=== PATIENT | female | born 1940 | race Caucasian/White ===

== ENCOUNTER 2022-04-11 06:09 | Emergency (ER) | payer MEDICARE, SELFPAY ==
--- NOTE | ~2022-04-11 | XR_ITS ---
EXAMINATION: XR FOOT, LEFT XR FOOT, RIGHT CLINICAL INFORMATION: Injury COMPARISON: None TECHNIQUE: 3 views of each foot FINDINGS: Left foot: Osteopenia. Postsurgical changes of the medial tarsometatarsal articulations with screw fixation and anchors. There is likely bony fusion. There are also anchors fusing the first interphalangeal joint. There appears to be bony fusion across the proximal interphalangeal joints of the second through fourth digits. Chronic eroded appearance of the second through fifth metatarsal heads. No acute fracture or malalignment. Soft tissue swelling. Heel spurs. Right foot: Osteopenia. Fixation hardware at the distal fibula. No acute fracture or malalignment. Mild soft tissue swelling throughout. XR/XR foot LT 2V IMPRESSION: No acute traumatic finding of either foot. Postsurgical changes of the left foot.
--- NOTE | ~2022-04-11 | XR_ITS ---
EXAMINATION: XR FOOT, LEFT XR FOOT, RIGHT CLINICAL INFORMATION: Injury COMPARISON: None TECHNIQUE: 3 views of each foot FINDINGS: Left foot: Osteopenia. Postsurgical changes of the medial tarsometatarsal articulations with screw fixation and anchors. There is likely bony fusion. There are also anchors fusing the first interphalangeal joint. There appears to be bony fusion across the proximal interphalangeal joints of the second through fourth digits. Chronic eroded appearance of the second through fifth metatarsal heads. No acute fracture or malalignment. Soft tissue swelling. Heel spurs. Right foot: Osteopenia. Fixation hardware at the distal fibula. No acute fracture or malalignment. Mild soft tissue swelling throughout. XR/XR foot RT 2V IMPRESSION: No acute traumatic finding of either foot. Postsurgical changes of the left foot.
[2022-04-11 06:25] VITALS: BP 140/82; PULSE 98; O2SAT 98
[2022-04-11 06:26] VITALS: BP 167/55; PULSE 85; RESP 18; TEMP 36.7; O2SAT 96; BMI 34.5
[2022-04-11 06:39] LABS: Appearance Urine HAZY; Color Urine YELLOW; Glucose Urine UA NEG (NEG); Leukocyte Esterase Urine 2+ (NEG); Nitrite Urine POS (NEG); PH 6.5 (5.0-8.0); UACC Culture Trigger YES; Urine Blood NEG (NEG); Urine Ketones NEG (NEG); Urine Protein NEG (NEG-TRACE)
--- NOTE | 2022-04-11 06:42 | ED.ABDPAIN ---
HPI - Abdominal Pain General Chief Complaint: Extremity Injury, Lower Stated Complaint: left flank pain Time Seen by Provider: 04/11/22 06:42 Source: patient Mode of arrival: ambulatory Related Data Allergies Allergy/AdvReac Type Severity Reaction Status Date / Time gentamicin [GENTAMICIN] Allergy Intermediate SWELLING Unverified 06/23/20 15:08 sulfamethoxazole Allergy Intermediate RASH Unverified 06/23/20 15:08 [From BACTRIM] trimethoprim [From BACTRIM] Allergy Intermediate RASH Unverified 06/23/20 15:08 acetaminophen [Tylenol] Allergy Unknown Verified 10/20/14 00:00 ibuprofen [Advil] Allergy Unknown Verified 10/20/14 00:00 naproxen [NAPROXEN] AdvReac Mild UNKNOWN Unverified 06/23/20 15:08 Imodium Advanced Allergy Unknown Uncoded 10/20/14 00:00 Physical Exam ED Vital Signs: Vital Signs - 24 hr 04/11/22 06:26 Temperature 98.1 F Pulse Rate 85 Respiratory Rate 18 Blood Pressure 167/55 H Pulse Oximetry 96 Oxygen Delivery Method Room Air BMI result Body Mass Index 34.5 MDM - Abdominal Pain Lab Data Labs: Lab Results 04/11/22 Range/Units 06:33 Urine Color YELLOW Urine Appearance HAZY Urine pH 6.5 (5.0-8.0) Ur Specific [place] 1.020 (1.005-1.025) Urine Protein NEG (NEG-TRACE) MG/DL Urine Glucose (UA) NEG (NEG) MG/DL Urine Ketones NEG (NEG) MG/DL Urine Blood NEG (NEG) Urine Nitrite POS H (NEG) Ur Leukocyte Esterase 2+ H (NEG)
[2022-04-11 06:45] LABS: Bacteria Urine 2+ /LPF; Mucus Urine TRACE /LPF; Renal Epithelial Cells Urine TRACE /LPF; Squamous Epithelial Cell Urine 1+ /LPF
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
[2022-04-11 07:07] VITALS: BP 157/62; PULSE 76; RESP 16; TEMP 36.5; O2SAT 99
[2022-04-11] MEDS: traMADoL HCL 50 MG TABLET PO (07:43)
== END 2022-04-11 08:40 | disposition home or self-care (01) ==
PROVIDERS: Emergency Provider Internal Medicine
DX: N39.0 Urinary tract infection, site not specified (principal); B96.20 Unspecified Escherichia coli [E. coli] as the cause of diseases classified elsewhere; S90.32XA Contusion of left foot, initial encounter; V00.838A Other accident with motorized mobility scooter, initial encounter; Y93.89 Activity, other specified; Y92.099 Unspecified place in other non-institutional residence as the place of occurrence of the external cause; Y99.9 Unspecified external cause status
CPT/HCPCS: 73620; 81001; 87086; 87088; 87186; 99283; 99284

== ENCOUNTER 2022-10-30 08:51 | Emergency (ER) | payer MEDICARE, SELFPAY ==
--- NOTE | ~2022-10-30 | XR_ITS ---
EXAMINATION: XR TIBIA AND FIBULA, LEFT CLINICAL INFORMATION: Pain over the proximal fibula. COMPARISON: None TECHNIQUE: AP and lateral views of the left tibia and fibula were obtained. FINDINGS: Total left knee arthroplasty noted. The visualized components are intact with appropriate alignment. No fracture or cortical disruption. Appropriate alignment at the ankle. The bones are osteopenic. Heel spurs are noted. Fixation hardware at the midfoot. Diffuse soft tissue swelling throughout the lower leg. XR/XR tibia fibula LT 2V IMPRESSION: Diffuse soft tissue swelling throughout the lower leg. No acute osseous abnormality.
[2022-10-30 09:04] VITALS: BP 191/65; PULSE 87; RESP 18; TEMP 37.1; O2SAT 98; BMI 25.0
[2022-10-30 09:09] VITALS: BP 191/65; PULSE 87; RESP 18; TEMP 37.1; O2SAT 98
--- NOTE | 2022-10-30 09:12 | PC.NURSE ---
82 y/o F pw chronic swelling to L leg, poor historian. unable to determine why she is presenting today, states she had leg surgery 12 years ago and needs a new provider. hypertensive on arrival, other VSS.
--- NOTE | 2022-10-30 09:20 | ED.GENADULT ---
HPI - General Adult General Chief complaint: General Medical Stated complaint: LLE SWELLING PER EMS Time Seen by Provider: 10/30/22 08:56 Source: patient Mode of arrival: EMS Limitations: no limitations History of Present Illness HPI narrative: Patient is an 82-year-old female who presents emergency department via EMS. She presents for evaluation of chronic left lower extremity pain and swelling. She reports an extensive history of surgery to the left foot ?arthritis? extending back thus far is 12 years ago with subsequent surgery about 8 years ago. Has chronic swelling to the left lower extremity, and pain particularly to the left foot. At this time she states that the swelling has been progressively worsening over the past year. She does state that she had an ultrasound obtained 2 months ago which did not show any evidence of a blood clot, and she is also on anticoagulation with Eliquis twice daily which she reports compliance with. Today, while her directional bore operator was in the home with her she had a near fall, reporting that her left leg gave out which is not uncommon for she is having pain particularly to the proximal fibular region with localized swelling. She states that she would like help arranging an appointment with physiatry, as her primary care provider has not called her back in the past week to arrange this. She currently has in-home physical therapy 4 times weekly. She resides in an independent living facility, but has care providers were in the home 29/04 with her. Related Data Previous Rx's Medication Instructions Recorded cefuroxime axetil 500 mg tablet 500 mg PO BID 7 days #14 tabs 04/11/22 Allergies Allergy/AdvReac Type Severity Reaction Status Date / Time gentamicin [GENTAMICIN] Allergy Intermediate SWELLING Unverified 06/23/20 15:08 sulfamethoxazole Allergy Intermediate RASH Unverified 06/23/20 15:08 [From BACTRIM] trimethoprim [From BACTRIM] Allergy Intermediate RASH Unverified 06/23/20 15:08 acetaminophen [Tylenol] Allergy Unknown Verified 10/20/14 00:00 ibuprofen [Advil] Allergy Unknown Verified 10/20/14 00:00 naproxen [NAPROXEN] AdvReac Mild UNKNOWN Unverified 06/23/20 15:08 Imodium Advanced Allergy Unknown Uncoded 10/20/14 00:00 Review of Systems Review of Systems: Constitutional: No weight loss, fever, chills, weakness or fatigue. Skin: No rash or itching. Cardiovascular: No chest pain, chest pressure or chest discomfort. No palpitations. Positive LLE edema Respiratory: No shortness of breath, cough or sputum production. Gastrointestinal: No anorexia, nausea, vomiting or diarrhea. No abdominal pain Genitourinary: No burning micturition. No urinary frequency or incontinence. Musculoskeletal: No muscle pain, back pain, joint pain or stiffness. Psychiatric: No depression or anxiety. Yes all other systems are reviewed and are negative PMFSH Past Medical History Attestation statement: The following information was validated with the patient. Source: old records reviewed Social History Social History Alcohol intake: never Patient Tobacco Use Status: Never used Tobacco Advance Directives: Yes Advance Directives Information Provided: Yes Advance Directives on File: No Physical Exam ED Vital Signs: Vital Signs - 24 hr 10/30/22 09:04 10/30/22 09:09 Temperature 98.7 F 98.7 F Pulse Rate 87 87 Respiratory Rate 18 18 Blood Pressure 191/65 H 191/65 H Pulse Oximetry 98 98 Oxygen Delivery Method Room Air Room Air BMI result Body Mass Index 25.0 Appearance: Alert.?Oriented to person, place and time. No acute distress.?Normal affect. Eyes: Pupils equal, round and reactive to light.? ENT: Pharynx normal.?? Neck: Normal inspection.? Neck supple.?? CVS: Heart sounds normal. Normal heart rate and rhythm.? Pulses normal.?? Respiratory: No respiratory distress.? Lung sounds clear to auscultation bilaterally?? Abdomen: Soft and non-tender. Normoactive bowel sounds. ?? Skin: Skin warm and dry.? Normal skin color.? Extremities: non-pitting edema to LLE.? No calf ttp. ?point tenderness over proximal fibula with localized swelling Neuro: Moves all extremities spontaneously. Sensation intact bilaterally. Course Reevaluation(s) Reevaluation #1: XR of the left tib-fib without any acute fracture, soft tissue swelling present. Discussed these findings with patient. She was offered to have physical therapy evaluation/case management involvement in the emergency department. After speaking with her son she is going to return home to independent living facility, she has caretakers in the home and already has outpatient physical therapy established. She is advised to follow-up with her primary care provider for further management of chronic pain and swelling. All questions were answered. We reviewed worsening signs and symptoms that would warrant re-evaluation in the emergency department. Time: 11:12 Medical Decision Making Medical Decision Making MDM Narrative: Patient is an 82-year-old female with past medical history of hypertension, atrial fibrillation on Eliquis, hyperlipidemia who presents emergency department for evaluation of chronic left lower extremity swelling, and proximal left lower leg pain after a near fall today where she reports that her left leg gave out. She has nonpitting edema present to the left leg, which is at baseline without any new acute increase. She is anticoagulated, had outpatient ultrasound reportedly 2 months ago which did not reveal any DVT, at this time low suspicion for DVT. Given near fall today, point tenderness over proximal fibula with localized swelling will obtain XR imaging to exclude fracture. Patient advised that she may have physical therapy evaluation in the emergency department as she expresses concern about her ability to remain in her independent living facility despite her directional bore operator in the home, walker, and in-home physical therapy services, she will further debate this. Advised that she will need to follow-up outpatient with her primary care provider in order to have referral to physiatry Differential Diagnosis Differential Diagnoses: The differential diagnosis associated with the presentation includes (As noted above) Independent Interpretation I performed an independent interpretation of an: Plain X-Ray Radiology Impression Discussion of test interpretation with radiology: I have reviewed the radiologist's reading. Radiologist Impression: XR/XR tibia fibula LT 2V IMPRESSION: Diffuse soft tissue swelling throughout the lower leg. No acute osseous abnormality. Discharge Plan Discharge Clinical Impression: Chronic leg pain Patient Disposition: Home, Self-Care Instructions: Leg Pain (ED) Additional Instructions: As we discussed, your x-ray today does not show any new injury to the left leg. Please follow-up with your primary care provider for further management. You may return back to emergency department with any new or worsening symptoms or concerns. You were offered to have case management/physical therapy evaluation in the emergency department today, however you opted to return home, and continue with in-home physical therapy, continued use of your walker, and assistance with your caregivers in home Prescriptions: No Action cefuroxime axetil 500 mg tablet 500 mg PO BID 7 Days Qty: 14 0RF Referrals: Buster Hyde MD [Primary Care Provider] - Interventions: ED Discharge Assessment Last Done: 10/30/22 12:01 Discharge Date/Time: 10/30/22 12:33
--- NOTE | 2022-10-30 12:03 | PC.NURSE ---
patient discharged with home health aide, awaiting ride home
== END 2022-10-30 12:33 | disposition home or self-care (01) ==
PROVIDERS: Emergency Provider Emergency Medicine; PCP Internal Medicine
DX: R60.0 Localized edema (principal); M79.605 Pain in left leg; M79.604 Pain in right leg; Z79.899 Other long term (current) drug therapy
CPT/HCPCS: 73590; 99283; 99284

== ENCOUNTER 2023-08-14 15:29 | Emergency (ER) | payer MEDICARE, SELFPAY ==
--- NOTE | ~2023-08-14 | XR_ITS ---
EXAMINATION: XR CHEST CLINICAL INFORMATION: Fever COMPARISON: None available. TECHNIQUE: Frontal view of the chest was obtained. FINDINGS: Mild left upper lobe atelectasis. Low lung volumes. No obvious failure or effusion. The cardiac silhouette is within normal limits. Calcified arch is noted. XR/XR chest 1V IMPRESSION: Limited exam. Low lung volumes. Possible mild atelectasis in left upper lung.
--- NOTE | ~2023-08-14 | CT_ITS ---
EXAMINATION: CT HEAD WITHOUT CONTRAST CLINICAL INFORMATION: Headache. COMPARISON: None available at the moment of this dictation. TECHNIQUE: Contiguous axial imaging was performed from the skull base to vertex without intravenous administration of contrast. This CT examination was performed using dose optimization techniques as appropriate, variously including the following: *Automated exposure control *Adjustment of mA and/or kV according to patient size (this includes techniques or standardized protocols for targeted exams where dose is matched to indication/reason for exam; i.e. extremities or head) *Use of iterative reconstruction technique DLP: 622 mGy-cm FINDINGS: Encephalomalacia/gliosis in the anteroinferior right temporal lobe with associated ex vacuo dilatation of the temporal horn of lateral ventricle. There is no evidence of acute intracranial hemorrhage or edematous territorial infarction. A few foci of hypoattenuation in the periventricular and deep white matter are consistent with mild microangiopathy. Bojorquez-white matter differentiation is preserved. Proportional prominence of the ventricles and sulcal spaces. No evidence for obstructive hydrocephalus. No abnormal mass effect or midline shift. No extra-axial fluid collections. Low-lying cerebellar tonsils to approximately 2 mm below the foramen magnum. No acute soft tissue or osseous abnormalities. The mastoid air cells and paranasal sinuses are clear. CT/CT head/brain wo IV con IMPRESSION: 1. No evidence of acute intracranial hemorrhage or edematous territorial infarction. 2. 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 3. Encephalomalacia/gliosis in the anteroinferior right temporal lobe with associated ex vacuo dilatation of the temporal horn of the right lateral ventricle. 4. Low-lying cerebellar tonsils to approximately 2 mm below the foramen magnum.
--- NOTE | ~2023-08-14 | CT_ITS ---
EXAMINATION: CT ABDOMEN AND PELVIS WITH CONTRAST CLINICAL INFORMATION: COMPARISON: None available. TECHNIQUE: Multidetector volumetric images were obtained from the superior aspect of the liver through the pubic symphysis following administration 85 mL of Omnipaque 350 intravenous contrast. Sagittal and coronal reformatted images were obtained on the technologist's workstation. Oral contrast: Yes This CT examination was performed using dose optimization techniques as appropriate, variously including the following: *Automated exposure control *Adjustment of mA and/or kV according to patient size (this includes techniques or standardized protocols for targeted exams where dose is matched to indication/reason for exam; i.e. extremities or head) *Use of iterative reconstruction technique DLP: 1536 mGy-cm FINDINGS: LUNG BASES: Small bilateral pleural effusions and lower lobe atelectasis LIVER, GALLBLADDER, AND BILIARY TREE: The liver is normal in size, shape, and attenuation. Small cyst in the inferior measuring 1 cm. No other focal hepatic lesion or gallbladder is been removed. There is mild intra and extrahepatic biliary duct dilatation. Common bile duct measures up to 9 mm. PANCREAS: Unremarkable. SPLEEN: Unremarkable. ADRENAL GLANDS: Unremarkable. KIDNEYS AND URETERS: The kidneys are normal in size, shape, and attenuation. No hydronephrosis, hydroureter, or calculi seen. No perinephric stranding. BLADDER: I attenuation inferior to the bladder likely related to a silicon injection/urology consult procedure. GASTROINTESTINAL TRACT: Diverticulosis of the colon. No evidence of diverticulitis. Constipation. The small and large bowel are unremarkable. The appendix is unremarkable. ABDOMINAL WALL: Diastasis of the rectus muscles and small umbilical hernia containing fat. LYMPH NODES: Normal. VASCULAR: Atherosclerotic disease. No aneurysm. PELVIC VISCERA: 2 cm left ovarian cyst. Probably benign. No follow-up recommended. OSSEOUS STRUCTURES: L1 and L2 vertebral body compression fractures and post kyphoplasty change. Mild appearing compression fracture of the superior end plate of the L3 body. Scoliosis. Degenerative changes of the spine. CT/CT abdomen pelvis w IV con IMPRESSION: Diverticulosis and constipation. Postcholecystectomy. Slightly dilated intra and extrahepatic bile ducts. This may be normal post cholecystectomy Correlation with liver function tests recommended. This could be better evaluated with ultrasound or MRCP if clinically indicated. Fleischner guidelines were followed.
[2023-08-14 15:42] VITALS: BP 109/33; PULSE 120; O2SAT 94
[2023-08-14 15:46] VITALS: BMI 38.1
[2023-08-14 15:48] VITALS: BP 157/69; PULSE 103; RESP 20; TEMP 37.8; O2SAT 93
--- NOTE | 2023-08-14 15:49 | ECG_ITS ---
Test Reason : UROGENETAL Blood Pressure : / mmHG Vent. Rate : 104 BPM Atrial Rate : 104 BPM P-R Int : 178 ms QRS Dur : 082 ms QT Int : 364 ms P-R-T Axes : 068 046 089 degrees QTc Int : 478 ms Sinus tachycardia with Premature supraventricular complexes Nonspecific ST and T wave abnormality Abnormal ECG When compared with ECG of 17-JUL-2015 11:06, Premature supraventricular complexes are now Present Vent. rate has increased BY 43 BPM Nonspecific T wave abnormality now evident in Lateral leads T wave amplitude has decreased in Inferior leads Lateral leads Referred By: Generic ED Physician Electronically Signed By:GABBI COUGHLIN MD
--- NOTE | 2023-08-14 15:49 | MHC.EDTECH ---
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
[2023-08-14 16:12] LABS: Basophils Percent Auto 0.2 % (0-2); Eosinophils Percent Auto 0.1 % (0-4); Hematocrit 34.4 % (37.0-47.0); Hemoglobin 11.5 g/dl (12.0-16.0); Imm Gran Abs Auto 0.09 X10*3/uL (0.00-0.03); Imm Gran Pct Auto 0.6 % (0.0-0.4); Lymphocytes Absolute Auto 0.3 X10*3/uL (1.2-4.9); Lymphocytes Percent Auto 2.1 % (20-40); MANUAL DIFF FLAG SCAN; Mean Corpuscular HGB Conc 33.4 g/dl (31.0-35.0); Mean Corpuscular Hemoglobin 31.2 pg (27.0-33.0); Mean Corpuscular Volume 93.2 fL (80.0-98.0); Mean Platelet Volume 10.8 fL (9.4-12.3); Monocytes Absolute Auto 0.4 X10*3/uL (0.1-1.2); Monocytes Percent Auto 2.3 % (2-11); Neutrophils Absolute Auto 14.1 x10*3/uL (2.0-8.3); Neutrophils Percent Auto 94.7 % (45-73); Platelet Count 190 X10*3/uL (160-400); Red Blood Count 3.69 X10*6/uL (4.20-5.50); Red Cell Distribution Width 13.2 % (11.0-16.0); SCAN SMEAR FLAG 1; White Blood Count 14.9 X10*3/uL (4.8-10.8)
[2023-08-14 16:17] VITALS: BP 140/63; PULSE 98; RESP 22; TEMP 37.6; O2SAT 93
--- NOTE | 2023-08-14 16:18 | MHC.EDTECH ---
Pt blood drawn including both sets of blood culture and lactic acid ,ekg taken and was read by Provider .
[2023-08-14 16:30] LABS: Alanine Aminotransferase 127 U/L (0-31); Albumin Level 3.5 g/dL (3.5-5.0); Alkaline Phosphatase 92 U/L (39-117); Anion Gap 13 (12-20); Aspartate Amino Transferase 210 U/L (5-31); Blood Urea Nitrogen 24 mg/dL (9-16); Carbon Dioxide 24 mmol/L (22-29); Chloride 108 mmol/L (96-108); Creatinine Clr Calc Pharmacy 65.8; Estimated Glomerular Filt Rate > 60; Glucose Random 114 mg/dL (60-115); Potassium 3.5 mmol/L (3.3-5.1); Sodium 141 mmol/L (135-145); Total Protein 6.4 g/dL (6.5-8.0)
--- NOTE | 2023-08-14 16:34 | ED_ITS ---
HPI - Female Genitourinary General Chief complaint: Urogenital-Female Stated complaint: POSSIBLE SEPSIS W/ UTI Time Seen by Provider: 08/14/23 15:52 Source: patient Mode of arrival: EMS Limitations: no limitations History of Present Illness HPI Narrative: 83 years old with past medical history of recurrent UTIs, who lives by herself, presents emergency room for evaluation of altered mental status. History is taken partially from patient herself and partially from son josh. According to the son patient was diagnosed last week with a UTI, she was started on antibiotic yesterday but today the patient was very confused, not making sense and son reported that he checked her vital signs and at her SpO2 was low in the 70s and heart rate was I more than 100. Patient reports that she has being having generalized body aches, headache and abdominal pain with increased urinary frequency for the past few days. She is oriented to time, place and person at time of examination. Reports pain 8/10 in her head, mild tenderness 4/10 diffuse in her abdomen, denies shortness of breath or cough. Patient also denies chest pain ureter weakness or blurry vision Related Data Previous Rx's Medication Instructions Recorded cefuroxime axetil 500 mg tablet 500 mg PO BID 7 days #14 tabs 04/11/22 cefpodoxime 200 mg tablet 200 mg PO BID #10 tabs 08/14/23 Allergies Allergy/AdvReac Type Severity Reaction Status Date / Time gentamicin [GENTAMICIN] Allergy Intermediate SWELLING Unverified 06/23/20 15:08 sulfamethoxazole Allergy Intermediate RASH Unverified 06/23/20 15:08 [From BACTRIM] trimethoprim [From BACTRIM] Allergy Intermediate RASH Unverified 06/23/20 15:08 acetaminophen [Tylenol] Allergy Unknown Verified 10/20/14 00:00 ibuprofen [Advil] Allergy Unknown Verified 10/20/14 00:00 naproxen [NAPROXEN] AdvReac Mild UNKNOWN Unverified 06/23/20 15:08 Imodium Advanced Allergy Unknown Uncoded 10/20/14 00:00 Review of Systems 2 Review of Systems: Yes all other systems are reviewed and are negative [facility] Social History Social History Alcohol intake: never Patient Tobacco Use Status: Never used Tobacco Smoked in Last 30 Days: No Use of substances other than those prescribed or required for medical reasons: No Advance Directives: No Advance Directives Information Provided: No Physical Exam 2 Vital Signs: Vital Signs: Last Vital Signs Temp 99.6 F 08/14/23 16:17 Pulse 98 08/14/23 16:17 Resp 22 H 08/14/23 16:17 BP 140/63 H 08/14/23 16:17 Pulse Ox 93 08/14/23 16:17 O2 Del Method Room Air 08/14/23 16:17 BMI result Body Mass Index 38.1 General: Alert, Not in Distress Skin: No rash, warm HEENT: Atraumatic, No Exudate or Pharyngeal Erythema Resp: Normal Breath sounds bilaterally Cardio: Regular rate and Rhythm, Normal S1, S2 ABD: Abd tender diffuse, no guarding or rebound. Normal Bowel sounds. : No cva tenderness Neuro: Alert, oriented x4, PERRL Strenght 5/5 on all extremities Sensation is preserved in both lower and upper extremities Index to nose: normal Cranial Nerves II-XII grossly intact No dysarthria, or aphasia No neglet. Visual coulter are normal bilaterally Psych: Cooperative, NO SI Course Reevaluation(s) Reevaluation #1: Patient blood work showed leukocytosis, which may be secondary to the recent UTI. I sent another sample of urine however patient has been on antibiotic therefore I do not expect these to be very helpful. Patient BMP is otherwise unremarkable. Will give patient IV fluids. Given patient age and abdominal pain will also get CT abdomen. not encephalopathic, her blood pressure and arthritis being stable in the emergency room. Will hold on antibiotics. Time: 19:55 Reevaluation #2: CT abdomen showed mild dilatation of the CBD, patient has mild elevation of liver function tests but alk-phos and bilirubin are within normal limits. I do not think this finding needs to be further investigated the setting patient. At this time I think patient would be a good candidate for outpatient treatment of UTI, she has remained emergency for 4 hours and her vital signs have remained stable. I discussed this possibility with her son, he does not have the capability to [facility] and patient is sent home with an ambulance will not have any home med. Some improvement that see any will be available at 8:00 a.m. tomorrow and that is agreeable with the patient going home. Patient is on nitrofurantoin at home for UTI however given today's episodes will give 1 dose of ceftriaxone in the emergency room and started patient on cefuroxime which she has used in the past. Plan is to DC patient tomorrow. Charge nurse informed. Time: 21:53 Reevaluation #3: will sign out to dr keyes. marichuy no signs of hemodynamic instability. Medications Administered Discontinued Medications Generic Name Dose Route Start Last Admin Trade Name Freq PRN Reason Stop Dose Admin Acetaminophen 975 mg 08/14/23 19:11 08/14/23 20:19 Acetaminophen 325 Mg Tablet PO 08/14/23 19:12 975 mg ONCE ONE Administration Sodium Chloride 500 mls @ 999 mls/hr 08/14/23 16:45 08/14/23 17:32 Ns IV 08/14/23 17:15 Infused .Q31M MARKEL Infusion Ceftriaxone Sodium 1 gm/ 50 mls @ 100 mls/hr 08/14/23 19:22 08/14/23 20:20 Sodium Chloride IV 08/14/23 19:51 100 mls/hr ONCE ONE Administration Iohexol 85 ml 08/14/23 18:32 08/14/23 18:33 Iohexol 350 Mg/Ml 100 Ml Infus..Btl IV 08/14/23 18:33 85 ml ONCE ONE Administration Medical Decision Making Lab Data MDM Lab Attestation statement: I reviewed the patient's lab results. 08/14/23 16:05 08/14/23 16:05 Labs: Lab Results 08/14/23 08/14/23 08/14/23 Range/Units 16:05 16:08 16:58 WBC 14.9 H (4.8-10.8) X10*3/uL RBC 3.69 L (4.20-5.50) X10*6/uL Hgb 11.5 L (12.0-16.0) g/dl Hct 34.4 L (37.0-47.0) % MCV 93.2 (80.0-98.0) fL MCH 31.2 (27.0-33.0) pg MCHC 33.4 (31.0-35.0) g/dl RDW 13.2 (11.0-16.0) % Plt Count 190 (160-400) X10*3/uL MPV 10.8 (9.4-12.3) fL Immature Gran % (Auto) 0.6 H (0.0-0.4) % Neut % (Auto) 94.7 H (45-73) % Lymph % (Auto) 2.1 L (20-40) % [place] % (Auto) 2.3 (2-11) % Eos % (Auto) 0.1 (0-4) % Baso % (Auto) 0.2 (0-2) % Lymph # (Auto) 0.3 L (1.2-4.9) X10*3/uL [place] # (Auto) 0.4 (0.1-1.2) X10*3/uL Eos # (Auto) 0.0 (0.0-0.4) X10*3/uL Baso # (Auto) 0.0 (0.0-0.2) X10*3/uL Abs Immat Gran (auto) 0.09 H (0.00-0.03) X10*3/uL Absolute Neuts (auto) 14.1 H (2.0-8.3) x10*3/uL Absolute Nucleated RBC 0.000 (0.0-0.012) X10*3/uL Nucleated RBC % (auto) 0.0 (0.0-0.2) /100WBC Smear Tech's Comments VERIFIED Sodium 141 (135-145) mmol/L Potassium 3.5 (3.3-5.1) mmol/L Chloride 108 (96-108) mmol/L Carbon Dioxide 24 (22-29) mmol/L Anion Gap 13 (12-20) BUN 24 H (9-16) mg/dL Creatinine 0.72 (0.5-1.4) mg/dL Estim Creat Clear Calc 65.8 Estimated GFR > 60 Random Glucose 114 (60-115) mg/dL Lactic Acid 1.9 (0.5-2.0) mmol/L Calcium 9.0 (8.4-10.2) mg/dL Total Bilirubin 1.0 (0.0-1.0) mg/dL AST 210 H (5-31) U/L ALT 127 H (0-31) U/L Alkaline Phosphatase 92 (39-117) U/L Total Protein 6.4 L (6.5-8.0) g/dL Albumin 3.5 (3.5-5.0) g/dL Urine Color Urine Appearance Urine pH (5.0-9.0) Ur Specific [place] (1.005-1.025) Urine Protein (Neg-Trace) mg/dL Urine Glucose (UA) (Negative) mg/dL Urine Ketones (Negative) mg/dL Urine Blood (Negative) Urine Nitrite (Negative) Ur Leukocyte Esterase (Negative) Urine RBC (0-2) /HPF Urine WBC (0-5) /HPF Ur Squamous Epith Cells (0-2) /HPF Urine Bacteria (None Seen) Hyaline Casts (0-2) /LPF Influenza Type A (PCR) NEGATIVE (Negative) Influenza Type B (PCR) NEGATIVE (Negative) RSV RNA Qual (PCR) NEGATIVE (Negative) SARS-CoV-2 RNA (RT-PCR) NEGATIVE (Negative) 08/14/23 Range/Units 19:43 WBC (4.8-10.8) X10*3/uL RBC (4.20-5.50) X10*6/uL Hgb (12.0-16.0) g/dl Hct (37.0-47.0) % MCV (80.0-98.0) fL MCH (27.0-33.0) pg MCHC (31.0-35.0) g/dl RDW (11.0-16.0) % Plt Count (160-400) X10*3/uL MPV (9.4-12.3) fL Immature Gran % (Auto) (0.0-0.4) % Neut % (Auto) (45-73) % Lymph % (Auto) (20-40) % [place] % (Auto) (2-11) % Eos % (Auto) (0-4) % Baso % (Auto) (0-2) % Lymph # (Auto) (1.2-4.9) X10*3/uL [place] # (Auto) (0.1-1.2) X10*3/uL Eos # (Auto) (0.0-0.4) X10*3/uL Baso # (Auto) (0.0-0.2) X10*3/uL Abs Immat Gran (auto) (0.00-0.03) X10*3/uL Absolute Neuts (auto) (2.0-8.3) x10*3/uL Absolute Nucleated RBC (0.0-0.012) X10*3/uL Nucleated RBC % (auto) (0.0-0.2) /100WBC Smear Tech's Comments Sodium (135-145) mmol/L Potassium (3.3-5.1) mmol/L Chloride (96-108) mmol/L Carbon Dioxide (22-29) mmol/L Anion Gap (12-20) BUN (9-16) mg/dL Creatinine (0.5-1.4) mg/dL Estim Creat Clear Calc Estimated GFR Random Glucose (60-115) mg/dL Lactic Acid (0.5-2.0) mmol/L Calcium (8.4-10.2) mg/dL Total Bilirubin (0.0-1.0) mg/dL AST (5-31) U/L ALT (0-31) U/L Alkaline Phosphatase (39-117) U/L Total Protein (6.5-8.0) g/dL Albumin (3.5-5.0) g/dL Urine Color Yellow Urine Appearance Clear Urine pH 5.5 (5.0-9.0) Ur Specific [place] >= 1.030 H (1.005-1.025) Urine Protein Negative (Neg-Trace) mg/dL Urine Glucose (UA) Negative (Negative) mg/dL Urine Ketones Trace (Negative) mg/dL Urine Blood Trace H (Negative) Urine Nitrite Negative (Negative) Ur Leukocyte Esterase Small (1+) H (Negative) Urine RBC 3-5 H (0-2) /HPF Urine WBC >50 H (0-5) /HPF Ur Squamous Epith Cells 0-2 (0-2) /HPF Urine Bacteria Trace (None Seen) Hyaline Casts 0-2 (0-2) /LPF Influenza Type A (PCR) (Negative) Influenza Type B (PCR) (Negative) RSV RNA Qual (PCR) (Negative) SARS-CoV-2 RNA (RT-PCR) (Negative) Independent Historian Clinical information obtained from an independent historian. History obtained from or confirmed by: Other (Son josh.) Discharge Plan Discharge Clinical Impression: Urinary tract infection Instructions: Acute Urinary Retention in Women (ED) Additional Instructions: You were seen in the emergency room for generalized weakness. Your symptoms may be consistent with a urinary tract infection for which she received 1 dose of IV antibiotic in the emergency room. Throughout your staying here vital signs have been stable and at this time we believe you are safe to be treated as outpatient. We recommend to stop with nitrofurantoin Would recommend starting cefpodoxime 200 mg twice a day for the next 5 days starting on the 15 of August. Return to the emergency room his symptoms worsen. Prescriptions: New cefpodoxime 200 mg tablet 200 mg PO BID Qty: 10 0RF Rx Instructions: must administer with a meal/food No Action cefuroxime axetil 500 mg tablet 500 mg PO BID 7 Days Qty: 14 0RF
[2023-08-14 16:45] LABS: SLIDE REVIEW VERIFIED
[2023-08-14] MEDS: 0.9 % Sodium Chloride 500 ML 999 ML IV (16:52)
--- NOTE | 2023-08-14 16:59 | MHC.EDTECH ---
Rsv /covid swab collected and sent to lab .
[2023-08-14 17:02] LABS: Lactic Acid 1.9 mmol/L (0.5-2.0)
--- NOTE | 2023-08-14 17:16 | PC.NURSE ---
pt son, Horacio, called sts they called 911 due to pt being febrile, low O2 sat, elevated HR, decreasing BP. horacio also sts pt had AMS. he called her doctor and said to come to [facility]. horacio sts his sister will be here soon to stay with pt. left his number and would like to be notified with any changes. Horacio (son, proxy, POA): [phone] (to leave voicemail)
[2023-08-14 17:46] LABS: Influenza A PCR NEGATIVE (Negative); Influenza B PCR NEGATIVE (Negative); Resp Syncy Virus RNA Qual PCR NEGATIVE (Negative); SARS COV2 PCR INHOUSE NEGATIVE (Negative)
--- NOTE | 2023-08-14 18:28 | PC.NURSE ---
pt back from CT. given blanket. resting quietly on stretcher in no apparent distress. pt put back on monitor. sating 94% room air. call patel within pt reach. plan of care ongoing.
[2023-08-14] MEDS: iohexoL 350 MG/ML 100 ML INFUS..BTL 85 ML IV (18:33)
--- NOTE | 2023-08-14 19:23 | PC.NURSE ---
pt given OK by for drink. provided with water by tech. pt tolerating well. rr even/unlabored. plan of care ongoing. report given to BRADEN Hernandez.
[2023-08-14 19:56] LABS: Appearance Urine Clear; Color Urine Yellow; Glucose Urine UA Negative (Negative); Leukocyte Esterase Urine Small (1+) (Negative); Nitrite Urine Negative (Negative); PH 5.5 (5.0-9.0); Specific Gravity - Urine >= 1.030 (1.005-1.025); UMIC TRIGGER UACC YES; Urine Blood Trace (Negative); Urine Ketones Trace mg/dL (Negative); Urine Protein Negative (Neg-Trace)
[2023-08-14 20:03] LABS: Bacteria Urine Trace (None Seen); Hyaline Casts Urine 0-2 /LPF (0-2); Squamous Epithelial Cell Urine 0-2 /HPF (0-2); UACC Culture Trigger YES; WBC Urine >50 /HPF (0-5)
[2023-08-14] MEDS: Acetaminophen 325 MG TABLET 975 MG PO (20:19)
[2023-08-14] MEDS: cefTRIAXone sodium 1 GM in 0.9 % Sodium Chloride 50 ML IV (20:20)
[2023-08-14 22:07] VITALS: RESP 16
--- NOTE | 2023-08-14 22:20 | PC.NURSE ---
Patient is alert and oriented x3, confused at times. VSS. Purewick in place, patent, draining yellow, cloudy urine. Patient repositioned, pillow placed under her ankle, call patel within patient's reach.
[2023-08-14 23:07] VITALS: BP 94/39; PULSE 78; RESP 20; TEMP 36.9; O2SAT 93
[2023-08-15 03:08] VITALS: BP 92/38; PULSE 78; RESP 18; O2SAT 92
--- NOTE | 2023-08-15 04:33 | PC.NURSE ---
Patient became incontinent of BM, pericare provided. Patient repositioned. Purewick in place. Call patel within patient's reach.
[2023-08-15 05:43] VITALS: BP 83/38; PULSE 76; RESP 16; TEMP 36.5; O2SAT 93
[2023-08-15 08:09] VITALS: BP 102/42; PULSE 92; RESP 14; TEMP 36.9; O2SAT 96
--- NOTE | 2023-08-15 08:14 | PC.NURSE ---
patient awake, ate all of her breakfast. awaiting her son to come pick her up at around 0900
--- NOTE | 2023-08-15 09:42 | PC.NURSE ---
call placed to son inquiring about transportation back home upon discharge. states that they will be procuring a wheelchair van shortly for patient to be picked up from emergency department. patient remains alert and oriented in room, conversing with staff appropriately. cleaned and changed in room. awaiting transportation home.
== END 2023-08-15 10:25 | disposition home or self-care (01) ==
PROVIDERS: Emergency Provider Student in an Organized Health Care Education/Training Program
DX: N39.0 Urinary tract infection, site not specified (principal); R41.82 Altered mental status, unspecified; R51.9 Headache, unspecified; M54.2 Cervicalgia; R10.2 Pelvic and perineal pain; R00.0 Tachycardia, unspecified; R50.9 Fever, unspecified; Z20.822 Contact with and (suspected) exposure to COVID-19; Z20.828 Contact with and (suspected) exposure to other viral communicable diseases; Z79.899 Other long term (current) drug therapy
CPT/HCPCS: 0241U; 36415; 70450; 71045; 74177; 80053; 81001; 81003; 83605; 85025; 87040; 87086; 93005; 96361; 96365; 99284; 99285; J0696; Q9967

== ENCOUNTER 2024-01-06 10:46 | Inpatient (IN) | payer MEDICARE, SELFPAY ==
--- NOTE | ~2024-01-06 | XR_ITS ---
EXAMINATION: XR CHEST CLINICAL INFORMATION: Preoperative. Femur fracture. COMPARISON: 08/14/2023 TECHNIQUE: Frontal view of the chest was obtained. FINDINGS: Linear opacity of mild atelectasis in the inferior lingula and medial right lung base. Also, there is linear opacity from atelectasis or scarring in right upper lobe. No acute airspace disease. No evidence of pulmonary edema, pleural effusion or pneumothorax. Cardiac silhouette is in the normal size range. The mitral valve annulus is calcified. Atherosclerotic calcification of the aorta. Bones appear to be diffusely osteoporotic. Prior cement augmentation of compressed L1 and L2 vertebra. XR/XR chest 1V IMPRESSION: * There are a few linear opacities of atelectasis in each lung. * No radiographic evidence of pneumonia. * No evidence of congestive heart failure.
--- NOTE | ~2024-01-06 | XR_ITS ---
EXAMINATION: XR ANKLE, RIGHT CLINICAL INFORMATION: Ankle pain COMPARISON: None available. TECHNIQUE: Two views of the right ankle. FINDINGS: There is diffuse osteopenia. Prior fixation of a distal fibular fracture. No definite new fractures are identified, however if the AP view is limited secondary to patient positioning and crosstable approach as well as osteopenia. The ankle more T's appears intact on the lateral exam. There is degenerative disease throughout the hindfoot. There are atherosclerotic calcifications. XR/XR ankle RT min 3V IMPRESSION: 1. Prior fixation of a distal fibular fracture. 2. No definite new fractures are identified, however if the patient has persistent pain, consider repeat AP view.
--- NOTE | ~2024-01-06 | FL_ITS ---
EXAMINATION: XR FLUOROSCOPY WITH IMAGES CLINICAL INFORMATION: Retrograde intramedullary nail. COMPARISON: Left hip radiographs 01/06/2024 TECHNIQUE: Fluoroscopy Supervised By: Dr. Amor Reaves. Fluoroscopy Time: 1.7 minutes Cumulative Dose: 46.7 mGy-cm DAP: 0.51 Gy-m2 Images: 5. FINDINGS: Imaging demonstrates an intramedullary gisell and screws in the distal left femur. A left knee prosthesis is once again seen. Please see Dr. Amor Reaves's procedure report for full details. FL/FL guidance in OR IMPRESSION: Fluoroscopy and spot films provided during ORIF of left femur.
--- NOTE | ~2024-01-06 | XR_ITS ---
EXAMINATION: LEFT HIP, LEFT KNEE CLINICAL INFORMATION: Pain after fall COMPARISON: CT abdomen pelvis 08/14/2023 TECHNIQUE: 2 views left knee, 2 views left hip FINDINGS: There is a spiral comminuted fracture involving distal left femur with lateral displacement and slight varus angulation of the distal fracture fragment. The fracture extends to the region of the femoral component of the total left knee prosthesis. Urethral bulking agent is seen in the region of the urethra. Degenerative changes are seen in both hips. No pelvic or hip fracture. Marked degenerative changes in the visualized lumbar spine. XR/XR knee LT 2V IMPRESSION: Comminuted spiral fracture distal left femur with lateral displacement and slight varus angulation as described above.
--- NOTE | ~2024-01-06 | XR_ITS ---
EXAMINATION: XR KNEE, RIGHT CLINICAL INFORMATION: Knee pain COMPARISON: None available. TECHNIQUE: Three views of the right knee. FINDINGS: Prosthetic components of the total knee arthroplasty are appropriately aligned without periprosthetic fracture or abnormal lucency. No component migration. No joint effusion. There is atherosclerotic calcification. XR/XR knee RT 3V IMPRESSION: Appropriate alignment of the right total knee arthroplasty without evidence of complications.
--- NOTE | ~2024-01-06 | XR_ITS ---
EXAMINATION: XR CHEST CLINICAL INFORMATION: Hypoxia COMPARISON: 01/06/2024 TECHNIQUE: Frontal view of the chest was obtained. FINDINGS: There is low lung volume bilaterally with linear scarring/atelectasis in the right upper lobe and lingula. Cardiomediastinal silhouette is unremarkable. There is no consolidations or pleural effusion. XR/XR chest 1V IMPRESSION: Right upper lobe and left lower lobe scarring/atelectasis
--- NOTE | ~2024-01-06 | US_ITS ---
EXAMINATION: US VENOUS ULTRASOUND WITH DOPPLER LOWER EXTREMITY, BILATERAL CLINICAL INFORMATION: Pain in the right lower extremity COMPARISON: None available. TECHNIQUE: Ultrasound of the deep veins is performed from the hip to the calf with compression sonography and color and pulse Doppler assessment. Spectral analysis with color-flow imaging is performed. FINDINGS: RIGHT: There is normal venous respiratory variation and augmented flow. The visualized common femoral vein, superficial femoral vein, profunda femoral vein, popliteal vein, and the trifurcation region shows no evidence of deep venous thrombosis. There is no significant popliteal fossa cyst. The patient was unable to tolerate compression secondary to pain. LEFT: There is normal venous compression and respiratory variation and augmented flow. The visualized common femoral vein, superficial femoral vein, profunda femoral vein, popliteal vein, and the trifurcation region shows no evidence of deep venous thrombosis. There is no significant popliteal fossa cyst. If the patient's symptoms persist, followup ultrasound in 5 days 7 days might be of value to exclude proximal propagation from a non-visualized calf vein. US/US venous duplex LE BI IMPRESSION: No DVT demonstrated in the bilateral lower extremity.
--- NOTE | ~2024-01-06 | XR_ITS ---
EXAMINATION: XR HIP, RIGHT CLINICAL INFORMATION: Right hip pain COMPARISON: CT abdomen and pelvis 08/14/2023, left hip radiographs 01/06/2024 TECHNIQUE: Two views of the right hip. FINDINGS: Exam is significantly technically limited by overlying material and background of generalized osteopenia. A hip fracture is not discerned with certainty however as described the right hip is partially obscured by overlying material and recommend repeat radiographs. Mild osteoarthritis of the hips. 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 Desiccated stool in the colon and rectum. High density material overlying the region of the urethra may reflect sequelae of posttreatment change. Left femoral ORIF partially imaged. Soft tissue lex overlie the left hip. XR/XR hip RT w PEL1V IMPRESSION: 1. Exam is significantly technically limited by overlying material and background of generalized osteopenia. A hip fracture is not discerned with certainty however as described the right hip is partially obscured by overlying material and recommend repeat radiographs. 2. Mild osteoarthritis of the hips. 3. 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
--- NOTE | ~2024-01-06 | XR_ITS ---
EXAMINATION: LEFT HIP, LEFT KNEE CLINICAL INFORMATION: Pain after fall COMPARISON: CT abdomen pelvis 08/14/2023 TECHNIQUE: 2 views left knee, 2 views left hip FINDINGS: There is a spiral comminuted fracture involving distal left femur with lateral displacement and slight varus angulation of the distal fracture fragment. The fracture extends to the region of the femoral component of the total left knee prosthesis. Urethral bulking agent is seen in the region of the urethra. Degenerative changes are seen in both hips. No pelvic or hip fracture. Marked degenerative changes in the visualized lumbar spine. XR/XR hip LT w PEL1V IMPRESSION: Comminuted spiral fracture distal left femur with lateral displacement and slight varus angulation as described above.
[2024-01-06 10:54] VITALS: BP 118/54; BP 123/46; PULSE 75; PULSE 98; RESP 18; TEMP 36.8; O2SAT 93; O2SAT 95; BMI 33.3
--- NOTE | 2024-01-06 12:38 | ED.FALL ---
HPI - Fall General Chief Complaint: Fall Stated Complaint: L LEG PAIN S/P FALL T-1 PER EMS Time Seen by Provider: 01/06/24 12:03 Source: patient Mode of arrival: EMS History of Present Illness HPI Narrative: 83-year-old female on chronic anticoagulation who sustained a mild fall on Saturday afternoon, she is only able to transition from chair to bed, she is nonambulatory and has complaints of left hip and knee pain. She denies any head strike and family as well as healthcare aide at the bedside confirmed that patient did not hit her head and there was no loss consciousness. Patient has known UTI and is currently on Macrobid. Related Data Home Medications Medication Instructions Recorded Confirmed acetaminophen 325 mg tablet 325 mg PO QID PRN Pain 01/06/24 01/06/24 apixaban 5 mg tablet (Eliquis) 5 mg PO BID 01/06/24 01/06/24 atorvastatin 10 mg tablet 10 mg PO BEDTIME 01/06/24 01/06/24 cholecalciferol (vitamin D3) 25 25 mcg PO DAILY 01/06/24 01/06/24 mcg (1,000 unit) tablet ferrous sulfate 324 mg (65 mg 324 mg PO DAILY 01/06/24 01/06/24 iron) tablet,delayed release gabapentin 100 mg capsule 100 mg PO TID 01/06/24 01/06/24 lisinopril 10 mg tablet 10 mg PO DAILY 01/06/24 01/06/24 magnesium oxide 400 mg PO DAILY 01/06/24 01/06/24 memantine 5 mg tablet 5 mg PO BID 01/06/24 01/06/24 metoprolol succinate 25 mg 25 mg PO DAILY 01/06/24 01/06/24 tablet,extended release 24 hr mirabegron 50 mg tablet,extended 50 mg PO DAILY 01/06/24 01/06/24 release 24 hr (Myrbetriq) multivitamin 1 tab PO DAILY 01/06/24 01/06/24 Allergies Allergy/AdvReac Type Severity Reaction Status Date / Time gentamicin [GENTAMICIN] Allergy Intermediate SWELLING Unverified 06/23/20 15:08 sulfamethoxazole Allergy Intermediate RASH Unverified 06/23/20 15:08 [From BACTRIM] trimethoprim [From BACTRIM] Allergy Intermediate RASH Unverified 06/23/20 15:08 acetaminophen [Tylenol] Allergy Unknown Verified 10/20/14 00:00 ibuprofen [Advil] Allergy Unknown Verified 10/20/14 00:00 naproxen [NAPROXEN] AdvReac Mild UNKNOWN Unverified 06/23/20 15:08 Imodium Advanced Allergy Unknown Uncoded 10/20/14 00:00 Review of Systems Review of Systems: Pertinent positives and negatives as stated in [facility] Past Medical History Source: nursing notes reviewed Social History Social History Alcohol intake: former Patient Tobacco Use Status: Never used Tobacco Smoked in Last 30 Days: No Use of substances other than those prescribed or required for medical reasons: No Advance Directives: No Advance Directives Information Provided: No Physical Exam Vital Signs: Vital Signs: Last Vital Signs Temp 98.3 F 01/06/24 10:54 Pulse 75 01/06/24 10:54 Resp 18 01/06/24 10:54 BP 123/46 L 01/06/24 10:54 Pulse Ox 93 01/06/24 10:54 O2 Del Method Room Air 01/06/24 10:54 BMI result Body Mass Index 33.3 VITAL SIGNS: Reviewed. GENERAL: Elevated BMI, Well developed, well nourished, in no acute distress. HEAD: Normocephalic/atraumatic EYES: PERRLA, EOMI EARS: Ext canals without abnormality NOSE: Nares patent bilateral OROPHARYNX: no oral lesions noted, posterior pharynx clear NECK: Supple, no adenopathy LUNGS: Normal breath sounds. No adventitious sounds or accessory muscle use. SpO2<93> CARDIOVASCULAR: Regular rate and rhythm without noted murmurs ABDOMEN: Soft, non-tender, non-distended with bowel sounds. PELVIS: Stable but pain noted at left lateral hip MUSCULOSKELETAL: No tenderness, deformities, or effusions noted on gross inspection. EXTREMITIES: No cyanosis, clubbing or edema. LEFT LOWER EXTREMITY: There is internal rotation, knee appears to be in good alignment without gross tenderness to palpation, no ecchymosis/abrasion/laceration. Otherwise, neurovascularly intact SKIN: Inspection of the skin reveals no rashes NEUROLOGIC: Alert and oriented x 4. Strength and sensation to light touch were grossly intact x 4. Medical Decision Making Medical Decision Making MDM Narrative: 83-year-old female with history and clinical presentation, DDX: Left hip fracture/dislocation, musculoskeletal pain. 1230: Radiology called me over to the department and patient has obvious spiral fracture of the distal left femur, once again neurovascular is intact, will proceed with preop workup. 1249: I notified Dr. Reaves 1250: I discussed the case with inpatient hospitalist who accepts admission. I reviewed all investigations and there is no leukocytosis and there is a stable normocytic anemia no thrombocytopenia. Patient is afebrile and has taken all medications to include antibiotics at home. Coagulation studies are reflective of current use of chronic anticoagulation. Chemistry in his cc not demonstrate CECILIA or electrolyte derangements and she has a chronic elevation of transaminases. Urinalysis is pending. Chest x-ray negative for infiltrate or venous congestion otherwise my interpretation is in agreement with radiology's impression. Hip/pelvis/knee x-rays are significant for comminuted spiral fracture of left distal femur. Both inpatient hospitalist and Dr. Reaves, orthopedics, are aware of patient and she is otherwise admitted. Differential Diagnosis Differential Diagnoses: The differential diagnosis associated with the presentation includes Please see the discussion above Admission/Observation Consideration of admission/observation: Escalation of care including admission/observation considered Please see the discussion above Consult Healthcare Provider Management of the patient was discussed with: Hospitalist and Bottom Loader Please see the discussion above Lab Data MDM Lab Attestation statement: I reviewed the patient's lab results. Please see the discussion above 01/06/24 13:41 01/06/24 13:41 Labs: Lab Results 01/06/24 Range/Units 13:41 WBC 5.6 (4.8-10.8) X10*3/uL RBC 3.04 L (4.20-5.50) X10*6/uL Hgb 9.6 L (12.0-16.0) g/dl Hct 28.9 L (37.0-47.0) % MCV 95.1 (80.0-98.0) fL MCH 31.6 (27.0-33.0) pg MCHC 33.2 (31.0-35.0) g/dl RDW 13.6 (11.0-16.0) % Plt Count 179 (160-400) X10*3/uL MPV 11.0 (9.4-12.3) fL Immature Gran % (Auto) 0.5 H (0.0-0.4) % Neut % (Auto) 75.0 H (45-73) % Lymph % (Auto) 12.2 L (20-40) % [place] % (Auto) 6.2 (2-11) % Eos % (Auto) 5.9 H (0-4) % Baso % (Auto) 0.2 (0-2) % Lymph # (Auto) 0.7 L (1.2-4.9) X10*3/uL [place] # (Auto) 0.4 (0.1-1.2) X10*3/uL Eos # (Auto) 0.3 (0.0-0.4) X10*3/uL Baso # (Auto) 0.0 (0.0-0.2) X10*3/uL Abs Immat Gran (auto) 0.03 (0.00-0.03) X10*3/uL Absolute Neuts (auto) 4.2 (2.0-8.3) x10*3/uL Absolute Nucleated RBC 0.000 (0.0-0.012) X10*3/uL Nucleated RBC % (auto) 0.0 (0.0-0.2) /100WBC PT 15.1 H (11.1-13.3) SEC INR 1.2 H (0.9-1.1) Sodium 138 (135-145) mmol/L Potassium 4.3 (3.3-5.1) mmol/L Chloride 104 (96-108) mmol/L Carbon Dioxide 28 (22-29) mmol/L Anion Gap 10 L (12-20) BUN 29 H (9-16) mg/dL Creatinine 0.74 (0.5-1.4) mg/dL Estim Creat Clear Calc 64.1 Estimated GFR > 60 Random Glucose 112 (60-115) mg/dL Calcium 9.0 (8.4-10.2) mg/dL Total Bilirubin 0.7 (0.0-1.0) mg/dL AST 43 H (5-31) U/L ALT 116 H (0-31) U/L Alkaline Phosphatase 112 (39-117) U/L Total Protein 6.0 L (6.5-8.0) g/dL Albumin 3.0 L (3.5-5.0) g/dL Radiology Impression Discussion of test interpretation with radiology: I have reviewed the radiologist's reading. Radiologist Impression: Please see the discussion above External Record Review External record reviewed: Outpatient record, Prior outpatient labs and Prior outpatient radiology Chronic Conditions Patient?s care impacted by: Hypertension and Other Chronic anticoagulation Critical Care Time Critical Care Time Critical Care Time: Yes Total Critical Care Time: 60 Attestation: I personally attest to this time spent taking care of the patient. Discharge Plan Discharge Clinical Impression: Fall, Comminuted fracture of shaft of femur Patient Disposition: Admitted As Inpatient Prescriptions: No Action atorvastatin 10 mg tablet 10 mg PO BEDTIME lisinopril 10 mg tablet 10 mg PO DAILY gabapentin 100 mg capsule 100 mg PO TID metoprolol succinate 25 mg tablet extended release 24 hr 25 mg PO DAILY memantine 5 mg tablet 5 mg PO BID cholecalciferol (vitamin D3) 25 mcg (1,000 unit) tablet 25 mcg PO DAILY ferrous sulfate 324 mg (65 mg iron) tablet,delayed release (DR/EC) 324 mg PO DAILY Myrbetriq 50 mg tablet extended release 24 hr 50 mg PO DAILY Eliquis 5 mg tablet 5 mg PO BID magnesium oxide 400 mg magnesium Tablet 400 mg PO DAILY multivitamin Tablet 1 tab PO DAILY acetaminophen 325 mg Tablet 325 mg PO QID PRN (Reason: Pain)
--- NOTE | 2024-01-06 12:52 | ECG_ITS ---
Test Reason : PRE-OP Blood Pressure : / mmHG Vent. Rate : 080 BPM Atrial Rate : 080 BPM P-R Int : 174 ms QRS Dur : 084 ms QT Int : 390 ms P-R-T Axes : 076 034 044 degrees QTc Int : 449 ms Normal sinus rhythm Normal ECG When compared with ECG of 14-AUG-2023 16:11, Premature supraventricular complexes are no longer Present Nonspecific T wave abnormality no longer evident in Lateral leads Referred By: Victorina Lino Electronically Signed By:TERELL BRANNON MD
--- NOTE | 2024-01-06 13:45 | PHA.MEDREC ---
Addendum entered by Catrachita Josue [facility] 01/06/24 13:58: Patient had claim history for citalopram 10mg but per TEACHER AIDE she has not started taking it yet Original Note: Pharmacy Consult ? Medication Reconciliation Pharmacy has completed the medication reconciliation. Confirmed medications with patients TEACHER AIDE. TEACHER AIDE reports yhat patient was started on nitrofurantoin last week but stopped because she was having an allergic reaction.
[2024-01-06 13:49] LABS: MANUAL DIFF FLAG NO
[2024-01-06 13:50] LABS: Basophils Percent Auto 0.2 % (0-2); Eosinophils Absolute Auto 0.3 X10*3/uL (0.0-0.4); Eosinophils Percent Auto 5.9 % (0-4); Hematocrit 28.9 % (37.0-47.0); Hemoglobin 9.6 g/dl (12.0-16.0); Imm Gran Abs Auto 0.03 X10*3/uL (0.00-0.03); Imm Gran Pct Auto 0.5 % (0.0-0.4); Lymphocytes Absolute Auto 0.7 X10*3/uL (1.2-4.9); Lymphocytes Percent Auto 12.2 % (20-40); Mean Corpuscular HGB Conc 33.2 g/dl (31.0-35.0); Mean Corpuscular Hemoglobin 31.6 pg (27.0-33.0); Mean Corpuscular Volume 95.1 fL (80.0-98.0); Monocytes Absolute Auto 0.4 X10*3/uL (0.1-1.2); Monocytes Percent Auto 6.2 % (2-11); Neutrophils Absolute Auto 4.2 x10*3/uL (2.0-8.3); Platelet Count 179 X10*3/uL (160-400); Red Blood Count 3.04 X10*6/uL (4.20-5.50); Red Cell Distribution Width 13.6 % (11.0-16.0); White Blood Count 5.6 X10*3/uL (4.8-10.8)
--- NOTE | 2024-01-06 13:54 | PM.IMHP ---
History of Present Illness Date of Service: 01/06/24 Chief Complaint: Fall 83 year old women with multiple medical problems admitted with hip fracture. She had a fall at home after trying to use the bathroom. She has an aide that helps her at home and she was holding onto some grab bars and the aide let her go to pull a commode under her but she fell to the ground and may have fallen between the commode and a radiator. It did not appear that she had any visible injury but Hip xray showed comminuted spiral fracture distal left femur with lateral displacement and slight varus angulation. Her son was able to help her up, patient reports that this happened on Saturday. Patient denies chest pain, shortness for breath, nausea, vomiting, diarrhea, fever, chills, recent travel, sick contacts. Labs all within acceptable limits, vital signs are stable. Patient received a dose of Hydrea ER. She will be admitted for further management and treatment of acute femur fracture. Review of Systems Review of Systems: Denies any recent fever chills or decrease in appetite respiratory denies any shortness of breath or cough cardiovascular denied any chest pain gastrointestinal denies any dysphagia abdominal pain nausea vomiting or diarrhea genitourinary denies any dysuria frequency or hematuria musculoskeletal see HPI neuropsych denies any weakness or seizures all other systems reviewed are negative [facility] Medical History (Updated 01/06/24 @ 16:03 by Frieda Beasley NP) Paroxysmal atrial fibrillation Peripheral neuropathy TIA (transient ischemic attack) PAD (peripheral artery disease) Foot drop Carotid artery stenosis Afib Hyperlipidemia Anemia Hypertension Surgical History (Updated 01/06/24 @ 16:03 by Frieda Beasley NP) H/O foot surgery History of bilateral knee replacement H/O tubal ligation History of cholecystectomy H/O endarterectomy Social History Alcohol intake: former Patient Tobacco Use Status: Never used Tobacco Smoked in Last 30 Days: No Use of substances other than those prescribed or required for medical reasons: No Advance Directives: No Advance Directives Information Provided: No Meds Allergies Allergy/AdvReac Type Severity Reaction Status Date / Time gentamicin [GENTAMICIN] Allergy Intermediate SWELLING Unverified 06/23/20 15:08 sulfamethoxazole Allergy Intermediate RASH Unverified 06/23/20 15:08 [From BACTRIM] trimethoprim [From BACTRIM] Allergy Intermediate RASH Unverified 06/23/20 15:08 acetaminophen [Tylenol] Allergy Unknown Verified 10/20/14 00:00 ibuprofen [Advil] Allergy Unknown Verified 10/20/14 00:00 naproxen [NAPROXEN] AdvReac Mild UNKNOWN Unverified 06/23/20 15:08 Imodium Advanced Allergy Unknown Uncoded 10/20/14 00:00 Home Medications Medication Instructions Recorded Confirmed Last Taken Type acetaminophen 325 mg tablet 325 mg PO QID PRN Pain 01/06/24 01/06/24 Unknown History apixaban 5 mg tablet (Eliquis) 5 mg PO BID 01/06/24 01/06/24 01/06/24 History atorvastatin 10 mg tablet 10 mg PO BEDTIME 01/06/24 01/06/24 01/05/24 History cholecalciferol (vitamin D3) 25 25 mcg PO DAILY 01/06/24 01/06/24 01/06/24 History mcg (1,000 unit) tablet ferrous sulfate 324 mg (65 mg 324 mg PO DAILY 01/06/24 01/06/24 01/06/24 History iron) tablet,delayed release gabapentin 100 mg capsule 100 mg PO TID 01/06/24 01/06/24 01/06/24 History lisinopril 10 mg tablet 10 mg PO DAILY 01/06/24 01/06/24 01/06/24 History magnesium oxide 400 mg PO DAILY 01/06/24 01/06/24 01/06/24 History memantine 5 mg tablet 5 mg PO BID 01/06/24 01/06/24 01/06/24 History metoprolol succinate 25 mg 25 mg PO DAILY 01/06/24 01/06/24 01/06/24 History tablet,extended release 24 hr mirabegron 50 mg tablet,extended 50 mg PO DAILY 01/06/24 01/06/24 01/06/24 History release 24 hr (Myrbetriq) multivitamin 1 tab PO DAILY 01/06/24 01/06/24 01/06/24 History Physical Exam Vital Signs and Narrative: Vital Signs: Last Vital Signs Temp 98.3 F 01/06/24 10:54 Pulse 75 01/06/24 10:54 Resp 18 01/06/24 10:54 BP 123/46 L 01/06/24 10:54 Pulse Ox 93 01/06/24 10:54 O2 Del Method Room Air 01/06/24 10:54 BMI result Body Mass Index 33.3 Appearing in no acute distress head is normocephalic atraumatic eyes pupils are PERRLA sclera is anicteric mouth throat mucous membranes are intact and moist neck is supple no lymphadenopathy, no JVD noted lung sounds are clear to auscultation heart regular rate rhythm, clear S1, S2 positive bowel sounds, abdomen is soft, nontender neuro patient is alert x3, no focal deficits Results Labs 01/06/24 13:41 01/06/24 13:41 Labs: Laboratory Results - last 24 hr 01/06/24 13:41 MCV 95.1 MCH 31.6 MCHC 33.2 RDW 13.6 Plt Count 179 MPV 11.0 Immature Gran % (Auto) 0.5 H Neut % (Auto) 75.0 H Lymph % (Auto) 12.2 L [place] % (Auto) 6.2 Eos % (Auto) 5.9 H Baso % (Auto) 0.2 Lymph # (Auto) 0.7 L [place] # (Auto) 0.4 Eos # (Auto) 0.3 Baso # (Auto) 0.0 Abs Immat Gran (auto) 0.03 Absolute Neuts (auto) 4.2 Absolute Nucleated RBC 0.000 Nucleated RBC % (auto) 0.0 Assessment and Plan (1) Comminuted fracture of shaft of femur: Status: Acute Plan 83 year old woman with multiple medical problems admitted with left femur fracture after fall at home. Left femur fracture Orthopedic consultation with plan for surgical intervention tomorrow NPO after midnight Pain management History of atrial fibrillation, paroxysmal Continue metoprolol, Eliquis on hold for upcoming surgery History of PAD Hold statin for now History of peripheral neuropathy, likely secondary to peripheral arterial disease Continue gabapentin Hypertension Stable blood pressure Continue lisinopril Normocytic anemia On iron supplementation at home History of early dementia. Unspecified Continue memantine DVT prophylaxis with pneumatic compression boots Patient required least 48-72 hours for treatment of left femur fracture requiring surgical intervention and close monitoring, due to patient's age and other comorbidities she is high risk for decompensation. Quality Stroke Does the patient have a stroke diagnosis?: No VTE Prior VTE?: No VTE Risk Level:: Medical - moderate - high VTE Device Contraindication: N/A - Device Ordered VTE Drug Contraindication: Treatment Not Indicated
[2024-01-06 13:55] LABS: INTERNATIONAL NORM RATIO 1.2 (0.9-1.1); Prothrombin Time 15.1 SEC (11.1-13.3)
[2024-01-06 14:08] LABS: Alanine Aminotransferase 116 U/L (0-31); Alkaline Phosphatase 112 U/L (39-117); Anion Gap 10 (12-20); Aspartate Amino Transferase 43 U/L (5-31); Bilirubin Total 0.7 mg/dL (0.0-1.0); Blood Urea Nitrogen 29 mg/dL (9-16); Carbon Dioxide 28 mmol/L (22-29); Chloride 104 mmol/L (96-108); Creatinine Clr Calc Pharmacy 64.1; Estimated Glomerular Filt Rate > 60; Glucose Random 112 mg/dL (60-115); Potassium 4.3 mmol/L (3.3-5.1); Sodium 138 mmol/L (135-145)
--- NOTE | 2024-01-06 14:15 | PC.NURSE ---
Per patient call josh for all medical decisions at [phone] or [phone]
[2024-01-06 14:25] LABS: Appearance Urine Clear; Color Urine Yellow; Glucose Urine UA Negative (Negative); Leukocyte Esterase Urine Trace (Negative); Nitrite Urine Negative (Negative); PH 7.5 (5.0-9.0); Specific Gravity - Urine 1.015 (1.005-1.025); UMIC TRIGGER UACC YES; Urine Blood Negative (Negative); Urine Ketones Negative (Negative); Urine Protein Trace mg/dL (Neg-Trace)
[2024-01-06 14:38] LABS: Bacteria Urine None Seen (None Seen); Hyaline Casts Urine 0-2 /LPF (0-2); RBC Urine 0-2 /HPF (0-2); Squamous Epithelial Cell Urine 0-2 /HPF (0-2); WBC Urine 0-5 /HPF (0-5)
[2024-01-06 14:48] VITALS: BP 120/26; PULSE 79; RESP 20; O2SAT 94
--- NOTE | 2024-01-06 14:57 | P.CONOP_ITS ---
History of Present Illness HPI Consult date: 01/06/24 Chief complaint: L LEG PAIN S/P FALL T-1 PER EMS Narrative: 83-year-old female on chronic anticoagulation who sustained a mild fall on Saturday afternoon, she is only able to transition from chair to bed, she is nonambulatory and has complaints of left hip and knee pain. She denies any head strike and her son as well as healthcare aide at the bedside confirmed that patient did not hit her head and there was no loss consciousness. She has a PMH significant for hypertension, atrial fibrillation on Eliquis, and hyperlipidemia. She is mainly wheelchair bound put does stand for transfers. Review of Systems 2 Review of Systems: Yes all other systems are reviewed and are negative [facility] Social History Social History Alcohol intake: former Patient Tobacco Use Status: Never used Tobacco Smoked in Last 30 Days: No Use of substances other than those prescribed or required for medical reasons: No Advance Directives: No Advance Directives Information Provided: No Meds Allergies Allergy/AdvReac Type Severity Reaction Status Date / Time gentamicin [GENTAMICIN] Allergy Intermediate SWELLING Unverified 06/23/20 15:08 sulfamethoxazole Allergy Intermediate RASH Unverified 06/23/20 15:08 [From BACTRIM] trimethoprim [From BACTRIM] Allergy Intermediate RASH Unverified 06/23/20 15:08 acetaminophen [Tylenol] Allergy Unknown Verified 10/20/14 00:00 ibuprofen [Advil] Allergy Unknown Verified 10/20/14 00:00 naproxen [NAPROXEN] AdvReac Mild UNKNOWN Unverified 06/23/20 15:08 Imodium Advanced Allergy Unknown Uncoded 10/20/14 00:00 Home Medications Medication Instructions Recorded Confirmed Last Taken Type acetaminophen 325 mg tablet 325 mg PO QID PRN Pain 01/06/24 01/06/24 Unknown History apixaban 5 mg tablet (Eliquis) 5 mg PO BID 01/06/24 01/06/24 01/06/24 History atorvastatin 10 mg tablet 10 mg PO BEDTIME 01/06/24 01/06/24 01/05/24 History cholecalciferol (vitamin D3) 25 25 mcg PO DAILY 01/06/24 01/06/24 01/06/24 History mcg (1,000 unit) tablet ferrous sulfate 324 mg (65 mg 324 mg PO DAILY 01/06/24 01/06/24 01/06/24 History iron) tablet,delayed release gabapentin 100 mg capsule 100 mg PO TID 01/06/24 01/06/24 01/06/24 History lisinopril 10 mg tablet 10 mg PO DAILY 01/06/24 01/06/24 01/06/24 History magnesium oxide 400 mg PO DAILY 01/06/24 01/06/24 01/06/24 History memantine 5 mg tablet 5 mg PO BID 01/06/24 01/06/24 01/06/24 History metoprolol succinate 25 mg 25 mg PO DAILY 01/06/24 01/06/24 01/06/24 History tablet,extended release 24 hr mirabegron 50 mg tablet,extended 50 mg PO DAILY 01/06/24 01/06/24 01/06/24 History release 24 hr (Myrbetriq) multivitamin 1 tab PO DAILY 01/06/24 01/06/24 01/06/24 History Physical Exam 2 Vital Signs: Vital Signs: Last Vital Signs Temp 98.3 F 01/06/24 10:54 Pulse 79 01/06/24 14:48 Resp 20 01/06/24 14:48 BP 120/26 L 01/06/24 14:48 Pulse Ox 94 01/06/24 14:48 O2 Del Method Room Air 01/06/24 14:48 BMI result Body Mass Index 33.3 Const: General: cooperative, healthy appearing and no acute distress Resp: Effort & Inspection: normal respiratory effort and able to speak in complete sentences Cardio: Rate: regular rate Peripheral pulses: Peripheral pulses 2+ throughout GI: Palpation (GI): Soft to palpation Skin: Lesions: no lesions Rashes: no rashes Extrem: Other: Left thigh tender to palpation and reports pain with any attempts of motion. Compartments are soft. History of left drop foot from prior foot surgery. Pedal pulse intact. Results Labs 01/06/24 13:41 01/06/24 13:41 Labs: Abnormal lab results 01/06/24 01/06/24 Range/Units 13:41 14:17 RBC 3.04 L (4.20-5.50) X10*6/uL Hgb 9.6 L (12.0-16.0) g/dl Hct 28.9 L (37.0-47.0) % Immature Gran % (Auto) 0.5 H (0.0-0.4) % Neut % (Auto) 75.0 H (45-73) % Lymph % (Auto) 12.2 L (20-40) % Eos % (Auto) 5.9 H (0-4) % Lymph # (Auto) 0.7 L (1.2-4.9) X10*3/uL PT 15.1 H (11.1-13.3) SEC INR 1.2 H (0.9-1.1) Anion Gap 10 L (12-20) BUN 29 H (9-16) mg/dL AST 43 H (5-31) U/L ALT 116 H (0-31) U/L Total Protein 6.0 L (6.5-8.0) g/dL Albumin 3.0 L (3.5-5.0) g/dL Ur Leukocyte Esterase Trace H (Negative) H & H 01/06/24 Range/Units 13:41 Hgb 9.6 L (12.0-16.0) g/dl Hct 28.9 L (37.0-47.0) % Coagulation 01/06/24 Range/Units 13:41 INR 1.2 H (0.9-1.1) All other labs normal. Assessment and Plan (1) Comminuted fracture of shaft of femur: Status: Acute I discussed the case with Dr. Reaves who was also available to see the patient with me and explained the extent of the injury to the patient and options available which include surgical intervention. I explained the procedure in detail along with the length of recovery and rehab course. I explained the risk, benefits and alternatives. Risk including, but not limited to infection, blood clots, bleeding, non union or malunion and nerve/tissue damage to surrounding areas. I answered all their questions and with their understanding they have consented to move forward with Operative Fixation of the left femur. The patient will be T&S, hold Eliquis, med clearance obtained and NPO after midnight. Procedures Date of Service Date of Service: 01/06/24
[2024-01-06] MEDS: HYDROmorphone HCl 0.5 MG/0.5 ML SYRINGE 0.25 MG IVPUSH (16:16)
[2024-01-06 17:48] VITALS: BP 128/46; PULSE 82; RESP 16; TEMP 36.7; O2SAT 93
[2024-01-06] MEDS: ondansetron HCL 4 MG/2 ML VIAL IVPUSH (21:20)
[2024-01-06] MEDS: Gabapentin 100 MG CAPSULE PO (21:20)
[2024-01-06] MEDS: Memantine HCl 5 MG TABLET PO (21:20)
[2024-01-06 21:27] VITALS: BP 111/38; PULSE 117; RESP 18; O2SAT 92
[2024-01-06 21:35] VITALS: BP 119/39
[2024-01-07] VITALS (9 sets, daily range): BP systolic 95–148; BP diastolic 46–77; PULSE 80–100; RESP 15–18; TEMP 36.4–37.1; O2SAT 90–95
[2024-01-07] MEDS: HYDROmorphone HCl 0.5 MG/0.5 ML SYRINGE IVPUSH ×3 (00:27→18:41)
--- NOTE | 2024-01-07 00:28 | MHC.EDTECH ---
THIS PCT ASSUMED CARE OF PATIENT AT 2300 ,VITALS TAKEN ,PT WAS INCONTINENT OF SMALL AMOUNT OF BOWEL MOVEMENT ,CARE GIVEN ,PT WAS REPOSITION AND BOOSTED UP IN BED ,PATIENT BELONGING LISTED WAS ADJUSTED ,ARIAS CATHETER EMPTY FOR 1000 ML URINE ,CALL HENDRICKSON WITHIN PT REACH .
--- NOTE | 2024-01-07 01:53 | MHC.EDTECH ---
0200 ROUNDING DONE ,VITALS TAKEN ,PT AWAKE ,BUT RESTING IN BED ,RN AWARE OF PATIENT LOW BP .
--- NOTE | 2024-01-07 06:32 | MHC.EDTECH ---
0600 ROUNDING DONE ,VITALS TAKEN ,PT WAS AWAKE ALL NIGHT ,PATIENT IS CLEAN AND WAS REPOSITION IN BED ,ARIAS CATHETER EMPTY ,PATIENT MOUTH WAS SWAB ,CALL [facility] WITHIN PATIENT REACH .
[2024-01-07 06:35] LABS: Hematocrit 28.9 % (37.0-47.0); Hemoglobin 9.4 g/dl (12.0-16.0); Mean Corpuscular HGB Conc 32.5 g/dl (31.0-35.0); Mean Corpuscular Hemoglobin 31.4 pg (27.0-33.0); Mean Corpuscular Volume 96.7 fL (80.0-98.0); Mean Platelet Volume 11.9 fL (9.4-12.3); Platelet Count 181 X10*3/uL (160-400); Red Blood Count 2.99 X10*6/uL (4.20-5.50); Red Cell Distribution Width 13.8 % (11.0-16.0); White Blood Count 5.9 X10*3/uL (4.8-10.8)
[2024-01-07 07:05] LABS: Alanine Aminotransferase 92 U/L (0-31); Albumin Level 3.1 g/dL (3.5-5.0); Alkaline Phosphatase 107 U/L (39-117); Anion Gap 12 (12-20); Aspartate Amino Transferase 28 U/L (5-31); Bilirubin Total 0.6 mg/dL (0.0-1.0); Blood Urea Nitrogen 29 mg/dL (9-16); Calcium 9.2 mg/dL (8.4-10.2); Carbon Dioxide 25 mmol/L (22-29); Chloride 107 mmol/L (96-108); Estimated Glomerular Filt Rate > 60; Glucose Random 107 mg/dL (60-115); Iron 37 mcg/dL (30-160); Percent Iron Saturation 20 % (15-50); Potassium 3.8 mmol/L (3.3-5.1); Sodium 140 mmol/L (135-145); Total Iron Binding Capacity 185 mcg/dL (228-428); Total Protein 6.1 g/dL (6.5-8.0); Unsaturated Iron Binding 148 ug/dL
[2024-01-07 07:33] LABS: Folate 14.1 ng/mL (> or = 4.0); Vitamin B12 650 pg/mL (200-900)
[2024-01-07] MEDS: 0.9 % Sodium Chloride Flush 3 ML SYRINGE IVFLUSH ×3 (08:35→19:37)
--- NOTE | 2024-01-07 09:37 | MHC.CM.PN ---
Addendum entered by Amie Loredo RN 01/08/24 13:42: Late entry - CM met with son Horacio 01/07 afternoon. Provided updates on referrals - IsaBenjamínkavin MejiaPapillion reviewing, clinically accepted at [facility] and [facility]. Son is aware patient will have PT eval day after surgery and CM will update facilities at that time. Verbalized understanding. Original Note: VEHICLE MONITOR TECHNICIAN COMPLETED WITH PATIENT AT BEDSIDE AND SON HORACIO VIA TELEPHONE. IMM DELIVERED. PATIENT IS FROM HOME W/ SON HORACIO AND GAS PIT WORKER'S. GAS PIT WORKER HOURS ARE 8A-3P, 5P-9P DAILY. SON IS HOME OVERNIGHT. GAS PIT WORKER'S ASSIST W/ ALL ADL'S AND TRANSFERS. PATIENT IS PRIMARILY IN W/C AND CAN USUALLY STAND/PIVOT TO BED OR COMMODE W/ 1 ASSIST. USES [facility] PRN. SON REPORTS HE HAS REMODELED PATIENT'S BEDROOM AND BATHROOM FOR ACCESSIBILITY. ALSO HAS HOSPITAL BED. SON ORDERS ALL MEALS, PREPARED FROM [employer]. POWER BACK PROVIDES PT/OT 2X WEEKLY. PCP CHANA MEZA MD SON REPORTS HE IS HCP. COPY REQUESTED. SON WILL FAX. DP: PLAN FOR HIP FX REPAIR IN OR TODAY. WILL LIKELY NEED STR. CHOICES ARE 1) [facility] 2) [facility] 3)[facility]. REFERRALS IN PLACE. CM WILL CONTINUE TO FOLLOW.
--- NOTE | 2024-01-07 11:23 | P.PNIM_ITS ---
Subjective Subjective Date of Service: 01/07/24 Review of Systems Follow up fall, femur fx pain controlled at this time some confusion/hospital delirium Physical Exam 2 Vital Signs: Vital Signs: Last Vital Signs Temp 97.9 F 01/07/24 09:46 Pulse 100 01/07/24 09:46 Resp 17 01/07/24 09:46 BP 143/65 H 01/07/24 09:46 Pulse Ox 95 01/07/24 09:46 O2 Del Method Room Air 01/07/24 09:46 BMI result Body Mass Index 33.3 Appearing in no acute distress lung sounds are clear to auscultation heart regular rate rhythm, clear S1, S2 positive bowel sounds, abdomen is soft, nontender neuro patient is alert x3, no focal deficits Objective Data Active Medications Gabapentin (Gabapentin 100 Mg Capsule) 100 mg PO TID [facility] Last Admin: 01/06/24 21:20 Dose: 100 mg Documented By: LUCA Hydromorphone HCl (Hydromorphone Hcl 0.5 Mg/0.5 Ml Syringe) 0.5 mg IVPUSH Q4H PRN; Protocol PRN Reason: Pain, Moderate(Pain Scale 4-6) Last Admin: 01/07/24 07:17 Dose: 0.5 mg Documented By: JOSSUE Cefazolin Sodium/Dextrose (Ancef) 2 gm in 50 mls @ 100 mls/hr IV PREOP ONE Stop: 01/08/24 09:12 Lisinopril (Lisinopril 10 Mg Tablet) 10 mg PO DAILY [facility]; Protocol Magnesium Oxide (Magnesium Oxide 400 Mg Tablet) 400 mg PO DAILY [facility] Memantine (Memantine Hcl 5 Mg Tablet) 5 mg PO BID [facility] Last Admin: 01/06/24 21:20 Dose: 5 mg Documented By: LUCA Metoprolol Succinate (Metoprolol Succinate Er 25 Mg Tab.Er.24h) 25 mg PO DAILY [facility]; Protocol Mirabegron (Mirabegron 50 Mg Tab.Er.24h) 50 mg PO DAILY [facility] Multivitamins/Vitamin C (Multivitamin Tablet) 1 tab PO DAILY [facility] Ondansetron HCl (Ondansetron Hcl 4 Mg/2 Ml Vial) 4 mg IVPUSH Q8H PRN PRN Reason: Nausea and Vomiting Last Admin: 01/06/24 21:20 Dose: 4 mg Documented By: LUCA Sodium Chloride (0.9 % Sodium Chloride Flush 3 Ml Syringe) [facility] Last Admin: 01/07/24 08:35 Dose: 3 ml Documented By: ARTURO Sodium Chloride (0.9 % Sodium Chloride Flush 3 Ml Syringe) [facility] Last Admin: 01/07/24 08:35 Dose: Not Given Documented By: ARTURO Non-Admin Reason: Duplicate Order Vitamin D (Cholecalciferol (Vitamin D3) 25 Mcg Tablet) 25 mcg PO DAILY [facility] Labs 01/07/24 05:28 01/07/24 05:28 Labs: Laboratory Results - last 24 hr 01/06/24 01/06/24 01/06/24 13:41 14:08 14:17 MCV 95.1 MCH 31.6 MCHC 33.2 RDW 13.6 Plt Count 179 MPV 11.0 Immature Gran % (Auto) 0.5 H Neut % (Auto) 75.0 H Lymph % (Auto) 12.2 L [place] % (Auto) 6.2 Eos % (Auto) 5.9 H Baso % (Auto) 0.2 Lymph # (Auto) 0.7 L [place] # (Auto) 0.4 Eos # (Auto) 0.3 Baso # (Auto) 0.0 Abs Immat Gran (auto) 0.03 Absolute Neuts (auto) 4.2 Absolute Nucleated RBC 0.000 Nucleated RBC % (auto) 0.0 PT 15.1 H INR 1.2 H Anion Gap 10 L Estim Creat Clear Calc 64.1 Estimated GFR > 60 Random Glucose 112 Calcium 9.0 Iron TIBC % Saturation Unsat Iron Binding Total Bilirubin 0.7 AST 43 H ALT 116 H Alkaline Phosphatase 112 Total Protein 6.0 L Albumin 3.0 L Vitamin B12 Folate Urine Color Yellow Urine Appearance Clear Urine pH 7.5 Ur Specific [place] 1.015 Urine Protein Trace Urine Glucose (UA) Negative Urine Ketones Negative Urine Blood Negative Urine Nitrite Negative Ur Leukocyte Esterase Trace H Urine RBC 0-2 Urine WBC 0-5 Ur Squamous Epith Cells 0-2 Urine Bacteria None Seen Hyaline Casts 0-2 Blood Type A Positive Antibody Screen NEGATIVE 01/07/24 05:28 MCV 96.7 MCH 31.4 MCHC 32.5 RDW 13.8 Plt Count 181 MPV 11.9 Immature Gran % (Auto) Neut % (Auto) Lymph % (Auto) [place] % (Auto) Eos % (Auto) Baso % (Auto) Lymph # (Auto) [place] # (Auto) Eos # (Auto) Baso # (Auto) Abs Immat Gran (auto) Absolute Neuts (auto) Absolute Nucleated RBC 0.000 Nucleated RBC % (auto) 0.0 PT INR Anion Gap 12 Estim Creat Clear Calc 74.0 Estimated GFR > 60 Random Glucose 107 Calcium 9.2 Iron 37 TIBC 185 L % Saturation 20 Unsat Iron Binding 148 Total Bilirubin 0.6 AST 28 ALT 92 H Alkaline Phosphatase 107 Total Protein 6.1 L Albumin 3.1 L Vitamin B12 650 Folate 14.1 Urine Color Urine Appearance Urine pH Ur Specific [place] Urine Protein Urine Glucose (UA) Urine Ketones Urine Blood Urine Nitrite Ur Leukocyte Esterase Urine RBC Urine WBC Ur Squamous Epith Cells Urine Bacteria Hyaline Casts Blood Type Antibody Screen Assessment and Plan (1) Comminuted fracture of shaft of femur: Status: Acute Plan 83 year old woman with multiple medical problems admitted with left femur fracture after fall at home. Left femur fracture pain management NPO after midnight Orthopedic consultation with plan for surgical intervention tomorrow History of atrial fibrillation, paroxysmal Continue metoprolol, Eliquis on hold for upcoming surgery History of PAD Hold statin for now History of peripheral neuropathy, likely secondary to peripheral arterial disease Continue gabapentin Hypertension Stable blood pressure Continue lisinopril Normocytic anemia On iron supplementation at home History of early dementia. Unspecified Continue memantine DVT prophylaxis with pneumatic compression boots Attending Dr. Santana continue hospital stay for treatment of left femur fracture requiring surgical intervention and close monitoring, due to patient's age and other comorbidities she is high risk for decompensation. Quality Stroke Does the patient have a stroke diagnosis?: No VTE Prior VTE?: No VTE Risk Level:: Medical - moderate - high VTE Device Contraindication: N/A - Device Ordered VTE Drug Contraindication: Treatment Not Indicated
[2024-01-07] MEDS: Memantine HCl 5 MG TABLET PO (19:45)
[2024-01-07] MEDS: Gabapentin 100 MG CAPSULE PO (19:45)
--- NOTE | 2024-01-07 23:16 | PC.NURSE ---
Assumed care of patient at 19:00 this evening. Pt is A&Ox1 to self only and has a hx of dementia per chart review. Reoriented and frequent redirection and reassurance provided. In-room camera remains in place. Lungs are clear/dim in the bases. Pt was on room air on assuming care with spo2 90% on evening vitals, also confirmed by script writer. Pt in no apparent distress. Resting in bed appearing comfortable on interaction and assessment. Breathing observed even and unlabored without distress. No cough noted. Pt was placed on 2L nc with spo2 improved to 95%. Active o2 order in place. Covering Dr. Adams notified. Handoff report given to oncoming RN at 23:15.
[2024-01-08] VITALS (11 sets, daily range): BP systolic 107–164; BP diastolic 53–80; PULSE 78–90; RESP 15–18; TEMP 36.1–37.4; O2SAT 93–99
[2024-01-08] MEDS: HYDROmorphone HCl 0.5 MG/0.5 ML SYRINGE IVPUSH ×3 (05:48→12:51)
[2024-01-08] MEDS: 0.9 % Sodium Chloride Flush 3 ML SYRINGE IVFLUSH ×2 (08:18→20:33)
[2024-01-08] MEDS: Metoprolol Succinate ER 25 MG TAB.ER.24H PO (08:19)
[2024-01-08] MEDS: oxyCODONE HCl Immed Release 5 MG TABLET PO ×3 (08:59→19:13)
--- NOTE | 2024-01-08 09:58 | HO.PM.IMPN ---
Subjective Subjective Date of Service: 01/08/24 Review of Systems Follow up fall, femur fx some confusion/hospital delirium Physical Exam Vital Signs: Vital Signs: Last Vital Signs Temp 98.6 F 01/08/24 07:53 Pulse 83 01/08/24 07:53 Resp 18 01/08/24 07:53 BP 143/69 H 01/08/24 07:53 Pulse Ox 95 01/08/24 07:53 O2 Del Method Nasal Cannula 01/08/24 07:53 O2 Flow Rate 2.0 01/08/24 07:53 BMI result Body Mass Index 33.3 Appearing in no acute distress lung sounds are clear to auscultation heart regular rate rhythm, clear S1, S2 positive bowel sounds, abdomen is soft, nontender neuro patient is alert x3, no focal deficits Objective Data Active Medications Gabapentin (Gabapentin 100 Mg Capsule) 100 mg PO TID [facility] Last Admin: 01/08/24 08:20 Dose: Not Given Documented By: CLEMENCIA Non-Admin Reason: NPO Hydromorphone HCl (Hydromorphone Hcl 0.5 Mg/0.5 Ml Syringe) 0.5 mg IVPUSH Q3H PRN; Protocol PRN Reason: Pain, Moderate(Pain Scale 4-6) Last Admin: 01/08/24 09:31 Dose: 0.5 mg Documented By: CLEMENCIA Lisinopril (Lisinopril 10 Mg Tablet) 10 mg PO DAILY [facility]; Protocol Last Admin: 01/08/24 08:19 Dose: Not Given Documented By: CLEMENCIA Non-Admin Reason: NPO Magnesium Oxide (Magnesium Oxide 400 Mg Tablet) 400 mg PO DAILY [facility] [place] Last Admin: 01/08/24 08:19 Dose: Not Given Documented By: CLEMENCIA Non-Admin Reason: NPO Memantine (Memantine Hcl 5 Mg Tablet) 5 mg PO BID [facility] [place] Last Admin: 01/08/24 08:20 Dose: Not Given Documented By: CLEMENCIA Non-Admin Reason: NPO Metoprolol Succinate (Metoprolol Succinate Er 25 Mg Tab.Er.24h) 25 mg PO DAILY [facility] [place]; Protocol Last Admin: 01/08/24 08:19 Dose: 25 mg Documented By: CLEMENCIA Mirabegron (Mirabegron 50 Mg Tab.Er.24h) 50 mg PO DAILY [facility] [place] Last Admin: 01/08/24 08:20 Dose: Not Given Documented By: CLEMENCIA Non-Admin Reason: NPO Multivitamins/Vitamin C (Multivitamin Tablet) 1 tab PO DAILY [facility] [place] Last Admin: 01/08/24 08:20 Dose: Not Given Documented By: CLEMENCIA Non-Admin Reason: NPO Ondansetron HCl (Ondansetron Hcl 4 Mg/2 Ml Vial) 4 mg IVPUSH Q8H PRN PRN Reason: Nausea and Vomiting Last Admin: 01/06/24 21:20 Dose: 4 mg Documented By: LUCA Oxycodone HCl (Oxycodone Hcl Immed Release 5 Mg Tablet) 5 mg PO Q4H PRN PRN Reason: Pain, Moderate(Pain Scale 4-6) Last Admin: 01/08/24 08:59 Dose: 5 mg Documented By: CLEMENCIA Sodium Chloride (0.9 % Sodium Chloride Flush 3 Ml Syringe) 3 ml IVFLUSH QSHIFT [facility] Last Admin: 01/08/24 08:18 Dose: 3 ml Documented By: CLEMENCIA Sodium Chloride (0.9 % Sodium Chloride Flush 3 Ml Syringe) [facility] Last Admin: 01/08/24 08:18 Dose: Not Given Documented By: CLEMENCIA Non-Admin Reason: Duplicate Order Vitamin D (Cholecalciferol (Vitamin D3) 25 Mcg Tablet) 25 mcg PO DAILY [facility] Last Admin: 01/08/24 08:19 Dose: Not Given Documented By: CLEMENCIA Non-Admin Reason: NPO Labs 01/07/24 05:28 01/07/24 05:28 Assessment and Plan (1) Comminuted fracture of shaft of femur: Status: Acute Plan 83 year old woman with multiple medical problems admitted with left femur fracture after fall at home. Left femur fracture pain management> titrate up as pt having increased pain with movements NPO Orthopedic consultation> OR today History of atrial fibrillation, paroxysmal Continue metoprolol, Eliquis on hold for upcoming surgery History of PAD Hold statin for now History of peripheral neuropathy, likely secondary to peripheral arterial disease Continue gabapentin Hypertension Stable blood pressure Continue lisinopril Normocytic anemia On iron supplementation at home History of early dementia. Unspecified Continue memantine DVT prophylaxis with pneumatic compression boots Attending Dr. Santana continue hospital stay for treatment of left femur fracture requiring surgical intervention and close monitoring, due to patient's age and other comorbidities she is high risk for decompensation. Quality Stroke Does the patient have a stroke diagnosis?: No VTE Prior VTE?: No VTE Risk Level:: Medical - moderate - high VTE Device Contraindication: N/A - Device Ordered VTE Drug Contraindication: Treatment Not Indicated
--- NOTE | 2024-01-08 12:57 | MHC.CM.PN ---
EMR reviewed. Patient to OR today. Not medically cleared for dc. CM will continue to follow and dc plan pending PT eval.
--- NOTE | 2024-01-08 15:21 | MHC.SHP ---
Pre-Procedural Eval Section A - 24 Hr Update-Section A only Date of Service: 01/08/24 The patient is an INPATIENT: Yes Changes since office visit: No Cold of Flu in the past 2 weeks, No New Medical Problems, No Changes in Medication and No Patient answered all questions The patient has been examined within 24 hours of the surgical procedure. The History & Physical has been completed within 30 days and I have reviewed it.: Yes Section B - Complete if H&P > 30 days Chief Complaint: Fall,Hip Fracture Allergies: Allergies Allergy/AdvReac Type Severity Reaction Status Date / Time gentamicin [GENTAMICIN] Allergy Intermediate SWELLING Verified 01/08/24 14:40 sulfamethoxazole Allergy Intermediate RASH Verified 01/08/24 14:40 [From BACTRIM] trimethoprim [From BACTRIM] Allergy Intermediate RASH Verified 01/08/24 14:40 acetaminophen [Tylenol] Allergy Unknown Unknown Verified 01/08/24 14:40 ibuprofen [Advil] Allergy Unknown Unknown Verified 01/08/24 14:40 naproxen [NAPROXEN] AdvReac Mild UNKNOWN Verified 01/08/24 14:40 Imodium Advanced Allergy Unknown Unknown Uncoded 01/08/24 14:40 Plan I have reviewed the history and physical and performed a pertinent physical examination on my patient. No changes have occurred unless specified. Time Spent With Patient Time: Total time managing care of this patient today ____ minutes.
--- NOTE | 2024-01-08 15:24 | HO.ANESPROP2 ---
HPI - Anesthesia Eval Consult details Narrative: Left Femur Fracture s/ fall PMFSH Active Problems Active Problems: All Active Problems (Updated 01/06/24 @ 16:03 by Frieda Beasley NP) Comminuted fracture of shaft of femur (Acute) Fall (Acute) Past Medical History Medical History Paroxysmal atrial fibrillation Peripheral neuropathy TIA (transient ischemic attack) PAD (peripheral artery disease) Foot drop Carotid artery stenosis Afib Hyperlipidemia Anemia Hypertension Family History Family history of problems with anesthesia: No Surgical History Surgical History H/O foot surgery History of bilateral knee replacement H/O tubal ligation History of cholecystectomy H/O endarterectomy History of Problems with Anesthesia: No Social History Social History Household Members: Children Housing: House Do you presently have 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 If so, by whom?: No Do you feel safe in your current relationship?: No Current Relationship Is there a partner from a previous relationship who is making you feel unsafe now?: No Are you made to feel afraid or neglected: No Are you DNR?: No Advance Directives: No Advance Directives Information Provided: No Do you have thoughts of harming others: None Do you have a plan to hurt others: No Plan Recently lost weight without trying: No Nutrition Risks: No Nutritional Risk Patient : No service: No Meds Allergies Allergy/AdvReac Type Severity Reaction Status Date / Time gentamicin [GENTAMICIN] Allergy Intermediate SWELLING Verified 01/08/24 14:40 sulfamethoxazole Allergy Intermediate RASH Verified 01/08/24 14:40 [From BACTRIM] trimethoprim [From BACTRIM] Allergy Intermediate RASH Verified 01/08/24 14:40 acetaminophen [Tylenol] Allergy Unknown Unknown Verified 01/08/24 14:40 ibuprofen [Advil] Allergy Unknown Unknown Verified 01/08/24 14:40 naproxen [NAPROXEN] AdvReac Mild UNKNOWN Verified 01/08/24 14:40 Imodium Advanced Allergy Unknown Unknown Uncoded 01/08/24 14:40 Active Medications: Current Medications Gabapentin (Gabapentin 100 Mg Capsule) 100 mg PO TID [facility] Last Admin: 01/08/24 14:24 Dose: Not Given Hydromorphone HCl (Hydromorphone Hcl 0.5 Mg/0.5 Ml Syringe) 0.5 mg IVPUSH Q3H PRN; Protocol PRN Reason: Pain, Moderate(Pain Scale 4-6) Last Admin: 01/08/24 12:51 Dose: 0.5 mg Lisinopril (Lisinopril 10 Mg Tablet) 10 mg PO DAILY [facility]; Protocol Last Admin: 01/08/24 08:19 Dose: Not Given Magnesium Oxide (Magnesium Oxide 400 Mg Tablet) 400 mg PO DAILY [facility] Last Admin: 01/08/24 08:19 Dose: Not Given Memantine (Memantine Hcl 5 Mg Tablet) 5 mg PO BID [facility] Last Admin: 01/08/24 08:20 Dose: Not Given Metoprolol Succinate (Metoprolol Succinate Er 25 Mg Tab.Er.24h) 25 mg PO DAILY [facility]; Protocol Last Admin: 01/08/24 08:19 Dose: 25 mg Mirabegron (Mirabegron 50 Mg Tab.Er.24h) 50 mg PO DAILY [facility] Last Admin: 01/08/24 08:20 Dose: Not Given Multivitamins/Vitamin C (Multivitamin Tablet) 1 tab PO DAILY [facility] Last Admin: 01/08/24 08:20 Dose: Not Given Ondansetron HCl (Ondansetron Hcl 4 Mg/2 Ml Vial) 4 mg IVPUSH Q8H PRN PRN Reason: Nausea and Vomiting Last Admin: 01/06/24 21:20 Dose: 4 mg Oxycodone HCl (Oxycodone Hcl Immed Release 5 Mg Tablet) 5 mg PO Q4H PRN PRN Reason: Pain, Moderate(Pain Scale 4-6) Last Admin: 01/08/24 13:23 Dose: 5 mg Sodium Chloride (0.9 % Sodium Chloride Flush 3 Ml Syringe) 3 ml IVFLUSH QSHIFT [facility] Last Admin: 01/08/24 15:12 Dose: Not Given Sodium Chloride (0.9 % Sodium Chloride Flush 3 Ml Syringe) 3 ml IVFLUSH QSHIFT [facility] Last Admin: 01/08/24 15:12 Dose: Not Given Vitamin D (Cholecalciferol (Vitamin D3) 25 Mcg Tablet) 25 mcg PO DAILY [facility] Last Admin: 01/08/24 08:19 Dose: Not Given Home Medications Medication Instructions Recorded Confirmed Last Taken Type acetaminophen 325 mg tablet 325 mg PO QID PRN Pain 01/06/24 01/06/24 Unknown History apixaban 5 mg tablet (Eliquis) 5 mg PO BID 01/06/24 01/06/24 01/06/24 History atorvastatin 10 mg tablet 10 mg PO BEDTIME 01/06/24 01/06/24 01/05/24 History cholecalciferol (vitamin D3) 25 25 mcg PO DAILY 01/06/24 01/06/24 01/06/24 History mcg (1,000 unit) tablet ferrous sulfate 324 mg (65 mg 324 mg PO DAILY 01/06/24 01/06/24 01/06/24 History iron) tablet,delayed release gabapentin 100 mg capsule 100 mg PO TID 01/06/24 01/06/24 01/06/24 History lisinopril 10 mg tablet 10 mg PO DAILY 01/06/24 01/06/24 01/06/24 History magnesium oxide 400 mg PO DAILY 01/06/24 01/06/24 01/06/24 History memantine 5 mg tablet 5 mg PO BID 01/06/24 01/06/24 01/06/24 History metoprolol succinate 25 mg 25 mg PO DAILY 01/06/24 01/06/24 01/06/24 History tablet,extended release 24 hr mirabegron 50 mg tablet,extended 50 mg PO DAILY 01/06/24 01/06/24 01/06/24 History release 24 hr (Myrbetriq) multivitamin 1 tab PO DAILY 01/06/24 01/06/24 01/06/24 History Exam Height,Weight and Vital Signs: Height 5 ft 5 in Weight 90.718 kg Last Vital Signs Temp 99.4 F 01/08/24 15:07 Pulse 84 01/08/24 15:07 Resp 16 01/08/24 15:07 BP 120/57 L 01/08/24 15:07 Pulse Ox 96 01/08/24 15:07 O2 Del Method Nasal Cannula 01/08/24 15:07 O2 Flow Rate 2 01/08/24 15:07 Pertinent Lab Results Pertinent Lab Results: Laboratory Tests 01/06/24 01/06/24 01/06/24 13:41 14:08 14:17 WBC 5.6 RBC 3.04 L Hgb 9.6 L Hct 28.9 L MCV 95.1 MCH 31.6 MCHC 33.2 RDW 13.6 Plt Count 179 MPV 11.0 Immature Gran % (Auto) 0.5 H Neut % (Auto) 75.0 H Lymph % (Auto) 12.2 L [place] % (Auto) 6.2 Eos % (Auto) 5.9 H Baso % (Auto) 0.2 Lymph # (Auto) 0.7 L [place] # (Auto) 0.4 Eos # (Auto) 0.3 Baso # (Auto) 0.0 Abs Immat Gran (auto) 0.03 Absolute Neuts (auto) 4.2 Absolute Nucleated RBC 0.000 Nucleated RBC % (auto) 0.0 PT 15.1 H INR 1.2 H Sodium 138 Potassium 4.3 Chloride 104 Carbon Dioxide 28 Anion Gap 10 L BUN 29 H Creatinine 0.74 Estim Creat Clear Calc 64.1 Estimated GFR > 60 Random Glucose 112 Calcium 9.0 Iron TIBC % Saturation Unsat Iron Binding Total Bilirubin 0.7 AST 43 H ALT 116 H Alkaline Phosphatase 112 Total Protein 6.0 L Albumin 3.0 L Vitamin B12 Folate Urine Color Yellow Urine Appearance Clear Urine pH 7.5 Ur Specific [place] 1.015 Urine Protein Trace Urine Glucose (UA) Negative Urine Ketones Negative Urine Blood Negative Urine Nitrite Negative Ur Leukocyte Esterase Trace H Urine RBC 0-2 Urine WBC 0-5 Ur Squamous Epith Cells 0-2 Urine Bacteria None Seen Hyaline Casts 0-2 Blood Type A Positive Antibody Screen NEGATIVE Crossmatch See Detail 01/07/24 05:28 WBC 5.9 RBC 2.99 L Hgb 9.4 L Hct 28.9 L MCV 96.7 MCH 31.4 MCHC 32.5 RDW 13.8 Plt Count 181 MPV 11.9 Immature Gran % (Auto) Neut % (Auto) Lymph % (Auto) [place] % (Auto) Eos % (Auto) Baso % (Auto) Lymph # (Auto) [place] # (Auto) Eos # (Auto) Baso # (Auto) Abs Immat Gran (auto) Absolute Neuts (auto) Absolute Nucleated RBC 0.000 Nucleated RBC % (auto) 0.0 PT INR Sodium 140 Potassium 3.8 Chloride 107 Carbon Dioxide 25 Anion Gap 12 BUN 29 H Creatinine 0.64 Estim Creat Clear Calc 74.0 Estimated GFR > 60 Random Glucose 107 Calcium 9.2 Iron 37 TIBC 185 L % Saturation 20 Unsat Iron Binding 148 Total Bilirubin 0.6 AST 28 ALT 92 H Alkaline Phosphatase 107 Total Protein 6.1 L Albumin 3.1 L Vitamin B12 650 Folate 14.1 Urine Color Urine Appearance Urine pH Ur Specific [place] Urine Protein Urine Glucose (UA) Urine Ketones Urine Blood Urine Nitrite Ur Leukocyte Esterase Urine RBC Urine WBC Ur Squamous Epith Cells Urine Bacteria Hyaline Casts Blood Type Antibody Screen Crossmatch Airway Mallampati Class: II TM Dist: >3cm Neck ROM: Full Loose/Missing/Broken Teeth: Yes (upper teeth missing) Heart: [id number] Lungs: cta b/k Assessment and Plan Assessment Anesthesia Assessment: Anesthesia Plan Discussed Final Anesthetic Review Family History of Problems with Anesthesia: No History of Problems with Anesthesia: No NPO: Yes ASA Class: III and Emergency Final Preanesthetic Review: No Changes in Pt Med Stat, Meds/Allgs Chart Reviewed, Consent Obtained/Reviewed and Anes Risks/Benef Reviewed Patient Risk: Intermediate Procedure Risk: Intermediate Assessment/Block/Sedation in SS: Assess/Block/Sedation-SS Anesthetic Plan Anesthetic Plan: GA Disposition: Standard PACU
--- NOTE | 2024-01-08 17:40 | PM.OP ---
Brief Operative Note Date of Service: 01/08/24 Pre-op diagnosis: Left distal femur periprosthetic fracture Post-op diagnosis: same Procedure: Retrograde IMN left femur Implants: Styrker [id number] IMN Surgeon: Amor Reaves MD Anesthesia: GETA Was an Soapstoner used for this Procedure?: Yes Soapstoner: Cally Foley Estimated blood loss (mL): 250 IV fluids (mL): 1,100 Pathology: none sent Condition: stable Disposition: PACU
[2024-01-08 18:38] LABS: Hematocrit 28.4 % (37.0-47.0); Hemoglobin 9.1 g/dl (12.0-16.0)
[2024-01-08 18:47] LABS: Anion Gap 13 (12-20); Blood Urea Nitrogen 17 mg/dL (9-16); Calcium 8.8 mg/dL (8.4-10.2); Carbon Dioxide 23 mmol/L (22-29); Chloride 110 mmol/L (96-108); Creatinine Clr Calc Pharmacy 77.7; Estimated Glomerular Filt Rate > 60; Glucose Random 104 mg/dL (60-115); Sodium 142 mmol/L (135-145)
[2024-01-08] MEDS: Memantine HCl 5 MG TABLET PO (19:13)
[2024-01-08] MEDS: Gabapentin 100 MG CAPSULE PO (19:13)
[2024-01-08] MEDS: ceFAZolin Sodium/Dextrose,Iso 2 GM/50 ML PIGGYBACK IV (20:33)
--- NOTE | 2024-01-08 23:49 | PC.NURSE ---
Pt's postop H&H is 9.1/28.4, 2 units of blood ordered preop. I was told from the previous nurse that blood was ordered for her in case she lost more than 750 ml during surgery, faxed report stated that she only lost 250 ml. [place] text to SHARON Briggs to ask if I should hang blood, she stated that it seems ok but to check with the hospitalist. Worthington text sent to Dr. Magdaleno who asked me to check with Phuc Baker from Anesthesia who ordered the blood. [place] text to Phuc Baker, he stated no blood at this time. I placed a call to the blood bank to let them know we would not need the blood at this time. Will continue to monitor.
[2024-01-09] VITALS (10 sets, daily range): BP systolic 88–140; BP diastolic 50–70; PULSE 79–89; RESP 18–20; TEMP 36.2–37.3; O2SAT 83–96
[2024-01-09] MEDS: oxyCODONE HCl Immed Release 5 MG TABLET PO ×3 (05:30→17:16)
[2024-01-09] MEDS: Cholecalciferol (Vitamin D3) 25 MCG TABLET PO (08:14)
[2024-01-09] MEDS: Metoprolol Succinate ER 25 MG TAB.ER.24H PO (08:14)
[2024-01-09] MEDS: Multivitamin TABLET 1 TAB PO (08:14)
[2024-01-09] MEDS: Gabapentin 100 MG CAPSULE PO ×3 (08:14→19:56)
[2024-01-09] MEDS: Memantine HCl 5 MG TABLET PO ×2 (08:14→19:56)
[2024-01-09] MEDS: Magnesium Oxide 400 MG TABLET PO (08:14)
[2024-01-09] MEDS: lisinopriL 10 MG TABLET PO (08:14)
[2024-01-09] MEDS: Mirabegron 50 MG TAB.ER.24H PO (08:14)
[2024-01-09] MEDS: 0.9 % Sodium Chloride Flush 3 ML SYRINGE IVFLUSH (08:15)
[2024-01-09 09:14] LABS: Hematocrit 24.5 % (37.0-47.0); Hematocrit 24.6 % (37.0-47.0); Hemoglobin 8.1 g/dl (12.0-16.0); Mean Corpuscular HGB Conc 32.9 g/dl (31.0-35.0); Mean Corpuscular Hemoglobin 32.3 pg (27.0-33.0); Mean Platelet Volume 11.3 fL (9.4-12.3); NRBC Pct Auto 0.2 /100WBC (0.0-0.2); Platelet Count 215 X10*3/uL (160-400); Red Blood Count 2.51 X10*6/uL (4.20-5.50); Red Cell Distribution Width 13.3 % (11.0-16.0); White Blood Count 10.1 X10*3/uL (4.8-10.8)
--- NOTE | 2024-01-09 09:24 | HO.POSTANES ---
Post Anesthesia Evaluation Post Anesthesia Evaluation Date of Service: 01/09/24 Vital Signs: Vital Signs Temp Pulse Resp BP Pulse Ox O2 Del Method O2 Flow Rate 01/09/24 07:45 97.6 F 86 18 119/59 L 94 Nasal Cannula 2 01/09/24 04:00 97.2 F 79 18 131/60 93 Room Air 01/08/24 23:00 97.0 F 83 18 120/58 L 95 Room Air Anesthesia: General Mental Status: Awake Pain Control: Satisfactory (6/10) Nausea/Vomiting: None Hydration: Adequate Anesthesia-Related Issues: No Anes. Related Issues
--- NOTE | 2024-01-09 10:20 | PM.PNORT ---
Subjective Subjective Date of Service: 01/09/24 Interval history: POD 1 s/p Left retrograde nail no overnight events resting in bed denies sob, cp, palpitations Physical Exam Vital Signs: Vital Signs: Last Vital Signs Temp 97.6 F 01/09/24 07:45 Pulse 86 01/09/24 07:45 Resp 18 01/09/24 07:45 BP 119/59 L 01/09/24 07:45 Pulse Ox 94 01/09/24 07:45 O2 Del Method Nasal Cannula 01/09/24 07:45 O2 Flow Rate 2 01/09/24 07:45 BMI result Body Mass Index 33.3 Const: General: cooperative, healthy appearing and no acute distress Resp: Effort & Inspection: normal respiratory effort and able to speak in complete sentences Cardio: Rate: regular rate Peripheral pulses: Peripheral pulses 2+ throughout GI: Palpation (GI): Soft to palpation Skin: General skin exam: no rashes or lesions noted Extrem: Other: left knee incision c/d/i. No erythema, mild swelling. NVI. Procedures Date of Service Date of Service: 01/09/24 Progress Note: A&P Assessment and plan (1) Comminuted fracture of shaft of femur: Status: Acute Assessment and Plan: Pain mgmnt PT/OT - 50% wb with walker lovenox x48 hrs then resume eliquis DC once cleared by PT and medicine Time Spent With Patient Time: Total time managing care of this patient today ____ minutes. Quality Stroke Does the patient have a stroke diagnosis?: No VTE Prior VTE?: No VTE Risk Level:: Medical - moderate - high VTE Device Contraindication: N/A - Device Ordered VTE Drug Contraindication: Treatment Not Indicated
[2024-01-09] MEDS: Enoxaparin Sodium 40 MG/0.4 ML SYRINGE SUBCUT (10:45)
[2024-01-09] MEDS: 0.9 % Sodium Chloride 250 ML 500 ML IV (12:17)
--- NOTE | 2024-01-09 13:09 | MHC.CM.PN ---
PT eval complete w/ rec for [facility]. [facility]. CM spoke with daughter/first HCP Yenni and updated on acceptance to [facility]. Not medically cleared at this time, potentially tomorrow, daughter aware. CM will continue to follow.
--- NOTE | 2024-01-09 13:53 | HO.PM.IMPN ---
Subjective Subjective Date of Service: 01/09/24 Interval History: Seen and examined this morning Follow-up for femur fracture status post repair Appears somewhat confused Had episode of hypotension this afternoon, asymptomatic Review of Systems Review of Systems: Yes all other systems are reviewed and are negative Cardiovascular Cardiovascular: Denies chest pain Gastrointestinal Gastrointestinal: Denies abdominal pain Neurologic Neurologic: Reports confusion Psychiatric Psychiatric: Reports confusion Physical Exam Vital Signs: Vital Signs: Last Vital Signs Temp 97.9 F 01/09/24 12:00 Pulse 81 01/09/24 12:00 Resp 18 01/09/24 12:00 BP 88/50 L 01/09/24 12:00 Pulse Ox 96 01/09/24 12:00 O2 Del Method Nasal Cannula 01/09/24 12:00 O2 Flow Rate 2 01/09/24 12:00 BMI result Body Mass Index 33.3 Const: General: cooperative, comfortable, no acute distress, alert, awake and confusion Orientation/consciousness: confusion Resp: Effort & Inspection: normal respiratory effort, able to speak in complete sentences, no respiratory distress and no use of accessory muscles Cardio: Rate: regular rate GI: Inspection: No distended Palpation (GI): Soft to palpation and nontender Neuro: Other: grossly nonfocal General: confusion Extrem: General: Yes no pedal edema Objective Data Active Medications Enoxaparin Sodium (Enoxaparin Sodium 40 Mg/0.4 Ml Syringe) 40 mg SUBCUT Q24H [facility] Stop: 01/10/24 10:31 Last Admin: 01/09/24 10:45 Dose: 40 mg Documented By: LEEANNE Gabapentin (Gabapentin 100 Mg Capsule) 100 mg PO TID [facility] Last Admin: 01/09/24 08:14 Dose: 100 mg Documented By: LEEANNE Hydromorphone HCl (Hydromorphone Hcl 0.5 Mg/0.5 Ml Syringe) 0.5 mg IVPUSH Q3H PRN; Protocol PRN Reason: Pain, Moderate(Pain Scale 4-6) Last Admin: 01/08/24 12:51 Dose: 0.5 mg Documented By: WALI Cefazolin Sodium/Dextrose (Ancef) 2 gm in 50 mls @ 100 mls/hr IV POSTOP [facility] Last Infusion: 01/08/24 21:12 Dose: Infused Documented By: BONITA Lisinopril (Lisinopril 10 Mg Tablet) 10 mg PO DAILY [facility]; Protocol Last Admin: 01/09/24 08:14 Dose: 10 mg Documented By: LEEANNE Magnesium Oxide (Magnesium Oxide 400 Mg Tablet) 400 mg PO DAILY [facility] Last Admin: 01/09/24 08:14 Dose: 400 mg Documented By: LEEANNE Memantine (Memantine Hcl 5 Mg Tablet) 5 mg PO BID [facility] Last Admin: 01/09/24 08:14 Dose: 5 mg Documented By: LEEANNE Metoprolol Succinate (Metoprolol Succinate Er 25 Mg Tab.Er.24h) 25 mg PO DAILY [facility]; Protocol Last Admin: 01/09/24 08:14 Dose: 25 mg Documented By: LEEANNE Mirabegron (Mirabegron 50 Mg Tab.Er.24h) 50 mg PO DAILY [facility] Last Admin: 01/09/24 08:14 Dose: 50 mg Documented By: LEEANNE Multivitamins/Vitamin C (Multivitamin Tablet) 1 tab PO DAILY [facility] Last Admin: 01/09/24 08:14 Dose: 1 tab Documented By: LEEANNE Ondansetron HCl (Ondansetron Hcl 4 Mg/2 Ml Vial) 4 mg IVPUSH Q8H PRN PRN Reason: Nausea and Vomiting Last Admin: 01/06/24 21:20 Dose: 4 mg Documented By: LUCA Oxycodone HCl (Oxycodone Hcl Immed Release 5 Mg Tablet) 5 mg PO Q4H PRN PRN Reason: Pain, Moderate(Pain Scale 4-6) Last Admin: 01/09/24 10:45 Dose: 5 mg Documented By: LEEANNE Sodium Chloride (0.9 % Sodium Chloride Flush 3 Ml Syringe) [facility] Last Admin: 01/09/24 08:15 Dose: 3 ml Documented By: LEEANNE Vitamin D (Cholecalciferol (Vitamin D3) 25 Mcg Tablet) 25 mcg PO DAILY [facility] Last Admin: 01/09/24 08:14 Dose: 25 mcg Documented By: LEEANNE Labs 01/09/24 08:48 01/08/24 18:30 Labs: Laboratory Results - last 24 hr 01/06/24 01/08/24 01/09/24 14:08 18:30 08:48 MCV 98.0 MCH 32.3 MCHC 32.9 RDW 13.3 Plt Count 215 MPV 11.3 Absolute Nucleated RBC 0.020 H Nucleated RBC % (auto) 0.2 Anion Gap 13 Estim Creat Clear Calc 77.7 Estimated GFR > 60 Random Glucose 104 Calcium 8.8 Blood Type A Positive Antibody Screen NEGATIVE Crossmatch See Detail Assessment and Plan (1) Comminuted fracture of shaft of femur: Status: Acute Plan This is an 83 year old woman with multiple medical problems admitted with left femur fracture after fall at home. Left femur fracture secondary to mechanical fall POD1 s/p left retrograde nail - ortho following lovenox x 48 hours, then resume baseline dose of eliquis hypotension pt asymptomatic will give IVF and follow BP hold metoprolol, lisinopril for now Monitor blood pressure closely History of atrial fibrillation, paroxysmal Eliquis on hold, resume after 48 hours as above Hold metoprolol as above History of PAD Hold statin for now History of peripheral neuropathy, likely secondary to peripheral arterial disease Continue gabapentin Hypertension BP low hold metoprolol, lisinopril due to low BP as above Normocytic anemia On iron supplementation at home, can resume upon discharge follow CBC History of early dementia. Unspecified Continue memantine DVT prophylaxis- lovenox Attending Dr. Santana dispo - PT rec STR continue hospital stay for treatment of left femur fracture requiring surgical intervention and close monitoring, due to patient's age and other comorbidities she is high risk for decompensation. Quality Stroke Does the patient have a stroke diagnosis?: No VTE Prior VTE?: No VTE Risk Level:: Medical - moderate - high VTE Device Contraindication: N/A - Device Ordered VTE Drug Contraindication: Treatment Not Indicated
[2024-01-09] MEDS: Lactated Ringers 1,000 ML 80 ML IVCONT (14:04)
--- NOTE | 2024-01-09 14:48 | HO.WOUND ---
Wound Consult: Initial 83yr old Female admitted to [facility] on 01/06/24 - See progress notes and H&P for detailed history.? Wound consult placed for Left Leg redness - last week discussed with direct care nurse no open wounds noted - today was to confirm and followup.? Patient agreeable to assessment and photo documentation.? Arrival to bedside - left leg is zeb wrapped by surgical team and no wound noted - dressing not removed at this time. Discussed with direct care nurse reports no known wound on either leg at this time. Right lower leg assessed for pink intact dry tissue. Not consistent with pressure or moisture. Patient and son at bedside report patient often has redness to bilateral lower legs and denies open wounds. The pigmentation changes are consistent with venous dermatitis including thin fragile tissue. no topical wound care orders needed at this time. May apply lotions twice daily to keep tissue supple and decrease risk of injury. Re-consult wound care Nurse for wound deterioration or wound changes.
--- NOTE | 2024-01-09 20:45 | PC.NURSE ---
Addendum entered by Crystal Jaramillo RN 01/09/24 21:58: IV bolus ordered,labs pending,will monitor ,no need to str cath patient at this time per Rasta joe Original Note: [place] was d/c at 1100,patient has not voided since,bladder scan shows 0 ml,patient denies discomfort,Dr. Magdaleno notified
[2024-01-09] MEDS: Lactated Ringers 500 ML 166 ML IV (22:04)
[2024-01-09 22:47] LABS: Mean Corpuscular HGB Conc 32.9 g/dl (31.0-35.0); Mean Corpuscular Hemoglobin 32.1 pg (27.0-33.0); Mean Corpuscular Volume 97.7 fL (80.0-98.0); Mean Platelet Volume 10.9 fL (9.4-12.3); NRBC Pct Auto 0.6 /100WBC (0.0-0.2); Platelet Count 206 X10*3/uL (160-400); Red Blood Count 2.15 X10*6/uL (4.20-5.50); Red Cell Distribution Width 13.8 % (11.0-16.0)
[2024-01-09 22:51] LABS: Hemoglobin 6.9 g/dl (12.0-16.0)
[2024-01-09 22:59] LABS: Anion Gap 12 (12-20); Blood Urea Nitrogen 37 mg/dL (9-16); Calcium 8.2 mg/dL (8.4-10.2); Carbon Dioxide 26 mmol/L (22-29); Chloride 105 mmol/L (96-108); Estimated Glomerular Filt Rate 58; Glucose Random 107 mg/dL (60-115); Potassium 4.2 mmol/L (3.3-5.1); Sodium 139 mmol/L (135-145)
[2024-01-10] VITALS (14 sets, daily range): BP systolic 96–128; BP diastolic 42–66; PULSE 79–91; RESP 18; TEMP 36–36.9; O2SAT 93–97
[2024-01-10] MEDS: 0.9 % Sodium Chloride Flush 3 ML SYRINGE IVFLUSH ×2 (01:17→16:46)
[2024-01-10] MEDS: HYDROmorphone HCl 0.5 MG/0.5 ML SYRINGE IVPUSH (05:07)
--- NOTE | 2024-01-10 06:06 | PM.EVENT ---
Event Note Date of Service: 01/10/24 Event Note: 8:44 PM - contacted to notify patient has not voided since 11:00 AM. Bladder scan done and showed 0 mL of residual urine. LR 500 mL over 3 hours ordered. Chart reviewed. H&H noted to be trending. Had an episode of hypotension during the day. H&H stat was obtained. H&H dropped to 6.9& 21.0. Blood consent was obtained and 2 units of PRBCs ordered. Time Spent With Patient Time: Total time managing care of this patient today ____ minutes.
--- NOTE | 2024-01-10 06:15 | PC.NURSE ---
ORDERED PREVIOUS SHIFT, 2 UNITS OF PRBC'S FOR A LOW HH OF 6.9 AND 21.0. CONSENT SIGNED AND MD IN TO SEE PATIENT. FIRST UNIT UP AT 0058 VSS, LUNG OREILLY CLEAR AND DIM TO BASES. [id number] 955 ON O2 AT 2 LITERS N/C. BLOOD COMPLETED AT 0426. UNIT 2 UP AT 0526, VSS, INCONTINENCE CARE AND REPOSITIONED. MEDICATED FOR 9/10 PAIN IN BETWEEN AFTER CARE AND REPOSITIONING WITH DILAUDID IVP WITH GOOD EFFECT. NO S/SX ADVERSE REACTIONS TO BLOOD TRANSFUSION AT THIS TIME, 0625. BLOOD INFUSING WITHOUT DIFFICULTIES TO #20 RIGHT FOREARM. WILL CONTINUE TO MONITOR CLOSELY. SEE TAR AND DOCUMENTATION OF VITALS FOR FULL INFORMATION. PT NOTED INCONTINENT OF URINE TIMES 2.
[2024-01-10] MEDS: Mirabegron 50 MG TAB.ER.24H PO (07:33)
[2024-01-10] MEDS: Memantine HCl 5 MG TABLET PO ×2 (07:33→19:23)
[2024-01-10] MEDS: Gabapentin 100 MG CAPSULE PO ×3 (07:33→19:23)
[2024-01-10] MEDS: Multivitamin TABLET 1 TAB PO (07:33)
[2024-01-10] MEDS: Cholecalciferol (Vitamin D3) 25 MCG TABLET PO (07:33)
[2024-01-10] MEDS: Magnesium Oxide 400 MG TABLET PO (07:33)
[2024-01-10] MEDS: oxyCODONE HCl Immed Release 5 MG TABLET PO ×2 (07:33→10:24)
--- NOTE | 2024-01-10 07:59 | PM.PNORT ---
Subjective Subjective Date of Service: 01/10/24 Interval history: POD 2 s/p Left retrograde nail no overnight events resting in bed denies sob, cp, palpitations Physical Exam Vital Signs: Vital Signs: Last Vital Signs Temp 97.8 F 01/10/24 07:32 Pulse 80 01/10/24 07:32 Resp 18 01/10/24 07:32 BP 110/51 L 01/10/24 07:32 Pulse Ox 97 01/10/24 07:32 O2 Del Method Nasal Cannula 01/10/24 07:32 O2 Flow Rate 2 01/10/24 07:32 BMI result Body Mass Index 33.3 Const: General: cooperative, healthy appearing and no acute distress Resp: Effort & Inspection: normal respiratory effort and able to speak in complete sentences Cardio: Rate: regular rate Peripheral pulses: Peripheral pulses 2+ throughout GI: Palpation (GI): Soft to palpation Skin: General skin exam: no rashes or lesions noted Extrem: Other: left knee and upper thigh incisions are c/d/i. No erythema, mild swelling. NVI. Procedures Date of Service Date of Service: 01/10/24 Progress Note: A&P Assessment and plan (1) Comminuted fracture of shaft of femur: Status: Acute Assessment and Plan: Pain mgmnt PT/OT - 50% wb with walker lovenox x48 hrs then resume eliquis DC once cleared by PT and medicine Time Spent With Patient Time: Total time managing care of this patient today ____ minutes. Quality Stroke Does the patient have a stroke diagnosis?: No VTE Prior VTE?: No VTE Risk Level:: Medical - moderate - high VTE Device Contraindication: N/A - Device Ordered VTE Drug Contraindication: Treatment Not Indicated
[2024-01-10] MEDS: Enoxaparin Sodium 40 MG/0.4 ML SYRINGE SUBCUT (08:46)
[2024-01-10 09:34] LABS: Hematocrit 27.8 % (37.0-47.0); Hemoglobin 9.2 g/dl (12.0-16.0); Mean Corpuscular HGB Conc 33.1 g/dl (31.0-35.0); Mean Corpuscular Hemoglobin 31.9 pg (27.0-33.0); Mean Corpuscular Volume 96.5 fL (80.0-98.0); Mean Platelet Volume 10.8 fL (9.4-12.3); NRBC Pct Auto 0.6 /100WBC (0.0-0.2); Platelet Count 175 X10*3/uL (160-400); Red Blood Count 2.88 X10*6/uL (4.20-5.50); White Blood Count 10.8 X10*3/uL (4.8-10.8)
--- NOTE | 2024-01-10 12:58 | MHC.CM.PN ---
Addendum entered by Nitza Palmer 01/10/24 14:55: PT BOOKED TO DC TO [facility] TOMORROW [facility]IA [facility] AT [address] PT [address] GO TO [facility] ROOM 106 THE NUMBER FOR NURSES REPORT IS [phone] CM CALLED PTS HCP/DAUGHTER, SMITA WILKERSON [phone] SHE IS AWARE OF DC TIME/PLAN SHE WILL BRING PT CLOTHES/SHOES TO THE STR PTS MEDICARE RIGHTS WERE REVIEWED, COPY AT BEDSIDE. Original Note: PER HOSPITALIST, PT EXPECTED TO BE READY TO DC TOMORROW MESSAGE LEFT FOR [facility] TO DETERMINE IF A TIME COULD BE BOOKED TODAY DCP: [facility] FOR STR
--- NOTE | 2024-01-10 13:28 | HO.WOUND ---
Wound Consult: Initial 83yr old?Female admitted to [facility] on? 01/06/24 - See progress notes and H&P for detailed history.? Wound consult placed for Left Heel pressure injury.? Patient agreeable to assessment and photo documentation.? Left Heel Etiology: ?Deep Tissue Injury -?Present on Admission Measurements: see charting for detailed measurements Wound Bed: intact dark purple nonblanchable tissue Drainage / Odor: None Edges: ? irregular Estelle wound: ?red erythema slow to schuyler - ? No Induration, Fluctuance noted Pain: Patient reports pain and tenderness throughout her body Goals of Treatment: ? Foam to protect from friction and heel protector boot applied Recommendations: 1. Turn and Reposition every 2 hours and as needed for patient comfort.? Use pillows or wedges to support off loading positions. 2. Off Load all bony prominences with use of pillows and heel boots if needed.? Apply Preventative foams where needed. ? 3. Monitor for incontinence and moisture control, use barrier creams when needed for prevention and treatment. 4. Provide adequate and supplemental nutrition.? 5. Order or Continue low air loss mattress. 6. When applicable maintain blood glucose levels per Providers order. 7. ?Left Heel ? Apply Foam dressing peel back and assess Q shift, change every 3 days.? Apply heel protector boot to keep off of bed surface. Re-consult wound care Nurse for wound deterioration or wound changes.
--- NOTE | 2024-01-10 13:29 | HO.WOUND ---
Wound Consult: Initial 83yr old?Female admitted to [facility] [place] 01/06/24 - See progress notes and H&P for detailed history.? Wound consult placed for Left Heel pressure injury.? Patient agreeable to assessment and photo documentation.? Left Heel Etiology: ?Deep Tissue Injury Measurements: see charting for detailed measurements Wound Bed: intact dark purple nonblanchable tissue Drainage / Odor: None Edges: ? irregular Estelle wound: ?red erythema slow to schuyler - ? No Induration, Fluctuance noted Pain: Patient reports pain and tenderness throughout her body Goals of Treatment: ? Foam to protect from friction and heel protector boot applied Recommendations: 1. Turn and Reposition every 2 hours and as needed for patient comfort.? Use pillows or wedges to support off loading positions. 2. Off Load all bony prominences with use of pillows and heel boots if needed.? Apply Preventative foams where needed. ? 3. Monitor for incontinence and moisture control, use barrier creams when needed for prevention and treatment. 4. Provide adequate and supplemental nutrition.? 5. Order or Continue low air loss mattress. 6. When applicable maintain blood glucose levels per Providers order. 7. ?Left Heel ? Apply Foam dressing peel back and assess Q shift, change every 3 days.? Apply heel protector boot to keep off of bed surface. Re-consult wound care Nurse for wound deterioration or wound changes.
--- NOTE | 2024-01-10 13:59 | HO.PM.IMPN ---
Subjective Subjective Date of Service: 01/10/24 Interval History: Seen and examined this morning Follow-up for left femur fracture status post IM nail H/H trending down and requiring blood transfusion overnight Patient denies dizziness, chest pain, shortness on breath Review of Systems Review of Systems: Yes all other systems are reviewed and are negative Constitutional Constitutional: Denies chills and Denies fever(s) Cardiovascular Cardiovascular: Denies chest pain and Denies dyspnea Respiratory Respiratory: Denies dyspnea Gastrointestinal Gastrointestinal: Denies abdominal pain Physical Exam Vital Signs: Vital Signs: Last Vital Signs Temp 96.8 F 01/10/24 12:00 Pulse 87 01/10/24 12:00 Resp 18 01/10/24 12:00 BP 120/66 01/10/24 12:00 Pulse Ox 93 01/10/24 12:00 O2 Del Method Nasal Cannula 01/10/24 12:00 O2 Flow Rate 2 01/10/24 12:00 BMI result Body Mass Index 33.3 Const: General: cooperative, comfortable, no acute distress, alert and awake Orientation/consciousness: patient oriented x3 Resp: Effort & Inspection: normal respiratory effort, able to speak in complete sentences, no respiratory distress and no use of accessory muscles Auscultation: clear to auscultation bilaterally Cardio: Rate: regular rate GI: Inspection: No distended Palpation (GI): Soft to palpation and nontender Neuro: Other: grossly nonfocal General: patient oriented x3 Extrem: General: Yes no pedal edema Objective Data Active Medications Gabapentin (Gabapentin 100 Mg Capsule) 100 mg PO TID [facility] Last Admin: 01/10/24 07:33 Dose: 100 mg Documented By: CLEMENCIA Hydromorphone HCl (Hydromorphone Hcl 0.5 Mg/0.5 Ml Syringe) 0.25 mg IVPUSH Q3H PRN; Protocol PRN Reason: Pain, Severe (Pain Scale 7-10) Cefazolin Sodium/Dextrose (Ancef) 2 gm in 50 mls @ 100 mls/hr IV POSTOP [facility] Last Infusion: 01/08/24 21:12 Dose: Infused Documented By: BONITA Lisinopril (Lisinopril 10 Mg Tablet) 10 mg PO DAILY [facility]; Protocol Last Admin: 01/09/24 08:14 Dose: 10 mg Documented By: LEEANNE Magnesium Oxide (Magnesium Oxide 400 Mg Tablet) 400 mg PO DAILY [facility] Last Admin: 01/10/24 07:33 Dose: 400 mg Documented By: CLEMENCIA Memantine (Memantine Hcl 5 Mg Tablet) 5 mg PO BID [facility] Last Admin: 01/10/24 07:33 Dose: 5 mg Documented By: CLEMENCIA Metoprolol Succinate (Metoprolol Succinate Er 25 Mg Tab.Er.24h) 25 mg PO DAILY [facility]; Protocol Last Admin: 01/09/24 08:14 Dose: 25 mg Documented By: LEEANNE Mirabegron (Mirabegron 50 Mg Tab.Er.24h) 50 mg PO DAILY [facility] Last Admin: 01/10/24 07:33 Dose: 50 mg Documented By: CLEMENCIA Multivitamins/Vitamin C (Multivitamin Tablet) 1 tab PO DAILY [facility] Last Admin: 01/10/24 07:33 Dose: 1 tab Documented By: CLEMENCIA Ondansetron HCl (Ondansetron Hcl 4 Mg/2 Ml Vial) 4 mg IVPUSH Q8H PRN PRN Reason: Nausea and Vomiting Last Admin: 01/06/24 21:20 Dose: 4 mg Documented By: LUCA Oxycodone HCl (Oxycodone Hcl Immed Release 5 Mg Tablet) 5 mg PO Q6H PRN PRN Reason: Pain, Moderate(Pain Scale 4-6) Last Admin: 01/10/24 07:33 Dose: 5 mg Documented By: CLEMENCIA Sodium Chloride (0.9 % Sodium Chloride Flush 3 Ml Syringe) 3 ml IVFLUSH QSHIFT [facility] Last Admin: 01/10/24 07:33 Dose: Not Given Documented By: CLEMENCIA Non-Admin Reason: IV Running Vitamin D (Cholecalciferol (Vitamin D3) 25 Mcg Tablet) 25 mcg PO DAILY [facility] Last Admin: 01/10/24 07:33 Dose: 25 mcg Documented By: CLEMENCIA Labs 01/10/24 09:23 01/09/24 22:36 Labs: Laboratory Results - last 24 hr 01/09/24 01/09/24 01/10/24 22:36 23:07 09:23 MCV 97.7 96.5 MCH 32.1 31.9 MCHC 32.9 33.1 RDW 13.8 14.0 Plt Count 206 175 MPV 10.9 10.8 Absolute Nucleated RBC 0.070 H 0.060 H Nucleated RBC % (auto) 0.6 H 0.6 H Smear Path Review SEE NOTE Anion Gap 12 Estim Creat Clear Calc 51.0 Estimated GFR 58 Random Glucose 107 Calcium 8.2 L D Blood Type A Positive Antibody Screen NEGATIVE Crossmatch See Detail Assessment and Plan (1) Comminuted fracture of shaft of femur: Status: Acute (2) Acute blood loss anemia: Status: Acute Plan This is an 83 year old woman with multiple medical problems admitted with left femur fracture after fall at home s/p left IMN nail, hospital course complicated by acute blood loss anemia and hypotension Left femur fracture secondary to mechanical fall POD2 s/p left retrograde nail - ortho following lovenox x 48 hours, then resume baseline dose of eliquis if H/H remains stable acute blood loss anemia secondary to surgical procedure received 2U blood overnight repeat H/H improved follow am CBC hypotension likely due to above, pt asymptomatic received IVF and blood transfusion; bp improving hold metoprolol, lisinopril for now Monitor blood pressure closely History of atrial fibrillation, paroxysmal to resume eliquis in am if H/H stable Hold metoprolol as above History of PAD Hold statin for now History of peripheral neuropathy, likely secondary to peripheral arterial disease Continue gabapentin Hypertension BP low hold metoprolol, lisinopril due to low BP as above Normocytic anemia On iron supplementation at home, can resume upon discharge follow CBC History of early dementia. Unspecified Continue memantine DVT prophylaxis- lovenox Attending Dr. Santana dispgeorge - PT rec STR continue hospital stay for treatment of left femur fracture requiring surgical intervention and close monitoring, due to patient's age and other comorbidities she is high risk for decompensation. Quality Stroke Does the patient have a stroke diagnosis?: No VTE Prior VTE?: No VTE Risk Level:: Medical - moderate - high VTE Device Contraindication: N/A - Device Ordered VTE Drug Contraindication: Treatment Not Indicated
--- NOTE | 2024-01-10 17:11 | P.OP_ITS ---
Operative Note Operative Note Date of Service: 01/08/24 Narrative: Date of Service: 01/08/24 Pre-op diagnosis: Left distal femur periprosthetic fracture Post-op diagnosis: same Procedure: Retrograde IMN left femur Implants: Styrker [id number] IMN Surgeon: Amor Reaves MD Anesthesia: GETA Was an Hardwood Floor Refinisher used for this Procedure?: Yes Hardwood Floor Refinisher: Cally Foley Estimated blood loss (mL): 250 IV fluids (mL): 1,100 Pathology: none sent Condition: stable Disposition: PACU Patient was brought to the operating room and placed supine on the fracture table. He was prepped and draped in standard sterile fashion and a time out was called to identify proper site, proper procedure and IV antibiotics per weight were administered. I began by flexing the knee up and making a small 1 cm incision between the distal pole of the patella and the tibial tubercle directly midline. Using lateral and AP fluoro I placed the guidewire into the femur through the open box of the femoral prosthesis. I then made a larger incision transpatellar tendon. A tissue retractor was placed and I over-reamed with a 12.5 opening reamer. A ball tipped guidewire was ten placed across the fracture. With the fracture in a reduced position, I was able to pass a 15 reamer up the femoral canal to the level of the lesser without resistance. I then measured and placed a 300x13 mm nail. Using the targeting guide 4 distal screws were placed through the nail. Using perfect [place] technique 1 proximal interlocking screw was placed lateral to medial. Final biplanar fluoro images were obtained and I was satsifed with the reduction and the position of the hardwar. I then closed with absorbable sutures and skin lex. Patient was then placed in sterile dressing and extubated. He was brought to the recovery room in stable condition. There were no known complications.
[2024-01-11] VITALS (8 sets, daily range): BP systolic 105–143; BP diastolic 51–62; PULSE 81–94; RESP 14–24; TEMP 36.1–37.4; O2SAT 92–96
[2024-01-11] MEDS: 0.9 % Sodium Chloride Flush 3 ML SYRINGE IVFLUSH ×3 (00:32→15:30)
[2024-01-11 07:48] LABS: Hemoglobin 8.8 g/dl (12.0-16.0)
[2024-01-11] MEDS: HYDROmorphone HCl 0.5 MG/0.5 ML SYRINGE 0.25 MG IVPUSH ×2 (08:09→12:12)
--- NOTE | 2024-01-11 09:14 | PM.PNORT ---
Subjective Subjective Date of Service: 01/11/24 Interval history: POD 3 s/p Left retrograde nail no overnight events resting in bed denies sob, cp, palpitations Endorses pain RLE Physical Exam Vital Signs: Vital Signs: Last Vital Signs Temp 98.6 F 01/11/24 07:31 Pulse 84 01/11/24 07:31 Resp 24 H 01/11/24 07:31 BP 142/60 H 01/11/24 07:31 Pulse Ox 93 01/11/24 07:31 O2 Del Method Room Air 01/11/24 07:31 O2 Flow Rate 2 01/11/24 07:31 BMI result Body Mass Index 33.3 Const: General: cooperative, healthy appearing and no acute distress Resp: Effort & Inspection: normal respiratory effort and able to speak in complete sentences Cardio: Rate: regular rate Peripheral pulses: Peripheral pulses 2+ throughout GI: Palpation (GI): Soft to palpation Skin: General skin exam: no rashes or lesions noted Extrem: Other: left knee and upper thigh incisions are c/d/i. No erythema, mild swelling. NVI. RLE: Pain at the ankle knee and hip unable to perform any ROM due to pain Procedures Date of Service Date of Service: 01/11/24 Progress Note: A&P Assessment and plan (1) Comminuted fracture of shaft of femur: Status: Acute Assessment and Plan: Pain mgmnt PT/OT - 50% wb with walker lovenox x48 hrs then resume eliquis US bilateral lower extremities XR right hip, knee and ankle Dispo planning - additional imaging, pain management, ? when to restart eliquis deferring to medicine Time Spent With Patient Time: Total time managing care of this patient today ____ minutes. Quality Stroke Does the patient have a stroke diagnosis?: No VTE Prior VTE?: No VTE Risk Level:: Medical - moderate - high VTE Device Contraindication: N/A - Device Ordered VTE Drug Contraindication: Treatment Not Indicated
--- NOTE | 2024-01-11 09:17 | MHC.CM.PN ---
NO PLAN FOR DC TO [facility] TODAY. PATIENT ENDORSING HIGH LEVELS OF PAIN AND REQUIRES XRAY. [facility] AND [facility] MADE AWARE.
[2024-01-11] MEDS: Gabapentin 100 MG CAPSULE PO ×3 (10:33→20:01)
[2024-01-11] MEDS: Mirabegron 50 MG TAB.ER.24H PO (10:33)
[2024-01-11] MEDS: Magnesium Oxide 400 MG TABLET PO (10:34)
[2024-01-11] MEDS: Cholecalciferol (Vitamin D3) 25 MCG TABLET PO (10:34)
[2024-01-11] MEDS: Memantine HCl 5 MG TABLET PO ×2 (10:34→20:01)
[2024-01-11] MEDS: Multivitamin TABLET 1 TAB PO (10:34)
[2024-01-11 14:21] LABS: Hematocrit 27.8 % (37.0-47.0); Hemoglobin 9.4 g/dl (12.0-16.0)
[2024-01-11] MEDS: oxyCODONE HCl Immed Release 5 MG TABLET 7.5 MG PO (14:26)
--- NOTE | 2024-01-11 16:33 | P.PNIM_ITS ---
Subjective Subjective Date of Service: 01/11/24 Interval History: seen and examined this morning follow up for anemia, left femur fracture having right leg pain Review of Systems Review of Systems: Yes all other systems are reviewed and are negative Constitutional Constitutional: Denies fever(s) Cardiovascular Cardiovascular: Denies chest pain and Denies dyspnea Respiratory Respiratory: Denies dyspnea Physical Exam 2 Vital Signs: Vital Signs: Last Vital Signs Temp 97.5 F 01/11/24 15:17 Pulse 87 01/11/24 15:17 Resp 16 01/11/24 15:17 BP 143/60 H 01/11/24 15:17 Pulse Ox 92 01/11/24 15:17 O2 Del Method Room Air 01/11/24 15:17 O2 Flow Rate 2 01/11/24 07:31 BMI result Body Mass Index 33.3 Const: General: cooperative, comfortable, no acute distress, alert and awake Orientation/consciousness: patient oriented x3 Resp: Effort & Inspection: normal respiratory effort, able to speak in complete sentences, no respiratory distress and no use of accessory muscles A uscultation: clear to auscultation bilaterally Cardio: Rate: regular rate GI: Inspection: No distended Palpation (GI): Soft to palpation and nontender Neuro: Other: grossly nonfocal General: patient oriented x3 Extrem: General: Yes no pedal edema Psych: Insight: Limited insight present (Psych) Objective Data Active Medications Apixaban (Apixaban 5 Mg Tablet) 5 mg PO BID [facility] Gabapentin (Gabapentin 100 Mg Capsule) 100 mg PO TID [facility] Last Admin: 01/11/24 14:26 Dose: 100 mg Documented By: BA Hydromorphone HCl (Hydromorphone Hcl 0.5 Mg/0.5 Ml Syringe) 0.25 mg IVPUSH Q3H PRN; Protocol PRN Reason: Pain, Severe (Pain Scale 7-10) Last Admin: 01/11/24 12:12 Dose: 0.25 mg Documented By: BA Cefazolin Sodium/Dextrose (Ancef) 2 gm in 50 mls @ 100 mls/hr IV POSTOP [facility] Last Infusion: 01/08/24 21:12 Dose: Infused Documented By: BONITA Lisinopril (Lisinopril 10 Mg Tablet) 10 mg PO DAILY [facility]; Protocol Last Admin: 01/09/24 08:14 Dose: 10 mg Documented By: LEEANNE Magnesium Oxide (Magnesium Oxide 400 Mg Tablet) 400 mg PO DAILY [facility] Last Admin: 01/11/24 10:34 Dose: 400 mg Documented By: MARY JO Memantine (Memantine Hcl 5 Mg Tablet) 5 mg PO BID [facility] Last Admin: 01/11/24 10:34 Dose: 5 mg Documented By: MARY JO Metoprolol Succinate (Metoprolol Succinate Er 25 Mg Tab.Er.24h) 25 mg PO DAILY [facility]; Protocol Last Admin: 01/09/24 08:14 Dose: 25 mg Documented By: LEEANNE Mirabegron (Mirabegron 50 Mg Tab.Er.24h) 50 mg PO DAILY [facility] Last Admin: 01/11/24 10:33 Dose: 50 mg Documented By: MARY JO Multivitamins/Vitamin C (Multivitamin Tablet) 1 tab PO DAILY [facility] Last Admin: 01/11/24 10:34 Dose: 1 tab Documented By: MARY JO Ondansetron HCl (Ondansetron Hcl 4 Mg/2 Ml Vial) 4 mg IVPUSH Q8H PRN PRN Reason: Nausea and Vomiting Last Admin: 01/06/24 21:20 Dose: 4 mg Documented By: LUCA Oxycodone HCl (Oxycodone Hcl Immed Release 5 Mg Tablet) 7.5 mg PO Q4H PRN PRN Reason: Pain, Moderate(Pain Scale 4-6) Last Admin: 01/11/24 14:26 Dose: 7.5 mg Documented By: BA Sodium Chloride (0.9 % Sodium Chloride Flush 3 Ml Syringe) 3 ml IVFLUSH QSHIFT [facility] Last Admin: 01/11/24 15:30 Dose: 3 ml Documented By: ANDREW Vitamin D (Cholecalciferol (Vitamin D3) 25 Mcg Tablet) 25 mcg PO DAILY [facility] Last Admin: 01/11/24 10:34 Dose: 25 mcg Documented By: MARY JO Labs 01/11/24 13:47 01/09/24 22:36 Labs: Laboratory Results - last 24 hr 01/09/24 23:07 Crossmatch See Detail Assessment and Plan (1) Acute blood loss anemia: Status: Acute (2) Comminuted fracture of shaft of femur: Status: Acute Plan This is an 83 year old woman with multiple medical problems admitted with left femur fracture after fall at home s/p left IMN nail, hospital course complicated by acute blood loss anemia and hypotension Left femur fracture secondary to mechanical fall POD 3 s/p left retrograde nail - ortho following eliquis for DVT ppx acute blood loss anemia secondary to surgical procedure received 2U blood overnight H/H stable follow am CBC dementia. 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 Seems to be progressing Psych eval for capacity Continue memantine left leg pain all imaging and DVT study negative hypotension likely due to above, pt asymptomatic received IVF and blood transfusion; bp improving will resume metoprolol, hold lisinopril for now Monitor blood pressure closely History of atrial fibrillation, paroxysmal to resume eliquis as H/H has remainedstable resume metoprolol as above History of PAD Hold statin for now History of peripheral neuropathy, likely secondary to peripheral arterial disease Continue gabapentin Hypertension BP low hold metoprolol, lisinopril due to low BP as above DVT prophylaxis- eliquis Attending Dr. rockwell dispo - PT rec STR continue hospital stay for treatment of left femur fracture requiring surgical intervention and close monitoring, due to patient's age and other comorbidities she is high risk for decompensation. Quality Stroke Does the patient have a stroke diagnosis?: No VTE Prior VTE?: No VTE Risk Level:: Medical - moderate - high VTE Device Contraindication: N/A - Device Ordered VTE Drug Contraindication: Treatment Not Indicated
[2024-01-11] MEDS: Apixaban 5 MG TABLET PO (20:01)
[2024-01-12] MEDS: 0.9 % Sodium Chloride Flush 3 ML SYRINGE IVFLUSH ×2 (00:45→08:38)
[2024-01-12] MEDS: HYDROmorphone HCl 0.5 MG/0.5 ML SYRINGE 0.25 MG IVPUSH ×2 (02:45→08:37)
[2024-01-12 03:15] VITALS: RESP 18
[2024-01-12 03:43] VITALS: BP 156/70; PULSE 93; RESP 16; TEMP 37.6; O2SAT 92
[2024-01-12 05:31] VITALS: TEMP 36.8
[2024-01-12 07:50] VITALS: BP 120/58; PULSE 83; RESP 16; TEMP 36.4; O2SAT 91
[2024-01-12] MEDS: Cholecalciferol (Vitamin D3) 25 MCG TABLET PO (08:39)
[2024-01-12] MEDS: Multivitamin TABLET 1 TAB PO (08:39)
[2024-01-12] MEDS: Gabapentin 100 MG CAPSULE PO (08:39)
[2024-01-12] MEDS: Memantine HCl 5 MG TABLET PO (08:39)
[2024-01-12] MEDS: Magnesium Oxide 400 MG TABLET PO (08:39)
[2024-01-12] MEDS: Metoprolol Succinate ER 25 MG TAB.ER.24H PO (08:39)
[2024-01-12] MEDS: Apixaban 5 MG TABLET PO (08:39)
[2024-01-12] MEDS: Mirabegron 50 MG TAB.ER.24H PO (08:39)
[2024-01-12 10:17] LABS: Hematocrit 24.1 % (37.0-47.0)
--- NOTE | 2024-01-12 11:21 | P.DS_ITS ---
DS: Providers Provider Date of Service: 01/12/24 Date of admission: 01/06/24 16:18 Date of discharge: 01/12/24 Primary care physician: Buster Hyde MD Consults: 01/09/24 17:31 Consult to Wound Care Routine Reason for consultation: left heel pressure area,please assess Has provider been notified: No 01/11/24 16:22 Consult to Psychiatry Routine Consulting Provider: Psych Covering Reason for consultation: capacity eval; hope to discharge 01/11 Has provider been notified: No Attending physician on discharge: [facility] Discharging clinician: Aysha Walters DS: Diagnosis Discharge Diagnosis (1) Acute blood loss anemia: Status: Acute (2) Comminuted fracture of shaft of femur: Status: Acute DS: Summary Hospital Course Hospital Course: From H&P on the day of admission 83 year old women with multiple medical problems admitted with hip fracture. She had a fall at home after trying to use the bathroom. She has an aide that helps her at home and she was holding onto some grab bars and the aide let her go to pull a commode under her but she fell to the ground and may have fallen between the commode and a radiator. It did not appear that she had any visible injury but Hip xray showed comminuted spiral fracture distal left femur with lateral displacement and slight varus angulation. Her son was able to help her up, patient reports that this happened on Saturday. Patient denies chest pain, shortness for breath, nausea, vomiting, diarrhea, fever, chills, recent travel, sick contacts. Labs all within acceptable limits, vital signs are stable. Patient received a dose of Hydrea ER. She will be admitted for further management and treatment of acute femur fracture. Left femur fracture secondary to mechanical fall. seen by orthopedic surgery and underwent operative fixation with left retrograde nail on 01/07. She will be continued on eliquis for DVT prophylaxis acute blood loss anemia secondary to surgical procedure. received 2 units of blood with improvement. she was resumed on Eliquis. H/H has stayed similar, remains above transfusion thre shold and vitals are stable. wound recommend following CBC in 2-3 days to ensure the numbers stay stable. dementia. 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 She was seen by psych for capacity evaluation and was deemed NOT to have capacity to make medical decisions. Continue baseline memantine right leg pain. all imaging including ankle, knee and hip imagine and DVT study was negative. hypotension due to above anemia. Improved with transfusion. Metoprolol and lisinopril were placed on hold during episode of hypotension. Blood pressure improved and her metoprolol was resumed. Lisinopril remains on hold. Resume as blood pressure alows. History of atrial fibrillation, paroxysmal Resumed on eliquis and metoprolol. Time Attestation Discharge Coordination Time (in mins): 36 Quality: Safe Use of Opioids Does Pt have an Active Cancer Diagnosis on the Problem List?: No Quality: Stroke Does the patient have a stroke diagnosis?: No Physical Exam Vital Signs: Vital Signs: Last Vital Signs Temp 97.6 F 01/12/24 07:50 Pulse 83 01/12/24 07:50 Resp 16 01/12/24 07:50 BP 120/58 L 01/12/24 07:50 Pulse Ox 91 L 01/12/24 07:50 O2 Del Method Room Air 01/12/24 07:50 O2 Flow Rate 2 01/11/24 07:31 BMI result Body Mass Index 33.3 Const: General: cooperative, comfortable, alert, awake and confusion Orientation/consciousness: patient oriented x3 and confusion Resp: Effort & Inspection: normal respiratory effort, able to speak in complete sentences, no respiratory distress and no use of accessory muscles Auscultation: clear to auscultation bilaterally Cardio: Rate: regular rate GI: Inspection: No distended Palpation (GI): Soft to palpation and nontender Neuro: Other: grossly nonfocal General: patient oriented x3, CN's II-XI intact bilaterally and confusion Extrem: Other: left leg dressing clean and dry without staining General: Yes no pedal edema Psych: Insight: Limited insight present (Psych) DS: Data Data Completed and Pending Labs on day of discharge: Laboratory Results - last 24 hr 01/09/24 01/11/24 01/12/24 23:07 13:47 09:59 Hgb 9.4 L 8.0 L Hct 27.8 L 24.1 L Crossmatch See Detail Discharge Plan Discharge Anticipated Discharge Date/Time: 01/12/24 12:00 Patient Disposition: Xfer SNF Discharge Diagnosis: distal left femur fracture s/p IMN 4/3 acute blood loss anemia Referrals: [facility] [Other] - 1 Week Buster Hyde MD [Primary Care Provider] - 1 Week Discharge Medications: New oxycodone 5 mg Tablet 7.5 mg PO Q4H PRN (Reason: Pain, Moderate(Pain Scale 4-6)) Qty: 10 0RF Rx Instructions: Partial Fill upon patient request. Continued atorvastatin 10 mg tablet 10 mg PO BEDTIME gabapentin 100 mg capsule 100 mg PO TID metoprolol succinate 25 mg tablet extended release 24 hr 25 mg PO DAILY memantine 5 mg tablet 5 mg PO BID cholecalciferol (vitamin D3) 25 mcg (1,000 unit) tablet 25 mcg PO DAILY ferrous sulfate 324 mg (65 mg iron) tablet,delayed release (DR/EC) 324 mg PO DAILY Myrbetriq 50 mg tablet extended release 24 hr 50 mg PO DAILY Eliquis 5 mg tablet 5 mg PO BID magnesium oxide 400 mg magnesium Tablet 400 mg PO DAILY multivitamin Tablet 1 tab PO DAILY acetaminophen 325 mg Tablet 325 mg PO QID PRN (Reason: Pain) Held lisinopril 10 mg tablet 10 mg PO DAILY Hold Instructions: Resume as blood pressure allows Discharge Orders: Discharge Order (Routine); Ordered 01/12/24 Ordered By: Aysha Walters Activity on Discharge: 50%wb with walker Stand Alone Forms: Patient Portal Discharge page Print Language: Chinese Care Plan Goals: see below Health Concerns: left femur fracture s/p repair acute blood loss anemia multifactorial dementia Plan of Treatment: PT/OT - 50% wb with walker to SNF for trial fo STR repeat CBC in 2-3 days to make sure H/H has remained stable pt does NOT have capacity to make medical decisions, HCP has been invoked Assessment: see discharge summary
--- NOTE | 2024-01-12 11:39 | MHC.CM.PN ---
pt rebooked for 1 today to [facility] spoke with sohail to confirm arrangements and to notify facility pts hcp is invoked daphne montano pts rn given number to do a nurse to nurse family notified
[2024-01-12] MEDS: oxyCODONE HCl Immed Release 5 MG TABLET 7.5 MG PO (11:55)
--- NOTE | 2024-01-12 14:15 | PM.EVENT ---
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 History of afib, dementia (CAT 2022 shows multifactorial dementia with encephalomalacia, gliosis R temporal lobe, generalized cerebral volume loss). Pt admitted 01/06/24 s/p fall in her bathroom where she sustained a L Femur fracture with resulting anemia d/t blood loss. Team asks for capacity as pt will be going to rehab today. Fortunately, one of her sons and her daughter, who is her HCP are present for the assessment. Pt does report and exhibit pain today. Pt reports she is going to rehab as her left side is injured, she has foot drop, cannot walk, has pain and arthritis due to a bad fall. She reports she cannot stand. She states she will meet her MD on Saturday and begin rehab with a goal to walk again and go home. She would also like to return to teaching as she loves the children she taught. (Children report she needed to leave teaching secondary to falls). Pt reports she takes Gabapentin. 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 She struggled with understanding of current relevant information details, was able to retain the purpose of rehab, had difficulty with organizing the information to make informed health care choices at this current time and no difficulty in communicating that she would go to rehab. As her HCP (daughter) and son were present we discussed what an HCP was and the function of an HCP. She agrees that having the support of her HCP in decision making is currently helpful as she has complete trust in her children. All agreed activation is appropriate at this time to assist her in this early stage of recovery decision making. Time Spent With Patient Time: Total time managing care of this patient today ____ minutes. Documented by User: Kumar Spain MD 01/12/24 21:17 Event Note Date of Service: 01/12/24
== END 2024-01-12 13:36 | disposition skilled nursing facility (03) | DRG 481 ==
LOC: HO.ED 14:27 → HO.EDOVER 01-07 00:01 → HO.S3 01-07 07:52
PROVIDERS: Anesthesiology; Internal Medicine; Orthopaedic Surgery; Physician Assistant; Admitting Provider Nurse Practitioner Acute Care; Emergency Provider Student in an Organized Health Care Education/Training Program; PCP Internal Medicine; Visit Provider Physician Assistant Medical
PROC: 0QSC36Z Reposition Left Lower Femur with Intramedullary Internal Fixation Device, Percutaneous Approach (ICD-10-PCS; principal; 2024-01-08 16:20)
DX: S72.402A Unspecified fracture of lower end of left femur, initial encounter for closed fracture (principal); D62 Acute posthemorrhagic anemia; M97.12XA Periprosthetic fracture around internal prosthetic left knee joint, initial encounter; N39.0 Urinary tract infection, site not specified; W19.XXXA Unspecified fall, initial encounter; I95.9 Hypotension, unspecified; F03.90 Unspecified dementia, unspecified severity, without behavioral disturbance, psychotic disturbance, mood disturbance, and anxiety; I10 Essential (primary) hypertension; I48.0 Paroxysmal atrial fibrillation; I73.9 Peripheral vascular disease, unspecified; G62.9 Polyneuropathy, unspecified; Z79.01 Long term (current) use of anticoagulants; Z79.899 Other long term (current) drug therapy
CPT/HCPCS: 36415; 71045; 73502; 73560; 73562; 73610; 80048; 80053; 81001; 82607; 82746; 83540; 85014; 85018; 85025; 85027; 85610; 86850; 86900; 86901; 86923; 93005; 93970; 97110; 97162; 97167; 97530; 99285; C1713; C1758; C1769; J0131; J0690; J1100; J1170; J1650; J2371; J2405; J2704; J2795; J3010; J7120; P9016

== ENCOUNTER → 2024-01-06 11:18 | Outpatient (BNV) | payer MEDICARE, SELFPAY | PROVIDERS: Emergency Provider Student in an Organized Health Care Education/Training Program; PCP Internal Medicine; Visit Provider Physician Assistant | DX: S72.352A Displaced comminuted fracture of shaft of left femur, initial encounter for closed fracture (principal) | CPT/HCPCS: 27506; 99024; 99222 ==

== ENCOUNTER → 2024-01-06 11:18 | Outpatient (BNV) | payer MEDICARE, SELFPAY | PROVIDERS: Emergency Provider Student in an Organized Health Care Education/Training Program; PCP Internal Medicine; Visit Provider Nurse Practitioner Acute Care | DX: D62 Acute posthemorrhagic anemia (principal); S72.353A Displaced comminuted fracture of shaft of unspecified femur, initial encounter for closed fracture | CPT/HCPCS: 99223; 99232; 99233; 99239; 99499 ==

== ENCOUNTER → 2024-01-06 12:52 | Outpatient (BNV) | payer MEDICARE, SELFPAY | PROVIDERS: Emergency Provider Student in an Organized Health Care Education/Training Program; PCP Internal Medicine; Visit Provider Internal Medicine Cardiovascular Disease | DX: Z01.818 Encounter for other preprocedural examination (principal); S72.353A Displaced comminuted fracture of shaft of unspecified femur, initial encounter for closed fracture | CPT/HCPCS: 93010 ==

== ENCOUNTER 2024-01-16 11:27 | Inpatient (IN) | payer MEDICARE, SELFPAY ==
[2024-01-16] VITALS (17 sets, daily range): BP systolic 80–140; BP diastolic 26–53; PULSE 82–118; RESP 17–24; TEMP 36.7–37.7; O2SAT 91–97; BMI 39.1
--- NOTE | ~2024-01-16 | XR_ITS ---
EXAMINATION: XR FEMUR, LEFT CLINICAL INFORMATION: ORIF left femur COMPARISON: CT scan of the left femur 01/19/2024. X-ray the left knee 01/06/2024 TECHNIQUE: AP and lateral views of the left femur were obtained. FINDINGS: Skin lex noted. Left total knee arthroplasty in place. Retrograde gisell crossing the spiral oblique fracture of the distal diametaphysis of the femur. Alignment unchanged compared with 01/19/2024 There is air/gas in the medial soft tissues compatible postsurgical result. Vascular stent is noted medial to the proximal femur XR/XR femur LT 2V IMPRESSION: Postoperative changes as above. Stent noted in the medial soft tissues adjacent to the proximal femur
--- NOTE | ~2024-01-16 | CT_ITS ---
EXAMINATION: CT FEMUR WITHOUT CONTRAST, LEFT CLINICAL INFORMATION: Hip fracture, anemia evaluate for bleeding. COMPARISON: X-rays of the left hip 01/06/2024. TECHNIQUE: CT scan of the left femur is performed with reconstruction imaging performed at the acquisition workstation. FINDINGS: There is a left total knee arthroplasty present along with a retrograde femoral nail with interlocking screws proximally and distally. The hardware is intact without fracture or surrounding lucency. There is a mildly displaced mildly comminuted spiral oblique fracture involving the distal diametaphysis of the femur. The distal end of the fracture does not appear intra-articular although evaluation is somewhat limited by the metallic artifact. The distal end of the fracture ends roughly 6 cm proximal to the distal femoral articular surface. The fracture results in lateral displacement of the distal fragment approximately 6 mm with proximal overlapping of the medial cortex 1.6 cm. There is improved alignment compared with the preoperative radiographs in unchanged alignment compared with the intraoperative radiographs allowing for differences in projection. ADDITIONAL FINDINGS: There is a lobular density in the subcutaneous soft tissues abutting the fascia overlying the anterior medial aspect of the anterior compartment muscles. In the setting of trauma this likely reflects subcutaneous contusion/hematoma. This measures up to 3.8 cm transverse, 3.5 cm AP, and 7.8 cm craniocaudal. There is heterogeneous density and some obscuration of the fascia in the anterior muscle compartment involving the vastus muscles compatible with hemorrhage/hematoma possibly related to the adjacent aforementioned fracture. No additional fractures. CT/CT femur LT wo IV con IMPRESSION: 1. Mildly displaced mildly comminuted spiral oblique fracture of the distal femur with postop changes stable compared with the prior intraoperative radiographs. 2. Subcutaneous contusion/hematoma in the anterior subcutaneous soft tissues of the left thigh and anterior muscle compartment of the left thigh.
--- NOTE | ~2024-01-16 | CT_ITS ---
EXAMINATION: CT left femur with IV contrast CLINICAL INFORMATION: Expanding hematoma COMPARISON: Previous CT scans of the left femur January 15 and left lower leg 01/19/2024 TECHNIQUE: Axial images through the left femur following 85 mL Omnipaque 350 IV contrast. Sagittal and coronal reconstructions on the technologist work station were performed. This CT examination was performed using dose optimization techniques as appropriate, variously including the following: *Automated exposure control *Adjustment of mA and/or kV according to patient size (this includes techniques or standardized protocols for targeted exams where dose is matched to indication/reason for exam; i.e. extremities or head) *Use of iterative reconstruction technique DLP 3 3 5 mL Katy centimeter. FINDINGS: There is a large high attenuation focus seen anterior medial to the mid left femoral shaft. This measures approximately 4.7 x 5.2 x 4.1 cm in transverse longitudinal and AP dimension. This appears to communicate with a branch off the left profunda femoral artery. The appearance is suggestive of a large pseudoaneurysm. There is surrounding heterogeneous attenuation mass with fluid fluid levels in the muscles of the anterior compartment of the thigh suggestive of hematoma. This measures 13 x 23 x 13 cm in transverse AP and longitudinal dimension. This is increased in size from 01/16/2024 exam. There is soft tissue mass in the fat of the medial upper thigh measuring 1.5 x 3 cm that is stable and probably represents a hematoma. There are new skin lex in the thigh and knee. There is diffuse stranding of the subcutaneous fat of the thigh and knee. There is a new intramedullary gisell, single proximal and 4 distal screws transfixing the comminuted left distal femoral shaft fracture with improved alignment. There is a left 3 component knee replacement. There is mild arthritis at the left hip joint. There is diverticulosis of the colon. There is a Madrid catheter in the bladder. There is excreted IV contrast in the bladder. There is a small 1.5 cm left ovarian cyst. No imaging follow-up recommended. There is evidence of atherosclerotic disease. 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 Large hematoma in the anterior compartment muscles of the thigh increased in size from 01/16/2024.
--- NOTE | ~2024-01-16 | XR_ITS ---
EXAMINATION: XR CHEST CLINICAL INFORMATION: Aspiration concerns. COMPARISON: 01/09/2024 TECHNIQUE: Frontal view of the chest was obtained. FINDINGS: Low lung volumes. Patchy multifocal airspace disease in the left hemithorax. Pulmonary vasculature is prominent. Thoracic aorta is tortuous and sclerotic. No pleural effusion. Cardiac silhouette is unchanged. Surgical clips project over the right upper quadrant. Advanced degenerative changes of the right shoulder. XR/XR chest 1V IMPRESSION: Multifocal pneumonia. Follow-up until resolution is advised.
--- NOTE | ~2024-01-16 | CT_ITS ---
EXAMINATION: CT LEFT LOWER LEG WITH CONTRAST INDICATION: Evaluate hematoma, worsening anemia COMPARISON: None TECHNIQUE: Multidetector volumetric imaging was obtained from the knee through the foot following intravenous administration of 85 mL Omnipaque 350. Multiplanar reformatted images in coronal and sagittal orientations were submitted. This CT examination was performed using dose optimization techniques as appropriate, variously including the following: *Automated exposure control *Adjustment of mA and/or kV according to patient size (this includes techniques or standardized protocols for targeted exams where dose is matched to indication/reason for exam; i.e. extremities or head) *Use of iterative reconstruction technique DLP: 287.26 mGy-cm FINDINGS: There is a constrained, long stemmed left total knee prosthesis of the proximal margin of the study which appears intact without periprosthetic fracture. A intramedullary nail is partially seen within the distal femur. Patella is appropriately situated. Assessment of a potential knee joint effusion is limited by the metal artifact and coverage. Anterior skin lex are present at the level of the knee joint. No appreciable fluid collections in this region. There is generalized subcutaneous edema and soft tissue swelling at the lower leg. The edema extends to the level of the superficial fascia overlying the calf musculature. No deep fluid collections or significant edema signal within the intermuscular fascial planes. There is moderate to severe atrophy and fatty replacement of the calf musculature. Bones are osteopenic. No acute fractures. Minimal osteoarthritis the talocrural, subtalar, Chopart joints. There is osseous fusion of the midfoot across the naviculocuneiform joint and the first and second TMT joints with intact fixation hardware. The foot is only partially included on the study. A replacement is evident in the intrinsic foot musculature. CT/CT lower leg LT w IV con IMPRESSION: 1. Generalized subcutaneous edema and soft tissue swelling at the lower leg. No appreciable fluid collections or hematomas. 2. Intact left total knee prosthesis. No acute osseous findings. 3. Moderate to severe atrophy and fatty replacement of the calf musculature.
--- NOTE | ~2024-01-16 | US_ITS ---
EXAMINATION: NONINVASIVE ASSESSMENT OF THE ARTERIES OF THE LEFT LOWER EXTREMITY Ran Cardoso MD CLINICAL INFORMATION: Question of popliteal artery injury TECHNIQUE: Left lower extremity duplex ultrasound was performed with velocity measurements and waveform analysis in the common femoral arteries, profunda femoris arteries, proximal mid and distal superficial femoral arteries, popliteal arteries and tibial vessels. This study was performed only at rest. Exam is quite limited by the patient's inability to cooperate. COMPARISON: None FINDINGS: Velocities in cm/sec and phasicity as well as the presence of plaque are reported below. LEFT LEG: Monophasic flow is present throughout the visualized left lower extremity. Plaque is present but evaluation is less than optimal. Common Femoral: 166 Profunda Femoris: No flow seen Proximal SFA: No flow seen Mid SFA: No flow seen Distal SFA (stented): 36 Popliteal: 120 Tibial: No flow seen US/US arterial duplex LE LT IMPRESSION: Limited exam with monophasic flow throughout the left lower extremity. The profunda femoris as well as the proximal and mid SFA are occluded with reconstitution of the distal stented SFA which is patent. No flow is seen in the tibial vessels.
--- NOTE | ~2024-01-16 | US_ITS ---
EXAMINATION: US VENOUS ULTRASOUND WITH DOPPLER LOWER EXTREMITY, LEFT CLINICAL INFORMATION: Swelling, warmth. Known hematoma. Not on anticoagulation. Evaluate for deep vein thrombosis. COMPARISON: CT imaging of femur from 01/16/2024. TECHNIQUE: Ultrasound of the deep veins is performed from the hip to the calf with compression sonography and color and pulse Doppler assessment. Spectral analysis with color-flow imaging is performed. medical imaging technologist reports that this examination was limited due to extensive soft tissue swelling, patient tenderness and body habitus as well as patient inability to move the leg. FINDINGS: The common femoral vein is compressible and exhibits a normal phasic waveform; this suggests that the iliac veins are widely patent above. Within the proximal thigh, the visualized profunda femoris vein is normal. The examined greater saphenous vein and saphenofemoral junction are normal. Superficial femoral vein is patent in the proximal thigh. The femoral vein cannot be adequately visualized in the mid to lower thigh. The soft tissues are edematous. Color Doppler images show presence of flow within the popliteal vein. Also, the color Doppler images show patent appearance of the posterior tibial vein. Peroneal vein cannot be visualized. US/US venous duplex LE LT IMPRESSION: Although no deep vein thrombosis is detected, this is a significantly limited examination due to several factors, including patient body habitus, pain, limited mobility and posttraumatic soft tissue edema. The femoral vein in the mid to lower thigh cannot be adequately visualized.
--- NOTE | 2024-01-16 11:34 | ECG_ITS ---
Test Reason : anemia, weakness Blood Pressure : / mmHG Vent. Rate : 097 BPM Atrial Rate : 097 BPM P-R Int : 162 ms QRS Dur : 086 ms QT Int : 380 ms P-R-T Axes : 078 027 047 degrees QTc Int : 482 ms Sinus rhythm with occasional Premature ventricular complexes Nonspecific ST abnormality Abnormal ECG When compared with ECG of 06-JAN-2024 14:50, Premature ventricular complexes are now Present Referred By: Korina Hernandez Electronically Signed By:Sunil Sykes
[2024-01-16 11:45] LABS: Glucose, Whole Blood 102 mg/dL (60-115)
--- NOTE | 2024-01-16 12:19 | ED.RECABL ---
HPI - Recheck/Abnormal Lab/Rx General Chief Complaint: Recheck/Abnormal Lab/Rx Stated Complaint: ABN LABS PER EMS Time Seen by Provider: 01/16/24 11:48 Source: family, EMS and old records reviewed Mode of arrival: EMS Limitations: other (confused) History of Present Illness HPI narrative: 83 yo female with PMH of PAF on eliquis, HLD, HTN, s/p IMN of L femur for periprosthetic fracture on 01/07 - admitted and treated here 01/05-01/11 had acute blood anemia post hemoglobin 9.6 - 6.9 was transfused 2UPRBC. Was discharged to [facility] and daughter reports some issues there but the daughter is mumbling and seems unsure of what happened and extremely anxious - she reports one night patient was given valium and oxycodone together and then slept all day and hasn't eaten much. Patient was sent back today for hemoglobin 4.9. The patient just keeps asking for warm blankets. The daughter also notes patient is full code. Is still on her [address] complaint: abnormal lab Initial visit (ago): day(s) (today) Returns today for: called because of abnormal lab/test Description of abnormal result: hemoglobin 4.9 Symptoms since prior visit: fever (weakness, not eating) Context: called for abnormal lab result Associated symptoms: other (weakness, poor PO intake) Related Data Home Medications ?Medication ?Instructions ?Recorded ?Confirmed apixaban 5 mg tablet (Eliquis) 5 mg PO BID 01/06/24 01/16/24 atorvastatin 10 mg tablet 10 mg PO BEDTIME 01/06/24 01/16/24 cholecalciferol (vitamin D3) 25 25 mcg PO DAILY 01/06/24 01/16/24 mcg (1,000 unit) tablet ferrous sulfate 324 mg (65 mg 324 mg PO DAILY 01/06/24 01/16/24 iron) tablet,delayed release gabapentin 100 mg capsule 100 mg PO TID 01/06/24 01/16/24 lisinopril 10 mg tablet 10 mg PO DAILY 01/06/24 01/16/24 magnesium oxide 400 mg PO DAILY 01/06/24 01/16/24 memantine 5 mg tablet 5 mg PO BID 01/06/24 01/16/24 metoprolol succinate 25 mg 25 mg PO DAILY 01/06/24 01/16/24 tablet,extended release 24 hr mirabegron 50 mg tablet,extended 50 mg PO DAILY 01/06/24 01/16/24 release 24 hr (Myrbetriq) multivitamin 1 tab PO DAILY 01/06/24 01/16/24 acetaminophen 500 mg tablet 1,000 mg PO TID 01/16/24 01/16/24 docusate sodium 100 mg tablet 100 mg PO BID 01/16/24 01/16/24 oxycodone 5 mg tablet 2.5 mg PO Q6H PRN Pain, 01/16/24 01/16/24 Moderate(Pain Scale 4-6) oxycodone 5 mg tablet 5 mg PO Q6H PRN Pain (Scale Score 01/16/24 01/16/24 7-10) polyethylene glycol 3350 17 17 g PO DAILY 01/16/24 01/16/24 gram/dose oral powder sennosides 8.6 mg tablet (senna) 17.2 mg PO BEDTIME 01/16/24 01/16/24 Allergies Allergy/AdvReac Type Severity Reaction Status Date / Time gentamicin [GENTAMICIN] Allergy Intermediate SWELLING Verified 01/16/24 11:49 sulfamethoxazole Allergy Intermediate RASH Verified 01/16/24 11:49 [From BACTRIM] trimethoprim [From BACTRIM] Allergy Intermediate RASH Verified 01/16/24 11:49 Review of Systems Review of Systems: ROS unable to be obtained due to altered mental status [facility] Past Medical History Attestation statement: The following information was validated with the patient. 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) Unable to assess alcohol history related to: Unable to respond Alcohol intake: former Patient Tobacco Use Status: Never used Tobacco Smoked in Last 30 Days: No Use of substances other than those prescribed or required for medical reasons: No Advance Directives: Yes Advance Directives on File: Yes Advance Directives Date on File: 01/13/24 Nutrition Risks: On aspiration precautions service: No Physical Exam Vital Signs: Vital Signs: Last Vital Signs Temp 99.9 F 01/16/24 15:49 Pulse 98 01/16/24 15:49 Resp 24 H 01/16/24 15:49 BP 98/44 L 01/16/24 15:49 Pulse Ox 96 01/16/24 15:49 O2 Del Method Room Air 01/16/24 15:04 BMI result Body Mass Index 39.1 Appearance: Alert. Oriented X1 Mild acute distress. Eyes: Pupils equal, round and reactive to light. ENT: Pharynx dry MM Neck: Normal inspection. Neck supple. CVS: Normal heart rate and rhythm. Pulses normal. Respiratory: No respiratory distress. Breath sounds normal. Abdomen: Soft and nontender. Skin: Skin warm and dry. pale skin color. Normal skin turgor. Extremities: right leg no edema. L leg moderately swollen yellow in color but not warm to touch and BCR in digits compartments are not tense and incisions are c/d/i Neuro: Oriented X 3. responds to pain in all extremities. cannot participate in exam Course Course Course Narrative: elevated wbc count 1238pm at this time possible infection suspected added on ceftriaxone and lactic acid/cultures hypotension due to anemia and not infection or severe sepsis will resuscitate with blood. Medications Administered Discontinued Medications Generic Name Dose Route Start Last Admin Trade Name Freq PRN Reason Stop Dose Admin Acetaminophen 650 mg 01/16/24 14:37 01/16/24 15:14 Acetaminophen Oral Liquid 650 Mg/20.3 Ml Solution PO 01/16/24 14:38 650 mg ONCE ONE Administration Ceftriaxone Sodium 1 gm/ 50 mls @ 100 mls/hr 01/16/24 12:37 01/16/24 14:10 Sodium Chloride IV 01/16/24 13:06 Infused ONCE ONE Infusion Levofloxacin 750 mg in 150 mls @ 100 mls/hr 01/16/24 13:56 01/16/24 14:58 Levaquin IV 01/16/24 15:25 100 mls/hr ONCE ONE Administration Medical Decision Making Medical Decision Making MDM Narrative: 83 yo female with PMH of PAF on eliquis, HLD, HTN, s/p IMN of L femur for periprosthetic fracture on 01/07 suffering acute blood loss anemia requiring 2 units PRBC sent back for hemoglobin 4.9 no reported GIB symptoms compartments are soft in the leg at this time repeat labs, transfusion will send off stool studies. Admit Differential Diagnosis Differential Diagnoses: The differential diagnosis associated with the presentation includes anemia, GIB Admission/Observation Consideration of admission/observation: Escalation of care including admission/observation considered admit given recurrent anemia, elevated WBC, multifocal pneumonia Consult Healthcare Provider Management of the patient was discussed with: Hospitalist (will admit pending transfusion of blood) and Household Appliances Salesperson (ortho has seen at bedside will follow - pulses intact) Lab Data MDM Lab Attestation statement: I reviewed the patient's lab results. 01/16/24 12:17 01/16/24 12:18 Labs: Lab Results 01/16/24 01/16/24 01/16/24 Range/Units 11:42 12:17 12:18 WBC 16.1 H (4.8-10.8) X10*3/uL RBC 1.43 L D (4.20-5.50) X10*6/uL Hgb 4.6 L* D (12.0-16.0) g/dl Hct 14.3 L* D (37.0-47.0) % MCV 100.0 H (80.0-98.0) fL MCH 32.2 (27.0-33.0) pg MCHC 32.2 (31.0-35.0) g/dl RDW 15.8 (11.0-16.0) % Plt Count 304 D (160-400) X10*3/uL MPV 11.4 (9.4-12.3) fL Immature Gran % (Auto) 1.2 H (0.0-0.4) % Neut % (Auto) 81.4 H (45-73) % Lymph % (Auto) 11.1 L (20-40) % [place] % (Auto) 6.1 (2-11) % Eos % (Auto) 0.1 (0-4) % Baso % (Auto) 0.1 (0-2) % Lymph # (Auto) 1.8 (1.2-4.9) X10*3/uL [place] # (Auto) 1.0 (0.1-1.2) X10*3/uL Eos # (Auto) 0.0 (0.0-0.4) X10*3/uL Baso # (Auto) 0.0 (0.0-0.2) X10*3/uL Abs Immat Gran (auto) 0.20 H (0.00-0.03) X10*3/uL Absolute Neuts (auto) 13.1 H (2.0-8.3) x10*3/uL Absolute Nucleated RBC 0.110 H (0.0-0.012) X10*3/uL Nucleated RBC % (auto) 0.7 H (0.0-0.2) /100WBC APTT 25.4 L (26.0-36.8) SEC Sodium 138 (135-145) mmol/L Potassium 4.5 (3.3-5.1) mmol/L Chloride 108 (96-108) mmol/L Carbon Dioxide 22 (22-29) mmol/L Anion Gap 13 (12-20) BUN 36 H (9-16) mg/dL Creatinine 0.71 (0.5-1.4) mg/dL Estim Creat Clear Calc 70.2 Estimated GFR > 60 POC Glucose 102 (60-115) mg/dL Random Glucose 105 (60-115) mg/dL Lactic Acid (0.5-2.0) mmol/L Calcium 8.1 L (8.4-10.2) mg/dL Magnesium 2.6 (1.6-2.6) mg/dL Total Bilirubin 1.3 H (0.0-1.0) mg/dL Direct Bilirubin 0.5 (0.0-0.5) mg/dL AST 119 H (5-31) U/L ALT 107 H (0-31) U/L Alkaline Phosphatase 91 (39-117) U/L Troponin I High Sens 65.6 H* (<3.5-17.0) ng/L B-Natriuretic Peptide 124 H (<100) pg/mL Total Protein 5.3 L (6.5-8.0) g/dL Albumin 2.6 L (3.5-5.0) g/dL Procalcitonin 1.32 ng/mL Urine Color Urine Appearance Urine pH (5.0-9.0) Ur Specific [place] (1.005-1.025) Urine Protein (Neg-Trace) mg/dL Urine Glucose (UA) (Negative) mg/dL Urine Ketones (Negative) mg/dL Urine Blood (Negative) Urine Nitrite (Negative) Ur Leukocyte Esterase (Negative) Stool Occult Blood (NEGATIVE) Influenza Type A (PCR) (Negative) Influenza Type B (PCR) (Negative) RSV RNA Qual (PCR) (Negative) SARS-CoV-2 RNA (RT-PCR) (Negative) Blood Type Antibody Screen Crossmatch 01/16/24 01/16/24 01/16/24 Range/Units 12:20 13:09 13:47 WBC (4.8-10.8) X10*3/uL RBC (4.20-5.50) X10*6/uL Hgb (12.0-16.0) g/dl Hct (37.0-47.0) % MCV (80.0-98.0) fL MCH (27.0-33.0) pg MCHC (31.0-35.0) g/dl RDW (11.0-16.0) % Plt Count (160-400) X10*3/uL MPV (9.4-12.3) fL Immature Gran % (Auto) (0.0-0.4) % Neut % (Auto) (45-73) % Lymph % (Auto) (20-40) % [place] % (Auto) (2-11) % Eos % (Auto) (0-4) % Baso % (Auto) (0-2) % Lymph # (Auto) (1.2-4.9) X10*3/uL [place] # (Auto) (0.1-1.2) X10*3/uL Eos # (Auto) (0.0-0.4) X10*3/uL Baso # (Auto) (0.0-0.2) X10*3/uL Abs Immat Gran (auto) (0.00-0.03) X10*3/uL Absolute Neuts (auto) (2.0-8.3) x10*3/uL Absolute Nucleated RBC (0.0-0.012) X10*3/uL Nucleated RBC % (auto) (0.0-0.2) /100WBC APTT (26.0-36.8) SEC Sodium (135-145) mmol/L Potassium (3.3-5.1) mmol/L Chloride (96-108) mmol/L Carbon Dioxide (22-29) mmol/L Anion Gap (12-20) BUN (9-16) mg/dL Creatinine (0.5-1.4) mg/dL Estim Creat Clear Calc Estimated GFR POC Glucose (60-115) mg/dL Random Glucose (60-115) mg/dL Lactic Acid 1.1 (0.5-2.0) mmol/L Calcium (8.4-10.2) mg/dL Magnesium (1.6-2.6) mg/dL Total Bilirubin (0.0-1.0) mg/dL Direct Bilirubin (0.0-0.5) mg/dL AST (5-31) U/L ALT (0-31) U/L Alkaline Phosphatase (39-117) U/L Troponin I High Sens (<3.5-17.0) ng/L B-Natriuretic Peptide (<100) pg/mL Total Protein (6.5-8.0) g/dL Albumin (3.5-5.0) g/dL Procalcitonin ng/mL Urine Color Urine Appearance Urine pH (5.0-9.0) Ur Specific [place] (1.005-1.025) Urine Protein (Neg-Trace) mg/dL Urine Glucose (UA) (Negative) mg/dL Urine Ketones (Negative) mg/dL Urine Blood (Negative) Urine Nitrite (Negative) Ur Leukocyte Esterase (Negative) Stool Occult Blood (NEGATIVE) Influenza Type A (PCR) NEGATIVE (Negative) Influenza Type B (PCR) NEGATIVE (Negative) RSV RNA Qual (PCR) NEGATIVE (Negative) SARS-CoV-2 RNA (RT-PCR) NEGATIVE (Negative) Blood Type A Positive Antibody Screen NEGATIVE Crossmatch See Detail 01/16/24 01/16/24 Range/Units 14:57 Unknown WBC (4.8-10.8) X10*3/uL RBC (4.20-5.50) X10*6/uL Hgb (12.0-16.0) g/dl Hct (37.0-47.0) % MCV (80.0-98.0) fL MCH (27.0-33.0) pg MCHC (31.0-35.0) g/dl RDW (11.0-16.0) % Plt Count (160-400) X10*3/uL MPV (9.4-12.3) fL Immature Gran % (Auto) (0.0-0.4) % Neut % (Auto) (45-73) % Lymph % (Auto) (20-40) % [place] % (Auto) (2-11) % Eos % (Auto) (0-4) % Baso % (Auto) (0-2) % Lymph # (Auto) (1.2-4.9) X10*3/uL [place] # (Auto) (0.1-1.2) X10*3/uL Eos # (Auto) (0.0-0.4) X10*3/uL Baso # (Auto) (0.0-0.2) X10*3/uL Abs Immat Gran (auto) (0.00-0.03) X10*3/uL Absolute Neuts (auto) (2.0-8.3) x10*3/uL Absolute Nucleated RBC (0.0-0.012) X10*3/uL Nucleated RBC % (auto) (0.0-0.2) /100WBC APTT (26.0-36.8) SEC Sodium (135-145) mmol/L Potassium (3.3-5.1) mmol/L Chloride (96-108) mmol/L Carbon Dioxide (22-29) mmol/L Anion Gap (12-20) BUN (9-16) mg/dL Creatinine (0.5-1.4) mg/dL Estim Creat Clear Calc Estimated GFR POC Glucose (60-115) mg/dL Random Glucose (60-115) mg/dL Lactic Acid (0.5-2.0) mmol/L Calcium (8.4-10.2) mg/dL Magnesium (1.6-2.6) mg/dL Total Bilirubin (0.0-1.0) mg/dL Direct Bilirubin (0.0-0.5) mg/dL AST (5-31) U/L ALT (0-31) U/L Alkaline Phosphatase (39-117) U/L Troponin I High Sens (<3.5-17.0) ng/L B-Natriuretic Peptide (<100) pg/mL Total Protein (6.5-8.0) g/dL Albumin (3.5-5.0) g/dL Procalcitonin ng/mL Urine Color Yellow Urine Appearance Clear Urine pH 6.5 (5.0-9.0) Ur Specific [place] 1.020 (1.005-1.025) Urine Protein Negative (Neg-Trace) mg/dL Urine Glucose (UA) Negative (Negative) mg/dL Urine Ketones 40 (Negative) mg/dL Urine Blood Negative (Negative) Urine Nitrite Negative (Negative) Ur Leukocyte Esterase Negative (Negative) Stool Occult Blood NEGATIVE (NEGATIVE) Influenza Type A (PCR) (Negative) Influenza Type B (PCR) (Negative) RSV RNA Qual (PCR) (Negative) SARS-CoV-2 RNA (RT-PCR) (Negative) Blood Type Antibody Screen Crossmatch Independent Interpretation I performed an independent interpretation of an: EKG, Plain X-Ray (bilateral patchy infiltrates) and CT Scan (hematoma noted) Interpretation: Rate: 97 Rhythm: NSR with PVCs [place]: normal Normal P waves. Normal FLY. Normal QRS complex. ST T wave : no MARISOL normal qTC: 482 prior studies: no acute ischemia The study has been interpreted contemporaneously by me. . Radiology Impression Discussion of test interpretation with radiology: I have reviewed the radiologist's reading. Independent Historian Clinical information obtained from an independent historian. History obtained from or confirmed by: EMS and Other (daughter) External Record Review External record reviewed: Inpatient record Critical Care Time Critical Care Time Critical Care Time: Yes Total Critical Care Time: 75 Attestation: review of records, family discussion, 2 units of packed RBCs, admission I attest to this time spent taking care of the patient Discharge Plan Discharge Clinical Impression: ABLA (acute blood loss anemia), Multifocal pneumonia Elevated WBC count Qualifiers: Leukocytosis type: unspecified Qualified Code(s): D72.829 - Elevated white blood cell count, unspecified Acute leg pain Qualifiers: Laterality: left Qualified Code(s): M79.605 - Pain in left leg Patient Disposition: Admitted As Inpatient Print Language: Tristanian
[2024-01-16 12:22] LABS: MANUAL DIFF FLAG NO
[2024-01-16 12:29] LABS: Basophils Percent Auto 0.1 % (0-2); Eosinophils Percent Auto 0.1 % (0-4); Imm Gran Pct Auto 1.2 % (0.0-0.4); Lymphocytes Absolute Auto 1.8 X10*3/uL (1.2-4.9); Lymphocytes Percent Auto 11.1 % (20-40); Mean Corpuscular HGB Conc 32.2 g/dl (31.0-35.0); Mean Corpuscular Hemoglobin 32.2 pg (27.0-33.0); Mean Platelet Volume 11.4 fL (9.4-12.3); Monocytes Percent Auto 6.1 % (2-11); NRBC Pct Auto 0.7 /100WBC (0.0-0.2); Neutrophils Absolute Auto 13.1 x10*3/uL (2.0-8.3); Neutrophils Percent Auto 81.4 % (45-73); Platelet Count 304 X10*3/uL (160-400); Red Blood Count 1.43 X10*6/uL (4.20-5.50); Red Cell Distribution Width 15.8 % (11.0-16.0); White Blood Count 16.1 X10*3/uL (4.8-10.8)
[2024-01-16 12:31] LABS: Partial Thromboplastin Time 25.4 SEC (26.0-36.8)
[2024-01-16 12:32] LABS: Hemoglobin 4.6 g/dl (12.0-16.0)
[2024-01-16 12:33] LABS: Hematocrit 14.3 % (37.0-47.0)
[2024-01-16 12:37] LABS: Alanine Aminotransferase 107 U/L (0-31); Albumin Level 2.6 g/dL (3.5-5.0); Alkaline Phosphatase 91 U/L (39-117); Anion Gap 13 (12-20); Aspartate Amino Transferase 119 U/L (5-31); Bilirubin Direct 0.5 mg/dL (0.0-0.5); Bilirubin Total 1.3 mg/dL (0.0-1.0); Blood Urea Nitrogen 36 mg/dL (9-16); Calcium 8.1 mg/dL (8.4-10.2); Carbon Dioxide 22 mmol/L (22-29); Chloride 108 mmol/L (96-108); Creatinine Clr Calc Pharmacy 70.2; Estimated Glomerular Filt Rate > 60; Glucose Random 105 mg/dL (60-115); Magnesium 2.6 mg/dL (1.6-2.6); Potassium 4.5 mmol/L (3.3-5.1); Sodium 138 mmol/L (135-145); Total Protein 5.3 g/dL (6.5-8.0)
[2024-01-16 12:43] LABS: B Type Natriuretic Peptide 124 pg/mL (<100)
[2024-01-16 12:47] LABS: Troponin-I High Sensitivity 65.6 ng/L (<3.5-17.0)
[2024-01-16 12:49] LABS: OBS Int Ctl Valid YES; OBS1 NEGATIVE (NEGATIVE)
[2024-01-16 13:23] LABS: Procalcitonin 1.32 ng/mL
[2024-01-16 13:26] LABS: Lactic Acid 1.1 mmol/L (0.5-2.0)
[2024-01-16] MEDS: cefTRIAXone sodium 1 GM in 0.9 % Sodium Chloride 50 ML IV (13:30)
--- NOTE | 2024-01-16 13:42 | PC.NURSE ---
delay in abx administration d/t pt difficult draw, for lactic cultures, labs obtained and medicated per MAR
--- NOTE | 2024-01-16 14:14 | PHA.MEDREC ---
Pharmacy Consult ? Medication Reconciliation Pharmacy has completed the medication reconciliation. Patient from [facility] with med list. Lillie Ko, LeonardoD
--- NOTE | 2024-01-16 14:28 | PM.IMHP ---
History of Present Illness Date of Service: 01/16/24 Attending physician on admission: Bryn Mcbride Chief Complaint: anemia This is an 83-year-old female with history of dementia who was recently hospitalized for left distal femur fracture and underwent operative fixation on January 07. Following the procedure she was noted to have acute blood loss anemia and received 2 units of blood prior to her discharge. She was discharged to group home facility for rehab and close monitoring. Repeat CBC revealed anemia and she was sent back to the hospital for further evaluation. Patient remained sleepy and unable to provide any significant history. History was obtained primarily from her daughter at the bedside. Her daughter reports she had periods of confusion at the facility and receive a dose of diazepam following which time she was difficult to arouse and did not eat all day yesterday. She reportedly got IV fluid last night. In the emergency department today her H/H was noted to be 4.6/14.3. White count of 16.1. Troponin 65.6, AST 119, ALT 107. Procalcitonin was elevated at 1.32, chest x-ray showed multifocal pneumonia. She had received empiric antibiotics in the emergency department and 2 units of blood was ordered. 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) Unable to assess alcohol history related to: Unable to respond Alcohol intake: former Patient Tobacco Use Status: Never used Tobacco Smoked in Last 30 Days: No Use of substances other than those prescribed or required for medical reasons: No Advance Directives: Yes Advance Directives on File: Yes Advance Directives Date on File: 01/13/24 Nutrition Risks: On aspiration precautions service: No Meds Allergies Allergy/AdvReac Type Severity Reaction Status Date / Time gentamicin [GENTAMICIN] Allergy Intermediate SWELLING Verified 01/16/24 11:49 sulfamethoxazole Allergy Intermediate RASH Verified 01/16/24 11:49 [From BACTRIM] trimethoprim [From BACTRIM] Allergy Intermediate RASH Verified 01/16/24 11:49 Active Medications: Current Medications Docusate Sodium (Docusate Sodium 100 Mg Capsule) 100 mg PO BID [facility] Ferrous Sulfate (Ferrous Sulfate 324 Mg Tablet.Dr) 324 mg PO DAILY [facility] Levofloxacin (Levaquin) 750 mg in 150 mls @ 100 mls/hr IV ONCE ONE Stop: 01/16/24 15:25 Magnesium Oxide (Magnesium Oxide 400 Mg Tablet) 400 mg PO DAILY [facility] Memantine (Memantine Hcl 5 Mg Tablet) 5 mg PO BID [facility] Metoprolol Succinate (Metoprolol Succinate Er 25 Mg Tab.Er.24h) 25 mg PO DAILY [facility]; Protocol Mirabegron (Mirabegron 50 Mg Tab.Er.24h) 50 mg PO DAILY [facility] Oxycodone HCl (Oxycodone Hcl Immed Release 5 Mg Tablet) 5 mg PO Q6H PRN PRN Reason: Pain (Scale Score 7-10) Polyethylene Glycol (Polyethylene Glycol 3350 17 Gm Powd.Pack) 17 gm PO DAILY [facility] Senna (Sennosides 8.6 Mg Tablet) 17.2 mg PO BEDTIME [facility] Home Medications ?Medication ?Instructions ?Recorded ?Confirmed ?Last Taken ?Type apixaban 5 mg tablet (Eliquis) 5 mg PO BID 01/06/24 01/16/24 01/06/24 History atorvastatin 10 mg tablet 10 mg PO BEDTIME 01/06/24 01/16/24 01/05/24 History cholecalciferol (vitamin D3) 25 25 mcg PO DAILY 01/06/24 01/16/24 01/06/24 History mcg (1,000 unit) tablet ferrous sulfate 324 mg (65 mg 324 mg PO DAILY 01/06/24 01/16/24 01/06/24 History iron) tablet,delayed release gabapentin 100 mg capsule 100 mg PO TID 01/06/24 01/16/24 01/06/24 History lisinopril 10 mg tablet 10 mg PO DAILY 01/06/24 01/16/24 01/06/24 History magnesium oxide 400 mg PO DAILY 01/06/24 01/16/24 01/06/24 History memantine 5 mg tablet 5 mg PO BID 01/06/24 01/16/24 01/06/24 History metoprolol succinate 25 mg 25 mg PO DAILY 01/06/24 01/16/24 01/06/24 History tablet,extended release 24 hr mirabegron 50 mg tablet,extended 50 mg PO DAILY 01/06/24 01/16/24 01/06/24 History release 24 hr (Myrbetriq) multivitamin 1 tab PO DAILY 01/06/24 01/16/24 01/06/24 History acetaminophen 500 mg tablet 1,000 mg PO TID 01/16/24 01/16/24 Unknown History docusate sodium 100 mg tablet 100 mg PO BID 01/16/24 01/16/24 Unknown History oxycodone 5 mg tablet 2.5 mg PO Q6H PRN Pain, 01/16/24 01/16/24 Unknown History Moderate(Pain Scale 4-6) oxycodone 5 mg tablet 5 mg PO Q6H PRN Pain (Scale Score 01/16/24 01/16/24 Unknown History 7-10) polyethylene glycol 3350 17 17 g PO DAILY 01/16/24 01/16/24 Unknown History gram/dose oral powder sennosides 8.6 mg tablet (senna) 17.2 mg PO BEDTIME 01/16/24 01/16/24 Unknown History Physical Exam Vital Signs and Narrative: Vital Signs: Last Vital Signs Temp 98.3 F 01/16/24 11:45 Pulse 94 01/16/24 11:45 Resp 20 01/16/24 11:45 BP 110/36 L 01/16/24 11:45 Pulse Ox 94 01/16/24 11:45 O2 Del Method Room Air 01/16/24 11:45 BMI result Body Mass Index 39.1 Const: Other: pale, ill appearing; sleepy, confused Nutritional Appearance: obese Resp: Effort & Inspection: normal respiratory effort, able to speak in complete sentences, no respiratory distress and no use of accessory muscles Cardio: Rate: regular rate GI: Inspection: No distended Palpation (GI): Soft to palpation Neuro: Other: difficult to assess, sleepy, confused Extrem: Other: left leg with significant swelling Results Labs 01/16/24 12:17 01/16/24 12:18 Labs: Laboratory Results - last 24 hr 01/16/24 01/16/24 01/16/24 11:42 12:17 12:18 MCV 100.0 H MCH 32.2 MCHC 32.2 RDW 15.8 Plt Count 304 D MPV 11.4 Immature Gran % (Auto) 1.2 H Neut % (Auto) 81.4 H Lymph % (Auto) 11.1 L Rice % (Auto) 6.1 Eos % (Auto) 0.1 Baso % (Auto) 0.1 Lymph # (Auto) 1.8 Rice # (Auto) 1.0 Eos # (Auto) 0.0 Baso # (Auto) 0.0 Abs Immat Gran (auto) 0.20 H Absolute Neuts (auto) 13.1 H Absolute Nucleated RBC 0.110 H Nucleated RBC % (auto) 0.7 H APTT 25.4 L Anion Gap 13 Estim Creat Clear Calc 70.2 Estimated GFR > 60 POC Glucose 102 Random Glucose 105 Lactic Acid Calcium 8.1 L Magnesium 2.6 Total Bilirubin 1.3 H Direct Bilirubin 0.5 AST 119 H ALT 107 H Alkaline Phosphatase 91 Troponin I High Sens 65.6 H* B-Natriuretic Peptide 124 H Total Protein 5.3 L Albumin 2.6 L Procalcitonin 1.32 Stool Occult Blood Blood Type Antibody Screen Crossmatch 01/16/24 01/16/24 01/16/24 12:20 13:09 Unknown MCV MCH MCHC RDW Plt Count MPV Immature Gran % (Auto) Neut % (Auto) Lymph % (Auto) Rice % (Auto) Eos % (Auto) Baso % (Auto) Lymph # (Auto) Rice # (Auto) Eos # (Auto) Baso # (Auto) Abs Immat Gran (auto) Absolute Neuts (auto) Absolute Nucleated RBC Nucleated RBC % (auto) APTT Anion Gap Estim Creat Clear Calc Estimated GFR POC Glucose Random Glucose Lactic Acid 1.1 Calcium Magnesium Total Bilirubin Direct Bilirubin AST ALT Alkaline Phosphatase Troponin I High Sens B-Natriuretic Peptide Total Protein Albumin Procalcitonin Stool Occult Blood NEGATIVE Blood Type A Positive Antibody Screen NEGATIVE Crossmatch See Detail Imaging Radiologist's Impressions: Impressions Chest X-Ray 01/16/24 12:34 IMPRESSION: Multifocal pneumonia. Follow-up until resolution is advised. Assessment and Plan (1) Multifocal pneumonia: Status: Acute (2) ABLA (acute blood loss anemia): Status: Acute Plan This is an 83 yo female with PMH of PAF on eliquis, HLD, HTN, s/p IMN of L femur for periprosthetic fracture on 01/07 - admitted and treated here 01/05-01/11 had acute blood anemia post hemoglobin 9.6 - 6.9 was transfused 2UPRBC. Was discharged to [facility] and returns with recurrent anemia found to have multifocal pneumonia acute on chronic anemia due to blood loss recently IMN 01/07 for femur fracture and on eliquis for afib/dvt ppx following surgery received 2U blood 01/08 during hospitalization repeat CBC at rehab low CT left leg with subq contusion/hematoma in the anterior subcutaneous soft tissues and anterior muscle compartment of the left thigh 2U blood ordered in ED and first has transfused seen by ortho, no surgical intervention required at this time stool occult negative hold Eliquis follow CBC Multifocal pneumonia with possible sepsis pt has white count 16.1 and HR above 90 but lactic acid is normal procalcitonin 1.32 one episode of hypotension could be from anemia Concern for aspiration as patient was reportedly sedated yesterday at facility Passed bedside swallow, will start pureed diet but will obtain formal speech evaluation aspiration precautions blood cultures pending elevated trops likely due to demand related to anemia trops have remained flat no chest pain elevated LFTS hold statin minimize tylenol follow liver function left femur fracture s/p IMN 01/07 continue oxy prn for pain, limit use to avoid sedation continue bowel regimen toxic metabolic encephalopathy on a background of multifactorial cognitive impairment likely multifactorial due to acute illness, acute anemia, recent surgery, rehab stay and recent hospitalization seen by psych last hospitalization, does NOT have capacity to make medical decisions - HCP is daughter Yenni continue namenda hold gabapentin Paroxysmal atrial fibrillation In sinus Hold metoprolol for soft BP Hold Eliquis for anemia/hematoma HTN metoprolol on hold for soft bp monitor blood pressure closely code status- full code attending - dr. mcbride Patient will likely require 2 midnight stay in the hospital due to acute blood loss anemia, multifocal pneumonia requiring IV antibiotics, specialist evaluation, and close monitoring of blood pressure given her age and comorbidities can not be done in the lesser acute setting. Quality Stroke Does the patient have a stroke diagnosis?: No VTE Prior VTE?: No VTE Risk Level:: Medical - moderate - high VTE Device Contraindication: N/A - Device Ordered VTE Drug Contraindication: Treatment Not Indicated
[2024-01-16 14:43] LABS: Influenza A PCR NEGATIVE (Negative); Influenza B PCR NEGATIVE (Negative); Resp Syncy Virus RNA Qual PCR NEGATIVE (Negative); SARS COV2 PCR INHOUSE NEGATIVE (Negative)
[2024-01-16] MEDS: levoFLOXacin/D5W 750 MG/150 ML PIGGYBACK 100 MG IV (14:58)
[2024-01-16 15:11] LABS: Appearance Urine Clear; Color Urine Yellow; Glucose Urine UA Negative (Negative); Leukocyte Esterase Urine Negative (Negative); Nitrite Urine Negative (Negative); PH 6.5 (5.0-9.0); Urine Blood Negative (Negative); Urine Ketones 40 mg/dL (Negative); Urine Protein Negative (Neg-Trace)
[2024-01-16] MEDS: Acetaminophen Oral Liquid 650 MG/20.3 ML SOLUTION PO (15:14)
--- NOTE | 2024-01-16 15:27 | PC.NURSE ---
16F temp sensing patel cath placed, 2nd IV access obtained R AC, pt to CT. urine to lab. pt medicated per MAR, levofloxacin running, PRBC started per TAR. pt awake, some contusion to place/time/situation - passes swallow eval at this time, but d/t episodes of confusion/somnolence would benefit from [employer] swallow eval. pt calm taking to son on the phone, son and ENVIRONMENTAL HEALTH AND SAFETY LEADER at bedside. HR variable afib w rate of 80s-155, provider aware, core temp of 99.9, medicated w liquid tylenol - pt tolerated well.
--- NOTE | 2024-01-16 16:05 | PM.CNOR ---
History of Present Illness HPI Consult date: 01/16/24 Chief complaint: Anemia Narrative: HPI obtained from the ED provider due to patients mental status. 83 yo female with PMH of PAF on eliquis, HLD, HTN, s/p IMN of L femur for periprosthetic fracture on 01/07 - admitted and treated here 01/05-01/11 had acute blood anemia post hemoglobin 9.6 - 6.9 was transfused 2UPRBC. Was discharged to [facility] and daughter reports some issues there but the daughter is mumbling and seems unsure of what happened and extremely anxious - she reports one night patient was given valium and oxycodone together and then slept all day and hasn't eaten much. Patient was sent back today for hemoglobin 4.9. The patient just keeps asking for warm blankets. The daughter also notes patient is full code. 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) Unable to assess alcohol history related to: Unable to respond Alcohol intake: former Patient Tobacco Use Status: Never used Tobacco Smoked in Last 30 Days: No Use of substances other than those prescribed or required for medical reasons: No Advance Directives: Yes Advance Directives on File: Yes Advance Directives Date on File: 01/13/24 Nutrition Risks: On aspiration precautions service: No Meds Allergies Allergy/AdvReac Type Severity Reaction Status Date / Time gentamicin [GENTAMICIN] Allergy Intermediate SWELLING Verified 01/16/24 11:49 sulfamethoxazole Allergy Intermediate RASH Verified 01/16/24 11:49 [From BACTRIM] trimethoprim [From BACTRIM] Allergy Intermediate RASH Verified 01/16/24 11:49 Active Medications: Current Medications Acetaminophen (Acetaminophen 325 Mg Tablet) 650 mg PO Q6H PRN PRN Reason: Pain, Mild (Pain Scale 1-3) Docusate Sodium (Docusate Sodium 100 Mg Capsule) 100 mg PO BID [facility] Ferrous Sulfate (Ferrous Sulfate 324 Mg Tablet.Dr) 324 mg PO DAILY [facility] Magnesium Oxide (Magnesium Oxide 400 Mg Tablet) 400 mg PO DAILY [facility] Memantine (Memantine Hcl 5 Mg Tablet) 5 mg PO BID [facility] Metoprolol Succinate (Metoprolol Succinate Er 25 Mg Tab.Er.24h) 25 mg PO DAILY [facility]; Protocol Mirabegron (Mirabegron 50 Mg Tab.Er.24h) 50 mg PO DAILY [facility] Ondansetron HCl (Ondansetron Hcl 4 Mg/2 Ml Vial) 4 mg IVPUSH Q8H PRN PRN Reason: Nausea and Vomiting Oxycodone HCl (Oxycodone Hcl Immed Release 5 Mg Tablet) 5 mg PO Q6H PRN PRN Reason: Pain (Scale Score 7-10) Polyethylene Glycol (Polyethylene Glycol 3350 17 Gm Powd.Pack) 17 gm PO DAILY [facility] Senna (Sennosides 8.6 Mg Tablet) 17.2 mg PO BEDTIME [facility] Sodium Chloride (0.9 % Sodium Chloride Flush 3 Ml Syringe) 3 ml IVFLUSH QSHIFT [facility] Home Medications ?Medication ?Instructions ?Recorded ?Confirmed ?Last Taken ?Type apixaban 5 mg tablet (Eliquis) 5 mg PO BID 01/06/24 01/16/24 01/06/24 History atorvastatin 10 mg tablet 10 mg PO BEDTIME 01/06/24 01/16/24 01/05/24 History cholecalciferol (vitamin D3) 25 25 mcg PO DAILY 01/06/24 01/16/24 01/06/24 History mcg (1,000 unit) tablet ferrous sulfate 324 mg (65 mg 324 mg PO DAILY 01/06/24 01/16/24 01/06/24 History iron) tablet,delayed release gabapentin 100 mg capsule 100 mg PO TID 01/06/24 01/16/24 01/06/24 History lisinopril 10 mg tablet 10 mg PO DAILY 01/06/24 01/16/24 01/06/24 History magnesium oxide 400 mg PO DAILY 01/06/24 01/16/24 01/06/24 History memantine 5 mg tablet 5 mg PO BID 01/06/24 01/16/24 01/06/24 History metoprolol succinate 25 mg 25 mg PO DAILY 01/06/24 01/16/24 01/06/24 History tablet,extended release 24 hr mirabegron 50 mg tablet,extended 50 mg PO DAILY 01/06/24 01/16/24 01/06/24 History release 24 hr (Myrbetriq) multivitamin 1 tab PO DAILY 01/06/24 01/16/24 01/06/24 History acetaminophen 500 mg tablet 1,000 mg PO TID 01/16/24 01/16/24 Unknown History docusate sodium 100 mg tablet 100 mg PO BID 01/16/24 01/16/24 Unknown History oxycodone 5 mg tablet 2.5 mg PO Q6H PRN Pain, 01/16/24 01/16/24 Unknown History Moderate(Pain Scale 4-6) oxycodone 5 mg tablet 5 mg PO Q6H PRN Pain (Scale Score 01/16/24 01/16/24 Unknown History 7-10) polyethylene glycol 3350 17 17 g PO DAILY 01/16/24 01/16/24 Unknown History gram/dose oral powder sennosides 8.6 mg tablet (senna) 17.2 mg PO BEDTIME 01/16/24 01/16/24 Unknown History Physical Exam Vital Signs: Vital Signs: Last Vital Signs Temp 99.9 F 01/16/24 15:49 Pulse 98 01/16/24 15:49 Resp 24 H 01/16/24 15:49 BP 98/44 L 01/16/24 15:49 Pulse Ox 96 01/16/24 15:49 O2 Del Method Room Air 01/16/24 15:04 BMI result Body Mass Index 39.1 Const: General: cooperative, healthy appearing and no acute distress Resp: Effort & Inspection: normal respiratory effort and able to speak in complete sentences Cardio: Rate: regular rate Peripheral pulses: Peripheral pulses 2+ throughout GI: Palpation (GI): Soft to palpation Skin: Lesions: no lesions Rashes: no rashes Extrem: Other: LLE is moderately swollen. Incision sites are c/d/i no surrounding erythema or drainage. No sign of infection. Compartments are soft and compressible. Results Labs 01/16/24 12:17 01/16/24 12:18 Labs: Abnormal lab results 01/16/24 01/16/24 01/16/24 Range/Units 12:17 12:18 12:20 WBC 16.1 H (4.8-10.8) X10*3/uL RBC 1.43 L D (4.20-5.50) X10*6/uL Hgb 4.6 L* D (12.0-16.0) g/dl Hct 14.3 L* D (37.0-47.0) % MCV 100.0 H (80.0-98.0) fL Immature Gran % (Auto) 1.2 H (0.0-0.4) % Neut % (Auto) 81.4 H (45-73) % Lymph % (Auto) 11.1 L (20-40) % Abs Immat Gran (auto) 0.20 H (0.00-0.03) X10*3/uL Absolute Neuts (auto) 13.1 H (2.0-8.3) x10*3/uL Absolute Nucleated RBC 0.110 H (0.0-0.012) X10*3/uL Nucleated RBC % (auto) 0.7 H (0.0-0.2) /100WBC APTT 25.4 L (26.0-36.8) SEC BUN 36 H (9-16) mg/dL Calcium 8.1 L (8.4-10.2) mg/dL Total Bilirubin 1.3 H (0.0-1.0) mg/dL AST 119 H (5-31) U/L ALT 107 H (0-31) U/L Troponin I High Sens 65.6 H* (<3.5-17.0) ng/L B-Natriuretic Peptide 124 H (<100) pg/mL Total Protein 5.3 L (6.5-8.0) g/dL Albumin 2.6 L (3.5-5.0) g/dL Crossmatch See Detail H & H 01/16/24 Range/Units 12:17 Hgb 4.6 L* D (12.0-16.0) g/dl Hct 14.3 L* D (37.0-47.0) % All other labs normal. Assessment and Plan (1) Acute leg pain: Qualifiers: Laterality: left Qualified Code(s): M79.605 - Pain in left leg Status: Acute Keep incision sites c/d/i 50% WB LLE No signs of infection No additional orthopedic intervention at this time (2) Multifocal pneumonia: Status: Acute (3) Elevated WBC count: Qualifiers: Leukocytosis type: unspecified Qualified Code(s): D72.829 - Elevated white blood cell count, unspecified Status: Acute (4) ABLA (acute blood loss anemia): Status: Acute (5) Acute blood loss anemia: Status: Acute Procedures Date of Service Date of Service: 01/16/24
[2024-01-16] MEDS: 0.9 % Sodium Chloride Flush 3 ML SYRINGE IVFLUSH (16:30)
--- NOTE | 2024-01-16 16:30 | PC.NURSE ---
pt previously identified by blood bank as TACO risk, per provider verbal order, rate increased on PRBC r/t pt hypotensive, running at 100ml/hr - pt tolerating well .
[2024-01-16 16:49] LABS: Troponin-I High Sensitivity 74.1 ng/L (<3.5-17.0)
--- NOTE | 2024-01-16 18:44 | PC.NURSE ---
called pharmacy to bring ampicillin to ED.
--- NOTE | 2024-01-16 19:36 | PM.EVENT ---
Event Note Date of Service: 01/16/24 Event Note: Pt. seen at 4:30 pm today. Postop anemia with Hgb down to 4.8. CT reviewed and severly calcified vessels and heatoma. Motor and sensation intact. Good cap refill. Art us ordered. Time Spent With Patient Time: Total time managing care of this patient today ____ minutes.
--- NOTE | 2024-01-16 21:08 | MHC.EDTECH ---
THIS PCT ASSUMED CARE OF PATIENT AT 2030 ,VITALS TAKEN ,PT WAS REPOSITION AND BOOSTED UP IN BED ,MOUTH CARE GIVEN ,pATIENT DAUGHTER AT BEDSIDE .
[2024-01-16] MEDS: Ampicillin Sodium/Sulbactam Na 1.5 GM in 0.9 % Sodium Chloride 100 ML IV (21:12)
--- NOTE | 2024-01-16 21:16 | PC.NURSE ---
Patient tolerating blood transfusion well, no s/s adverse reactions noted. VSS. Patient's daughter at bedside, call patel in patient's reach.
--- NOTE | 2024-01-16 21:21 | PC.NURSE ---
Second unit of PRBC's infused.
--- NOTE | 2024-01-16 21:28 | PC.NURSE ---
Patient c/o mild nausea and pain in right hip, medicated with Zofran 4 mg IV push and Oxycodone 5 mg PO.
[2024-01-16] MEDS: ondansetron HCL 4 MG/2 ML VIAL IVPUSH (21:30)
[2024-01-16] MEDS: Memantine HCl 5 MG TABLET PO (21:30)
[2024-01-16] MEDS: Docusate Sodium 100 MG CAPSULE PO (21:30)
--- NOTE | 2024-01-16 21:30 | PC.NURSE ---
Patient given bedtime medications in pudding. Patient required frequent reminders to swallow. Swallow eval by speech therapist is pending.
[2024-01-16] MEDS: Sennosides 8.6 MG TABLET 17.2 MG PO (21:31)
[2024-01-16] MEDS: oxyCODONE HCl Immed Release 5 MG TABLET PO (21:31)
--- NOTE | 2024-01-16 21:59 | MHC.EDTECH ---
PATIENT TOOK SIPS OF WATER ON SPONGE AND ATE FEW BITES OF PUDDING ,750 ML EMPTY FROM [facility] .
[2024-01-17] VITALS (13 sets, daily range): BP systolic 99–136; BP diastolic 47–79; PULSE 76–147; RESP 16–20; TEMP 36.3–37.7; O2SAT 94–97
[2024-01-17] MEDS: 0.9 % Sodium Chloride Flush 3 ML SYRINGE IVFLUSH ×4 (00:06→21:11)
[2024-01-17] MEDS: Ampicillin Sodium/Sulbactam Na 1.5 GM in 0.9 % Sodium Chloride 100 ML IV ×5 (00:07→23:57)
--- NOTE | 2024-01-17 00:12 | PC.NURSE ---
Patient requested water. Patient had few sips of water with straw with no difficulty swallowing noted.
[2024-01-17 00:44] LABS: Hematocrit 21.5 % (37.0-47.0); Hemoglobin 7.2 g/dl (12.0-16.0)
--- NOTE | 2024-01-17 03:17 | PC.NURSE ---
[facility] for L. distal femur fx operative fixation 01/07. Sent over for anemia. PMH: dementia, Afib ( holding eliquis), cognitive impairment. Pt presents with h and h of 4.6 and 14.3 and given 2 units of PRBC as well as cxr showing pneumonia and given antibiotics . Pt was seen by ortho and cleared. Be mindful with pain medication as per daughter when given prior she was very lethargic from them. Pt has cognitive impairment and psych reports cant make medical decisions so Valeri her daughter is HCP. Plan : trend CBC, antibiotics for pneumonia, hold eliquis at this time, speech eval ( passed dysphasia) however on puree diet and aspiration precautions. Pt also has a patel that was placed in ED ( temp sensing). Elevated trops 65/71 prob due to anemia. Negative occult blood . H and H recheck at 7.2 and 21.5
[2024-01-17 05:23] LABS: MANUAL DIFF FLAG NO
[2024-01-17 05:28] LABS: Basophils Percent Auto 0.3 % (0-2); Eosinophils Percent Auto 0.2 % (0-4); Hematocrit 22.7 % (37.0-47.0); Hemoglobin 7.4 g/dl (12.0-16.0); Imm Gran Abs Auto 0.34 X10*3/uL (0.00-0.03); Imm Gran Pct Auto 2.3 % (0.0-0.4); Lymphocytes Absolute Auto 1.7 X10*3/uL (1.2-4.9); Lymphocytes Percent Auto 11.5 % (20-40); Mean Corpuscular HGB Conc 32.6 g/dl (31.0-35.0); Mean Corpuscular Hemoglobin 31.2 pg (27.0-33.0); Mean Corpuscular Volume 95.8 fL (80.0-98.0); Monocytes Absolute Auto 1.1 X10*3/uL (0.1-1.2); Monocytes Percent Auto 7.8 % (2-11); NRBC Pct Auto 1.9 /100WBC (0.0-0.2); Neutrophils Absolute Auto 11.3 x10*3/uL (2.0-8.3); Neutrophils Percent Auto 77.9 % (45-73); Platelet Count 285 X10*3/uL (160-400); Red Blood Count 2.37 X10*6/uL (4.20-5.50); Red Cell Distribution Width 16.4 % (11.0-16.0); White Blood Count 14.6 X10*3/uL (4.8-10.8)
[2024-01-17 05:45] LABS: Alanine Aminotransferase 130 U/L (0-31); Albumin Level 2.7 g/dL (3.5-5.0); Alkaline Phosphatase 88 U/L (39-117); Anion Gap 11 (12-20); Aspartate Amino Transferase 115 U/L (5-31); Bilirubin Direct 0.5 mg/dL (0.0-0.5); Bilirubin Total 1.3 mg/dL (0.0-1.0); Blood Urea Nitrogen 30 mg/dL (9-16); Calcium 8.3 mg/dL (8.4-10.2); Carbon Dioxide 24 mmol/L (22-29); Chloride 108 mmol/L (96-108); Creatinine Clr Calc Pharmacy 89.1; Estimated Glomerular Filt Rate > 60; Glucose Random 103 mg/dL (60-115); Potassium 3.9 mmol/L (3.3-5.1); Sodium 139 mmol/L (135-145); Total Protein 5.3 g/dL (6.5-8.0)
--- NOTE | 2024-01-17 07:59 | P.CONGS_ITS ---
History of Present Illness Consult details Consult date: 01/16/24 Narrative: Pleasant 83-year-old female with a history of dementia had undergone operative fixation of left distal femur fracture by Orthopedics. There was a fair amount of blood loss during the operation and she received 2 units of packed red blood cells prior to her discharge. She was sent to a rehab facility and she was subsequently sent back for anemia. At the time of presentation she was noted to have a hemoglobin of 4.6. Concern was of an arterial injury. We were in consultation for arterial evaluation. Of note she does have dimension it was difficult to ascertain a true review of systems but denied any significant pain. She did have difficulty moving the leg in general. She did have motor and sensation intact of the foot. Review of Systems 2 Review of Systems: Yes all other systems are reviewed and are negative Constitutional: Constitutional: Reports no additional constitutional complaints ENT: Reports Normal hearing present Cardiovascular: Cardiovascular: Denies chest pain, Denies chest pain at rest, Denies chest pain with activity and Denies pedal edema Respiratory: Respiratory: Denies cough Gastrointestinal: Gastrointestinal: Denies abdominal pain Musculoskeletal: Musculoskeletal: Denies abnormal gait, Denies muscle cramps and Denies radiating pain into limb Integumentary/Breasts: Skin/Breast: Denies skin ulcer and Denies wounds Neurologic: Reports Normal hearing present and Denies abnormal gait Psychiatric: Psychiatric: Reports no additional psychiatric complaints [facility] Past Medical History Medical History (Updated 01/17/24 @ 08:03 by Harlan Ford MD) Paroxysmal atrial fibrillation Peripheral neuropathy TIA (transient ischemic attack) PAD (peripheral artery disease) Foot drop Carotid artery stenosis Afib Hyperlipidemia Anemia Hypertension Surgical History Surgical History H/O foot surgery History of bilateral knee replacement H/O tubal ligation History of cholecystectomy H/O endarterectomy Social History Social History Household Members: Children Housing: House Do you presently have visiting nurse or other home services: Yes (private magazine filler) Unable to assess alcohol history related to: Unable to respond Alcohol intake: former Patient Tobacco Use Status: Never used Tobacco Smoked in Last 30 Days: No Use of substances other than those prescribed or required for medical reasons: No Advance Directives: Yes Advance Directives on File: Yes Advance Directives Date on File: 01/13/24 Nutrition Risks: On aspiration precautions service: No Meds Allergies Allergy/AdvReac Type Severity Reaction Status Date / Time gentamicin [GENTAMICIN] Allergy Intermediate SWELLING Verified 01/16/24 11:49 sulfamethoxazole Allergy Intermediate RASH Verified 01/16/24 11:49 [From BACTRIM] trimethoprim [From BACTRIM] Allergy Intermediate RASH Verified 01/16/24 11:49 Active Medications: Current Medications Acetaminophen (Acetaminophen 325 Mg Tablet) 650 mg PO Q6H PRN PRN Reason: Pain, Mild (Pain Scale 1-3) Docusate Sodium (Docusate Sodium 100 Mg Capsule) 100 mg PO BID [facility] Last Admin: 01/16/24 21:30 Dose: 100 mg Ferrous Sulfate (Ferrous Sulfate 324 Mg Tablet.Dr) 324 mg PO DAILY [facility] Ampicillin Sodium/Sulbactam (Sodium 1.5 gm/ Sodium Chloride) 100 mls @ 200 mls/hr IV Q6H [facility] Last Infusion: 01/17/24 06:13 Dose: Infused Magnesium Oxide (Magnesium Oxide 400 Mg Tablet) 400 mg PO DAILY [facility] Memantine (Memantine Hcl 5 Mg Tablet) 5 mg PO BID [facility] Last Admin: 01/16/24 21:30 Dose: 5 mg Mirabegron (Mirabegron 50 Mg Tab.Er.24h) 50 mg PO DAILY [facility] Ondansetron HCl (Ondansetron Hcl 4 Mg/2 Ml Vial) 4 mg IVPUSH Q8H PRN PRN Reason: Nausea and Vomiting Last Admin: 01/16/24 21:30 Dose: 4 mg Oxycodone HCl (Oxycodone Hcl Immed Release 5 Mg Tablet) 5 mg PO Q6H PRN PRN Reason: Pain (Scale Score 7-10) Last Admin: 01/16/24 21:31 Dose: 5 mg Polyethylene Glycol (Polyethylene Glycol 3350 17 Gm Powd.Pack) 17 gm PO DAILY [facility] Senna (Sennosides 8.6 Mg Tablet) 17.2 mg PO BEDTIME [facility] Last Admin: 01/16/24 21:31 Dose: 17.2 mg Sodium Chloride (0.9 % Sodium Chloride Flush 3 Ml Syringe) 3 ml IVFLUSH QSHIFT [facility] Last Admin: 01/17/24 00:06 Dose: 3 ml Home Medications ?Medication ?Instructions ?Recorded ?Confirmed ?Last Taken ?Type apixaban 5 mg tablet (Eliquis) 5 mg PO BID 01/06/24 01/16/24 01/06/24 History atorvastatin 10 mg tablet 10 mg PO BEDTIME 01/06/24 01/16/24 01/05/24 History cholecalciferol (vitamin D3) 25 25 mcg PO DAILY 01/06/24 01/16/24 01/06/24 History mcg (1,000 unit) tablet ferrous sulfate 324 mg (65 mg 324 mg PO DAILY 01/06/24 01/16/24 01/06/24 History iron) tablet,delayed release gabapentin 100 mg capsule 100 mg PO TID 01/06/24 01/16/24 01/06/24 History lisinopril 10 mg tablet 10 mg PO DAILY 01/06/24 01/16/24 01/06/24 History magnesium oxide 400 mg PO DAILY 01/06/24 01/16/24 01/06/24 History memantine 5 mg tablet 5 mg PO BID 01/06/24 01/16/24 01/06/24 History metoprolol succinate 25 mg 25 mg PO DAILY 01/06/24 01/16/24 01/06/24 History tablet,extended release 24 hr mirabegron 50 mg tablet,extended 50 mg PO DAILY 01/06/24 01/16/24 01/06/24 History release 24 hr (Myrbetriq) multivitamin 1 tab PO DAILY 01/06/24 01/16/24 01/06/24 History acetaminophen 500 mg tablet 1,000 mg PO TID 01/16/24 01/16/24 Unknown History docusate sodium 100 mg tablet 100 mg PO BID 01/16/24 01/16/24 Unknown History oxycodone 5 mg tablet 2.5 mg PO Q6H PRN Pain, 01/16/24 01/16/24 Unknown History Moderate(Pain Scale 4-6) oxycodone 5 mg tablet 5 mg PO Q6H PRN Pain (Scale Score 01/16/24 01/16/24 Unknown History 7-10) polyethylene glycol 3350 17 17 g PO DAILY 01/16/24 01/16/24 Unknown History gram/dose oral powder sennosides 8.6 mg tablet (senna) 17.2 mg PO BEDTIME 01/16/24 01/16/24 Unknown History Physical Exam 2 Vital Signs: Vital Signs: Last Vital Signs Temp 99.3 F 01/17/24 07:56 Pulse 89 01/17/24 07:56 Resp 18 01/17/24 07:56 BP 111/52 L 01/17/24 07:56 Pulse Ox 96 01/17/24 07:43 O2 Del Method Room Air 01/17/24 07:43 BMI result Body Mass Index 39.1 Const: General: cooperative, healthy appearing and comfortable O rientation/consciousness: oriented to person, oriented to place and oriented to time HEENT: Head: Yes normal to inspection Neck: Neck: Yes normal visual inspection Carotids: no bruits Chest: Chest palpation & inspection: normal inspection of the chest Resp: Effort & Inspection: normal respiratory effort and able to speak in complete sentences Auscultation: clear to auscultation bilaterally, no crackles, no rales, no rhonchi and no wheezes Cardio: Other: Bilateral DP signals Rate: regular rate Rhythm: regular rhythm Heart sounds: S1 normal heart sound present and S2 normal heart sound present Bruits: no carotid bruits GI: Inspection: Yes normal to inspection Skin: Wounds: no wounds Hair: normal Neuro: General: oriented to person, oriented to place and oriented to time Cranial nerves: Yes CN's II-XII intact bilaterally and Yes Normal hearing present Cognition (Neuro): normal cognition Motor exam (neuro): 5/5 motor strength present throughout Extrem: Other: venous exam: +1 edema Left knee incision well healing. Significant surrounding hematoma. General: No clubbing, No cyanosis and Yes edema Psych: Appearance: grossly normal Mental Status: mental status grossly normal Speech and movement: Normal speech and movement present Results Labs 01/17/24 05:19 01/17/24 05:19 Labs: Abnormal lab results 01/16/24 01/16/24 01/16/24 Range/Units 12:17 12:18 12:20 WBC 16.1 H (4.8-10.8) X10*3/uL RBC 1.43 L D (4.20-5.50) X10*6/uL Hgb 4.6 L* D (12.0-16.0) g/dl Hct 14.3 L* D (37.0-47.0) % MCV 100.0 H (80.0-98.0) fL RDW (11.0-16.0) % Immature Gran % (Auto) 1.2 H (0.0-0.4) % Neut % (Auto) 81.4 H (45-73) % Lymph % (Auto) 11.1 L (20-40) % Abs Immat Gran (auto) 0.20 H (0.00-0.03) X10*3/uL Absolute Neuts (auto) 13.1 H (2.0-8.3) x10*3/uL Absolute Nucleated RBC 0.110 H (0.0-0.012) X10*3/uL Nucleated RBC % (auto) 0.7 H (0.0-0.2) /100WBC APTT 25.4 L (26.0-36.8) SEC Anion Gap (12-20) BUN 36 H (9-16) mg/dL Calcium 8.1 L (8.4-10.2) mg/dL Total Bilirubin 1.3 H (0.0-1.0) mg/dL AST 119 H (5-31) U/L ALT 107 H (0-31) U/L Troponin I High Sens 65.6 H* (<3.5-17.0) ng/L B-Natriuretic Peptide 124 H (<100) pg/mL Total Protein 5.3 L (6.5-8.0) g/dL Albumin 2.6 L (3.5-5.0) g/dL Crossmatch See Detail 01/16/24 01/17/24 01/17/24 Range/Units 16:19 00:39 05:19 WBC 14.6 H (4.8-10.8) X10*3/uL RBC 2.37 L D (4.20-5.50) X10*6/uL Hgb 7.2 L D 7.4 L (12.0-16.0) g/dl Hct 21.5 L D 22.7 L (37.0-47.0) % MCV (80.0-98.0) fL RDW 16.4 H (11.0-16.0) % Immature Gran % (Auto) 2.3 H (0.0-0.4) % Neut % (Auto) 77.9 H (45-73) % Lymph % (Auto) 11.5 L (20-40) % Abs Immat Gran (auto) 0.34 H (0.00-0.03) X10*3/uL Absolute Neuts (auto) 11.3 H (2.0-8.3) x10*3/uL Absolute Nucleated RBC 0.270 H (0.0-0.012) X10*3/uL Nucleated RBC % (auto) 1.9 H (0.0-0.2) /100WBC APTT (26.0-36.8) SEC Anion Gap 11 L (12-20) BUN 30 H (9-16) mg/dL Calcium 8.3 L (8.4-10.2) mg/dL Total Bilirubin 1.3 H (0.0-1.0) mg/dL AST 115 H (5-31) U/L ALT 130 H (0-31) U/L Troponin I High Sens 74.1 H* (<3.5-17.0) ng/L B-Natriuretic Peptide (<100) pg/mL Total Protein 5.3 L (6.5-8.0) g/dL Albumin 2.7 L (3.5-5.0) g/dL Crossmatch Short CBC 01/16/24 01/17/24 01/17/24 Range/Units 12:17 00:39 05:19 WBC 16.1 H 14.6 H (4.8-10.8) X10*3/uL Hgb 4.6 L* D 7.2 L D 7.4 L (12.0-16.0) g/dl Hct 14.3 L* D 21.5 L D 22.7 L (37.0-47.0) % Plt Count 304 D 285 (160-400) X10*3/uL BMP 01/16/24 01/17/24 12:18 05:19 Sodium 138 139 Potassium 4.5 3.9 Chloride 108 108 Carbon Dioxide 22 24 BUN 36 H 30 H Creatinine 0.71 0.56 Calcium 8.1 L 8.3 L Liver Function 01/16/24 01/17/24 Range/Units 12:18 05:19 Total Bilirubin 1.3 H 1.3 H (0.0-1.0) mg/dL Direct Bilirubin 0.5 0.5 (0.0-0.5) mg/dL AST 119 H 115 H (5-31) U/L ALT 107 H 130 H (0-31) U/L Alkaline Phosphatase 91 88 (39-117) U/L Albumin 2.6 L 2.7 L (3.5-5.0) g/dL Urine 01/16/24 Range/Units 14:57 Urine Color Yellow Urine Appearance Clear Urine pH 6.5 (5.0-9.0) Ur Specific Goodwin 1.020 (1.005-1.025) Urine Protein Negative (Neg-Trace) mg/dL Urine Glucose (UA) Negative (Negative) mg/dL All other labs normal. Imaging Additional studies: Arterial ultrasound demonstrated monophasic flow throughout the left lower extremity. Profundus femoris and SFA were occluded. They did have reconstitution at the popliteal with no flow in the tibials. Assessment and Plan (1) PAD (peripheral artery disease): Status: Acute Plan In short it does not appear that there is a arterial vessel injury to any of the large named vessels. She does have a history significant for peripheral vascular disease in it does appear at some point she did receive an SFA stent. At the current time would continue to manage medically with transfusions as required. We will follow on an as-needed basis. Thank you for allowing us to assist in her care. If there are any questions or concerns please do not hesitate to contact us. Procedures Date of Service Date of Service: 01/17/24
--- NOTE | 2024-01-17 08:03 | PC.NURSE ---
Alert and responsive, legs repositioned per patients request. ate well for breakfast. Blood transfusing at 75mls/hr , tolerating well
--- NOTE | 2024-01-17 09:08 | PC.NURSE ---
this nurse obtained report at 9am and pt was assigned a bed immediately, this nurse has not assessed or met this patient, admission report is being put in from prior nursing notes.
[2024-01-17] MEDS: oxyCODONE HCl Immed Release 5 MG TABLET PO ×2 (10:01→16:57)
[2024-01-17] MEDS: Acetaminophen 325 MG TABLET 650 MG PO ×2 (10:01→21:10)
--- NOTE | 2024-01-17 10:28 | MHC.CM.PN ---
IMM 01/17/24 delivered verbally via phone to HCP. Patient sent from [facility] 4[facility]. She will return at discharge, to continue short term rehab. She lives with her son Horacio. 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 Ronnell Hyman HCP [phone] she provided info for this assessment. [facility] A referral has been sent to [facility].
[2024-01-17] MEDS: Ferrous Sulfate 324 MG TABLET.DR PO (10:30)
[2024-01-17] MEDS: Magnesium Oxide 400 MG TABLET PO (10:30)
[2024-01-17] MEDS: Mirabegron 50 MG TAB.ER.24H PO (10:30)
[2024-01-17] MEDS: Docusate Sodium 100 MG CAPSULE PO ×2 (10:31→21:10)
[2024-01-17] MEDS: Morphine Sulfate 2 MG/ML CARTRIDGE 1 MG IVPUSH (10:31)
[2024-01-17] MEDS: Memantine HCl 5 MG TABLET PO ×2 (10:31→21:10)
[2024-01-17] MEDS: polyethylene glycoL 3350 17 GM POWD.PACK PO (10:32)
[2024-01-17] MEDS: Metoprolol Succinate ER 25 MG TAB.ER.24H PO (11:03)
--- NOTE | 2024-01-17 11:07 | MHC.SL.SWA ---
Speech Pathologist Impression: Risk of aspiration, oral phase dysphagia Risk of Aspiration Due to: Lethargy History of Pneumonia Reduced Cognition Dysphasia Diet Status:UPGRADE FROM NDD1 to NDD3 Liquid Consistency and Strategies for Safe Swallow: Liquid Intake Recommendation: Thin Liquid Intake Strategies: Small Sips Solid Food Consistency: Dietary Recommendations: Chopped/Advanced (NDD3) Additional Modifications to Solid Foods: Patient was seen for a bedside dysphagia evaluation this morning in [facility]. She complained of leg pain, but was participatory in this exam. She does demonstrate some confusion secondary to her dx of dementia. Note mild oral phase dysphagia characterized by prolonged period of mastication, pocketing, and multiple swallow attempts to clear the oral cavity. Oral residuals were cleared with additional bites of puree or sips of liquid. Swallow was mildly delayed. No overt s/s of aspiration with PO intake. Recommend UPGRADE from PUREED diet to CHOPPED/ADVANCED (NDD3) with THIN liquids, pills WHOLE in LIQUID. Patient will require total 1:1 assistance and aspiration precautions. Oral Medication Intake: Whole with Liquid Please contact the pharmacy regarding appropriate crushable or liquid drug formulations that are available whenever modified delivery is recommended. Compensatory Strategies and Precautions to be Taken for Safe Swallow: Sitting Upright (90 deg) Liquids from Cup Liquids from Straw Small Bites and Sips Alternate Liquids/Solids Rate of Ingestion Change Oral Check Avoid Specific Foods Supervision While Eating and Drinking for Safe Swallow: Total Assistance (1:1) Swallowing Recommended Treatments: Compens. Strategy Educat. Recommendation for Speech: Inpatient Speech Therapy Comment: Frequency/Duration: M-F PRN [employer]ian Blind Installer Clinican/Clinical Fellow: Yes: Tawnya Raymond Supervisory Statement: I have reviewed and agree with the student/clinical fellow's documentation: Yes Speech Language Pathologist: Fabby Vera M.A., CCC-LUMBER BUYER
[2024-01-17] MEDS: Metoprolol Tartrate 5 MG/5 ML VIAL IVPUSH ×2 (12:23→14:14)
--- NOTE | 2024-01-17 13:27 | HO.PM.IMPN ---
Subjective Subjective Date of Service: 01/17/24 Interval History: seen and examined this morning follow up for anemia, pneumonia much more awake and alert this morning. confused Review of Systems Review of Systems: Yes all other systems are reviewed and are negative Constitutional Constitutional: Denies chills and Denies fever(s) Cardiovascular Cardiovascular: Denies chest pain, Denies palpitations and Denies dyspnea Respiratory Respiratory: Denies cough and Denies dyspnea Gastrointestinal Gastrointestinal: Denies abdominal pain Neurologic Neurologic: Reports confusion Psychiatric Psychiatric: Reports confusion Endocrine Endocrine: Denies palpitations Physical Exam Vital Signs: Vital Signs: Last Vital Signs Temp 97.5 F 01/17/24 12:37 Pulse 122 H 01/17/24 12:37 Resp 18 01/17/24 12:37 BP 128/79 01/17/24 12:37 Pulse Ox 97 01/17/24 11:02 O2 Del Method Room Air 01/17/24 11:02 BMI result Body Mass Index 39.1 Const: Other: awake and alert General: comfortable, no acute distress and confusion Nutritional Appearance: obese Orientation/consciousness: confusion Resp: Effort & Inspection: normal respiratory effort, able to speak in complete sentences, no respiratory distress and no use of accessory muscles Cardio: Rate: regular rate GI: Inspection: No distended Palpation (GI): Soft to palpation Neuro: Other: difficult to assess, sleepy, confused General: confusion Extrem: Other: left leg with significant swelling; no evidence of compartment syndrome; NVI Objective Data Active Medications Acetaminophen (Acetaminophen 325 Mg Tablet) 650 mg PO Q6H PRN PRN Reason: Pain, Mild (Pain Scale 1-3) Last Admin: 01/17/24 10:01 Dose: 650 mg Documented By: ALMA DELIA Docusate Sodium (Docusate Sodium 100 Mg Capsule) 100 mg PO BID [facility] Last Admin: 01/17/24 10:31 Dose: 100 mg Documented By: ALMA DELIA Ferrous Sulfate (Ferrous Sulfate 324 Mg Tablet.) 324 mg PO DAILY [facility] Last Admin: 01/17/24 10:30 Dose: 324 mg Documented By: ALMA DELIA Ampicillin Sodium/Sulbactam (Sodium 1.5 gm/ Sodium Chloride) 100 mls @ 200 mls/hr IV Q6H [facility] Last Infusion: 01/17/24 13:17 Dose: Infused Documented By: ALMA DELIA Magnesium Oxide (Magnesium Oxide 400 Mg Tablet) 400 mg PO DAILY [facility] Last Admin: 01/17/24 10:30 Dose: 400 mg Documented By: ALMA DELIA Memantine (Memantine Hcl 5 Mg Tablet) 5 mg PO BID [facility] Last Admin: 01/17/24 10:31 Dose: 5 mg Documented By: ALMA DELIA Metoprolol Succinate (Metoprolol Succinate Er 25 Mg Tab.Er.24h) 25 mg PO DAILY [facility]; Protocol Last Admin: 01/17/24 11:03 Dose: 25 mg Documented By: ALMA DELIA Mirabegron (Mirabegron 50 Mg Tab.Er.24h) 50 mg PO DAILY [facility] Last Admin: 01/17/24 10:30 Dose: 50 mg Documented By: ALMA DELIA Ondansetron HCl (Ondansetron Hcl 4 Mg/2 Ml Vial) 4 mg IVPUSH Q8H PRN PRN Reason: Nausea and Vomiting Last Admin: 01/16/24 21:30 Dose: 4 mg Documented By: FRANCK Oxycodone HCl (Oxycodone Hcl Immed Release 5 Mg Tablet) 5 mg PO Q6H PRN PRN Reason: Pain (Scale Score 7-10) Last Admin: 01/17/24 10:01 Dose: 5 mg Documented By: ALMA DELIA Polyethylene Glycol (Polyethylene Glycol 3350 17 Gm Powd.Pack) 17 gm PO DAILY [facility] Last Admin: 01/17/24 10:32 Dose: 17 gm Documented By: ALMA DELIA Senna (Sennosides 8.6 Mg Tablet) 17.2 mg PO BEDTIME [facility] Last Admin: 01/16/24 21:31 Dose: 17.2 mg Documented By: FRANCK Sodium Chloride (0.9 % Sodium Chloride Flush 3 Ml Syringe) 3 ml IVFLUSH QSHIFT [facility] Last Admin: 01/17/24 08:05 Dose: 3 ml Documented By: AUDREY Labs 01/17/24 05:19 01/17/24 05:19 Labs: Laboratory Results - last 24 hr 01/16/24 01/16/24 01/16/24 12:17 12:20 13:47 MCV MCH MCHC RDW Plt Count MPV Immature Gran % (Auto) Neut % (Auto) Lymph % (Auto) [place] % (Auto) Eos % (Auto) Baso % (Auto) Lymph # (Auto) [place] # (Auto) Eos # (Auto) Baso # (Auto) Abs Immat Gran (auto) Absolute Neuts (auto) Absolute Nucleated RBC Nucleated RBC % (auto) Smear Path Review Anion Gap Estim Creat Clear Calc Estimated GFR Random Glucose Calcium Total Bilirubin Direct Bilirubin AST ALT Alkaline Phosphatase Troponin I High Sens Total Protein Albumin Urine Color Urine Appearance Urine pH Ur Specific [place] Urine Protein Urine Glucose (UA) Urine Ketones Urine Blood Urine Nitrite Ur Leukocyte Esterase Urine Osmolality Ur Random Sodium Influenza Type A (PCR) NEGATIVE Influenza Type B (PCR) NEGATIVE RSV RNA Qual (PCR) NEGATIVE SARS-CoV-2 RNA (RT-PCR) NEGATIVE Blood Type A Positive Antibody Screen NEGATIVE Crossmatch See Detail 01/16/24 01/16/24 01/17/24 14:57 16:19 05:19 MCV 95.8 MCH 31.2 MCHC 32.6 RDW 16.4 H Plt Count 285 MPV 11.0 Immature Gran % (Auto) 2.3 H Neut % (Auto) 77.9 H Lymph % (Auto) 11.5 L [place] % (Auto) 7.8 Eos % (Auto) 0.2 Baso % (Auto) 0.3 Lymph # (Auto) 1.7 [place] # (Auto) 1.1 Eos # (Auto) 0.0 Baso # (Auto) 0.0 Abs Immat Gran (auto) 0.34 H Absolute Neuts (auto) 11.3 H Absolute Nucleated RBC 0.270 H Nucleated RBC % (auto) 1.9 H Smear Path Review Anion Gap 11 L Estim Creat Clear Calc 89.1 Estimated GFR > 60 Random Glucose 103 Calcium 8.3 L Total Bilirubin 1.3 H Direct Bilirubin 0.5 AST 115 H ALT 130 H Alkaline Phosphatase 88 Troponin I High Sens 74.1 H* Total Protein 5.3 L Albumin 2.7 L Urine Color Yellow Urine Appearance Clear Urine pH 6.5 Ur Specific [place] 1.020 Urine Protein Negative Urine Glucose (UA) Negative Urine Ketones 40 Urine Blood Negative Urine Nitrite Negative Ur Leukocyte Esterase Negative Urine Osmolality Cancelled Ur Random Sodium Cancelled Influenza Type A (PCR) Influenza Type B (PCR) RSV RNA Qual (PCR) SARS-CoV-2 RNA (RT-PCR) Blood Type Antibody Screen Crossmatch Assessment and Plan (1) Multifocal pneumonia: Status: Acute (2) ABLA (acute blood loss anemia): Status: Acute Plan This is an 83 yo female with PMH of PAF on eliquis, HLD, HTN, s/p IMN of L femur for periprosthetic fracture on 01/07 - admitted and treated here 01/05-01/11 had acute blood anemia post hemoglobin 9.6 - 6.9 was transfused 2UPRBC. Was discharged to [facility] and returns with recurrent anemia found to have multifocal pneumonia acute on chronic anemia due to blood loss from hematoma due to recent surgery and AC with Eliquis recently IMN 01/07 for femur fracture and on eliquis for afib/dvt ppx following surgery CT left leg with subq contusion/hematoma in the anterior subcutaneous soft tissues and anterior muscle compartment of the left thigh 2U blood 01/15 with appropriate rise, but still low, will transfuse additional unit 01/16 seen by ortho, no surgical intervention required at this time seen by vascular surgery, no evidence of arterial vessel injury to any of the large vessels stool occult negative hold Eliquis follow CBC and transfuse prn Multifocal pneumonia with possible sepsis white count trending down, afebrile procalcitonin 1.32 one episode of hypotension could be from anemia. blood pressure has improved and is stable. Concern for aspiration seen by speech, diet upgraded to NDD3, with thin liqs; 1:1 feeds aspiration precautions blood cultures pending Paroxysmal atrial fibrillation now with RVR metoprolol initially held for soft bp, bp improved and BB resumed; still elevated, give IV lopressor 5 mg - will monitor HR Hold Eliquis for anemia/hematoma toxic metabolic encephalopathy on a background of multifactorial cognitive impairment likely multifactorial due to acute illness, acute anemia, recent surgery, rehab stay and recent hospitalization seen by psych last hospitalization, does NOT have capacity to make medical decisions - HCP is daughter Yenni continue nam[place] hold gabapentin for now elevated trops likely due to demand related to anemia trops have remained flat no chest pain elevated LFTS hold statin minimize tylenol follow liver function left femur fracture s/p IMN 01/07 continue oxy prn for pain, limit use to avoid sedation continue bowel regimen HTN metoprolol resumed. bp controlled Morbid obesity bmi 39.1 recommend weight loss code status- full code attending - dr. mcbride requires ongoing inpatient stay due to acute blood loss anemia requiring blood transfusion, multifocal pneumonia requiring IV antibiotics, specialist evaluation, and close monitoring of blood pressure given her age and comorbidities can not be done in the lesser acute setting. Quality Stroke Does the patient have a stroke diagnosis?: No VTE Prior VTE?: No VTE Risk Level:: Medical - moderate - high VTE Device Contraindication: N/A - Device Ordered VTE Drug Contraindication: Treatment Not Indicated
[2024-01-17] MEDS: oxyCODONE HCl Immed Release 5 MG TABLET 2.5 MG PO (14:14)
[2024-01-17] MEDS: Gabapentin 100 MG CAPSULE PO ×2 (14:14→21:10)
[2024-01-17 18:37] LABS: Hematocrit 23.5 % (37.0-47.0)
[2024-01-17] MEDS: Sennosides 8.6 MG TABLET 17.2 MG PO (21:10)
[2024-01-18] VITALS (10 sets, daily range): BP systolic 116–153; BP diastolic 53–72; PULSE 77–123; RESP 17–20; TEMP 36.1–37.7; O2SAT 92–95
[2024-01-18] MEDS: Ampicillin Sodium/Sulbactam Na 1.5 GM in 0.9 % Sodium Chloride 100 ML IV ×3 (05:13→17:54)
[2024-01-18] MEDS: Morphine Sulfate 2 MG/ML CARTRIDGE 1 MG IVPUSH (06:15)
--- NOTE | 2024-01-18 06:49 | PM.EVENT ---
Event Note Date of Service: 01/18/24 Event Note: Patient complaining of leg pain and went into AFib with RVR. Heart rate in the 150s. Will order 1 mg IV morphine and IV Lopressor 5 mg. Continue to monitor on telemetry. Defer anticoagulation as patient with leg hematoma. Time Spent With Patient Time: Total time managing care of this patient today ____ minutes.
[2024-01-18 07:04] LABS: MANUAL DIFF FLAG NO
--- NOTE | 2024-01-18 07:18 | P.PNIM_ITS ---
Subjective Subjective Date of Service: 01/18/24 Interval History: seen and examined this morning follow up for anemia, pneumonia awake and alert this morning. confused. No complaints Overnight, afib with rvr rate 150s. Given iv lopressor 5mg x1 and iv morphine Review of Systems Review of Systems: Yes all other systems are reviewed and are negative Constitutional Constitutional: Denies chills and Denies fever(s) Cardiovascular Cardiovascular: Denies chest pain, Denies palpitations and Denies dyspnea Respiratory Respiratory: Denies cough and Denies dyspnea Gastrointestinal Gastrointestinal: Denies abdominal pain Neurologic Neurologic: Reports confusion Psychiatric Psychiatric: Reports confusion Endocrine Endocrine: Denies palpitations Physical Exam 2 Vital Signs: Vital Signs: Last Vital Signs Temp 97.3 F 01/18/24 03:27 Pulse 92 01/18/24 07:11 Resp 18 01/18/24 07:11 BP 121/59 L 01/18/24 03:27 Pulse Ox 93 01/18/24 03:27 O2 Del Method Room Air 01/18/24 03:27 BMI result Body Mass Index 39.1 Constitutional - Awake and Alert, No apparent distress Eyes - PERRLA, EOMI Cardiovascular - S1S2, RRR, No edema Respiratory - Normal lung expansion, Normal respiratory effort, No respiratory distress, CTA bilaterally Gastrointestinal - NT / ND; +BS; No rebound or guarding Extremities - no calf tenderness bilaterally, +swelling and warmth left thigh, no swelling distal extremity Skin - Warm/Dry Neurological - Alert & oriented to self, confused. 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, but other [place] speaking nonsensically Psychological - Appropriate affect Const: General: confusion Orientation/consciousness: confusion Neuro: General: confusion Objective Data Active Medications Acetaminophen (Acetaminophen 325 Mg Tablet) 650 mg PO Q6H PRN PRN Reason: Pain, Mild (Pain Scale 1-3) Last Admin: 01/17/24 21:10 Dose: 650 mg Documented By: SHAYAN Docusate Sodium (Docusate Sodium 100 Mg Capsule) 100 mg PO BID [facility] Last Admin: 01/17/24 21:10 Dose: 100 mg Documented By: SHAYAN Ferrous Sulfate (Ferrous Sulfate 324 Mg Tablet.) 324 mg PO DAILY [facility] Last Admin: 01/17/24 10:30 Dose: 324 mg Documented By: ALMA DELIA Gabapentin (Gabapentin 100 Mg Capsule) 100 mg PO TID [facility] Last Admin: 01/17/24 21:10 Dose: 100 mg Documented By: SHAYAN Ampicillin Sodium/Sulbactam (Sodium 1.5 gm/ Sodium Chloride) 100 mls @ 200 mls/hr IV Q6H [facility] Last Admin: 01/18/24 05:13 Dose: 200 mls/hr Documented By: SHAYAN Magnesium Oxide (Magnesium Oxide 400 Mg Tablet) 400 mg PO DAILY [facility] Last Admin: 01/17/24 10:30 Dose: 400 mg Documented By: ALMA DELIA Memantine (Memantine Hcl 5 Mg Tablet) 5 mg PO BID [facility] Last Admin: 01/17/24 21:10 Dose: 5 mg Documented By: SHAYAN Metoprolol Succinate (Metoprolol Succinate Er 25 Mg Tab.Er.24h) 25 mg PO DAILY [facility]; Protocol Last Admin: 01/17/24 11:03 Dose: 25 mg Documented By: ALMA DELIA Mirabegron (Mirabegron 50 Mg Tab.Er.24h) 50 mg PO DAILY [facility] Last Admin: 01/17/24 10:30 Dose: 50 mg Documented By: ALMA DELIA Ondansetron HCl (Ondansetron Hcl 4 Mg/2 Ml Vial) 4 mg IVPUSH Q8H PRN PRN Reason: Nausea and Vomiting Last Admin: 01/16/24 21:30 Dose: 4 mg Documented By: FRANCK Oxycodone HCl (Oxycodone Hcl Immed Release 5 Mg Tablet) 5 mg PO Q6H PRN PRN Reason: Pain (Scale Score 7-10) Last Admin: 01/17/24 16:57 Dose: 5 mg Documented By: BRIANNA Oxycodone HCl (Oxycodone Hcl Immed Release 5 Mg Tablet) 2.5 mg PO BID PRN PRN Reason: Pain, Moderate(Pain Scale 4-6) Last Admin: 01/17/24 14:14 Dose: 2.5 mg Documented By: ALMA DELIA Polyethylene Glycol (Polyethylene Glycol 3350 17 Gm Powd.Pack) 17 gm PO DAILY [facility] Last Admin: 01/17/24 10:32 Dose: 17 gm Documented By: ALMA DELIA Senna (Sennosides 8.6 Mg Tablet) 17.2 mg PO BEDTIME [facility] Last Admin: 01/17/24 21:10 Dose: 17.2 mg Documented By: SHAYAN Sodium Chloride (0.9 % Sodium Chloride Flush 3 Ml Syringe) 3 ml IVFLUSH QSHIFT [facility] Last Admin: 01/17/24 21:11 Dose: 3 ml Documented By: SHAYAN Labs 01/18/24 06:44 01/17/24 05:19 Labs: Laboratory Results - last 24 hr 01/16/24 01/16/24 12:17 12:20 Smear Path Review Blood Type A Positive Antibody Screen NEGATIVE Crossmatch See Detail Microbiology Microbiology Results: Microbiology 01/16/24 13:27 Blood Culture - Preliminary Blood - Venous No growth after 24 hours. 01/16/24 13:09 Blood Culture - Preliminary Blood - Venous No growth after 24 hours. Assessment and Plan (1) Multifocal pneumonia: Status: Acute (2) ABLA (acute blood loss anemia): Status: Acute (3) Hematoma of left lower extremity: Status: Acute Plan This is an 83 yo female with PMH of PAF on eliquis, HLD, HTN, s/p IMN of L femur for periprosthetic fracture on 01/07 - admitted and treated here 01/05-01/11 had acute blood anemia post hemoglobin 9.6 - 6.9 was transfused 2UPRBC. Was discharged to [facility] and returns with recurrent anemia found to have multifocal pneumonia acute on chronic anemia due to blood loss from hematoma due to recent surgery and AC with Eliquis recently IMN 01/07 for femur fracture and on eliquis for afib/dvt ppx following surgery CT left leg with subq contusion/hematoma in the anterior subcutaneous soft tissues and anterior muscle compartment of the left thigh 2U blood 01/15 with appropriate rise, but still low, will transfuse additional unit 01/16. H/H stable 01/17, 7.9/24.8% seen by ortho, no surgical intervention required at this time seen by vascular surgery, no evidence of arterial vessel injury to any of the large vessels stool occult negative hold Eliquis follow CBC and transfuse prn Multifocal pneumonia with possible sepsis white count trending down, afebrile procalcitonin 1.32, trend one episode of hypotension could be from anemia. blood pressure has improved and is stable. Concern for aspiration seen by speech, diet upgraded to NDD3, with thin liqs; 1:1 feeds aspiration precautions blood cultures pending Paroxysmal atrial fibrillation- 01/17 RVR overnight, rate now controlled metoprolol initially held for soft bp, bp improved and BB resumed; received addl lopressor 5mg overnight - will monitor HR on tele continue po metoprolol Hold Eliquis for anemia/hematoma toxic metabolic encephalopathy on a background of multifactorial cognitive impairment likely multifactorial due to acute illness, acute anemia, recent surgery, rehab stay and recent hospitalization Remains confused, no worsening per family, but no improvement. Has history recurrent UTI. Check UA/UC. Check liver panel, BMP, ammonia seen by psych last hospitalization, does NOT have capacity to make medical decisions - HCP is daughter Yenni continue [place] hold gabapentin for now elevated trops likely due to demand related to anemia trops have remained flat no chest pain elevated LFTS hold statin minimize tylenol follow liver function left femur fracture s/p IMN 01/07 continue oxy prn for pain, limit use to avoid sedation continue bowel regimen HTN metoprolol resumed. bp controlled Morbid obesity bmi 39.1 recommend weight loss code status- full code DVT prophylaxis- SCPs requires ongoing inpatient stay due to acute blood loss anemia requiring blood transfusion, multifocal pneumonia requiring IV antibiotics, specialist evaluation, and close monitoring of blood pressure given her age and comorbidities can not be done in the lesser acute setting. Quality Stroke Does the patient have a stroke diagnosis?: No VTE Prior VTE?: No VTE Risk Level:: Medical - moderate - high VTE Device Contraindication: N/A - Device Ordered VTE Drug Contraindication: Treatment Not Indicated
[2024-01-18 07:19] LABS: Basophils Percent Auto 0.3 % (0-2); Eosinophils Absolute Auto 0.1 X10*3/uL (0.0-0.4); Eosinophils Percent Auto 0.5 % (0-4); Hematocrit 24.8 % (37.0-47.0); Hemoglobin 7.9 g/dl (12.0-16.0); Imm Gran Abs Auto 0.34 X10*3/uL (0.00-0.03); Imm Gran Pct Auto 2.6 % (0.0-0.4); Lymphocytes Absolute Auto 2.9 X10*3/uL (1.2-4.9); Lymphocytes Percent Auto 21.5 % (20-40); Mean Corpuscular HGB Conc 31.9 g/dl (31.0-35.0); Mean Corpuscular Volume 97.3 fL (80.0-98.0); Mean Platelet Volume 11.5 fL (9.4-12.3); Monocytes Absolute Auto 1.2 X10*3/uL (0.1-1.2); Monocytes Percent Auto 8.6 % (2-11); Neutrophils Absolute Auto 8.9 x10*3/uL (2.0-8.3); Neutrophils Percent Auto 66.5 % (45-73); Platelet Count 291 X10*3/uL (160-400); Red Blood Count 2.55 X10*6/uL (4.20-5.50); White Blood Count 13.3 X10*3/uL (4.8-10.8)
[2024-01-18] MEDS: Metoprolol Tartrate 5 MG/5 ML VIAL IVPUSH (07:30)
[2024-01-18 07:58] LABS: NRBC Pct Auto 2.1 /100WBC (0.0-0.2)
[2024-01-18] MEDS: Mirabegron 50 MG TAB.ER.24H PO (09:12)
[2024-01-18] MEDS: Ferrous Sulfate 324 MG TABLET.DR PO (09:12)
[2024-01-18] MEDS: Metoprolol Succinate ER 25 MG TAB.ER.24H PO (09:12)
[2024-01-18] MEDS: Magnesium Oxide 400 MG TABLET PO (09:12)
[2024-01-18] MEDS: Gabapentin 100 MG CAPSULE PO ×3 (09:12→22:26)
[2024-01-18] MEDS: 0.9 % Sodium Chloride Flush 3 ML SYRINGE IVFLUSH ×2 (09:13→15:05)
[2024-01-18] MEDS: Memantine HCl 5 MG TABLET PO ×2 (09:13→22:27)
[2024-01-18] MEDS: Docusate Sodium 100 MG CAPSULE PO ×2 (09:13→22:27)
[2024-01-18] MEDS: oxyCODONE HCl Immed Release 5 MG TABLET PO ×2 (09:16→19:34)
[2024-01-18 12:26] LABS: Appearance Urine Cloudy; Color Urine Dark Yellow; Glucose Urine UA Negative (Negative); Leukocyte Esterase Urine Trace (Negative); Nitrite Urine Negative (Negative); PH 5.5 (5.0-9.0); Specific Gravity - Urine >= 1.030 (1.005-1.025); UMIC TRIGGER UACC YES; Urine Blood Negative (Negative); Urine Ketones Trace mg/dL (Negative); Urine Protein Trace mg/dL (Neg-Trace)
[2024-01-18 12:28] LABS: Bacteria Urine None Seen (None Seen); RBC Urine 0-2 /HPF (0-2); Squamous Epithelial Cell Urine 0-2 /HPF (0-2); WBC Urine 0-5 /HPF (0-5)
[2024-01-18 13:27] LABS: Ammonia 25 umol/L (13-55)
[2024-01-18 13:41] LABS: Alanine Aminotransferase 122 U/L (0-31); Albumin Level 2.6 g/dL (3.5-5.0); Alkaline Phosphatase 104 U/L (39-117); Anion Gap 10 (12-20); Aspartate Amino Transferase 83 U/L (5-31); Bilirubin Direct 0.6 mg/dL (0.0-0.5); Bilirubin Total 1.6 mg/dL (0.0-1.0); Blood Urea Nitrogen 23 mg/dL (9-16); Carbon Dioxide 25 mmol/L (22-29); Chloride 109 mmol/L (96-108); Creatinine Clr Calc Pharmacy 95.9; Estimated Glomerular Filt Rate > 60; Glucose Random 113 mg/dL (60-115); Potassium 3.7 mmol/L (3.3-5.1); Sodium 140 mmol/L (135-145); Total Protein 5.2 g/dL (6.5-8.0)
[2024-01-18 13:55] LABS: Procalcitonin 0.37 ng/mL
[2024-01-18] MEDS: Acetaminophen 325 MG TABLET 650 MG PO (22:17)
[2024-01-18] MEDS: Sennosides 8.6 MG TABLET 17.2 MG PO (22:27)
[2024-01-19] VITALS (13 sets, daily range): BP systolic 100–169; BP diastolic 45–64; PULSE 76–144; RESP 12–20; TEMP 36.2–37.6; O2SAT 92–96
[2024-01-19] MEDS: Ampicillin Sodium/Sulbactam Na 1.5 GM in 0.9 % Sodium Chloride 100 ML IV ×5 (00:30→22:55)
[2024-01-19] MEDS: Acetaminophen 325 MG TABLET 650 MG PO ×3 (05:13→21:04)
--- NOTE | 2024-01-19 07:21 | PM.DS ---
DS: Providers Provider Date of admission: 01/16/24 17:36 Primary care physician: Buster Hyde MD Consults: 01/16/24 14:11 Consult to Orthopedics Routine Consulting Provider: [facility] Reason for consultation: recent left IMN - significant swelling and anemia Has provider been notified: No DS: Diagnosis Discharge Diagnosis (1) Multifocal pneumonia: Status: Acute (2) ABLA (acute blood loss anemia): Status: Acute (3) Hematoma of left lower extremity: Status: Acute Physical Exam Vital Signs: Vital Signs: Last Vital Signs Temp 98.8 F 01/19/24 03:30 Pulse 85 01/19/24 05:16 Resp 16 01/19/24 05:16 BP 122/45 L 01/19/24 05:16 Pulse Ox 94 01/19/24 03:30 O2 Del Method Room Air 01/19/24 03:30 BMI result Body Mass Index 39.1 DS: Data Data Completed and Pending Completed studies during hospitalization [Text1]: Procedures Reposition Left Lower Femur with Intramedullary Internal Fixation Device, Percutaneous Approach (01/06/24) Transfusion of Nonautologous Red Blood Cells into Peripheral Vein, Percutaneous Approach (01/06/24) Labs on day of discharge: Laboratory Results - last 24 hr 01/18/24 01/18/24 01/18/24 06:44 12:13 12:53 WBC 13.3 H RBC 2.55 L Hgb 7.9 L Hct 24.8 L MCV 97.3 MCH 31.0 MCHC 31.9 RDW 18.0 H Plt Count 291 MPV 11.5 Immature Gran % (Auto) 2.6 H Neut % (Auto) 66.5 Lymph % (Auto) 21.5 [place] % (Auto) 8.6 Eos % (Auto) 0.5 Baso % (Auto) 0.3 Lymph # (Auto) 2.9 [place] # (Auto) 1.2 Eos # (Auto) 0.1 Baso # (Auto) 0.0 Abs Immat Gran (auto) 0.34 H Absolute Neuts (auto) 8.9 H Absolute Nucleated RBC 0.280 H Nucleated RBC % (auto) 2.1 H Sodium 140 Potassium 3.7 Chloride 109 H Carbon Dioxide 25 Anion Gap 10 L BUN 23 H Creatinine 0.52 Estim Creat Clear Calc 95.9 Estimated GFR > 60 Random Glucose 113 Calcium 8.0 L Total Bilirubin 1.6 H Direct Bilirubin 0.6 H AST 83 H ALT 122 H Alkaline Phosphatase 104 Ammonia 25 Total Protein 5.2 L Albumin 2.6 L Procalcitonin 0.37 Urine Color Dark Yellow Urine Appearance Cloudy Urine pH 5.5 Ur Specific [place] >= 1.030 H Urine Protein Trace Urine Glucose (UA) Negative Urine Ketones Trace Urine Blood Negative Urine Nitrite Negative Ur Leukocyte Esterase Trace H Urine RBC 0-2 Urine WBC 0-5 Ur Squamous Epith Cells 0-2 Urine Bacteria None Seen Hyaline Casts 3-5 Preliminary micro results at discharge 01/16/24 13:27 Blood Culture - Preliminary Blood - Venous No growth after 48 hours. 01/16/24 13:09 Blood Culture - Preliminary Blood - Venous No growth after 48 hours. Discharge Plan Discharge Referrals: Buster Hyde MD [Primary Care Provider] - 1 Week Discharge Medications: No Action atorvastatin 10 mg tablet 10 mg PO BEDTIME lisinopril 10 mg tablet 10 mg PO DAILY Hold Instructions: Resume as blood pressure allows gabapentin 100 mg capsule 100 mg PO TID metoprolol succinate 25 mg tablet extended release 24 hr 25 mg PO DAILY memantine 5 mg tablet 5 mg PO BID cholecalciferol (vitamin D3) 25 mcg (1,000 unit) tablet 25 mcg PO DAILY ferrous sulfate 324 mg (65 mg iron) tablet,delayed release (DR/EC) 324 mg PO DAILY Myrbetriq 50 mg tablet extended release 24 hr 50 mg PO DAILY Eliquis 5 mg tablet 5 mg PO BID magnesium oxide 400 mg magnesium Tablet 400 mg PO DAILY multivitamin Tablet 1 tab PO DAILY sennosides [senna] 8.6 mg Tablet 17.2 mg PO BEDTIME Rx Instructions: HOLD FOR LOOSE STOOL acetaminophen 500 mg Tablet 1,000 mg PO TID polyethylene glycol 3350 17 gram/dose Powder 17 g PO DAILY Rx Instructions: HOLD FOR LOOSE STOOL docusate sodium 100 mg Tablet 100 mg PO BID oxycodone 5 mg Tablet 5 mg PO Q6H PRN (Reason: Pain (Scale Score 7-10)) oxycodone 5 mg tablet 2.5 mg PO Q6H PRN (Reason: Pain, Moderate(Pain Scale 4-6)) Rx Instructions: Partial Fill upon patient request. Print Language: Yakut
[2024-01-19 08:18] LABS: Hematocrit 20.1 % (37.0-47.0); Hemoglobin 6.3 g/dl (12.0-16.0)
--- NOTE | 2024-01-19 08:30 | P.DS_ITS ---
DS: Providers Provider Date of admission: 01/16/24 17:36 Primary care physician: Buster Hyde MD Consults: 01/16/24 14:11 Consult to Orthopedics Routine Consulting Provider: [facility] [place] Orthopedic Surgeons Reason for consultation: recent left IMN - significant swelling and anemia Has provider been notified: No DS: Diagnosis Discharge Diagnosis (1) Multifocal pneumonia: Status: Acute (2) ABLA (acute blood loss anemia): Status: Acute (3) Hematoma of left lower extremity: Status: Acute Physical Exam Vital Signs: Vital Signs: Last Vital Signs Temp 98.5 F 01/19/24 08:00 Pulse 76 01/19/24 08:00 Resp 20 01/19/24 08:00 BP 104/53 L 01/19/24 08:00 Pulse Ox 95 01/19/24 08:00 O2 Del Method Room Air 01/19/24 08:00 BMI result Body Mass Index 39.1 DS: Data Data Completed and Pending Completed studies during hospitalization [Text1]: Procedures Reposition Left Lower Femur with Intramedullary Internal Fixation Device, Percutaneous Approach (01/06/24) Transfusion of Nonautologous Red Blood Cells into Peripheral Vein, Percutaneous Approach (01/06/24) Labs on day of discharge: Laboratory Results - last 24 hr 01/18/24 01/18/24 01/19/24 12:13 12:53 07:24 Hgb 6.3 L* D Hct 20.1 L* Sodium 140 Potassium 3.7 Chloride 109 H Carbon Dioxide 25 Anion Gap 10 L BUN 23 H Creatinine 0.52 Estim Creat Clear Calc 95.9 Estimated GFR > 60 Random Glucose 113 Calcium 8.0 L Total Bilirubin 1.6 H Direct Bilirubin 0.6 H AST 83 H ALT 122 H Alkaline Phosphatase 104 Ammonia 25 Total Protein 5.2 L Albumin 2.6 L Procalcitonin 0.37 Urine Color Dark Yellow Urine Appearance Cloudy Urine pH 5.5 Ur Specific [place] >= 1.030 H Urine Protein Trace Urine Glucose (UA) Negative Urine Ketones Trace Urine Blood Negative Urine Nitrite Negative Ur Leukocyte Esterase Trace H Urine RBC 0-2 Urine WBC 0-5 Ur Squamous Epith Cells 0-2 Urine Bacteria None Seen Hyaline Casts 3-5 Preliminary micro results at discharge 01/16/24 13:27 Blood Culture - Preliminary Blood - Venous No growth after 48 hours. 01/16/24 13:09 Blood Culture - Preliminary Blood - Venous No growth after 48 hours. Discharge Plan Discharge Referrals: Busetr Hyde MD [Primary Care Provider] - 1 Week Discharge Medications: No Action atorvastatin 10 mg tablet 10 mg PO BEDTIME lisinopril 10 mg tablet 10 mg PO DAILY Hold Instructions: Resume as blood pressure allows gabapentin 100 mg capsule 100 mg PO TID metoprolol succinate 25 mg tablet extended release 24 hr 25 mg PO DAILY memantine 5 mg tablet 5 mg PO BID cholecalciferol (vitamin D3) 25 mcg (1,000 unit) tablet 25 mcg PO DAILY ferrous sulfate 324 mg (65 mg iron) tablet,delayed release (DR/EC) 324 mg PO DAILY Myrbetriq 50 mg tablet extended release 24 hr 50 mg PO DAILY Eliquis 5 mg tablet 5 mg PO BID magnesium oxide 400 mg magnesium Tablet 400 mg PO DAILY multivitamin Tablet 1 tab PO DAILY sennosides [senna] 8.6 mg Tablet 17.2 mg PO BEDTIME Rx Instructions: HOLD FOR LOOSE STOOL acetaminophen 500 mg Tablet 1,000 mg PO TID polyethylene glycol 3350 17 gram/dose Powder 17 g PO DAILY Rx Instructions: HOLD FOR LOOSE STOOL docusate sodium 100 mg Tablet 100 mg PO BID oxycodone 5 mg Tablet 5 mg PO Q6H PRN (Reason: Pain (Scale Score 7-10)) oxycodone 5 mg tablet 2.5 mg PO Q6H PRN (Reason: Pain, Moderate(Pain Scale 4-6)) Rx Instructions: Partial Fill upon patient request. Print Language: Tamazight
[2024-01-19] MEDS: Ferrous Sulfate 324 MG TABLET.DR PO (09:49)
[2024-01-19] MEDS: Mirabegron 50 MG TAB.ER.24H PO (09:49)
[2024-01-19] MEDS: Gabapentin 100 MG CAPSULE PO ×3 (09:49→21:03)
[2024-01-19] MEDS: Magnesium Oxide 400 MG TABLET PO (09:49)
[2024-01-19] MEDS: oxyCODONE HCl Immed Release 5 MG TABLET PO ×2 (09:49→21:04)
[2024-01-19] MEDS: Metoprolol Succinate ER 25 MG TAB.ER.24H PO (09:49)
[2024-01-19] MEDS: Memantine HCl 5 MG TABLET PO ×2 (09:50→21:03)
[2024-01-19] MEDS: Docusate Sodium 100 MG CAPSULE PO (09:50)
[2024-01-19] MEDS: 0.9 % Sodium Chloride Flush 3 ML SYRINGE IVFLUSH ×3 (09:52→21:05)
--- NOTE | 2024-01-19 11:58 | P.PNIM_ITS ---
Subjective Subjective Date of Service: 01/19/24 Interval History: seen and examined this morning follow up for anemia, pneumonia awake and alert this morning. confused. No overnight events. Reports pain but unable to localize H/H 6.3/20.1% (yesterday 7.9/24.8%) Review of Systems Review of Systems: Yes all other systems are reviewed and are negative Constitutional Constitutional: Denies chills and Denies fever(s) Cardiovascular Cardiovascular: Denies chest pain, Denies palpitations and Denies dyspnea Respiratory Respiratory: Denies cough and Denies dyspnea Gastrointestinal Gastrointestinal: Denies abdominal pain Endocrine Endocrine: Denies palpitations Physical Exam 2 Vital Signs: Vital Signs: Last Vital Signs Temp 99.0 F 01/19/24 09:09 Pulse 90 01/19/24 09:09 Resp 18 01/19/24 09:09 BP 123/56 L 01/19/24 09:09 Pulse Ox 95 01/19/24 08:00 O2 Del Method Room Air 01/19/24 08:00 BMI result Body Mass Index 39.1 Constitutional - Awake and Alert, No apparent distress Eyes - PERRLA, EOMI Cardiovascular - S1S2, RRR, No edema Respiratory - Normal lung expansion, Normal respiratory effort, No respiratory distress, CTA bilaterally Gastrointestinal - NT / ND; +BS; No rebound or guarding Extremities - no calf tenderness bilaterally, +swelling and warmth left thigh, no swelling distal extremity Skin - Warm/Dry Neurological - Alert & oriented to self, confused. senior living memory in tact= Psychological - Appropriate affect Objective Data Active Medications Acetaminophen (Acetaminophen 325 Mg Tablet) 650 mg PO Q6H PRN PRN Reason: Pain, Mild (Pain Scale 1-3) Last Admin: 01/19/24 05:13 Dose: 650 mg Documented By: SHAYAN Docusate Sodium (Docusate Sodium 100 Mg Capsule) 100 mg PO BID [facility] Last Admin: 01/19/24 09:50 Dose: 100 mg Documented By: SWAPNIL Ferrous Sulfate (Ferrous Sulfate 324 Mg Tablet.) 324 mg PO DAILY [facility] Last Admin: 01/19/24 09:49 Dose: 324 mg Documented By: SWAPNIL Gabapentin (Gabapentin 100 Mg Capsule) 100 mg PO TID [facility] Last Admin: 01/19/24 09:49 Dose: 100 mg Documented By: SWAPNIL Ampicillin Sodium/Sulbactam (Sodium 1.5 gm/ Sodium Chloride) 100 mls @ 200 mls/hr IV Q6H [facility] Last Infusion: 01/19/24 05:58 Dose: Infused Documented By: SHAYAN Magnesium Oxide (Magnesium Oxide 400 Mg Tablet) 400 mg PO DAILY [facility] Last Admin: 01/19/24 09:49 Dose: 400 mg Documented By: SWAPNIL Memantine (Memantine Hcl 5 Mg Tablet) 5 mg PO BID [facility] Last Admin: 01/19/24 09:50 Dose: 5 mg Documented By: SWAPNIL Metoprolol Succinate (Metoprolol Succinate Er 25 Mg Tab.Er.24h) 25 mg PO DAILY [facility]; Protocol Last Admin: 01/19/24 09:49 Dose: 25 mg Documented By: SWAPNIL Mirabegron (Mirabegron 50 Mg Tab.Er.24h) 50 mg PO DAILY [facility] Last Admin: 01/19/24 09:49 Dose: 50 mg Documented By: SWAPNIL Ondansetron HCl (Ondansetron Hcl 4 Mg/2 Ml Vial) 4 mg IVPUSH Q8H PRN PRN Reason: Nausea and Vomiting Last Admin: 01/16/24 21:30 Dose: 4 mg Documented By: FRANCK Oxycodone HCl (Oxycodone Hcl Immed Release 5 Mg Tablet) 5 mg PO Q6H PRN PRN Reason: Pain (Scale Score 7-10) Last Admin: 01/19/24 09:49 Dose: 5 mg Documented By: SWAPNIL Oxycodone HCl (Oxycodone Hcl Immed Release 5 Mg Tablet) 2.5 mg PO BID PRN PRN Reason: Pain, Moderate(Pain Scale 4-6) Last Admin: 01/17/24 14:14 Dose: 2.5 mg Documented By: ALMA DELIA Polyethylene Glycol (Polyethylene Glycol 3350 17 Gm Powd.Pack) 17 gm PO DAILY [facility] Last Admin: 01/19/24 10:39 Dose: Not Given Documented By: SWAPNIL Non-Admin Reason: loose stool Senna (Sennosides 8.6 Mg Tablet) 17.2 mg PO BEDTIME [facility] Last Admin: 01/18/24 22:27 Dose: 17.2 mg Documented By: SHAYAN Sodium Chloride (0.9 % Sodium Chloride Flush 3 Ml Syringe) 3 ml IVFLUSH QSHIFT MARKEL Last Admin: 01/19/24 09:52 Dose: 3 ml Documented By: SWAPNIL Labs 01/19/24 07:24 01/18/24 12:53 Labs: Laboratory Results - last 24 hr 01/16/24 01/18/24 01/18/24 12:20 12:13 12:53 Anion Gap 10 L Estim Creat Clear Calc 95.9 Estimated GFR > 60 Random Glucose 113 Calcium 8.0 L Total Bilirubin 1.6 H Direct Bilirubin 0.6 H AST 83 H ALT 122 H Alkaline Phosphatase 104 Ammonia 25 Total Protein 5.2 L Albumin 2.6 L Procalcitonin 0.37 Urine Color Dark Yellow Urine Appearance Cloudy Urine pH 5.5 Ur Specific [place] >= 1.030 H Urine Protein Trace Urine Glucose (UA) Negative Urine Ketones Trace Urine Blood Negative Urine Nitrite Negative Ur Leukocyte Esterase Trace H Urine RBC 0-2 Urine WBC 0-5 Ur Squamous Epith Cells 0-2 Urine Bacteria None Seen Hyaline Casts 3-5 Blood Type A Positive Antibody Screen NEGATIVE Crossmatch See Detail Microbiology Microbiology Results: Microbiology 01/16/24 13:27 Blood Culture - Preliminary Blood - Venous No growth after 48 hours. 01/16/24 13:09 Blood Culture - Preliminary Blood - Venous No growth after 48 hours. Assessment and Plan (1) Multifocal pneumonia: Status: Acute (2) ABLA (acute blood loss anemia): Status: Acute (3) Hematoma of left lower extremity: Status: Acute Plan This is an 83 yo female with PMH of PAF on eliquis, HLD, HTN, s/p IMN of L femur for periprosthetic fracture on 01/07 - admitted and treated here 01/05-01/11 had acute blood anemia post hemoglobin 9.6 - 6.9 was transfused 2UPRBC. Was discharged to [facility] and returns with recurrent anemia found to have multifocal pneumonia acute on chronic anemia due to blood loss from hematoma due to recent surgery and AC with Eliquis recently IMN 01/07 for femur fracture and on eliquis for afib/dvt ppx following surgery CT left leg with subq contusion/hematoma in the anterior subcutaneous soft tissues and anterior muscle compartment of the left thigh 2U blood 01/15 with appropriate rise, but still low, will transfuse additional unit 01/16. seen by ortho, no surgical intervention required at this time seen by vascular surgery, no evidence of arterial vessel injury to any of the large vessels stool occult negative hold Eliquis 01/18 acute drop in h/h to 6.3/20.1%. Repeat CT LLE w/ contrast (initially study ordered of lower leg. Given IV fluid bolus to repeat contrast administration to include CT femur which should performed stat given active bleeding. Discussed with CT and RN). GIven addl 2 units PRBC. Will consider reconsult to ortho surgery pending results follow CBC and transfuse prn Multifocal pneumonia with possible sepsis white count trending down, afebrile procalcitonin 1.32, trend one episode of hypotension could be from anemia. blood pressure has improved and is stable. Concern for aspiration Continue unasyn (initiated 01/15) seen by speech, diet upgraded to NDD3, with thin liqs; 1:1 feeds aspiration precautions blood cultures pending Paroxysmal atrial fibrillation- 01/17 RVR overnight, again 01/18 rate now controlled metoprolol initially held for soft bp, bp improved and BB resumed; received addl lopressor 5mg with good response- will monitor HR on tele continue po metoprolol Hold Eliquis for anemia/hematoma toxic metabolic encephalopathy on a background of multifactorial cognitive impairment likely multifactorial due to acute illness, acute anemia, recent surgery, rehab stay and recent hospitalization Remains confused, no worsening per family, but no improvement. Has history recurrent UTI. Check UA/UC. Check liver panel, BMP, ammonia seen by psych last hospitalization, does NOT have capacity to make medical decisions - HCP is daughter Yenni continue [place] hold gabapentin for now elevated trops likely due to demand related to anemia trops have remained flat no chest pain elevated LFTS hold statin minimize tylenol follow liver function left femur fracture s/p IMN 01/07 continue oxy prn for pain, limit use to avoid sedation continue bowel regimen HTN metoprolol resumed. bp controlled Morbid obesity bmi 39.1 recommend weight loss code status- full code DVT prophylaxis- SCPs requires ongoing inpatient stay due to acute blood loss anemia requiring blood transfusion, multifocal pneumonia requiring IV antibiotics, specialist evaluation, and close monitoring of blood pressure given her age and comorbidities can not be done in the lesser acute setting. Quality Stroke Does the patient have a stroke diagnosis?: No VTE Prior VTE?: No VTE Risk Level:: Medical - moderate - high VTE Device Contraindication: N/A - Device Ordered VTE Drug Contraindication: Treatment Not Indicated
[2024-01-19] MEDS: oxyCODONE HCl Immed Release 5 MG TABLET 2.5 MG PO (12:53)
[2024-01-19] MEDS: iohexoL 350 MG/ML 100 ML INFUS..BTL IV ×2 (12:55→14:52)
[2024-01-19] MEDS: LORazepam 2 MG/ML VIAL 0.5 MG IVPUSH (13:05)
[2024-01-19] MEDS: Metoprolol Tartrate 5 MG/5 ML VIAL IVPUSH (13:05)
[2024-01-19] MEDS: 0.9 % Sodium Chloride 1,000 ML 500 ML IV (13:21)
[2024-01-19 15:00] LABS: MANUAL DIFF FLAG NO
[2024-01-19 15:09] LABS: Basophils Percent Auto 0.3 % (0-2); Eosinophils Absolute Auto 0.1 X10*3/uL (0.0-0.4); Eosinophils Percent Auto 0.5 % (0-4); Hematocrit 24.7 % (37.0-47.0); Hemoglobin 7.9 g/dl (12.0-16.0); Imm Gran Abs Auto 0.16 X10*3/uL (0.00-0.03); Imm Gran Pct Auto 1.4 % (0.0-0.4); Lymphocytes Absolute Auto 0.8 X10*3/uL (1.2-4.9); Lymphocytes Percent Auto 6.9 % (20-40); Mean Corpuscular Hemoglobin 30.7 pg (27.0-33.0); Mean Corpuscular Volume 96.1 fL (80.0-98.0); Mean Platelet Volume 11.6 fL (9.4-12.3); Monocytes Absolute Auto 0.8 X10*3/uL (0.1-1.2); Monocytes Percent Auto 7.4 % (2-11); Neutrophils Absolute Auto 9.4 x10*3/uL (2.0-8.3); Neutrophils Percent Auto 83.5 % (45-73); Platelet Count 208 X10*3/uL (160-400); Red Blood Count 2.57 X10*6/uL (4.20-5.50); Red Cell Distribution Width 18.9 % (11.0-16.0); White Blood Count 11.3 X10*3/uL (4.8-10.8)
[2024-01-19 15:15] LABS: Alanine Aminotransferase 86 U/L (0-31); Albumin Level 2.5 g/dL (3.5-5.0); Alkaline Phosphatase 102 U/L (39-117); Aspartate Amino Transferase 55 U/L (5-31); Bilirubin Direct 0.7 mg/dL (0.0-0.5); Bilirubin Total 1.7 mg/dL (0.0-1.0); Prothrombin Time 12.4 SEC (11.1-13.3); Total Protein 5.2 g/dL (6.5-8.0)
[2024-01-19 15:18] LABS: PTT Heparin Drip 26.7 SEC (53-77.9)
--- NOTE | 2024-01-19 15:45 | PM.EVENT ---
Event Note Date of Service: 01/19/24 Event Note: 83 yo female with PMH of PAF on eliquis, HLD, HTN, s/p IMN of L femur for periprosthetic fracture on 01/07 - admitted and treated here 01/05-01/11 had acute blood anemia post hemoglobin 9.6 - 6.9 was transfused 2UPRBC. Was discharged to [facility] and returns with recurrent anemia, and pneumonia On admission CT left leg with subq contusion/hematoma in the anterior subcutaneous soft tissues and anterior muscle compartment of the left thigh, seen by ortho they recommended no surgical intervention seen by vascular surgery, no evidence of arterial vessel injury to any of the large vessels Received 2U blood 01/15 with appropriate rise, noted to have persistent anemia, received additional blood transfusion on 01/16. Eliquis was held stool occult negative 01/18 acute drop in h/h to 6.3/20.1%. 2 units of blood given repeat hematocrit 24.7 and hemoglobin 7.9, platelets 208, INR 1, patient not on IV fluids. 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 Large hematoma in the anterior compartment muscles of the thigh increased in size from 01/16/2024. Called Dr. Ford's and informed him about imaging studies, he will review the case and assess patient at a.m. and will consider placing a coil Will follow hematocrit q.6 hours transfuse as needed. Informed director quality assurance Dr Nick about patient diagnosis, to consider ICU level of care, if there is change in patient clinical condition. Called patient's daughter Yenni Tilley healthcare proxy updated her about presence of pseudoaneurysm and treatment plan with close CBC monitoring, blood transfusion and vascular surgery intervention. Time Spent With Patient Time: Total time managing care of this patient today ____ minutes.
--- NOTE | 2024-01-19 16:27 | PC.NURSE ---
At 12:56 instrument and electrical technician notified nurse pt heart rate was in Afib at a heart rate of 180. Nurse went in to access. Patient was agitated and screaming i'm in pain. Patient received 2.5mg before event. Provider Alo tigertexted order Lopressor and 0.5 Ativan administered iv; see MAR for scanned recorded. Patient heart rate at time decreased to 130-140 rate. @ 13:02 EkG order for patient. @ 13:10 patient heart rhythm broke showing sinus rhythm heart rate 98. Provider notified of heart rate @ 13:30 prior to transporting patient to CT Scan.
--- NOTE | 2024-01-19 19:59 | PC.NURSE ---
Assumed care of this patient at this time.
[2024-01-19 21:21] LABS: Hematocrit 26.3 % (37.0-47.0); Hemoglobin 8.5 g/dl (12.0-16.0); Mean Corpuscular HGB Conc 32.3 g/dl (31.0-35.0); Mean Corpuscular Hemoglobin 30.6 pg (27.0-33.0); Mean Corpuscular Volume 94.6 fL (80.0-98.0); Mean Platelet Volume 11.1 fL (9.4-12.3); NRBC Pct Auto 0.8 /100WBC (0.0-0.2); Platelet Count 202 X10*3/uL (160-400); Red Blood Count 2.78 X10*6/uL (4.20-5.50); Red Cell Distribution Width 18.2 % (11.0-16.0)
[2024-01-19 21:35] LABS: Alanine Aminotransferase 82 U/L (0-31); Albumin Level 2.5 g/dL (3.5-5.0); Alkaline Phosphatase 93 U/L (39-117); Anion Gap 12 (12-20); Aspartate Amino Transferase 48 U/L (5-31); Bilirubin Total 1.7 mg/dL (0.0-1.0); Blood Urea Nitrogen 17 mg/dL (9-16); Calcium 8.2 mg/dL (8.4-10.2); Carbon Dioxide 25 mmol/L (22-29); Chloride 109 mmol/L (96-108); Creatinine Clr Calc Pharmacy 95.9; Estimated Glomerular Filt Rate > 60; Glucose Random 106 mg/dL (60-115); Potassium 3.8 mmol/L (3.3-5.1); Sodium 142 mmol/L (135-145); Total Protein 5.2 g/dL (6.5-8.0)
[2024-01-19] MEDS: Lactated Ringers 500 ML IV (23:01)
[2024-01-20] VITALS: BP 119/55; PULSE 77; RESP 20; TEMP 36.4; O2SAT 93
[2024-01-20 03:33] VITALS: BP 139/64; PULSE 73; RESP 20; TEMP 36.1; O2SAT 94
[2024-01-20 06:16] LABS: Prothrombin Time 12.7 SEC (11.1-13.3)
[2024-01-20 06:25] LABS: Anion Gap 11 (12-20); Blood Urea Nitrogen 15 mg/dL (9-16); Carbon Dioxide 22 mmol/L (22-29); Chloride 111 mmol/L (96-108); Creatinine Clr Calc Pharmacy 101.7; Estimated Glomerular Filt Rate > 60; Glucose Random 91 mg/dL (60-115); Potassium 3.6 mmol/L (3.3-5.1); Sodium 140 mmol/L (135-145)
[2024-01-20 06:30] LABS: Hematocrit 24.8 % (37.0-47.0); Hemoglobin 8.1 g/dl (12.0-16.0); Mean Corpuscular HGB Conc 32.7 g/dl (31.0-35.0); Mean Corpuscular Hemoglobin 30.7 pg (27.0-33.0); Mean Corpuscular Volume 93.9 fL (80.0-98.0); Mean Platelet Volume 11.7 fL (9.4-12.3); NRBC Pct Auto 0.4 /100WBC (0.0-0.2); Platelet Count 187 X10*3/uL (160-400); Red Blood Count 2.64 X10*6/uL (4.20-5.50); Red Cell Distribution Width 18.9 % (11.0-16.0); White Blood Count 9.3 X10*3/uL (4.8-10.8)
[2024-01-20 07:45] VITALS: BP 137/70; PULSE 80; RESP 16; TEMP 36.8; O2SAT 97
[2024-01-20] MEDS: Ampicillin Sodium/Sulbactam Na 1.5 GM in 0.9 % Sodium Chloride 100 ML IV ×4 (07:51→23:45)
--- NOTE | 2024-01-20 09:17 | PM.PNORT ---
Subjective Subjective Date of Service: 01/20/24 Interval history: POD 12 s/p Left hip retrograde nail no overnight events resting in bed no concerns Physical Exam Vital Signs: Vital Signs: Last Vital Signs Temp 98.2 F 01/20/24 07:45 Pulse 80 01/20/24 07:45 Resp 16 01/20/24 07:45 BP 137/70 01/20/24 07:45 Pulse Ox 97 01/20/24 07:45 O2 Del Method Room Air 01/20/24 07:45 BMI result Body Mass Index 39.1 Const: General: cooperative, healthy appearing and no acute distress Resp: Effort & Inspection: normal respiratory effort and able to speak in complete sentences Cardio: Rate: regular rate Peripheral pulses: Peripheral pulses 2+ throughout GI: Palpation (GI): Soft to palpation Skin: Lesions: no lesions Rashes: no rashes Extrem: Other: LLE is moderately swollen. No ecchymosis. Incision sites are c/d/i no surrounding erythema or drainage. No sign of infection. Compartments are soft and compressible. Procedures Date of Service Date of Service: 01/20/24 Progress Note: A&P Assessment and plan (1) Comminuted fracture of shaft of femur: Status: Acute Assessment and Plan: Pain mgmnt PT/OT - 50% wb with walker dvt ppx per medical team due to low h/h lex to be removed this week Time Spent With Patient Time: Total time managing care of this patient today ____ minutes. Quality Stroke Does the patient have a stroke diagnosis?: No VTE Prior VTE?: No VTE Risk Level:: Medical - moderate - high VTE Device Contraindication: N/A - Device Ordered VTE Drug Contraindication: Treatment Not Indicated
--- NOTE | 2024-01-20 09:45 | HO.VASCPN ---
Subjective Subjective Date of Service: 01/20/24 Patient reports: no new complaints and feels better Interval history: Very pleasant 83-year-old female who had undergone left femur fracture repair by Orthopedics have been subsequently discharged. She would seen me in the emergency room on readmission for concerns of bleed from a major named arterial vessel. At that time ultrasound was performed and there was no evidence any acute bleed she was actually ready to be discharged and was noted to have low hemoglobin again. She underwent CT angiogram and there is concern of a branch of the profunda with a pseudoaneurysm. She presents for vascular re-evaluation. Of note daughter is at bedside. She denies any significant pain and discomfort of that left leg. She now presents to us for follow-up. Physical Exam Vital Signs: Vital Signs: Last Vital Signs Temp 98.2 F 01/20/24 07:45 Pulse 80 01/20/24 07:45 Resp 16 01/20/24 07:45 BP 137/70 01/20/24 07:45 Pulse Ox 97 01/20/24 07:45 O2 Del Method Room Air 01/20/24 07:45 BMI result Body Mass Index 39.1 Const: General: cooperative, healthy appearing and comfortable Orientation/consciousness: oriented to person, oriented to place and oriented to time HEENT: Head: Yes normal to inspection Neck: Neck: Yes normal visual inspection Carotids: no bruits Chest: Chest palpation & inspection: normal inspection of the chest Resp: Effort & Inspection: normal respiratory effort and able to speak in complete sentences Auscultation: clear to auscultation bilaterally, no crackles, no rales, no rhonchi and no wheezes Cardio: Other: Left DP signals Rate: regular rate Rhythm: regular rhythm Heart sounds: S1 normal heart sound present and S2 normal heart sound present Bruits: no carotid bruits Peripheral pulses: Peripheral pulses 2+ throughout GI: Inspection: Yes normal to inspection Skin: Wounds: no wounds Hair: normal Neuro: General: oriented to person, oriented to place and oriented to time Cranial nerves: Yes CN's II-XII intact bilaterally and Yes Normal hearing present Cognition (Neuro): normal cognition Motor exam (neuro): 5/5 motor strength present throughout Extrem: Other: venous exam: No significant superficial varicosities or spider telangiectasias, minimal edema General: No clubbing, No cyanosis and No edema Psych: Appearance: grossly normal Mental Status: mental status grossly normal Speech and movement: Normal speech and movement present Progress Note: A&P Assessment and plan (1) PAD (peripheral artery disease): Status: Acute Assessment and Plan: Patient notes 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 I have discussed the pathophysiology of peripheral vascular disease with the patient. I have also discussed risk factor modification. I have reviewed the patient's arterial testing which reveals bleeding from an unnamed vessel on the left lower extremity. the patient would benefit from a left leg endovascular peripheral angiogram with possible angioplasty, stent, and/or atherectomy and possible coiling. This has been discussed in detail with the patient along with risks, benefits, and complications. This includes but is not limited to bleeding, infection, heart attack, need for emergent surgical repair, limb ischemia, blood vessel damage, bleeding, puncture, kidney injury, bruising, allergic reaction, and skin reaction. The patient demonstrates a clear understanding. We will schedule for 1st thing tomorrow morning. This was discussed with the patient the patient's daughter who is the healthcare proxy in addition to the patient's son-in-law who was at bedside as well. Thank you for allowing us to assist in this patient's care. Time Spent With Patient Time: Total time managing care of this patient today ____ minutes. Procedures Date of Service Date of Service: 01/20/24 Quality Stroke Does the patient have a stroke diagnosis?: No VTE Prior VTE?: No VTE Risk Level:: Medical - moderate - high VTE Device Contraindication: N/A - Device Ordered VTE Drug Contraindication: Treatment Not Indicated
[2024-01-20 09:50] VITALS: BP 133/63; PULSE 83; RESP 18; TEMP 36.7; O2SAT 94
[2024-01-20] MEDS: oxyCODONE HCl Immed Release 5 MG TABLET PO ×3 (10:23→20:51)
[2024-01-20] MEDS: Mirabegron 50 MG TAB.ER.24H PO (10:24)
[2024-01-20] MEDS: Ferrous Sulfate 324 MG TABLET.DR PO (10:24)
[2024-01-20] MEDS: 0.9 % Sodium Chloride Flush 3 ML SYRINGE IVFLUSH ×3 (10:25→23:45)
[2024-01-20] MEDS: Metoprolol Succinate ER 25 MG TAB.ER.24H PO (10:25)
[2024-01-20] MEDS: Magnesium Oxide 400 MG TABLET PO (10:25)
[2024-01-20] MEDS: polyethylene glycoL 3350 17 GM POWD.PACK PO (10:26)
[2024-01-20] MEDS: Memantine HCl 5 MG TABLET PO ×2 (10:26→20:51)
--- NOTE | 2024-01-20 11:34 | P.PNIM_ITS ---
Subjective Subjective Date of Service: 01/20/24 Interval History: Being followed for right thigh hematoma and anemia This morning patient is pleasantly confused awake alert complaining of dry mouth, complaining of left leg pain, no acute events overnight, Hematocrit crit remained stable. Review of Systems Unable to obtain detailed review of system due to mental status. Physical Exam 2 Vital Signs: Vital Signs: Last Vital Signs Temp 98.2 F 01/20/24 07:45 Pulse 80 01/20/24 07:45 Resp 16 01/20/24 07:45 BP 137/70 01/20/24 07:45 Pulse Ox 97 01/20/24 07:45 O2 Del Method Room Air 01/20/24 07:45 BMI result Body Mass Index 39.1 Const: Other: General awake alert, in no acute distress. Anicteric sclera Neck supple no JVD. CVS regular rate rhythm, Respiratory lungs clear to auscultation, no respiratory distress, no wheeze, no rhonchi. Gastrointestinal abdomen soft, non tender, bowel sounds audible, no guarding , no rigidity. Extremities left thigh significantly swollen , tender to palpation, fading ecchymosis, lex intact no surrounding erythema, Neuro non focal , speech clear. Psych impaired insight Objective Data Active Medications Acetaminophen (Acetaminophen 325 Mg Tablet) 650 mg PO Q6H PRN PRN Reason: Pain, Mild (Pain Scale 1-3) Last Admin: 01/19/24 21:04 Dose: 650 mg Documented By: SAIDA Docusate Sodium (Docusate Sodium 100 Mg Capsule) 100 mg PO BID [facility] Last Admin: 01/20/24 10:22 Dose: Not Given Documented By: JOSEF Non-Admin Reason: CANT CRUSH Ferrous Sulfate (Ferrous Sulfate 324 Mg Tablet.Dr) 324 mg PO DAILY [facility] Last Admin: 01/20/24 10:24 Dose: 324 mg Documented By: JOSEF Gabapentin (Gabapentin 100 Mg Capsule) 100 mg PO BEDTIME [facility] Last Admin: 01/19/24 21:03 Dose: 100 mg Documented By: SAIDA Ampicillin Sodium/Sulbactam (Sodium 1.5 gm/ Sodium Chloride) 100 mls @ 200 mls/hr IV Q6H [facility] Last Infusion: 01/20/24 11:07 Dose: Infused Documented By: JOSEF Sodium Chloride (Ns) 1,000 mls @ 100 mls/hr IVCONT .Q10H [facility] Magnesium Oxide (Magnesium Oxide 400 Mg Tablet) 400 mg PO DAILY [facility] Last Admin: 01/20/24 10:25 Dose: 400 mg Documented By: JOSEF Memantine (Memantine Hcl 5 Mg Tablet) 5 mg PO BID [facility] Last Admin: 01/20/24 10:26 Dose: 5 mg Documented By: JOSEF Metoprolol Succinate (Metoprolol Succinate Er 25 Mg Tab.Er.24h) 25 mg PO DAILY [facility]; Protocol Last Admin: 01/20/24 10:25 Dose: 25 mg Documented By: JOSEF Mirabegron (Mirabegron 50 Mg Tab.Er.24h) 50 mg PO DAILY [facility] Last Admin: 01/20/24 10:24 Dose: 50 mg Documented By: JOSEF Ondansetron HCl (Ondansetron Hcl 4 Mg/2 Ml Vial) 4 mg IVPUSH Q8H PRN PRN Reason: Nausea and Vomiting Last Admin: 01/16/24 21:30 Dose: 4 mg Documented By: FRANCK Oxycodone HCl (Oxycodone Hcl Immed Release 5 Mg Tablet) 5 mg PO Q6H PRN PRN Reason: Pain (Scale Score 7-10) Last Admin: 01/20/24 10:23 Dose: 5 mg Documented By: JOSEF Oxycodone HCl (Oxycodone Hcl Immed Release 5 Mg Tablet) 2.5 mg PO BID PRN PRN Reason: Pain, Moderate(Pain Scale 4-6) Last Admin: 01/19/24 12:53 Dose: 2.5 mg Documented By: SWAPNIL Polyethylene Glycol (Polyethylene Glycol 3350 17 Gm Powd.Pack) 17 gm PO DAILY [facility] Last Admin: 01/20/24 10:26 Dose: 17 gm Documented By: JOSEF Senna (Sennosides 8.6 Mg Tablet) 17.2 mg PO BEDTIME [facility] Last Admin: 01/19/24 20:45 Dose: Not Given Documented By: NUNU-PRINCE Non-Admin Reason: diarrhea Sodium Chloride (0.9 % Sodium Chloride Flush 3 Ml Syringe) 3 ml IVFLUSH QSHIFT [facility] Last Admin: 01/20/24 10:25 Dose: 3 ml Documented By: JOSEF Labs 01/20/24 05:54 01/20/24 05:54 Labs: Laboratory Results - last 24 hr 01/16/24 01/19/24 01/19/24 12:20 14:56 21:02 MCV 96.1 94.6 MCH 30.7 30.6 MCHC 32.0 32.3 RDW 18.9 H 18.2 H Plt Count 208 D 202 MPV 11.6 11.1 Immature Gran % (Auto) 1.4 H Neut % (Auto) 83.5 H Lymph % (Auto) 6.9 L [place] % (Auto) 7.4 Eos % (Auto) 0.5 Baso % (Auto) 0.3 Lymph # (Auto) 0.8 L [place] # (Auto) 0.8 Eos # (Auto) 0.1 Baso # (Auto) 0.0 Abs Immat Gran (auto) 0.16 H Absolute Neuts (auto) 9.4 H Absolute Nucleated RBC 0.110 H 0.080 H Nucleated RBC % (auto) 1.0 H 0.8 H PT 12.4 INR 1.0 aPTT Heparin Protocol 26.7 L Anion Gap 12 Estim Creat Clear Calc 95.9 Estimated GFR > 60 Random Glucose 106 Calcium 8.2 L Total Bilirubin 1.7 H 1.7 H Direct Bilirubin 0.7 H AST 55 H 48 H ALT 86 H 82 H Alkaline Phosphatase 102 93 Total Creatine Kinase 842 H Total Protein 5.2 L 5.2 L Albumin 2.5 L 2.5 L Blood Type A Positive Antibody Screen NEGATIVE Crossmatch See Detail 01/20/24 05:54 MCV 93.9 MCH 30.7 MCHC 32.7 RDW 18.9 H Plt Count 187 MPV 11.7 Immature Gran % (Auto) Neut % (Auto) Lymph % (Auto) [place] % (Auto) Eos % (Auto) Baso % (Auto) Lymph # (Auto) [place] # (Auto) Eos # (Auto) Baso # (Auto) Abs Immat Gran (auto) Absolute Neuts (auto) Absolute Nucleated RBC 0.040 H Nucleated RBC % (auto) 0.4 H PT 12.7 INR 1.0 aPTT Heparin Protocol Anion Gap 11 L Estim Creat Clear Calc 101.7 Estimated GFR > 60 Random Glucose 91 Calcium 8.0 L Total Bilirubin Direct Bilirubin AST ALT Alkaline Phosphatase Total Creatine Kinase Total Protein Albumin Blood Type Antibody Screen Crossmatch Assessment and Plan (1) Multifocal pneumonia: Status: Acute (2) ABLA (acute blood loss anemia): Status: Acute (3) Hematoma of left lower extremity: Status: Acute Plan This is an 83 yo female with PMH of PAF on eliquis, HLD, HTN, s/p IMN of L femur for periprosthetic fracture on 01/07 - admitted and treated here 01/05-01/11 had acute blood anemia post hemoglobin 9.6 - 6.9 was transfused 2UPRBC. Was discharged to [facility] and returns with recurrent anemia found to have multifocal pneumonia acute on chronic anemia due to blood loss from hematoma due to recent surgery and AC with Eliquis recently IMN 01/07 for femur fracture and on eliquis for afib/dvt ppx following surgery Initial CT left leg with subq contusion/hematoma in the anterior subcutaneous soft tissues and anterior muscle compartment of the left thigh Eliquis was discontinued on admission, 2U blood given on 01/15 with appropriate rise, hematocrit dropped again on 01/16, received 1 additional unit. on 01/18 noted acute drop in h/h to 6.3/20.1%. 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 Large hematoma in the anterior compartment muscles of the thigh increased in size from 01/16/2024. Patient seen by Dr. Ford this morning and planned for left leg endovascular peripheral angiogram with possible angioplasty, stent, and/or atherectomy and possible coiling on 01/20. Add IV analgesics due to continued pain /continue as needed oxycodone Follow CBC closely. Multifocal pneumonia with possible sepsis white count trending down, afebrile procalcitonin 1.32, repeat down to 0.37 one episode of hypotension could be from anemia. blood pressure has improved and is stable. Concern for aspiration ,Continue unasyn (initiated 01/15) seen by speech, diet upgraded to NDD3, with thin liqs; 1:1 feeds aspiration precautions blood cultures negative times 48 hours Paroxysmal atrial fibrillation- stable heart rate with episodes of intermittent rapid ventricular response continue po metoprolol Hold Eliquis for anemia/hematoma toxic metabolic encephalopathy on a background of multifactorial cognitive impairment likely multifactorial due to acute illness, acute anemia, recent surgery, rehab stay and recent hospitalization Remains confused, no worsening per family, but no improvement. Has history recurrent UTI. Check UA/UC. Check liver panel, BMP, ammonia seen by psych last hospitalization, does NOT have capacity to make medical decisions - HCP is daughter Yenni continue nam[place] hold gabapentin for now elevated trops likely due to demand related to anemia trops have remained flat no chest pain elevated LFTS Elevated bili likely due to hemolysis , chronically elevated liver enzymes, hold statin minimize tylenol left femur fracture s/p IMN 01/07 continue analgesics continue bowel regimen seen by ortho HTN Stable blood pressure continue metoprolol 25 mg daily Morbid obesity bmi 39.1 recommend low-calorie diet weight loss code status- full code DVT prophylaxis- SCPs requires ongoing inpatient stay due to acute blood loss anemia requiring blood transfusion, multifocal pneumonia requiring IV antibiotics, specialist evaluation, and close monitoring of blood pressure given her age and comorbidities can not be done in the lesser acute setting. Quality Stroke Does the patient have a stroke diagnosis?: No VTE Prior VTE?: No VTE Risk Level:: Medical - moderate - high VTE Device Contraindication: N/A - Device Ordered VTE Drug Contraindication: Treatment Not Indicated
--- NOTE | 2024-01-20 12:21 | MHC.SL.SWA ---
Speech Pathologist Impression: Risk of aspiration secondary to confusion/dementia, oral phase dysphagia characterized by prolonged chewing and residuals Risk of Aspiration Due to: Lethargy History of Pneumonia Reduced Cognition Dysphasia Diet Status: No change at this time Liquid Consistency and Strategies for Safe Swallow: Liquid Intake Recommendation: Thin Liquid Intake Strategies: Small Sips Solid Food Consistency: Dietary Recommendations: Chopped/Advanced (NDD3) Additional Modifications to Solid Foods: MARKETING PROPOSAL COORDINATOR to f/u 1-2x Oral Medication Intake: Whole with Liquid Please contact the pharmacy regarding appropriate crushable or liquid drug formulations that are available whenever modified delivery is recommended. Compensatory Strategies and Precautions to be Taken for Safe Swallow: Sitting Upright (90 deg) Liquids from Cup Liquids from Straw Small Bites and Sips Alternate Liquids/Solids Rate of Ingestion Change Oral Check Avoid Specific Foods Supervision While Eating and Drinking for Safe Swallow: Total Assistance (1:1) Swallowing Recommended Treatments: Compens. Strategy Educat. Recommendation for Speech: 1-2 f/u Secondary Special Education Teacher Clinican/Clinical Fellow: No Supervisory Statement: I have reviewed and agree with the student/clinical fellow's documentation: N/A Speech Language Pathologist: Fabby Vera M.A., CCC-MARKETING PROPOSAL COORDINATOR
[2024-01-20 18:48] LABS: Hematocrit 26.1 % (37.0-47.0); Hemoglobin 8.6 g/dl (12.0-16.0)
[2024-01-20 19:34] VITALS: BP 136/62; PULSE 87; RESP 20; TEMP 36.8; O2SAT 97
[2024-01-20] MEDS: Gabapentin 100 MG CAPSULE PO (20:51)
[2024-01-21] VITALS (20 sets, daily range): BP systolic 96–152; BP diastolic 33–66; PULSE 79–162; RESP 16–20; TEMP 36.3–37.5; O2SAT 94–98
[2024-01-21] MEDS: Morphine Sulfate 2 MG/ML CARTRIDGE IVPUSH (01:00)
[2024-01-21] MEDS: HYDROmorphone HCl 1 MG/ML SYRINGE 0.8 MG IVPUSH (01:40)
--- NOTE | 2024-01-21 02:12 | PC.NURSE ---
Pt screaming out in pain stating take my leg off amputate it my leg is going to blow up PRN 2mg morphine IV admin at 01:00. Pt continuing to scream out stating her leg is in pain and repeating quotes mentioned. Pt pulses heard via doppler. Tried repositioning pt. When pt screaming HR 140-170s. Pt states pain is a 10, told pt she just got some pain meds, pt stating leg still in too much pain needs another shot screaming. MD notified of pt state. One time dose 0.8mg diuladid IV for pain ordered and admin at 01:40. Approx 10 min later pt is resting more comfortably and screaming subsided at this time. HR decreased as well 88bpm at this time. Will continue to closely assess pain and pt status
[2024-01-21] MEDS: Ampicillin Sodium/Sulbactam Na 1.5 GM in 0.9 % Sodium Chloride 100 ML IV ×3 (05:51→17:43)
[2024-01-21] MEDS: 0.9 % Sodium Chloride 1,000 ML 100 ML IVCONT ×2 (05:51→15:48)
--- NOTE | 2024-01-21 09:25 | HO.WOUND ---
Wound Consult: Initial 83yr old?Female admitted to [facility] on 01/16/24 - See progress notes and H&P for detailed history.? Wound consult placed for Left Heel and Coccyx wounds POA. Arrival to bedside patient was off unit - will attempt assessment at future date and or time. ?
--- NOTE | 2024-01-21 10:12 | W.PM.OPN ---
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 Ultrasound-guided right common femoral access 2. Aortogram with left lower extremity runoff 3. Left profundus femoris artery stenting Surgeon:Harlan Ford M.D., FACS, RPVI Outsole Paraffiner:None Anesthesia: Local with moderate conscious sedation. Total intraservice moderate sedation time was 70 minutes. I monitored the patient's level of consciousness and physiologic status continuously throughout the procedure. Specimens:none Drains:none Estimated blood loss: Less than 10 ml Implant: [place] viabhan 6 x 50; Medtronic Impact DCB 5 x 60 Indications: Pleasant 83-year-old female who originally presented with bleeding from the left leg. She would undergone orthopedic intervention wound was actually discharged. She came back with decreased hemoglobin. Should stabilized and then bled again. CT angiogram was obtained and there was concern of bleeding from the profundus femorals. She now presents for endovascular intervention. The patients daughter has signed the informed consent after reviewing risks, complications, benefits, and alternatives previously discussed with the patient. The patient was given the opportunity to ask any additional questions or voice any concerns. All questions were answered to the patient's satisfaction. Procedure in detail: Patient was brought to the angiography suite prior to which a time-out was called for patient identification and site verification. Bilateral groins were prepped and draped in the standard surgical fashion. Under ultrasound guidance right common femoral was punctured with micro puncture needle and wire. Subsequently a precision 5 Nauruan sheath was then placed. Bentson wire was advanced to the level of the aorta. 4 Nauruan Flush catheter was brought up and parked at the level of the renal arteries. Aortogram was then undertaken. Catheter was brought down to the level of the iliac bifurcation. Iliacs were subsequently imaged. Catheter was then brought in up and over to the left side SFA. Runoff study was then undertaken. We appreciated the site of bleed from the profundus femorals. At this time 5000 units of systemic heparin was administered we advanced a Glidewire advantage into the profundus femorals. Over this we exchanged out for an up and over 5 Nauruan sheath. We were able to traverse this area with an 035 glidewire Advantage after some manipulation. We did have to take multiple orthogonal views to identify this clearly. Once we were across we then upsized to an up and over 6 Nauruan destination sheath. We then exchanged out for an 018 advantage wire. Over this a [place] via gonzalez covered stent 6 x 50 was placed over the location the contrast extravasation. Angiogram at this point demonstrated good result with a questionable endoleak. We post dilated this with a a 5 x 60 Medtronic Impact DCB to do a sure good wall apposition. Once this was accomplished excellent result was achieved. Runoff was done through the sheath. Catheter wire sheath was brought back to the ipsilateral side. StarClose closure device was then deployed. Patient tolerated the procedure well. Interpretation of films: 1. Ultrasound demonstrates appropriate femoral puncture. Image of which was saved. 2. Aortogram demonstrates appropriate caliber aorta. Minimal disease. Appropriate take-off of the renals. 3. Iliac images demonstrate no significant disease high amount of tortuosity 4. Left Leg Common femoral artery: No significant disease Profundus Femoris: Distal profundus femoris location of contrast extravasation. Post stent appear to be stable no evidence of leak Superficial femoral artery: Distal SFA occlusion short segment with immediate reconstitution Popliteal artery (p1,p2,p3): Patent Anterior tibial artery: Patent with runoff all the way to the foot Peroneal artery: Patent with runoff all the way to the foot Posterior tibial artery: Patent for the proximal half. Although it appears to be diminutive. It does taper off and does not supply all the way down. Dorsalis pedis/plantar arch: Incomplete Conclusion: 1. Successful plasty and stent of profundus femoris 2. Anticoagulation status: Ideally would need to be on aspirin and Plavix but due to her bleeding will hold off at the current time. This note is constructed using voice recognition software. While every effort has been made to ensure accuracy, sugar house supervisor errors may have been included. Thank you for allowing me to participate in the care of your patient. Yours sincerely, Harlan Ford MD, FACS, R.P.V.I.
--- NOTE | 2024-01-21 13:18 | MHC.SPEECHCO ---
Pt was NPO today. After her she was given an unrestricted diet. WHEEL ALIGNMENT TECHNICIAN spoke with her Dtr and confirmed her Family's choice for a softer diet. Ordered in EMR as Chopped/Advanced Solids (NDD3) and Thin Liquids.
--- NOTE | 2024-01-21 14:35 | P.PNIM_ITS ---
Subjective Subjective Date of Service: 01/21/24 Interval History: Status post aortogram with left lower extremity runoff, and stenting of left profundus femoris, postprocedure patient is resting comfortably, vitals stable. Review of Systems Unable to obtain detailed review of system due to mental status. Physical Exam 2 Vital Signs: Vital Signs: Last Vital Signs Temp 98.2 F 01/21/24 12:00 Pulse 90 01/21/24 12:00 Resp 18 01/21/24 12:00 BP 137/66 01/21/24 12:00 Pulse Ox 98 01/21/24 12:00 O2 Del Method Room Air 01/21/24 12:00 BMI result Body Mass Index 39.1 Const: Other: General resting comfortably in no distress Anicteric sclera Neck supple no JVD. CVS regular rate rhythm, Respiratory lungs clear to auscultation, no respiratory distress, no wheeze, no rhonchi. Gastrointestinal abdomen soft, non tender, bowel sounds audible, no guarding , no rigidity. Extremities left thigh significantly swollen , fading ecchymosis, lex intact, no surrounding erythema, Neuro non focal , speech clear. Psych impaired insight Objective Data Active Medications Acetaminophen (Acetaminophen 325 Mg Tablet) 650 mg PO Q6H PRN PRN Reason: Pain, Mild (Pain Scale 1-3) Last Admin: 01/19/24 21:04 Dose: 650 mg Documented By: SAIDA Docusate Sodium (Docusate Sodium 100 Mg Capsule) 100 mg PO BID [facility] Last Admin: 01/21/24 08:11 Dose: Not Given Documented By: GLENROY Non-Admin Reason: NPO Ferrous Sulfate (Ferrous Sulfate 324 Mg Tablet.Dr) 324 mg PO DAILY [facility] Last Admin: 01/21/24 08:11 Dose: Not Given Documented By: GLENROY Non-Admin Reason: Off Unit: Surgery Gabapentin (Gabapentin 100 Mg Capsule) 100 mg PO BEDTIME [facility] Last Admin: 01/20/24 20:51 Dose: 100 mg Documented By: HANNAH Ampicillin Sodium/Sulbactam (Sodium 1.5 gm/ Sodium Chloride) 100 mls @ 200 mls/hr IV Q6H [facility] Last Infusion: 01/21/24 14:12 Dose: Infused Documented By: GLENROY Sodium Chloride (Ns) 1,000 mls @ 100 mls/hr IVCONT .Q10H [facility] Last Admin: 01/21/24 05:51 Dose: 100 mls/hr Documented By: BRIANNA Magnesium Oxide (Magnesium Oxide 400 Mg Tablet) 400 mg PO DAILY [facility] Last Admin: 01/21/24 08:11 Dose: Not Given Documented By: GLENROY Non-Admin Reason: Off Unit: Surgery Memantine (Memantine Hcl 5 Mg Tablet) 5 mg PO BID [facility] Last Admin: 01/21/24 08:12 Dose: Not Given Documented By: GLENROY Non-Admin Reason: Off Unit: Surgery Metoprolol Succinate (Metoprolol Succinate Er 25 Mg Tab.Er.24h) 25 mg PO DAILY [facility]; Protocol Last Admin: 01/21/24 08:13 Dose: Not Given Documented By: GLENROY Non-Admin Reason: Off Unit: Surgery Mirabegron (Mirabegron 50 Mg Tab.Er.24h) 50 mg PO DAILY [facility] Last Admin: 01/21/24 08:13 Dose: Not Given Documented By: GLENROY Non-Admin Reason: Off Unit: Surgery Morphine Sulfate (Morphine Sulfate 2 Mg/Ml Cartridge) 2 mg IVPUSH Q4H PRN; Protocol PRN Reason: Pain, Severe (Pain Scale 7-10) Last Admin: 01/21/24 01:00 Dose: 2 mg Documented By: BRIANNA Ondansetron HCl (Ondansetron Hcl 4 Mg/2 Ml Vial) 4 mg IVPUSH Q8H PRN PRN Reason: Nausea and Vomiting Last Admin: 01/16/24 21:30 Dose: 4 mg Documented By: FRANCK Oxycodone HCl (Oxycodone Hcl Immed Release 5 Mg Tablet) 5 mg PO TID [facility] Last Admin: 01/21/24 08:13 Dose: Not Given Documented By: GLENROY Non-Admin Reason: Off Unit: Surgery Polyethylene Glycol (Polyethylene Glycol 3350 17 Gm Powd.Pack) 17 gm PO DAILY [facility] Last Admin: 01/21/24 08:13 Dose: Not Given Documented By: GLENROY Non-Admin Reason: Off Unit: Surgery Senna (Sennosides 8.6 Mg Tablet) 17.2 mg PO BEDTIME [facility] Last Admin: 01/20/24 22:40 Dose: Not Given Documented By: HANNAH Non-Admin Reason: Patient Condition Contraindication Sodium Chloride (0.9 % Sodium Chloride Flush 3 Ml Syringe) 3 ml IVFLUSH QSHIFT [facility] Last Admin: 01/21/24 08:10 Dose: Not Given Documented By: GLENROY Non-Admin Reason: IV Running Labs 01/20/24 18:21 01/20/24 05:54 Assessment and Plan (1) Multifocal pneumonia: Status: Acute (2) ABLA (acute blood loss anemia): Status: Acute (3) Hematoma of left lower extremity: Status: Acute Plan This is an 83 yo female with PMH of PAF on eliquis, HLD, HTN, s/p IMN of L femur for periprosthetic fracture on 01/07 - admitted and treated here 01/05-01/11 had acute blood anemia post hemoglobin 9.6 - 6.9 was transfused 2UPRBC. Was discharged to [facility] and returns with recurrent anemia found to have multifocal pneumonia acute on chronic anemia due to blood loss from hematoma due to recent surgery and AC with Eliquis Repeat hematocrit stable, no acute events recently IMN 01/07 for femur fracture and on eliquis for afib/dvt ppx following surgery Initial CT left leg with subq contusion/hematoma in the anterior subcutaneous soft tissues and anterior muscle compartment of the left thigh Eliquis was discontinued on admission, 2U blood given on 01/15 with appropriate rise, hematocrit dropped again on 01/16, received 1 additional unit. on 01/18 noted acute drop in h/h to 6.3/20.1%. 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 Large hematoma in the anterior compartment muscles of the thigh increased in size from 01/16/2024. Patient underwent aortogram with left lower extremity runoff and left profundus femoris artery stenting by Dr. Ford today postprocedure patient remains hemodynamically stable Continue IV morphine /as needed oxycodone Follow CBC closely. Multifocal pneumonia with possible sepsis white count trending down, afebrile procalcitonin 1.32, repeat down to 0.37 one episode of hypotension could be from anemia. blood pressure has improved and is stable. Concern for aspiration ,Continue unasyn (initiated 01/15) seen by speech, diet upgraded to NDD3, with thin liqs; 1:1 feeds aspiration precautions blood cultures negative times 48 hours Paroxysmal atrial fibrillation- stable heart rate with episodes of intermittent rapid ventricular response continue po metoprolol Eliquis on hold , will resume at a.m. after discussing with vascular surgery toxic metabolic encephalopathy on a background of multifactorial cognitive impairment. likely due to acute illness, acute anemia, recent surgery, rehab stay and recent hospitalization UA negative/ammonia normal, LFTs trending down stable BMP seen by psych last hospitalization, does NOT have capacity to make medical decisions - HCP is daughter Yenni continue namenda Continue to hold gabapentin for now elevated trops likely due to demand related to anemia trops have remained flat no chest pain elevated LFTS Elevated bili likely due to hemolysis , chronically elevated liver enzymes, hold statin minimize tylenol left femur fracture s/p IMN 01/07 continue analgesics continue bowel regimen seen by ortho HTN Stable blood pressure continue metoprolol 25 mg daily Morbid obesity bmi 39.1 recommend low-calorie diet weight loss code status- full code DVT prophylaxis- SCPs requires ongoing inpatient stay due to acute blood loss anemia requiring blood transfusion, multifocal pneumonia requiring IV antibiotics, specialist evaluation, and close monitoring of blood pressure given her age and comorbidities can not be done in the lesser acute setting. Quality Stroke Does the patient have a stroke diagnosis?: No VTE Prior VTE?: No VTE Risk Level:: Medical - moderate - high VTE Device Contraindication: N/A - Device Ordered VTE Drug Contraindication: Treatment Not Indicated
--- NOTE | 2024-01-21 15:29 | PC.NURSE ---
patient returned to unit from PACU at 12:15. upon arrival patient is asleep, but easily arousable. vital signs stable. Pedal pulses located with doppler. DSG to Left upper thigh CDI.
[2024-01-21] MEDS: oxyCODONE HCl Immed Release 5 MG TABLET PO ×2 (17:43→21:08)
[2024-01-21] MEDS: 0.9 % Sodium Chloride Flush 3 ML SYRINGE IVFLUSH (17:43)
[2024-01-21] MEDS: Sennosides 8.6 MG TABLET 17.2 MG PO (21:07)
[2024-01-21] MEDS: Memantine HCl 5 MG TABLET PO (21:07)
[2024-01-21] MEDS: Docusate Sodium 100 MG CAPSULE PO (21:07)
[2024-01-21] MEDS: Gabapentin 100 MG CAPSULE PO (21:08)
[2024-01-22] VITALS (27 sets, daily range): BP systolic 103–147; BP diastolic 53–68; PULSE 70–96; RESP 16–20; TEMP 36.7–37.3; O2SAT 95–98
[2024-01-22] MEDS: Ampicillin Sodium/Sulbactam Na 1.5 GM in 0.9 % Sodium Chloride 100 ML IV ×4 (01:20→17:21)
[2024-01-22] MEDS: 0.9 % Sodium Chloride Flush 3 ML SYRINGE IVFLUSH ×4 (01:21→23:23)
[2024-01-22] MEDS: 0.9 % Sodium Chloride 1,000 ML 100 ML IVCONT (01:23)
[2024-01-22 07:34] LABS: Mean Corpuscular HGB Conc 30.5 g/dl (31.0-35.0); Mean Corpuscular Hemoglobin 30.4 pg (27.0-33.0); Mean Corpuscular Volume 99.5 fL (80.0-98.0); Mean Platelet Volume 11.3 fL (9.4-12.3); NRBC Pct Auto 0.4 /100WBC (0.0-0.2); Platelet Count 178 X10*3/uL (160-400); Red Blood Count 1.91 X10*6/uL (4.20-5.50); Red Cell Distribution Width 17.9 % (11.0-16.0); White Blood Count 7.7 X10*3/uL (4.8-10.8)
[2024-01-22 07:46] LABS: Alanine Aminotransferase 35 U/L (0-31); Alkaline Phosphatase 83 U/L (39-117); Anion Gap 9 (12-20); Aspartate Amino Transferase 27 U/L (5-31); Bilirubin Direct 0.4 mg/dL (0.0-0.5); Bilirubin Total 1.1 mg/dL (0.0-1.0); Blood Urea Nitrogen 13 mg/dL (9-16); Calcium 7.6 mg/dL (8.4-10.2); Carbon Dioxide 24 mmol/L (22-29); Chloride 112 mmol/L (96-108); Creatinine Clr Calc Pharmacy 113.3; Estimated Glomerular Filt Rate > 60; Glucose Random 89 mg/dL (60-115); Potassium 3.7 mmol/L (3.3-5.1); Sodium 141 mmol/L (135-145); Total Protein 4.5 g/dL (6.5-8.0)
[2024-01-22 07:50] LABS: Hemoglobin 5.8 g/dl (12.0-16.0)
[2024-01-22] MEDS: oxyCODONE HCl Immed Release 5 MG TABLET PO ×3 (08:32→19:29)
[2024-01-22] MEDS: Ferrous Sulfate 324 MG TABLET.DR PO (08:33)
[2024-01-22] MEDS: Magnesium Oxide 400 MG TABLET PO (08:33)
[2024-01-22] MEDS: Memantine HCl 5 MG TABLET PO ×2 (08:33→19:29)
[2024-01-22] MEDS: polyethylene glycoL 3350 17 GM POWD.PACK PO (08:33)
[2024-01-22] MEDS: Mirabegron 50 MG TAB.ER.24H PO (08:33)
[2024-01-22] MEDS: Docusate Sodium 100 MG CAPSULE PO ×2 (08:33→19:29)
[2024-01-22] MEDS: Metoprolol Succinate ER 25 MG TAB.ER.24H PO (08:34)
--- NOTE | 2024-01-22 10:36 | MHC.SL.SWA ---
Risk of Aspiration Due to: Lethargy History of Pneumonia Reduced Cognition Dysphasia Diet Status: UPGRADE to regular solids Liquid Consistency and Strategies for Safe Swallow: Liquid Intake Recommendation: Thin Liquid Intake Strategies: Small Sips Solid Food Consistency: Dietary Recommendations: Regular Oral Medication Intake: Whole with Liquid Please contact the pharmacy regarding appropriate crushable or liquid drug formulations that are available whenever modified delivery is recommended. Compensatory Strategies and Precautions to be Taken for Safe Swallow: Sitting Upright (90 deg) Liquids from Cup Liquids from Straw Small Bites and Sips Alternate Liquids/Solids Rate of Ingestion Change Oral Check Avoid Specific Foods Supervision While Eating and Drinking for Safe Swallow: Total Supervision (1:1) Swallowing Recommended Treatments: Compens. Strategy Educat. Recommendation for Speech: Inpatient Speech Therapy Comment: Recommend UPGRADE to REGULAR solids. Continue w/ thin liquids and pills whole w/ liquid. Direct supervision during meals. CONSTRUCTION TECHNOLOGY INSTRUCTOR to f/u 1-2x Frequency/Duration: M-F PRN Special Procedures Tech Clinican/Clinical Fellow: No Supervisory Statement: I have reviewed and agree with the student/clinical fellow's documentation: N/A Speech Language Pathologist: Magda Guzman M.A., CCC-CONSTRUCTION TECHNOLOGY INSTRUCTOR
--- NOTE | 2024-01-22 12:52 | P.PNIM_ITS ---
Subjective Subjective Date of Service: 01/22/24 Interval History: Patient awake alert pleasantly confused, denies pain, slept well, no hematemesis or melena noted, noted to have significant drop in hematocrit to 19, with hemoglobin 5.8, platelet 178, normal WBC. No nausea, no vomiting, no fever, no chills ,Daughter at bedside . Review of Systems Unable to do complete review of system due to underlying dementia. Physical Exam 2 Vital Signs: Vital Signs: Last Vital Signs Temp 98.1 F 01/22/24 11:19 Pulse 75 01/22/24 12:00 Resp 18 01/22/24 11:19 BP 103/61 01/22/24 11:19 Pulse Ox 98 01/22/24 11:19 O2 Del Method Room Air 01/22/24 11:19 BMI result Body Mass Index 39.1 Const: Other: General resting comfortably in no distress Anicteric sclera Neck supple no JVD. CVS regular rate rhythm, Respiratory lungs clear to auscultation, no respiratory distress, no wheeze, no rhonchi. Gastrointestinal abdomen soft, non tender, bowel sounds audible, no guarding , no rigidity. Extremities left thigh significantly swollen , no change since yesterday, tender to palpation and with movement, fading ecchymosis, lex intact, no surrounding erythema, Neuro non focal , speech clear. Psych impaired insight Objective Data Active Medications Acetaminophen (Acetaminophen 325 Mg Tablet) 650 mg PO Q6H PRN PRN Reason: Pain, Mild (Pain Scale 1-3) Last Admin: 01/19/24 21:04 Dose: 650 mg Documented By: SAIDA Docusate Sodium (Docusate Sodium 100 Mg Capsule) 100 mg PO BID [facility] Last Admin: 01/22/24 08:33 Dose: 100 mg Documented By: FRANCISCO Ferrous Sulfate (Ferrous Sulfate 324 Mg Tablet.) 324 mg PO DAILY [facility] Last Admin: 01/22/24 08:33 Dose: 324 mg Documented By: FRANCISCO Gabapentin (Gabapentin 100 Mg Capsule) 100 mg PO BEDTIME [facility] Last Admin: 01/21/24 21:08 Dose: 100 mg Documented By: AMAYA Ampicillin Sodium/Sulbactam (Sodium 1.5 gm/ Sodium Chloride) 100 mls @ 200 mls/hr IV Q6H [facility] Last Infusion: 01/22/24 11:54 Dose: Infused Documented By: FRANCISCO Sodium Chloride (Ns) 1,000 mls @ 80 mls/hr IVCONT .[id number] [facility] Last Admin: 01/22/24 01:23 Dose: 100 mls/hr Documented By: VERONICA Magnesium Oxide (Magnesium Oxide 400 Mg Tablet) 400 mg PO DAILY [facility] Last Admin: 01/22/24 08:33 Dose: 400 mg Documented By: FRANCISCO Memantine (Memantine Hcl 5 Mg Tablet) 5 mg PO BID [facility] Last Admin: 01/22/24 08:33 Dose: 5 mg Documented By: FRANCISCO Metoprolol Succinate (Metoprolol Succinate Er 25 Mg Tab.Er.24h) 25 mg PO DAILY [facility]; Protocol Last Admin: 01/22/24 08:34 Dose: 25 mg Documented By: FRANCISCO Mirabegron (Mirabegron 50 Mg Tab.Er.24h) 50 mg PO DAILY [facility] Last Admin: 01/22/24 08:33 Dose: 50 mg Documented By: FRANCISCO Morphine Sulfate (Morphine Sulfate 2 Mg/Ml Cartridge) 2 mg IVPUSH Q4H PRN; Protocol PRN Reason: Pain, Severe (Pain Scale 7-10) Last Admin: 01/21/24 01:00 Dose: 2 mg Documented By: BRIANNA Ondansetron HCl (Ondansetron Hcl 4 Mg/2 Ml Vial) 4 mg IVPUSH Q8H PRN PRN Reason: Nausea and Vomiting Last Admin: 01/16/24 21:30 Dose: 4 mg Documented By: FRANCK Oxycodone HCl (Oxycodone Hcl Immed Release 5 Mg Tablet) 5 mg PO TID [facility] Last Admin: 01/22/24 08:32 Dose: 5 mg Documented By: FRANCISCO Polyethylene Glycol (Polyethylene Glycol 3350 17 Gm Powd.Pack) 17 gm PO DAILY [facility] Last Admin: 01/22/24 08:33 Dose: 17 gm Documented By: FRANCISCO Senna (Sennosides 8.6 Mg Tablet) 17.2 mg PO BEDTIME [facility] Last Admin: 01/21/24 21:07 Dose: 17.2 mg Documented By: AMAYA Sodium Chloride (0.9 % Sodium Chloride Flush 3 Ml Syringe) 3 ml IVFLUSH QSHIFT [facility] Last Admin: 01/22/24 08:33 Dose: 3 ml Documented By: FRANCISCO Labs 01/22/24 07:03 01/22/24 07:03 Labs: Laboratory Results - last 24 hr 01/22/24 01/22/24 07:03 08:40 MCV 99.5 H D MCH 30.4 MCHC 30.5 L RDW 17.9 H Plt Count 178 MPV 11.3 Absolute Nucleated RBC 0.030 H Nucleated RBC % (auto) 0.4 H Anion Gap 9 L Estim Creat Clear Calc 113.3 Estimated GFR > 60 Random Glucose 89 Calcium 7.6 L Total Bilirubin 1.1 H Direct Bilirubin 0.4 AST 27 ALT 35 H Alkaline Phosphatase 83 Total Protein 4.5 L Albumin 2.0 L Blood Type A Positive Antibody Screen NEGATIVE Crossmatch See Detail Microbiology Microbiology Results: Microbiology 01/16/24 13:27 Blood Culture - Final Blood - Venous No growth after 5 days. 01/16/24 13:09 Blood Culture - Final Blood - Venous No growth after 5 days. Assessment and Plan (1) Multifocal pneumonia: Status: Acute (2) ABLA (acute blood loss anemia): Status: Acute (3) Hematoma of left lower extremity: Status: Acute Plan This is an 83 yo female with PMH of PAF on eliquis, HLD, HTN, s/p IMN of L femur for periprosthetic fracture on 01/07 - admitted and treated here 01/05-01/11 had acute blood anemia post hemoglobin 9.6 - 6.9 was transfused 2UPRBC. Was discharged to [facility] and returns with recurrent anemia found to have multifocal pneumonia acute on chronic anemia due to blood loss from hematoma due to recent surgery and AC with Eliquis Repeat hematocrit dropped significantly from 26.1-19, no active bleeding noted no hematemesis, no melena ,question delusional/from left thigh hematoma, clinically no worsening left thigh swelling, order 2 units prbc Follow CBC q.12 hours, repeat stool guaiac, normal iron studies recently IMN 01/07 for femur fracture and on eliquis for afib/dvt ppx following surgery Initial CT left leg with subq contusion/hematoma in the anterior subcutaneous soft tissues and anterior muscle compartment of the left thigh Eliquis was discontinued on admission, 2U blood given on 01/15 with appropriate rise, hematocrit dropped again on 01/16, received 1 additional unit. on 01/18 noted acute drop in h/h to 6.3/20.1%. 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 Large hematoma in the anterior compartment muscles of the thigh increased in size from 01/16/2024. Patient underwent aortogram with left lower extremity runoff and left profundus femoris artery stenting by Dr. Ford 01/20 postprocedure patient remains hemodynamically stable Continue IV morphine /as needed oxycodone DC IV fluids. Follow CBC q.12 hours, repeat stool guaiac Multifocal pneumonia with possible sepsis white count normalized, afebrile procalcitonin 1.32, repeat down to 0.37 one episode of hypotension could be from anemia. blood pressure has improved and is stable. Concern for aspiration ,on iv unasyn (initiated 01/15) will DC antibiotic 01/22 after total 7 day treatment seen by speech, diet upgraded to NDD3, with thin liqs; 1:1 feeds aspiration precautions blood cultures negative times 48 hours Paroxysmal atrial fibrillation- stable heart rate with episodes of intermittent rapid ventricular response , no repeat episodes in 48 hours continue po metoprolol Eliquis on hold , will resume after discussing with vascular surgery once hematocrit stabilizes toxic metabolic encephalopathy on a background of multifactorial cognitive impairment. likely due to acute illness, acute anemia, recent surgery, rehab stay and recent hospitalization UA negative/ammonia normal, LFTs trending down ,stable BMP seen by psych last hospitalization, does NOT have capacity to make medical decisions - HCP is daughter Yenni continue namenda Continue gabapentin elevated trops likely due to demand related to anemia trops have remained flat no chest pain elevated LFTS Elevated bili likely due to hemolysis , significantly improved, LFTs trending down will resume statins upon discharge left femur fracture s/p IMN 01/07 continue analgesics continue bowel regimen ,seen by ortho HTN Stable blood pressure continue metoprolol 25 mg daily Morbid obesity bmi 39.1 recommend low-calorie diet weight loss code status- full code DVT prophylaxis- SCPs requires ongoing inpatient stay due to acute blood loss anemia requiring blood transfusion, multifocal pneumonia requiring IV antibiotics, specialist evaluation, and close monitoring of blood pressure given her age and comorbidities can not be done in the lesser acute setting. Quality Stroke Does the patient have a stroke diagnosis?: No VTE Prior VTE?: No VTE Risk Level:: Medical - moderate - high VTE Device Contraindication: N/A - Device Ordered VTE Drug Contraindication: Treatment Not Indicated
--- NOTE | 2024-01-22 13:26 | MHC.CM.PN ---
Emr reviewed, cm attmepted to contac tpt's dtr/hcp Yenni at 1:22pm (#on file) to discuss dispo after call from brother Jimbo who was concerned that pt was not receiving enough therapy there, Yenni did not answer and detailed message left w/request for call back, cm will cont to follow dc needs.
--- NOTE | 2024-01-22 14:06 | HO.WOUND ---
Wound Consult: Initial 83yr old? female admitted to [facility] on 01/15 - See progress notes and H&P for detailed history.? Wound consult placed for coccyx and left heel wounds POA.? Patient agreeable to assessment and photo documentation.? The patients baseline was slightly disorientated but easy to redirect however once movement was initiated the patient began to scream and preceded to scream throughout assessment. She was not easily distracted for brief period she stopped yelling and clearly was able to articulate she was not in pain. Patient, Family (Daughter Yenni) and direct care team educated on the importance of repositioning despite her calling out and the patient screaming both the patient and daughter report understanding. The left heel and sacrum were assessed see below for details. Of note the left leg over all has significant swelling the left thigh is firm swelling. The anterior thigh incision remains well approximated but there is concern for the swelling to impact the incision - direct care team aware and reports notified providers. Sacrum (Left) Etiology:??Deep Tissue Injury Present on Admission Measurements:see charting for detailed measurements Wound Bed: dark maroon intact nonblanchable tissue (Right side sacrum has similar area but remains blanchable Drainage / Odor: None Edges: ? irregular Estelle wound: ?MASD to Perianal area No Induration, Fluctuance or Warmth noted Pain: patient cried out throughout assessment - difficult to assess pain level in direct relation to current locations Goals of Treatment: ? Off Load Pressure - Foam sacral dressing to aid in pressure redistribution Left Heel Etiology: ??Deep Tissue Injury in Evolution Present on Admission Measurements: 2cm x 3cm Wound Bed: Intact dark purple nonblanchable tissue with loose lifting epidermal layer - wound bed in evolution Drainage / Odor: None Edges: ? irregular Estelle wound: ?red pink slow to schuyler - No Induration, Fluctuance or Warmth noted Pain: patient reports pain throughout visit Goals of Treatment: Off Load Pressure - Skin prep to protect from friction and Heel protector boot to off load pressure Recommendations: 1. Turn and Reposition every 2 hours and as needed for patient comfort.? Use pillows or wedges to support off loading positions. 2. Off Load all bony prominences with use of pillows and heel boots if needed.? Apply Preventative foams where needed. ? 3. Monitor for incontinence and moisture control, use barrier creams when needed for prevention and treatment. 4. Provide adequate and supplemental nutrition.? 5. Continue low air loss mattress. 6. Left Heel - Apply Skin prep. Apply heel protector boot to off load heel from bed surface. 7. Sacrum - Routine cleansing. Apply Sacral foam dressing peel back and assess Q shift and change every 3 days and PRN. Apply barrier cream to perineal / perianal area to protect from moisture. Re-consult wound care Nurse for wound deterioration or wound changes.
--- NOTE | 2024-01-22 16:09 | PC.NURSE ---
At ~1445 while doig routine CMS/pulse checks on pt, left upper thigh noted to be a little more swollen/hard than earlier today. Dr. Iyer notified and at bedside to observe. Pt made NPO per Dr. Ford, will cont to monitor. Pts b/l dosalis pedis pulses able to be heard on doppler.
[2024-01-22 19:05] LABS: Hematocrit 25.5 % (37.0-47.0); Hemoglobin 8.2 g/dl (12.0-16.0); Mean Corpuscular HGB Conc 32.2 g/dl (31.0-35.0); Mean Corpuscular Hemoglobin 29.8 pg (27.0-33.0); Mean Corpuscular Volume 92.7 fL (80.0-98.0); Mean Platelet Volume 12.1 fL (9.4-12.3); NRBC Pct Auto 0.7 /100WBC (0.0-0.2); Platelet Count 150 X10*3/uL (160-400); Red Blood Count 2.75 X10*6/uL (4.20-5.50); Red Cell Distribution Width 17.2 % (11.0-16.0); White Blood Count 8.2 X10*3/uL (4.8-10.8)
[2024-01-22] MEDS: Sennosides 8.6 MG TABLET 17.2 MG PO (19:29)
[2024-01-22] MEDS: Gabapentin 100 MG CAPSULE PO (19:29)
[2024-01-22] MEDS: Morphine Sulfate 2 MG/ML CARTRIDGE IVPUSH (22:04)
[2024-01-23] VITALS (27 sets, daily range): BP systolic 109–208; BP diastolic 38–96; PULSE 69–94; RESP 12–20; TEMP 36.3–37.3; O2SAT 93–99; BMI 39.1
[2024-01-23] MEDS: Ampicillin Sodium/Sulbactam Na 1.5 GM in 0.9 % Sodium Chloride 100 ML IV ×2 (00:12→05:52)
[2024-01-23 06:56] LABS: Hematocrit 24.5 % (37.0-47.0); Hemoglobin 8.1 g/dl (12.0-16.0); Mean Corpuscular HGB Conc 33.1 g/dl (31.0-35.0); Mean Corpuscular Hemoglobin 30.7 pg (27.0-33.0); Mean Corpuscular Volume 92.8 fL (80.0-98.0); Mean Platelet Volume 11.3 fL (9.4-12.3); Platelet Count 187 X10*3/uL (160-400); Red Blood Count 2.64 X10*6/uL (4.20-5.50); Red Cell Distribution Width 17.7 % (11.0-16.0); White Blood Count 6.7 X10*3/uL (4.8-10.8)
[2024-01-23 07:03] LABS: NRBC Pct Auto 1.1 /100WBC (0.0-0.2)
--- NOTE | 2024-01-23 08:02 | HO.VASCPN ---
Subjective Subjective Date of Service: 01/23/24 Patient reports: still having pain Interval history: Very pleasant 83-year-old female presents for follow-up regarding left thigh hematoma and bleeding. She would undergone orthopedic intervention approximately a week ago. Subsequently this past Saturday she had undergone stenting of the left profundus femorals. Appears to be doing relatively well but the hemoglobin did drop again. She was transfused and at the current time hemoglobin is stable and she appears to be hemodynamically stable. Her left thigh is extremely full and she is in a fair amount of pain. She now presents for follow-up. Physical Exam Vital Signs: Vital Signs: Last Vital Signs Temp 98.8 F 01/23/24 07:48 Pulse 80 01/23/24 07:48 Resp 19 01/23/24 07:48 BP 144/64 H 01/23/24 07:48 Pulse Ox 95 01/23/24 07:48 O2 Del Method Room Air 01/23/24 07:48 BMI result Body Mass Index 39.1 Const: General: cooperative, healthy appearing and comfortable Orientation/consciousness: oriented to person, oriented to place and oriented to time HEENT: Head: Yes normal to inspection Neck: Neck: Yes normal visual inspection Carotids: no bruits Chest: Chest palpation & inspection: normal inspection of the chest Resp: Effort & Inspection: normal respiratory effort and able to speak in complete sentences Auscultation: clear to auscultation bilaterally, no crackles, no rales, no rhonchi and no wheezes Cardio: Other: Bilateral DP signals. She does have motor and sensation of that left foot. Rate: regular rate Rhythm: regular rhythm Heart sounds: S1 normal heart sound present and S2 normal heart sound present Bruits: no carotid bruits Peripheral pulses: Peripheral pulses 2+ throughout GI: Inspection: Yes normal to inspection Skin: Wounds: no wounds Hair: normal Neuro: General: oriented to person, oriented to place and oriented to time Cranial nerves: Yes CN's II-XII intact bilaterally and Yes Normal hearing present Cognition (Neuro): normal cognition Motor exam (neuro): 5/5 motor strength present throughout Extrem: Other: Very full left thigh. Skin is tense. Tender to touch. General: No clubbing, No cyanosis and No edema Psych: Appearance: grossly normal Mental Status: mental status grossly normal Speech and movement: Normal speech and movement present Progress Note: A&P Assessment and plan (1) Hematoma of left lower extremity: Status: Acute Plan In short patient has significant left thigh hematoma. She will require left leg exploration and possible left thigh hematoma evacuation. Risks benefits complications were discussed in detail with the patient's daughter Yenni who is healthcare proxy. We will schedule for operating room as soon as possible. Thank you for allowing us to assist in her care. Time Spent With Patient Time: Total time managing care of this patient today ____ minutes. Procedures Date of Service Date of Service: 01/23/24 Quality Stroke Does the patient have a stroke diagnosis?: No VTE Prior VTE?: No VTE Risk Level:: Medical - moderate - high VTE Device Contraindication: N/A - Device Ordered VTE Drug Contraindication: Treatment Not Indicated
[2024-01-23] MEDS: Magnesium Oxide 400 MG TABLET PO (08:19)
[2024-01-23] MEDS: Docusate Sodium 100 MG CAPSULE PO ×2 (08:19→19:58)
[2024-01-23] MEDS: Mirabegron 50 MG TAB.ER.24H PO (08:19)
[2024-01-23] MEDS: Memantine HCl 5 MG TABLET PO ×2 (08:19→19:59)
[2024-01-23] MEDS: Ferrous Sulfate 324 MG TABLET.DR PO (08:19)
[2024-01-23] MEDS: Metoprolol Succinate ER 25 MG TAB.ER.24H PO (08:19)
[2024-01-23] MEDS: oxyCODONE HCl Immed Release 5 MG TABLET PO ×3 (08:20→19:59)
[2024-01-23] MEDS: 0.9 % Sodium Chloride Flush 3 ML SYRINGE IVFLUSH ×2 (08:20→14:51)
--- NOTE | 2024-01-23 08:42 | HO.ANESPROP2 ---
HPI - Anesthesia Eval Consult details Narrative: 83 yo female patient. S/p Left retrograde IM Nailing of Left distal femur periprosthetic fracture. Post op bleeding. Received 2uPRBC Admitted from rehab 01/16/24 with H/H 4.03/20. Transfused 2u PRBC. S/p stent Left profundus femoris 01/21/24. Now with Left thigh hematoma. For evacuation. Total of 7u PRBC received since admission 01/16/24. PMFSH Active Problems Active Problems: All Active Problems Hematoma of left lower extremity (Acute) PAD (peripheral artery disease) (Acute) Multifocal pneumonia (Acute) Acute leg pain (Acute) Elevated WBC count (Acute) ABLA (acute blood loss anemia) (Acute) Acute blood loss anemia (Acute) Comminuted fracture of shaft of femur (Acute) Fall (Acute) Past Medical History Medical History (Updated 01/20/24 @ 00:02 by Jesus Motta) Paroxysmal atrial fibrillation Peripheral neuropathy TIA (transient ischemic attack) PAD (peripheral artery disease) Foot drop Carotid artery stenosis Afib Hyperlipidemia Anemia Hypertension Family History Family history of problems with anesthesia: No Surgical History Surgical History (Updated 01/23/24 @ 09:05 by Karissa Alonzo) S/P aortogram with runoff H/O foot surgery History of bilateral knee replacement H/O tubal ligation History of cholecystectomy H/O endarterectomy History of Problems with Anesthesia: No Social History Social History Household Members: Children and Caregiver Housing: House Do you presently have visiting nurse or other home services: Yes Unable to assess alcohol history related to: Unable to respond Alcohol intake: former Comment: skin is taut left leg, patient states sensation WNL, doppler pulses. Patient Tobacco Use Status: Never used Tobacco Advance Directives Date on File: 01/13/24 service: No Meds Allergies Allergy/AdvReac Type Severity Reaction Status Date / Time gentamicin [GENTAMICIN] Allergy Intermediate SWELLING Verified 01/23/24 08:27 sulfamethoxazole Allergy Intermediate RASH Verified 01/23/24 08:27 [From BACTRIM] trimethoprim [From BACTRIM] Allergy Intermediate RASH Verified 01/23/24 08:27 Active Medications: Current Medications Acetaminophen (Acetaminophen 325 Mg Tablet) 650 mg PO Q6H PRN PRN Reason: Pain, Mild (Pain Scale 1-3) Last Admin: 01/19/24 21:04 Dose: 650 mg Docusate Sodium (Docusate Sodium 100 Mg Capsule) 100 mg PO BID [facility] Last Admin: 01/23/24 08:19 Dose: 100 mg Ferrous Sulfate (Ferrous Sulfate 324 Mg Tablet.Dr) 324 mg PO DAILY [facility] Last Admin: 01/23/24 08:19 Dose: 324 mg Gabapentin (Gabapentin 100 Mg Capsule) 100 mg PO BEDTIME [facility] Last Admin: 01/22/24 19:29 Dose: 100 mg Ampicillin Sodium/Sulbactam (Sodium 1.5 gm/ Sodium Chloride) 100 mls @ 200 mls/hr IV Q6H [facility] Last Infusion: 01/23/24 06:22 Dose: Infused Magnesium Oxide (Magnesium Oxide 400 Mg Tablet) 400 mg PO DAILY [facility] Last Admin: 01/23/24 08:19 Dose: 400 mg Memantine (Memantine Hcl 5 Mg Tablet) 5 mg PO BID [facility] Last Admin: 01/23/24 08:19 Dose: 5 mg Metoprolol Succinate (Metoprolol Succinate Er 25 Mg Tab.Er.24h) 25 mg PO DAILY [facility]; Protocol Last Admin: 01/23/24 08:19 Dose: 25 mg Mirabegron (Mirabegron 50 Mg Tab.Er.24h) 50 mg PO DAILY [facility] Last Admin: 01/23/24 08:19 Dose: 50 mg Morphine Sulfate (Morphine Sulfate 2 Mg/Ml Cartridge) 2 mg IVPUSH Q4H PRN; Protocol PRN Reason: Pain, Severe (Pain Scale 7-10) Last Admin: 01/22/24 22:04 Dose: 2 mg Ondansetron HCl (Ondansetron Hcl 4 Mg/2 Ml Vial) 4 mg IVPUSH Q8H PRN PRN Reason: Nausea and Vomiting Last Admin: 01/16/24 21:30 Dose: 4 mg Oxycodone HCl (Oxycodone Hcl Immed Release 5 Mg Tablet) 5 mg PO TID [facility] Last Admin: 01/23/24 08:20 Dose: 5 mg Polyethylene Glycol (Polyethylene Glycol 3350 17 Gm Powd.Pack) 17 gm PO DAILY [facility] Last Admin: 01/23/24 08:26 Dose: Not Given Senna (Sennosides 8.6 Mg Tablet) 17.2 mg PO BEDTIME [facility] Last Admin: 01/22/24 19:29 Dose: 17.2 mg Sodium Chloride (0.9 % Sodium Chloride Flush 3 Ml Syringe) 3 ml IVFLUSH QSHIFT [facility] Last Admin: 01/23/24 08:20 Dose: 3 ml Home Medications ?Medication ?Instructions ?Recorded ?Confirmed ?Last Taken ?Type apixaban 5 mg tablet (Eliquis) 5 mg PO BID 01/06/24 01/23/24 01/16/24 History atorvastatin 10 mg tablet 10 mg PO BEDTIME 01/06/24 01/16/24 01/05/24 History cholecalciferol (vitamin D3) 25 25 mcg PO DAILY 01/06/24 01/16/24 01/06/24 History mcg (1,000 unit) tablet ferrous sulfate 324 mg (65 mg 324 mg PO DAILY 01/06/24 01/16/24 01/06/24 History iron) tablet,delayed release gabapentin 100 mg capsule 100 mg PO TID 01/06/24 01/16/24 01/06/24 History lisinopril 10 mg tablet 10 mg PO DAILY 01/06/24 01/16/24 01/06/24 History magnesium oxide 400 mg PO DAILY 01/06/24 01/16/24 01/06/24 History memantine 5 mg tablet 5 mg PO BID 01/06/24 01/16/24 01/06/24 History metoprolol succinate 25 mg 25 mg PO DAILY 01/06/24 01/16/24 01/06/24 History tablet,extended release 24 hr mirabegron 50 mg tablet,extended 50 mg PO DAILY 01/06/24 01/16/24 01/06/24 History release 24 hr (Myrbetriq) multivitamin 1 tab PO DAILY 01/06/24 01/16/24 01/06/24 History acetaminophen 500 mg tablet 1,000 mg PO TID 01/16/24 01/16/24 Unknown History docusate sodium 100 mg tablet 100 mg PO BID 01/16/24 01/16/24 Unknown History oxycodone 5 mg tablet 2.5 mg PO Q6H PRN Pain, 01/16/24 01/16/24 Unknown History Moderate(Pain Scale 4-6) oxycodone 5 mg tablet 5 mg PO Q6H PRN Pain (Scale Score 01/16/24 01/16/24 Unknown History 7-10) polyethylene glycol 3350 17 17 g PO DAILY 01/16/24 01/16/24 Unknown History gram/dose oral powder sennosides 8.6 mg tablet (senna) 17.2 mg PO BEDTIME 01/16/24 01/16/24 Unknown History Exam Height,Weight and Vital Signs: Height 5 ft 4 in Weight 103.3 kg Last Vital Signs Temp 98.8 F 01/23/24 07:48 Pulse 80 01/23/24 07:48 Resp 19 01/23/24 07:48 BP 144/64 H 01/23/24 07:48 Pulse Ox 95 01/23/24 07:48 O2 Del Method Room Air 01/23/24 07:48 Pertinent Lab Results Pertinent Lab Results: Laboratory Tests 01/16/24 01/16/24 01/16/24 11:42 12:17 12:18 WBC 16.1 H RBC 1.43 L D Hgb 4.6 L* D Hct 14.3 L* D MCV 100.0 H MCH 32.2 MCHC 32.2 RDW 15.8 Plt Count 304 D MPV 11.4 Immature Gran % (Auto) 1.2 H Neut % (Auto) 81.4 H Lymph % (Auto) 11.1 L [place] % (Auto) 6.1 Eos % (Auto) 0.1 Baso % (Auto) 0.1 Lymph # (Auto) 1.8 [place] # (Auto) 1.0 Eos # (Auto) 0.0 Baso # (Auto) 0.0 Abs Immat Gran (auto) 0.20 H Absolute Neuts (auto) 13.1 H Absolute Nucleated RBC 0.110 H Nucleated RBC % (auto) 0.7 H Smear Path Review PT INR APTT 25.4 L aPTT Heparin Protocol Sodium 138 Potassium 4.5 Chloride 108 Carbon Dioxide 22 Anion Gap 13 BUN 36 H Creatinine 0.71 Estim Creat Clear Calc 70.2 Estimated GFR > 60 POC Glucose 102 Random Glucose 105 Lactic Acid Calcium 8.1 L Magnesium 2.6 Total Bilirubin 1.3 H Direct Bilirubin 0.5 AST 119 H ALT 107 H Alkaline Phosphatase 91 Ammonia Total Creatine Kinase Troponin I High Sens 65.6 H* B-Natriuretic Peptide 124 H Total Protein 5.3 L Albumin 2.6 L Procalcitonin 1.32 Urine Color Urine Appearance Urine pH Ur Specific [place] Urine Protein Urine Glucose (UA) Urine Ketones Urine Blood Urine Nitrite Ur Leukocyte Esterase Urine RBC Urine WBC Ur Squamous Epith Cells Urine Bacteria Hyaline Casts Urine Osmolality Ur Random Sodium Stool Occult Blood Influenza Type A (PCR) Influenza Type B (PCR) RSV RNA Qual (PCR) SARS-CoV-2 RNA (RT-PCR) Blood Type Antibody Screen Crossmatch 01/16/24 01/16/24 01/16/24 12:20 13:09 13:47 WBC RBC Hgb Hct MCV MCH MCHC RDW Plt Count MPV Immature Gran % (Auto) Neut % (Auto) Lymph % (Auto) [place] % (Auto) Eos % (Auto) Baso % (Auto) Lymph # (Auto) [place] # (Auto) Eos # (Auto) Baso # (Auto) Abs Immat Gran (auto) Absolute Neuts (auto) Absolute Nucleated RBC Nucleated RBC % (auto) Smear Path Review PT INR APTT aPTT Heparin Protocol Sodium Potassium Chloride Carbon Dioxide Anion Gap BUN Creatinine Estim Creat Clear Calc Estimated GFR POC Glucose Random Glucose Lactic Acid 1.1 Calcium Magnesium Total Bilirubin Direct Bilirubin AST ALT Alkaline Phosphatase Ammonia Total Creatine Kinase Troponin I High Sens B-Natriuretic Peptide Total Protein Albumin Procalcitonin Urine Color Urine Appearance Urine pH Ur Specific [place] Urine Protein Urine Glucose (UA) Urine Ketones Urine Blood Urine Nitrite Ur Leukocyte Esterase Urine RBC Urine WBC Ur Squamous Epith Cells Urine Bacteria Hyaline Casts Urine Osmolality Ur Random Sodium Stool Occult Blood Influenza Type A (PCR) NEGATIVE Influenza Type B (PCR) NEGATIVE RSV RNA Qual (PCR) NEGATIVE SARS-CoV-2 RNA (RT-PCR) NEGATIVE Blood Type A Positive Antibody Screen NEGATIVE Crossmatch See Detail 01/16/24 01/16/24 01/16/24 14:57 16:19 Unknown WBC RBC Hgb Hct MCV MCH MCHC RDW Plt Count MPV Immature Gran % (Auto) Neut % (Auto) Lymph % (Auto) [place] % (Auto) Eos % (Auto) Baso % (Auto) Lymph # (Auto) [place] # (Auto) Eos # (Auto) Baso # (Auto) Abs Immat Gran (auto) Absolute Neuts (auto) Absolute Nucleated RBC Nucleated RBC % (auto) Smear Path Review PT INR APTT aPTT Heparin Protocol Sodium Potassium Chloride Carbon Dioxide Anion Gap BUN Creatinine Estim Creat Clear Calc Estimated GFR POC Glucose Random Glucose Lactic Acid Calcium Magnesium Total Bilirubin Direct Bilirubin AST ALT Alkaline Phosphatase Ammonia Total Creatine Kinase Troponin I High Sens 74.1 H* B-Natriuretic Peptide Total Protein Albumin Procalcitonin Urine Color Yellow Urine Appearance Clear Urine pH 6.5 Ur Specific [place] 1.020 Urine Protein Negative Urine Glucose (UA) Negative Urine Ketones 40 Urine Blood Negative Urine Nitrite Negative Ur Leukocyte Esterase Negative Urine RBC Urine WBC Ur Squamous Epith Cells Urine Bacteria Hyaline Casts Urine Osmolality Cancelled Ur Random Sodium Cancelled Stool Occult Blood NEGATIVE Influenza Type A (PCR) Influenza Type B (PCR) RSV RNA Qual (PCR) SARS-CoV-2 RNA (RT-PCR) Blood Type Antibody Screen Crossmatch 01/17/24 01/17/24 01/17/24 00:39 05:19 18:24 WBC 14.6 H RBC 2.37 L D Hgb 7.2 L D 7.4 L 8.0 L Hct 21.5 L D 22.7 L 23.5 L MCV 95.8 MCH 31.2 MCHC 32.6 RDW 16.4 H Plt Count 285 MPV 11.0 Immature Gran % (Auto) 2.3 H Neut % (Auto) 77.9 H Lymph % (Auto) 11.5 L [place] % (Auto) 7.8 Eos % (Auto) 0.2 Baso % (Auto) 0.3 Lymph # (Auto) 1.7 [place] # (Auto) 1.1 Eos # (Auto) 0.0 Baso # (Auto) 0.0 Abs Immat Gran (auto) 0.34 H Absolute Neuts (auto) 11.3 H Absolute Nucleated RBC 0.270 H Nucleated RBC % (auto) 1.9 H Smear Path Review PT INR APTT aPTT Heparin Protocol Sodium 139 Potassium 3.9 Chloride 108 Carbon Dioxide 24 Anion Gap 11 L BUN 30 H Creatinine 0.56 Estim Creat Clear Calc 89.1 Estimated GFR > 60 POC Glucose Random Glucose 103 Lactic Acid Calcium 8.3 L Magnesium Total Bilirubin 1.3 H Direct Bilirubin 0.5 AST 115 H ALT 130 H Alkaline Phosphatase 88 Ammonia Total Creatine Kinase Troponin I High Sens B-Natriuretic Peptide Total Protein 5.3 L Albumin 2.7 L Procalcitonin Urine Color Urine Appearance Urine pH Ur Specific [place] Urine Protein Urine Glucose (UA) Urine Ketones Urine Blood Urine Nitrite Ur Leukocyte Esterase Urine RBC Urine WBC Ur Squamous Epith Cells Urine Bacteria Hyaline Casts Urine Osmolality Ur Random Sodium Stool Occult Blood Influenza Type A (PCR) Influenza Type B (PCR) RSV RNA Qual (PCR) SARS-CoV-2 RNA (RT-PCR) Blood Type Antibody Screen Crossmatch 01/18/24 01/18/24 01/18/24 06:44 12:13 12:53 WBC 13.3 H RBC 2.55 L Hgb 7.9 L Hct 24.8 L MCV 97.3 MCH 31.0 MCHC 31.9 RDW 18.0 H Plt Count 291 MPV 11.5 Immature Gran % (Auto) 2.6 H Neut % (Auto) 66.5 Lymph % (Auto) 21.5 [place] % (Auto) 8.6 Eos % (Auto) 0.5 Baso % (Auto) 0.3 Lymph # (Auto) 2.9 [place] # (Auto) 1.2 Eos # (Auto) 0.1 Baso # (Auto) 0.0 Abs Immat Gran (auto) 0.34 H Absolute Neuts (auto) 8.9 H Absolute Nucleated RBC 0.280 H Nucleated RBC % (auto) 2.1 H Smear Path Review PT INR APTT aPTT Heparin Protocol Sodium 140 Potassium 3.7 Chloride 109 H Carbon Dioxide 25 Anion Gap 10 L BUN 23 H Creatinine 0.52 Estim Creat Clear Calc 95.9 Estimated GFR > 60 POC Glucose Random Glucose 113 Lactic Acid Calcium 8.0 L Magnesium Total Bilirubin 1.6 H Direct Bilirubin 0.6 H AST 83 H ALT 122 H Alkaline Phosphatase 104 Ammonia 25 Total Creatine Kinase Troponin I High Sens B-Natriuretic Peptide Total Protein 5.2 L Albumin 2.6 L Procalcitonin 0.37 Urine Color Dark Yellow Urine Appearance Cloudy Urine pH 5.5 Ur Specific [place] >= 1.030 H Urine Protein Trace Urine Glucose (UA) Negative Urine Ketones Trace Urine Blood Negative Urine Nitrite Negative Ur Leukocyte Esterase Trace H Urine RBC 0-2 Urine WBC 0-5 Ur Squamous Epith Cells 0-2 Urine Bacteria None Seen Hyaline Casts 3-5 Urine Osmolality Ur Random Sodium Stool Occult Blood Influenza Type A (PCR) Influenza Type B (PCR) RSV RNA Qual (PCR) SARS-CoV-2 RNA (RT-PCR) Blood Type Antibody Screen Crossmatch 01/19/24 01/19/24 01/19/24 07:24 14:56 21:02 WBC 11.3 H 10.0 RBC 2.57 L 2.78 L Hgb 6.3 L* D 7.9 L D 8.5 L Hct 20.1 L* 24.7 L D 26.3 L MCV 96.1 94.6 MCH 30.7 30.6 MCHC 32.0 32.3 RDW 18.9 H 18.2 H Plt Count 208 D 202 MPV 11.6 11.1 Immature Gran % (Auto) 1.4 H Neut % (Auto) 83.5 H Lymph % (Auto) 6.9 L [place] % (Auto) 7.4 Eos % (Auto) 0.5 Baso % (Auto) 0.3 Lymph # (Auto) 0.8 L [place] # (Auto) 0.8 Eos # (Auto) 0.1 Baso # (Auto) 0.0 Abs Immat Gran (auto) 0.16 H Absolute Neuts (auto) 9.4 H Absolute Nucleated RBC 0.110 H 0.080 H Nucleated RBC % (auto) 1.0 H 0.8 H Smear Path Review PT 12.4 INR 1.0 APTT aPTT Heparin Protocol 26.7 L Sodium 142 Potassium 3.8 Chloride 109 H Carbon Dioxide 25 Anion Gap 12 BUN 17 H Creatinine 0.52 Estim Creat Clear Calc 95.9 Estimated GFR > 60 POC Glucose Random Glucose 106 Lactic Acid Calcium 8.2 L Magnesium Total Bilirubin 1.7 H 1.7 H Direct Bilirubin 0.7 H AST 55 H 48 H ALT 86 H 82 H Alkaline Phosphatase 102 93 Ammonia Total Creatine Kinase 842 H Troponin I High Sens B-Natriuretic Peptide Total Protein 5.2 L 5.2 L Albumin 2.5 L 2.5 L Procalcitonin Urine Color Urine Appearance Urine pH Ur Specific [place] Urine Protein Urine Glucose (UA) Urine Ketones Urine Blood Urine Nitrite Ur Leukocyte Esterase Urine RBC Urine WBC Ur Squamous Epith Cells Urine Bacteria Hyaline Casts Urine Osmolality Ur Random Sodium Stool Occult Blood Influenza Type A (PCR) Influenza Type B (PCR) RSV RNA Qual (PCR) SARS-CoV-2 RNA (RT-PCR) Blood Type Antibody Screen Crossmatch 01/20/24 01/20/24 01/22/24 05:54 18:21 07:03 WBC 9.3 7.7 RBC 2.64 L 1.91 L D Hgb 8.1 L 8.6 L 5.8 L* D Hct 24.8 L 26.1 L 19.0 L* D MCV 93.9 99.5 H D MCH 30.7 30.4 MCHC 32.7 30.5 L RDW 18.9 H 17.9 H Plt Count 187 178 MPV 11.7 11.3 Immature Gran % (Auto) Neut % (Auto) Lymph % (Auto) [place] % (Auto) Eos % (Auto) Baso % (Auto) Lymph # (Auto) [place] # (Auto) Eos # (Auto) Baso # (Auto) Abs Immat Gran (auto) Absolute Neuts (auto) Absolute Nucleated RBC 0.040 H 0.030 H Nucleated RBC % (auto) 0.4 H 0.4 H Smear Path Review PT 12.7 INR 1.0 APTT aPTT Heparin Protocol Sodium 140 141 Potassium 3.6 3.7 Chloride 111 H 112 H Carbon Dioxide 22 24 Anion Gap 11 L 9 L BUN 15 13 Creatinine 0.49 L 0.44 L Estim Creat Clear Calc 101.7 113.3 Estimated GFR > 60 > 60 POC Glucose Random Glucose 91 89 Lactic Acid Calcium 8.0 L 7.6 L Magnesium Total Bilirubin 1.1 H Direct Bilirubin 0.4 AST 27 ALT 35 H Alkaline Phosphatase 83 Ammonia Total Creatine Kinase Troponin I High Sens B-Natriuretic Peptide Total Protein 4.5 L Albumin 2.0 L Procalcitonin Urine Color Urine Appearance Urine pH Ur Specific [place] Urine Protein Urine Glucose (UA) Urine Ketones Urine Blood Urine Nitrite Ur Leukocyte Esterase Urine RBC Urine WBC Ur Squamous Epith Cells Urine Bacteria Hyaline Casts Urine Osmolality Ur Random Sodium Stool Occult Blood Influenza Type A (PCR) Influenza Type B (PCR) RSV RNA Qual (PCR) SARS-CoV-2 RNA (RT-PCR) Blood Type Antibody Screen Crossmatch 01/22/24 01/22/24 01/23/24 08:40 18:38 05:55 WBC 8.2 6.7 RBC 2.75 L D 2.64 L Hgb 8.2 L D 8.1 L Hct 25.5 L D 24.5 L MCV 92.7 D 92.8 MCH 29.8 30.7 MCHC 32.2 33.1 RDW 17.2 H 17.7 H Plt Count 150 L 187 MPV 12.1 11.3 Immature Gran % (Auto) Neut % (Auto) Lymph % (Auto) [place] % (Auto) Eos % (Auto) Baso % (Auto) Lymph # (Auto) [place] # (Auto) Eos # (Auto) Baso # (Auto) Abs Immat Gran (auto) Absolute Neuts (auto) Absolute Nucleated RBC 0.060 H 0.070 H Nucleated RBC % (auto) 0.7 H 1.1 H Smear Path Review PT INR APTT aPTT Heparin Protocol Sodium Potassium Chloride Carbon Dioxide Anion Gap BUN Creatinine Estim Creat Clear Calc Estimated GFR POC Glucose Random Glucose Lactic Acid Calcium Magnesium Total Bilirubin Direct Bilirubin AST ALT Alkaline Phosphatase Ammonia Total Creatine Kinase Troponin I High Sens B-Natriuretic Peptide Total Protein Albumin Procalcitonin Urine Color Urine Appearance Urine pH Ur Specific [place] Urine Protein Urine Glucose (UA) Urine Ketones Urine Blood Urine Nitrite Ur Leukocyte Esterase Urine RBC Urine WBC Ur Squamous Epith Cells Urine Bacteria Hyaline Casts Urine Osmolality Ur Random Sodium Stool Occult Blood Influenza Type A (PCR) Influenza Type B (PCR) RSV RNA Qual (PCR) SARS-CoV-2 RNA (RT-PCR) Blood Type A Positive Antibody Screen NEGATIVE Crossmatch See Detail Assessment and Plan Final Anesthetic Review Family History of Problems with Anesthesia: No History of Problems with Anesthesia: No
--- NOTE | 2024-01-23 09:15 | PC.NURSE ---
Patient arrived to preop with two PRN angios. #20 left AC flushed well, site asymptomatic. IV Site on right arm leaking and half out, IV removed.
[2024-01-23] MEDS: ceFAZolin Sodium/Dextrose,Iso 2 GM/50 ML PIGGYBACK IV (09:35)
--- NOTE | 2024-01-23 10:55 | MHC.CLN ---
RE: CONSULT PT WITH INCREASED NUTRITION RISK R/T PRESSURE INJURIES PO INTAKE VARIABLE RANGING FROM 25-100% PT IS CURRENTLY NPO WHEN DIET TO RESUME; RECOMMEND ADDING ENSURE MAX BID TO PROMOTE WOUND HEALING SUPP TO PROVIDE 300KCALS, 60G PROTEIN MONITOR PO INTAKE AND ENCOURAGE SUPPLEMENTS SEE ALSO FULL CLINICAL NUTRITION ASSESSMENT
--- NOTE | 2024-01-23 11:49 | HO.PM.IMPN ---
Subjective Subjective Date of Service: 01/23/24 Interval History: Patient remains pleasantly confused, complaining of left thigh pain, is NPO for left thigh hematoma evacuation by Dr. Ford, tolerated 2 units of packed RBC yesterday, hematocrit improved from 19 to 24.5, No acute events overnight , noted to have high blood pressures this morning question related to pain. Review of Systems Unable to obtain detailed review of system due to dementia Physical Exam Vital Signs: Vital Signs: Last Vital Signs Temp 99.1 F 01/23/24 10:52 Pulse 86 01/23/24 11:40 Resp 16 01/23/24 11:40 BP 159/86 H 01/23/24 11:40 Pulse Ox 93 01/23/24 11:40 O2 Del Method Room Air 01/23/24 11:40 O2 Flow Rate 6 01/23/24 11:10 BMI result Body Mass Index 39.1 Const: Other: General awake alert, pleasantly confused, in no distress Anicteric sclera Neck supple no JVD. CVS regular rate rhythm, Respiratory lungs clear to auscultation, no respiratory distress, no wheeze, no rhonchi. Gastrointestinal abdomen soft, non tender, bowel sounds audible, no guarding , no rigidity. Extremities left thigh significantly swollen , tense, tender to palpation and with movement, fading ecchymosis, lex intact, no surrounding erythema, Neuro non focal , speech clear. Psych impaired insight Objective Data Active Medications Acetaminophen (Acetaminophen 325 Mg Tablet) 650 mg PO Q6H PRN PRN Reason: Pain, Mild (Pain Scale 1-3) Last Admin: 01/19/24 21:04 Dose: 650 mg Documented By: SAIDA Docusate Sodium (Docusate Sodium 100 Mg Capsule) 100 mg PO BID [facility] Last Admin: 01/23/24 08:19 Dose: 100 mg Documented By: RENETTA Ferrous Sulfate (Ferrous Sulfate 324 Mg Ilia.) 324 mg PO DAILY [facility] Last Admin: 01/23/24 08:19 Dose: 324 mg Documented By: RENETTA Gabapentin (Gabapentin 100 Mg Capsule) 100 mg PO BEDTIME [facility] Last Admin: 01/22/24 19:29 Dose: 100 mg Documented By: VERONICA Ampicillin Sodium/Sulbactam (Sodium 1.5 gm/ Sodium Chloride) 100 mls @ 200 mls/hr IV Q6H [facility] Last Infusion: 01/23/24 06:22 Dose: Infused Documented By: VERONICA Cefotetan Disodium 2 gm/ (Sodium Chloride) 50 mls @ 100 mls/hr IV POSTOP ONE Stop: 01/23/24 22:04 Magnesium Oxide (Magnesium Oxide 400 Mg Tablet) 400 mg PO DAILY [facility] Last Admin: 01/23/24 08:19 Dose: 400 mg Documented By: RENETTA Memantine (Memantine Hcl 5 Mg Tablet) 5 mg PO BID [facility] Last Admin: 01/23/24 08:19 Dose: 5 mg Documented By: RENETTA Metoprolol Succinate (Metoprolol Succinate Er 25 Mg Tab.Er.24h) 25 mg PO DAILY [facility]; Protocol Last Admin: 01/23/24 08:19 Dose: 25 mg Documented By: RENETTA Mirabegron (Mirabegron 50 Mg Tab.Er.24h) 50 mg PO DAILY [facility] Last Admin: 01/23/24 08:19 Dose: 50 mg Documented By: RENETTA Morphine Sulfate (Morphine Sulfate 2 Mg/Ml Cartridge) 2 mg IVPUSH Q4H PRN; Protocol PRN Reason: Pain, Severe (Pain Scale 7-10) Last Admin: 01/22/24 22:04 Dose: 2 mg Documented By: VERONICA Ondansetron HCl (Ondansetron Hcl 4 Mg/2 Ml Vial) 4 mg IVPUSH Q8H PRN PRN Reason: Nausea and Vomiting Last Admin: 01/16/24 21:30 Dose: 4 mg Documented By: FRANCK Oxycodone HCl (Oxycodone Hcl Immed Release 5 Mg Tablet) 5 mg PO TID [facility] Last Admin: 01/23/24 08:20 Dose: 5 mg Documented By: RENETTA Polyethylene Glycol (Polyethylene Glycol 3350 17 Gm Powd.Pack) 17 gm PO DAILY [facility] Last Admin: 01/23/24 08:26 Dose: Not Given Documented By: RENETTA Non-Admin Reason: going for surgery Senna (Sennosides 8.6 Mg Tablet) 17.2 mg PO BEDTIME [facility] Last Admin: 01/22/24 19:29 Dose: 17.2 mg Documented By: VERONICA Sodium Chloride (0.9 % Sodium Chloride Flush 3 Ml Syringe) 3 ml IVFLUSH QSHIFT [facility] Last Admin: 01/23/24 08:20 Dose: 3 ml Documented By: RENETTA Labs 01/23/24 05:55 01/22/24 07:03 Labs: Laboratory Results - last 24 hr 01/22/24 01/22/24 01/23/24 08:40 18:38 05:55 MCV 92.7 D 92.8 MCH 29.8 30.7 MCHC 32.2 33.1 RDW 17.2 H 17.7 H Plt Count 150 L 187 MPV 12.1 11.3 Absolute Nucleated RBC 0.060 H 0.070 H Nucleated RBC % (auto) 0.7 H 1.1 H Blood Type A Positive Antibody Screen NEGATIVE Crossmatch See Detail Assessment and Plan (1) Multifocal pneumonia: Status: Acute (2) ABLA (acute blood loss anemia): Status: Acute (3) Hematoma of left lower extremity: Status: Acute Plan This is an 83 yo female with PMH of PAF on eliquis, HLD, HTN, s/p IMN of L femur for periprosthetic fracture on 01/07 - admitted and treated here 01/05-01/11 had acute blood anemia post hemoglobin 9.6 - 6.9 was transfused 2UPRBC. Was discharged to [facility] and returns with recurrent anemia found to have multifocal pneumonia acute on chronic anemia due to blood loss from hematoma due to recent surgery and AC with Eliquis recently IMN 01/07 for femur fracture and on eliquis for afib/dvt ppx following surgery Initial CT left leg with subq contusion/hematoma in the anterior subcutaneous soft tissues and anterior muscle compartment of the left thigh Eliquis was discontinued on admission, 2U blood given on 01/15 with appropriate rise, hematocrit dropped again on 01/16, received 1 additional unit. on 01/18 noted acute drop in h/h to 6.3/20.1%. 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 Large hematoma in the anterior compartment muscles of the thigh increased in size from 01/16/2024. Patient underwent aortogram with left lower extremity runoff and left profundus femoris artery Stenting by Dr. Ford 01/20 postprocedure patient remains hemodynamically stable Repeat hematocrit on 01/21 dropped to 19 patient received 2 units of packed RBC patient noted to have worsening swelling left thigh This morning hematocrit stable 24.5 due to worsening left thigh swelling patient is being taken to OR for hematoma evacuation by vascular surgery Follow CBC and clinical course closely. Multifocal pneumonia with possible sepsis white count normalized, afebrile procalcitonin 1.32, repeat down to 0.37 one episode of hypotension could be from anemia. blood pressure has improved and is stable. Concern for aspiration , will DC IV Unasyn finishing 7 day course of treatment ending today seen by speech, diet upgraded to NDD3, with thin liqs; 1:1 feeds aspiration precautions blood cultures negative times 48 hours Paroxysmal atrial fibrillation- stable heart rate with episodes of intermittent rapid ventricular response , no repeat episodes in 48 hours continue po metoprolol Eliquis on hold , will resume after discussing with vascular surgery once hematocrit stabilizes toxic metabolic encephalopathy on a background of multifactorial cognitive impairment. likely due to acute illness, acute anemia, recent surgery, rehab stay and recent hospitalization UA negative/ammonia normal, LFTs trending down ,stable BMP seen by psych last hospitalization, does NOT have capacity to make medical decisions - HCP is daughter Yenni continue namenda and gabapentin elevated trops likely due to demand related to anemia trops have remained flat no chest pain elevated LFTS Elevated bili likely due to hemolysis , significantly improved, LFTs trending down will resume statins upon discharge left femur fracture s/p IMN 01/07 continue analgesics continue bowel regimen ,seen by ortho no further intervention planned HTN Elevated blood pressure likely due to pain, address hematoma, follow BP and continue metoprolol 25 mg daily Morbid obesity bmi 39.1 recommend low-calorie diet weight loss code status- full code DVT prophylaxis- SCPs requires ongoing inpatient stay due to acute blood loss anemia requiring blood transfusion, and requiring hematoma evacuation by vascular surgery scheduled for today. Quality Stroke Does the patient have a stroke diagnosis?: No VTE Prior VTE?: No VTE Risk Level:: Medical - moderate - high VTE Device Contraindication: N/A - Device Ordered VTE Drug Contraindication: Treatment Not Indicated
--- NOTE | 2024-01-23 11:59 | P.OP_ITS ---
Operative Note Operative Note Date of Service: 01/23/24 Narrative: Operative note by [facility] Preoperative diagnosis: 1. Left thigh hematoma 2. Concern of compartment syndrome Postoperative diagnosis: Same Procedure:1. Left leg exploration 2. Evacuation of thigh hematoma 3. Left thigh fasciotomies Surgeon:Harlan Ford M.D. Commissary Officer: Nikhil HERRERA Anesthesia: General Specimens: 1 Drains: None Estimated blood loss: 100 mL new blood; 300 mL old blood Indications: Very pleasant 83-year-old female with a prior history left femur fracture she would undergone stenting the left profundus femorals. She continues to have significantly swollen painful thigh. She now presents to us for operative intervention. The patient's daughter has signed the informed consent after reviewing risks, complications, benefits, and alternatives previously discussed with the patient. The patient was given the opportunity to ask any additional questions or voice any concerns. All questions were answered to the patient's satisfaction. Procedure in detail: Patient was brought to the operating room prior to which a time-out was called for patient identification and site verification. Left leg was prepped and draped in standard surgical fashion. The previous left upper thigh incision skin clips were removed and the incision was opened up. We extended this incision to try to evacuate some hematoma. There is minimal mount achieved from here. Due to the significant swelling and tenseness of the thigh was decided that a medial and lateral incision was needed. A proximally 3-4 being fingerbreadths below the femur on the medial and lateral aspect proximally a 10-12 cm incision was created. Once down we got to the fascia and using Metzenbaum fasciotomies were good undertaken and opened up both fascial layers. We then manually evacuated the hematoma. 300 cc of old clot was removed from the thigh. Once this was all done we irrigated the wound. Adequate hemostasis was achieved. Skin was reapproximated loosely using 2 0 nylon in a mattress fashion and skin clips. All 3 incisions were closed in a similar fashion. Patient tolerated the procedure well. Returned to recovery with stable vitals. Patient will be transferred to ICU. Patient's daughter was informed after the procedure. This note is constructed using voice recognition software. While every effort has been made to ensure accuracy, mechatronics engineer errors may have been included. Thank you for allowing me to participate in the care of your patient. Yours sincerely, Harlan Ford MD, FACS, R.P.V.I.
--- NOTE | 2024-01-23 12:00 | PC.NURSE ---
Pt taken to OR at ~[address] Ford. Will tx to ICU after, report given to Brittany
[2024-01-23] MEDS: Acetaminophen 1,000 MG/100 ML PIGGYBACK 400 MG IV (12:14)
--- NOTE | 2024-01-23 12:41 | PC.NURSE ---
tele pack returned to floor monitor @ 12:35.
--- NOTE | 2024-01-23 13:09 | P.PNCC_ITS ---
Subjective Subjective Date of Service: 01/23/24 Interval History: 83-year-old lady with underlying dementia, recent admission for left distal femur fracture status post retrograde nail on 01/08/2024 with a bili postprocedure receiving 2 units before discharge, readmitted on 01/16/2024 with acute blood loss anemia, now status post left profundus femoris stenting on 01/21/2024 and hematoma evacuation on 01/23/2024, being monitored in the intensive care unit. Critical Care Time (minutes): 0 Physical Exam 2 Vital Signs: Vital Signs: Last Vital Signs Temp 99.1 F 01/23/24 10:52 Pulse 79 01/23/24 13:00 Resp 15 01/23/24 13:00 BP 129/50 L 01/23/24 13:00 Pulse Ox 95 01/23/24 13:00 O2 Del Method Nasal Cannula 01/23/24 13:00 O2 Flow Rate 1 01/23/24 13:00 BMI result Body Mass Index 39.1 Const: General: no acute distress, alert, awake and confusion O rientation/consciousness: confusion Eyes: Sclerae: sclerae normal EOM: EOMs intact bilaterally Neck: Neck: Yes no lymphadenopathy, Yes trachea midline and Yes supple Resp: Effort & Inspection: normal respiratory effort and no respiratory distress Auscultation: clear to auscultation bilaterally Cardio: Rate: regular rate Rhythm: regular rhythm Heart sounds: no gallops, no murmurs and no rubs GI: Palpation (GI): Soft to palpation and Other GI palpation findings present ( Nontender) Auscultation: normal bowel sounds Neuro: General: confusion Extrem: Other: Lifelong in knee immobilizer with thigh fasciotomy incisions with saturated surgical dressing General: Yes no pedal edema, No clubbing and No cyanosis Objective Data Labs 01/23/24 05:55 01/22/24 07:03 Labs: Laboratory Results - last 24 hr 01/22/24 01/22/24 01/23/24 08:40 18:38 05:55 WBC 8.2 6.7 RBC 2.75 L D 2.64 L Hgb 8.2 L D 8.1 L Hct 25.5 L D 24.5 L MCV 92.7 D 92.8 MCH 29.8 30.7 MCHC 32.2 33.1 RDW 17.2 H 17.7 H Plt Count 150 L 187 MPV 12.1 11.3 Absolute Nucleated RBC 0.060 H 0.070 H Nucleated RBC % (auto) 0.7 H 1.1 H Blood Type A Positive Antibody Screen NEGATIVE Crossmatch See Detail Microbiology Microbiology Results: Microbiology 01/16/24 13:27 Blood - Venous Blood Culture - Final No growth after 5 days. 01/16/24 13:09 Blood - Venous Blood Culture - Final No growth after 5 days. Progress Note: A&P Assessment and plan (1) Hematoma of left lower extremity: Status: Acute (2) ABLA (acute blood loss anemia): Status: Acute (3) Afib: Status: Acute (4) Dementia: Status: Acute Plan Assessment: 83-year-old lady readmitted with acute blood loss anemia after recent orthopedic procedure secondary to left profunda femoris hematoma, now status post profunda femoris stenting and hematoma evacuation Plan: Neuro: No acute issues. Underlying dementia. Cardiac: No acute issues. Underlying AFib Pulmonary: No acute issues. Renal: No acute issues. Endo: No acute issues. GI: No acute issues. ID: No acute issues Heme/Onc: Acute blood loss anemia secondary to profunda femoris hematoma, now status post stenting and hematoma evacuation. Vascular surgery service care appreciated. Continue to monitor hemoglobin level. Psych: No acute issues. Miscellaneous: No acute issues. Prophylaxis: Pneumatic compression Diet: NPO Quality Stroke Does the patient have a stroke diagnosis?: No VTE Prior VTE?: No VTE Risk Level:: Medical - moderate - high VTE Device Contraindication: N/A - Device Ordered VTE Drug Contraindication: Treatment Not Indicated
[2024-01-23 13:57] LABS: Hematocrit 31.1 % (37.0-47.0); Hemoglobin 10.1 g/dl (12.0-16.0); Mean Corpuscular HGB Conc 32.5 g/dl (31.0-35.0); Mean Corpuscular Hemoglobin 29.9 pg (27.0-33.0); Mean Platelet Volume 11.1 fL (9.4-12.3); NRBC Pct Auto 0.5 /100WBC (0.0-0.2); Platelet Count 191 X10*3/uL (160-400); Red Blood Count 3.38 X10*6/uL (4.20-5.50); Red Cell Distribution Width 17.7 % (11.0-16.0); White Blood Count 10.8 X10*3/uL (4.8-10.8)
[2024-01-23 14:22] LABS: Anion Gap 8 (12-20); Blood Urea Nitrogen 11 mg/dL (9-16); Carbon Dioxide 25 mmol/L (22-29); Chloride 111 mmol/L (96-108); Creatinine Clr Calc Pharmacy 92.3; Estimated Glomerular Filt Rate > 60; Glucose Random 116 mg/dL (60-115); Magnesium 2.1 mg/dL (1.6-2.6); Phosphorus 3.3 mg/dL (2.7-4.5); Potassium 4.1 mmol/L (3.3-5.1); Sodium 140 mmol/L (135-145)
[2024-01-23 14:29] LABS: Band Neutrophils Percent 2 % (3-5); Hypochromasia 1+ (5-14) /OIF; Lymphocytes Absolute Manual 0.3 X10*3/uL (1.2-4.9); Lymphocytes Percent Manual 3 % (20-40); Metamyelocytes Absolute 0.3 X10*3/uL; Metamyelocytes Percent 3 %; Monocytes Absolute Manual 0.2 X10*3/uL (0.1-1.2); Monocytes Percent Manual 2 % (2-11); Myelocytes Absolute 0.1 X10*/uL; Myelocytes Percent 1 %; Neutrophils Absolute Manual 9.8 X10*3/uL (2.0-8.3); Neutrophils Percent Manual 89 % (45-73); Nucleated Red Blood Cells 1 /100WBC (0-0); Platelet Estimate NORMAL (NORMAL); Platelet Morphology Comment NORMAL; Polychromasia 1+ (0-2) /OIF; RBC Morphology NOTED
--- NOTE | 2024-01-23 17:55 | MHC.SLORD ---
Speech Language Pathology Order Status: Patient NPO this morning for surgery then transferred to ICU for recovery. CHECKER DUMP GROUNDS will continue to follow.
[2024-01-23] MEDS: Albumin Human 25 % 100 ML IV (19:40)
[2024-01-23 19:43] LABS: MANUAL DIFF FLAG NO
[2024-01-23 19:50] LABS: Basophils Percent Auto 0.1 % (0-2); Hematocrit 31.8 % (37.0-47.0); Hemoglobin 10.3 g/dl (12.0-16.0); Imm Gran Abs Auto 0.42 X10*3/uL (0.00-0.03); Imm Gran Pct Auto 4.2 % (0.0-0.4); Lymphocytes Absolute Auto 0.6 X10*3/uL (1.2-4.9); Lymphocytes Percent Auto 5.6 % (20-40); Mean Corpuscular HGB Conc 32.4 g/dl (31.0-35.0); Mean Corpuscular Hemoglobin 29.5 pg (27.0-33.0); Mean Corpuscular Volume 91.1 fL (80.0-98.0); Mean Platelet Volume 11.3 fL (9.4-12.3); Monocytes Absolute Auto 0.2 X10*3/uL (0.1-1.2); Monocytes Percent Auto 1.8 % (2-11); NRBC Pct Auto 0.4 /100WBC (0.0-0.2); Neutrophils Absolute Auto 8.9 x10*3/uL (2.0-8.3); Neutrophils Percent Auto 88.3 % (45-73); Platelet Count 214 X10*3/uL (160-400); Red Blood Count 3.49 X10*6/uL (4.20-5.50); Red Cell Distribution Width 17.7 % (11.0-16.0); White Blood Count 10.1 X10*3/uL (4.8-10.8)
[2024-01-23] MEDS: Gabapentin 100 MG CAPSULE PO (19:59)
[2024-01-23] MEDS: Sennosides 8.6 MG TABLET 17.2 MG PO (19:59)
[2024-01-23] MEDS: cefoTEtan disodium 2 GM in 0.9 % Sodium Chloride 50 ML IV (21:44)
[2024-01-24] VITALS (24 sets, daily range): BP systolic 90–196; BP diastolic 38–88; PULSE 74–96; RESP 12–22; TEMP 36.5–37.6; O2SAT 93–98
[2024-01-24] MEDS: Albumin Human 25 % 100 ML IV ×3 (01:01→15:39)
[2024-01-24] MEDS: 0.9 % Sodium Chloride Flush 3 ML SYRINGE IVFLUSH ×3 (01:04→15:54)
[2024-01-24] MEDS: Morphine Sulfate 2 MG/ML CARTRIDGE IVPUSH ×3 (01:43→12:08)
[2024-01-24] MEDS: Acetaminophen 325 MG TABLET 650 MG PO (01:52)
[2024-01-24 04:51] LABS: MANUAL DIFF FLAG NO
[2024-01-24 04:52] LABS: Basophils Percent Auto 0.1 % (0-2); Eosinophils Percent Auto 0.1 % (0-4); Hematocrit 24.3 % (37.0-47.0); Hemoglobin 7.9 g/dl (12.0-16.0); Imm Gran Abs Auto 0.15 X10*3/uL (0.00-0.03); Imm Gran Pct Auto 2.2 % (0.0-0.4); Lymphocytes Absolute Auto 0.7 X10*3/uL (1.2-4.9); Lymphocytes Percent Auto 10.4 % (20-40); Mean Corpuscular HGB Conc 32.5 g/dl (31.0-35.0); Mean Corpuscular Hemoglobin 29.9 pg (27.0-33.0); Mean Platelet Volume 11.5 fL (9.4-12.3); Monocytes Absolute Auto 0.5 X10*3/uL (0.1-1.2); Monocytes Percent Auto 7.5 % (2-11); NRBC Pct Auto 0.3 /100WBC (0.0-0.2); Neutrophils Absolute Auto 5.5 x10*3/uL (2.0-8.3); Neutrophils Percent Auto 79.7 % (45-73); Platelet Count 158 X10*3/uL (160-400); Red Blood Count 2.64 X10*6/uL (4.20-5.50); Red Cell Distribution Width 17.6 % (11.0-16.0); White Blood Count 6.9 X10*3/uL (4.8-10.8)
[2024-01-24 05:00] LABS: Prothrombin Time 12.7 SEC (11.1-13.3)
[2024-01-24 05:06] LABS: Anion Gap 12 (12-20); Blood Urea Nitrogen 13 mg/dL (9-16); Calcium 8.2 mg/dL (8.4-10.2); Carbon Dioxide 22 mmol/L (22-29); Chloride 110 mmol/L (96-108); Creatinine Clr Calc Pharmacy 92.3; Estimated Glomerular Filt Rate > 60; Glucose Random 107 mg/dL (60-115); Magnesium 2.2 mg/dL (1.6-2.6); Phosphorus 2.8 mg/dL (2.7-4.5); Potassium 3.9 mmol/L (3.3-5.1); Sodium 140 mmol/L (135-145)
[2024-01-24] MEDS: oxyCODONE HCl Immed Release 5 MG TABLET PO ×4 (05:10→20:08)
[2024-01-24 05:36] LABS: Albumin Level 2.9 g/dL (3.5-5.0)
[2024-01-24] MEDS: Docusate Sodium 100 MG CAPSULE PO ×2 (08:10→20:09)
[2024-01-24] MEDS: Memantine HCl 5 MG TABLET PO ×2 (08:10→20:09)
[2024-01-24] MEDS: Ferrous Sulfate 324 MG TABLET.DR PO (08:10)
[2024-01-24] MEDS: Magnesium Oxide 400 MG TABLET PO (08:10)
[2024-01-24] MEDS: Mirabegron 50 MG TAB.ER.24H PO (08:10)
[2024-01-24] MEDS: Metoprolol Succinate ER 25 MG TAB.ER.24H PO (08:10)
[2024-01-24] MEDS: polyethylene glycoL 3350 17 GM POWD.PACK PO (08:11)
--- NOTE | 2024-01-24 08:59 | P.PNVS_ITS ---
Subjective Subjective Date of Service: 01/24/24 Patient reports: no new complaints Interval history: Patient seen and examined. No significant events overnight. Reports that the pain and discomfort on the left lower extremity is decreased. She is now for postprocedure follow-up. She does have drainage in saturation on ABD pads. Physical Exam Vital Signs: Vital Signs: Last Vital Signs Temp 97.7 F 01/24/24 08:00 Pulse 92 01/24/24 08:35 Resp 20 01/24/24 08:00 BP 131/55 L 01/24/24 08:10 Pulse Ox 96 01/24/24 08:00 O2 Del Method Room Air 01/24/24 08:00 O2 Flow Rate 1 01/23/24 17:00 BMI result Body Mass Index 39.1 Const: General: cooperative, healthy appearing and comfortable Orientation/consciousness: oriented to person, oriented to place and oriented to time HEENT: Head: Yes normal to inspection Neck: Neck: Yes normal visual inspection Carotids: no bruits Chest: Chest palpation & inspection: normal inspection of the chest Resp: Effort & Inspection: normal respiratory effort and able to speak in complete sentences Auscultation: clear to auscultation bilaterally, no crackles, no rales, no rhonchi and no wheezes Cardio: Rate: regular rate Rhythm: regular rhythm Heart sounds: S1 normal heart sound present and S2 normal heart sound present Bruits: no carotid bruits Peripheral pulses: Peripheral pulses 2+ throughout GI: Inspection: Yes normal to inspection Skin: Other: Left thigh dressing saturated in changed. Wounds: no wounds Hair: normal Neuro: General: oriented to person, oriented to place and oriented to time Cranial nerves: Yes CN's II-XII intact bilaterally and Yes Normal hearing present Cognition (Neuro): normal cognition Motor exam (neuro): 5/5 motor strength present throughout Extrem: Other: Lower extremity thigh and calf compartments relatively soft. General: No clubbing, No cyanosis and Yes edema Psych: Appearance: grossly normal Mental Status: mental status grossly normal Speech and movement: Normal speech and movement present Progress Note: A&P Assessment and plan (1) Hematoma of left lower extremity: Status: Acute Assessment and Plan: In short on Saturday patient underwent stenting from left profunda femoris artery. She did have significant pressure on the left thigh. We did an exploration of that left leg along with hematoma evacuation and fasciotomies yesterday. Appears to be doing relatively well from all this. Concern is overall orthopedic status and the knee. In addition hemoglobin dropped from 10- 7.9 which is also concerning. Some of this may be equilibration but significant drop since yesterday. Will need continuous medical management and monitoring of H&H. Thank you for allowing us to assist in her care. If there are any questions or concerns please do not hesitate to contact us Time Spent With Patient Time: Total time managing care of this patient today ____ minutes. Procedures Date of Service Date of Service: 01/24/24 Quality Stroke Does the patient have a stroke diagnosis?: No VTE Prior VTE?: No VTE Risk Level:: Medical - moderate - high VTE Device Contraindication: N/A - Device Ordered VTE Drug Contraindication: Treatment Not Indicated
--- NOTE | 2024-01-24 09:59 | PC.NURSE ---
Patient now med-tele transfer. Do not remove patel at this time VO Dr Gunter. Awaiting for bed assignment.
--- NOTE | 2024-01-24 10:03 | MHC.CLN ---
F/U PT WITH INCREASED NUTRITION RISK R/T PRESSURE INJURIES DTI TO LEFT HEEL AND DTI TO LEFT SACRUM PO INTAKE VARIABLE DIET=REGULAR ADDING ENSURE MAX BID TO PROMOTE WOUND HEALING SUPP TO PROVIDE 300KCALS, 60G PROTEIN MONITOR PO INTAKE AND ENCOURAGE SUPPLEMENTS
--- NOTE | 2024-01-24 10:20 | MHC.SL.SWA ---
Speech Pathologist Impression: Risk of aspiration Risk of Aspiration Due to: Lethargy History of Pneumonia Reduced Cognition Dysphasia Diet Status: Patient is tolerating regular textures. She is able to feed herself, but will require direct supervision during PO intake d/t confusion. Further ST intervention no longer warranted. Please re-refer with any concerns. Liquid Consistency and Strategies for Safe Swallow: Liquid Intake Recommendation: Thin Liquid Intake Strategies: Small Sips Solid Food Consistency: Dietary Recommendations: Regular Oral Medication Intake: Whole with Liquid Please contact the pharmacy regarding appropriate crushable or liquid drug formulations that are available whenever modified delivery is recommended. Compensatory Strategies and Precautions to be Taken for Safe Swallow: Sitting Upright (90 deg) Liquids from Cup Liquids from Straw Small Bites and Sips Alternate Liquids/Solids Rate of Ingestion Change Oral Check Supervision While Eating and Drinking for Safe Swallow: Total Supervision (1:1) Swallowing Recommended Treatments: Compens. Strategy Educat. Recommendation for Speech: D/C Chief Crew Scheduler Clinican/Clinical Fellow: No Supervisory Statement: I have reviewed and agree with the student/clinical fellow's documentation: N/A Speech Language Pathologist: Fabby Vera M.A., CCC-BUSINESS DEVELOPMENT ENGINEER
--- NOTE | 2024-01-24 10:24 | P.PNCC_ITS ---
Subjective Subjective Date of Service: 01/24/24 Interval History: 83-year-old lady with underlying dementia, recent admission for left distal femur fracture status post retrograde nail on 01/08/2024 with a bili postprocedure receiving 2 units before discharge, readmitted on 01/16/2024 with acute blood loss anemia, now status post left profundus femoris stenting on 01/21/2024 and hematoma evacuation on 01/23/2024, being monitored in the intensive care unit. No events overnight. Hemoglobin is down trending. No overt bleeding noted. Critical Care Time (minutes): 0 Physical Exam 2 Vital Signs: Vital Signs: Last Vital Signs Temp 97.7 F 01/24/24 08:00 Pulse 88 01/24/24 09:00 Resp 20 01/24/24 09:00 BP 123/45 L 01/24/24 09:00 Pulse Ox 93 01/24/24 09:00 O2 Del Method Room Air 01/24/24 09:00 O2 Flow Rate 1 01/23/24 17:00 BMI result Body Mass Index 39.1 Const: General: no acute distress, alert and awake Eyes: Sclerae: sclerae normal EOM: EOMs intact bilaterally Neck: Neck: Yes no lymphadenopathy, Yes trachea midline and Yes supple Resp: Effort & Inspection: normal respiratory effort and no respiratory distress Auscultation: clear to auscultation bilaterally Cardio: Rate: regular rate Rhythm: regular rhythm Heart sounds: no gallops, no murmurs and no rubs GI: Palpation (GI): Soft to palpation and Other GI palpation findings present ( Nontender) Auscultation: normal bowel sounds Extrem: Other: Left extremity in knee immobilizer, thigh fasciotomy with saturated dressing General: Yes no pedal edema, No clubbing and No cyanosis Objective Data Labs 01/24/24 04:44 01/24/24 04:44 Labs: Laboratory Results - last 24 hr 01/22/24 01/23/24 01/23/24 08:40 13:46 19:14 WBC 10.8 10.1 RBC 3.38 L D 3.49 L Hgb 10.1 L D 10.3 L Hct 31.1 L D 31.8 L MCV 92.0 91.1 MCH 29.9 29.5 MCHC 32.5 32.4 RDW 17.7 H 17.7 H Plt Count 191 214 MPV 11.1 11.3 Immature Gran % (Auto) Cancelled 4.2 H Neut % (Auto) Cancelled 88.3 H Lymph % (Auto) Cancelled 5.6 L [place] % (Auto) Cancelled 1.8 L Eos % (Auto) Cancelled 0.0 Baso % (Auto) Cancelled 0.1 Lymph # (Auto) Cancelled 0.6 L [place] # (Auto) Cancelled 0.2 Eos # (Auto) Cancelled 0.0 Baso # (Auto) Cancelled 0.0 Abs Immat Gran (auto) Cancelled 0.42 H Absolute Neuts (auto) Cancelled 8.9 H Absolute Nucleated RBC 0.050 H 0.040 H Nucleated RBC % (auto) 0.5 H 0.4 H Neutrophils % (Manual) 89 H Band Neutrophils % 2 L Lymphocytes % (Manual) 3 L Monocytes % (Manual) 2 Metamyelocytes % 3 Myelocytes % 1 Abs Neuts (Manual) 9.8 H Lymphocytes # (Manual) 0.3 L Monocytes # (Manual) 0.2 Metamyelocytes # 0.3 Myelocytes # 0.1 Nucleated RBCs 1 H Platelet Estimate NORMAL Plt Morphology Comment NORMAL RBC Morphology NOTED Polychromasia 1+ (0-2) Hypochromasia 1+ (5-14) PT INR Sodium 140 Potassium 4.1 Chloride 111 H Carbon Dioxide 25 Anion Gap 8 L BUN 11 Creatinine 0.54 Estim Creat Clear Calc 92.3 Estimated GFR > 60 Random Glucose 116 H Calcium 8.0 L Phosphorus 3.3 Magnesium 2.1 Albumin Blood Type A Positive Antibody Screen NEGATIVE Crossmatch See Detail 01/24/24 04:44 WBC 6.9 RBC 2.64 L D Hgb 7.9 L D Hct 24.3 L D MCV 92.0 MCH 29.9 MCHC 32.5 RDW 17.6 H Plt Count 158 L D MPV 11.5 Immature Gran % (Auto) 2.2 H Neut % (Auto) 79.7 H Lymph % (Auto) 10.4 L [place] % (Auto) 7.5 Eos % (Auto) 0.1 Baso % (Auto) 0.1 Lymph # (Auto) 0.7 L [place] # (Auto) 0.5 Eos # (Auto) 0.0 Baso # (Auto) 0.0 Abs Immat Gran (auto) 0.15 H Absolute Neuts (auto) 5.5 Absolute Nucleated RBC 0.020 H Nucleated RBC % (auto) 0.3 H Neutrophils % (Manual) Band Neutrophils % Lymphocytes % (Manual) Monocytes % (Manual) Metamyelocytes % Myelocytes % Abs Neuts (Manual) Lymphocytes # (Manual) Monocytes # (Manual) Metamyelocytes # Myelocytes # Nucleated RBCs Platelet Estimate Plt Morphology Comment RBC Morphology Polychromasia Hypochromasia PT 12.7 INR 1.0 Sodium 140 Potassium 3.9 Chloride 110 H Carbon Dioxide 22 Anion Gap 12 BUN 13 Creatinine 0.54 Estim Creat Clear Calc 92.3 Estimated GFR > 60 Random Glucose 107 Calcium 8.2 L Phosphorus 2.8 Magnesium 2.2 Albumin 2.9 L Blood Type Antibody Screen Crossmatch Microbiology Microbiology Results: Microbiology 01/16/24 13:27 Blood - Venous Blood Culture - Final No growth after 5 days. 01/16/24 13:09 Blood - Venous Blood Culture - Final No growth after 5 days. Progress Note: A&P Assessment and plan (1) Dementia: Status: Acute (2) Afib: Status: Acute (3) Hematoma of left lower extremity: Status: Acute Plan Assessment: 83-year-old lady readmitted with acute blood loss anemia after recent orthopedic procedure secondary to left profunda femoris hematoma, now status post profunda femoris stenting and hematoma evacuation Plan: Neuro: No acute issues. Underlying dementia. Cardiac: No acute issues. Underlying AFib Pulmonary: No acute issues. Renal: No acute issues. Endo: No acute issues. GI: No acute issues. ID: No acute issues Heme/Onc: Acute blood loss anemia secondary to profunda femoris hematoma, now status post stenting and hematoma evacuation. Vascular surgery service care appreciated. Continue to monitor hemoglobin level. Psych: No acute issues. Miscellaneous: No acute issues. Prophylaxis: Pneumatic compression Diet: Regular Quality Stroke Does the patient have a stroke diagnosis?: No VTE Prior VTE?: No VTE Risk Level:: Medical - moderate - high VTE Device Contraindication: N/A - Device Ordered VTE Drug Contraindication: Treatment Not Indicated
--- NOTE | 2024-01-24 12:15 | HO.POSTANES ---
Post Anesthesia Evaluation Post Anesthesia Evaluation Date of Service: 01/24/24 Vital Signs: Vital Signs Temp Pulse Pulse Resp BP Pulse Ox O2 Del Method 01/24/24 11:43 88 01/24/24 11:43 Room Air 01/24/24 09:00 88 20 123/45 L 93 Room Air 01/24/24 09:00 88 15 123/45 L 95 Room Air 01/24/24 08:35 92 01/24/24 08:10 85 131/55 L 01/24/24 08:00 97.7 F 84 20 131/55 L 96 Room Air 01/24/24 07:53 88 01/24/24 07:11 22 H 01/24/24 07:00 87 15 131/55 L 97 Room Air 01/24/24 06:00 83 14 135/57 L 98 Room Air 01/24/24 05:00 80 16 126/44 L 96 Room Air 01/24/24 04:34 80 16 125/55 L 97 Room Air 01/24/24 04:00 77 12 90/42 L 97 Room Air 01/24/24 03:14 74 01/24/24 03:00 74 16 96/39 L 95 Room Air 01/24/24 02:00 76 01/24/24 02:00 77 12 120/49 L 96 Room Air 01/24/24 01:00 78 14 118/47 L 95 Room Air Anesthesia: General Endotracheal-GETA Mental Status: Awake Pain Control: Satisfactory Nausea/Vomiting: None Hydration: Adequate Anesthesia-Related Issues: No Anes. Related Issues
[2024-01-24 12:39] LABS: Hematocrit 26.4 % (37.0-47.0); Hemoglobin 8.6 g/dl (12.0-16.0)
[2024-01-24] MEDS: Sennosides 8.6 MG TABLET 17.2 MG PO (20:09)
[2024-01-24] MEDS: Gabapentin 100 MG CAPSULE PO (20:09)
[2024-01-25] VITALS (10 sets, daily range): BP systolic 150–190; BP diastolic 54–87; PULSE 78–87; RESP 18–20; TEMP 36.7–37.5; O2SAT 93–96
[2024-01-25] MEDS: 0.9 % Sodium Chloride Flush 3 ML SYRINGE IVFLUSH ×4 (01:37→21:09)
[2024-01-25 06:48] LABS: MANUAL DIFF FLAG NO
[2024-01-25 07:15] LABS: Basophils Percent Auto 0.4 % (0-2); Eosinophils Absolute Auto 0.2 X10*3/uL (0.0-0.4); Hematocrit 25.6 % (37.0-47.0); Hemoglobin 8.3 g/dl (12.0-16.0); Imm Gran Abs Auto 0.12 X10*3/uL (0.00-0.03); Imm Gran Pct Auto 1.6 % (0.0-0.4); Lymphocytes Percent Auto 13.4 % (20-40); Mean Corpuscular HGB Conc 32.4 g/dl (31.0-35.0); Mean Corpuscular Hemoglobin 30.3 pg (27.0-33.0); Mean Corpuscular Volume 93.4 fL (80.0-98.0); Mean Platelet Volume 11.5 fL (9.4-12.3); Monocytes Absolute Auto 0.6 X10*3/uL (0.1-1.2); Monocytes Percent Auto 8.6 % (2-11); NRBC Pct Auto 0.4 /100WBC (0.0-0.2); Neutrophils Absolute Auto 5.4 x10*3/uL (2.0-8.3); Platelet Count 189 X10*3/uL (160-400); Red Blood Count 2.74 X10*6/uL (4.20-5.50); Red Cell Distribution Width 17.4 % (11.0-16.0); White Blood Count 7.3 X10*3/uL (4.8-10.8)
[2024-01-25 07:17] LABS: Albumin Level 3.2 g/dL (3.5-5.0); Anion Gap 10 (12-20); Blood Urea Nitrogen 11 mg/dL (9-16); Calcium 8.4 mg/dL (8.4-10.2); Carbon Dioxide 24 mmol/L (22-29); Chloride 109 mmol/L (96-108); Creatinine Clr Calc Pharmacy 110.8; Estimated Glomerular Filt Rate > 60; Glucose Random 90 mg/dL (60-115); Magnesium 2.2 mg/dL (1.6-2.6); Potassium 3.3 mmol/L (3.3-5.1); Sodium 140 mmol/L (135-145)
[2024-01-25] MEDS: Morphine Sulfate 2 MG/ML CARTRIDGE IVPUSH (08:03)
[2024-01-25] MEDS: Metoprolol Succinate ER 25 MG TAB.ER.24H PO (08:10)
[2024-01-25] MEDS: Docusate Sodium 100 MG CAPSULE PO ×2 (08:10→21:10)
[2024-01-25] MEDS: Magnesium Oxide 400 MG TABLET PO (08:10)
[2024-01-25] MEDS: Ferrous Sulfate 324 MG TABLET.DR PO (08:10)
[2024-01-25] MEDS: oxyCODONE HCl Immed Release 5 MG TABLET PO ×2 (09:17→21:12)
[2024-01-25] MEDS: Mirabegron 50 MG TAB.ER.24H PO (09:17)
[2024-01-25] MEDS: Memantine HCl 5 MG TABLET PO ×2 (09:18→21:09)
[2024-01-25] MEDS: polyethylene glycoL 3350 17 GM POWD.PACK PO (09:23)
--- NOTE | 2024-01-25 13:21 | P.PNIM_ITS ---
Subjective Subjective Date of Service: 01/25/24 Interval History: Seen and evaluated this morning confused and worried about pain under fair control no reported overnight events Review of Systems Review of Systems: Yes all other systems are reviewed and are negative Physical Exam 2 Vital Signs: Vital Signs: Last Vital Signs Temp 98.2 F 01/25/24 11:45 Pulse 80 01/25/24 11:45 Resp 18 01/25/24 11:45 BP 150/70 H 01/25/24 11:45 Pulse Ox 93 01/25/24 11:45 O2 Del Method Room Air 01/25/24 11:45 O2 Flow Rate 1 01/23/24 17:00 BMI result Body Mass Index 39.1 Const: Other: Constitutional : Awake, interactive, not in distress Neck : Normal inspection, Supple Cardiovascular : irregular irregular, no JVP, trace lower extremity edema Respiratory : good bilateral air entry, no crackles, wheezes or rhonchi Gastrointestinal: soft, lax, Normal bowel sounds, Non tender Skin : Warm, Dry Extremities: LLE in cast with no significant tenderness, swelling or bleeding Neurological : Alert & oriented to self and place, No focal deficit Objective Data Active Medications Acetaminophen (Acetaminophen 325 Mg Tablet) 650 mg PO Q6H PRN PRN Reason: Pain, Mild (Pain Scale 1-3) Last Admin: 01/24/24 01:52 Dose: 650 mg Documented By: WANDA Docusate Sodium (Docusate Sodium 100 Mg Capsule) 100 mg PO BID [facility] Last Admin: 01/25/24 08:10 Dose: 100 mg Documented By: BJ Ferrous Sulfate (Ferrous Sulfate 324 Mg Tablet.) 324 mg PO DAILY [facility] Last Admin: 01/25/24 08:10 Dose: 324 mg Documented By: BJ Gabapentin (Gabapentin 100 Mg Capsule) 100 mg PO BEDTIME [facility] Last Admin: 01/24/24 20:09 Dose: 100 mg Documented By: NAUMHO Magnesium Oxide (Magnesium Oxide 400 Mg Tablet) 400 mg PO DAILY [facility] Last Admin: 01/25/24 08:10 Dose: 400 mg Documented By: BJ Memantine (Memantine Hcl 5 Mg Tablet) 5 mg PO BID [facility] Last Admin: 01/25/24 09:18 Dose: 5 mg Documented By: BJ Metoprolol Succinate (Metoprolol Succinate Er 25 Mg Tab.Er.24h) 25 mg PO DAILY [facility]; Protocol Last Admin: 01/25/24 08:10 Dose: 25 mg Documented By: BJ Mirabegron (Mirabegron 50 Mg Tab.Er.24h) 50 mg PO DAILY [facility] Last Admin: 01/25/24 09:17 Dose: 50 mg Documented By: BJ Ondansetron HCl (Ondansetron Hcl 4 Mg/2 Ml Vial) 4 mg IVPUSH Q8H PRN PRN Reason: Nausea and Vomiting Last Admin: 01/16/24 21:30 Dose: 4 mg Documented By: FRANCK Oxycodone HCl (Oxycodone Hcl Immed Release 5 Mg Tablet) 5 mg PO TID [facility] Last Admin: 01/25/24 09:17 Dose: 5 mg Documented By: BJ Oxycodone HCl (Oxycodone Hcl Immed Release 5 Mg Tablet) 5 mg PO Q6H PRN PRN Reason: Pain, Severe (Pain Scale 7-10) Last Admin: 01/24/24 05:10 Dose: 5 mg Documented By: WANDA Polyethylene Glycol (Polyethylene Glycol 3350 17 Gm Powd.Pack) 17 gm PO DAILY [facility] Last Admin: 01/25/24 09:23 Dose: 17 gm Documented By: BJ Senna (Sennosides 8.6 Mg Tablet) 17.2 mg PO BEDTIME [facility] Last Admin: 01/24/24 20:09 Dose: 17.2 mg Documented By: LOUIS Sodium Chloride (0.9 % Sodium Chloride Flush 3 Ml Syringe) 3 ml IVFLUSH QSHIFT [facility] Last Admin: 01/25/24 08:04 Dose: 3 ml Documented By: BJ Labs 01/25/24 06:09 01/25/24 06:09 Labs: Laboratory Results - last 24 hr 01/25/24 06:09 MCV 93.4 MCH 30.3 MCHC 32.4 RDW 17.4 H Plt Count 189 MPV 11.5 Immature Gran % (Auto) 1.6 H Neut % (Auto) 73.0 Lymph % (Auto) 13.4 L [place] % (Auto) 8.6 Eos % (Auto) 3.0 Baso % (Auto) 0.4 Lymph # (Auto) 1.0 L [place] # (Auto) 0.6 Eos # (Auto) 0.2 Baso # (Auto) 0.0 Abs Immat Gran (auto) 0.12 H Absolute Neuts (auto) 5.4 Absolute Nucleated RBC 0.030 H Nucleated RBC % (auto) 0.4 H Anion Gap 10 L Estim Creat Clear Calc 110.8 Estimated GFR > 60 Random Glucose 90 Calcium 8.4 Phosphorus 2.0 L Magnesium 2.2 Albumin 3.2 L Assessment and Plan (1) Hematoma of left lower extremity: Status: Acute (2) Multifocal pneumonia: Status: Acute (3) Acute blood loss anemia: Status: Acute Plan 83-year-old lady with underlying dementia, recent admission for left distal femur fracture status post retrograde nail on 01/08/2024 with a bili postprocedure receiving 2 units before discharge, readmitted on 01/16/2024 with acute blood loss anemia, now status post left profundus femoris stenting on 01/21/2024 and hematoma evacuation on 01/23/2024, monitored in the intensive care unit. transferred to medical floor as she stabilized. acute on chronic anemia due to blood loss from hematoma due to recent surgery and AC with Eliquis CT left leg with subq contusion/hematoma in the anterior subcutaneous soft tissues and anterior muscle compartment of the left thigh Eliquis was discontinued on admission, 2U blood given on 01/15 with appropriate rise, hematocrit dropped again on 01/16, received 1 additional unit. 01/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 Large hematoma in the anterior compartment muscles of the thigh increased in size from 01/16/2024. Patient underwent aortogram with left lower extremity runoff and left profundus femoris artery Stenting by Dr. Ford 01/20 hematocrit on 01/21 dropped and received 2 units of packed RBC due to worsening left thigh swelling patient was taken to OR for hematoma evacuation by vascular surgery. monitored in ICU breifly afterward To Start PT Follow CBC and clinical course closely. Multifocal pneumonia with possible sepsis DC IV Unasyn finishing 7 day course of treatment seen by speech, diet upgraded to NDD3, with thin liqs; 1:1 feeds aspiration precautions blood cultures negative times 48 hours Paroxysmal atrial fibrillation continue po metoprolol Eliquis on hold , will resume after discussing with vascular surgery once hematocrit stabilizes toxic metabolic encephalopathy on a background of multifactorial cognitive impairment. likely due to acute illness, acute anemia, recent surgery, rehab stay and recent hospitalization seen by psych last hospitalization, does NOT have capacity to make medical decisions - HCP is daughter Yenni invoked continue namenda and gabapentin elevated LFTS LFTs trending down will resume statins upon discharge left femur fracture s/p IMN 4/ continue analgesics continue bowel regimen ,seen by ortho no further intervention planned HTN continue metoprolol 25 mg daily Morbid obesity bmi 39.1, recommend low-calorie diet weight loss code status- full code DVT prophylaxis- SCPs requires ongoing inpatient stay due hematoma evacuation and anemia monitoring for rebleeding pending clinical improvement and safe discharge plan Quality Stroke Does the patient have a stroke diagnosis?: No VTE Prior VTE?: No VTE Risk Level:: Medical - moderate - high VTE Device Contraindication: N/A - Device Ordered VTE Drug Contraindication: Treatment Not Indicated
[2024-01-25] MEDS: Gabapentin 100 MG CAPSULE PO (21:09)
[2024-01-25] MEDS: Sennosides 8.6 MG TABLET 17.2 MG PO (21:09)
[2024-01-25] MEDS: Potassium Chloride Packet 20 MEQ PACKET 40 MEQ PO (21:12)
[2024-01-26] VITALS (10 sets, daily range): BP systolic 146–188; BP diastolic 64–89; PULSE 79–83; RESP 20–22; TEMP 36.2–37.2; O2SAT 93–96
[2024-01-26] MEDS: Acetaminophen 325 MG TABLET 650 MG PO ×2 (05:41→14:05)
[2024-01-26 07:16] LABS: Hematocrit 26.5 % (37.0-47.0); Hemoglobin 8.5 g/dl (12.0-16.0); Mean Corpuscular HGB Conc 32.1 g/dl (31.0-35.0); Mean Corpuscular Hemoglobin 29.9 pg (27.0-33.0); Mean Corpuscular Volume 93.3 fL (80.0-98.0); Mean Platelet Volume 11.5 fL (9.4-12.3); NRBC Pct Auto 0.3 /100WBC (0.0-0.2); Platelet Count 192 X10*3/uL (160-400); Red Blood Count 2.84 X10*6/uL (4.20-5.50); Red Cell Distribution Width 17.2 % (11.0-16.0); White Blood Count 6.3 X10*3/uL (4.8-10.8)
[2024-01-26 07:51] LABS: Anion Gap 9 (12-20); Blood Urea Nitrogen 11 mg/dL (9-16); Calcium 8.3 mg/dL (8.4-10.2); Carbon Dioxide 24 mmol/L (22-29); Chloride 109 mmol/L (96-108); Creatinine Clr Calc Pharmacy 121.6; Estimated Glomerular Filt Rate > 60; Glucose Random 105 mg/dL (60-115); Potassium 3.9 mmol/L (3.3-5.1); Sodium 138 mmol/L (135-145)
[2024-01-26] MEDS: 0.9 % Sodium Chloride Flush 3 ML SYRINGE IVFLUSH ×3 (09:09→20:49)
[2024-01-26] MEDS: polyethylene glycoL 3350 17 GM POWD.PACK PO (09:10)
[2024-01-26] MEDS: Magnesium Oxide 400 MG TABLET PO (09:11)
[2024-01-26] MEDS: Ferrous Sulfate 324 MG TABLET.DR PO (09:11)
[2024-01-26] MEDS: Memantine HCl 5 MG TABLET PO ×2 (09:11→20:48)
[2024-01-26] MEDS: Metoprolol Succinate ER 25 MG TAB.ER.24H PO (09:11)
[2024-01-26] MEDS: Docusate Sodium 100 MG CAPSULE PO (09:11)
[2024-01-26] MEDS: Mirabegron 50 MG TAB.ER.24H PO (09:11)
[2024-01-26] MEDS: Psyllium seed 3.7 GM PACKET PO (09:18)
[2024-01-26] MEDS: lisinopriL 10 MG TABLET PO (09:18)
--- NOTE | 2024-01-26 13:34 | HO.PM.IMPN ---
Subjective Subjective Date of Service: 01/26/24 Interval History: Seen and evaluated this morning More alert and interactive pain under fair control no reported overnight events Review of Systems Review of Systems: Yes all other systems are reviewed and are negative Physical Exam Vital Signs: Vital Signs: Last Vital Signs Temp 97.4 F 01/26/24 11:33 Pulse 80 01/26/24 11:33 Resp 20 01/26/24 11:33 BP 158/78 H 01/26/24 11:33 Pulse Ox 96 01/26/24 11:33 O2 Del Method Room Air 01/26/24 11:33 O2 Flow Rate 1 01/23/24 17:00 BMI result Body Mass Index 39.1 Const: Other: Constitutional : Awake, interactive, not in distress Neck : Normal inspection, Supple Cardiovascular : irregular irregular, no JVP, trace lower extremity edema Respiratory : good bilateral air entry, no crackles, wheezes or rhonchi Gastrointestinal: soft, lax, Normal bowel sounds, Non tender Skin : Warm, Dry Extremities: LLE in cast with no significant tenderness, swelling or bleeding Neurological : Alert & oriented to self and place, No focal deficit Objective Data Active Medications Acetaminophen (Acetaminophen 325 Mg Tablet) 650 mg PO Q6H PRN PRN Reason: Pain, Mild (Pain Scale 1-3) Last Admin: 01/26/24 05:41 Dose: 650 mg Documented By: PROSPER Benzocaine (Throat Lozenge, Medicated Lozenge) 1 lozenge MUCOUS MEM Q2H PRN PRN Reason: Sore Throat Docusate Sodium (Docusate Sodium 100 Mg Capsule) 100 mg PO BID [facility] Last Admin: 01/26/24 09:11 Dose: 100 mg Documented By: BJ Ferrous Sulfate (Ferrous Sulfate 324 Mg Tablet.) 324 mg PO DAILY [facility] Last Admin: 01/26/24 09:11 Dose: 324 mg Documented By: BJ Gabapentin (Gabapentin 100 Mg Capsule) 100 mg PO BEDTIME [facility] Last Admin: 01/25/24 21:09 Dose: 100 mg Documented By: PROSPER Lisinopril (Lisinopril 10 Mg Tablet) 10 mg PO DAILY [facility]; Protocol Last Admin: 01/26/24 09:18 Dose: 10 mg Documented By: BJ Magnesium Oxide (Magnesium Oxide 400 Mg Tablet) 400 mg PO DAILY [facility] Last Admin: 01/26/24 09:11 Dose: 400 mg Documented By: BJ Memantine (Memantine Hcl 5 Mg Tablet) 5 mg PO BID [facility] Last Admin: 01/26/24 09:11 Dose: 5 mg Documented By: BJ Metoprolol Succinate (Metoprolol Succinate Er 25 Mg Tab.Er.24h) 25 mg PO DAILY [facility]; Protocol Last Admin: 01/26/24 09:11 Dose: 25 mg Documented By: BJ Mirabegron (Mirabegron 50 Mg Tab.Er.24h) 50 mg PO DAILY [facility] Last Admin: 01/26/24 09:11 Dose: 50 mg Documented By: BJ Ondansetron HCl (Ondansetron Hcl 4 Mg/2 Ml Vial) 4 mg IVPUSH Q8H PRN PRN Reason: Nausea and Vomiting Last Admin: 01/16/24 21:30 Dose: 4 mg Documented By: FRANCK Oxycodone HCl (Oxycodone Hcl Immed Release 5 Mg Tablet) 5 mg PO Q6H PRN PRN Reason: Pain, Severe (Pain Scale 7-10) Last Admin: 01/25/24 21:12 Dose: 5 mg Documented By: PROSPER Polyethylene Glycol (Polyethylene Glycol 3350 17 Gm Powd.Pack) 17 gm PO DAILY [facility] Last Admin: 01/26/24 09:10 Dose: 17 gm Documented By: BJ Psyllium Hydrophilic Mucilloid (Psyllium Seed 3.7 Gm Packet) 3.7 gm PO DAILY [facility] Last Admin: 01/26/24 09:18 Dose: 3.7 gm Documented By: BJ Senna (Sennosides 8.6 Mg Tablet) 17.2 mg PO BEDTIME [facility] Last Admin: 01/25/24 21:09 Dose: 17.2 mg Documented By: PROSPER Sodium Chloride (0.9 % Sodium Chloride Flush 3 Ml Syringe) 3 ml IVFLUSH QSHIFT [facility] Last Admin: 01/26/24 09:09 Dose: 3 ml Documented By: BJ Labs 01/26/24 06:39 01/26/24 06:39 Labs: Laboratory Results - last 24 hr 01/26/24 06:39 MCV 93.3 MCH 29.9 MCHC 32.1 RDW 17.2 H Plt Count 192 MPV 11.5 Absolute Nucleated RBC 0.020 H Nucleated RBC % (auto) 0.3 H Anion Gap 9 L Estim Creat Clear Calc 121.6 Estimated GFR > 60 Random Glucose 105 Calcium 8.3 L Assessment and Plan (1) Hematoma of left lower extremity: Status: Acute (2) ABLA (acute blood loss anemia): Status: Acute Plan 83-year-old lady with underlying dementia, recent admission for left distal femur fracture status post retrograde nail on 01/08/2024 with a bili postprocedure receiving 2 units before discharge, readmitted on 01/16/2024 with acute blood loss anemia, now status post left profundus femoris stenting on 01/21/2024 and hematoma evacuation on 01/23/2024, monitored in the intensive care unit. transferred to medical floor as she stabilized. acute on chronic anemia due to blood loss from hematoma due to recent surgery and AC with Eliquis Hb stable at 8.5 CT left leg with subq contusion/hematoma in the anterior subcutaneous soft tissues and anterior muscle compartment of the left thigh Eliquis was discontinued on admission, 2U blood given on 01/15 with appropriate rise, hematocrit dropped again on 01/16, received 1 additional unit. 01/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 Large hematoma in the anterior compartment muscles of the thigh increased in size from 01/16/2024. Patient underwent aortogram with left lower extremity runoff and left profundus femoris artery Stenting by Dr. Ford 01/20 hematocrit on 01/21 dropped and received 2 units of packed RBC due to worsening left thigh swelling patient was taken to OR for hematoma evacuation by vascular surgery. monitored in ICU breifly afterward tolerating PT Follow CBC and clinical course closely. Multifocal pneumonia with possible sepsis DC IV Unasyn finishing 7 day course of treatment seen by speech, diet upgraded to NDD3, with thin liqs; 1:1 feeds aspiration precautions blood cultures negative times 48 hours Paroxysmal atrial fibrillation continue po metoprolol Eliquis on hold , will resume after discussing with vascular surgery once hematocrit stabilizes toxic metabolic encephalopathy on a background of multifactorial cognitive impairment. likely due to acute illness, acute anemia, recent surgery, rehab stay and recent hospitalization seen by psych last hospitalization, does NOT have capacity to make medical decisions - HCP is daughter Yenni invoked continue namenda and gabapentin elevated LFTS LFTs trending down will resume statins upon discharge left femur fracture s/p IMN / continue analgesics continue bowel regimen ,seen by ortho no further intervention planned HTN continue metoprolol 25 mg daily Morbid obesity bmi 39.1, recommend low-calorie diet weight loss code status- full code DVT prophylaxis- SCPs requires ongoing inpatient stay due hematoma evacuation and anemia monitoring for rebleeding pending clinical improvement and safe discharge plan Quality Stroke Does the patient have a stroke diagnosis?: No VTE Prior VTE?: No VTE Risk Level:: Medical - moderate - high VTE Device Contraindication: N/A - Device Ordered VTE Drug Contraindication: Treatment Not Indicated
[2024-01-26] MEDS: Gabapentin 100 MG CAPSULE PO (20:47)
[2024-01-26] MEDS: Sennosides 8.6 MG TABLET 17.2 MG PO (20:47)
[2024-01-26] MEDS: oxyCODONE HCl Immed Release 5 MG TABLET PO (20:47)
--- NOTE | 2024-01-26 23:30 | PC.NURSE ---
Addendum entered by Kalee Masters RN 01/26/24 23:48: Prior note erroneously stated A&Ox12, was supposed to read A&Ox1-2. Original Note: Assumed care of pt at 19:15. Pt is A&Ox12 (mhx of dementia). Pt hypertensive on evening vitals but also c/o severe pain. Medicated with prn oxycodone with +effect. Pt denies pain. BP recheck still high 183/89 as confirmed on manual. Hx HTN on ER metoprolol discussed with covering Dr. Rasta Gonzales, written orders advised to avoid hypertensive medications at this time. Handoff report given to oncoming RN at 23:00. Please see shift assessment, tasks, and MAR for full details.
[2024-01-27] VITALS (10 sets, daily range): BP systolic 131–190; BP diastolic 54–76; PULSE 69–87; RESP 16–20; TEMP 36.2–36.3; O2SAT 93–97
[2024-01-27 06:11] LABS: Hematocrit 28.3 % (37.0-47.0); Hemoglobin 8.9 g/dl (12.0-16.0); Mean Corpuscular HGB Conc 31.4 g/dl (31.0-35.0); Mean Corpuscular Hemoglobin 29.8 pg (27.0-33.0); Mean Corpuscular Volume 94.6 fL (80.0-98.0); Mean Platelet Volume 11.5 fL (9.4-12.3); NRBC Pct Auto 0.3 /100WBC (0.0-0.2); Platelet Count 218 X10*3/uL (160-400); Red Blood Count 2.99 X10*6/uL (4.20-5.50); White Blood Count 6.1 X10*3/uL (4.8-10.8)
--- NOTE | 2024-01-27 07:54 | P.PNVS_ITS ---
Subjective Subjective Date of Service: 01/27/24 Patient reports: no new complaints and feels better Interval history: Patient seen and examined. Over the weekend no significant events noted. Patient appears to be stable in terms of hemoglobin. Pain appears to be better controlled. Difficult to ascertain true history due to patient dementia. Physical Exam Vital Signs: Vital Signs: Last Vital Signs Temp 97.3 F 01/27/24 07:42 Pulse 76 01/27/24 07:42 Resp 16 01/27/24 07:42 BP 190/64 H 01/27/24 07:42 Pulse Ox 95 01/27/24 07:42 O2 Del Method Room Air 01/27/24 07:42 O2 Flow Rate 1 01/23/24 17:00 BMI result Body Mass Index 39.1 Const: General: cooperative, healthy appearing and no acute distress Orientation/consciousness: oriented to person, oriented to place and oriented to time HEENT: Head: Yes normal to inspection Neck: Carotids: no bruits Chest: Chest palpation & inspection: normal inspection of the chest Resp: Effort & Inspection: normal respiratory effort and able to speak in complete sentences Auscultation: clear to auscultation bilaterally Cardio: Other: Left lower extremity foot warm good motor and sensation DP and PT signal. Rate: regular rate Heart sounds: S1 normal heart sound present and S2 normal heart sound present GI: Inspection: Yes normal to inspection Skin: Other: Left heel ulcer General skin exam: no rashes or lesions noted Wounds: no wounds Neuro: General: oriented to person, oriented to place, oriented to time and CN's II-XI intact bilaterally Extrem: General: Yes normal to inspection, Yes full ROM and Yes no clubbing, c yanosis or edema Psych: Appearance: grossly normal and well kempt Speech and movement: Normal speech and movement present Affect: normal affect Progress Note: A&P Assessment and plan (1) PAD (peripheral artery disease): Status: Acute Assessment and Plan: In short patient is status post stenting of left profundus femoris and subsequent hematoma evacuation with fasciotomy. Leg appears to be stable. Would continue with local dressings as the leg will continue to have drainage from the fasciotomy sites. Would recommend evaluation by Orthopedics of that knee as it did seem unstable to me during time of operation. She can follow up with us in approximately 2 weeks as an outpatient. Thank you for allowing us to assist in her care. If there are any questions or concerns please do not hesitate to contact us Time Spent With Patient Time: Total time managing care of this patient today ____ minutes. Procedures Date of Service Date of Service: 01/27/24 Quality Stroke Does the patient have a stroke diagnosis?: No VTE Prior VTE?: No VTE Risk Level:: Medical - moderate - high VTE Device Contraindication: N/A - Device Ordered VTE Drug Contraindication: Treatment Not Indicated
[2024-01-27] MEDS: Memantine HCl 5 MG TABLET PO (09:28)
[2024-01-27] MEDS: Mirabegron 50 MG TAB.ER.24H PO (09:28)
[2024-01-27] MEDS: Metoprolol Succinate ER 25 MG TAB.ER.24H PO (09:28)
[2024-01-27] MEDS: 0.9 % Sodium Chloride Flush 3 ML SYRINGE IVFLUSH (09:29)
[2024-01-27] MEDS: lisinopriL 20 MG TABLET PO (09:29)
[2024-01-27] MEDS: polyethylene glycoL 3350 17 GM POWD.PACK PO (09:29)
[2024-01-27] MEDS: Psyllium seed 3.7 GM PACKET PO (09:29)
[2024-01-27] MEDS: Acetaminophen 325 MG TABLET 650 MG PO (09:29)
[2024-01-27] MEDS: Magnesium Oxide 400 MG TABLET PO (09:29)
[2024-01-27] MEDS: Throat Lozenge, Medicated LOZENGE 1 LOZENGE MUCOUS MEM (09:29)
[2024-01-27] MEDS: Docusate Sodium 100 MG CAPSULE PO (09:29)
[2024-01-27] MEDS: Ferrous Sulfate 324 MG TABLET.DR PO (09:29)
[2024-01-27] MEDS: oxyCODONE HCl Immed Release 5 MG TABLET PO (11:51)
--- NOTE | 2024-01-27 13:40 | MHC.CLN ---
F/U PT WITH INCREASED NUTRITION RISK R/T PRESSURE INJURIES PO INTAKE 25% DIET RX:REGULAR PT RECEIVING ENSURE MAX BID TO PROMOTE WOUND HEALING SUPP. PROVIDES 300KCALS, 60G PROTEIN MONITOR PO INTAKE AND ENCOURAGE SUPPLEMENTS
--- NOTE | 2024-01-27 13:54 | MHC.CM.PN ---
Pt has improved, provider ready to determine STR placement. CM spoke to Yenni BERNSTEIN to find out which STR, and sent out referrals, awaiting response. CM will arrange for DC to STR when facility is decided upon.
--- NOTE | 2024-01-27 14:34 | MHC.CM.PN ---
Second IMM, pt was accepted at [facility], daughter / HCP Yenni in agreement with pt going there. Pt has been medically cleared and will go today via ambulance.
--- NOTE | 2024-01-27 15:25 | P.DS_ITS ---
DS: Providers Provider Date of Service: 01/27/24 Date of admission: 01/16/24 17:36 Primary care physician: Buster Hyde MD Consults: 01/16/24 14:11 Consult to Orthopedics Routine Consulting Provider: [facility] Reason for consultation: recent left IMN - significant swelling and anemia Has provider been notified: No 01/19/24 15:41 Consult to Vascular Surgery Stat Consulting Provider: [facility] Reason for consultation: left thigh hematoma Has provider been notified: Yes 01/19/24 20:18 Consult to Wound Care Routine Reason for consultation: coccyx and LLE DS: Diagnosis Discharge Diagnosis (1) Hematoma of left lower extremity: Status: Acute (2) Acute leg pain: Status: Acute (3) ABLA (acute blood loss anemia): Status: Acute (4) Dementia: Status: Acute (5) Multifocal pneumonia: Status: Acute (6) Elevated WBC count: Status: Acute DS: Summary Hospital Course Hospital Course: The patient had prolonged hospital stay. for full details please return to EMR. Admission note This is an 83-year-old female with history of dementia who was recently hospitalized for left distal femur fracture and underwent operative fixation on January 07. Following the procedure she was noted to have acute blood loss anemia and received 2 units of blood prior to her discharge. She was discharged to residential facility for rehab and close monitoring. Repeat CBC revealed anemia and she was sent back to the hospital for further evaluation. Patient remained sleepy and unable to provide any significant history. History was obtained primarily from her daughter at the bedside. Her daughter reports she had periods of confusion at the facility and receive a dose of diazepam following which time she was difficult to arouse and did not eat all day yesterday. She reportedly got IV fluid last night. In the emergency department today her H/H was noted to be 4.6/14.3. White count of 16.1. Troponin 65.6, AST 119, ALT 107. Procalcitonin was elevated at 1.32, chest x-ray showed multifocal pneumonia. She had received empiric antibiotics in the emergency department and 2 units of blood was ordered. Hospital course Patient with recent admission for left distal femur fracture status post retrograde nail on 01/08/2024, readmitted on 01/16/2024 with acute blood loss anemia with hematoma in her left thigh, status post left profundus femoris stenting on 01/21/2024 and hematoma evacuation on 01/23/2024, monitored in the intensive care unit. transferred to medical floor as she stabilized. # acute on chronic anemia due to blood loss from hematoma due to recent surgery and Eliquis. CT left leg with subq contusion/hematoma in the anterior subcutaneous soft tissues and anterior muscle compartment of the left thigh. Eliquis was discontinued on admission, 2U blood given on 01/15 with appropriate rise, hematocrit dropped again on 01/16, received 1 additional unit. 01/18 2 more units. hematocrit on 01/21 dropped and received 2 units of packed RBC. Total of 7 units PRBCs during this admission. 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 Large hematoma in the anterior compartment muscles of the thigh increased in size from 01/16/2024 so the Patient underwent aortogram with left lower extremity runoff and left profundus femoris artery Stenting by Dr. Ford 01/20. due to worsening left thigh swelling patient was taken to OR for hematoma evacuation by vascular surgery on 01/22 and monitored in ICU briefly afterward. was able to tolerate PT who recommended Short term rehab. She has significant LE edema after IV fluids and transfusions. will use Furosemide for 5 days. can be reassessed at Facility if needed longer. # Multifocal pneumonia with sepsis Treated with IV Unasyn finishing 7 day course of treatment. seen by speech therapy team who recommended diet upgraded to regular with thin liqs; 1:1 feeds. aspiration precautions. # Toxic metabolic encephalopathy on a background of multifactorial cognitive impairment. Improved back to baseline. seen by psych last hospitalization, does NOT have capacity to make medical decisions - HCP is daughter Yenni invoked. continue namenda and gabapentin # Elevated LFTS LFTs trended down during hospital stay. will resume statins upon discharge # recent left femur fracture s/p IMN 01/07, continue analgesics PRN. continue bowel regimen. Seen by ortho no further intervention planned at this point. Discharge Plan Take Lasix 20 mg daily for the next 5 days Hold Eliquis until you see dr Ford in office in 2 weeks Increase Lisinopril to 20 mg daily Increase physical activity as tolerated Time Attestation Discharge Coordination Time (in mins): 37 Quality: Safe Use of Opioids Does Pt have an Active Cancer Diagnosis on the Problem List?: No Quality: Stroke Does the patient have a stroke diagnosis?: No Physical Exam Vital Signs: Vital Signs: Last Vital Signs Temp 97.2 F 01/27/24 11:11 Pulse 75 01/27/24 12:00 Resp 20 01/27/24 11:11 BP 131/54 L 01/27/24 11:11 Pulse Ox 93 01/27/24 11:11 O2 Del Method Room Air 01/27/24 11:11 O2 Flow Rate 1 01/23/24 17:00 BMI result Body Mass Index 39.1 Const: Other: Constitutional : Awake, interactive, not in distress Neck : Normal inspection, Supple Cardiovascular : irregular irregular, no JVP, +2 lower extremity edema Respiratory : good bilateral air entry, no crackles, wheezes or rhonchi Gastrointestinal: soft, lax, Normal bowel sounds, Non tender Skin : Warm, Dry Extremities: LLE in cast with no significant tenderness, swelling or bleeding Neurological : Alert & oriented to self and place, No focal deficit DS: Data Data Completed and Pending Completed studies during hospitalization [Text1]: Pending at discharge 01/23/24 11:02 Surgical [PTH] Routine Procedures Reposition Left Lower Femur with Intramedullary Internal Fixation Device, Percutaneous Approach (01/06/24) Transfusion of Nonautologous Red Blood Cells into Peripheral Vein, Percutaneous Approach (01/06/24) Labs on day of discharge: Laboratory Results - last 24 hr 01/27/24 05:39 WBC 6.1 RBC 2.99 L Hgb 8.9 L Hct 28.3 L MCV 94.6 MCH 29.8 MCHC 31.4 RDW 17.0 H Plt Count 218 MPV 11.5 Absolute Nucleated RBC 0.020 H Nucleated RBC % (auto) 0.3 H Imaging Chest x-ray: Radiologist's impression: ITS Impressions Chest X-Ray 01/16/24 12:34 IMPRESSION: Multifocal pneumonia. Follow-up until resolution is advised. Femur CT 01/16/24 14:58 IMPRESSION: 1. Mildly displaced mildly comminuted spiral oblique fracture of the distal femur with postop changes stable compared with the prior intraoperative radiographs. 2. Subcutaneous contusion/hematoma in the anterior subcutaneous soft tissues of the left thigh and anterior muscle compartment of the left thigh. Duplex Scan Lower Extremity Artery 01/16/24 17:45 IMPRESSION: Limited exam with monophasic flow throughout the left lower extremity. The profunda femoris as well as the proximal and mid SFA are occluded with reconstitution of the distal stented SFA which is patent. No flow is seen in the tibial vessels. Venous Duplex 01/18/24 10:09 IMPRESSION: Although no deep vein thrombosis is detected, this is a significantly limited examination due to several factors, including patient body habitus, pain, limited mobility and posttraumatic soft tissue edema. The femoral vein in the mid to lower thigh cannot be adequately visualized. Lower Extremity CT 01/19/24 13:02 IMPRESSION: 1. Generalized subcutaneous edema and soft tissue swelling at the lower leg. No appreciable fluid collections or hematomas. 2. Intact left total knee prosthesis. No acute osseous findings. 3. Moderate to severe atrophy and fatty replacement of the calf musculature. 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 Large hematoma in the anterior compartment muscles of the thigh increased in size from 01/16/2024. Femur X-Ray 01/24/24 09:59 IMPRESSION: Postoperative changes as above. Stent noted in the medial soft tissues adjacent to the proximal femur Discharge Plan Discharge Anticipated Discharge Date/Time: 01/27/24 15:15 Patient Disposition: [facility] Discharge Diagnosis: Hematoma blood loss anemia Referrals: [facility] [Outside] - 1 Week Buster Hyde MD [Primary Care Provider] - 1 Week Discharge Medications: New furosemide 20 mg tablet 20 mg PO QAM Qty: 5 0RF Continued atorvastatin 10 mg tablet 10 mg PO BEDTIME gabapentin 100 mg capsule 100 mg PO TID metoprolol succinate 25 mg tablet extended release 24 hr 25 mg PO DAILY memantine 5 mg tablet 5 mg PO BID cholecalciferol (vitamin D3) 25 mcg (1,000 unit) tablet 25 mcg PO DAILY ferrous sulfate 324 mg (65 mg iron) tablet,delayed release (DR/EC) 324 mg PO DAILY Myrbetriq 50 mg tablet extended release 24 hr 50 mg PO DAILY magnesium oxide 400 mg magnesium Tablet 400 mg PO DAILY multivitamin Tablet 1 tab PO DAILY sennosides [senna] 8.6 mg Tablet 17.2 mg PO BEDTIME Rx Instructions: HOLD FOR LOOSE STOOL acetaminophen 500 mg Tablet 1,000 mg PO TID polyethylene glycol 3350 17 gram/dose Powder 17 g PO DAILY Rx Instructions: HOLD FOR LOOSE STOOL docusate sodium 100 mg Tablet 100 mg PO BID oxycodone 5 mg tablet 2.5 mg PO Q6H PRN (Reason: Pain, Moderate(Pain Scale 4-6)) Rx Instructions: Partial Fill upon patient request. oxycodone 5 mg Tablet 5 mg PO Q6H PRN (Reason: Pain (Scale Score 7-10)) Qty: 15 0RF Changed lisinopril 10 mg tablet 20 mg PO DAILY Qty: 60 0RF Held Eliquis 5 mg tablet 5 mg PO BID Hold Instructions: Hold until you follow with Dr Ford who will decide when to restart it Discharge Orders: Discharge Order (Routine); Ordered 01/27/24 Ordered By: Miriam Hernandez Diet: Advance to usual diet Activity on Discharge: As tolerated Stand Alone Forms: Patient Portal Discharge page Print Language: Northern Irish Activity Restrictions/Additional Instructions: Wound care upon discharge: ABD pads to the 2 lateral thigh and anterior thigh incisions to be changed daily and as needed as it becomes saturated. Please call Dr. Ford at [phone] for 2 week follow up for suture and staple removal Care Plan Goals: Read below Health Concerns: Read below Plan of Treatment: Read below Assessment: Take Lasix 20 mg daily for the next 5 days Hold Eliquis until you see dr Ford in office in 2 weeks Increase Lisinopril to 20 mg daily Increase physical activity as tolerated
[2024-01-27] MEDS: Furosemide 20 MG/2 ML VIAL IVPUSH (15:33)
== END 2024-01-27 16:32 | disposition skilled nursing facility (03) | DRG 853 ==
LOC: HO.ED 14:09 → HO.EDOVER 17:44 → HO.IMC 01-17 08:57 → HO.ICU 01-23 11:09 → HO.IMC 01-24 12:07
PROVIDERS: Hospitalist; Internal Medicine Pulmonary Disease; Physician Assistant; Registered Nurse Community Health; Student in an Organized Health Care Education/Training Program; Surgery Vascular Surgery; Admitting Provider Physician Assistant Medical; Emergency Provider Emergency Medicine; PCP Internal Medicine; Visit Provider Student in an Organized Health Care Education/Training Program
PROC: 04VL3DZ Restriction of Left Femoral Artery with Intraluminal Device, Percutaneous Approach (ICD-10-PCS; principal; 2024-01-21 08:30)
PROC: 0JCM0ZZ Extirpation of Matter from Left Upper Leg Subcutaneous Tissue and Fascia, Open Approach (ICD-10-PCS; principal; 2024-01-23 09:00)
DX: A41.9 Sepsis, unspecified organism (principal); G92.8 Other toxic encephalopathy; D62 Acute posthemorrhagic anemia; L76.32 Postprocedural hematoma of skin and subcutaneous tissue following other procedure; M96.840 Postprocedural hematoma of a musculoskeletal structure following a musculoskeletal system procedure; M79.A22 Nontraumatic compartment syndrome of left lower extremity; I72.8 Aneurysm of other specified arteries; F03.90 Unspecified dementia, unspecified severity, without behavioral disturbance, psychotic disturbance, mood disturbance, and anxiety; E66.01 Morbid (severe) obesity due to excess calories; I10 Essential (primary) hypertension; I48.0 Paroxysmal atrial fibrillation; Z71.3 Dietary counseling and surveillance; Y83.8 Other surgical procedures as the cause of abnormal reaction of the patient, or of later complication, without mention of misadventure at the time of the procedure; Z20.822 Contact with and (suspected) exposure to COVID-19; Z68.39 Body mass index [BMI] 39.0-39.9, adult; Z79.01 Long term (current) use of anticoagulants; Z79.899 Other long term (current) drug therapy
CPT/HCPCS: 0241U; 36415; 37226; 71045; 73552; 73700; 73701; 76937; 80048; 80053; 80076; 81001; 81003; 82040; 82140; 82272; 82550; 82947; 83605; 83735; 83880; 84100; 84145; 84484; 85007; 85014; 85018; 85025; 85027; 85610; 85730; 86850; 86900; 86901; 86923; 87040; 88304; 92526; 92610; 92950; 93005; 93926; 93971; 97163; 99152; 99153; 99285; C1758; C1760; C1769; C1874; C1887; C1894; C2623; J0131; J0295; J0690; J0696; J1100; J1170; J1940; J1956; J2060; J2250; J2270; J2405; J2704; J2795; J3010; J7120; P9016; P9047; Q9967

== ENCOUNTER → 2024-01-16 11:34 | Outpatient (BNV) | payer MEDICARE, SELFPAY | PROVIDERS: Admitting Provider Physician Assistant Medical; Emergency Provider Emergency Medicine; PCP Internal Medicine; Visit Provider Internal Medicine Cardiovascular Disease | DX: R94.31 Abnormal electrocardiogram [ECG] [EKG] (principal) | CPT/HCPCS: 93010 ==

== ENCOUNTER → 2024-01-16 13:27 | Outpatient (BNV) | payer MEDICARE, SELFPAY | PROVIDERS: Emergency Provider Emergency Medicine; PCP Internal Medicine; Visit Provider Physician Assistant Medical | DX: S80.12XA Contusion of left lower leg, initial encounter (principal); M79.605 Pain in left leg; D62 Acute posthemorrhagic anemia; F03.90 Unspecified dementia, unspecified severity, without behavioral disturbance, psychotic disturbance, mood disturbance, and anxiety; J18.9 Pneumonia, unspecified organism; D72.829 Elevated white blood cell count, unspecified | CPT/HCPCS: 99223; 99232; 99233; 99239; 99499 ==

== ENCOUNTER → 2024-01-16 13:27 | Outpatient (BNV) | payer MEDICARE, SELFPAY | PROVIDERS: Emergency Provider Emergency Medicine; PCP Internal Medicine; Visit Provider Physician Assistant | DX: M79.605 Pain in left leg (principal); J18.9 Pneumonia, unspecified organism; D72.829 Elevated white blood cell count, unspecified; D62 Acute posthemorrhagic anemia; M97.12XA Periprosthetic fracture around internal prosthetic left knee joint, initial encounter | CPT/HCPCS: 99024 ==

== ENCOUNTER → 2024-01-16 17:36 | Outpatient (BNV) | payer MEDICARE, SELFPAY | PROVIDERS: Admitting Provider Physician Assistant Medical; Emergency Provider Emergency Medicine; PCP Internal Medicine; Visit Provider Surgery Vascular Surgery | DX: I73.9 Peripheral vascular disease, unspecified (principal) | CPT/HCPCS: 27496; 37226; 75625; 75710; 76937; 99024; 99152; 99222; 99232; 99499 ==

== ENCOUNTER → 2024-01-16 17:36 | Outpatient (BNV) | payer MEDICARE, SELFPAY | PROVIDERS: Admitting Provider Physician Assistant Medical; Emergency Provider Emergency Medicine; PCP Internal Medicine; Visit Provider Internal Medicine Pulmonary Disease | DX: D62 Acute posthemorrhagic anemia (principal); I48.91 Unspecified atrial fibrillation; F03.90 Unspecified dementia, unspecified severity, without behavioral disturbance, psychotic disturbance, mood disturbance, and anxiety; S80.12XA Contusion of left lower leg, initial encounter | CPT/HCPCS: 99232; 99233 ==

== ENCOUNTER 2024-02-07 07:05 | Outpatient (REF) | payer MEDICARE, SELFPAY ==
--- NOTE | ~2024-02-07 | XR_ITS ---
EXAMINATION: XR FEMUR, LEFT CLINICAL INFORMATION: Pain in leg, unspecified COMPARISON: Left femur 2 question that the femur 01/24/2024 TECHNIQUE: AP and lateral views of the left femur were obtained. FINDINGS: Skin lex are noted. Left total knee arthroplasty in place. Retrograde gisell crossing the spiral oblique fracture of the distal diametaphysis of the femur is again noted. No change in position or alignment of the fracture fragments. Vascular stent is noted medial to the proximal femur. XR/XR femur LT 2V IMPRESSION: Postoperative changes as above. Stent noted in the medial soft tissues adjacent to the proximal femur.
== END 2024-02-07 07:06 | disposition home or self-care (01) ==
LOC: HO.HOSX 07:05
PROVIDERS: Visit Provider Physician Assistant
DX: S72.353A Displaced comminuted fracture of shaft of unspecified femur, initial encounter for closed fracture (principal); M79.606 Pain in leg, unspecified; Y99.9 Unspecified external cause status; X58.XXXA Exposure to other specified factors, initial encounter; Y93.9 Activity, unspecified; Y92.9 Unspecified place or not applicable
CPT/HCPCS: 73552; 99212

== ENCOUNTER 2024-02-07 10:39 | Outpatient (AMB) | payer MEDICARE, SELFPAY ==
--- NOTE | 2024-02-07 11:37 | A.OFFVIS_ITS ---
Intake Visit Reasons: PO- Left hip retrograde nail, 01/08/24 Allergies gentamicin [GENTAMICIN] Allergy (Intermediate, Verified 01/23/24 08:27) SWELLING sulfamethoxazole [From BACTRIM] Allergy (Intermediate, Verified 01/23/24 08:27) RASH trimethoprim [From BACTRIM] Allergy (Intermediate, Verified 01/23/24 08:27) RASH HPI HPI PO- Left hip retrograde nail, 01/08/24: Details: 83-year-old female who returns to the office today for post-op left hip retrograde nail, 01/08/24. She continues to have pain in her hip however she is doing well otherwise. She has been non weight bearing on her hips. She has no other concerns. [facility] Medical History (Updated 02/04/24 @ 00:01 by Jesus Motta) Dementia Paroxysmal atrial fibrillation Peripheral neuropathy TIA (transient ischemic attack) PAD (peripheral artery disease) Foot drop Carotid artery stenosis Afib Hyperlipidemia Anemia Hypertension Surgical History S/P aortogram with runoff H/O foot surgery History of bilateral knee replacement H/O tubal ligation History of cholecystectomy H/O endarterectomy Social History Household Members: Children and Caregiver Housing: House Do you presently have visiting nurse or other home services: Yes Unable to assess alcohol history related to: Unable to respond Alcohol intake: former Comment: as per previous Patient Tobacco Use Status: Never used Tobacco Advance Directives Date on File: 01/13/24 service: No Review of Systems Const All systems reviewed & are unremarkable except as noted in HPI and below Physical Exam Extrem Other: Left hip: Incision clean, dry and intact. No erythema or drainage. She has soft compartment. NVI. Results Reviewed Results Reviewed: Xrays were obtained in the office today and personally reviewed by me of the right femur show intact hardware with interval healing and stable fracture Assessment & Plan Assessment & Plan (1) Comminuted fracture of shaft of femur: Code(s): S72.353A - Displaced comminuted fracture of shaft of unspecified femur, initial encounter for closed fracture Category: Medical Plan Dr. Reaves was available to see the patient with me today. lex removed today, steri stips applied. She will continue non weight bearing of the LLE and see me back in 8 weeks with new x-rays, sooner if needed. Orders: Orders XR femur LT 2V 02/07/24 M79.606 - Pain in leg, unspecified Patient Instructions: Scribed for Lanny Babb PA-C, by Dong Muñoz electromedical service engineer, on 02/07/2024 at 10:45 AM EST. I, Lanny Babb PA-C, have personally reviewed and agree with the information entered by the scribe. Coding Level of Care Code Global (98262) Diagnoses Comminuted fracture of shaft of femur S72.353A
== END 2024-02-07 11:36 | disposition home or self-care (01) ==
PROVIDERS: PCP Internal Medicine; Visit Provider Physician Assistant
DX: S72.353A Displaced comminuted fracture of shaft of unspecified femur, initial encounter for closed fracture (principal)
CPT/HCPCS: 99024

== ENCOUNTER 2024-02-18 13:03 | Outpatient (AMB) | payer MEDICARE, SELFPAY ==
--- NOTE | 2024-02-18 13:04 | MHC.OFFVIS ---
Intake Visit Reasons: Follow Up Angio Intake Note: Patient presents for follow up. Had a right leg angiogram on January 20 and also had a left hematoma evacuation on January 22. States she is currently experiencing pain in her left foot that feels like a burning sensation on the heel. Accompanied by: Daughter Allergies gentamicin [GENTAMICIN] Allergy (Intermediate, Verified 02/18/24 13:09) SWELLING sulfamethoxazole [From BACTRIM] Allergy (Intermediate, Verified 02/18/24 13:09) RASH trimethoprim [From BACTRIM] Allergy (Intermediate, Verified 02/18/24 13:09) RASH HPI HPI Follow Up Angio: Details: Complex 83-year-old female who had a prior left femur fracture and underwent went stenting of left profundus femorals. She had continued bleeding and subsequently underwent evacuation of thigh hematoma and left thigh fasciotomies. She is doing relatively well she is currently in a rehab facility. She has seen orthopedics in follow-up. She now presents for us in follow-up. Daughter is at bedside [facility] Medical History (Updated 02/19/24 @ 10:46 by Harlan Fodr MD) PAD (peripheral artery disease) Dementia Paroxysmal atrial fibrillation Peripheral neuropathy TIA (transient ischemic attack) Foot drop Carotid artery stenosis Afib Hyperlipidemia Anemia Hypertension Surgical History S/P aortogram with runoff H/O foot surgery History of bilateral knee replacement H/O tubal ligation History of cholecystectomy H/O endarterectomy Social History Household Members: Children and Caregiver Housing: House Do you presently have visiting nurse or other home services: Yes Unable to assess alcohol history related to: Unable to respond Alcohol intake: former Comment: as per previous Patient Tobacco Use Status: Never used Tobacco Advance Directives Date on File: 01/13/24 service: No Review of Systems Const All systems reviewed & are unremarkable except as noted in HPI and below Reports no additional complaints ENT Reports Normal hearing present Card Denies chest pain, Denies chest pain at rest, Denies chest pain with activity and Denies pedal edema Resp Denies cough GI Denies abdominal pain Musc Denies abnormal gait, Denies muscle cramps and Denies radiating pain into limb Skin/Breast Denies skin ulcer and Denies wounds Neuro Reports Normal hearing present and Denies abnormal gait Psych Reports no additional complaints Physical Exam Const Other: Very emotional but is in stretcher General: cooperative, healthy appearing, comfortable and anxious Orientation/consciousness: oriented to person, oriented to place and oriented to time HEENT Head: Yes normal to inspection Neck Neck: Yes normal visual inspection Carotids: no bruits Chest Chest palpation & inspection: normal inspection of the chest Resp Effort & Inspection: normal respiratory effort and able to speak in complete sentences Auscultation: clear to auscultation bilaterally, no crackles, no rales, no rhonchi and no wheezes Cardio Rate: regular rate Rhythm: regular rhythm Heart sounds: S1 normal heart sound present and S2 normal heart sound present Bruits: no carotid bruits Peripheral pulses: Peripheral pulses 2+ throughout GI Inspection: Yes normal to inspection Skin Other: Left thigh incisions healing well Wounds: no wounds Hair: normal Neuro General: oriented to person, oriented to place and oriented to time Cranial nerves: Yes CN's II-XII intact bilaterally and Yes Normal hearing present Cognition (Neuro): normal cognition Motor exam (neuro): 5/5 motor strength present throughout Extrem Other: venous exam: No significant superficial varicosities or spider telangiectasias, minimal edema General: No clubbing, No cyanosis and No edema Psych Appearance: grossly normal Mental Status: mental status grossly normal Speech and movement: Normal speech and movement present Assessment & Plan Assessment & Plan (1) PAD (peripheral artery disease): Comment: 01/21/2024- left profundus femorals stenting 01/23/2024 - left thigh hematoma evacuation with fasciotomy Code(s): I73.9 - Peripheral vascular disease, unspecified Category: Medical Plan: In short patient is doing extremely well postoperatively. All incisions appear to be doing relatively well. She is stable from a vascular perspective to resume activity. PT OT per Orthopedics. She can resume anticoagulation for her AFib. She will see us back in approximately 3 months time for surveillance arterial follow-up. Thank you for allowing us to assist in her care. Orders: Orders US arterial duplex LE BI 3 Months I73.9 - Peripheral vascular disease, unspecified Coding Level of Care Code Est Pt Level 4 (00308) Diagnoses PAD (peripheral artery disease) I73.9
== END 2024-02-18 13:44 | disposition home or self-care (01) ==
LOC: HO.HVS 13:03
PROVIDERS: PCP Internal Medicine; Visit Provider Surgery Vascular Surgery
DX: I73.9 Peripheral vascular disease, unspecified (principal)
CPT/HCPCS: 99024

== ENCOUNTER → 2024-02-18 13:03 | Outpatient (BNVA) | payer MEDICARE, SELFPAY | PROVIDERS: PCP Internal Medicine; Visit Provider Surgery Vascular Surgery | DX: I73.9 Peripheral vascular disease, unspecified (principal); Z95.820 Peripheral vascular angioplasty status with implants and grafts | CPT/HCPCS: 99212 ==

== ENCOUNTER 2024-04-06 12:43 | Outpatient (AMB) | payer MEDICARE, SELFPAY ==
--- NOTE | 2024-04-06 14:55 | A.OFFVIS_ITS ---
Intake Visit Reasons: PO- Left hip retrograde nail, 01/08/24 Intake Note: Shonda is a 83 year old female who presents today in a wheel chair for a post operative visit s/p left hip retrograde nail, 01/08/24 NE. Patient reports she is doing well, states mild pain however her pain increases with transfers. States she is nervous about todays visit. Allergies gentamicin [GENTAMICIN] Allergy (Intermediate, Verified 04/06/24 14:57) SWELLING sulfamethoxazole [From BACTRIM] Allergy (Intermediate, Verified 04/06/24 14:57) RASH trimethoprim [From BACTRIM] Allergy (Intermediate, Verified 04/06/24 14:57) RASH Medication List - Last Reconciled 04/06/24 by Lanny Babb PA-C acetaminophen 1,000 mg PO TID apixaban (Eliquis) 5 mg PO BID atorvastatin 10 mg PO BEDTIME cholecalciferol (vitamin D3) 25 mcg PO DAILY docusate sodium 100 mg PO BID ferrous sulfate 324 mg PO DAILY furosemide 20 mg PO QAM gabapentin 100 mg PO TID lisinopril 20 mg (2 x 10 mg) PO DAILY magnesium oxide 400 mg PO DAILY memantine 5 mg PO BID metoprolol succinate ER 25 mg PO DAILY mirabegron ER (Myrbetriq) 50 mg PO DAILY multivitamin 1 tab PO DAILY oxycodone 2.5 mg PO Q6H PRN oxycodone 5 mg PO Q6H PRN polyethylene glycol 3350 17 grams PO DAILY sennosides (senna) 17.2 mg PO BEDTIME HPI HPI PO- Left hip retrograde nail, 01/08/24: Details: 83-year-old female who returns to the office today in a wheelchair for post-op left hip retrograde nailing, 01/08/[address] Reaves. She reports she has mild pain that aggravated with transfers. Her pain comes with using her crutches while ambulating. She is doing well otherwise and has no concerns today. [facility] Medical History (Updated 02/19/24 @ 10:46 by Harlan Ford MD) PAD (peripheral artery disease) Dementia Paroxysmal atrial fibrillation Peripheral neuropathy TIA (transient ischemic attack) Foot drop Carotid artery stenosis Afib Hyperlipidemia Anemia Hypertension Surgical History S/P aortogram with runoff H/O foot surgery History of bilateral knee replacement H/O tubal ligation History of cholecystectomy H/O endarterectomy Social History Household Members: Children and Caregiver Housing: House Do you presently have visiting nurse or other home services: Yes Unable to assess alcohol history related to: Unable to respond Alcohol intake: former Comment: as per previous Patient Tobacco Use Status: Never used Tobacco Advance Directives Date on File: 01/13/24 service: No Review of Systems Const All systems reviewed & are unremarkable except as noted in HPI and below Physical Exam Extrem Other: Left hip: Incision clean, dry and intact. No erythema or drainage. She has soft compartment. NVI. Results Reviewed Results Reviewed: Xrays were obtained in the office today and personally reviewed by me of the right femur show intact hardware with interval healing and stable fracture Assessment & Plan Assessment & Plan (1) Comminuted fracture of shaft of femur: Code(s): S72.353A - Displaced comminuted fracture of shaft of unspecified femur, initial encounter for closed fracture Category: Medical Plan Patient?s son who is also a healthcare proxy was available via telephone. We discussed how the patient is primarily transferred with lift only and she does not weight bear, so we will continue with the limitations. I would like to see her back in 8 weeks for a follow-up x-rays, sooner if needed. Orders: Orders XR femur LT 2V 04/06/24 M79.606 - Pain in leg, unspecified XR femur LT 2V 04/06/24 M79.606 - Pain in leg, unspecified XR pelvis 1-2V 04/06/24 M25.559 - Pain in unspecified hip Patient Instructions: Scribed for Lanny Babb PA-C, by Dong Muñoz medical secretary receptionist, on 04/06/2024 at 2:45 PM EST.? I, Lanny Babb PA-C, have personally reviewed and agree with the information entered by the scribe. Coding Level of Care Code Global (68831) Diagnoses Comminuted fracture of shaft of femur S72.353A
== END 2024-04-06 15:30 | disposition home or self-care (01) ==
LOC: HO.HOS 12:43
PROVIDERS: PCP Internal Medicine; Visit Provider Physician Assistant
DX: S72.353A Displaced comminuted fracture of shaft of unspecified femur, initial encounter for closed fracture (principal)
CPT/HCPCS: 99024

== ENCOUNTER 2024-04-06 14:02 | Outpatient (REF) | payer MEDICARE, SELFPAY ==
--- NOTE | ~2024-04-06 | XR_ITS ---
EXAMINATION: XR PELVIS XR FEMUR, LEFT CLINICAL INFORMATION: Postoperative follow-up. COMPARISON: Radiographs 02/07/2024. TECHNIQUE: AP radiograph of the pelvis. AP and lateral radiographs of the left femur. FINDINGS: Osteopenia. Mild/moderate bilateral hip osteoarthritis. The left femur intramedullary nail and screws appear intact and in stable position. The distal femur fracture is in stable alignment with no definite osseous bridging or significant callus formation. No new abnormality. XR/XR pelvis 1-2V IMPRESSION: Stable alignment of the distal femur fracture with no definite osseous bridging or significant callus formation. No new abnormality.
--- NOTE | ~2024-04-06 | XR_ITS ---
EXAMINATION: XR PELVIS XR FEMUR, LEFT CLINICAL INFORMATION: Postoperative follow-up. COMPARISON: Radiographs 02/07/2024. TECHNIQUE: AP radiograph of the pelvis. AP and lateral radiographs of the left femur. FINDINGS: Osteopenia. Mild/moderate bilateral hip osteoarthritis. The left femur intramedullary nail and screws appear intact and in stable position. The distal femur fracture is in stable alignment with no definite osseous bridging or significant callus formation. No new abnormality. XR/XR femur LT 2V IMPRESSION: Stable alignment of the distal femur fracture with no definite osseous bridging or significant callus formation. No new abnormality.
== END 2024-04-06 14:03 | disposition home or self-care (01) ==
LOC: HO.XRAY 14:02
PROVIDERS: PCP Internal Medicine; Visit Provider Physician Assistant
DX: S72.35 Comminuted fracture of shaft of femur (principal); M25.552 Pain in left hip
CPT/HCPCS: 72170; 73552; 99212

== ENCOUNTER 2024-05-14 11:49 | Inpatient (IN) | payer MEDICARE, SELFPAY ==
[2024-05-14] VITALS (9 sets, daily range): BP systolic 96–124; BP diastolic 35–98; PULSE 82–89; RESP 16–19; TEMP 36.9–37.3; O2SAT 95–96; BMI 35.4
--- NOTE | ~2024-05-14 | CT_ITS ---
EXAMINATION: CTA CHEST PE STUDY, CT ABDOMEN AND PELVIS CLINICAL INFORMATION: Leukocytosis, confusion, transaminitis COMPARISON: No pertinent prior studies are available for comparison. TECHNIQUE: Prior to contrast administration, noncontrast localization images were obtained. After the administration of 100 mL of Omnipaque nonionic IV contrast, contiguous thin slice helical images were obtained through the thorax. Following this the examination was continued through the abdomen and then pelvis. Reformatted MIP images in the coronal and sagittal planes as well as thin slice reformatted images of coronal and sagittal planes were obtained at the acquisition workstation. This CT examination was performed using dose optimization techniques as appropriate, variously including the following: *Automated exposure control *Adjustment of mA and/or kV according to patient size (this includes techniques or standardized protocols for targeted exams where dose is matched to indication/reason for exam; i.e. extremities or head) *Use of iterative reconstruction technique DLP: 1496 mGy-cm. FINDINGS: CHEST: The bolus timing on this study was acceptable for visualization of the pulmonary arterial tree. Although degraded by respiratory motion artifact, there are no intraluminal pulmonary arterial filling defects present to suggest central pulmonary embolism. Dependent airspace changes likely reflecting bibasilar atelectasis. No suspicious abnormal pulmonary nodules or masses are appreciated. No significant hilar or mediastinal adenopathy. There is no evidence of pleural effusion or pneumothorax. The heart is normal in size. No evidence of ventricular septal bowing or right heart strain. Vascular calcification within the aorta and coronary vessels. Prominent mitral annular calcification. There is no pericardial effusion or pericardial thickening. ABDOMEN/PELVIS: Liver, Gallbladder and Biliary Tree: The liver is normal in size, shape, and attenuation. Small low-attenuation probable subcapsular cyst in segment 6 of the liver too small to characterize further. No suspicious focal hepatic lesion. Gallbladder surgically absent and mild biliary ductal prominence likely within normal limits for postcholecystectomy state. Pancreas: Unremarkable. Spleen: Unremarkable. Adrenal Glands: Unremarkable. Kidneys and Ureters: The kidneys are normal in size, shape, and attenuation. No hydronephrosis, hydroureter, or calculi seen. No perinephric stranding. Bladder: Bladder is partially decompressed and unremarkable. Likely urethral bulky agent noted. Gastrointestinal Tract: Extensive colonic diverticulosis more so in the sigmoid colon. I do not appreciate any colonic wall thickening or pericolonic inflammatory change to suggest diverticulitis. Normal-appearing appendix in the right lower quadrant. Visualized small bowel unremarkable Abdominal Wall: No significant hernia is appreciated. Lymphovascular Structures: No lymphadenopathy. The aorta is unremarkable. Pelvic Viscera: Incidental simple appearing 2.7 cm left adnexal cyst. Osseous Structures: Extensive multilevel degenerative changes in the spine with vertebroplasty cement at L1 and L2 CT/CT angio chest PE protocol IMPRESSION: 1. No evidence for central pulmonary emboli. Dependent airspace changes likely reflecting atelectasis. 2. No acute intra-abdominal process. Chronic appearing changes as described. 3. VTE: Negative.
--- NOTE | ~2024-05-14 | CT_ITS ---
EXAMINATION: CT head/brain wo IV con CLINICAL INFORMATION: CONFUSION COMPARISON: CT head August 14, 2023 TECHNIQUE: Contiguous axial imaging was performed from the skull base to vertex without intravenous contrast. Sagittal and coronal reformatted images were obtained. This CT examination was performed using dose optimization techniques as appropriate, variously including the following: * Automated exposure control * Adjustment of mA and/or kV according to patient size (this includes techniques or standardized protocols for targeted exams where dose is matched to indication/reason for exam; i.e. extremities or head) Use of iterative reconstruction technique DLP: 735 mGy-cm FINDINGS: Moderate global cerebral volume loss with redemonstrated severe disproportionate atrophy of the right temporal pole with ex vacuo dilatation of the right temporal horn and to a much lesser extent the left temporal lobe. Patchy periventricular and deep white matter hypoattenuation is nonspecific but likely reflects sequelae of mild chronic microangiopathy. No territorial loss of lópez-white differentiation. No acute intracranial hemorrhage or extra-axial fluid collection. No mass lesion, significant mass effect, or herniation pattern. Intracranial calcific atherosclerotic disease. Lens replacements. Paranasal sinuses and mastoid air cells are well aerated. Osseous structures are intact. CT/CT head/brain wo IV con IMPRESSION: No acute intracranial abnormality. Redemonstrated moderate global cerebral volume loss with disproportionate severe atrophy of the anterior right temporal lobe, and to a much lesser extent the left anterior temporal lobe, that can be correlated clinically for the possibility of semantic variant primary progressive aphasia. Electronically signed by: Anita Raman MD 05/28/2024 01:49 AM EDT
--- NOTE | ~2024-05-14 | XR_ITS ---
EXAMINATION: XR CHEST 2 VIEW CLINICAL INFORMATION: Confusion COMPARISON: 01/16/2024 TECHNIQUE: AP and lateral views of the chest obtained. FINDINGS: There are low volumes but the lungs are clear. On the lateral radiograph, the left and right costophrenic sulci appear blunted. The cardiac silhouette is magnified by the AP position. XR/XR chest 2V IMPRESSION: 1. Poor inspiratory effort. 2. Small bilateral pleural fluid or thickening.
--- NOTE | 2024-05-14 11:59 | ED.GENADULT ---
HPI - General Adult General Chief complaint: Urogenital-Female Stated complaint: UTI, disoriented Time Seen by Provider: 05/14/24 13:53 History of Present Illness ED Provider: Dr. Chandler HPI narrative: 84 y/o F patient; PMH dementia, atrial fibrillation on Eliquis, hx TIA, PAD, CAD, HTN, HLD; presents from home with report of five days of increased confusion, lethargy, and altered mental status (delusions/visions and hallucinations). The patient was recently diagnosed with a UTI on 05/07 which is being treated with Macrobid (however due to a confusion with the pharmacy the patient has only received one dose to date). The patient has 29/04 nursing assistance at home. They deny any: fever or chills, vomiting, coughing. No known sick contacts. They report the patient has occasionally complained about something feeling wrong in her stomach for the last few days. Further history from patient is limited due to mental status. History also obtained from patient's home nursing assistance and son with whom the patient lives. Related Data Home Medications ?Medication ?Instructions ?Recorded ?Confirmed apixaban 5 mg tablet (Eliquis) 5 mg PO BID 01/06/24 04/06/24 atorvastatin 10 mg tablet 10 mg PO BEDTIME 01/06/24 04/06/24 cholecalciferol (vitamin D3) 25 25 mcg PO DAILY 01/06/24 04/06/24 mcg (1,000 unit) tablet ferrous sulfate 324 mg (65 mg 324 mg PO DAILY 01/06/24 04/06/24 iron) tablet,delayed release gabapentin 100 mg capsule 100 mg PO TID 01/06/24 04/06/24 magnesium oxide 400 mg PO DAILY 01/06/24 01/16/24 memantine 5 mg tablet 5 mg PO BID 01/06/24 04/06/24 metoprolol succinate 25 mg 25 mg PO DAILY 01/06/24 04/06/24 tablet,extended release 24 hr mirabegron 50 mg tablet,extended 50 mg PO DAILY 01/06/24 04/06/24 release 24 hr (Myrbetriq) multivitamin 1 tab PO DAILY 01/06/24 04/06/24 acetaminophen 500 mg tablet 1,000 mg PO TID 01/16/24 04/06/24 docusate sodium 100 mg tablet 100 mg PO BID 01/16/24 04/06/24 oxycodone 5 mg tablet 2.5 mg PO Q6H PRN Pain, 01/16/24 04/06/24 Moderate(Pain Scale 4-6) polyethylene glycol 3350 17 17 g PO DAILY 01/16/24 04/06/24 gram/dose oral powder sennosides 8.6 mg tablet (senna) 17.2 mg PO BEDTIME 01/16/24 04/06/24 Previous Rx's ?Medication ?Instructions ?Recorded furosemide 20 mg tablet 20 mg PO QAM #5 tabs 01/27/24 lisinopril 10 mg tablet 20 mg (2 x 10 mg) PO DAILY #60 tabs 01/27/24 oxycodone 5 mg tablet 5 mg PO Q6H PRN Pain (Scale Score 01/27/24 7-10) #15 tabs Allergies Allergy/AdvReac Type Severity Reaction Status Date / Time gentamicin [GENTAMICIN] Allergy Intermediate SWELLING Verified 05/14/24 12:02 sulfamethoxazole Allergy Intermediate RASH Verified 05/14/24 12:02 [From BACTRIM] trimethoprim [From BACTRIM] Allergy Intermediate RASH Verified 05/14/24 12:02 Review of Systems Review of Systems: Yes Unobtainable due to mental status PMFSH Past Medical History Attestation statement: The following information was validated with the patient. Source: old records reviewed Medical History PAD (peripheral artery disease) Dementia Paroxysmal atrial fibrillation Peripheral neuropathy TIA (transient ischemic attack) Foot drop Carotid artery stenosis Afib Hyperlipidemia Anemia Hypertension Surgical History S/P aortogram with runoff H/O foot surgery History of bilateral knee replacement H/O tubal ligation History of cholecystectomy H/O endarterectomy Social History Social History Household Members: Children and Caregiver Housing: House Do you presently have visiting nurse or other home services: Yes Unable to assess alcohol history related to: Unable to respond Alcohol intake: former Comment: as per previous Patient Tobacco Use Status: Never used Tobacco Advance Directives: Yes Advance Directives on File: Yes Advance Directives Date on File: 01/13/24 service: No Physical Exam ED Vital Signs: Vital Signs - 24 hr 05/14/24 11:58 05/14/24 14:06 05/14/24 15:45 Temperature 98.5 F Pulse Rate 84 82 88 Respiratory Rate 18 18 16 Blood Pressure 96/45 L 108/44 L 104/49 L Pulse Oximetry 95 95 96 Oxygen Delivery Method Room Air Room Air Room Air 05/14/24 16:15 05/14/24 16:52 05/14/24 17:36 Temperature Pulse Rate 85 85 89 Respiratory Rate 18 17 19 Blood Pressure 103/55 L 118/36 L 99/35 L Pulse Oximetry 96 95 95 Oxygen Delivery Method Room Air Room Air Room Air 05/14/24 17:42 05/14/24 20:29 Temperature Pulse Rate 89 87 Respiratory Rate 17 18 Blood Pressure 116/48 L 124/98 H Pulse Oximetry 95 96 Oxygen Delivery Method Room Air BMI result Body Mass Index 35.4 Patient is afebrile with soft normal BP. Const General: cooperative HENMT Head: Yes normal to inspection and Yes atraumatic Eyes General: appearance normal, both eyes and all related structures Pupils: Equal, round and reactive pupils present EOM: EOMs intact bilaterally Neck Neck: Yes normal visual inspection, Yes full ROM, Yes supple and No tender Chest Chest palpation & inspection: normal inspection of the chest and normal palpation of entire chest wall Resp Effort & Inspection: normal respiratory effort, able to speak in complete sentences, no cough and no respiratory distress Auscultation: clear to auscultation bilaterally Cardio Rate: regular rate Rhythm: regular rhythm Peripheral pulses: Peripheral pulses 2+ throughout GI Inspection: Yes normal to inspection, No Abdominal wall edema and No distended Palpation (GI): Soft to palpation, not firm, nontender, no guarding and not rigid Auscultation: normal bowel sounds Back/Spine/Pelvis Other: Mild sacral erythema without significant skin breakage Skin Other: Well healing left mary ulceration without surrounding erythema Neuro Other: AOx1 to self Moving all extremities Sensation intact Cranial nerves: Yes Equal, round and reactive pupils present Course Course Course Narrative: This is a Rapid Medical Examination (RME) performed by Mahesh Bello PA-C in triage. Full HPI, ROS, assessment and treatment plan per primary provider in the Main ED. 84 yo female here w/ caretakers for increased confusion and fatigue. diagnosed w/ UTI 1 wk ago. started on macrobid, caretakers believe she may be having a reaction to the antibiotic. has been reporting visual hallucinations. + Oriented to person, place. not year. believes its 1954. no facial droop. no pronator drift. Plan: labs, cxr, ct, UA Reevaluation(s) Reevaluation #1: Patient is afebrile with soft normal BP. Reviewed triage orders. Added CT Abdomen/Pelvis w IV Contrast. Added direct/indirect bilirubin and troponin. Reviewed labs. COVID/Flu/RSV negative. Significant leukocytosis with bandemia 8%. Total bili 1.5. AST/ALT 323/279. Alk Phos 126. LFTs from 01/2024 without transaminitis. Started on Zosyn and Vancomycin. Provided 1L IVF. CXR with small bilateral pleural fluid or thickening. Added CT Chest. CTA Chest without evidence of PE. Dependent airspace disease felt to be 2/[address] Abdomen/Pelvis without acute abnormalities. Plan: Admit to hospitalist for encephalopathy, transaminitis, leukocytosis with bandemia Medications Administered Discontinued Medications Generic Name Dose Route Start Last Admin Trade Name Freq PRN Reason Stop Dose Admin Piperacillin Sod/Tazobactam 50 mls @ 100 mls/hr 05/14/24 13:57 05/14/24 15:44 Sod 3.375 gm/ Sodium Chloride IV 05/14/24 14:26 Infused ONCE ONE Infusion Sodium Chloride 1,000 mls @ 999 mls/hr 05/14/24 14:00 05/14/24 16:51 Ns IV 05/14/24 15:00 Infused .Q1H1M MARKEL Infusion Vancomycin HCl 2,000 mg in 500 mls @ 250 mls/hr 05/14/24 16:00 05/14/24 18:52 Vancomycin/Ns IV 05/14/24 17:59 Infused ONCE ONE Infusion Iohexol 100 ml 05/14/24 17:46 05/14/24 17:46 Iohexol 350 Mg/Ml 100 Ml Infus..Btl IV 05/14/24 17:47 85 ml ONCE ONE Administration Medical Decision Making Lab Data 05/14/24 12:20 05/14/24 12:20 Labs: Lab Results 05/14/24 05/14/24 05/14/24 Range/Units 12:20 14:42 15:47 WBC 16.9 H (4.8-10.8) X10*3/uL RBC 3.81 L D (4.20-5.50) X10*6/uL Hgb 12.6 D (12.0-16.0) g/dl Hct 36.6 L D (37.0-47.0) % MCV 96.1 (80.0-98.0) fL MCH 33.1 H (27.0-33.0) pg MCHC 34.4 (31.0-35.0) g/dl RDW 13.9 (11.0-16.0) % Plt Count 217 (160-400) X10*3/uL MPV 11.3 (9.4-12.3) fL Immature Gran % (Auto) Cancelled Neut % (Auto) Cancelled Lymph % (Auto) Cancelled Ocean % (Auto) Cancelled Eos % (Auto) Cancelled Baso % (Auto) Cancelled Lymph # (Auto) Cancelled [place] # (Auto) Cancelled Eos # (Auto) Cancelled Baso # (Auto) Cancelled Abs Immat Gran (auto) Cancelled Absolute Neuts (auto) Cancelled Absolute Nucleated RBC 0.000 (0.0-0.012) X10*3/uL Nucleated RBC % (auto) 0.0 (0.0-0.2) /100WBC Neutrophils % (Manual) 85 H (45-73) % Band Neutrophils % 8 H (3-5) % Lymphocytes % (Manual) 4 L (20-40) % Monocytes % (Manual) 2 (2-11) % Basophils % (Manual) 1 (0-2) % Abs Neuts (Manual) 15.7 H (2.0-8.3) X10*3/uL Lymphocytes # (Manual) 0.7 L (1.2-4.9) X10*3/uL Monocytes # (Manual) 0.3 (0.1-1.2) X10*3/uL Basophils # (Manual) 0.2 (0.0-0.2) X10*3/uL Toxic Vacuolation PRESENT Platelet Estimate NORMAL (NORMAL) Plt Morphology Comment NORMAL RBC Morphology NORMAL Sodium 139 (135-145) mmol/L Potassium 4.1 (3.3-5.1) mmol/L Chloride 106 (96-108) mmol/L Carbon Dioxide 26 (22-29) mmol/L Anion Gap 11 L (12-20) BUN 30 H (9-16) mg/dL Creatinine 0.66 (0.5-1.4) mg/dL Estim Creat Clear Calc 72.9 Estimated GFR > 60 Random Glucose 120 H (60-115) mg/dL Lactic Acid 1.5 (0.5-2.0) mmol/L Calcium 10.0 D (8.4-10.2) mg/dL Magnesium 2.0 (1.6-2.6) mg/dL Total Bilirubin 1.5 H (0.0-1.0) mg/dL Direct Bilirubin 0.6 H (0.0-0.5) mg/dL AST 323 H (5-31) U/L ALT 279 H (0-31) U/L Alkaline Phosphatase 126 H (39-117) U/L Ammonia 32 (13-55) umol/L Total Creatine Kinase 65 (26-140) U/L Troponin I High Sens 4.5 D (<3.5-17.0) ng/L B-Natriuretic Peptide (<100) pg/mL Total Protein 6.8 (6.5-8.0) g/dL Albumin 3.6 (3.5-5.0) g/dL Lipase 11 (8-78) U/L TSH 0.87 (0.32-4.0) uIU/mL Urine Color Dark Yellow Urine Appearance Clear Urine pH 5.5 (5.0-9.0) Ur Specific [place] 1.020 (1.005-1.025) Urine Protein 30 (1+) H (Neg-Trace) mg/dL Urine Glucose (UA) Negative (Negative) mg/dL Urine Ketones Negative (Negative) mg/dL Urine Blood Negative (Negative) Urine Nitrite Negative (Negative) Ur Leukocyte Esterase Small (1+) H (Negative) Urine RBC 0-2 (0-2) /HPF Urine WBC 0-5 (0-5) /HPF Ur Squamous Epith Cells 0-2 (0-2) /HPF Urine Bacteria None Seen (None Seen) Hyaline Casts 0-2 (0-2) /LPF Influenza Type A (PCR) NEGATIVE (Negative) Influenza Type B (PCR) NEGATIVE (Negative) RSV RNA Qual (PCR) NEGATIVE (Negative) SARS-CoV-2 RNA (RT-PCR) NEGATIVE (Negative) 05/14/24 Range/Units 17:48 WBC (4.8-10.8) X10*3/uL RBC (4.20-5.50) X10*6/uL Hgb (12.0-16.0) g/dl Hct (37.0-47.0) % MCV (80.0-98.0) fL MCH (27.0-33.0) pg MCHC (31.0-35.0) g/dl RDW (11.0-16.0) % Plt Count (160-400) X10*3/uL MPV (9.4-12.3) fL Immature Gran % (Auto) Neut % (Auto) Lymph % (Auto) Ocean % (Auto) Eos % (Auto) Baso % (Auto) Lymph # (Auto) [place] # (Auto) Eos # (Auto) Baso # (Auto) Abs Immat Gran (auto) Absolute Neuts (auto) Absolute Nucleated RBC (0.0-0.012) X10*3/uL Nucleated RBC % (auto) (0.0-0.2) /100WBC Neutrophils % (Manual) (45-73) % Band Neutrophils % (3-5) % Lymphocytes % (Manual) (20-40) % Monocytes % (Manual) (2-11) % Basophils % (Manual) (0-2) % Abs Neuts (Manual) (2.0-8.3) X10*3/uL Lymphocytes # (Manual) (1.2-4.9) X10*3/uL Monocytes # (Manual) (0.1-1.2) X10*3/uL Basophils # (Manual) (0.0-0.2) X10*3/uL Toxic Vacuolation Platelet Estimate (NORMAL) Plt Morphology Comment RBC Morphology Sodium (135-145) mmol/L Potassium (3.3-5.1) mmol/L Chloride (96-108) mmol/L Carbon Dioxide (22-29) mmol/L Anion Gap (12-20) BUN (9-16) mg/dL Creatinine (0.5-1.4) mg/dL Estim Creat Clear Calc Estimated GFR Random Glucose (60-115) mg/dL Lactic Acid (0.5-2.0) mmol/L Calcium (8.4-10.2) mg/dL Magnesium (1.6-2.6) mg/dL Total Bilirubin (0.0-1.0) mg/dL Direct Bilirubin (0.0-0.5) mg/dL AST (5-31) U/L ALT (0-31) U/L Alkaline Phosphatase (39-117) U/L Ammonia (13-55) umol/L Total Creatine Kinase (26-140) U/L Troponin I High Sens (<3.5-17.0) ng/L B-Natriuretic Peptide 140 H (<100) pg/mL Total Protein (6.5-8.0) g/dL Albumin (3.5-5.0) g/dL Lipase (8-78) U/L TSH (0.32-4.0) uIU/mL Urine Color Urine Appearance Urine pH (5.0-9.0) Ur Specific [place] (1.005-1.025) Urine Protein (Neg-Trace) mg/dL Urine Glucose (UA) (Negative) mg/dL Urine Ketones (Negative) mg/dL Urine Blood (Negative) Urine Nitrite (Negative) Ur Leukocyte Esterase (Negative) Urine RBC (0-2) /HPF Urine WBC (0-5) /HPF Ur Squamous Epith Cells (0-2) /HPF Urine Bacteria (None Seen) Hyaline Casts (0-2) /LPF Influenza Type A (PCR) (Negative) Influenza Type B (PCR) (Negative) RSV RNA Qual (PCR) (Negative) SARS-CoV-2 RNA (RT-PCR) (Negative) Radiology Impression Discussion of test interpretation with radiology: I have reviewed the radiologist's reading. Radiologist Impression: EXAMINATION: CTA CHEST PE STUDY, CT ABDOMEN AND PELVIS CLINICAL INFORMATION: Leukocytosis, confusion, transaminitis COMPARISON: No pertinent prior studies are available for comparison. TECHNIQUE: Prior to contrast administration, noncontrast localization images were obtained. After the administration of 100 mL of Omnipaque nonionic IV contrast, contiguous thin slice helical images were obtained through the thorax. Following this the examination was continued through the abdomen and then pelvis. Reformatted MIP images in the coronal and sagittal planes as well as thin slice reformatted images of coronal and sagittal planes were obtained at the acquisition workstation. This CT examination was performed using dose optimization techniques as appropriate, variously including the following: *Automated exposure control *Adjustment of mA and/or kV according to patient size (this includes techniques or standardized protocols for targeted exams where dose is matched to indication/reason for exam; i.e. extremities or head) *Use of iterative reconstruction technique DLP: 1496 mGy-cm. FINDINGS: CHEST: The bolus timing on this study was acceptable for visualization of the pulmonary arterial tree. Although degraded by respiratory motion artifact, there are no intraluminal pulmonary arterial filling defects present to suggest central pulmonary embolism. Dependent airspace changes likely reflecting bibasilar atelectasis. No suspicious abnormal pulmonary nodules or masses are appreciated. No significant hilar or mediastinal adenopathy. There is no evidence of pleural effusion or pneumothorax. The heart is normal in size. No evidence of ventricular septal bowing or right heart strain. Vascular calcification within the aorta and coronary vessels. Prominent mitral annular calcification. There is no pericardial effusion or pericardial thickening. ABDOMEN/PELVIS: Liver, Gallbladder and Biliary Tree: The liver is normal in size, shape, and attenuation. Small low-attenuation probable subcapsular cyst in segment 6 of the liver too small to characterize further. No suspicious focal hepatic lesion. Gallbladder surgically absent and mild biliary ductal prominence likely within normal limits for postcholecystectomy state. Pancreas: Unremarkable. Spleen: Unremarkable. Adrenal Glands: Unremarkable. Kidneys and Ureters: The kidneys are normal in size, shape, and attenuation. No hydronephrosis, hydroureter, or calculi seen. No perinephric stranding. Bladder: Bladder is partially decompressed and unremarkable. Likely urethral bulky agent noted. Gastrointestinal Tract: Extensive colonic diverticulosis more so in the sigmoid colon. I do not appreciate any colonic wall thickening or pericolonic inflammatory change to suggest diverticulitis. Normal-appearing appendix in the right lower quadrant. Visualized small bowel unremarkable Abdominal Wall: No significant hernia is appreciated. Lymphovascular Structures: No lymphadenopathy. The aorta is unremarkable. Pelvic Viscera: Incidental simple appearing 2.7 cm left adnexal cyst. Osseous Structures: Extensive multilevel degenerative changes in the spine with vertebroplasty cement at L1 and L2 CT/CT angio chest PE protocol IMPRESSION: 1. No evidence for central pulmonary emboli. Dependent airspace changes likely reflecting atelectasis. 2. No acute intra-abdominal process. Chronic appearing changes as described. 3. VTE: Negative. EXAMINATION: XR CHEST 2 VIEW CLINICAL INFORMATION: Confusion COMPARISON: 01/16/2024 TECHNIQUE: AP and lateral views of the chest obtained. FINDINGS: There are low volumes but the lungs are clear. On the lateral radiograph, the left and right costophrenic sulci appear blunted. The cardiac silhouette is magnified by the AP position. XR/XR chest 2V IMPRESSION: 1. Poor inspiratory effort. 2. Small bilateral pleural fluid or thickening. Discharge Plan Discharge Clinical Impression: Bandemia, Leukocytosis, Transaminitis, Indirect hyperbilirubinemia Patient Disposition: Admitted As Inpatient Print Language: Hungarian
[2024-05-14 12:37] LABS: Hematocrit 36.6 % (37.0-47.0); Hemoglobin 12.6 g/dl (12.0-16.0); Mean Corpuscular HGB Conc 34.4 g/dl (31.0-35.0); Mean Corpuscular Hemoglobin 33.1 pg (27.0-33.0); Mean Corpuscular Volume 96.1 fL (80.0-98.0); Mean Platelet Volume 11.3 fL (9.4-12.3); Platelet Count 217 X10*3/uL (160-400); Red Blood Count 3.81 X10*6/uL (4.20-5.50); Red Cell Distribution Width 13.9 % (11.0-16.0); White Blood Count 16.9 X10*3/uL (4.8-10.8)
[2024-05-14 12:47] LABS: Ammonia 32 umol/L (13-55)
[2024-05-14 12:58] LABS: Alanine Aminotransferase 279 U/L (0-31); Albumin Level 3.6 g/dL (3.5-5.0); Alkaline Phosphatase 126 U/L (39-117); Anion Gap 11 (12-20); Aspartate Amino Transferase 323 U/L (5-31); Bilirubin Total 1.5 mg/dL (0.0-1.0); Blood Urea Nitrogen 30 mg/dL (9-16); Carbon Dioxide 26 mmol/L (22-29); Chloride 106 mmol/L (96-108); Creatinine Clr Calc Pharmacy 72.9; Estimated Glomerular Filt Rate > 60; Glucose Random 120 mg/dL (60-115); Lipase 11 U/L (8-78); Potassium 4.1 mmol/L (3.3-5.1); Sodium 139 mmol/L (135-145); Total Protein 6.8 g/dL (6.5-8.0)
[2024-05-14 13:00] LABS: Band Neutrophils Percent 8 % (3-5); Basophils Abs Manual 0.2 X10*3/uL (0.0-0.2); Basophils Percent Manual 1 % (0-2); Lymphocytes Absolute Manual 0.7 X10*3/uL (1.2-4.9); Lymphocytes Percent Manual 4 % (20-40); Monocytes Absolute Manual 0.3 X10*3/uL (0.1-1.2); Monocytes Percent Manual 2 % (2-11); Neutrophils Absolute Manual 15.7 X10*3/uL (2.0-8.3); Neutrophils Percent Manual 85 % (45-73)
[2024-05-14 13:01] LABS: Platelet Estimate NORMAL (NORMAL); Platelet Morphology Comment NORMAL; RBC Morphology NORMAL; Toxic Vacuolation PRESENT
[2024-05-14 13:20] LABS: TSH reflex Free T4 0.87 uIU/mL (0.32-4.0)
[2024-05-14 14:16] LABS: Influenza A PCR NEGATIVE (Negative); Influenza B PCR NEGATIVE (Negative); Resp Syncy Virus RNA Qual PCR NEGATIVE (Negative); SARS COV2 PCR INHOUSE NEGATIVE (Negative)
[2024-05-14] MEDS: Piperacillin Sodium/Tazobactam 3.375 GM in 0.9 % Sodium Chloride 50 ML IV (14:45)
[2024-05-14] MEDS: 0.9 % Sodium Chloride 1,000 ML 999 ML IV (14:56)
[2024-05-14 14:58] LABS: Lactic Acid 1.5 mmol/L (0.5-2.0)
[2024-05-14 15:01] LABS: Bilirubin Direct 0.6 mg/dL (0.0-0.5)
[2024-05-14 15:11] LABS: Troponin-I High Sensitivity 4.5 ng/L (<3.5-17.0)
[2024-05-14] MEDS: vancomycin/NS 2,000 MG/500 ML PLAST..BAG 250 MG IV (15:44)
[2024-05-14 16:07] LABS: Appearance Urine Clear; Color Urine Dark Yellow; Glucose Urine UA Negative (Negative); Leukocyte Esterase Urine Small (1+) (Negative); Nitrite Urine Negative (Negative); PH 5.5 (5.0-9.0); UMIC TRIGGER UACC YES; Urine Blood Negative (Negative); Urine Ketones Negative (Negative); Urine Protein 30 (1+) mg/dL (Neg-Trace)
[2024-05-14 16:23] LABS: Bacteria Urine None Seen (None Seen); Hyaline Casts Urine 0-2 /LPF (0-2); RBC Urine 0-2 /HPF (0-2); Squamous Epithelial Cell Urine 0-2 /HPF (0-2); UACC Culture Trigger YES; WBC Urine 0-5 /HPF (0-5)
[2024-05-14] MEDS: iohexoL 350 MG/ML 100 ML INFUS..BTL IV (17:46)
[2024-05-14 18:16] LABS: B Type Natriuretic Peptide 140 pg/mL (<100)
--- NOTE | 2024-05-14 19:52 | PC.NURSE ---
this RN resumed care of pt at 1845. nsr on the youth nutritional monitor. alert and oriented to self only. pt states that the year is 1954, that she's at [facility] and that she presents to the ED today because her in 1939. attempted to reorient pt at this time. pt reports that she is having pain in her LE bilaterally since she had surgery this afternoon. this statement is inaccurate. pt currently waiting for scans to be resulted at this time. resting comfortably w/ lights dimmed at this time. no sob/wob noted. respirations even/unlabored. plan of care ongoing. call patel placed within reach.
--- NOTE | 2024-05-14 22:21 | P.HPHOSP_ITS ---
History of Present Illness Date of Service: 05/14/24 Chief Complaint: confusion 84F PMH alzheimers dementia, pafib, htn, hld, tia, carotid stenosis, pvd, presented with confusion. history obtained from ER as patient poor historian and unable to contact son. patient lives with son who brought paitent in for increased confusion, lethargy, hallucinations, was diagnosed with uti on 05/07/24, prescribed macrobid but only filled on 05/13/24. denies fever, chills. in ED very confused, leukocytosis, ua negative. Review of Systems 2 Review of Systems: Yes all other systems are reviewed and are negative [facility] Medical History PAD (peripheral artery disease) Dementia Paroxysmal atrial fibrillation Peripheral neuropathy TIA (transient ischemic attack) Foot drop Carotid artery stenosis Afib Hyperlipidemia Anemia Hypertension Surgical History S/P aortogram with runoff H/O foot surgery History of bilateral knee replacement H/O tubal ligation History of cholecystectomy H/O endarterectomy Social History Household Members: Children and Caregiver Housing: House Do you presently have visiting nurse or other home services: Yes Unable to assess alcohol history related to: Unable to respond Alcohol intake: former Comment: as per previous Patient Tobacco Use Status: Never used Tobacco Advance Directives: Yes Advance Directives on File: Yes Advance Directives Date on File: 01/13/24 service: No Meds Allergies Allergy/AdvReac Type Severity Reaction Status Date / Time gentamicin [GENTAMICIN] Allergy Intermediate SWELLING Verified 05/14/24 12:02 sulfamethoxazole Allergy Intermediate RASH Verified 05/14/24 12:02 [From BACTRIM] trimethoprim [From BACTRIM] Allergy Intermediate RASH Verified 05/14/24 12:02 Active Medications: Current Medications Acetaminophen (Acetaminophen 325 Mg Tablet) 650 mg PO Q6H PRN PRN Reason: Pain, Mild (Pain Scale 1-3), fever or headache Apixaban (Apixaban 5 Mg Tablet) 5 mg PO BID MARKEL Atorvastatin Calcium (Atorvastatin Calcium 10 Mg Tablet) 10 mg PO DAILY MARKEL Calcium Carbonate (Calcium Carbonate 750 Mg Tab.Chew) 750 mg PO Q4H PRN PRN Reason: Heartburn Ceftriaxone Sodium 1 gm/ (Sodium Chloride) 50 mls @ 100 mls/hr IV Q24H MARKEL Sodium Chloride (Ns) 1,000 mls @ 75 mls/hr IVCONT .[id number] MARKEL Magnesium Hydroxide (Milk Of Magnesia 30 Ml Oral.Susp) 30 ml PO DAILY PRN PRN Reason: Constipation Melatonin (Melatonin 3 Mg Tablet) 6 mg PO BEDTIME PRN PRN Reason: Insomnia Memantine (Memantine Hcl 5 Mg Tablet) 5 mg PO BID MARKEL Metoprolol Succinate (Metoprolol Succinate Er 25 Mg Tab.Er.24h) 25 mg PO DAILY MARKEL; Protocol Sodium Chloride (0.9 % Sodium Chloride Flush 3 Ml Syringe) 3 ml IVFLUSH QSHIFT [facility] Home Medications ?Medication ?Instructions ?Recorded ?Confirmed ?Last Taken ?Type apixaban 5 mg tablet (Eliquis) 5 mg PO BID 01/06/24 04/06/24 01/16/24 History atorvastatin 10 mg tablet 10 mg PO BEDTIME 01/06/24 04/06/24 01/05/24 History cholecalciferol (vitamin D3) 25 25 mcg PO DAILY 01/06/24 04/06/24 01/06/24 History mcg (1,000 unit) tablet ferrous sulfate 324 mg (65 mg 324 mg PO DAILY 01/06/24 04/06/24 01/06/24 History iron) tablet,delayed release gabapentin 100 mg capsule 100 mg PO TID 01/06/24 04/06/24 01/06/24 History magnesium oxide 400 mg PO DAILY 01/06/24 01/16/24 01/06/24 History memantine 5 mg tablet 5 mg PO BID 01/06/24 04/06/24 01/06/24 History metoprolol succinate 25 mg 25 mg PO DAILY 01/06/24 04/06/24 01/06/24 History tablet,extended release 24 hr mirabegron 50 mg tablet,extended 50 mg PO DAILY 01/06/24 04/06/24 01/06/24 History release 24 hr (Myrbetriq) multivitamin 1 tab PO DAILY 01/06/24 04/06/24 01/06/24 History acetaminophen 500 mg tablet 1,000 mg PO TID 01/16/24 04/06/24 Unknown History docusate sodium 100 mg tablet 100 mg PO BID 01/16/24 04/06/24 Unknown History oxycodone 5 mg tablet 2.5 mg PO Q6H PRN Pain, 01/16/24 04/06/24 Unknown History Moderate(Pain Scale 4-6) polyethylene glycol 3350 17 17 g PO DAILY 01/16/24 04/06/24 Unknown History gram/dose oral powder sennosides 8.6 mg tablet (senna) 17.2 mg PO BEDTIME 01/16/24 04/06/24 Unknown History amoxicillin 875 mg-potassium 1 tab PO BID 05/14/24 Unknown History clavulanate 125 mg tablet lisinopril 5 mg tablet 5 mg PO DAILY 05/14/24 Unknown History nitrofurantoin 1 cap PO BID 05/14/24 Unknown History monohydrate/macrocrystals 100 mg capsule silver sulfadiazine 1 % topical appl topical BID 05/14/24 Unknown History cream (SSD) Physical Exam 2 Vital Signs and Narrative: Vital Signs: Last Vital Signs Temp 98.5 F 05/14/24 11:58 Pulse 87 05/14/24 20:29 Resp 18 05/14/24 20:29 BP 124/98 H 05/14/24 20:29 Pulse Ox 96 05/14/24 20:29 O2 Del Method Room Air 05/14/24 20:29 BMI result Body Mass Index 35.4 General: AO X 1, agitated, very confused Resp: CTA bilateral, no accessory muscles used CVS: S1,S2,RRR GI: soft, non tender, non distended Results Labs 05/14/24 12:20 05/14/24 12:20 Labs: Laboratory Results - last 24 hr 05/14/24 05/14/24 05/14/24 12:20 14:42 15:47 MCV 96.1 MCH 33.1 H MCHC 34.4 RDW 13.9 Plt Count 217 MPV 11.3 Immature Gran % (Auto) Cancelled Neut % (Auto) Cancelled Lymph % (Auto) Cancelled [place] % (Auto) Cancelled Eos % (Auto) Cancelled Baso % (Auto) Cancelled Lymph # (Auto) Cancelled [place] # (Auto) Cancelled Eos # (Auto) Cancelled Baso # (Auto) Cancelled Abs Immat Gran (auto) Cancelled Absolute Neuts (auto) Cancelled Absolute Nucleated RBC 0.000 Nucleated RBC % (auto) 0.0 Neutrophils % (Manual) 85 H Band Neutrophils % 8 H Lymphocytes % (Manual) 4 L Monocytes % (Manual) 2 Basophils % (Manual) 1 Abs Neuts (Manual) 15.7 H Lymphocytes # (Manual) 0.7 L Monocytes # (Manual) 0.3 Basophils # (Manual) 0.2 Toxic Vacuolation PRESENT Platelet Estimate NORMAL Plt Morphology Comment NORMAL RBC Morphology NORMAL Anion Gap 11 L Estim Creat Clear Calc 72.9 Estimated GFR > 60 Random Glucose 120 H Lactic Acid 1.5 Calcium 10.0 D Magnesium 2.0 Total Bilirubin 1.5 H Direct Bilirubin 0.6 H AST 323 H ALT 279 H Alkaline Phosphatase 126 H Ammonia 32 Total Creatine Kinase 65 Troponin I High Sens 4.5 D B-Natriuretic Peptide Total Protein 6.8 Albumin 3.6 Lipase 11 TSH 0.87 Urine Color Dark Yellow Urine Appearance Clear Urine pH 5.5 Ur Specific [place] 1.020 Urine Protein 30 (1+) H Urine Glucose (UA) Negative Urine Ketones Negative Urine Blood Negative Urine Nitrite Negative Ur Leukocyte Esterase Small (1+) H Urine RBC 0-2 Urine WBC 0-5 Ur Squamous Epith Cells 0-2 Urine Bacteria None Seen Hyaline Casts 0-2 Influenza Type A (PCR) NEGATIVE Influenza Type B (PCR) NEGATIVE RSV RNA Qual (PCR) NEGATIVE SARS-CoV-2 RNA (RT-PCR) NEGATIVE 05/14/24 17:48 MCV MCH MCHC RDW Plt Count MPV Immature Gran % (Auto) Neut % (Auto) Lymph % (Auto) [place] % (Auto) Eos % (Auto) Baso % (Auto) Lymph # (Auto) [place] # (Auto) Eos # (Auto) Baso # (Auto) Abs Immat Gran (auto) Absolute Neuts (auto) Absolute Nucleated RBC Nucleated RBC % (auto) Neutrophils % (Manual) Band Neutrophils % Lymphocytes % (Manual) Monocytes % (Manual) Basophils % (Manual) Abs Neuts (Manual) Lymphocytes # (Manual) Monocytes # (Manual) Basophils # (Manual) Toxic Vacuolation Platelet Estimate Plt Morphology Comment RBC Morphology Anion Gap Estim Creat Clear Calc Estimated GFR Random Glucose Lactic Acid Calcium Magnesium Total Bilirubin Direct Bilirubin AST ALT Alkaline Phosphatase Ammonia Total Creatine Kinase Troponin I High Sens B-Natriuretic Peptide 140 H Total Protein Albumin Lipase TSH Urine Color Urine Appearance Urine pH Ur Specific [place] Urine Protein Urine Glucose (UA) Urine Ketones Urine Blood Urine Nitrite Ur Leukocyte Esterase Urine RBC Urine WBC Ur Squamous Epith Cells Urine Bacteria Hyaline Casts Influenza Type A (PCR) Influenza Type B (PCR) RSV RNA Qual (PCR) SARS-CoV-2 RNA (RT-PCR) Imaging Radiologist's Impressions: Impressions Chest X-Ray 05/14/24 12:51 IMPRESSION: 1. Poor inspiratory effort. 2. Small bilateral pleural fluid or thickening. Abdomen/Pelvis CT 05/14/24 17:55 IMPRESSION: 1. No evidence for central pulmonary emboli. Dependent airspace changes likely reflecting atelectasis. 2. No acute intra-abdominal process. Chronic appearing changes as described. 3. VTE: Negative. Chest CTA 05/14/24 17:55 IMPRESSION: 1. No evidence for central pulmonary emboli. Dependent airspace changes likely reflecting atelectasis. 2. No acute intra-abdominal process. Chronic appearing changes as described. 3. VTE: Negative. Assessment and Plan (1) Transaminitis: Status: Acute Plan 84F PMH alzheimers dementia, pafib, htn, hld, tia, carotid stenosis, pvd, presented with confusion acute metabolic encephalopathy due to UTI negative ua possibly due to partial treatment with macrobid will continue with rocephin, follow up cultures alzheimers dementia with behavioural distrubance and delusions will request psych eval pafib toprol, eliquis history of tia, pvd eliquis acute on chronic transaminitis ct abd unremarkable, will hold statin monitor htn lisinopirl, toprol dvt prophylaxis - eliquis full code for now unable to contact son to confirm code status and medrec patient with infection causing encephalopathy and behavioural abnormalities, will need expert consultation, iv abx, and following up of cultures, expected to require atleast 2 midnights Quality Stroke Does the patient have a stroke diagnosis?: No VTE Prior VTE?: No VTE Risk Level:: Medical - moderate - high VTE Device Contraindication: Treatment Not Indicated VTE Drug Contraindication: N/A - Med Ordered
[2024-05-14] MEDS: 0.9 % Sodium Chloride 1,000 ML 75 ML IVCONT (22:56)
--- NOTE | 2024-05-14 22:56 | PC.NURSE ---
pt incontinent of urine. kevin care performed. new pads applied. purewick now in place. IVF infusing per provider order. pt waiting for bed assignment at this time. plan of care ongoing.
[2024-05-15] VITALS: BP 107/45; PULSE 80; RESP 16; TEMP 36.8; O2SAT 95
[2024-05-15] MEDS: Melatonin 3 MG TABLET 6 MG PO ×2 (02:30→21:07)
[2024-05-15] MEDS: Acetaminophen 325 MG TABLET 650 MG PO (02:30)
--- NOTE | 2024-05-15 03:11 | PC.NURSE ---
Pt c/o pain to BLE and requesting medication for sleep MD made aware and informed t/w to give tylenol. Pt given Tylenol and melatonin to help her sleep.
[2024-05-15 05:52] LABS: Hematocrit 32.7 % (37.0-47.0); Hemoglobin 11.3 g/dl (12.0-16.0); Mean Corpuscular HGB Conc 34.6 g/dl (31.0-35.0); Mean Corpuscular Hemoglobin 32.8 pg (27.0-33.0); Mean Corpuscular Volume 94.8 fL (80.0-98.0); Mean Platelet Volume 11.4 fL (9.4-12.3); Platelet Count 185 X10*3/uL (160-400); Red Blood Count 3.45 X10*6/uL (4.20-5.50); Red Cell Distribution Width 13.7 % (11.0-16.0); White Blood Count 9.1 X10*3/uL (4.8-10.8)
[2024-05-15 06:01] VITALS: BP 129/40; PULSE 88; RESP 18; TEMP 37.1; O2SAT 95
--- NOTE | 2024-05-15 06:05 | PC.NURSE ---
Pt A&O to self, tearful, states I need my purse to see how much money I have left, I need to buy for my weeding . Pt reassured. IV fluids running per MAR.
[2024-05-15 06:20] LABS: Alanine Aminotransferase 179 U/L (0-31); Albumin Level 3.2 g/dL (3.5-5.0); Alkaline Phosphatase 125 U/L (39-117); Anion Gap 10 (12-20); Aspartate Amino Transferase 110 U/L (5-31); Bilirubin Direct 0.4 mg/dL (0.0-0.5); Bilirubin Total 1.1 mg/dL (0.0-1.0); Blood Urea Nitrogen 27 mg/dL (9-16); Calcium 9.2 mg/dL (8.4-10.2); Carbon Dioxide 24 mmol/L (22-29); Chloride 111 mmol/L (96-108); Creatinine Clr Calc Pharmacy 78.9; Estimated Glomerular Filt Rate > 60; Glucose Fasting 108 mg/dL (60-99); Magnesium 1.9 mg/dL (1.6-2.6); Potassium 3.5 mmol/L (3.3-5.1); Sodium 141 mmol/L (135-145); Total Protein 5.9 g/dL (6.5-8.0)
--- NOTE | 2024-05-15 09:02 | P.PNIM_ITS ---
Subjective Subjective Date of Service: 05/15/24 Interval History: follow-up on metabolic encephalopathy due to UTI, she remained confused Physical Exam 2 Vital Signs: Vital Signs: Last Vital Signs Temp 98.8 F 05/15/24 06:01 Pulse 88 05/15/24 06:01 Resp 18 05/15/24 06:01 BP 129/40 L 05/15/24 06:01 Pulse Ox 95 05/15/24 06:01 O2 Del Method Room Air 05/15/24 06:01 BMI result Body Mass Index 35.4 General: Alert not oriented, no acute distress Resp: CTA bilateral CVS: S1,S2,RRR GI: +BS, NT, no distention Skin: No rash Neuro: motor grossly intact Psych: appropriate affect Objective Data Active Medications Acetaminophen (Acetaminophen 325 Mg Tablet) 650 mg PO Q6H PRN PRN Reason: Pain, Mild (Pain Scale 1-3), fever or headache Last Admin: 05/15/24 02:30 Dose: 650 mg Documented By: IVETTE Apixaban (Apixaban 5 Mg Tablet) 5 mg PO BID MARKEL Calcium Carbonate (Calcium Carbonate 750 Mg Tab.Chew) 750 mg PO Q4H PRN PRN Reason: Heartburn Ceftriaxone Sodium 1 gm/ (Sodium Chloride) 50 mls @ 100 mls/hr IV Q24H MARKEL Sodium Chloride (Ns) 1,000 mls @ 75 mls/hr IVCONT .[id number] [facility] Last Admin: 05/14/24 22:56 Dose: 75 mls/hr Documented By: JAVIER Magnesium Hydroxide (Milk Of Magnesia 30 Ml Oral.Susp) 30 ml PO DAILY PRN PRN Reason: Constipation Melatonin (Melatonin 3 Mg Tablet) 6 mg PO BEDTIME PRN PRN Reason: Insomnia Last Admin: 05/15/24 02:30 Dose: 6 mg Documented By: IVETTE Memantine (Memantine Hcl 5 Mg Tablet) 5 mg PO BID [facility] Metoprolol Succinate (Metoprolol Succinate Er 25 Mg Tab.Er.24h) 25 mg PO DAILY [facility]; Protocol Sodium Chloride (0.9 % Sodium Chloride Flush 3 Ml Syringe) 3 ml IVFLUSH QSHIFT [facility] Last Admin: 05/14/24 23:15 Dose: Not Given Documented By: JAVIER Non-Admin Reason: IV Running Labs 05/15/24 05:31 05/15/24 05:31 Labs: Laboratory Results - last 24 hr 05/14/24 05/14/24 05/14/24 12:20 14:42 15:47 MCV 96.1 MCH 33.1 H MCHC 34.4 RDW 13.9 Plt Count 217 MPV 11.3 Immature Gran % (Auto) Cancelled Neut % (Auto) Cancelled Lymph % (Auto) Cancelled [place] % (Auto) Cancelled Eos % (Auto) Cancelled Baso % (Auto) Cancelled Lymph # (Auto) Cancelled [place] # (Auto) Cancelled Eos # (Auto) Cancelled Baso # (Auto) Cancelled Abs Immat Gran (auto) Cancelled Absolute Neuts (auto) Cancelled Absolute Nucleated RBC 0.000 Nucleated RBC % (auto) 0.0 Neutrophils % (Manual) 85 H Band Neutrophils % 8 H Lymphocytes % (Manual) 4 L Monocytes % (Manual) 2 Basophils % (Manual) 1 Abs Neuts (Manual) 15.7 H Lymphocytes # (Manual) 0.7 L Monocytes # (Manual) 0.3 Basophils # (Manual) 0.2 Toxic Vacuolation PRESENT Platelet Estimate NORMAL Plt Morphology Comment NORMAL RBC Morphology NORMAL Anion Gap 11 L Estim Creat Clear Calc 72.9 Estimated GFR > 60 Random Glucose 120 H Fasting Glucose Lactic Acid 1.5 Calcium 10.0 D Magnesium 2.0 Total Bilirubin 1.5 H Direct Bilirubin 0.6 H AST 323 H ALT 279 H Alkaline Phosphatase 126 H Ammonia 32 Total Creatine Kinase 65 Troponin I High Sens 4.5 D B-Natriuretic Peptide Total Protein 6.8 Albumin 3.6 Lipase 11 TSH 0.87 Urine Color Dark Yellow Urine Appearance Clear Urine pH 5.5 Ur Specific [place] 1.020 Urine Protein 30 (1+) H Urine Glucose (UA) Negative Urine Ketones Negative Urine Blood Negative Urine Nitrite Negative Ur Leukocyte Esterase Small (1+) H Urine RBC 0-2 Urine WBC 0-5 Ur Squamous Epith Cells 0-2 Urine Bacteria None Seen Hyaline Casts 0-2 Influenza Type A (PCR) NEGATIVE Influenza Type B (PCR) NEGATIVE RSV RNA Qual (PCR) NEGATIVE SARS-CoV-2 RNA (RT-PCR) NEGATIVE 05/14/24 05/15/24 17:48 05:31 MCV 94.8 MCH 32.8 MCHC 34.6 RDW 13.7 Plt Count 185 MPV 11.4 Immature Gran % (Auto) Neut % (Auto) Lymph % (Auto) [place] % (Auto) Eos % (Auto) Baso % (Auto) Lymph # (Auto) [place] # (Auto) Eos # (Auto) Baso # (Auto) Abs Immat Gran (auto) Absolute Neuts (auto) Absolute Nucleated RBC 0.000 Nucleated RBC % (auto) 0.0 Neutrophils % (Manual) Band Neutrophils % Lymphocytes % (Manual) Monocytes % (Manual) Basophils % (Manual) Abs Neuts (Manual) Lymphocytes # (Manual) Monocytes # (Manual) Basophils # (Manual) Toxic Vacuolation Platelet Estimate Plt Morphology Comment RBC Morphology Anion Gap 10 L Estim Creat Clear Calc 78.9 Estimated GFR > 60 Random Glucose Fasting Glucose 108 H Lactic Acid Calcium 9.2 D Magnesium 1.9 Total Bilirubin 1.1 H Direct Bilirubin 0.4 AST 110 H ALT 179 H Alkaline Phosphatase 125 H Ammonia Total Creatine Kinase Troponin I High Sens B-Natriuretic Peptide 140 H Total Protein 5.9 L Albumin 3.2 L Lipase TSH Urine Color Urine Appearance Urine pH Ur Specific [place] Urine Protein Urine Glucose (UA) Urine Ketones Urine Blood Urine Nitrite Ur Leukocyte Esterase Urine RBC Urine WBC Ur Squamous Epith Cells Urine Bacteria Hyaline Casts Influenza Type A (PCR) Influenza Type B (PCR) RSV RNA Qual (PCR) SARS-CoV-2 RNA (RT-PCR) Assessment and Plan (1) Metabolic encephalopathy: Status: Acute Plan 84F H alzheimers dementia, pafib, htn, hld, tia, carotid stenosis, pvd, presented with confusion acute metabolic encephalopathy due to UTI, she remains fairly confused negative ua possibly due to partial treatment with macrobid will continue with rocephin, follow up cultures alzheimers dementia with behavioural distrubance and delusions Psych consult pafib toprol, eliquis history of tia, pvd eliquis acute on chronic transaminitis, trending down ct abd unremarkable, will hold statin monitor htn lisinopirl, toprol dvt prophylaxis - eliquis full code for now unable to contact son to confirm code status and medrec need for inpt: patient with infection causing encephalopathy and behavioural abnormalities, will need expert consultation, iv abx, and following up of cultures, Quality Stroke Does the patient have a stroke diagnosis?: No VTE Prior VTE?: No VTE Risk Level:: Medical - moderate - high VTE Device Contraindication: Treatment Not Indicated VTE Drug Contraindication: N/A - Med Ordered
[2024-05-15 09:35] VITALS: BP 111/51; PULSE 85; RESP 14; TEMP 37.2; O2SAT 94
[2024-05-15 10:12] VITALS: BP 121/60; PULSE 80; RESP 12; TEMP 36.7; O2SAT 96
[2024-05-15] MEDS: cefTRIAXone sodium 1 GM in 0.9 % Sodium Chloride 50 ML IV (10:46)
[2024-05-15] MEDS: Metoprolol Succinate ER 25 MG TAB.ER.24H PO (10:50)
[2024-05-15] MEDS: Memantine HCl 5 MG TABLET PO ×2 (10:50→21:08)
[2024-05-15] MEDS: Apixaban 5 MG TABLET PO ×2 (10:50→21:08)
--- NOTE | 2024-05-15 12:43 | PHA.MEDREC ---
Addendum entered by Thuan Flores RP 05/15/24 13:40: MED REC DOUBLE CHECKED BY [facility] Original Note: Pharmacy Consult ? Medication Reconciliation Pharmacy has completed the medication reconciliation.Confirmed medications with patient amandeep Choi over the phone. He was able to confirm her Eliquis 5mg BID and she took it yesterday morning at 8:30 am and was not able to take the second dose.
[2024-05-15] MEDS: 0.9 % Sodium Chloride 1,000 ML 75 ML IVCONT (13:24)
--- NOTE | 2024-05-15 13:24 | MHC.CM.PN ---
PT LIVES WITH SON CHUCKIE LEONOR DCD IN MARCH FROM [facility] PT ACTIVE AMTKSIS
--- NOTE | 2024-05-15 13:34 | MHC.CM.PN ---
PT HAS 24 HR PRIVATE PAY HELP AT HOME AND AMEYDYSIS ,[facility] SON HAS A HANDICAPP [facility] AND WILL TRANSPORT PT HOME
[2024-05-15] MEDS: Gabapentin 100 MG CAPSULE PO ×2 (15:54→21:07)
[2024-05-15 16:00] VITALS: BP 108/56; PULSE 82; RESP 18; TEMP 36.1; O2SAT 96
[2024-05-15] MEDS: LORazepam 2 MG/ML VIAL 0.5 MG IVPUSH (16:01)
[2024-05-15] MEDS: 0.9 % Sodium Chloride Flush 3 ML SYRINGE IVFLUSH (16:03)
[2024-05-15 19:27] VITALS: BP 109/52; PULSE 86; RESP 18; TEMP 36.8; O2SAT 95
[2024-05-15] MEDS: Sennosides 8.6 MG TABLET PO (21:08)
[2024-05-15] MEDS: Atorvastatin Calcium 10 MG TABLET PO (21:08)
[2024-05-15] MEDS: Docusate Sodium 100 MG CAPSULE PO (21:08)
[2024-05-16] MEDS: 0.9 % Sodium Chloride 1,000 ML 75 ML IVCONT (02:39)
[2024-05-16 04:00] VITALS: BP 126/61; PULSE 76; RESP 18; TEMP 36.7; O2SAT 96
--- NOTE | 2024-05-16 05:46 | PC.NURSE ---
Dressing to left heel changed, used Dakin solution. Wet to dry ,covered with foam.
[2024-05-16 07:02] LABS: Hematocrit 29.4 % (37.0-47.0); Hemoglobin 9.8 g/dl (12.0-16.0); Mean Corpuscular HGB Conc 33.3 g/dl (31.0-35.0); Mean Corpuscular Hemoglobin 32.5 pg (27.0-33.0); Mean Corpuscular Volume 97.4 fL (80.0-98.0); Platelet Count 177 X10*3/uL (160-400); Red Blood Count 3.02 X10*6/uL (4.20-5.50); Red Cell Distribution Width 13.9 % (11.0-16.0); White Blood Count 4.8 X10*3/uL (4.8-10.8)
[2024-05-16 07:22] LABS: Anion Gap 10 (12-20); Blood Urea Nitrogen 23 mg/dL (9-16); Carbon Dioxide 23 mmol/L (22-29); Chloride 114 mmol/L (96-108); Creatinine Clr Calc Pharmacy 92.6; Estimated Glomerular Filt Rate > 60; Glucose Random 94 mg/dL (60-115); Potassium 3.5 mmol/L (3.3-5.1); Sodium 143 mmol/L (135-145)
[2024-05-16 07:33] VITALS: BP 134/67; PULSE 65; RESP 16; TEMP 36.5; O2SAT 96
--- NOTE | 2024-05-16 08:31 | HO.PM.IMPN ---
Subjective Subjective Date of Service: 05/16/24 Interval History: follow-up on metabolic encephalopathy due to UTI, at baseline confusion Physical Exam Vital Signs: Vital Signs: Last Vital Signs Temp 97.7 F 05/16/24 07:33 Pulse 65 05/16/24 07:33 Resp 16 05/16/24 07:33 BP 134/67 05/16/24 07:33 Pulse Ox 96 05/16/24 07:33 O2 Del Method Room Air 05/16/24 07:33 BMI result Body Mass Index 35.4 General: Alert not oriented, no acute distress Resp: CTA bilateral CVS: S1,S2,RRR GI: +BS, NT, no distention Skin: No rash Neuro: motor grossly intact Psych: appropriate affect Objective Data Active Medications Acetaminophen (Acetaminophen 325 Mg Tablet) 650 mg PO Q6H PRN PRN Reason: Pain, Mild (Pain Scale 1-3), fever or headache Last Admin: 05/15/24 02:30 Dose: 650 mg Documented By: IVETTE Apixaban (Apixaban 5 Mg Tablet) 5 mg PO BID [facility] Last Admin: 05/15/24 21:08 Dose: 5 mg Documented By: IRIS Atorvastatin Calcium (Atorvastatin Calcium 10 Mg Tablet) 10 mg PO BEDTIME [facility] Last Admin: 05/15/24 21:08 Dose: 10 mg Documented By: IRIS Calcium Carbonate (Calcium Carbonate 750 Mg Tab.Chew) 750 mg PO Q4H PRN PRN Reason: Heartburn Docusate Sodium (Docusate Sodium 100 Mg Capsule) 100 mg PO BID [facility] Last Admin: 05/15/24 21:08 Dose: 100 mg Documented By: IRIS Ferrous Sulfate (Ferrous Sulfate 324 Mg Tablet.Dr) 324 mg PO DAILY [facility] Gabapentin (Gabapentin 100 Mg Capsule) 100 mg PO TID [facility] Last Admin: 05/15/24 21:07 Dose: 100 mg Documented By: IRIS Ceftriaxone Sodium 1 gm/ (Sodium Chloride) 50 mls @ 100 mls/hr IV Q24H [facility] Last Infusion: 05/15/24 11:34 Dose: Infused Documented By: ALFRED Lisinopril (Lisinopril 5 Mg Tablet) 5 mg PO DAILY [facility]; Protocol Lorazepam (Lorazepam 2 Mg/Ml Vial) 0.5 mg IVPUSH ONCE PRN PRN Reason: anxiety/restlessness Last Admin: 05/15/24 16:01 Dose: 0.5 mg Documented By: ALFRED Magnesium Hydroxide (Milk Of Magnesia 30 Ml Oral.Susp) 30 ml PO DAILY PRN PRN Reason: Constipation Melatonin (Melatonin 3 Mg Tablet) 6 mg PO BEDTIME PRN PRN Reason: Insomnia Last Admin: 05/15/24 21:07 Dose: 6 mg Documented By: IRIS Memantine (Memantine Hcl 5 Mg Tablet) 5 mg PO BID [facility] Last Admin: 05/15/24 21:08 Dose: 5 mg Documented By: IRIS Metoprolol Succinate (Metoprolol Succinate Er 25 Mg Tab.Er.24h) 25 mg PO DAILY [facility]; Protocol Last Admin: 05/15/24 10:50 Dose: 25 mg Documented By: ALFRED Metoprolol Succinate (Metoprolol Succinate Er 25 Mg Tab.Er.24h) 25 mg PO DAILY [facility]; Protocol Mirabegron (Mirabegron 50 Mg Tab.Er.24h) 50 mg PO DAILY [facility] Multivitamins/Vitamin C (Multivitamin Tablet) 1 tab PO DAILY [facility] Senna (Sennosides 8.6 Mg Tablet) 8.6 mg PO BEDTIME [facility] Last Admin: 05/15/24 21:08 Dose: 8.6 mg Documented By: IRIS Silver Sulfadiazine (Silver Sulfadiazine 1 % Cream 20 Gm Tube) 1 appl TOPICAL BID PRN PRN Reason: Rash Sodium Chloride (0.9 % Sodium Chloride Flush 3 Ml Syringe) 3 ml IVFLUSH QSHIFT [facility] Last Admin: 05/16/24 01:38 Dose: Not Given Documented By: IRIS Non-Admin Reason: IV Running Sodium Hypochlorite (Sodium Hypochlorite 0.25% 473 Ml Solution) 1 appl TOPICAL DAILY [facility] Last Admin: 05/15/24 21:08 Dose: 1 appl Documented By: IRIS Vitamin D (Cholecalciferol (Vitamin D3) 25 Mcg Tablet) 25 mcg PO DAILY [facility] Labs 05/16/24 05:39 05/16/24 05:39 Labs: Laboratory Results - last 24 hr 05/16/24 05:39 MCV 97.4 MCH 32.5 MCHC 33.3 RDW 13.9 Plt Count 177 MPV 12.0 Absolute Nucleated RBC 0.000 Nucleated RBC % (auto) 0.0 Anion Gap 10 L Estim Creat Clear Calc 92.6 Estimated GFR > 60 Random Glucose 94 Calcium 9.0 Microbiology Microbiology Results: Microbiology 05/14/24 14:42 Blood Culture - Preliminary Blood - Venous No growth after 24 hours. 05/14/24 14:25 Blood Culture - Preliminary Blood - Venous No growth after 24 hours. 05/14/24 15:44 Urine Culture - Preliminary Urine Catheterized - Straight Catheter No growth to date. Assessment and Plan (1) Metabolic encephalopathy: Status: Acute Plan 84F PMH alzheimers dementia, pafib, htn, hld, tia, carotid stenosis, pvd, presented with confusion acute metabolic encephalopathy due to UTI, encephalopathy resolved at baseline negative ua possibly due to partial treatment with macrobid, culture negative will continue with rocephin, and chenage to Ceftin at discharge,follow up cultures alzheimers dementia with behavioural distrubance and delusions Psych consult pafib toprol, eliquis history of tia, pvd eliquis acute on chronic transaminitis, trending down ct abd unremarkable, will hold statin monitor htn lisinopirl, toprol dvt prophylaxis - eliquis full code for now unable to contact son to confirm code status and medrec need for inpt: encephalopathy d/t uti, Quality Stroke Does the patient have a stroke diagnosis?: No VTE Prior VTE?: No VTE Risk Level:: Medical - moderate - high VTE Device Contraindication: Treatment Not Indicated VTE Drug Contraindication: N/A - Med Ordered
[2024-05-16 09:19] LABS: Alanine Aminotransferase 108 U/L (0-31); Alkaline Phosphatase 103 U/L (39-117); Aspartate Amino Transferase 44 U/L (5-31); Bilirubin Direct 0.2 mg/dL (0.0-0.5); Bilirubin Total 0.4 mg/dL (0.0-1.0); Total Protein 5.7 g/dL (6.5-8.0)
[2024-05-16] MEDS: Memantine HCl 5 MG TABLET PO ×2 (12:22→19:58)
[2024-05-16] MEDS: lisinopriL 5 MG TABLET PO (12:23)
[2024-05-16] MEDS: Apixaban 5 MG TABLET PO ×2 (12:23→19:58)
[2024-05-16] MEDS: Docusate Sodium 100 MG CAPSULE PO ×2 (12:23→19:57)
[2024-05-16] MEDS: Metoprolol Succinate ER 25 MG TAB.ER.24H PO (12:23)
[2024-05-16] MEDS: Multivitamin TABLET 1 TAB PO (12:23)
[2024-05-16] MEDS: Gabapentin 100 MG CAPSULE PO ×3 (12:23→19:57)
[2024-05-16] MEDS: Cholecalciferol (Vitamin D3) 25 MCG TABLET PO (12:23)
[2024-05-16] MEDS: Ferrous Sulfate 324 MG TABLET.DR PO (12:23)
[2024-05-16] MEDS: Mirabegron 50 MG TAB.ER.24H PO (12:23)
[2024-05-16] MEDS: 0.9 % Sodium Chloride Flush 3 ML SYRINGE IVFLUSH ×2 (12:26→15:20)
[2024-05-16] MEDS: cefTRIAXone sodium 1 GM in 0.9 % Sodium Chloride 50 ML IV (13:00)
[2024-05-16 15:30] VITALS: BP 139/64; PULSE 72; RESP 16; TEMP 36.5
[2024-05-16 18:58] VITALS: BP 107/63; PULSE 82; RESP 16; TEMP 36.6; O2SAT 95
[2024-05-16] MEDS: Sennosides 8.6 MG TABLET PO (19:57)
[2024-05-16] MEDS: Melatonin 3 MG TABLET 6 MG PO (19:57)
[2024-05-16] MEDS: Atorvastatin Calcium 10 MG TABLET PO (19:57)
[2024-05-17 04:00] VITALS: BP 128/61; PULSE 66; RESP 14; TEMP 36; O2SAT 96
[2024-05-17 07:34] VITALS: BP 162/70; PULSE 66; RESP 16; TEMP 36.4; O2SAT 97
[2024-05-17] MEDS: Gabapentin 100 MG CAPSULE PO ×3 (08:45→20:37)
[2024-05-17] MEDS: Ferrous Sulfate 324 MG TABLET.DR PO (08:45)
[2024-05-17] MEDS: Metoprolol Succinate ER 25 MG TAB.ER.24H PO (08:45)
[2024-05-17] MEDS: Cholecalciferol (Vitamin D3) 25 MCG TABLET PO (08:45)
[2024-05-17] MEDS: lisinopriL 5 MG TABLET PO (08:45)
[2024-05-17] MEDS: Mirabegron 50 MG TAB.ER.24H PO (08:45)
[2024-05-17] MEDS: Multivitamin TABLET 1 TAB PO (08:45)
[2024-05-17] MEDS: Apixaban 5 MG TABLET PO ×2 (08:45→20:37)
[2024-05-17] MEDS: Docusate Sodium 100 MG CAPSULE PO ×2 (08:45→20:37)
[2024-05-17] MEDS: 0.9 % Sodium Chloride Flush 3 ML SYRINGE IVFLUSH ×2 (08:45→14:37)
[2024-05-17] MEDS: Memantine HCl 5 MG TABLET PO ×2 (08:45→20:37)
[2024-05-17 09:03] LABS: Hematocrit 37.4 % (37.0-47.0); Hemoglobin 12.6 g/dl (12.0-16.0); Mean Corpuscular HGB Conc 33.7 g/dl (31.0-35.0); Mean Corpuscular Hemoglobin 32.8 pg (27.0-33.0); Mean Corpuscular Volume 97.4 fL (80.0-98.0); Mean Platelet Volume 12.5 fL (9.4-12.3); Platelet Count 121 X10*3/uL (160-400); Red Blood Count 3.84 X10*6/uL (4.20-5.50); Red Cell Distribution Width 13.7 % (11.0-16.0); White Blood Count 4.4 X10*3/uL (4.8-10.8)
[2024-05-17 09:21] LABS: Alanine Aminotransferase 83 U/L (0-31); Albumin Level 3.3 g/dL (3.5-5.0); Alkaline Phosphatase 111 U/L (39-117); Anion Gap 14 (12-20); Aspartate Amino Transferase 24 U/L (5-31); Bilirubin Total 0.4 mg/dL (0.0-1.0); Blood Urea Nitrogen 15 mg/dL (9-16); Calcium 9.7 mg/dL (8.4-10.2); Carbon Dioxide 21 mmol/L (22-29); Chloride 111 mmol/L (96-108); Creatinine Clr Calc Pharmacy 85.9; Estimated Glomerular Filt Rate > 60; Glucose Random 88 mg/dL (60-115); Iron 77 mcg/dL (30-160); Lactate Dehydrogenase 164 U/L (122-220); Percent Iron Saturation 46 % (15-50); Potassium 3.5 mmol/L (3.3-5.1); Sodium 142 mmol/L (135-145); Total Iron Binding Capacity 168 mcg/dL (228-428); Total Protein 6.5 g/dL (6.5-8.0); Unsaturated Iron Binding 91 ug/dL
[2024-05-17 09:55] LABS: Folate 13.2 ng/mL (> or = 4.0); Vitamin B12 535 pg/mL (200-900)
[2024-05-17 10:59] LABS: Immature Retic Fraction 15.2 % (3.0-15.9); Retic HGB Equivalent 33.9 pg (30.0-35.0); Reticulocyte Percent 2.3 % (0.5-1.8); Reticulocytes Absolute 0.087 X10*6/uL (0.026-0.095)
[2024-05-17] MEDS: cefTRIAXone sodium 1 GM in 0.9 % Sodium Chloride 50 ML IV (11:15)
--- NOTE | 2024-05-17 12:39 | P.PNIM_ITS ---
Subjective Subjective Date of Service: 05/17/24 Interval History: confused but no complaints Review of Systems Review of Systems: Yes all other systems are reviewed and are negative Physical Exam 2 Vital Signs: Vital Signs: Last Vital Signs Temp 97.6 F 05/17/24 07:34 Pulse 66 05/17/24 07:34 Resp 16 05/17/24 07:34 BP 162/70 H 05/17/24 07:34 Pulse Ox 97 05/17/24 07:34 O2 Del Method Room Air 05/17/24 07:34 BMI result Body Mass Index 35.4 Gen: in no acute distress HEENT: sclera anicteric, moist mucus membranes Neck: supple Lungs: clear to auscultation bilaterally Heart: regular rate and rhythm, no murmurs Abd: soft, non-tender, non-distended Ext: no edema Skin: warm/well-perfused Neuro: alert and oriented to self/place but not day/year Psych: impaired insight Objective Data Active Medications Acetaminophen (Acetaminophen 325 Mg Tablet) 650 mg PO Q6H PRN PRN Reason: Pain, Mild (Pain Scale 1-3), fever or headache Last Admin: 05/15/24 02:30 Dose: 650 mg Documented By: IVETTE Apixaban (Apixaban 5 Mg Tablet) 5 mg PO BID [facility] Last Admin: 05/17/24 08:45 Dose: 5 mg Documented By: BA Atorvastatin Calcium (Atorvastatin Calcium 10 Mg Tablet) 10 mg PO BEDTIME [facility] Last Admin: 05/16/24 19:57 Dose: 10 mg Documented By: JEANNE Benzocaine (Throat Lozenge, Medicated Lozenge) 1 lozenge MUCOUS MEM Q2H PRN PRN Reason: Sore Throat Calcium Carbonate (Calcium Carbonate 750 Mg Tab.Chew) 750 mg PO Q4H PRN PRN Reason: Heartburn Docusate Sodium (Docusate Sodium 100 Mg Capsule) 100 mg PO BID [facility] Last Admin: 05/17/24 08:45 Dose: 100 mg Documented By: BA Ferrous Sulfate (Ferrous Sulfate 324 Mg Tablet.) 324 mg PO DAILY [facility] Last Admin: 05/17/24 08:45 Dose: 324 mg Documented By: BA Gabapentin (Gabapentin 100 Mg Capsule) 100 mg PO TID [facility] Last Admin: 05/17/24 08:45 Dose: 100 mg Documented By: BA Ceftriaxone Sodium 1 gm/ (Sodium Chloride) 50 mls @ 100 mls/hr IV Q24H [facility] Last Infusion: 05/17/24 12:04 Dose: Infused Documented By: BA Lisinopril (Lisinopril 5 Mg Tablet) 5 mg PO DAILY [facility]; Protocol Last Admin: 05/17/24 08:45 Dose: 5 mg Documented By: BA Lorazepam (Lorazepam 2 Mg/Ml Vial) 0.5 mg IVPUSH ONCE PRN PRN Reason: anxiety/restlessness Last Admin: 05/15/24 16:01 Dose: 0.5 mg Documented By: ALFRED Magnesium Hydroxide (Milk Of Magnesia 30 Ml Oral.Susp) 30 ml PO DAILY PRN PRN Reason: Constipation Melatonin (Melatonin 3 Mg Tablet) 6 mg PO BEDTIME PRN PRN Reason: Insomnia Last Admin: 05/16/24 19:57 Dose: 6 mg Documented By: JEANNE Memantine (Memantine Hcl 5 Mg Tablet) 5 mg PO BID [facility] Last Admin: 05/17/24 08:45 Dose: 5 mg Documented By: BA Metoprolol Succinate (Metoprolol Succinate Er 25 Mg Tab.Er.24h) 25 mg PO DAILY [facility]; Protocol Last Admin: 05/17/24 08:45 Dose: 25 mg Documented By: BA Mirabegron (Mirabegron 50 Mg Tab.Er.24h) 50 mg PO DAILY [facility] Last Admin: 05/17/24 08:45 Dose: 50 mg Documented By: BA Multivitamins/Vitamin C (Multivitamin Tablet) 1 tab PO DAILY [facility] Last Admin: 05/17/24 08:45 Dose: 1 tab Documented By: BA Senna (Sennosides 8.6 Mg Tablet) 8.6 mg PO BEDTIME [facility] Last Admin: 05/16/24 19:57 Dose: 8.6 mg Documented By: JEANNE Silver Sulfadiazine (Silver Sulfadiazine 1 % Cream 20 Gm Tube) 1 appl TOPICAL BID PRN PRN Reason: Rash Sodium Chloride (0.9 % Sodium Chloride Flush 3 Ml Syringe) 3 ml IVFLUSH QSHIFT [facility] Last Admin: 05/17/24 08:45 Dose: 3 ml Documented By: BA Sodium Hypochlorite (Sodium Hypochlorite 0.25% 473 Ml Solution) 1 appl TOPICAL DAILY [facility] Last Admin: 05/17/24 08:47 Dose: Not Given Documented By: BA Non-Admin Reason: Patient Refused Vitamin D (Cholecalciferol (Vitamin D3) 25 Mcg Tablet) 25 mcg PO DAILY [facility] Last Admin: 05/17/24 08:45 Dose: 25 mcg Documented By: BA Labs 05/17/24 08:49 05/17/24 08:49 Labs: Laboratory Results - last 24 hr 05/17/24 08:49 MCV 97.4 MCH 32.8 MCHC 33.7 RDW 13.7 Plt Count 121 L D MPV 12.5 H Absolute Nucleated RBC 0.000 Nucleated RBC % (auto) 0.0 Absolute Retic 0.087 Percent Retic 2.3 H Immature Retic Fraction 15.2 Retic Hgb Equivalent 33.9 Anion Gap 14 Estim Creat Clear Calc 85.9 Estimated GFR > 60 Random Glucose 88 Calcium 9.7 D Iron 77 TIBC 168 L % Saturation 46 Unsat Iron Binding 91 Total Bilirubin 0.4 AST 24 ALT 83 H Alkaline Phosphatase 111 Lactate Dehydrogenase 164 Total Protein 6.5 Albumin 3.3 L Vitamin B12 535 Folate 13.2 Microbiology Microbiology Results: Microbiology 05/14/24 15:44 Urine Culture - Final Urine Catheterized - Straight Catheter No growth. 05/14/24 14:42 Blood Culture - Preliminary Blood - Venous No growth after 48 hours. 05/14/24 14:25 Blood Culture - Preliminary Blood - Venous No growth after 48 hours. Assessment and Plan (1) Metabolic encephalopathy: Status: Acute Plan d4 84yo F with Alzheimers dementia, pAF, HTN, HLD, carotid stenosis, hx TIA, PVD presenting with confusion, admitted for encephalopathy acute metabolic encephalopathy due to UTI - resolved; negative UA likely due to partial treatment with nitrofurantoin; continue ceftriaxone 05/15- to change to cefuroxime at discharge transaminitis - appears improved despite not holding statin; possibly was due to infection? Alzheimer dementia with behavioral disturbance and delusions - Psych consult requested, pending; continue memantine pAF - continue metoprolol succinate, apixaban hx TIA PVD - continue apixaban HTN - lisinopril, metoprolol succinate VTE ppx - apixaban dispo - TBD, PT consult pending In my clinical judgment, the patient requires continued inpatient hospitalization for the following reasons: dementia, placement Quality Stroke Does the patient have a stroke diagnosis?: No VTE Prior VTE?: No VTE Risk Level:: Medical - moderate - high VTE Device Contraindication: Treatment Not Indicated VTE Drug Contraindication: N/A - Med Ordered
[2024-05-17 15:22] VITALS: BP 142/69; PULSE 69; RESP 18; TEMP 36.2; O2SAT 97
[2024-05-17 19:44] VITALS: BP 160/66; PULSE 72; RESP 18; TEMP 36.4; O2SAT 96
--- NOTE | 2024-05-17 19:49 | P.CNPS_ITS ---
History of Present Illness Date of Service: 05/17/24 Chief Complaint: uti, confusion Reason for Consult: Confusion Requesting physician: Angel Stallings Discussed with referring provider: Yes Sources of Information: patient interviewed and chart reviewed HPI Narrative: Brief note. Patient is an 84 year old female with history of alzheimers dementia, pafib, htn, hld, tia, carotid stenosis, pvd, presented with confusion. history obtained from ER as patient poor historian and unable to contact son. patient lives with son who brought paitent in for increased confusion, lethargy, hallucinations, was diagnosed with uti on 05/07/24, prescribed macrobid but only filled on 05/13/24. denies fever, chills. in ED very confused, leukocytosis, ua negative. Consult requested to evaluate hallucinations on 05/14. Patient wasn't seen. Medical team reached out again today. Met with patient, spoke to RN and Dr. Stallings. Patient's symptoms of hallucinations have resolved since admission. She is pleasantly confused today. She was able to calmly participate in an interview and was very pleasant. 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 She lives in [place] with her son. She has 7 children. She isn't sure why she is in the hospital but believes she is here because of her feet. She has a history of orthopedic feet surgeries. She was confused about the date believing it was February and didn't know the year. She says she is sad about the loss of functioning she has. She is unable to walk. Has to use a [employer] lift to get out of bed at home. Describes her home as being disability accessible. She says her son that lives with her had a work accident and his spinal cord was severed and is wheelchair bound but has modified the house to make it accessible. She is (although she at one point mentioned she lives with her .) She denies hallucinations. RN reports she has been cooperative with care and pleasant. She has been treated for her UTI. MSE: Elderly pleasantly confused lady. Good eye contact. Conversant. Alert. Oriented to place and person only. Hospital gown. Good eye contact. Cooperative pleasant. Speech clear. Mood: Sad because I can't do the things I used to do. Affect: Full range. Reactive. No SI No HI No AVH. Suspect resolved delirium superimposed on dementia as main cause of her presentation. No need for medication interventions and continue treating underlying medical/metabolic causes. Reconsult if status changes. [facility] Medical History PAD (peripheral artery disease) Dementia Paroxysmal atrial fibrillation Peripheral neuropathy TIA (transient ischemic attack) Foot drop Carotid artery stenosis Afib Hyperlipidemia Anemia Hypertension Surgical History S/P aortogram with runoff H/O foot surgery History of bilateral knee replacement H/O tubal ligation History of cholecystectomy H/O endarterectomy Diagnostics Vital Signs (24Hr): Vital Signs - 24 hr 05/17/24 04:00 05/17/24 07:34 05/17/24 15:22 Temperature 96.8 F 97.6 F 97.2 F Pulse Rate 66 66 69 Respiratory Rate 14 16 18 Blood Pressure 128/61 162/70 H 142/69 H Pulse Oximetry 96 97 97 Oxygen Delivery Method Room Air Room Air Room Air Oxygen Flow Rate 05/17/24 19:44 Temperature 97.5 F Pulse Rate 72 Respiratory Rate 18 Blood Pressure 160/66 H Pulse Oximetry 96 Oxygen Delivery Method Room Air Oxygen Flow Rate 0 BMI result Body Mass Index 35.4 Labs 05/17/24 08:49 05/17/24 08:49 Labs: Laboratory Results - last 48 hr 05/16/24 05/17/24 05:39 08:49 WBC 4.8 4.4 L RBC 3.02 L 3.84 L D Hgb 9.8 L 12.6 D Hct 29.4 L 37.4 D MCV 97.4 97.4 MCH 32.5 32.8 MCHC 33.3 33.7 RDW 13.9 13.7 Plt Count 177 121 L D MPV 12.0 12.5 H Absolute Nucleated RBC 0.000 0.000 Nucleated RBC % (auto) 0.0 0.0 Absolute Retic 0.087 Percent Retic 2.3 H Immature Retic Fraction 15.2 Retic Hgb Equivalent 33.9 Sodium 143 142 Potassium 3.5 3.5 Chloride 114 H 111 H Carbon Dioxide 23 21 L Anion Gap 10 L 14 BUN 23 H 15 Creatinine 0.52 0.56 Estim Creat Clear Calc 92.6 85.9 Estimated GFR > 60 > 60 Random Glucose 94 88 Calcium 9.0 9.7 D Iron 77 TIBC 168 L % Saturation 46 Unsat Iron Binding 91 Total Bilirubin 0.4 0.4 Direct Bilirubin 0.2 AST 44 H 24 ALT 108 H 83 H Alkaline Phosphatase 103 111 Lactate Dehydrogenase 164 Total Protein 5.7 L 6.5 Albumin 3.0 L 3.3 L Vitamin B12 535 Folate 13.2 Imaging Radiology Impressions: ITS Impressions Chest X-Ray 05/14/24 12:51 IMPRESSION: 1. Poor inspiratory effort. 2. Small bilateral pleural fluid or thickening. Abdomen/Pelvis CT 05/14/24 17:55 IMPRESSION: 1. No evidence for central pulmonary emboli. Dependent airspace changes likely reflecting atelectasis. 2. No acute intra-abdominal process. Chronic appearing changes as described. 3. VTE: Negative. Chest CTA 05/14/24 17:55 IMPRESSION: 1. No evidence for central pulmonary emboli. Dependent airspace changes likely reflecting atelectasis. 2. No acute intra-abdominal process. Chronic appearing changes as described. 3. VTE: Negative. Medications Medications Current Medications Acetaminophen (Acetaminophen 325 Mg Tablet) 650 mg PO Q6H PRN PRN Reason: Pain, Mild (Pain Scale 1-3), fever or headache Last Admin: 05/15/24 02:30 Dose: 650 mg Apixaban (Apixaban 5 Mg Tablet) 5 mg PO BID [facility] Last Admin: 05/17/24 08:45 Dose: 5 mg Atorvastatin Calcium (Atorvastatin Calcium 10 Mg Tablet) 10 mg PO BEDTIME [facility] Last Admin: 05/16/24 19:57 Dose: 10 mg Benzocaine (Throat Lozenge, Medicated Lozenge) 1 lozenge MUCOUS MEM Q2H PRN PRN Reason: Sore Throat Calcium Carbonate (Calcium Carbonate 750 Mg Tab.Chew) 750 mg PO Q4H PRN PRN Reason: Heartburn Docusate Sodium (Docusate Sodium 100 Mg Capsule) 100 mg PO BID [facility] Last Admin: 05/17/24 08:45 Dose: 100 mg Ferrous Sulfate (Ferrous Sulfate 324 Mg Tablet.Dr) 324 mg PO DAILY [facility] Last Admin: 05/17/24 08:45 Dose: 324 mg Gabapentin (Gabapentin 100 Mg Capsule) 100 mg PO TID [facility] Last Admin: 05/17/24 14:37 Dose: 100 mg Ceftriaxone Sodium 1 gm/ (Sodium Chloride) 50 mls @ 100 mls/hr IV Q24H [facility] Last Infusion: 05/17/24 12:04 Dose: Infused Lisinopril (Lisinopril 5 Mg Tablet) 5 mg PO DAILY [facility]; Protocol Last Admin: 05/17/24 08:45 Dose: 5 mg Lorazepam (Lorazepam 2 Mg/Ml Vial) 0.5 mg IVPUSH ONCE PRN PRN Reason: anxiety/restlessness Last Admin: 05/15/24 16:01 Dose: 0.5 mg Magnesium Hydroxide (Milk Of Magnesia 30 Ml Oral.Susp) 30 ml PO DAILY PRN PRN Reason: Constipation Melatonin (Melatonin 3 Mg Tablet) 6 mg PO BEDTIME PRN PRN Reason: Insomnia Last Admin: 05/16/24 19:57 Dose: 6 mg Memantine (Memantine Hcl 5 Mg Tablet) 5 mg PO BID [facility] Last Admin: 05/17/24 08:45 Dose: 5 mg Metoprolol Succinate (Metoprolol Succinate Er 25 Mg Tab.Er.24h) 25 mg PO DAILY [facility]; Protocol Last Admin: 05/17/24 08:45 Dose: 25 mg Mirabegron (Mirabegron 50 Mg Tab.Er.24h) 50 mg PO DAILY [facility] Last Admin: 05/17/24 08:45 Dose: 50 mg Multivitamins/Vitamin C (Multivitamin Tablet) 1 tab PO DAILY [facility] Last Admin: 05/17/24 08:45 Dose: 1 tab Senna (Sennosides 8.6 Mg Tablet) 8.6 mg PO BEDTIME [facility] Last Admin: 05/16/24 19:57 Dose: 8.6 mg Silver Sulfadiazine (Silver Sulfadiazine 1 % Cream 20 Gm Tube) 1 appl TOPICAL BID PRN PRN Reason: Rash Sodium Chloride (0.9 % Sodium Chloride Flush 3 Ml Syringe) 3 ml IVFLUSH QSHIFT [facility] Last Admin: 05/17/24 14:37 Dose: 3 ml Sodium Hypochlorite (Sodium Hypochlorite 0.25% 473 Ml Solution) 1 appl TOPICAL DAILY [facility] Last Admin: 05/17/24 08:47 Dose: Not Given Vitamin D (Cholecalciferol (Vitamin D3) 25 Mcg Tablet) 25 mcg PO DAILY [facility] Last Admin: 05/17/24 08:45 Dose: 25 mcg Allergies Allergies Allergy/AdvReac Type Severity Reaction Status Date / Time gentamicin [GENTAMICIN] Allergy Intermediate SWELLING Verified 05/14/24 12:02 sulfamethoxazole Allergy Intermediate RASH Verified 05/14/24 12:02 [From BACTRIM] trimethoprim [From BACTRIM] Allergy Intermediate RASH Verified 05/14/24 12:02 Assessment & Plan Assessment & Plan (1) Delirium due to another medical condition: Status: Acute Code(s): F05 - Delirium due to known physiological condition (2) Dementia with behavioral problem: Status: Acute Code(s): F03.918 - Unspecified dementia, unspecified severity, with other behavioral disturbance Total time managing care of this patient today ____ minutes. Patient educated on: therapeutic strategies and medical condition
[2024-05-17] MEDS: Sennosides 8.6 MG TABLET PO (20:37)
[2024-05-17] MEDS: Melatonin 3 MG TABLET 6 MG PO (20:37)
[2024-05-17] MEDS: Atorvastatin Calcium 10 MG TABLET PO (20:37)
[2024-05-18 04:00] VITALS: BP 142/66; PULSE 66; RESP 16; TEMP 36.6; O2SAT 95
[2024-05-18] MEDS: 0.9 % Sodium Chloride Flush 3 ML SYRINGE IVFLUSH (07:17)
[2024-05-18 08:00] VITALS: BP 160/96; PULSE 74; RESP 20; TEMP 37; O2SAT 96
[2024-05-18] MEDS: Cholecalciferol (Vitamin D3) 25 MCG TABLET PO (08:11)
[2024-05-18] MEDS: Apixaban 5 MG TABLET PO (08:11)
[2024-05-18] MEDS: Multivitamin TABLET 1 TAB PO (08:11)
[2024-05-18] MEDS: Metoprolol Succinate ER 25 MG TAB.ER.24H PO (08:11)
[2024-05-18] MEDS: Gabapentin 100 MG CAPSULE PO (08:11)
[2024-05-18] MEDS: Ferrous Sulfate 324 MG TABLET.DR PO (08:11)
[2024-05-18] MEDS: Memantine HCl 5 MG TABLET PO (08:11)
[2024-05-18] MEDS: Mirabegron 50 MG TAB.ER.24H PO (08:11)
[2024-05-18] MEDS: Docusate Sodium 100 MG CAPSULE PO (08:11)
[2024-05-18] MEDS: lisinopriL 5 MG TABLET PO (08:11)
[2024-05-18] MEDS: cefTRIAXone sodium 1 GM in 0.9 % Sodium Chloride 50 ML IV (10:14)
--- NOTE | 2024-05-18 10:40 | MHC.CM.PN ---
pt is dcd today spke with son josh pt will be picked about 2 ameydysis will be notified of dc
[2024-05-18 10:51] VITALS: BMI 35.4
--- NOTE | 2024-05-18 11:00 | MHC.CLN ---
NUTRITION DIET=REGULAR. STAGE II PRESSURE INJURY TO LEFT HEEL. ADDING ENSURE MAX BID TO PROMOTE WOUND HEALING. SUPPLEMENT PROVIDES 300 KCALS, 60 G PROTEIN. PO INTAKE VARIABLE, 0-100% FOLLOW FOR INTAKE AND WOUND HEALING.
--- NOTE | 2024-05-18 11:48 | P.DS_ITS ---
DS: Providers Provider Date of Service: 05/18/24 Date of admission: 05/14/24 22:17 Primary care physician: Buster Hyde MD Consults: 05/14/24 22:28 Consult to Psychiatry Routine Consulting Provider: Psych Covering Reason for consultation: dementia with behavioural distrubance and delusions DS: Diagnosis Discharge Diagnosis (1) Delirium due to another medical condition: Status: Acute (2) Dementia with behavioral problem: Status: Acute (3) Encephalopathy due to infection: Status: Acute (4) Urinary tract infection: Status: Inactive DS: Summary Hospital Course Hospital Course: From the history and physical by the admitting hospitalist, Lui Rendon MD, 05/14/24: 84F PMH alzheimers dementia, pafib, htn, hld, tia, carotid stenosis, pvd, presented with confusion. history obtained from ER as patient poor historian and unable to contact son. patient lives with son who brought paitent in for increased confusion, lethargy, hallucinations, was diagnosed with uti on 05/07/24, prescribed macrobid but only filled on 05/13/24. denies fever, chills. in ED very confused, leukocytosis, ua negative. 84yo F with Alzheimers dementia, pAF, HTN, HLD, carotid stenosis, hx TIA, and PVD presenting with confusion and admitted for encephalopathy likely due to UTI. Negative UA likely due to partial treatment witn nitrofurantoin. She was treated with 4 days of IV ceftriaxone and discharged with 3 days of PO cefuroxime. Mental status improved to baseline with treatment of the infection; memantine was continued. Transminases were elevated on admission but improved despite continuing statin; the elevation was likely due to the infection. She was discharged home with resumption of home VNA service and home health care. Time Attestation Discharge Coordination Time (in mins): 40 Quality: Safe Use of Opioids Does Pt have an Active Cancer Diagnosis on the Problem List?: No Quality: Stroke Does the patient have a stroke diagnosis?: No Physical Exam Vital Signs: Vital Signs: Last Vital Signs Temp 98.6 F 05/18/24 08:00 Pulse 74 05/18/24 08:00 Resp 20 05/18/24 08:00 BP 160/96 H 05/18/24 08:00 Pulse Ox 96 05/18/24 08:00 O2 Del Method Room Air 05/18/24 08:00 O2 Flow Rate 0 05/17/24 19:44 BMI result Body Mass Index 35.4 Gen: in no acute distress HEENT: sclera anicteric, moist mucus membranes Neck: supple Lungs: clear to auscultation bilaterally Heart: regular rate and rhythm, no murmurs Abd: soft, non-tender, non-distended Ext: no edema Skin: warm/well-perfused Neuro: alert and oriented to self/place but not day/year Psych: impaired insight DS: Data Data Completed and Pending Completed studies during hospitalization [Text1]: Laboratory Results WBC 4.4 X10*3/uL (4.8-10.8) L 05/17/24 08:49 RBC 3.84 X10*6/uL (4.20-5.50) L D 05/17/24 08:49 Hgb 12.6 g/dl (12.0-16.0) D 05/17/24 08:49 Hct 37.4 % (37.0-47.0) D 05/17/24 08:49 MCV 97.4 fL (80.0-98.0) 05/17/24 08:49 MCH 32.8 pg (27.0-33.0) 05/17/24 08:49 MCHC 33.7 g/dl (31.0-35.0) 05/17/24 08:49 RDW 13.7 % (11.0-16.0) 05/17/24 08:49 Plt Count 121 X10*3/uL (160-400) L D 05/17/24 08:49 MPV 12.5 fL (9.4-12.3) H 05/17/24 08:49 Immature Gran % (Auto) Cancelled 05/14/24 12:20 Neut % (Auto) Cancelled 05/14/24 12:20 Lymph % (Auto) Cancelled 05/14/24 12:20 [place] % (Auto) Cancelled 05/14/24 12:20 Eos % (Auto) Cancelled 05/14/24 12:20 Baso % (Auto) Cancelled 05/14/24 12:20 Lymph # (Auto) Cancelled 05/14/24 12:20 [place] # (Auto) Cancelled 05/14/24 12:20 Eos # (Auto) Cancelled 05/14/24 12:20 Baso # (Auto) Cancelled 05/14/24 12:20 Abs Immat Gran (auto) Cancelled 05/14/24 12:20 Absolute Neuts (auto) Cancelled 05/14/24 12:20 Absolute Nucleated RBC 0.000 X10*3/uL (0.0-0.012) 05/17/24 08:49 Nucleated RBC % (auto) 0.0 /100WBC (0.0-0.2) 05/17/24 08:49 Neutrophils % (Manual) 85 % (45-73) H 05/14/24 12:20 Band Neutrophils % 8 % (3-5) H 05/14/24 12:20 Lymphocytes % (Manual) 4 % (20-40) L 05/14/24 12:20 Monocytes % (Manual) 2 % (2-11) 05/14/24 12:20 Basophils % (Manual) 1 % (0-2) 05/14/24 12:20 Abs Neuts (Manual) 15.7 X10*3/uL (2.0-8.3) H 05/14/24 12:20 Lymphocytes # (Manual) 0.7 X10*3/uL (1.2-4.9) L 05/14/24 12:20 Monocytes # (Manual) 0.3 X10*3/uL (0.1-1.2) 05/14/24 12:20 Basophils # (Manual) 0.2 X10*3/uL (0.0-0.2) 05/14/24 12:20 Toxic Vacuolation PRESENT 05/14/24 12:20 Platelet Estimate NORMAL (NORMAL) 05/14/24 12:20 Plt Morphology Comment NORMAL 05/14/24 12:20 RBC Morphology NORMAL 05/14/24 12:20 Absolute Retic 0.087 X10*6/uL (0.026-0.095) 05/17/24 08:49 Percent Retic 2.3 % (0.5-1.8) H 05/17/24 08:49 Immature Retic Fraction 15.2 % (3.0-15.9) 05/17/24 08:49 Retic Hgb Equivalent 33.9 pg (30.0-35.0) 05/17/24 08:49 Sodium 142 mmol/L (135-145) 05/17/24 08:49 Potassium 3.5 mmol/L (3.3-5.1) 05/17/24 08:49 Chloride 111 mmol/L (96-108) H 05/17/24 08:49 Carbon Dioxide 21 mmol/L (22-29) L 05/17/24 08:49 Anion Gap 14 (12-20) 05/17/24 08:49 BUN 15 mg/dL (9-16) 05/17/24 08:49 Creatinine 0.56 mg/dL (0.5-1.4) 05/17/24 08:49 Estim Creat Clear Calc 85.9 05/17/24 08:49 Estimated GFR > 60 05/17/24 08:49 Random Glucose 88 mg/dL (60-115) 05/17/24 08:49 Fasting Glucose 108 mg/dL (60-99) H 05/15/24 05:31 Lactic Acid 1.5 mmol/L (0.5-2.0) 05/14/24 14:42 Calcium 9.7 mg/dL (8.4-10.2) D 05/17/24 08:49 Magnesium 1.9 mg/dL (1.6-2.6) 05/15/24 05:31 Iron 77 mcg/dL (30-160) 05/17/24 08:49 TIBC 168 mcg/dL (228-428) L 05/17/24 08:49 % Saturation 46 % (15-50) 05/17/24 08:49 Unsat Iron Binding 91 ug/dL 05/17/24 08:49 Total Bilirubin 0.4 mg/dL (0.0-1.0) 05/17/24 08:49 Direct Bilirubin 0.2 mg/dL (0.0-0.5) 05/16/24 05:39 AST 24 U/L (5-31) 05/17/24 08:49 ALT 83 U/L (0-31) H 05/17/24 08:49 Alkaline Phosphatase 111 U/L (39-117) 05/17/24 08:49 Ammonia 32 umol/L (13-55) 05/14/24 12:20 Lactate Dehydrogenase 164 U/L (122-220) 05/17/24 08:49 Total Creatine Kinase 65 U/L (26-140) 05/14/24 12:20 Troponin I High Sens 4.5 ng/L (<3.5-17.0) D 05/14/24 12:20 B-Natriuretic Peptide 140 pg/mL (<100) H 05/14/24 17:48 Total Protein 6.5 g/dL (6.5-8.0) 05/17/24 08:49 Albumin 3.3 g/dL (3.5-5.0) L 05/17/24 08:49 Lipase 11 U/L (8-78) 05/14/24 12:20 Vitamin B12 535 pg/mL (200-900) 05/17/24 08:49 Folate 13.2 ng/mL (> or = 4.0) 05/17/24 08:49 TSH 0.87 uIU/mL (0.32-4.0) 05/14/24 12:20 Urine Color Dark Yellow 05/14/24 15:47 Urine Appearance Clear 05/14/24 15:47 Urine pH 5.5 (5.0-9.0) 05/14/24 15:47 Ur Specific [place] 1.020 (1.005-1.025) 05/14/24 15:47 Urine Protein 30 (1+) mg/dL (Neg-Trace) H 05/14/24 15:47 Urine Glucose (UA) Negative mg/dL (Negative) 05/14/24 15:47 Urine Ketones Negative mg/dL (Negative) 05/14/24 15:47 Urine Blood Negative (Negative) 05/14/24 15:47 Urine Nitrite Negative (Negative) 05/14/24 15:47 Ur Leukocyte Esterase Small (1+) (Negative) H 05/14/24 15:47 Urine RBC 0-2 /HPF (0-2) 05/14/24 15:47 Urine WBC 0-5 /HPF (0-5) 05/14/24 15:47 Ur Squamous Epith Cells 0-2 /HPF (0-2) 05/14/24 15:47 Urine Bacteria None Seen (None Seen) 05/14/24 15:47 Hyaline Casts 0-2 /LPF (0-2) 05/14/24 15:47 Influenza Type A (PCR) NEGATIVE (Negative) 05/14/24 12:20 Influenza Type B (PCR) NEGATIVE (Negative) 05/14/24 12:20 RSV RNA Qual (PCR) NEGATIVE (Negative) 05/14/24 12:20 SARS-CoV-2 RNA (RT-PCR) NEGATIVE (Negative) 05/14/24 12:20 Impressions Chest X-Ray 05/14/24 12:51 IMPRESSION: 1. Poor inspiratory effort. 2. Small bilateral pleural fluid or thickening. Abdomen/Pelvis CT 05/14/24 17:55 IMPRESSION: 1. No evidence for central pulmonary emboli. Dependent airspace changes likely reflecting atelectasis. 2. No acute intra-abdominal process. Chronic appearing changes as described. 3. VTE: Negative. Chest CTA 05/14/24 17:55 IMPRESSION: 1. No evidence for central pulmonary emboli. Dependent airspace changes likely reflecting atelectasis. 2. No acute intra-abdominal process. Chronic appearing changes as described. 3. VTE: Negative. Discharge Plan Discharge Anticipated Discharge Date/Time: 05/18/24 14:42 Patient Disposition: Home Health Service Discharge Diagnosis: encephalopathy due to urinary tract infection dementia Referrals: [facility] [Other] - 1 Week Buster Hyde MD [Primary Care Provider] - 1 Week Discharge Medications: New cefuroxime axetil 500 mg tablet 500 mg PO BID Qty: 6 0RF Continued atorvastatin 10 mg tablet 10 mg PO BEDTIME gabapentin 100 mg capsule 100 mg PO TID metoprolol succinate 25 mg tablet extended release 24 hr 25 mg PO DAILY memantine 5 mg tablet 5 mg PO BID cholecalciferol (vitamin D3) 25 mcg (1,000 unit) tablet 25 mcg PO DAILY ferrous sulfate 324 mg (65 mg iron) tablet,delayed release (DR/EC) 324 mg PO DAILY mirabegron [Myrbetriq] 50 mg tablet extended release 24 hr 50 mg PO DAILY Eliquis 5 mg tablet 5 mg PO BID Hold Instructions: Hold until you follow with Dr Ford who will decide when to restart it multivitamin Tablet 1 tab PO DAILY sennosides [senna] 8.6 mg Tablet 8.6 mg PO BEDTIME Rx Instructions: HOLD FOR LOOSE STOOL acetaminophen 500 mg Tablet 1,000 mg PO TID docusate sodium 100 mg Tablet 100 mg PO BID silver sulfadiazine [SSD] 1 % cream 1 appl topical BID PRN (Reason: Rash) lisinopril 5 mg tablet 5 mg PO DAILY Discharge Orders: Discharge Order (Routine); Ordered 05/18/24 Ordered By: Angel Stallings Diet: Advance to usual diet Activity on Discharge: As tolerated Stand Alone Forms: Patient Portal Discharge page Print Language: Hungarian Care Plan Goals: cure of UTI Health Concerns: encephalopathy due to urinary tract infection dementia Plan of Treatment: return home with resumption of nursing services/home health care take cefuroxime 500 mg twice daily for 3 days Please follow up with your primary care doctor within 1 week. Return to the hospital if you experience recurrent or worsening symptoms. Assessment: See Discharge Summary. Discharge Date/Time: 05/18/24 14:01
--- NOTE | 2024-05-18 11:52 | PC.NURSE ---
Attempted to Call pt son Horacio three times, no answer.
--- NOTE | 2024-05-18 12:05 | PC.NURSE ---
Son called Horacio, updated with discharge paperwork.
== END 2024-05-18 14:01 | disposition home health service (06) | DRG 689 ==
LOC: HO.ED 21:14 → HO.EDOVER 22:30 → HO.S3 05-15 08:25
PROVIDERS: Internal Medicine; Physician Assistant Medical; Admitting Provider Internal Medicine; Emergency Provider Emergency Medicine; PCP Internal Medicine; Visit Provider Family Medicine
DX: N39.0 Urinary tract infection, site not specified (principal); G93.41 Metabolic encephalopathy; F02.818 Dementia in other diseases classified elsewhere, unspecified severity, with other behavioral disturbance; F05 Delirium due to known physiological condition; R74.01 Elevation of levels of liver transaminase levels; I25.10 Atherosclerotic heart disease of native coronary artery without angina pectoris; I48.0 Paroxysmal atrial fibrillation; I10 Essential (primary) hypertension; G30.9 Alzheimer's disease, unspecified; E78.5 Hyperlipidemia, unspecified; T37.8X6A Underdosing of other specified systemic anti-infectives and antiparasitics, initial encounter; Z20.822 Contact with and (suspected) exposure to COVID-19; Z86.73 Personal history of transient ischemic attack (TIA), and cerebral infarction without residual deficits; Z79.01 Long term (current) use of anticoagulants; Z79.899 Other long term (current) drug therapy
CPT/HCPCS: 0241U; 36415; 70450; 71046; 71275; 74177; 80048; 80053; 80076; 81001; 81003; 82140; 82248; 82550; 82607; 82746; 83540; 83605; 83615; 83690; 83735; 83880; 84443; 84484; 85007; 85027; 85045; 87040; 87086; 99285; J0696; J2060; J2543; J3370; Q9967

== ENCOUNTER → 2024-05-14 22:17 | Outpatient (BNV) | payer MEDICARE, SELFPAY | PROVIDERS: Admitting Provider Internal Medicine; Emergency Provider Emergency Medicine; PCP Internal Medicine; Visit Provider Internal Medicine | DX: G93.49 Other encephalopathy (principal); F03.918 Unspecified dementia, unspecified severity, with other behavioral disturbance; F05 Delirium due to known physiological condition; B99.9 Unspecified infectious disease; N39.0 Urinary tract infection, site not specified | CPT/HCPCS: 99223; 99231; 99232; 99239 ==

== ENCOUNTER → 2024-05-14 22:17 | Outpatient (BNV) | payer MEDICARE, SELFPAY | PROVIDERS: Admitting Provider Internal Medicine; Emergency Provider Emergency Medicine; PCP Internal Medicine; Visit Provider Psychiatry & Neurology Psychiatry | DX: F03.918 Unspecified dementia, unspecified severity, with other behavioral disturbance (principal); F05 Delirium due to known physiological condition; N39.0 Urinary tract infection, site not specified | CPT/HCPCS: 99221 ==

== ENCOUNTER 2024-05-30 19:28 | Emergency (ER) | payer MEDICARE, SELFPAY ==
--- NOTE | ~2024-05-30 | XR_ITS ---
EXAMINATION: XR CHEST COMPARISON: CTA chest on 05/14/2024 TECHNIQUE: Frontal view of the chest was obtained. FINDINGS: No significant abnormality is noted involving the heart, lungs, mediastinum, bony thorax or soft tissues. XR/XR chest 2V IMPRESSION: Unremarkable examination. Electronically signed by: Marti Mclaughlin MD 05/30/2024 09:36 PM EDT RP
[2024-05-30 19:30] VITALS: BP 124/59; PULSE 64; RESP 18; TEMP 36.6; O2SAT 95; BMI 35.5
--- NOTE | 2024-05-30 19:31 | ED.GENADULT ---
HPI - General Adult General Chief complaint: General Medical Stated complaint: covid+ Time Seen by Provider: 05/30/24 20:41 Source: patient and family (patient's son) Mode of arrival: ambulatory Limitations: no limitations History of Present Illness ED Provider: Renita Hoffman PA-C HPI narrative: Patient is an 84 year old assigned female at with a history of PAD presenting to the emergency department today after testing positive for COVID-19. Patient states that she tested positive for COVID-19 today. Patient states that over the last 2 days she has had an intermittent cough and a dry throat. Patient denies any dizziness, lightheadedness, abdominal pain, nausea, vomiting, fever, chills, blurry vision, double vision, loss of vision, chest pain, difficulty breathing, shortness of breath, back pain, night sweats, pain with urination, increased urinary frequency, increased urinary urgency, blood in her urine or stool, syncope or a near syncopal episode, recent trauma or falls, bowel incontinence, bladder incontinence, or any other complaints at this time. Onset (ago): day(s) (2) Relieving factors: none Exacerbating factors: none Associated symptoms: cough Treatments prior to arrival: none Related Data Home Medications ?Medication ?Instructions ?Recorded ?Confirmed apixaban 5 mg tablet (Eliquis) 5 mg PO BID 01/06/24 05/15/24 atorvastatin 10 mg tablet 10 mg PO BEDTIME 01/06/24 05/15/24 cholecalciferol (vitamin D3) 25 25 mcg PO DAILY 01/06/24 05/15/24 mcg (1,000 unit) tablet ferrous sulfate 324 mg (65 mg 324 mg PO DAILY 01/06/24 05/15/24 iron) tablet,delayed release gabapentin 100 mg capsule 100 mg PO TID 01/06/24 05/15/24 memantine 5 mg tablet 5 mg PO BID 01/06/24 05/15/24 metoprolol succinate 25 mg 25 mg PO DAILY 01/06/24 05/15/24 tablet,extended release 24 hr mirabegron 50 mg tablet,extended 50 mg PO DAILY 01/06/24 05/15/24 release 24 hr (Myrbetriq) multivitamin 1 tab PO DAILY 01/06/24 05/15/24 acetaminophen 500 mg tablet 1,000 mg PO TID 01/16/24 05/15/24 docusate sodium 100 mg tablet 100 mg PO BID 01/16/24 05/15/24 sennosides 8.6 mg tablet (senna) 8.6 mg PO BEDTIME 01/16/24 05/15/24 lisinopril 5 mg tablet 5 mg PO DAILY 05/14/24 05/15/24 silver sulfadiazine 1 % topical 1 appl topical BID PRN Rash 05/14/24 05/15/24 cream (SSD) Previous Rx's ?Medication ?Instructions ?Recorded cefuroxime axetil 500 mg tablet 500 mg PO BID #6 tabs 05/18/24 Allergies Allergy/AdvReac Type Severity Reaction Status Date / Time gentamicin [GENTAMICIN] Allergy Intermediate SWELLING Verified 05/30/24 19:36 sulfamethoxazole Allergy Intermediate RASH Verified 05/30/24 19:36 [From BACTRIM] trimethoprim [From BACTRIM] Allergy Intermediate RASH Verified 05/30/24 19:36 Review of Systems Constitutional: Constitutional: Reports no additional constitutional complaints, Denies chills, Denies fever(s) and Denies night sweats Eyes: Eyes: Reports no additional eye complaints, Denies blurry vision, Denies change in vision, Denies diplopia, Denies eye discharge, Denies loss of vision and Denies eye pain ENT: Denies dizziness Comments: dry throat Cardiovascular: Cardiovascular: Reports no additional cardiovascular complaints, Denies chest pain, Denies lightheadedness, Denies Loss of Consciousness and Denies dyspnea Respiratory: Respiratory: Reports no additional respiratory complaints, Reports cough and Denies dyspnea Gastrointestinal: Gastrointestinal: Reports no additional gastrointestinal complaints, Denies abdominal pain, Denies melena, Denies hematochezia, Denies change in bowel habits and Denies change in stool character Genitourinary: Genitourinary: Denies hematuria, Denies urinary frequency, Denies dysuria, Denies urinary incontinence, Denies urinary hesitancy and Denies urinary urgency Musculoskeletal: Musculoskeletal: Reports no additional musculoskeletal complaints, Denies numbness and Denies tingling Neurologic: Denies dizziness, Denies loss of vision, Denies numbness and Denies tingling Psychiatric: Psychiatric: Reports no additional psychiatric complaints Endocrine: Endocrine: Reports no additional endocrine complaints Hematologic/Lymphatic: Hematologic/Lymphatic: Reports no additional hematologic/lymphatic complaints Allergic/Immunologic: Allergic/Immunologic: Reports no additional allergic/immunologic complaints PMFSH Past Medical History Attestation statement: The following information was validated with the patient. (all information validated with the patient's son) Source: old records reviewed, obtained from family (patient's son provided additional history and confirmed the history provided by the patient.) and nursing notes reviewed Medical History Dementia with behavioral problem Delirium due to another medical condition PAD (peripheral artery disease) Dementia Paroxysmal atrial fibrillation Peripheral neuropathy TIA (transient ischemic attack) Foot drop Carotid artery stenosis Afib Hyperlipidemia Anemia Hypertension Surgical History S/P aortogram with runoff H/O foot surgery History of bilateral knee replacement H/O tubal ligation History of cholecystectomy H/O endarterectomy Social History Social History Household Members: Unknown / Unable to assess Household Members Other:: pt states home with son and also states snf so unsure Housing: Unknown / Unable to assess Unable to assess alcohol history related to: Unable to respond Alcohol intake: former Comment: as per previous Patient Tobacco Use Status: Never used Tobacco Advance Directives: Yes Advance Directives on File: Yes Advance Directives Date on File: 01/13/24 Do you have a plan to hurt others: No Plan service: No Physical Exam ED Vital Signs: Vital Signs - 24 hr 05/30/24 19:30 05/30/24 21:24 Temperature 98 F 98 F Pulse Rate 64 63 Respiratory Rate 18 16 Blood Pressure 124/59 L 144/55 H Pulse Oximetry 95 95 Oxygen Delivery Method Room Air Room Air BMI result Body Mass Index 35.5 Const General: cooperative, no acute distress, alert and awake Nutritional Appearance: well nourished Orientation/consciousness: patient oriented x3 Limitations: no limitations HENMT Head: Yes normal to inspection and Yes atraumatic Ears: hearing grossly normal bilaterally and external ears normal General nose exam: Normal external nose present, no nasal discharge noted and no epistaxis Face and sinus: Yes normal facial exam, No abrasion and No laceration Mouth: Normal oral and palatal mucosa present, no drooling and no muffled voice Eyes General: appearance normal, both eyes and all related structures Periorbital: periorbital findings normal Eyelids: Yes eyelids normal Conjunctivae: conjunctivae normal Pupils: Equal, round and reactive pupils present EOM: EOMs intact bilaterally Neck Neck: Yes normal visual inspection, Yes full ROM and Yes no lymphadenopathy Chest Chest palpation & inspection: normal inspection of the chest Resp Effort & Inspection: normal respiratory effort and able to speak in complete sentences GI Inspection: Yes normal to inspection Neuro General: patient oriented x3 and moves all extremities Cranial nerves: Yes Equal, round and reactive pupils present Cognition (Neuro): normal cognition Extrem Other: patient's heel in protective boot General: Yes full ROM and Yes capillary refill normal Psych Appearance: grossly normal Mental Status: mental status grossly normal Affect: normal affect Attitude: cooperative Thought process: Normal thought process present Thought content: Normal thought content present Insight: Good insight present (Psych) Course Course Course Narrative: This is a rapid medical exam. Deferred additional HPI, ROS, PE to primary provider. 84 yo female with history of PAD, HLD, OLE, HTN here with complaints sore throat, hoarse voice, cough x 2 days. COVID + at home. Will obtain CXR, covid screen VSS -A. Blanca SEAMAN Medical Decision Making Medical Decision Making [facility] Narrative: Patient is an 84 year old assigned female at with a history of PAD presenting to the emergency department today with an intermittent cough and a dry throat. Patient's physical exam was as noted in the physical exam portion of this note. Patient's COVID-19 test was positive. Patient's chest x-ray showed no acute process. I explained my physical exam findings as well as all test results to the patient and the patient's son. I answered all questions asked by the patient and the patient's son. I stressed the importance of the patient taking her medication as directed (either prescribed or as the over the counter packaging recommends). I stressed the importance of the patient following up with her primary care provider. I stressed the importance of the patient returning to the emergency department immediately if her symptoms were to worsen or if she were to develop any dizziness, shortness of breath, difficulty breathing, chest pain, blurry vision, loss of vision, nausea, vomiting, abdominal pain, fever, chills, back pain, or any other complaints. Patient and the patient's son verbalized agreement and understanding with this treatment plan and discharge. Differential Diagnosis Differential Diagnoses: The differential diagnosis associated with the presentation includes COVID-19 Cough Admission/Observation Consideration of admission/observation: Escalation of care including admission/observation considered Patient would have been admitted to the hospital had her work up had any findings where hospital admission was appropriate and her clinical presentation warranted hospital admission. Lab Data [facility] Lab Attestation statement: I reviewed the patient's lab results. My interpretation of these results are in the [facility] Rationale portion of this note. Labs: Lab Results 05/30/24 Range/Units 19:41 COVID-19 ([place]) Positive A (Negative) COVID-19 Clin Com See Note Independent Interpretation I performed an independent interpretation of an: Plain X-Ray Interpretation: My interpretation is in agreement with the radiologist's impression of this imaging study. EXAMINATION: XR CHEST COMPARISON: CTA chest on 05/14/2024 TECHNIQUE: Frontal view of the chest was obtained. FINDINGS: No significant abnormality is noted involving the heart, lungs, mediastinum, bony thorax or soft tissues. XR/XR chest 2V IMPRESSION: Unremarkable examination. Electronically signed by: Marti Mclaughlin MD 05/30/2024 09:36 PM EDT Dictated By: Marti Mclaughlin MD Signed By: Electronically signed by Marti Mclaughlin MD 05/30/24 [id number] Radiology Impression Discussion of test interpretation with radiology: I have reviewed the radiologist's reading. Independent Historian Clinical information obtained from an independent historian. History obtained from or confirmed by: Other (patient's son provided additional history and confirmed the history provided by the patient.) Discharge Plan Discharge Clinical Impression: COVID-19 Patient Disposition: Home, Self-Care Instructions: COVID-19 (Coronavirus Disease 2019) (ED) Additional Instructions: Drink plenty of fluids. Rest. Follow up with your primary care provider. Return to the emergency department immediately if your symptoms worsen or if you develop any dizziness, shortness of breath, difficulty breathing, chest pain, blurry vision, loss of vision, nausea, vomiting, abdominal pain, fever, chills, back pain, or any other complaints. Prescriptions: No Action atorvastatin 10 mg tablet 10 mg PO BEDTIME gabapentin 100 mg capsule 100 mg PO TID metoprolol succinate 25 mg tablet extended release 24 hr 25 mg PO DAILY memantine 5 mg tablet 5 mg PO BID cholecalciferol (vitamin D3) 25 mcg (1,000 unit) tablet 25 mcg PO DAILY ferrous sulfate 324 mg (65 mg iron) tablet,delayed release (DR/EC) 324 mg PO DAILY mirabegron [Myrbetriq] 50 mg tablet extended release 24 hr 50 mg PO DAILY Eliquis 5 mg tablet 5 mg PO BID Hold Instructions: Hold until you follow with Dr Ford who will decide when to restart it multivitamin Tablet 1 tab PO DAILY sennosides [senna] 8.6 mg Tablet 8.6 mg PO BEDTIME Rx Instructions: HOLD FOR LOOSE STOOL acetaminophen 500 mg Tablet 1,000 mg PO TID docusate sodium 100 mg Tablet 100 mg PO BID silver sulfadiazine [SSD] 1 % cream 1 appl topical BID PRN (Reason: Rash) lisinopril 5 mg tablet 5 mg PO DAILY cefuroxime axetil 500 mg tablet 500 mg PO BID Qty: 6 0RF Referrals: Buster Hyde MD [Primary Care Provider] - Interventions: ED Discharge Assessment Last Done: 05/30/24 21:24 Discharge Date/Time: 05/30/24 21:25 Print Language: Prydeinig
[2024-05-30 19:58] LABS: COVID-19 Test Positive (Negative); IDNOW Serial# 08D9AD1C
[2024-05-30 21:24] VITALS: BP 144/55; PULSE 63; RESP 16; TEMP 36.6; O2SAT 95
== END 2024-05-30 21:25 | disposition home or self-care (01) ==
PROVIDERS: Nurse Practitioner Family; Emergency Provider Emergency Medicine Emergency Medical Services; PCP Internal Medicine
DX: U07.1 COVID-19 (principal); I10 Essential (primary) hypertension; E78.5 Hyperlipidemia, unspecified; I48.0 Paroxysmal atrial fibrillation; Z79.01 Long term (current) use of anticoagulants; Z79.899 Other long term (current) drug therapy; Z79.02 Long term (current) use of antithrombotics/antiplatelets
CPT/HCPCS: 71046; 87635; 99283

== ENCOUNTER 2024-06-01 08:53 | Outpatient (REF) | payer MEDICARE, SELFPAY | END 2024-06-01 08:54 | disposition home or self-care (01) | LOC: HO.HOSX 08:53 | PROVIDERS: Visit Provider Physician Assistant | DX: Z13.89 Encounter for screening for other disorder (principal) ==

== ENCOUNTER 2024-06-22 13:02 | Outpatient (REF) | payer MEDICARE, SELFPAY ==
--- NOTE | ~2024-06-22 | XR_ITS ---
EXAMINATION: XR FEMUR, LEFT CLINICAL INFORMATION: M79.606 - Pain in leg, unspecified COMPARISON: 04/06/2024, 02/07/2024, 01/24/2024. TECHNIQUE: AP and lateral views of the left femur were obtained. FINDINGS: No suspicious focal bony lesion or acute fracture. There is diffuse osteopenia. Intramedullary gisell again noted in place spanning a spiral distal femoral metadiaphyseal fracture, which demonstrates further interval healing with associated bony callus. Stable alignment. Hardware appears intact and well seated without complication. Total left knee arthroplasty in place. Small joint effusion present. Mild to moderate degenerative arthrosis left hip joint. There are vascular calcifications. There is a vascular stent in the medial upper femoral soft tissues. XR/XR femur LT 2V IMPRESSION: 1. No acute findings left femur. 2. Further interval healing spiral fracture distal metadiaphysis right femur. 3. Diffuse osteopenia. 4. Hardware intact without complication. Electronically signed by: Mina Gastelum MD 08/31/2024 12:48 PM BARBARA
== END 2024-06-22 13:03 | disposition home or self-care (01) ==
LOC: HO.XRAY 13:02
PROVIDERS: PCP Internal Medicine; Visit Provider Physician Assistant
DX: M79.605 Pain in left leg (principal)
CPT/HCPCS: 73552; 99212

== ENCOUNTER → 2024-06-22 13:07 | Outpatient (BNV) | payer MEDICARE, SELFPAY | PROVIDERS: PCP Internal Medicine; Visit Provider Radiology Diagnostic Radiology | DX: M79.605 Pain in left leg (principal) | CPT/HCPCS: 73552 ==

== ENCOUNTER 2024-06-22 13:39 | Outpatient (AMB) | payer MEDICARE, SELFPAY ==
[2024-06-22 13:42] VITALS: BMI 35.5
--- NOTE | 2024-06-22 13:42 | A.OFFVIS_ITS ---
Vital Signs 06/22/24 13:42 Height 5 ft 4 in Weight 207 lb BMI 35.5 Intake Visit Reasons: OV-Left hip retrograde nail-w/xray 8 WK follow up Intake Note: Shonda is a 83 year old female who presents today for a follow up visit s/p left hip retrograde nail DOS: 01/08/2024 w/ Dr Reaves. Patient reports no concerns today. Wire Wheeler nor patient are sure if patient is still taking her Eliquis. Allergies gentamicin [GENTAMICIN] Allergy (Intermediate, Verified 06/22/24 13:46) SWELLING sulfamethoxazole [From BACTRIM] Allergy (Intermediate, Verified 06/22/24 13:46) RASH trimethoprim [From BACTRIM] Allergy (Intermediate, Verified 06/22/24 13:46) RASH Medication List - Last Reconciled 06/25/24 by SHARON Briggs-Radha acetaminophen 1,000 mg PO TID apixaban (Eliquis) 5 mg PO BID atorvastatin 10 mg PO BEDTIME cefuroxime axetil 500 mg PO BID cholecalciferol (vitamin D3) 25 mcg PO DAILY docusate sodium 100 mg PO BID ferrous sulfate 324 mg PO DAILY gabapentin 100 mg PO TID lisinopril 5 mg PO DAILY memantine 5 mg PO BID metoprolol succinate ER 25 mg PO DAILY mirabegron ER (Myrbetriq) 50 mg PO DAILY multivitamin 1 tab PO DAILY sennosides (senna) 8.6 mg PO BEDTIME silver sulfadiazine 1% (SSD) 1 appl topical BID PRN HPI HPI OV-Left hip retrograde nail-w/xray 8 WK follow up: Details: 84-year-old female who returns to the office today with her truss assembler for a follow-up of left hip retrograde nailing, 01/08/[address] Reaves. She states she is doing well overall and has no concerns today. [facility] Medical History Dementia with behavioral problem Delirium due to another medical condition PAD (peripheral artery disease) Dementia Paroxysmal atrial fibrillation Peripheral neuropathy TIA (transient ischemic attack) Foot drop Carotid artery stenosis Afib Hyperlipidemia Anemia Hypertension Surgical History S/P aortogram with runoff H/O foot surgery History of bilateral knee replacement H/O tubal ligation History of cholecystectomy H/O endarterectomy Social History Household Members: Unknown / Unable to assess Household Members Other:: pt states home with son and also states snf so unsure Housing: Unknown / Unable to assess Unable to assess alcohol history related to: Unable to respond Alcohol intake: former Comment: as per previous Patient Tobacco Use Status: Never used Tobacco Advance Directives Date on File: 01/13/24 service: No Review of Systems Const All systems reviewed & are unremarkable except as noted in HPI and below Physical Exam Vital Signs: BMI result Body Mass Index 35.5 Extrem Other: Left hip:Incision well healed. No erythema or drainage. She has soft compartment. NVI. Results Reviewed Results Reviewed: Xrays were obtained today and personally reviewed by me of the right femur show intact hardware with interval healing and stable fracture Assessment & Plan Assessment & Plan (1) Comminuted fracture of shaft of femur: Code(s): S72.353A - Displaced comminuted fracture of shaft of unspecified femur, initial encounter for closed fracture Category: Medical Plan I spoke with the patient and her son via telephone and explained the extent of x-ray findings which shows stability of the fracture and intact hardware. I explain to the patient and her son Horacio that with stability of the fracture, it would be ideal if she starts weight bearing and attempting some type of conditioning program which include gait training and ambulation. Son said patient does not walk and has not walked for about 2 years and he feels unsafe due to her deconditioning and is poorly balanced. Patient does express understanding and verbalize that she is interested in working on therapy and we could at least transfer her to a commode which I think is good. She will follow- up as needed. Orders: Orders XR femur LT 2V 06/01/24 M79.606 - Pain in leg, unspecified XR femur LT 2V 06/22/24 M79.606 - Pain in leg, unspecified Patient Instructions: Scribed for Lanny Babb PA-C, by Dong Muñoz medical/surgery registered nurse, on 06/22/2024 at 1:30 PM EST.? I, Lanny Babb PA-C, have personally reviewed and agree with the information entered by the scribe. Coding Level of Care Code Est Pt Level 3 (08617) Complex EM visit Add On G2211 Diagnoses Comminuted fracture of shaft of femur S72.353
== END 2024-06-22 14:14 | disposition home or self-care (01) ==
PROVIDERS: PCP Internal Medicine; Visit Provider Physician Assistant
DX: S72.35 Comminuted fracture of shaft of femur (principal)
CPT/HCPCS: 99213; G2211

== ENCOUNTER 2024-07-06 11:42 | Emergency (ER) | payer MEDICARE, SELFPAY ==
--- NOTE | 2024-07-06 12:21 | ED.GENADULT ---
HPI - General Adult General Chief complaint: Altered Mental Status Stated complaint: delusional, combative, uti? Time Seen by Provider: 07/06/24 21:08 Source: family and EMS Mode of arrival: EMS Limitations: altered mental status History of Present Illness ED Provider: jalil RICHARDSON narrative: Patient's history of severe dementia bed-bound mostly taken care by family nonambulatory does have a home care family noticed patient has been more confused for last 3 days does have history of UTI in the past no vomiting no abdominal pain no fall no fever appetite been normal Related Data Home Medications ?Medication ?Instructions ?Recorded ?Confirmed apixaban 5 mg tablet (Eliquis) 5 mg PO BID 01/06/24 05/15/24 atorvastatin 10 mg tablet 10 mg PO BEDTIME 01/06/24 06/25/24 cholecalciferol (vitamin D3) 25 25 mcg PO DAILY 01/06/24 06/25/24 mcg (1,000 unit) tablet ferrous sulfate 324 mg (65 mg 324 mg PO DAILY 01/06/24 06/25/24 iron) tablet,delayed release gabapentin 100 mg capsule 100 mg PO TID 01/06/24 06/25/24 memantine 5 mg tablet 5 mg PO BID 01/06/24 06/25/24 metoprolol succinate 25 mg 25 mg PO DAILY 01/06/24 06/25/24 tablet,extended release 24 hr mirabegron 50 mg tablet,extended 50 mg PO DAILY 01/06/24 06/25/24 release 24 hr (Myrbetriq) multivitamin 1 tab PO DAILY 01/06/24 06/25/24 acetaminophen 500 mg tablet 1,000 mg PO TID 01/16/24 06/25/24 docusate sodium 100 mg tablet 100 mg PO BID 01/16/24 06/25/24 sennosides 8.6 mg tablet (senna) 8.6 mg PO BEDTIME 01/16/24 06/25/24 lisinopril 5 mg tablet 5 mg PO DAILY 05/14/24 06/25/24 silver sulfadiazine 1 % topical 1 appl topical BID PRN Rash 05/14/24 06/25/24 cream (SSD) Previous Rx's ?Medication ?Instructions ?Recorded cefuroxime axetil 500 mg tablet 500 mg PO BID #6 tabs 05/18/24 Allergies Allergy/AdvReac Type Severity Reaction Status Date / Time gentamicin [GENTAMICIN] Allergy Intermediate SWELLING Verified 07/06/24 12:25 sulfamethoxazole Allergy Intermediate RASH Verified 07/06/24 12:25 [From BACTRIM] trimethoprim [From BACTRIM] Allergy Intermediate RASH Verified 07/06/24 12:25 Review of Systems Review of Systems: Yes all other systems are reviewed and are negative [facility] Past Medical History Medical History Dementia with behavioral problem Delirium due to another medical condition PAD (peripheral artery disease) Dementia Paroxysmal atrial fibrillation Peripheral neuropathy TIA (transient ischemic attack) Foot drop Carotid artery stenosis Afib Hyperlipidemia Anemia Hypertension Surgical History S/P aortogram with runoff H/O foot surgery History of bilateral knee replacement H/O tubal ligation History of cholecystectomy H/O endarterectomy Social History Social History Household Members: Unknown / Unable to assess Household Members Other:: pt states home with son and also states snf so unsure Housing: Unknown / Unable to assess Unable to assess alcohol history related to: Unable to respond Alcohol intake: former Comment: as per previous Patient Tobacco Use Status: Never used Tobacco Smoked in Last 30 Days: No Use of substances other than those prescribed or required for medical reasons: No Advance Directives: Yes Advance Directives on File: Yes Advance Directives Date on File: 01/13/24 service: No Physical Exam ED Vital Signs: Vital Signs - 24 hr 07/06/24 12:23 07/07/24 00:48 Temperature 98.4 F 98.4 F Pulse Rate 68 68 Respiratory Rate 20 18 Blood Pressure 156/79 H 156/79 H Pulse Oximetry 96 98 Oxygen Delivery Method Room Air Room Air BMI result Body Mass Index 35.4 Appearance: Alert. Oriented X1-2. No acute distress. Obese Eyes: PERRLA, No Nystagmus ENT: Pharynx normal. Oral Mucosa moist Neck: Normal inspection. Neck supple. CVS: Normal heart rate and rhythm. Pulses normal. Respiratory: No respiratory distress. Equal air entry bilateral, no wheezing/rales/rhonchi Abdomen: Soft and nontender. Bowel sounds are present, no mass palpable, no CVA tenderness Skin: Skin warm and dry. Rash on lower extremity Normal skin turgor. Extremities: No lower extremity edema. No calf tenderness chronic rash status dermatitis of bilateral lower extremities Neuro: Oriented X 1-2. Limited movements of lower extremities good range of movement of the upper extremities Course Course Course Narrative: RME, this is a rapid medical exam performed by Gerardo Rachel please refer to primary provider for complete H&P- 84-year-old female presents for evaluation of increased confusion. Her concerned that she was UTI as she has been acting similarly in the past with UTI. The patient has also had increased urination and incontinence which is not normal for her. She was also complaining of left arm pain for the last 3 days. 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 07/06/24 12:54 07/06/24 12:54 Labs: Lab Results 07/06/24 07/06/24 Range/Units 12:54 21:44 WBC 8.0 (4.8-10.8) X10*3/uL RBC 4.13 L (4.20-5.50) X10*6/uL Hgb 13.6 (12.0-16.0) g/dl Hct 39.6 (37.0-47.0) % MCV 95.9 (80.0-98.0) fL MCH 32.9 (27.0-33.0) pg MCHC 34.3 (31.0-35.0) g/dl RDW 12.4 (11.0-16.0) % Plt Count 218 D (160-400) X10*3/uL MPV 11.2 (9.4-12.3) fL Immature Gran % (Auto) 0.3 (0.0-0.4) % Neut % (Auto) 78.6 H (45-73) % Lymph % (Auto) 15.2 L (20-40) % [place] % (Auto) 4.8 (2-11) % Eos % (Auto) 0.8 (0-4) % Baso % (Auto) 0.3 (0-2) % Lymph # (Auto) 1.2 (1.2-4.9) X10*3/uL [place] # (Auto) 0.4 (0.1-1.2) X10*3/uL Eos # (Auto) 0.1 (0.0-0.4) X10*3/uL Baso # (Auto) 0.0 (0.0-0.2) X10*3/uL Abs Immat Gran (auto) 0.02 (0.00-0.03) X10*3/uL Absolute Neuts (auto) 6.3 (2.0-8.3) x10*3/uL Absolute Nucleated RBC 0.000 (0.0-0.012) X10*3/uL Nucleated RBC % (auto) 0.0 (0.0-0.2) /100WBC PT 15.3 H (10.9-12.4) SEC INR 1.3 H (0.9-1.1) Sodium 139 (135-145) mmol/L Potassium 4.7 D (3.3-5.1) mmol/L Chloride 106 (96-108) mmol/L Carbon Dioxide 24 (22-29) mmol/L Anion Gap 14 (12-20) BUN 22 H (9-16) mg/dL Creatinine 0.63 (0.5-1.4) mg/dL Estim Creat Clear Calc 76.4 Estimated GFR > 60 Random Glucose 100 (60-115) mg/dL Calcium 10.2 (8.4-10.2) mg/dL Magnesium 2.2 (1.6-2.6) mg/dL Total Bilirubin 0.6 (0.0-1.0) mg/dL AST 17 (5-31) U/L ALT 15 (0-31) U/L Alkaline Phosphatase 117 (39-117) U/L Troponin I High Sens 5.5 (<3.5-17.0) ng/L Total Protein 7.6 (6.5-8.0) g/dL Albumin 4.0 (3.5-5.0) g/dL Lipase 19 (8-78) U/L Urine Color Yellow Urine Appearance Cloudy Urine pH 6.0 (5.0-9.0) Ur Specific [place] 1.020 (1.005-1.025) Urine Protein Negative (Neg-Trace) mg/dL Urine Glucose (UA) Negative (Negative) mg/dL Urine Ketones Negative (Negative) mg/dL Urine Blood Small (1+) H (Negative) Urine Nitrite Positive H (Negative) Ur Leukocyte Esterase Moderate (2+) H (Negative) Urine RBC 0-2 (0-2) /HPF Urine WBC >50 H (0-5) /HPF Ur Squamous Epith Cells 0-2 (0-2) /HPF Urine Bacteria 4+ (None Seen) Hyaline Casts 0-2 (0-2) /LPF Independent Interpretation I performed an independent interpretation of an: EKG Interpretation: Normal sinus rhythm heart rate 67 beats per minute normal interval normal axis no acute STT wave changes impression normal EKG Discharge Plan Discharge Clinical Impression: Dementia Patient Disposition: Home, Self-Care Instructions: Dementia (ED) Additional Instructions: No signs of infection was seen Your blood workup is stable Symptoms likely from dementia Continue her old medications as prescribed and follow with your PCP Prescriptions: No Action atorvastatin 10 mg tablet 10 mg PO BEDTIME gabapentin 100 mg capsule 100 mg PO TID metoprolol succinate 25 mg tablet extended release 24 hr 25 mg PO DAILY memantine 5 mg tablet 5 mg PO BID cholecalciferol (vitamin D3) 25 mcg (1,000 unit) tablet 25 mcg PO DAILY ferrous sulfate 324 mg (65 mg iron) tablet,delayed release (DR/EC) 324 mg PO DAILY mirabegron [Myrbetriq] 50 mg tablet extended release 24 hr 50 mg PO DAILY Eliquis 5 mg tablet 5 mg PO BID multivitamin Tablet 1 tab PO DAILY sennosides [senna] 8.6 mg Tablet 8.6 mg PO BEDTIME Rx Instructions: HOLD FOR LOOSE STOOL acetaminophen 500 mg Tablet 1,000 mg PO TID docusate sodium 100 mg Tablet 100 mg PO BID silver sulfadiazine [SSD] 1 % cream 1 appl topical BID PRN (Reason: Rash) lisinopril 5 mg tablet 5 mg PO DAILY cefuroxime axetil 500 mg tablet 500 mg PO BID Qty: 6 0RF Interventions: ED Discharge Assessment Last Done: 07/07/24 00:48 Discharge Date/Time: 07/07/24 00:50 Print Language: [place]
[2024-07-06 12:23] VITALS: BP 156/79; PULSE 68; RESP 20; TEMP 36.9; O2SAT 96; BMI 35.4
--- NOTE | 2024-07-06 12:23 | ECG_ITS ---
Test Reason : PAIN Blood Pressure : / mmHG Vent. Rate : 067 BPM Atrial Rate : 067 BPM P-R Int : 164 ms QRS Dur : 074 ms QT Int : 426 ms P-R-T Axes : 071 011 040 degrees QTc Int : 450 ms Normal sinus rhythm Normal ECG When compared with ECG of 16-JAN-2024 11:47, Premature ventricular complexes are no longer Present Referred By: Cayetano Rachel Electronically Signed By:JUS GODINEZ
[2024-07-06 13:00] LABS: MANUAL DIFF FLAG NO
[2024-07-06 13:05] LABS: INTERNATIONAL NORM RATIO 1.3 (0.9-1.1); Prothrombin Time 15.3 SEC (10.9-12.4)
[2024-07-06 13:10] LABS: Basophils Percent Auto 0.3 % (0-2); Eosinophils Absolute Auto 0.1 X10*3/uL (0.0-0.4); Eosinophils Percent Auto 0.8 % (0-4); Hematocrit 39.6 % (37.0-47.0); Hemoglobin 13.6 g/dl (12.0-16.0); Imm Gran Abs Auto 0.02 X10*3/uL (0.00-0.03); Imm Gran Pct Auto 0.3 % (0.0-0.4); Lymphocytes Absolute Auto 1.2 X10*3/uL (1.2-4.9); Lymphocytes Percent Auto 15.2 % (20-40); Mean Corpuscular HGB Conc 34.3 g/dl (31.0-35.0); Mean Corpuscular Hemoglobin 32.9 pg (27.0-33.0); Mean Corpuscular Volume 95.9 fL (80.0-98.0); Mean Platelet Volume 11.2 fL (9.4-12.3); Monocytes Absolute Auto 0.4 X10*3/uL (0.1-1.2); Monocytes Percent Auto 4.8 % (2-11); Neutrophils Absolute Auto 6.3 x10*3/uL (2.0-8.3); Neutrophils Percent Auto 78.6 % (45-73); Platelet Count 218 X10*3/uL (160-400); Red Blood Count 4.13 X10*6/uL (4.20-5.50); Red Cell Distribution Width 12.4 % (11.0-16.0)
[2024-07-06 13:19] LABS: Alanine Aminotransferase 15 U/L (0-31); Alkaline Phosphatase 117 U/L (39-117); Anion Gap 14 (12-20); Aspartate Amino Transferase 17 U/L (5-31); Bilirubin Total 0.6 mg/dL (0.0-1.0); Blood Urea Nitrogen 22 mg/dL (9-16); Calcium 10.2 mg/dL (8.4-10.2); Carbon Dioxide 24 mmol/L (22-29); Chloride 106 mmol/L (96-108); Creatinine Clr Calc Pharmacy 76.4; Estimated Glomerular Filt Rate > 60; Glucose Random 100 mg/dL (60-115); Lipase 19 U/L (8-78); Magnesium 2.2 mg/dL (1.6-2.6); Potassium 4.7 mmol/L (3.3-5.1); Sodium 139 mmol/L (135-145); Total Protein 7.6 g/dL (6.5-8.0)
[2024-07-06 13:26] LABS: Troponin-I High Sensitivity 5.5 ng/L (<3.5-17.0)
--- NOTE | 2024-07-06 20:18 | PC.NURSE ---
pt from lobby, assume care of pt at this time
[2024-07-06 21:55] LABS: Appearance Urine Cloudy; Color Urine Yellow; Glucose Urine UA Negative (Negative); Leukocyte Esterase Urine Moderate (2+) (Negative); Nitrite Urine Positive (Negative); UMIC TRIGGER UACC YES; Urine Blood Small (1+) (Negative); Urine Ketones Negative (Negative); Urine Protein Negative (Neg-Trace)
--- NOTE | 2024-07-06 22:14 | PC.NURSE ---
pt fr om home, with c/o of AMS, pt doesn't know where she is, or why she is here, Pt has told several different stories, about why she is here, and where she came from, son at bedside
[2024-07-06 22:20] LABS: Bacteria Urine 4+ (None Seen); Hyaline Casts Urine 0-2 /LPF (0-2); RBC Urine 0-2 /HPF (0-2); Squamous Epithelial Cell Urine 0-2 /HPF (0-2); UACC Culture Trigger YES; WBC Urine >50 /HPF (0-5)
--- NOTE | 2024-07-06 23:29 | PC.NURSE ---
provider in to see pt
--- NOTE | 2024-07-06 23:55 | PC.NURSE ---
pt changed, and cleaned up, pt had small bm,, new breif placed on pt. Gown placed on pt
[2024-07-07 00:48] VITALS: BP 156/79; PULSE 68; RESP 18; TEMP 36.9; O2SAT 98
--- NOTE | 2024-07-07 00:48 | PC.NURSE ---
with the assist of a Son lift, pt placed back into her w/c, with son at side
== END 2024-07-07 00:50 | disposition home or self-care (01) ==
PROVIDERS: Physician Assistant; Emergency Provider Internal Medicine; PCP Internal Medicine
DX: F03.90 Unspecified dementia, unspecified severity, without behavioral disturbance, psychotic disturbance, mood disturbance, and anxiety (principal); I10 Essential (primary) hypertension; E78.5 Hyperlipidemia, unspecified; I48.0 Paroxysmal atrial fibrillation; Z79.01 Long term (current) use of anticoagulants; Z86.73 Personal history of transient ischemic attack (TIA), and cerebral infarction without residual deficits; Z79.899 Other long term (current) drug therapy
CPT/HCPCS: 36415; 51701; 80053; 81001; 83690; 83735; 84484; 85025; 85610; 87086; 87088; 87186; 93005; 99283; 99284

== ENCOUNTER 2024-10-18 15:48 | Inpatient (IN) | payer MEDICARE, SELFPAY ==
--- NOTE | ~2024-10-18 | XR_ITS ---
CLINICAL HISTORY: cp 1 view chest x-ray Comparison: CR/SR - XR CHEST 2V - 05/30/24 19:58 EDT Findings: No consolidation or effusion. Normal heart size. Tortuous aorta. No acute fracture. IMPRESSION: 1. No acute findings. This document has been electronically signed by: Kinza Lai MD on 10/18/2024 18:05:14
--- NOTE | ~2024-10-18 | CT_ITS ---
CLINICAL HISTORY: Lethargy CT head without contrast Comparison: Head CT from 05/14/2024 Findings: No acute intracranial hemorrhage. No hydrocephalus accounting for generalized volume loss. White matter pathology redemonstrated and nonspecific. Findings of small-vessel ischemic disease are considered most likely. No midline shift. Mucosal thickening paranasal sinuses. Imaged mastoid air cells are well aerated accounting for motion artifacts. No acute skull fracture, accounting for motion artifacts. Previous cataract procedure changes again noted. IMPRESSION: No acute intracranial abnormality by CT and no significant change when compared to 05/14/2024 This document has been electronically signed by: Bernardo Latif MD on 10/19/2024 02:42:22
--- NOTE | ~2024-10-18 | CT_ITS ---
CLINICAL HISTORY: Bandemia unsure the exact cause CT abdomen and pelvis with contrast Comparison: CT/AK/SR - CT ABDOMEN PELVIS W IV CON - 08/14/23 18:13 EST Findings: Atelectatic changes within the posterior aspects of the bilateral lower lobes. Unremarkable abdominal organs. Prior cholecystectomy. Unremarkable gallbladder and solid organs. No urolithiasis. There is diastasis of rectus musculature. There is colonic diverticulosis without diverticulitis. No bowel edema or dilatation. 3 cm left ovarian cyst without change. Pelvic contents are otherwise unremarkable. The appendix is normal. Prior vertebroplasty at L2 and L3 and osteoporotic type fracture involving the superior endplate of L3, without change. No acute fracture. IMPRESSION: No acute abdominal disease. This document has been electronically signed by: Kinza Lai MD on 10/18/2024 20:58:18
[2024-10-18 16:08] VITALS: BP 124/59; BP 156/92; PULSE 115; PULSE 93; RESP 16; TEMP 37.2; O2SAT 94; BMI 35.8
--- NOTE | 2024-10-18 16:23 | PC.NURSE ---
Pt comes to ED today via EMS for concerns by KINESIOTHERAPIST and Family for increased lethargy. Spoke with Pts son (Horacio--HCP) who reports Pts lies with him. Today Pt woke and ate breakfast then proceeded to sleep all day which is unlike her. Pt also was noted to be more confused than usual and yelling out inappropriately. Horacio reports a fever at home of 100.1 and was given Tylenol abut an hour prior to arrival. Horacio would like to be called with updates [facility] @ [phone] On arrival Pt is alert, calm, and cooperative. A&Ox1 Skin is warm and dry Breaths are unlabored. Speech is clear. Pt able to answer yes and no questions but often makes unrelated statements. VSS, low grade fever at this time. Awaiting orders.
[2024-10-18 16:27] LABS: Glucose, Whole Blood 132 mg/dL (60-115)
--- NOTE | 2024-10-18 17:05 | ECG_ITS ---
Test Reason : SOB Blood Pressure : */* mmHG Vent. Rate : 94 BPM Atrial Rate : 94 BPM P-R Int : 152 ms QRS Dur : 90 ms QT Int : 390 ms P-R-T Axes : * 10 41 degrees QTcB Int : 487 ms Sinus rhythm with marked sinus arrhythmia with Premature atrial complexes Otherwise normal ECG When compared with ECG of 06-Jul-2024 12:34, Premature atrial complexes are now Present Nonspecific T wave abnormality now evident in Inferior leads Nonspecific T wave abnormality now evident in Lateral leads Referred By: Meagan Mcgraw Electronically Signed By: Sunil Sykes
--- NOTE | 2024-10-18 17:09 | ED_ITS ---
HPI - Altered Mental Status General Chief Complaint: Altered Mental Status Stated Complaint: LETHARGY HX OF DEMENTIA PER EMS Time Seen by Provider: 10/18/24 16:30 History of Present Illness HPI narrative: Patient is a 84-year-old female with a history of dementia. Presented today with having increasing lethargy weakness generalized malaise. More confused than usual. Family noted a fever at home of 100. Tylenol was given prior to arrival. Sent in for further evaluation. History of UTIs in the past. Vaccinated for COVID at 1 point. No upper respiratory symptoms noted. Related Data Home Medications ?Medication ?Instructions ?Recorded ?Confirmed apixaban 5 mg tablet (Eliquis) 5 mg PO BID 01/06/24 05/15/24 atorvastatin 10 mg tablet 10 mg PO BEDTIME 01/06/24 06/25/24 cholecalciferol (vitamin D3) 25 25 mcg PO DAILY 01/06/24 06/25/24 mcg (1,000 unit) tablet ferrous sulfate 324 mg (65 mg 324 mg PO DAILY 01/06/24 06/25/24 iron) tablet,delayed release gabapentin 100 mg capsule 100 mg PO TID 01/06/24 06/25/24 memantine 5 mg tablet 5 mg PO BID 01/06/24 06/25/24 metoprolol succinate 25 mg 25 mg PO DAILY 01/06/24 06/25/24 tablet,extended release 24 hr mirabegron 50 mg tablet,extended 50 mg PO DAILY 01/06/24 06/25/24 release 24 hr (Myrbetriq) multivitamin 1 tab PO DAILY 01/06/24 06/25/24 acetaminophen 500 mg tablet 1,000 mg PO TID 01/16/24 06/25/24 docusate sodium 100 mg tablet 100 mg PO BID 01/16/24 06/25/24 sennosides 8.6 mg tablet (senna) 8.6 mg PO BEDTIME 01/16/24 06/25/24 lisinopril 5 mg tablet 5 mg PO DAILY 05/14/24 06/25/24 silver sulfadiazine 1 % topical 1 appl topical BID PRN Rash 05/14/24 06/25/24 cream (SSD) Previous Rx's ?Medication ?Instructions ?Recorded cefuroxime axetil 500 mg tablet 500 mg PO BID #6 tabs 08/12/24 Allergies Allergy/AdvReac Type Severity Reaction Status Date / Time gentamicin [GENTAMICIN] Allergy Intermediate SWELLING Verified 10/18/24 16:14 sulfamethoxazole Allergy Intermediate RASH Verified 10/18/24 16:14 [From BACTRIM] trimethoprim [From BACTRIM] Allergy Intermediate RASH Verified 10/18/24 16:14 Review of Systems 2 Review of Systems: Positive fever positive generalized malaise PMFSH Past Medical History Attestation statement: The following information was validated with the patient. Medical History Dementia with behavioral problem Delirium due to another medical condition PAD (peripheral artery disease) Dementia Paroxysmal atrial fibrillation Peripheral neuropathy TIA (transient ischemic attack) Foot drop Carotid artery stenosis Afib Hyperlipidemia Anemia Hypertension Surgical History S/P aortogram with runoff H/O foot surgery History of bilateral knee replacement H/O tubal ligation History of cholecystectomy H/O endarterectomy Social History Social History Household Members: Unknown / Unable to assess Household Members Other:: pt states home with son and also states snf so unsure Housing: Unknown / Unable to assess Unable to assess alcohol history related to: Unable to respond Alcohol intake: former Comment: as per previous Patient Tobacco Use Status: Never used Tobacco Smoked in Last 30 Days: No Use of substances other than those prescribed or required for medical reasons: No Advance Directives: Yes Advance Directives on File: Yes Advance Directives Date on File: 01/13/24 Do you have a plan to hurt others: No Plan service: No Physical Exam ED Vital Signs: Vital Signs - 24 hr 10/18/24 16:08 10/18/24 17:41 10/18/24 17:56 Temperature 99 F 99.4 F 98.3 F Pulse Rate 93 83 Respiratory Rate 16 16 Blood Pressure 124/59 L 128/57 L Pulse Oximetry 94 92 Oxygen Delivery Method Room Air Room Air 10/18/24 20:19 Temperature 98.0 F Pulse Rate 84 Respiratory Rate 16 Blood Pressure 133/58 L Pulse Oximetry 95 Oxygen Delivery Method Room Air BMI result Body Mass Index 35.8 Appearance: Alert. Oriented to self and place. No acute distress. Eyes: Pupils equal, round and reactive to light. ENT: Pharynx normal. Neck: Normal inspection. Neck supple. No lymph nodes noted. No crepitus CVS: Normal heart rate and rhythm. Pulses normal. Normal S1 and S2 Respiratory: No respiratory distress. Breath sounds normal. No Wheezing. No rales Abdomen: Soft and nontender. No rigidity. No distention. good BS x4 Skin: Skin warm and dry. Normal skin color. Normal skin turgor. Extremities: No lower extremity edema. Neurovascular intact to all extremities. No Lacerations. No Rash Neuro: Oriented to self and place. No motor deficit. No sensory deficit. Moving all extermities. No slurred speech Medications Administered Discontinued Medications Generic Name Dose Route Start Last Admin Trade Name Freq PRN Reason Stop Dose Admin Ceftriaxone Sodium 1 gm 10/18/24 18:36 10/18/24 19:43 Ceftriaxone Sodium 1 Gm Vial IVPUSH 10/18/24 18:37 1 gm ONCE ONE Administration Sodium Chloride 500 mls @ 999 mls/hr 10/18/24 17:15 10/18/24 19:47 Ns IV 10/18/24 17:45 Infused .Q31M MARKEL Infusion Sodium Chloride 1,000 mls @ 999 mls/hr 10/18/24 18:45 10/18/24 19:50 Ns IV 10/18/24 19:45 Not Given .Q1H1M MARKEL Sodium Chloride 2,925 mls @ 2,925 mls/hr 10/18/24 18:37 10/18/24 19:43 Ns 30 ml/kg infuse over 1 hr (2925 ml) 10/18/24 19:36 2,925 mls/hr IV Administration .Q1H STA Iohexol 100 ml 10/18/24 19:27 10/18/24 19:28 Iohexol 350 Mg/Ml 100 Ml Infus..Btl IV 10/18/24 19:28 85 ml ONCE ONE Administration Medical Decision Making Medical Decision Making MDM Narrative: Patient 84-year-old female presented today with having more lethargy then baseline. Patient baseline has a history of dementia. Her urine showed no evidence of infection. Patient's chest x-ray showed no evidence of pneumonia. COVID flu RSV were all negative. Patient's labs showed a white count of 12. But showed a bandemia of 25%. Question etiology. Patient has no neck pain no headache to suggest patient has meningitis. On reviewing patient's record had something similar in the past. At that time they thought was secondary to a partially treated urinary tract infection. Patient's urine today was grossly negative. Lactate is 1.5 there is no evidence for severe sepsis. Nevertheless antibiotic was given. Patient will require admission for further monitoring. A CT scan of the abdomen was done. My interpretation of patient's CT scan was grossly negative. I review radiology's reading which was the same. Patient currently in stable condition. Case consulted by the hospitalist team. Differential Diagnosis Differential Diagnoses: The differential diagnosis associated with the presentation includes Urinary tract infection, pneumonia, viral infection, blood infection Admission/Observation Consideration of admission/observation: Escalation of care including admission/observation considered Consult Healthcare Provider Management of the patient was discussed with: Hospitalist Lab Data MDM Lab Attestation statement: I reviewed the patient's lab results. 10/18/24 17:33 10/18/24 17:33 Labs: Lab Results 10/18/24 10/18/24 10/18/24 Range/Units 16:23 17:33 18:54 WBC 12.0 H (4.8-10.8) X10*3/uL RBC 3.72 L (4.20-5.50) X10*6/uL Hgb 12.1 (12.0-16.0) g/dl Hct 35.5 L (37.0-47.0) % MCV 95.4 (80.0-98.0) fL MCH 32.5 (27.0-33.0) pg MCHC 34.1 (31.0-35.0) g/dl RDW 12.8 (11.0-16.0) % Plt Count 194 (160-400) X10*3/uL MPV 11.1 (9.4-12.3) fL Immature Gran % (Auto) Cancelled Neut % (Auto) Cancelled Lymph % (Auto) Cancelled Brewster % (Auto) Cancelled Eos % (Auto) Cancelled Baso % (Auto) Cancelled Lymph # (Auto) Cancelled Brewster # (Auto) Cancelled Eos # (Auto) Cancelled Baso # (Auto) Cancelled Abs Immat Gran (auto) Cancelled Absolute Neuts (auto) Cancelled Absolute Nucleated RBC 0.000 (0.0-0.012) X10*3/uL Nucleated RBC % (auto) 0.0 (0.0-0.2) /100WBC Neutrophils % (Manual) 71 (45-73) % Band Neutrophils % 25 H (3-5) % Lymphocytes % (Manual) 2 L (20-40) % Monocytes % (Manual) 2 (2-11) % Abs Neuts (Manual) 11.5 H (2.0-8.3) X10*3/uL Lymphocytes # (Manual) 0.2 L (1.2-4.9) X10*3/uL Monocytes # (Manual) 0.2 (0.1-1.2) X10*3/uL Toxic Granulation PRESENT Toxic Vacuolation PRESENT Platelet Estimate NORMAL (NORMAL) Plt Morphology Comment NORMAL RBC Morphology NORMAL Smear Tech's Comments MANUAL DIFF Sodium 140 (135-145) mmol/L Potassium 4.3 (3.3-5.1) mmol/L Chloride 107 (96-108) mmol/L Carbon Dioxide 24 (22-29) mmol/L Anion Gap 13 (12-20) BUN 31 H (9-16) mg/dL Creatinine 0.67 (0.5-1.4) mg/dL Estim Creat Clear Calc 72.2 Estimated GFR > 60 POC Glucose 132 H (60-115) mg/dL Random Glucose 134 H (60-115) mg/dL Lactic Acid 1.5 (0.5-2.0) mmol/L Calcium 9.4 D (8.4-10.2) mg/dL Urine Color Dark Yellow Urine Appearance Clear Urine pH 5.5 (5.0-9.0) Ur Specific Mason 1.020 (1.005-1.025) Urine Protein 30 (1+) H (Neg-Trace) mg/dL Urine Glucose (UA) Negative (Negative) mg/dL Urine Ketones Negative (Negative) mg/dL Urine Blood Negative (Negative) Urine Nitrite Negative (Negative) Ur Leukocyte Esterase Small (1+) H (Negative) Urine RBC 0-2 (0-2) /HPF Urine WBC 0-5 (0-5) /HPF Ur Squamous Epith Cells 0-2 (0-2) /HPF Urine Bacteria None Seen (None Seen) Hyaline Casts 3-5 (0-2) /LPF Influenza Type A (PCR) NEGATIVE (Negative) Influenza Type B (PCR) NEGATIVE (Negative) RSV RNA Qual (PCR) NEGATIVE (Negative) SARS-CoV-2 RNA (RT-PCR) NEGATIVE (Negative) 10/18/24 Range/Units 20:12 WBC (4.8-10.8) X10*3/uL RBC (4.20-5.50) X10*6/uL Hgb (12.0-16.0) g/dl Hct (37.0-47.0) % MCV (80.0-98.0) fL MCH (27.0-33.0) pg MCHC (31.0-35.0) g/dl RDW (11.0-16.0) % Plt Count (160-400) X10*3/uL MPV (9.4-12.3) fL Immature Gran % (Auto) Neut % (Auto) Lymph % (Auto) Brewster % (Auto) Eos % (Auto) Baso % (Auto) Lymph # (Auto) Brewster # (Auto) Eos # (Auto) Baso # (Auto) Abs Immat Gran (auto) Absolute Neuts (auto) Absolute Nucleated RBC (0.0-0.012) X10*3/uL Nucleated RBC % (auto) (0.0-0.2) /100WBC Neutrophils % (Manual) (45-73) % Band Neutrophils % (3-5) % Lymphocytes % (Manual) (20-40) % Monocytes % (Manual) (2-11) % Abs Neuts (Manual) (2.0-8.3) X10*3/uL Lymphocytes # (Manual) (1.2-4.9) X10*3/uL Monocytes # (Manual) (0.1-1.2) X10*3/uL Toxic Granulation Toxic Vacuolation Platelet Estimate (NORMAL) Plt Morphology Comment RBC Morphology Smear Tech's Comments Sodium (135-145) mmol/L Potassium (3.3-5.1) mmol/L Chloride (96-108) mmol/L Carbon Dioxide (22-29) mmol/L Anion Gap (12-20) BUN (9-16) mg/dL Creatinine (0.5-1.4) mg/dL Estim Creat Clear Calc Estimated GFR POC Glucose 124 H (60-115) mg/dL Random Glucose (60-115) mg/dL Lactic Acid (0.5-2.0) mmol/L Calcium (8.4-10.2) mg/dL Urine Color Urine Appearance Urine pH (5.0-9.0) Ur Specific Mason (1.005-1.025) Urine Protein (Neg-Trace) mg/dL Urine Glucose (UA) (Negative) mg/dL Urine Ketones (Negative) mg/dL Urine Blood (Negative) Urine Nitrite (Negative) Ur Leukocyte Esterase (Negative) Urine RBC (0-2) /HPF Urine WBC (0-5) /HPF Ur Squamous Epith Cells (0-2) /HPF Urine Bacteria (None Seen) Hyaline Casts (0-2) /LPF Influenza Type A (PCR) (Negative) Influenza Type B (PCR) (Negative) RSV RNA Qual (PCR) (Negative) SARS-CoV-2 RNA (RT-PCR) (Negative) Independent Interpretation I performed an independent interpretation of an: Plain X-Ray (Chest x-ray was grossly negative for any acute evidence of pneumonia) and CT Scan (CT scan of the abdomen pelvis was grossly negative) Radiology Impression Discussion of test interpretation with radiology: I have reviewed the radiologist's reading. Independent Historian Clinical information obtained from an independent historian. History obtained from or confirmed by: Other (Patient aid) External Record Review External record reviewed: Inpatient record Chronic Conditions History of having bandemia, depression Social Determinants Patient?s care significantly limited by Social Determinants of Health including: Problems related to primary support group and Other Social Determinant of Health Discharge Plan Discharge Clinical Impression: Bandemia Patient Disposition: Admitted As Inpatient Prescriptions: No Action atorvastatin 10 mg tablet 10 mg PO BEDTIME gabapentin 100 mg capsule 100 mg PO TID metoprolol succinate 25 mg tablet extended release 24 hr 25 mg PO DAILY memantine 5 mg tablet 5 mg PO BID cholecalciferol (vitamin D3) 25 mcg (1,000 unit) tablet 25 mcg PO DAILY ferrous sulfate 324 mg (65 mg iron) tablet,delayed release (DR/EC) 324 mg PO DAILY mirabegron [Myrbetriq] 50 mg tablet extended release 24 hr 50 mg PO DAILY Eliquis 5 mg tablet 5 mg PO BID multivitamin Tablet 1 tab PO DAILY sennosides [senna] 8.6 mg Tablet 8.6 mg PO BEDTIME Rx Instructions: HOLD FOR LOOSE STOOL acetaminophen 500 mg Tablet 1,000 mg PO TID docusate sodium 100 mg Tablet 100 mg PO BID silver sulfadiazine [SSD] 1 % cream 1 appl topical BID PRN (Reason: Rash) lisinopril 5 mg tablet 5 mg PO DAILY cefuroxime axetil 500 mg tablet 500 mg PO BID Qty: 6 0RF Print Language: Wolof
[2024-10-18] MEDS: 0.9 % Sodium Chloride 500 ML 999 ML IV (17:36)
[2024-10-18 17:39] LABS: Hematocrit 35.5 % (37.0-47.0); Hemoglobin 12.1 g/dl (12.0-16.0); Mean Corpuscular HGB Conc 34.1 g/dl (31.0-35.0); Mean Corpuscular Hemoglobin 32.5 pg (27.0-33.0); Mean Corpuscular Volume 95.4 fL (80.0-98.0); Mean Platelet Volume 11.1 fL (9.4-12.3); Platelet Count 194 X10*3/uL (160-400); Red Blood Count 3.72 X10*6/uL (4.20-5.50); Red Cell Distribution Width 12.8 % (11.0-16.0)
[2024-10-18 17:41] VITALS: TEMP 37.4
[2024-10-18 17:56] VITALS: BP 128/57; PULSE 83; RESP 16; TEMP 36.8; O2SAT 92
[2024-10-18 18:03] LABS: Lactic Acid 1.5 mmol/L (0.5-2.0)
[2024-10-18 18:04] LABS: Anion Gap 13 (12-20); Blood Urea Nitrogen 31 mg/dL (9-16); Calcium 9.4 mg/dL (8.4-10.2); Carbon Dioxide 24 mmol/L (22-29); Chloride 107 mmol/L (96-108); Creatinine Clr Calc Pharmacy 72.2; Estimated Glomerular Filt Rate > 60; Glucose Random 134 mg/dL (60-115); Potassium 4.3 mmol/L (3.3-5.1); Sodium 140 mmol/L (135-145)
[2024-10-18 18:14] LABS: SLIDE REVIEW MANUAL DIFF
[2024-10-18 18:23] LABS: Influenza A PCR NEGATIVE (Negative); Influenza B PCR NEGATIVE (Negative); Resp Syncy Virus RNA Qual PCR NEGATIVE (Negative); SARS COV2 PCR INHOUSE NEGATIVE (Negative)
[2024-10-18 18:31] LABS: Neutrophils Percent Manual 71 % (45-73)
[2024-10-18 18:33] LABS: Band Neutrophils Percent 25 % (3-5); Lymphocytes Absolute Manual 0.2 X10*3/uL (1.2-4.9); Lymphocytes Percent Manual 2 % (20-40); Monocytes Absolute Manual 0.2 X10*3/uL (0.1-1.2); Monocytes Percent Manual 2 % (2-11); Neutrophils Absolute Manual 11.5 X10*3/uL (2.0-8.3)
[2024-10-18 18:34] LABS: Platelet Estimate NORMAL (NORMAL); RBC Morphology NORMAL; Toxic Granulation PRESENT; Toxic Vacuolation PRESENT
[2024-10-18 18:35] LABS: Platelet Morphology Comment NORMAL
[2024-10-18 19:00] LABS: Appearance Urine Clear; Color Urine Dark Yellow; Glucose Urine UA Negative (Negative); Leukocyte Esterase Urine Small (1+) (Negative); Nitrite Urine Negative (Negative); PH 5.5 (5.0-9.0); UMIC TRIGGER UACC YES; Urine Blood Negative (Negative); Urine Ketones Negative (Negative); Urine Protein 30 (1+) mg/dL (Neg-Trace)
[2024-10-18 19:12] LABS: Bacteria Urine None Seen (None Seen); RBC Urine 0-2 /HPF (0-2); Squamous Epithelial Cell Urine 0-2 /HPF (0-2); UACC Culture Trigger YES; WBC Urine 0-5 /HPF (0-5)
--- NOTE | 2024-10-18 19:15 | PC.NURSE ---
Addendum entered by Margaret Whitaker RN 10/18/24 19:18: BC / abx / delayed d/t patient going to CT. Original Note: Assumed care of this patient at 1900, Patient had sepsis abx & fluids ordered, no BC ordered, previous BRADEN Patel clarified w/ provider if BC were needed. BC now ordered to be drawn ROB.
[2024-10-18] MEDS: iohexoL 350 MG/ML 100 ML INFUS..BTL IV (19:28)
[2024-10-18] MEDS: cefTRIAXone sodium 1 GM VIAL IVPUSH (19:43)
[2024-10-18] MEDS: SODIUM CHLORIDE 2925 ML IV (19:43)
--- NOTE | 2024-10-18 19:50 | PC.NURSE ---
Pt had 30mg/kg bolus order + 1L NS, confirmed with provider that they did want patient to get almost 4 Liters. Provider verbal order to not give the last 1L, just give the 30mg/kg bolus. Fluids running now.
[2024-10-18 20:17] LABS: Glucose, Whole Blood 124 mg/dL (60-115)
[2024-10-18 20:19] VITALS: BP 133/58; PULSE 84; RESP 16; TEMP 36.7; O2SAT 95
--- NOTE | 2024-10-18 21:29 | PC.NURSE ---
Spoke to HCP Horacio, informed him patient will be staying at least overnight for admission, will most likely be in ER as many patients are waiting for beds.
[2024-10-18 22:45] VITALS: BP 144/65; PULSE 79; RESP 18
[2024-10-18 23:09] VITALS: BP 152/71; PULSE 78; RESP 16
[2024-10-18] MEDS: Piperacillin Sodium/Tazobactam 3.375 GM in 0.9 % Sodium Chloride 50 ML IV (23:18)
--- NOTE | 2024-10-18 23:18 | P.HPHOSP_ITS ---
History of Present Illness Date of Service: 10/18/24 Attending physician on admission: Gemma Gonzales Chief Complaint: lethargy Patient is an 84-year-old female with a past medical history significant for alzheimers dementia, pafib, htn, hld, tia, carotid stenosis, pvd, who presented to the ED today due to lethargy reported by the patient's family and ASSISTANT PROFESSOR. She has dementia and is alert and oriented x2 at baseline. She reports nausea and vomiting today but is unable to give me any information regarding this including frequency or description if any blood or bilious vomiting. She denies any blood in the stool, diarrhea, headache, neck pain or sensitivity to light. She also denies any urinary symptoms including frequency, urgency or dysuria. She has not have a cough or any upper respiratory symptoms. There was a question of a subjective fever around 100. Patient's nurse also reports that the patient was calling out last night at her nursing facility which is abnormal behavior for her. Review of Systems 2 Review of Systems: Patient very lethargic, currently sleeping but will answer questions with yes or no. She kept her eyes closed through the history and exam. Yes Unobtainable due to mental condition [facility] Medical History Dementia with behavioral problem Delirium due to another medical condition PAD (peripheral artery disease) Dementia Paroxysmal atrial fibrillation Peripheral neuropathy TIA (transient ischemic attack) Foot drop Carotid artery stenosis Afib Hyperlipidemia Anemia Hypertension Surgical History S/P aortogram with runoff H/O foot surgery History of bilateral knee replacement H/O tubal ligation History of cholecystectomy H/O endarterectomy Social History Household Members: Unknown / Unable to assess Household Members Other:: pt states home with son and also states snf so unsure Housing: Unknown / Unable to assess Unable to assess alcohol history related to: Unable to respond Alcohol intake: former Comment: as per previous Patient Tobacco Use Status: Never used Tobacco Smoked in Last 30 Days: No Use of substances other than those prescribed or required for medical reasons: No Advance Directives: Yes Advance Directives on File: Yes Advance Directives Date on File: 01/13/24 Do you have a plan to hurt others: No Plan service: No Meds Allergies Allergy/AdvReac Type Severity Reaction Status Date / Time gentamicin [GENTAMICIN] Allergy Intermediate SWELLING Verified 10/18/24 16:14 sulfamethoxazole Allergy Intermediate RASH Verified 10/18/24 16:14 [From BACTRIM] trimethoprim [From BACTRIM] Allergy Intermediate RASH Verified 10/18/24 16:14 Active Medications: Current Medications Piperacillin Sod/Tazobactam (Sod 3.375 gm/ Sodium Chloride) 50 mls @ 100 mls/hr IV Q6H MARKEL Vancomycin HCl 1,250 mg/ (Sodium Chloride) 250 mls @ 166.667 mls/hr IV Q2H MARKEL Stop: 10/19/24 02:44 Pharmacy Consult (Consult Rx Vancomycin Dosing) 1 each MISCELLANE DAILY PRN PRN Reason: Consult order Home Medications ?Medication ?Instructions ?Recorded ?Confirmed ?Last Taken ?Type apixaban 5 mg tablet (Eliquis) 5 mg PO BID 01/06/24 05/15/24 05/14/24 08:30 History atorvastatin 10 mg tablet 10 mg PO BEDTIME 01/06/24 06/25/24 05/13/24 History cholecalciferol (vitamin D3) 25 25 mcg PO DAILY 01/06/24 06/25/24 05/14/24 08:30 History mcg (1,000 unit) tablet ferrous sulfate 324 mg (65 mg 324 mg PO DAILY 01/06/24 06/25/24 05/14/24 08:30 History iron) tablet,delayed release gabapentin 100 mg capsule 100 mg PO TID 01/06/24 06/25/24 05/14/24 08:30 History memantine 5 mg tablet 5 mg PO BID 01/06/24 06/25/24 05/14/24 08:30 History metoprolol succinate 25 mg 25 mg PO DAILY 01/06/24 06/25/24 05/14/24 08:30 History tablet,extended release 24 hr mirabegron 50 mg tablet,extended 50 mg PO DAILY 01/06/24 06/25/24 05/14/24 08:30 History release 24 hr (Myrbetriq) multivitamin 1 tab PO DAILY 01/06/24 06/25/24 05/14/24 08:30 History acetaminophen 500 mg tablet 1,000 mg PO TID 01/16/24 06/25/24 05/14/24 08:30 History docusate sodium 100 mg tablet 100 mg PO BID 01/16/24 06/25/24 05/14/24 08:30 History sennosides 8.6 mg tablet (senna) 8.6 mg PO BEDTIME 01/16/24 06/25/24 05/13/24 History lisinopril 5 mg tablet 5 mg PO DAILY 05/14/24 06/25/24 05/14/24 08:30 History silver sulfadiazine 1 % topical 1 appl topical BID PRN Rash 05/14/24 06/25/24 05/14/24 08:30 History cream (SSD) Physical Exam 2 Vital Signs and Narrative: Vital Signs: Last Vital Signs Temp 98.0 F 10/18/24 20:19 Pulse 78 10/18/24 23:09 Resp 16 10/18/24 23:09 BP 152/71 H 10/18/24 23:09 Pulse Ox 95 10/18/24 20:19 O2 Del Method Room Air 10/18/24 20:19 BMI result Body Mass Index 35.8 General: Eyes closed through entire exam, we will respond to yes no questions with delayed response. Oriented to person and place Resp: CTA bilaterally CVS: S1, S2, RRR GI: +BS, NT, no distention Skin: Warm, dry Neuro: Pupils equal round and reactive to light, patient not cooperative for remainder of exam Extremities: No lower extremity edema Psych: Appropriate affect Results Labs 10/18/24 17:33 10/18/24 17:33 Labs: Laboratory Results - last 24 hr 10/18/24 10/18/24 10/18/24 16:23 17:33 18:54 MCV 95.4 MCH 32.5 MCHC 34.1 RDW 12.8 Plt Count 194 MPV 11.1 Immature Gran % (Auto) Cancelled Neut % (Auto) Cancelled Lymph % (Auto) Cancelled Bennett % (Auto) Cancelled Eos % (Auto) Cancelled Baso % (Auto) Cancelled Lymph # (Auto) Cancelled Bennett # (Auto) Cancelled Eos # (Auto) Cancelled Baso # (Auto) Cancelled Abs Immat Gran (auto) Cancelled Absolute Neuts (auto) Cancelled Absolute Nucleated RBC 0.000 Nucleated RBC % (auto) 0.0 Neutrophils % (Manual) 71 Band Neutrophils % 25 H Lymphocytes % (Manual) 2 L Monocytes % (Manual) 2 Abs Neuts (Manual) 11.5 H Lymphocytes # (Manual) 0.2 L Monocytes # (Manual) 0.2 Toxic Granulation PRESENT Toxic Vacuolation PRESENT Platelet Estimate NORMAL Plt Morphology Comment NORMAL RBC Morphology NORMAL Smear Tech's Comments MANUAL DIFF Anion Gap 13 Estim Creat Clear Calc 72.2 Estimated GFR > 60 POC Glucose 132 H Random Glucose 134 H Lactic Acid 1.5 Calcium 9.4 D Urine Color Dark Yellow Urine Appearance Clear Urine pH 5.5 Ur Specific Parkin 1.020 Urine Protein 30 (1+) H Urine Glucose (UA) Negative Urine Ketones Negative Urine Blood Negative Urine Nitrite Negative Ur Leukocyte Esterase Small (1+) H Urine RBC 0-2 Urine WBC 0-5 Ur Squamous Epith Cells 0-2 Urine Bacteria None Seen Hyaline Casts 3-5 Influenza Type A (PCR) NEGATIVE Influenza Type B (PCR) NEGATIVE RSV RNA Qual (PCR) NEGATIVE SARS-CoV-2 RNA (RT-PCR) NEGATIVE 10/18/24 20:12 MCV MCH MCHC RDW Plt Count MPV Immature Gran % (Auto) Neut % (Auto) Lymph % (Auto) Bennett % (Auto) Eos % (Auto) Baso % (Auto) Lymph # (Auto) Bennett # (Auto) Eos # (Auto) Baso # (Auto) Abs Immat Gran (auto) Absolute Neuts (auto) Absolute Nucleated RBC Nucleated RBC % (auto) Neutrophils % (Manual) Band Neutrophils % Lymphocytes % (Manual) Monocytes % (Manual) Abs Neuts (Manual) Lymphocytes # (Manual) Monocytes # (Manual) Toxic Granulation Toxic Vacuolation Platelet Estimate Plt Morphology Comment RBC Morphology Smear Tech's Comments Anion Gap Estim Creat Clear Calc Estimated GFR POC Glucose 124 H Random Glucose Lactic Acid Calcium Urine Color Urine Appearance Urine pH Ur Specific Parkin Urine Protein Urine Glucose (UA) Urine Ketones Urine Blood Urine Nitrite Ur Leukocyte Esterase Urine RBC Urine WBC Ur Squamous Epith Cells Urine Bacteria Hyaline Casts Influenza Type A (PCR) Influenza Type B (PCR) RSV RNA Qual (PCR) SARS-CoV-2 RNA (RT-PCR) Assessment and Plan (1) Sepsis: Status: Acute (2) Encephalopathy due to infection: Status: Acute (3) Obesity (BMI 30-39.9): Status: Chronic Plan Patient is an 84-year-old female with a past medical history significant for alzheimers dementia, pafib, htn, hld, tia, carotid stenosis, pvd, who presented to the ED today due to lethargy reported by the patient's family and ASSISTANT PROFESSOR. History is very difficult to obtain as patient will only respond to yes no questions with very delayed response, not confident if patient is giving accurate responses. Workup thus far has shown bandemia, mild tachycardia and elevated white count of 12.0. Chest CT negative, UA borderline positive, culture pending, chest x-ray negative, no signs of cellulitis or meningeal signs. She does have a history of confusion and lethargy with UTIs, recent admission this past May for same presentation. Sepsis and acute encephalopathy due to infection of unknown source, likely UTI - WBC 12.0, + bands, lactic acid normal, mild tachycardia initially, blood cultures x2 pending, not severe sepsis - chest x-ray negative - abdominopelvic CT negative - EKG with sinus arrhythmia and PACs - UA borderline positive, culture pending - head CT ordered however given patient has had IV contrast we will need to wait to obtain - check VBG now - NPO - aspiration precautions - IV fluids, LR 100ml/hr. Received fluid bolus in ED. - start vancomycin and Zosyn for broad-spectrum coverage until infection better identified Alzheimer's dementia - continue home meds Paroxysmal AFib - continue Eliquis and metoprolol HTN - continue home meds Presumed full code VTE prophylaxis: Eliquis Patient with sepsis and acute encephalopathy due to infection of unknown source, likely UTI, requiring admission for IV antibiotics and further evaluation for at least 2 midnights stay. Quality Stroke Does the patient have a stroke diagnosis?: No VTE Prior VTE?: No VTE Risk Level:: Medical - moderate - high VTE Device Contraindication: Treatment Not Indicated VTE Drug Contraindication: N/A - Med Ordered
--- NOTE | 2024-10-18 23:45 | PC.NURSE ---
This commercial underwriter assumed care of this Pt at 2300. Pt appears to be sleeping at this time, equal, non labored respirations.
[2024-10-18 23:47] LABS: Venous Blood Gas Refer to POC result
[2024-10-19] MEDS: 0.9 % Sodium Chloride Flush 3 ML SYRINGE IVFLUSH (00:11)
[2024-10-19] MEDS: vancomycin HCL 1,250 MG in 0.9 % Sodium Chloride 250 ML 166.67 MG IV (00:12)
[2024-10-19 00:16] VITALS: BP 159/66; PULSE 82; RESP 20; TEMP 36.6; O2SAT 94
[2024-10-19 00:29] LABS: VBG Base Excess 1.7 mmol/L; VBG HCO3 25 mmol/L (22-26); VBG pCO2 38 mmHg; VBG pH 7.43 (7.32-7.43); VBG pO2 53 mmHg
[2024-10-19] MEDS: Lactated Ringers 1,000 ML 100 ML IVCONT ×3 (01:59→23:21)
--- NOTE | 2024-10-19 02:00 | PC.NURSE ---
Addendum entered by Aditi La 10/19/24 07:46: Skin intact, Pt had duoderm to buttocks area. Addendum entered by Aditi La 10/19/24 07:44: Pt requesting PO fluids. Pt NPO, bedside nursing swallow eval done. Original Note: Pt awake, A&O to self, forgetful, needs multiple reminders. States this is the first day of my life, I don't know where I am . Pt incontinent of urine, incontinent care provided, Pt repositioned.
[2024-10-19] MEDS: vancomycin HCL 1,250 MG in 0.9 % Sodium Chloride 250 ML 166 MG IV (02:27)
[2024-10-19] MEDS: Piperacillin Sodium/Tazobactam 3.375 GM in 0.9 % Sodium Chloride 50 ML IV ×4 (05:17→23:19)
[2024-10-19 05:26] LABS: MANUAL DIFF FLAG NO
[2024-10-19 05:30] LABS: Basophils Percent Auto 0.4 % (0-2); Eosinophils Absolute Auto 0.1 X10*3/uL (0.0-0.4); Hematocrit 33.2 % (37.0-47.0); Hemoglobin 10.8 g/dl (12.0-16.0); Imm Gran Abs Auto 0.05 X10*3/uL (0.00-0.03); Imm Gran Pct Auto 0.5 % (0.0-0.4); Lymphocytes Absolute Auto 0.6 X10*3/uL (1.2-4.9); Lymphocytes Percent Auto 5.5 % (20-40); Mean Corpuscular HGB Conc 32.5 g/dl (31.0-35.0); Mean Corpuscular Volume 98.5 fL (80.0-98.0); Mean Platelet Volume 11.7 fL (9.4-12.3); Monocytes Absolute Auto 0.5 X10*3/uL (0.1-1.2); Monocytes Percent Auto 4.2 % (2-11); Neutrophils Absolute Auto 9.8 x10*3/uL (2.0-8.3); Neutrophils Percent Auto 88.4 % (45-73); Platelet Count 162 X10*3/uL (160-400); Red Blood Count 3.37 X10*6/uL (4.20-5.50); Red Cell Distribution Width 13.1 % (11.0-16.0); White Blood Count 11.1 X10*3/uL (4.8-10.8)
[2024-10-19 05:46] LABS: Anion Gap 11 (12-20); Blood Urea Nitrogen 21 mg/dL (9-16); Calcium 8.7 mg/dL (8.4-10.2); Carbon Dioxide 20 mmol/L (22-29); Chloride 113 mmol/L (96-108); Creatinine Clr Calc Pharmacy 94.9; Estimated Glomerular Filt Rate > 60; Glucose Random 103 mg/dL (60-115); Potassium 3.9 mmol/L (3.3-5.1); Sodium 140 mmol/L (135-145)
[2024-10-19 06:07] VITALS: BP 143/69; PULSE 80; RESP 16; TEMP 36.7; O2SAT 95
--- NOTE | 2024-10-19 07:15 | PC.NURSE ---
Report received from BRADEN Pennington
--- NOTE | 2024-10-19 07:59 | PHA.PROG ---
Admission Date/Time: October 18, 2024 23:32 Indication: sepsis Weight in k.5 kg Adjusted body weight in Kg: Peyton body weight in Kg: Obesity Dosing Indication % IBW: Serum Creatinine - Last 168 Hours 10/18/24 10/19/24 17:33 05:07 Creatinine 0.67 0.51 Estimated CrCl and GFR - Last 168 Hours 10/18/24 10/19/24 17:33 05:07 Estim Creat Clear Calc 72.2 94.9 Estimated GFR > 60 > 60 Vancomycin Loading Dose: 2500 Current Vancomycin Dosing Regimen: 1000 Q12h Vancomycin Monitoring using AUC goal of 400 - 600 range with trough as surrogate marker: 561 Date and Time for next Vancomycin Level to be drawn: Pharmacist Comments on Vancomycin Plan: Vancomycin dosing will take advantage of [employer] as a clinical decision support tool that uses Bayesian modeling to calculate individual patient's pharmacokinetic parameters and forecast the patient's drug concentration time course with the target goal AUC 24 range of 400 - 600 mg/L/hr.
[2024-10-19] MEDS: Apixaban 5 MG TABLET PO ×2 (09:07→20:43)
--- NOTE | 2024-10-19 09:08 | PC.NURSE ---
Pt. medicated per DEC. Checked for incontinence- dry. Denies complaints.
[2024-10-19 09:45] VITALS: BP 148/64; PULSE 74; RESP 16; O2SAT 96
--- NOTE | 2024-10-19 10:34 | HO.PM.IMPN ---
Subjective Subjective Date of Service: 10/19/24 Interval History: seen and examined this AM pleasantly confused -- knows shes at [facility] but requires redirection frequently reports urinary urgency Review of Systems Negative except HPI/interval history. Physical Exam Vital Signs: Vital Signs: Last Vital Signs Temp 98.0 F 10/19/24 06:07 Pulse 74 10/19/24 09:45 Resp 16 10/19/24 09:45 BP 148/64 H 10/19/24 09:45 Pulse Ox 96 10/19/24 09:45 O2 Del Method Room Air 10/19/24 09:45 BMI result Body Mass Index 35.8 Const: Other: General - no acute distress, appears comfortable; oriented to self and location, not situation Cardiovascular - regular rate and rhythm, S1-S2 Lungs - normal respiratory effort, clear to auscultation bilaterally, no wheezing Abdomen - soft, nontender, no rebound or guarding Extremities - no edema bilaterally Neuro - awake and alert, no focal deficits Objective Data Active Medications Acetaminophen (Acetaminophen 325 Mg Tablet) 975 mg PO Q6H PRN PRN Reason: Pain, Mild 1-3,fever,headache Apixaban (Apixaban 5 Mg Tablet) 5 mg PO BID [facility] Last Admin: 10/19/24 09:07 Dose: 5 mg Documented By: HALLIE Calcium Carbonate (Calcium Carbonate 750 Mg Tab.Chew) 750 mg PO Q4H PRN PRN Reason: Heartburn Piperacillin Sod/Tazobactam (Sod 3.375 gm/ Sodium Chloride) 50 mls @ 100 mls/hr IV Q6H [facility] Last Infusion: 10/19/24 06:00 Dose: Infused Documented By: OTONIEL Lactated Ringer's (Lr) 1,000 mls @ 100 mls/hr IVCONT .Q10H [facility] Last Admin: 10/19/24 09:07 Dose: 100 mls/hr Documented By: HALLIE Magnesium Hydroxide (Milk Of Magnesia 30 Ml Oral.Susp) 30 ml PO DAILY PRN PRN Reason: Constipation Melatonin (Melatonin 3 Mg Tablet) 6 mg PO BEDTIME PRN PRN Reason: Insomnia Ondansetron HCl (Ondansetron Hcl 4 Mg/2 Ml Vial) 4 mg IVPUSH Q8H PRN PRN Reason: Nausea and Vomiting Pharmacy Consult (Consult Rx Vancomycin Dosing) 1 each MISCELLANE DAILY PRN PRN Reason: Consult order Sodium Chloride (0.9 % Sodium Chloride Flush 3 Ml Syringe) 3 ml IVFLUSH QSHIFT [facility] Last Admin: 10/19/24 07:39 Dose: Not Given Documented By: HALLIE Non-Admin Reason: Previously Administered Labs 10/19/24 05:07 10/19/24 05:07 Labs: Laboratory Results - last 24 hr 10/18/24 10/18/24 10/18/24 16:23 17:33 18:54 MCV 95.4 MCH 32.5 MCHC 34.1 RDW 12.8 Plt Count 194 MPV 11.1 Immature Gran % (Auto) Cancelled Neut % (Auto) Cancelled Lymph % (Auto) Cancelled [place] % (Auto) Cancelled Eos % (Auto) Cancelled Baso % (Auto) Cancelled Lymph # (Auto) Cancelled [place] # (Auto) Cancelled Eos # (Auto) Cancelled Baso # (Auto) Cancelled Abs Immat Gran (auto) Cancelled Absolute Neuts (auto) Cancelled Absolute Nucleated RBC 0.000 Nucleated RBC % (auto) 0.0 Neutrophils % (Manual) 71 Band Neutrophils % 25 H Lymphocytes % (Manual) 2 L Monocytes % (Manual) 2 Abs Neuts (Manual) 11.5 H Lymphocytes # (Manual) 0.2 L Monocytes # (Manual) 0.2 Toxic Granulation PRESENT Toxic Vacuolation PRESENT Platelet Estimate NORMAL Plt Morphology Comment NORMAL RBC Morphology NORMAL Smear Tech's Comments MANUAL DIFF VBG pH VBG pCO2 VBG pO2 VBG HCO3 VBG O2 Saturation VBG Base Excess Anion Gap 13 Estim Creat Clear Calc 72.2 Estimated GFR > 60 POC Glucose 132 H Random Glucose 134 H Lactic Acid 1.5 Calcium 9.4 D Urine Color Dark Yellow Urine Appearance Clear Urine pH 5.5 Ur Specific [place] 1.020 Urine Protein 30 (1+) H Urine Glucose (UA) Negative Urine Ketones Negative Urine Blood Negative Urine Nitrite Negative Ur Leukocyte Esterase Small (1+) H Urine RBC 0-2 Urine WBC 0-5 Ur Squamous Epith Cells 0-2 Urine Bacteria None Seen Hyaline Casts 3-5 Influenza Type A (PCR) NEGATIVE Influenza Type B (PCR) NEGATIVE RSV RNA Qual (PCR) NEGATIVE SARS-CoV-2 RNA (RT-PCR) NEGATIVE 10/18/24 10/18/24 10/19/24 20:12 23:45 05:07 MCV 98.5 H MCH 32.0 MCHC 32.5 RDW 13.1 Plt Count 162 MPV 11.7 Immature Gran % (Auto) 0.5 H Neut % (Auto) 88.4 H Lymph % (Auto) 5.5 L [place] % (Auto) 4.2 Eos % (Auto) 1.0 Baso % (Auto) 0.4 Lymph # (Auto) 0.6 L [place] # (Auto) 0.5 Eos # (Auto) 0.1 Baso # (Auto) 0.0 Abs Immat Gran (auto) 0.05 H Absolute Neuts (auto) 9.8 H Absolute Nucleated RBC 0.000 Nucleated RBC % (auto) 0.0 Neutrophils % (Manual) Band Neutrophils % Lymphocytes % (Manual) Monocytes % (Manual) Abs Neuts (Manual) Lymphocytes # (Manual) Monocytes # (Manual) Toxic Granulation Toxic Vacuolation Platelet Estimate Plt Morphology Comment RBC Morphology Smear Tech's Comments VBG pH 7.43 VBG pCO2 38 VBG pO2 53 VBG HCO3 25 VBG O2 Saturation 86.0 VBG Base Excess 1.7 Anion Gap 11 L Estim Creat Clear Calc 94.9 Estimated GFR > 60 POC Glucose 124 H Random Glucose 103 Lactic Acid Calcium 8.7 D Urine Color Urine Appearance Urine pH Ur Specific [place] Urine Protein Urine Glucose (UA) Urine Ketones Urine Blood Urine Nitrite Ur Leukocyte Esterase Urine RBC Urine WBC Ur Squamous Epith Cells Urine Bacteria Hyaline Casts Influenza Type A (PCR) Influenza Type B (PCR) RSV RNA Qual (PCR) SARS-CoV-2 RNA (RT-PCR) Microbiology Microbiology Results: Microbiology 10/18/24 18:54 Urine Culture - Preliminary Urine Catheterized - Straight Catheter No growth to date. Assessment and Plan (1) Sepsis: Status: Acute Plan 84 yo F with alzheimer's dementia, PAF, htn, hld, TIA, carotid stenosis, pvd who is admitted for increasing confusion. 1. Acute metabolic encephalopathy suspected due to UTI / sepsis empiric zosyn; hold vancomcyin for now follow up cultures CT head neg pt at baseline AAOx2, on admission unable to provide meaningful history -- appears to be slowly improving towards baseline 2. PAF med rec pending cotinue OAC, add rate control drugs once med rec completed 3. Alzheimer's dementia continue baseline meds Full Code DVT pptx - Eliquis reason for continued hospitalization: Pt with suspected sepsis due to UTI leading to metabolic encephalopathy - not improved yet to baseline med rec pending, continue baseline meds as appropriate once completed. Quality Stroke Does the patient have a stroke diagnosis?: No VTE Prior VTE?: No VTE Risk Level:: Medical - moderate - high VTE Device Contraindication: Treatment Not Indicated VTE Drug Contraindication: N/A - Med Ordered
--- NOTE | 2024-10-19 10:54 | PHA.MEDREC ---
Pharmacy Consult ? Medication Reconciliation Pharmacy has completed the medication reconciliation, Karen Cabral spoke to the patient's HCP who confirmed all meds and OTCs.
[2024-10-19 12:13] VITALS: BP 142/65; PULSE 78; RESP 17; TEMP 37.1; O2SAT 95
[2024-10-19] MEDS: Metoprolol Succinate ER 25 MG TAB.ER.24H PO (12:15)
--- NOTE | 2024-10-19 15:58 | MHC.CM.PN ---
Addendum entered by Nitza Palmer 10/19/24 16:11: JOESPH ASKS THAT WE NOTIFY HIM EARLY POSSIBLE REGARDING DC Addendum entered by Nitza Palmer 10/19/24 16:09: VM MESSAGE LEFT FOR HCP/POA, JOESPH TILLMAN [phone] Original Note: CM MET WITH PT AND HER FRAME BANDER AT BEDSIDE FRAME BANDER REPORTS SHE WORKS FROM [phone] DAILY AND ANOTHER FRAME BANDER COMES IN FROM [phone] HOURS DAILY PT USES A HOSPITAL BED AND WHEEL CHAIR AND REQUIRES A SAM LIFT TO TRANSFER HCP ON FILE: JOESPH TILLMAN [phone] PCP: CHANA MEZA IMM DELIVERED DCP: HOME WITH RESUMPTION OF PRIVATE PAY SERVICES SON CAN TRANSPORT
[2024-10-19] MEDS: Gabapentin 100 MG CAPSULE PO ×2 (16:11→20:44)
[2024-10-19 19:05] VITALS: BP 176/65; PULSE 86; RESP 19; TEMP 37; O2SAT 96
--- NOTE | 2024-10-19 20:18 | PM.EVENT ---
Event Note Date of Service: 10/19/24 Event Note: Nurse reported 5 episodes of liquid stool in about 30 minutes. Will order GI panel, C diff. Time Spent With Patient Time: Total time managing care of this patient today ____ minutes.
[2024-10-19 20:40] VITALS: BP 181/88; PULSE 117; RESP 20; TEMP 36.6; O2SAT 95
[2024-10-19] MEDS: Melatonin 3 MG TABLET 6 MG PO (20:43)
[2024-10-19] MEDS: Atorvastatin Calcium 10 MG TABLET PO (20:44)
[2024-10-19] MEDS: Memantine HCl 5 MG TABLET PO (20:48)
--- NOTE | 2024-10-19 22:35 | MHC.EDTECH ---
Patient incontinent of urine and feces. Stool liquid in nature. Rectal tube ordered by hospitalist and placed by RN. Clean purewick placed. Complete linen change. Patient resting comfortably. All current needs met.
--- NOTE | 2024-10-20 02:03 | PC.NURSE ---
late entry. Pt had liquid diarrhea cleaned and changed roughly 5 times in 20 minutes. MD Colby aware, order for rectal tube as breakdown of skin started to occur.
[2024-10-20 04:20] VITALS: BP 135/102; PULSE 110; RESP 20; TEMP 36.8; O2SAT 99
[2024-10-20] MEDS: Piperacillin Sodium/Tazobactam 3.375 GM in 0.9 % Sodium Chloride 50 ML IV (04:21)
[2024-10-20 04:22] LABS: CDiff Gene PCR POSITIVE (Negative)
--- NOTE | 2024-10-20 04:23 | PC.NURSE ---
Pt cleaned and changed of urine. Rectal tube draining appropriately. Mepalex applied to coccyx
[2024-10-20 05:01] LABS: CDIFF Internal ctrl Dots and bkg OK (V); CDiff Toxin Negative (Negative)
--- NOTE | 2024-10-20 05:21 | PC.NURSE ---
Stool positive for c. diff. aware
--- NOTE | 2024-10-20 06:19 | PC.NURSE ---
Called Pharmacy for 0600 medication.
[2024-10-20 07:53] VITALS: BP 197/83; PULSE 98; RESP 20; TEMP 36.6; O2SAT 97
[2024-10-20] MEDS: Mirabegron 50 MG TAB.ER.24H PO (08:38)
[2024-10-20] MEDS: Memantine HCl 5 MG TABLET PO ×2 (08:38→20:53)
[2024-10-20] MEDS: Ferrous Sulfate 324 MG TABLET.DR PO (08:38)
[2024-10-20] MEDS: Gabapentin 100 MG CAPSULE PO ×3 (08:38→20:53)
[2024-10-20] MEDS: Cholecalciferol (Vitamin D3) 25 MCG TABLET PO (08:38)
[2024-10-20] MEDS: Metoprolol Succinate ER 25 MG TAB.ER.24H PO (08:38)
[2024-10-20] MEDS: Apixaban 5 MG TABLET PO ×2 (08:39→20:53)
[2024-10-20] MEDS: Calcium Oyster Shell Elemental 500 MG TABLET PO (08:39)
[2024-10-20] MEDS: Lactated Ringers 1,000 ML 100 ML IVCONT (08:39)
[2024-10-20] MEDS: Docusate Sodium 100 MG CAPSULE PO (08:39)
[2024-10-20] MEDS: Multivitamin TABLET 1 TAB PO (08:39)
[2024-10-20] MEDS: lisinopriL 5 MG TABLET PO (08:39)
[2024-10-20] MEDS: Magnesium Oxide 400 MG TABLET PO (08:39)
[2024-10-20] MEDS: vancomycin HCL 125 MG CAPSULE PO ×3 (08:46→17:54)
--- NOTE | 2024-10-20 09:16 | P.PNIM_ITS ---
Subjective Subjective Date of Service: 10/20/24 Interval History: seen and examined this AM overnight events reviewed -- noted diarrhea and C. diff testing that is showing likely colonization pt this AM with labile emotions -- singing at times and crying at others she denies any abdominal pain; more confused this AM -- thinks she is at her home Review of Systems Negative except HPI/interval history. Physical Exam 2 Vital Signs: Vital Signs: Last Vital Signs Temp 98 F 10/20/24 07:53 Pulse 98 10/20/24 07:53 Resp 20 10/20/24 07:53 BP 197/83 H 10/20/24 07:53 Pulse Ox 97 10/20/24 07:53 O2 Del Method Room Air 10/20/24 07:53 BMI result Body Mass Index 35.8 Const: Other: General - labile emotions this AM; confused and thinks shes at home Cardiovascular - regular rate and rhythm, S1-S2 Lungs - normal respiratory effort, clear to auscultation bilaterally, no wheezing Abdomen - soft, nontender, no rebound or guarding Extremities - no edema bilaterally Neuro - awake and alert, no focal deficits Objective Data Active Medications Acetaminophen (Acetaminophen 325 Mg Tablet) 975 mg PO Q6H PRN PRN Reason: Pain, Mild 1-3,fever,headache Apixaban (Apixaban 5 Mg Tablet) 5 mg PO BID [facility] Last Admin: 10/20/24 08:39 Dose: 5 mg Documented By: ALONSO Atorvastatin Calcium (Atorvastatin Calcium 10 Mg Tablet) 10 mg PO BEDTIME [facility] Last Admin: 10/19/24 20:44 Dose: 10 mg Documented By: DANIA Calcium Carbonate (Calcium Carbonate 750 Mg Tab.Chew) 750 mg PO Q4H PRN PRN Reason: Heartburn Calcium Carbonate (Calcium Oyster Shell Elemental 500 Mg Tablet) 500 mg PO DAILY [facility] Last Admin: 10/20/24 08:39 Dose: 500 mg Documented By: ALONSO Docusate Sodium (Docusate Sodium 100 Mg Capsule) 100 mg PO DAILY [facility] Last Admin: 10/20/24 08:39 Dose: 100 mg Documented By: ALONSO Ferrous Sulfate (Ferrous Sulfate 324 Mg Tablet.) 324 mg PO DAILY [facility] Last Admin: 10/20/24 08:38 Dose: 324 mg Documented By: ALONSO Folic Acid (Folic Acid 1 Mg Tablet) 1 mg PO DAILY [facility] Gabapentin (Gabapentin 100 Mg Capsule) 100 mg PO TID [facility] Last Admin: 10/20/24 08:38 Dose: 100 mg Documented By: ALONSO Piperacillin Sod/Tazobactam (Sod 3.375 gm/ Sodium Chloride) 50 mls @ 100 mls/hr IV Q6H [facility] Last Infusion: 10/20/24 04:53 Dose: Infused Documented By: DANIA Lactated Ringer's (Lr) 1,000 mls @ 100 mls/hr IVCONT .Q10H [facility] Last Admin: 10/20/24 08:39 Dose: 100 mls/hr Documented By: ALONSO Lisinopril (Lisinopril 5 Mg Tablet) 5 mg PO DAILY [facility]; Protocol Last Admin: 10/20/24 08:39 Dose: 5 mg Documented By: ALONSO Magnesium Hydroxide (Milk Of Magnesia 30 Ml Oral.Susp) 30 ml PO DAILY PRN PRN Reason: Constipation Magnesium Oxide (Magnesium Oxide 400 Mg Tablet) 400 mg PO DAILY [facility] Last Admin: 10/20/24 08:39 Dose: 400 mg Documented By: ALONSO Melatonin (Melatonin 3 Mg Tablet) 6 mg PO BEDTIME PRN PRN Reason: Insomnia Last Admin: 10/19/24 20:43 Dose: 6 mg Documented By: DANIA Memantine (Memantine Hcl 5 Mg Tablet) 5 mg PO BID [facility] Last Admin: 10/20/24 08:38 Dose: 5 mg Documented By: ALONSO Metoprolol Succinate (Metoprolol Succinate Er 25 Mg Tab.Er.24h) 25 mg PO DAILY [facility]; Protocol Last Admin: 10/20/24 08:38 Dose: 25 mg Documented By: ALONSO Mirabegron (Mirabegron 50 Mg Tab.Er.24h) 50 mg PO DAILY [facility] Last Admin: 10/20/24 08:38 Dose: 50 mg Documented By: ALONSO Multivitamins/Vitamin C (Multivitamin Tablet) 1 tab PO DAILY [facility] Last Admin: 10/20/24 08:39 Dose: 1 tab Documented By: ALONSO Ondansetron HCl (Ondansetron Hcl 4 Mg/2 Ml Vial) 4 mg IVPUSH Q8H PRN PRN Reason: Nausea and Vomiting Pharmacy Consult (Consult Rx Vancomycin Dosing) 1 each MISCELLANE DAILY PRN PRN Reason: Consult order Senna (Sennosides 8.6 Mg Tablet) 8.6 mg PO BEDTIME [facility] Last Admin: 10/19/24 20:40 Dose: Not Given Documented By: DANIA Non-Admin Reason: frequent diarrhea Sodium Chloride (0.9 % Sodium Chloride Flush 3 Ml Syringe) 3 ml IVFLUSH QSHIFT [facility] Last Admin: 10/20/24 08:40 Dose: Not Given Documented By: ALONSO Non-Admin Reason: IV Running Vancomycin HCl (Vancomycin Hcl 125 Mg Capsule) 125 mg PO Q6H [facility] Last Admin: 10/20/24 08:46 Dose: 125 mg Documented By: ALONSO Vitamin D (Cholecalciferol (Vitamin D3) 25 Mcg Tablet) 25 mcg PO DAILY [facility] Last Admin: 10/20/24 08:38 Dose: 25 mcg Documented By: ALONSO Labs 10/19/24 05:07 10/19/24 05:07 Labs: Laboratory Results - last 24 hr 10/20/24 03:20 C. difficile Tox B Gene POSITIVE A* C. difficile Toxin A&B Negative C. difficile Interpret SEE NOTE Microbiology Microbiology Results: Microbiology 10/18/24 18:54 Urine Culture - Final Urine Catheterized - Straight Catheter No growth. 10/18/24 19:41 Blood Culture - Preliminary Blood - Venous No growth after 24 hours. 10/18/24 19:41 Blood Culture - Preliminary Blood - Venous No growth after 24 hours. Assessment and Plan (1) Sepsis: Status: Acute Plan 84 yo F with alzheimer's dementia, PAF, htn, hld, TIA, carotid stenosis, pvd who is admitted for increasing confusion. 1. Acute metabolic encephalopathy - initially suspected due to UTI and sepsis Urine C&S negative -- now with diarrhea, will d/c antibiotics and await ID consult -- see below blood cx negative to date 2. Diarrhea C. diff toxin negative; gene+ likely colonization vs true infection - ? diarrhea related to antibiotics ID eval 3. PAF continue metoprolol + eliquisted 3. Alzheimer's dementia with behavioral disturbances continue baseline meds this AM more labile and confused -- likely some degree of delirium Full Code DVT pptx - Eliquis reason for continued hospitalization: worsening encephalopathy and diarrhea Quality Stroke Does the patient have a stroke diagnosis?: No VTE Prior VTE?: No VTE Risk Level:: Medical - moderate - high VTE Device Contraindication: Treatment Not Indicated VTE Drug Contraindication: N/A - Med Ordered
--- NOTE | 2024-10-20 09:53 | PC.NURSE ---
patient is awake and alert this morning, oriented to self, needs redirection on where she is, patient believes she is at home. 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 patient is pleasant and easily redirectable. patient moved into private room for +cdiff result, currently has LR running at 100ml/hr. patient has rectal tube in place due to fecal incontinence. patient has purewick in place. patient skin noted to be dry and intact. patient is non ambulatory at baseline.
[2024-10-20] MEDS: Folic Acid 1 MG TABLET PO (10:32)
[2024-10-20 10:39] LABS: Adenovirus F 40/41 Not Detected (Not Detect.); Astrovirus Not Detected (Not Detect.); Campylobacter Not Detected (Not Detect.); Cryptosporidium Not Detected (Not Detect.); Cyclospora cayetanensis Not Detected (Not Detect.); E. coli EAEC Not Detected (Not Detect.); E. coli EPEC Not Detected (Not Detect.); E. coli ETEC Not Detected (Not Detect.); E. coli STEC Not Detected (Not Detect.); Entamoeba histolytica Not Detected (Not Detect.); Giardia lamblia Not Detected (Not Detect.); Plesiomonas shigelloides Not Detected (Not Detect.); Rotavirus A Not Detected (Not Detect.); Salmonella Not Detected (Not Detect.); Sapovirus Not Detected (Not Detect.); Shigella sp./EIEC Not Detected (Not Detect.); Vibrio Not Detected (Not Detect.); Vibrio Cholerae Not Detected (Not Detect.); Yersinia enterocolitica Not Detected (Not Detect.)
--- NOTE | 2024-10-20 12:17 | PC.NURSE ---
patient sitting up eating lunch, patient has ELECTRICAL TECHNOLOGY INSTRUCTOR at bedside, this RN gave update to patients son josh and ELECTRICAL TECHNOLOGY INSTRUCTOR. patient noted to be more relaxed and oriented when ELECTRICAL TECHNOLOGY INSTRUCTOR is at bedsie. patient resting quietly, resp even and unlabored.
--- NOTE | 2024-10-20 12:50 | MHC.IC ---
Pt positive for Cdiff and Norovirus. STRICT contact precautions, hand washing with soap and water and cleaning with bleach.
[2024-10-20 13:57] VITALS: BP 204/93; PULSE 87; RESP 18; TEMP 36.7; O2SAT 96
[2024-10-20 15:36] LABS: Anion Gap 13 (12-20); Blood Urea Nitrogen 14 mg/dL (9-16); Calcium 8.6 mg/dL (8.4-10.2); Carbon Dioxide 16 mmol/L (22-29); Chloride 112 mmol/L (96-108); Creatinine Clr Calc Pharmacy 96.7; Estimated Glomerular Filt Rate > 60; Glucose Random 84 mg/dL (60-115); Potassium 3.3 mmol/L (3.3-5.1); Sodium 138 mmol/L (135-145)
[2024-10-20 16:03] LABS: Vancomycin Trough 6.4 mcg/mL (10.0-20.0)
[2024-10-20] MEDS: lisinopriL 10 MG TABLET PO (16:50)
--- NOTE | 2024-10-20 17:00 | PC.NURSE ---
patient bp noted to be high, inpatient provider made aware, order to increase lisinopril. patient medicated per DEC, late med pass due to meds not available in overflow pyxis.
[2024-10-20 17:44] VITALS: BP 196/88; PULSE 87; RESP 20; TEMP 37.4; O2SAT 95
--- NOTE | 2024-10-20 18:31 | PC.NURSE ---
patient linens changed, rectal probe still in place, patient purewick replaced. patient is awake and alert, ate some of dinner tray. 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
--- NOTE | 2024-10-20 19:21 | PC.NURSE ---
This RN assumed pt care @ 1900. Pt resting in bed, no signs of distress. Plan of care ongoing.
--- NOTE | 2024-10-20 19:25 | PC.NURSE ---
Pt on contact precautions. Plan of care ongoing.
[2024-10-20 20:00] VITALS: BP 193/87; PULSE 75; RESP 20; TEMP 37.9; O2SAT 96
--- NOTE | 2024-10-20 20:40 | PC.NURSE ---
Pt crying requesting help. Pt requested and assisted with socks. Pt requested and given something to read Pt requested and lights turned on. Pt requested and hob elevated. Plan of care ongoing.
[2024-10-20] MEDS: Atorvastatin Calcium 10 MG TABLET PO (20:53)
[2024-10-20] MEDS: Melatonin 3 MG TABLET 6 MG PO (20:53)
--- NOTE | 2024-10-20 20:58 | PC.NURSE ---
Pt medicated per mar, tolerated well. Plan of care ongoing.
[2024-10-20 21:10] VITALS: TEMP 36.7
--- NOTE | 2024-10-20 22:27 | PC.NURSE ---
Pt crying and calling out for help. Pt states how long will I be in here, no one has come in here to tell me anything . Pt redirected and educated on plan of care. Plan of care ongoing.
[2024-10-21] VITALS: RESP 16
[2024-10-21] MEDS: LORazepam 1 MG TABLET PO (00:58)
[2024-10-21] MEDS: vancomycin HCL 125 MG CAPSULE PO ×5 (00:59→22:51)
--- NOTE | 2024-10-21 01:20 | PC.NURSE ---
Pt medicated per [facility] Plan of care ongoing.
[2024-10-21 05:50] LABS: Hemoglobin 10.7 g/dl (12.0-16.0); Mean Corpuscular HGB Conc 34.5 g/dl (31.0-35.0); Mean Corpuscular Hemoglobin 32.4 pg (27.0-33.0); Mean Corpuscular Volume 93.9 fL (80.0-98.0); Mean Platelet Volume 11.3 fL (9.4-12.3); Platelet Count 163 X10*3/uL (160-400); Red Cell Distribution Width 12.9 % (11.0-16.0); White Blood Count 3.1 X10*3/uL (4.8-10.8)
--- NOTE | 2024-10-21 06:01 | PC.NURSE ---
Pt medicated per dec. Plan of care ongoing.
[2024-10-21 06:08] VITALS: BP 130/60; PULSE 65; RESP 16; TEMP 36.8; O2SAT 95
[2024-10-21 06:10] LABS: Anion Gap 12 (12-20); Blood Urea Nitrogen 11 mg/dL (9-16); Calcium 8.3 mg/dL (8.4-10.2); Carbon Dioxide 19 mmol/L (22-29); Chloride 111 mmol/L (96-108); Creatinine Clr Calc Pharmacy 94.9; Estimated Glomerular Filt Rate > 60; Glucose Random 80 mg/dL (60-115); Sodium 139 mmol/L (135-145)
--- NOTE | 2024-10-21 06:19 | MHC.EDTECH ---
Patient slept all night ,rounding done ,vitals taken ,care given ,Patient was change and reposition ,all safety measure in Place .
--- NOTE | 2024-10-21 06:32 | PC.NURSE ---
PO and IV Potassium not in Pyxis. Med requested from pharm, this RN spoke with Thuan. Plan of care ongoing.
--- NOTE | 2024-10-21 07:29 | PC.NURSE ---
called pharmacy for the potassium, waiting to be brought up
[2024-10-21] MEDS: 0.9 % Sodium Chloride Flush 3 ML SYRINGE IVFLUSH ×3 (08:01→23:58)
[2024-10-21] MEDS: Potassium Chloride/H20 10 MEQ/100 ML PIGGYBACK 100 MEQ IV ×4 (08:01→12:22)
[2024-10-21 08:22] LABS: Potassium 2.8 mmol/L (3.3-5.1)
[2024-10-21] MEDS: Potassium Chloride Packet 20 MEQ PACKET 40 MEQ PO (08:23)
--- NOTE | 2024-10-21 08:26 | MHC.IC ---
+ CDIFF PCR and prelim NOROVIRUS. Strict contact precautions, hand washing with soap and water, bleach for surfaces.
[2024-10-21 08:31] VITALS: BMI 35.8
[2024-10-21 09:12] VITALS: BP 131/99; PULSE 82; RESP 16; TEMP 36.9; O2SAT 95
[2024-10-21] MEDS: Ferrous Sulfate 324 MG TABLET.DR PO (09:33)
[2024-10-21] MEDS: Cholecalciferol (Vitamin D3) 25 MCG TABLET PO (09:33)
[2024-10-21] MEDS: Apixaban 5 MG TABLET PO ×2 (09:33→20:58)
[2024-10-21] MEDS: Calcium Oyster Shell Elemental 500 MG TABLET PO (09:33)
[2024-10-21] MEDS: Multivitamin TABLET 1 TAB PO (09:33)
[2024-10-21] MEDS: Magnesium Oxide 400 MG TABLET PO (09:33)
[2024-10-21] MEDS: Mirabegron 50 MG TAB.ER.24H PO (09:33)
[2024-10-21] MEDS: lisinopriL 20 MG TABLET PO (09:33)
[2024-10-21] MEDS: Metoprolol Succinate ER 25 MG TAB.ER.24H PO (09:33)
[2024-10-21] MEDS: Folic Acid 1 MG TABLET PO (09:34)
[2024-10-21] MEDS: Memantine HCl 5 MG TABLET PO ×2 (09:34→20:59)
[2024-10-21] MEDS: Gabapentin 100 MG CAPSULE PO ×3 (09:34→20:58)
[2024-10-21] MEDS: Docusate Sodium 100 MG CAPSULE PO (09:34)
--- NOTE | 2024-10-21 11:17 | P.PNIM_ITS ---
Subjective Subjective Date of Service: 10/21/24 Interval History: seen and examined this AM overnight events reviewed -- noted diarrhea and C. diff testing that is showing likely colonization pt this AM with labile emotions she denies any abdominal pain; more confused this AM Review of Systems Negative except HPI/interval history. Physical Exam 2 Vital Signs: Vital Signs: Last Vital Signs Temp 98.4 F 10/21/24 09:12 Pulse 82 10/21/24 09:12 Resp 16 10/21/24 09:12 BP 131/99 H 10/21/24 09:12 Pulse Ox 95 10/21/24 09:12 O2 Del Method Room Air 10/21/24 09:12 BMI result Body Mass Index 35.8 Appearing in no acute distress lung sounds are clear to auscultation heart regular rate rhythm, clear S1, S2 positive bowel sounds, abdomen is soft, nontender neuro patient is alert x3, no focal deficits Objective Data Active Medications Acetaminophen (Acetaminophen 325 Mg Tablet) 975 mg PO Q6H PRN PRN Reason: Pain, Mild 1-3,fever,headache Apixaban (Apixaban 5 Mg Tablet) 5 mg PO BID [facility] Last Admin: 10/21/24 09:33 Dose: 5 mg Documented By: KATHE Atorvastatin Calcium (Atorvastatin Calcium 10 Mg Tablet) 10 mg PO BEDTIME [facility] Last Admin: 10/20/24 20:53 Dose: 10 mg Documented By: MARILEE Calcium Carbonate (Calcium Carbonate 750 Mg Tab.Chew) 750 mg PO Q4H PRN PRN Reason: Heartburn Calcium Carbonate (Calcium Oyster Shell Elemental 500 Mg Tablet) 500 mg PO DAILY [facility] Last Admin: 10/21/24 09:33 Dose: 500 mg Documented By: KATHE Docusate Sodium (Docusate Sodium 100 Mg Capsule) 100 mg PO DAILY [facility] Last Admin: 10/21/24 09:34 Dose: 100 mg Documented By: KATHE Ferrous Sulfate (Ferrous Sulfate 324 Mg Tablet.) 324 mg PO DAILY [facility] Last Admin: 10/21/24 09:33 Dose: 324 mg Documented By: KATHE Folic Acid (Folic Acid 1 Mg Tablet) 1 mg PO DAILY [facility] Last Admin: 10/21/24 09:34 Dose: 1 mg Documented By: KATHE Gabapentin (Gabapentin 100 Mg Capsule) 100 mg PO TID [facility] Last Admin: 10/21/24 09:34 Dose: 100 mg Documented By: KATHE Lisinopril (Lisinopril 20 Mg Tablet) 20 mg PO DAILY [facility]; Protocol Last Admin: 10/21/24 09:33 Dose: 20 mg Documented By: KATHE Magnesium Hydroxide (Milk Of Magnesia 30 Ml Oral.Susp) 30 ml PO DAILY PRN PRN Reason: Constipation Magnesium Oxide (Magnesium Oxide 400 Mg Tablet) 400 mg PO DAILY [facility] Last Admin: 10/21/24 09:33 Dose: 400 mg Documented By: KATHE Melatonin (Melatonin 3 Mg Tablet) 6 mg PO BEDTIME PRN PRN Reason: Insomnia Last Admin: 10/20/24 20:53 Dose: 6 mg Documented By: MARILEE Memantine (Memantine Hcl 5 Mg Tablet) 5 mg PO BID [facility] Last Admin: 10/21/24 09:34 Dose: 5 mg Documented By: KATHE Metoprolol Succinate (Metoprolol Succinate Er 25 Mg Tab.Er.24h) 25 mg PO DAILY [facility]; Protocol Last Admin: 10/21/24 09:33 Dose: 25 mg Documented By: KATHE Mirabegron (Mirabegron 50 Mg Tab.Er.24h) 50 mg PO DAILY [facility] Last Admin: 10/21/24 09:33 Dose: 50 mg Documented By: KATHE Multivitamins/Vitamin C (Multivitamin Tablet) 1 tab PO DAILY [facility] Last Admin: 10/21/24 09:33 Dose: 1 tab Documented By: KATHE Ondansetron HCl (Ondansetron Hcl 4 Mg/2 Ml Vial) 4 mg IVPUSH Q8H PRN PRN Reason: Nausea and Vomiting Senna (Sennosides 8.6 Mg Tablet) 8.6 mg PO BEDTIME [facility] Last Admin: 10/20/24 20:45 Dose: Not Given Documented By: MARILEE Non-Admin Reason: See Note Sodium Chloride (0.9 % Sodium Chloride Flush 3 Ml Syringe) 3 ml IVFLUSH QSHIFT [facility] Last Admin: 10/21/24 08:01 Dose: 3 ml Documented By: NENA Vancomycin HCl (Vancomycin Hcl 125 Mg Capsule) 125 mg PO Q6H [facility] Last Admin: 10/21/24 06:00 Dose: 125 mg Documented By: MARILEE Vitamin D (Cholecalciferol (Vitamin D3) 25 Mcg Tablet) 25 mcg PO DAILY [facility] Last Admin: 10/21/24 09:33 Dose: 25 mcg Documented By: KATHE Labs 10/21/24 04:56 10/21/24 04:56 Labs: Laboratory Results - last 24 hr 10/20/24 10/20/24 10/21/24 03:20 14:54 04:56 MCV 93.9 MCH 32.4 MCHC 34.5 RDW 12.9 Plt Count 163 MPV 11.3 Absolute Nucleated RBC 0.000 Nucleated RBC % (auto) 0.0 Anion Gap 13 12 Estim Creat Clear Calc 96.7 94.9 Estimated GFR > 60 > 60 Random Glucose 84 80 Calcium 8.6 8.3 L Stl C. cayetanensis PCR Not Detected Stool Rotavirus A PCR Not Detected Stl Adenov F 40 PCR Not Detected Stool Astrovirus (PCR) Not Detected Stool Campylobacter PCR Not Detected Stool Cryptosporidium PCR Not Detected Stl Sh Tox Pr E STEC PCR Not Detected Stool E coli O157 PCR Not applicable Stl Enterotoxigenic E PCR Not Detected Stool EPEC (PCR) Not Detected Stool EAEC (PCR) Not Detected Stl E. histolytica PCR Not Detected Stool Giardia Lamblia PCR Not Detected Stl P. shigelloides PCR Not Detected Stool Salmonella PCR Not Detected Stool Sapovirus (PCR) Not Detected Stl Shigella/EIEC PCR Not Detected St Y.enterocolitica PCR Not Detected Stool Vibrio (PCR) Not Detected Stl Vibrio cholerae PCR Not Detected Stl Norovirus GI/GII PCR See Comment Vancomycin Trough 6.4 L Microbiology Microbiology Results: Microbiology 10/18/24 19:41 Blood Culture - Preliminary Blood - Venous No growth after 48 hours. 10/18/24 19:41 Blood Culture - Preliminary Blood - Venous No growth after 48 hours. 10/18/24 18:54 Urine Culture - Final Urine Catheterized - Straight Catheter No growth. Assessment and Plan (1) Sepsis: Status: Acute Plan 84 yo F with alzheimer's dementia, PAF, htn, hld, TIA, carotid stenosis, pvd admitted for increasing confusion. Acute metabolic encephalopathy initially suspected due to UTI and sepsis Urine C&S negative now with diarrhea, antibiotics stopped blood cx negative to date Diarrhea C. diff toxin negative; gene+ likely colonization vs true infection - ? diarrhea related to antibiotics oral vancomycin ID eval Hypokalemia likely from diarrhea replete and follow PAF continue metoprolol + eliquisted Alzheimer's dementia with behavioral disturbances continue baseline meds this AM more labile and confused, likely some degree of delirium Full Code DVT pptx - Eliquis reason for continued hospitalization: worsening encephalopathy and diarrhea Quality Stroke Does the patient have a stroke diagnosis?: No VTE Prior VTE?: No VTE Risk Level:: Medical - moderate - high VTE Device Contraindication: Treatment Not Indicated VTE Drug Contraindication: N/A - Med Ordered
--- NOTE | 2024-10-21 12:15 | MHC.CM.PN ---
PER MD ROUNDS PATIENT NOT MEDICALLY CLEARED FOR DC. CM WILL CONTINUE TO FOLLOW.
[2024-10-21 13:08] VITALS: BMI 35.8
--- NOTE | 2024-10-21 13:21 | MHC.CLN ---
NUTRITION DIET=REGULAR. SCOTT=11. PRESSURE INJURY NOTED BUT NO ADDITIONAL DETAILS AT TIME OF ASSESSMENT. 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 FOLLOW FOR SKIN ASSESSMENT AND PO INTAKE. SEE CLINICAL NUTRITION ASSESSMENT 10/21/24.
[2024-10-21 15:46] VITALS: BP 127/59; PULSE 71; RESP 20; TEMP 36.6; O2SAT 96
--- NOTE | 2024-10-21 16:33 | HO.WOUND ---
Wound Consult: Initial 84yr old? female admitted to [facility] on 10/18/24 - See progress notes and H&P for detailed history.? Wound consult placed for coccyx wound POA.? Patient agreeable to assessment and photo documentation.?however at the time of my arrival she was eating lunch and preferred future time of assessment. Agreed to return at future time or date for assessment. Spoke to patient son Horacio and two aides who care for patient at home. They report the left heel remains a callus and they treat with elevation off of bed surface. they report the coccyx sacral area is improved and healing. They report they treat with hydrocolloids at home. We discussed foam use here at the hospital and low air loss pump for bed. Of note the patient uses a hospital bed at home. T Sacrum Previously documented as ?Deep Tissue Injury Present on Admission not assessed today treatment will consist of following until assessment Goals of Treatment: ? Off Load Pressure - Foam sacral dressing to aid in pressure redistribution Left Heel Previously documented as ?Deep Tissue Injury Present on Admission not assessed today treatment will consist of following until assessment Goals of Treatment: Off Load Pressure - Skin prep to protect from friction and Heel protector boot to off load pressure Recommendations: 1. Turn and Reposition every 2 hours and as needed for patient comfort.? Use pillows or wedges to support off loading positions. 2. Off Load all bony prominences with use of pillows and heel boots if needed.? Apply Preventative foams where needed. ? 3. Monitor for incontinence and moisture control, use barrier creams when needed for prevention and treatment. 4. Provide adequate and supplemental nutrition.? 5. Continue low air loss mattress. 6. Left Heel - Apply Skin prep. Apply heel protector boot to off load heel from bed surface. 7. Sacrum - Routine cleansing. Apply Sacral foam dressing peel back and assess Q shift and change every 3 days and PRN. Apply barrier cream to perineal / perianal area to protect from moisture. Re-consult wound care Nurse for wound deterioration or wound changes.
[2024-10-21 16:39] LABS: Glucose, Whole Blood 104 mg/dL (60-115)
[2024-10-21 20:00] VITALS: BP 135/72; PULSE 72; RESP 20; TEMP 36.2; O2SAT 95
[2024-10-21] MEDS: Atorvastatin Calcium 10 MG TABLET PO (20:58)
[2024-10-21] MEDS: Melatonin 3 MG TABLET 6 MG PO (22:51)
[2024-10-22 03:34] VITALS: BP 148/86; PULSE 67; RESP 16; TEMP 37.1; O2SAT 95
[2024-10-22] MEDS: vancomycin HCL 125 MG CAPSULE PO ×2 (05:41→12:01)
[2024-10-22 06:58] LABS: Estimated Glomerular Filt Rate > 60
[2024-10-22 07:49] VITALS: BP 140/69; PULSE 71; RESP 16; TEMP 37; O2SAT 97
[2024-10-22 07:54] LABS: Anion Gap 12 (12-20)
[2024-10-22 08:00] LABS: Blood Urea Nitrogen 12 mg/dL (9-16); Calcium 8.9 mg/dL (8.4-10.2); Carbon Dioxide 21 mmol/L (22-29); Chloride 111 mmol/L (96-108); Glucose Random 90 mg/dL (60-115); Magnesium 1.8 mg/dL (1.6-2.6); Potassium 3.9 mmol/L (3.3-5.1); Sodium 140 mmol/L (135-145)
[2024-10-22] MEDS: lisinopriL 20 MG TABLET PO (08:24)
[2024-10-22] MEDS: Calcium Oyster Shell Elemental 500 MG TABLET PO (08:25)
[2024-10-22] MEDS: Cholecalciferol (Vitamin D3) 25 MCG TABLET PO (08:25)
[2024-10-22] MEDS: Apixaban 5 MG TABLET PO ×2 (08:25→20:47)
[2024-10-22] MEDS: Mirabegron 50 MG TAB.ER.24H PO (08:25)
[2024-10-22] MEDS: Docusate Sodium 100 MG CAPSULE PO (08:25)
[2024-10-22] MEDS: Multivitamin TABLET 1 TAB PO (08:26)
[2024-10-22] MEDS: Magnesium Oxide 400 MG TABLET PO (08:26)
[2024-10-22] MEDS: Folic Acid 1 MG TABLET PO (08:26)
[2024-10-22] MEDS: Metoprolol Succinate ER 25 MG TAB.ER.24H PO (08:26)
[2024-10-22] MEDS: Memantine HCl 5 MG TABLET PO ×2 (08:26→20:47)
[2024-10-22] MEDS: Ferrous Sulfate 324 MG TABLET.DR PO (08:26)
[2024-10-22] MEDS: Gabapentin 100 MG CAPSULE PO ×3 (08:27→20:47)
[2024-10-22] MEDS: 0.9 % Sodium Chloride Flush 3 ML SYRINGE IVFLUSH ×3 (08:35→20:50)
[2024-10-22 08:45] LABS: Norovirus Stool PCR DETECTED
[2024-10-22 11:30] VITALS: BP 143/66; PULSE 70; RESP 16; TEMP 36.8; O2SAT 96
[2024-10-22 15:12] VITALS: BP 146/65; PULSE 82; RESP 20; TEMP 36.1; O2SAT 94
--- NOTE | 2024-10-22 16:35 | HO.WOUND ---
Wound Consult: follow up 84yr old? female admitted to [facility] on 10/18/24 - See progress notes and H&P for detailed history.? Wound consult follow up for coccyx wound and Left heel POA.? Patient agreeable to assessment and photo documentation.? Left Heel - resolving full thickness pressure injury - foam dressing application and elevate heels off of bed surface. Right heel - intact no PI injury noted Sacrum - Deep Tissue Injury two areas noted - intact nonblanchable tissue - MASD noted to the periwound. Recommend barrier cream and sacral foam dressing to protect from friction and sheer. Details from yesterdays assessment: Spoke to patient son Horacio and two aides who care for patient at home. They report the left heel remains a callus and they treat with elevation off of bed surface. they report the coccyx sacral area is improved and healing. They report they treat with hydrocolloids at home. We discussed foam use here at the hospital and low air loss pump for bed. Of note the patient uses a hospital bed at home. T Sacrum Previously documented as ?Deep Tissue Injury Present on Admission not assessed today treatment will consist of following until assessment Goals of Treatment: ? Off Load Pressure - Foam sacral dressing to aid in pressure redistribution Left Heel Previously documented as ?Deep Tissue Injury Present on Admission not assessed today treatment will consist of following until assessment Goals of Treatment: Off Load Pressure - Skin prep to protect from friction and Heel protector boot to off load pressure Recommendations: 1. Turn and Reposition every 2 hours and as needed for patient comfort.? Use pillows or wedges to support off loading positions. 2. Off Load all bony prominences with use of pillows and heel boots if needed.? Apply Preventative foams where needed. ? 3. Monitor for incontinence and moisture control, use barrier creams when needed for prevention and treatment. 4. Provide adequate and supplemental nutrition.? 5. Continue low air loss mattress. 6. Left Heel - Apply Skin prep. Apply heel protector boot to off load heel from bed surface. 7. Sacrum - Routine cleansing. Apply Sacral foam dressing peel back and assess Q shift and change every 3 days and PRN. Apply barrier cream to perineal / perianal area to protect from moisture. Re-consult wound care Nurse for wound deterioration or wound changes.
--- NOTE | 2024-10-22 17:25 | P.PNIM_ITS ---
Subjective Subjective Date of Service: 10/22/24 Interval History: seen and examined this morning follow up for diarrhea awake, confused Review of Systems Review of Systems: Yes all other systems are reviewed and are negative Constitutional Constitutional: Denies chills and Denies fever(s) Physical Exam 2 Vital Signs: Vital Signs: Last Vital Signs Temp 97 F 10/22/24 15:12 Pulse 82 10/22/24 15:12 Resp 20 10/22/24 15:12 BP 146/65 H 10/22/24 15:12 Pulse Ox 94 10/22/24 15:12 O2 Del Method Room Air 10/22/24 15:12 BMI result Body Mass Index 35.8 Const: General: cooperative, no acute distress, alert and awake Nutritional Appearance: obese Orientation/consciousness: oriented to person Resp: Effort & Inspection: normal respiratory effort, able to speak in complete sentences, no respiratory distress and no use of accessory muscles Cardio: Rate: regular rate GI: Inspection: No distended Palpation (GI): Soft to palpation Neuro: Other: left hand/arm contracture General: oriented to person Extrem: General: Yes no pedal edema Objective Data Active Medications Acetaminophen (Acetaminophen 325 Mg Tablet) 975 mg PO Q6H PRN PRN Reason: Pain, Mild 1-3,fever,headache Apixaban (Apixaban 5 Mg Tablet) 5 mg PO BID [facility] Last Admin: 10/22/24 08:25 Dose: 5 mg Documented By: TABITHA Atorvastatin Calcium (Atorvastatin Calcium 10 Mg Tablet) 10 mg PO BEDTIME [facility] Last Admin: 10/21/24 20:58 Dose: 10 mg Documented By: RADHA Calcium Carbonate (Calcium Carbonate 750 Mg Tab.Chew) 750 mg PO Q4H PRN PRN Reason: Heartburn Calcium Carbonate (Calcium Oyster Shell Elemental 500 Mg Tablet) 500 mg PO DAILY [facility] Last Admin: 10/22/24 08:25 Dose: 500 mg Documented By: TABITHA Docusate Sodium (Docusate Sodium 100 Mg Capsule) 100 mg PO DAILY [facility] Last Admin: 10/22/24 08:25 Dose: 100 mg Documented By: TABITHA Ferrous Sulfate (Ferrous Sulfate 324 Mg Tablet.) 324 mg PO DAILY [facility] Last Admin: 10/22/24 08:26 Dose: 324 mg Documented By: TABITHA Folic Acid (Folic Acid 1 Mg Tablet) 1 mg PO DAILY [facility] Last Admin: 10/22/24 08:26 Dose: 1 mg Documented By: TABITHA Gabapentin (Gabapentin 100 Mg Capsule) 100 mg PO TID [facility] Last Admin: 10/22/24 15:25 Dose: 100 mg Documented By: TABITHA Lisinopril (Lisinopril 20 Mg Tablet) 20 mg PO DAILY [facility]; Protocol Last Admin: 10/22/24 08:24 Dose: 20 mg Documented By: TABITHA Magnesium Hydroxide (Milk Of Magnesia 30 Ml Oral.Susp) 30 ml PO DAILY PRN PRN Reason: Constipation Magnesium Oxide (Magnesium Oxide 400 Mg Tablet) 400 mg PO DAILY [facility] Last Admin: 10/22/24 08:26 Dose: 400 mg Documented By: TABITHA Melatonin (Melatonin 3 Mg Tablet) 6 mg PO BEDTIME PRN PRN Reason: Insomnia Last Admin: 10/21/24 22:51 Dose: 6 mg Documented By: RADHA Memantine (Memantine Hcl 5 Mg Tablet) 5 mg PO BID [facility] Last Admin: 10/22/24 08:26 Dose: 5 mg Documented By: TABITHA Metoprolol Succinate (Metoprolol Succinate Er 25 Mg Tab.Er.24h) 25 mg PO DAILY [facility]; Protocol Last Admin: 10/22/24 08:26 Dose: 25 mg Documented By: TABITHA Mirabegron (Mirabegron 50 Mg Tab.Er.24h) 50 mg PO DAILY [facility] Last Admin: 10/22/24 08:25 Dose: 50 mg Documented By: TABITHA Multivitamins/Vitamin C (Multivitamin Tablet) 1 tab PO DAILY [facility] Last Admin: 10/22/24 08:26 Dose: 1 tab Documented By: TABITHA Ondansetron HCl (Ondansetron Hcl 4 Mg/2 Ml Vial) 4 mg IVPUSH Q8H PRN PRN Reason: Nausea and Vomiting Senna (Sennosides 8.6 Mg Tablet) 8.6 mg PO BEDTIME [facility] Last Admin: 10/21/24 21:00 Dose: Not Given Documented By: RADHA Non-Admin Reason: See Note Sodium Chloride (0.9 % Sodium Chloride Flush 3 Ml Syringe) 3 ml IVFLUSH QSHIFT [facility] Last Admin: 10/22/24 15:25 Dose: 3 ml Documented By: TABITHA Vancomycin HCl (Vancomycin Hcl 125 Mg Capsule) 125 mg PO Q6H [facility] Last Admin: 10/22/24 12:01 Dose: 125 mg Documented By: TABITHA Vitamin D (Cholecalciferol (Vitamin D3) 25 Mcg Tablet) 25 mcg PO DAILY [facility] Last Admin: 10/22/24 08:25 Dose: 25 mcg Documented By: TABITHA Labs 10/21/24 04:56 10/22/24 05:21 Labs: Laboratory Results - last 24 hr 10/20/24 10/22/24 03:20 05:21 Hold Purple Top SEE NOTE Anion Gap 12 Estim Creat Clear Calc 93.0 Estimated GFR > 60 Random Glucose 90 Calcium 8.9 D Magnesium 1.8 Stool Norovirus (PCR) DETECTED Assessment and Plan (1) Diarrhea: Status: Acute Plan 84 yo F with alzheimer's dementia, PAF, htn, hld, TIA, carotid stenosis, pvd admitted for increasing confusion. Acute metabolic encephalopathy. confused at baseline due to underlying dementia, seems to be near baseline initially suspected due to UTI and sepsis Urine C&S negative now with diarrhea, antibiotics stopped blood cx negative to date Diarrhea C. diff PCR + toxin negative likely colonization vs true infection GI panel +for norovirus as likely cause of diarrhea initially treated with oral vancomycin, but due to above will stop ID eval prn imodium Hypokalemia improved with placement PAF continue metoprolol + eliquis Alzheimer's dementia with behavioral disturbances continue baseline meds Full Code DVT pptx - Eliquis reason for continued hospitalization: worsening encephalopathy and diarrhea Quality Stroke Does the patient have a stroke diagnosis?: No VTE Prior VTE?: No VTE Risk Level:: Medical - moderate - high VTE Device Contraindication: Treatment Not Indicated VTE Drug Contraindication: N/A - Med Ordered
[2024-10-22 19:13] VITALS: TEMP 36.4; O2SAT 97
[2024-10-22] MEDS: Sennosides 8.6 MG TABLET PO (20:47)
[2024-10-22] MEDS: Atorvastatin Calcium 10 MG TABLET PO (20:47)
[2024-10-22] MEDS: Melatonin 3 MG TABLET 6 MG PO (20:47)
--- NOTE | 2024-10-22 21:47 | W.PM.IDCN ---
History of Present Illness Data of Consult Service Date: 10/20/24 Requesting physician: Frieda Beasley Primary Care Provider: Buster Hyde MD HPI Reason for consult: diarrhea,lethargy She presents with lethargy. She has had diarrhea several times a day. Stool positive for Cdiff PCR. I dont see h/o Cdiff. She has dementia. Review of Systems Review of Systems: Yes all other systems are reviewed and are negative [facility] Past Medical History Medical History (Updated 10/22/24 @ 21:55 by Symone Davey MD) Clostridioides difficile infection Dementia with behavioral problem Delirium due to another medical condition PAD (peripheral artery disease) Dementia Paroxysmal atrial fibrillation Peripheral neuropathy TIA (transient ischemic attack) Foot drop Carotid artery stenosis Afib Hyperlipidemia Anemia Hypertension Family History Family history: reviewed and not pertinent Surgical History Surgical History S/P aortogram with runoff H/O foot surgery History of bilateral knee replacement H/O tubal ligation History of cholecystectomy H/O endarterectomy Social History Social History Household Members: Unknown / Unable to assess Household Members Other:: pt states home with son and also states snf so unsure Housing: Unknown / Unable to assess Unable to assess alcohol history related to: Unable to respond Alcohol intake: former Comment: as per previous Patient Tobacco Use Status: Never used Tobacco Advance Directives Date on File: 01/13/24 service: No Meds Allergies Allergy/AdvReac Type Severity Reaction Status Date / Time gentamicin [GENTAMICIN] Allergy Intermediate SWELLING Verified 10/18/24 16:14 sulfamethoxazole Allergy Intermediate RASH Verified 10/18/24 16:14 [From BACTRIM] trimethoprim [From BACTRIM] Allergy Intermediate RASH Verified 10/18/24 16:14 Active Medications: Current Medications Acetaminophen (Acetaminophen 325 Mg Tablet) 975 mg PO Q6H PRN PRN Reason: Pain, Mild 1-3,fever,headache Apixaban (Apixaban 5 Mg Tablet) 5 mg PO BID [facility] Last Admin: 10/22/24 20:47 Dose: 5 mg Atorvastatin Calcium (Atorvastatin Calcium 10 Mg Tablet) 10 mg PO BEDTIME [facility] Last Admin: 10/22/24 20:47 Dose: 10 mg Calcium Carbonate (Calcium Carbonate 750 Mg Tab.Chew) 750 mg PO Q4H PRN PRN Reason: Heartburn Calcium Carbonate (Calcium Oyster Shell Elemental 500 Mg Tablet) 500 mg PO DAILY [facility] Last Admin: 10/22/24 08:25 Dose: 500 mg Docusate Sodium (Docusate Sodium 100 Mg Capsule) 100 mg PO DAILY [facility] Last Admin: 10/22/24 08:25 Dose: 100 mg Ferrous Sulfate (Ferrous Sulfate 324 Mg Tablet.Dr) 324 mg PO DAILY [facility] Last Admin: 10/22/24 08:26 Dose: 324 mg Folic Acid (Folic Acid 1 Mg Tablet) 1 mg PO DAILY [facility] Last Admin: 10/22/24 08:26 Dose: 1 mg Gabapentin (Gabapentin 100 Mg Capsule) 100 mg PO TID [facility] Last Admin: 10/22/24 20:47 Dose: 100 mg Lisinopril (Lisinopril 20 Mg Tablet) 20 mg PO DAILY [facility]; Protocol Last Admin: 10/22/24 08:24 Dose: 20 mg Loperamide HCl (Loperamide Hcl 2 Mg Capsule) 2 mg PO Q6H PRN PRN Reason: Diarrhea Magnesium Hydroxide (Milk Of Magnesia 30 Ml Oral.Susp) 30 ml PO DAILY PRN PRN Reason: Constipation Magnesium Oxide (Magnesium Oxide 400 Mg Tablet) 400 mg PO DAILY [facility] Last Admin: 10/22/24 08:26 Dose: 400 mg Melatonin (Melatonin 3 Mg Tablet) 6 mg PO BEDTIME PRN PRN Reason: Insomnia Last Admin: 10/22/24 20:47 Dose: 6 mg Memantine (Memantine Hcl 5 Mg Tablet) 5 mg PO BID [facility] Last Admin: 10/22/24 20:47 Dose: 5 mg Metoprolol Succinate (Metoprolol Succinate Er 25 Mg Tab.Er.24h) 25 mg PO DAILY [facility]; Protocol Last Admin: 10/22/24 08:26 Dose: 25 mg Mirabegron (Mirabegron 50 Mg Tab.Er.24h) 50 mg PO DAILY [facility] Last Admin: 10/22/24 08:25 Dose: 50 mg Multivitamins/Vitamin C (Multivitamin Tablet) 1 tab PO DAILY [facility] Last Admin: 10/22/24 08:26 Dose: 1 tab Ondansetron HCl (Ondansetron Hcl 4 Mg/2 Ml Vial) 4 mg IVPUSH Q8H PRN PRN Reason: Nausea and Vomiting Senna (Sennosides 8.6 Mg Tablet) 8.6 mg PO BEDTIME [facility] Last Admin: 10/22/24 20:47 Dose: 8.6 mg Sodium Chloride (0.9 % Sodium Chloride Flush 3 Ml Syringe) 3 ml IVFLUSH QSHIFT [facility] Last Admin: 10/22/24 20:50 Dose: 3 ml Vancomycin HCl (Vancomycin Hcl 125 Mg Capsule) 125 mg PO Q6H [facility] Last Admin: 10/22/24 12:01 Dose: 125 mg Vitamin D (Cholecalciferol (Vitamin D3) 25 Mcg Tablet) 25 mcg PO DAILY [facility] Last Admin: 10/22/24 08:25 Dose: 25 mcg Home Medications ?Medication ?Instructions ?Recorded ?Confirmed ?Last Taken ?Type apixaban 5 mg tablet (Eliquis) 5 mg PO BID 01/06/24 10/19/24 10/18/24 History atorvastatin 10 mg tablet 10 mg PO BEDTIME 01/06/24 10/19/24 05/13/24 History cholecalciferol (vitamin D3) 25 25 mcg PO DAILY 01/06/24 10/19/24 10/18/24 History mcg (1,000 unit) tablet ferrous sulfate 324 mg (65 mg 324 mg PO DAILY 01/06/24 10/19/24 10/18/24 History iron) tablet,delayed release gabapentin 100 mg capsule 100 mg PO TID 01/06/24 10/19/24 10/18/24 History memantine 5 mg tablet 5 mg PO BID 01/06/24 10/19/24 10/18/24 History metoprolol succinate 25 mg 25 mg PO DAILY 01/06/24 10/19/24 10/18/24 History tablet,extended release 24 hr mirabegron 50 mg tablet,extended 50 mg PO DAILY 01/06/24 10/19/24 10/18/24 History release 24 hr (Myrbetriq) multivitamin 1 tab PO DAILY 01/06/24 10/19/24 10/18/24 History acetaminophen 500 mg tablet 1,000 mg PO Q4H PRN Fever Or Pain 01/16/24 10/19/24 05/14/24 08:30 History docusate sodium 100 mg tablet 100 mg PO DAILY 01/16/24 10/19/24 10/18/24 History sennosides 8.6 mg tablet (senna) 8.6 mg PO BEDTIME 01/16/24 10/19/24 05/13/24 History lisinopril 5 mg tablet 5 mg PO DAILY 05/14/24 10/19/24 10/18/24 History silver sulfadiazine 1 % topical 1 appl topical BID PRN Rash 05/14/24 10/19/24 05/14/24 08:30 History cream (SSD) calcium carbonate 500 mg PO DAILY 10/19/24 10/19/24 10/18/24 History folic acid 1 mg tablet 1 mg PO DAILY 10/19/24 10/19/24 10/18/24 History magnesium oxide 400 mg PO DAILY 10/19/24 10/19/24 10/18/24 History Physical Exam Vital Signs: Vital Signs: Last Vital Signs Temp 97.5 F 10/22/24 19:13 Pulse 82 10/22/24 15:12 Resp 20 10/22/24 15:12 BP 146/65 H 10/22/24 15:12 Pulse Ox 97 10/22/24 19:13 O2 Del Method Room Air 10/22/24 15:12 BMI result Body Mass Index 35.8 Const: General: cooperative HEENT: Head: Yes normal to inspection Face and sinus: Yes normal facial exam Mouth: Normal oral and palatal mucosa present Teeth and gingiva: dentition normal Eyes: General: appearance normal, both eyes and all related structures Pupils: Equal, round and reactive pupils present Resp: Effort & Inspection: normal respiratory effort Cardio: Rate: regular rate Rhythm: regular rhythm GI: Palpation (GI): Soft to palpation and nontender : General: Yes no CVA tenderness Back/Spine/Pelvis: Back: no CVA tenderness Skin: General skin exam: no rashes or lesions noted Neuro: General: moves all extremities Cranial nerves: Yes Equal, round and reactive pupils present Extrem: General: Yes normal to inspection Psych: Other: demented,poor historian Appearance: grossly normal Results Labs 10/21/24 04:56 10/22/24 05:21 Labs: BMP 10/22/24 05:21 Sodium 140 Potassium 3.9 D Chloride 111 H Carbon Dioxide 21 L BUN 12 Creatinine 0.52 Calcium 8.9 D Microbiology Microbiology Results: Microbiology 10/18/24 19:41 Blood - Venous Blood Culture - Preliminary No growth after 48 hours. 10/18/24 19:41 Blood - Venous Blood Culture - Preliminary No growth after 48 hours. 10/18/24 18:54 Urine Catheterized - Straight Catheter Urine Culture - Final No growth. Assessment and Plan (1) Clostridioides difficile infection: Status: Acute Plan 10 days po Vancomycin 125 mg qid. When receives antibiotics Vancomycin 125 qid for course of antibiotics and then 48 h after. Bleach to environment.
[2024-10-23] VITALS: BP 150/68; PULSE 69; RESP 18; TEMP 36.4; O2SAT 96
[2024-10-23 03:58] VITALS: BP 145/65; PULSE 66; RESP 18; TEMP 36.4; O2SAT 96
[2024-10-23 06:29] LABS: Creatinine Clr Calc Pharmacy 98.7; Estimated Glomerular Filt Rate > 60
[2024-10-23 08:00] VITALS: BP 137/91; PULSE 74; RESP 16; TEMP 36.4; O2SAT 96
[2024-10-23] MEDS: lisinopriL 20 MG TABLET PO (08:33)
[2024-10-23] MEDS: Mirabegron 50 MG TAB.ER.24H PO (08:33)
[2024-10-23] MEDS: Ferrous Sulfate 324 MG TABLET.DR PO (08:33)
[2024-10-23] MEDS: Memantine HCl 5 MG TABLET PO (08:34)
[2024-10-23] MEDS: Multivitamin TABLET 1 TAB PO (08:34)
[2024-10-23] MEDS: Calcium Oyster Shell Elemental 500 MG TABLET PO (08:34)
[2024-10-23] MEDS: Apixaban 5 MG TABLET PO (08:34)
[2024-10-23] MEDS: Cholecalciferol (Vitamin D3) 25 MCG TABLET PO (08:34)
[2024-10-23] MEDS: Metoprolol Succinate ER 25 MG TAB.ER.24H PO (08:34)
[2024-10-23] MEDS: Gabapentin 100 MG CAPSULE PO (08:34)
[2024-10-23] MEDS: Folic Acid 1 MG TABLET PO (08:35)
[2024-10-23] MEDS: Docusate Sodium 100 MG CAPSULE PO (08:35)
[2024-10-23] MEDS: Magnesium Oxide 400 MG TABLET PO (08:35)
[2024-10-23] MEDS: 0.9 % Sodium Chloride Flush 3 ML SYRINGE IVFLUSH (08:36)
--- NOTE | 2024-10-23 10:34 | MHC.CLN ---
F/U DIET=REGULAR. SCOTT=12. SKIN WITH DTI TO SACRUM AND DTI TO LEFT HEEL. PO INTAKE VARIABLE, 25-100%. ADDING ENSURE BID TO PROMOTE SKIN INTEGRITY AND NUTRITIONAL INTAKE. SUPPLEMENT PROVIDES 700 KCALS, 40 G PROTEIN. FOLLOW FOR PO INTAKE AND SKIN INTEGRIY.
--- NOTE | 2024-10-23 11:56 | PM.DS ---
DS: Providers Provider Date of Service: 10/23/24 Date of admission: 10/18/24 23:32 Date of discharge: 10/23/24 Primary care physician: Buster Hyde MD Consults: 10/20/24 05:51 Consult to Infectious Diseases Routine Consulting Provider: [facility] Reason for consultation: cdiff infection 10/21/24 08:36 Consult to Wound Care Routine Reason for consultation: open skin to buttock Attending physician on discharge: Bryn Santana Discharging clinician: Aysha Walters DS: Diagnosis Discharge Diagnosis (1) Clostridioides difficile infection: Status: Acute DS: Summary Hospital Course Hospital Course: From H&P on the day of admission Patient is an 84-year-old female with a past medical history significant for alzheimers dementia, pafib, htn, hld, tia, carotid stenosis, pvd, who presented to the ED today due to lethargy reported by the patient's family and [employer]. She has dementia and is alert and oriented x2 at baseline. She reports nausea and vomiting today but is unable to give me any information regarding this including frequency or description if any blood or bilious vomiting. She denies any blood in the stool, diarrhea, headache, neck pain or sensitivity to light. She also denies any urinary symptoms including frequency, urgency or dysuria. She has not have a cough or any upper respiratory symptoms. There was a question of a subjective fever around 100. Patient's nurse also reports that the patient was calling out last night at her nursing facility which is abnormal behavior for her. Acute metabolic encephalopathy. confused at baseline due to underlying dementia, seems to be near baseline initially suspected due to UTI and sepsis Urine C&S negative and antibiotics stopped. blood cx negative to date Diarrhea C. diff PCR + toxin negative. likely colonization vs true infection. GI panel +for norovirus as likely cause of diarrhea. initially treated with oral vancomycin, intially planned to stop vanco as alternative cause of diarrhea but ultimately ID recommended 8 days of po vancomycin - will send to the pharmacy. also consider treatment with po vanco if needs treatment with antibiotics in the future. diarrhea has resolved at this time. Hypokalemia. improved with placement Time Attestation Discharge Coordination Time (in mins): 36 Quality: Safe Use of Opioids Does Pt have an Active Cancer Diagnosis on the Problem List?: No Quality: Stroke Does the patient have a stroke diagnosis?: No Physical Exam Vital Signs: Vital Signs: Last Vital Signs Temp 97.6 F 10/23/24 08:00 Pulse 74 10/23/24 08:00 Resp 16 10/23/24 08:00 BP 137/91 H 10/23/24 08:00 Pulse Ox 96 10/23/24 08:00 O2 Del Method Room Air 10/23/24 08:00 BMI result Body Mass Index 35.8 Const: General: cooperative, no acute distress, alert and awake Nutritional Appearance: obese Orientation/consciousness: oriented to person Resp: Effort & Inspection: normal respiratory effort, able to speak in complete sentences, no respiratory distress and no use of accessory muscles Cardio: Rate: regular rate GI: Inspection: No distended Palpation (GI): Soft to palpation Neuro: Other: left hand/arm contracture General: oriented to person Extrem: General: Yes no pedal edema DS: Data Data Completed and Pending Completed studies during hospitalization [Text1]: Procedures Extirpation of Matter from Left Upper Leg Subcutaneous Tissue and Fascia, Open Approach (01/16/24) Release Left Upper Leg Muscle, Open Approach (01/16/24) Reposition Left Lower Femur with Intramedullary Internal Fixation Device, Percutaneous Approach (01/06/24) Restriction of Left Femoral Artery with Intraluminal Device, Percutaneous Approach (01/16/24) Transfusion of Nonautologous Red Blood Cells into Peripheral Vein, Percutaneous Approach (01/16/24) Labs on day of discharge: Laboratory Results - last 24 hr 10/23/24 05:50 Creatinine 0.49 L Estim Creat Clear Calc 98.7 Estimated GFR > 60 Preliminary micro results at discharge 10/18/24 19:41 Blood Culture - Preliminary Blood - Venous No growth after 48 hours. 10/18/24 19:41 Blood Culture - Preliminary Blood - Venous No growth after 48 hours. Discharge Plan Discharge Anticipated Discharge Date/Time: 10/23/24 13:03 Patient Disposition: Home, Self-Care Discharge Diagnosis: norovirus Referrals: Buster Hyde MD [Primary Care Provider] - 1 Week Discharge Medications: New lisinopril 20 mg Tablet 20 mg PO DAILY 90 Days Qty: 90 0RF Protocol: Hold for SBP< HOLD for SBP < : 90 vancomycin 125 mg Capsule 125 mg PO Q6H 8 Days Qty: 32 0RF Continued atorvastatin 10 mg tablet 10 mg PO BEDTIME gabapentin 100 mg capsule 100 mg PO TID metoprolol succinate 25 mg tablet extended release 24 hr 25 mg PO DAILY memantine 5 mg tablet 5 mg PO BID cholecalciferol (vitamin D3) 25 mcg (1,000 unit) tablet 25 mcg PO DAILY ferrous sulfate 324 mg (65 mg iron) tablet,delayed release (DR/EC) 324 mg PO DAILY mirabegron [Myrbetriq] 50 mg tablet extended release 24 hr 50 mg PO DAILY Eliquis 5 mg tablet 5 mg PO BID multivitamin Tablet 1 tab PO DAILY sennosides [senna] 8.6 mg Tablet 8.6 mg PO BEDTIME Rx Instructions: HOLD FOR LOOSE STOOL acetaminophen 500 mg Tablet 1,000 mg PO Q4H PRN (Reason: Fever Or Pain) docusate sodium 100 mg Tablet 100 mg PO DAILY silver sulfadiazine [SSD] 1 % cream 1 appl topical BID PRN (Reason: Rash) calcium carbonate 500 mg calcium (1,250 mg) Tablet 500 mg PO DAILY folic acid 1 mg Tablet 1 mg PO DAILY magnesium oxide 400 mg magnesium Tablet 400 mg PO DAILY Discontinued lisinopril 5 mg tablet 5 mg PO DAILY Discharge Orders: Discharge Order (Routine); Ordered 10/23/24 Ordered By: Aysha Walters Activity on Discharge: As tolerated Stand Alone Forms: Patient Portal Discharge page Print Language: Guamanian Care Plan Goals: see below Health Concerns: diarrhea due to norovirus cdif colonization - complete 8 more days po vancomycin Plan of Treatment: symptomatic support dose of lisinopril increased for adequate blood pressure control diarrhea from norovirus. improved. outpatient follow up with PCP as needed Assessment: see discharge summary Discharge Date/Time: 10/23/24 16:26
[2024-10-23 12:00] VITALS: BP 134/70; PULSE 72; RESP 18; TEMP 36.3; O2SAT 96
--- NOTE | 2024-10-23 14:32 | MHC.CM.PN ---
Per MD rounds patient medically cleared for dc home w/ resumption of private pay care. CM spoke w/ son/HCP Horacio @ 11am. Will transport home at 4pm. IMM delivered.
[2024-10-23 15:25] VITALS: BP 175/78; PULSE 94; RESP 16; TEMP 36.9; O2SAT 96
== END 2024-10-23 16:26 | disposition home or self-care (01) | DRG 871 ==
LOC: HO.ED 21:02 → HO.EDOVER 23:38 → HO.S3 10-21 07:34
PROVIDERS: Family Medicine; Nurse Practitioner Acute Care; Student in an Organized Health Care Education/Training Program; Admitting Provider Physician Assistant; Emergency Provider Emergency Medicine Emergency Medical Services; PCP Internal Medicine; Visit Provider Physician Assistant Medical
DX: A41.9 Sepsis, unspecified organism (principal); G93.41 Metabolic encephalopathy; F02.818 Dementia in other diseases classified elsewhere, unspecified severity, with other behavioral disturbance; A08.11 Acute gastroenteropathy due to Norwalk agent; I25.10 Atherosclerotic heart disease of native coronary artery without angina pectoris; I48.0 Paroxysmal atrial fibrillation; G30.9 Alzheimer's disease, unspecified; Z22.1 Carrier of other intestinal infectious diseases; E87.6 Hypokalemia; Z20.822 Contact with and (suspected) exposure to COVID-19; Z87.440 Personal history of urinary (tract) infections; Z79.01 Long term (current) use of anticoagulants; Z79.899 Other long term (current) drug therapy
CPT/HCPCS: 0241U; 36415; 70450; 71045; 74177; 80048; 80202; 81001; 82565; 82803; 82947; 83605; 83735; 85007; 85025; 85027; 87040; 87086; 87324; 87493; 87507; 93005; 99285; J0696; J2543; J3371; J3480; J7120; Q9967

== ENCOUNTER → 2024-10-18 17:05 | Outpatient (BNV) | payer MEDICARE, SELFPAY | PROVIDERS: Admitting Provider Physician Assistant; Emergency Provider Emergency Medicine Emergency Medical Services; PCP Internal Medicine; Visit Provider Internal Medicine Cardiovascular Disease | DX: I49.8 Other specified cardiac arrhythmias (principal) | CPT/HCPCS: 93010 ==

== ENCOUNTER → 2024-10-18 17:05 | Outpatient (BNV) | payer MEDICARE, SELFPAY | PROVIDERS: Emergency Provider Emergency Medicine Emergency Medical Services; PCP Internal Medicine; Visit Provider Radiology Diagnostic Radiology | DX: R07.9 Chest pain, unspecified (principal); N83.202 Unspecified ovarian cyst, left side; K57.30 Diverticulosis of large intestine without perforation or abscess without bleeding | CPT/HCPCS: 71045; 74177 ==

== ENCOUNTER 2024-10-18 23:32 | Outpatient (BNV) | payer MEDICARE, SELFPAY | END 2024-10-19 01:30 | PROVIDERS: Admitting Provider Physician Assistant; Emergency Provider Emergency Medicine Emergency Medical Services; PCP Internal Medicine; Visit Provider Radiology Neuroradiology | DX: R53.83 Other fatigue (principal) | CPT/HCPCS: 70450 ==

== ENCOUNTER → 2024-10-18 23:32 | Outpatient (BNV) | payer MEDICARE, SELFPAY | PROVIDERS: Admitting Provider Physician Assistant; Emergency Provider Emergency Medicine Emergency Medical Services; PCP Internal Medicine; Visit Provider Physician Assistant | DX: R19.7 Diarrhea, unspecified (principal) | CPT/HCPCS: 99223; 99232; 99239; 99499 ==

== ENCOUNTER → 2024-10-18 23:32 | Outpatient (BNV) | payer MEDICARE, SELFPAY | PROVIDERS: Admitting Provider Physician Assistant; Emergency Provider Emergency Medicine Emergency Medical Services; PCP Internal Medicine; Visit Provider Internal Medicine | DX: A49.8 Other bacterial infections of unspecified site (principal) | CPT/HCPCS: 99222 ==

== ENCOUNTER 2025-09-12 11:48 | Inpatient (IN) | payer MEDICARE, SELFPAY ==
[2025-09-12] VITALS (7 sets, daily range): BP systolic 116–173; BP diastolic 67–132; PULSE 70–102; RESP 12–20; TEMP 36.6–37.7; O2SAT 93–100; BMI 25.1; BMI 26.3
--- NOTE | 2025-09-12 | EEG_ITS ---
History: 85 years old woman who probably has [id number] degenerative dementia with significant cortical and anterior temporal lobe atrophy noted on her brain scan came to hospital after prolonged seizure. Details of seizures were unclear but apparently she had many minutes of seizure and was given benzodiazepine and was brought here. She was unable to communicate and not able to provide any history. Medications: Acetaminophen, Calcium Carbonate, Diazepam, Levetiracetam (Keppra), Magnesium Hydroxide, Melatonin, Pantoprazole Sodium, Sodium Chloride Technical Description Photic Stimulation: omitted Hyperventilation: omitted Behavioral State: pleasant State of Consciousness: unknown Skull Defect: none Sedation: none Handedness: unknown Duration: 23 min 47 sec Description: This is a 16 channel EEG performed on portable machine and patient's room. Patient is unresponsive during the tracing. There was almost continuous movement of forehead and facial musculature limiting EEG interpretation. It resulted in continuous muscle artifacts. Background EEG rhythm seems to be asymmetrical with somewhat lower amplitude noted left hemispheric leads. In right hemispheric leads, generalized theta to delta range slowing with intermittent sharp and slow wave complexes were noted. No definite seizure was noted. Photic stimulation and hyperventilation were not performed. Cardiac lead did not reveal any significant arrhythmia. Impression: Abnormal EEG revealing asymmetry with somewhat lower amplitude in left hemispheric leads and severe slowing and intermittent ictal discharges from right hemisphere with no obvious seizure noted. MTDD
--- NOTE | ~2025-09-12 | XR_ITS ---
CLINICAL HISTORY: dyspnea 1 view chest x-ray Comparison: Prior chest radiographs most recently 10/18/2024 Findings: Low lung volumes that limits overall parenchymal evaluation. No dense consolidation. Component of interstitial crowding. Normal heart size and central pulmonary vascularity when accounting for low lung volumes. No acute soft tissue or osseous abnormality. Impression: 1. Hypoventilatory exam without obvious acute cardiopulmonary abnormality identified. This document has been electronically signed by: Reece Gaffney MD on 09/12/2025 13:59:13
--- NOTE | ~2025-09-12 | CT_ITS ---
CLINICAL HISTORY: new onset seizure CT head without contrast Comparison: CT head 10/19/2024 Findings: No intra-axial mass, midline shift, hydrocephalus, or acute hemorrhage. Moderate atrophy-like change and white matter disease. The visualized paranasal sinuses and mastoid air cells are normal. The orbits are within normal limits. There is no acute fracture. IMPRESSION: 1. No acute intracranial findings. This document has been electronically signed by: Reece Gaffney MD on 09/12/2025 15:19:59
--- NOTE | ~2025-09-12 | MR_ITS ---
EXAMINATION: MR BRAIN WITHOUT CONTRAST CLINICAL INFORMATION: Seizure. Left upper extremity contracture. COMPARISON: Correlated to CT dated September 22, 2025. TECHNIQUE: MRI of the brain was obtained using routine sequences without contrast. FINDINGS: Patient's motion artifact. There is a focal hyperintense T2 FLAIR restricted diffusion without susceptibility centered in the left thalamus. Bilateral multifocal patchy deep periventricular white matter hyperintense T2 FLAIR signal involving centrum semiovale and menjivar radiata. Probable artifactual slight increased signal on the diffusion-weighted image right temporal occipital subcortical white matter. Prominence of the extra-axial CSF spaces cerebral sulci and ventricles. Old lacunar infarct, basal ganglia and menjivar radiata white matter. Flow-void signal within the main cerebral vessels is normal. Sellar/suprasellar region is normal. Craniocervical junction demonstrates normal position of the cerebellar tonsils. MR/MR head/brain wo con IMPRESSION: Acute nonhemorrhagic ischemia/stroke, left thalamus. White matter disease likely related to small vessel disease. Probable artifactual DWI signal, right temporal occipital. Bifrontal temporal lobe atrophy. [employer] message sent to the requesting physician Dr. Luis Alberto Alvarenga at 1:27 PM on September 23, 2025. Electronically signed by: Sánchez Villalpando MD 09/13/2025 01:28 PM [facility]
--- NOTE | 2025-09-12 12:03 | ECG_ITS ---
Test Reason : SEIZURE Blood Pressure : */* mmHG Vent. Rate : 98 BPM Atrial Rate : 98 BPM P-R Int : 166 ms QRS Dur : 76 ms QT Int : 392 ms P-R-T Axes : 72 45 30 degrees QTcB Int : 500 ms Poor data quality Normal sinus rhythm Nonspecific ST and T wave abnormality Prolonged QT Abnormal ECG When compared with ECG of 18-Oct-2024 17:13, Premature atrial complexes are no longer Present Nonspecific T wave abnormality, worse in Inferior leads Nonspecific T wave abnormality, improved in Lateral leads Referred By: Andre Donato Electronically Signed By: TERELL BRANNON MD
--- NOTE | 2025-09-12 12:03 | ED.SEIZURE ---
HPI - Seizure General Chief Complaint: Seizure Stated Complaint: SEIZURES Time Seen by Provider: 09/12/25 12:03 Source: family (pt's son) and EMS Mode of arrival: EMS Limitations: other (dementia, clinical condition) History of Present Illness ED Provider: HPI Narrative: 85-year-old woman without history of seizures presented with seizure noted by her OPERATIONS RESEARCH DIRECTOR, I also spoke to patient's son and healthcare proxy Jimbo Hernadez, patient is DNR DNI, this was confirmed by HCP he told me that he would like to make sure that patient receives medical care and is comfortable, my understanding is that by the time patient presented she has been having a seizure for about 20 minutes and received 5 mg of Versed from EMS, I did note that she has a seizure and also noted that she has left upper extremity contracture, son confirmed that this is not new and she has contractures, dementia, and her quality of life is very poor that was noted tonic and clonic activity in her extremities in her eyes had vertical ramez Related Data Home Medications ?Medication ?Instructions ?Recorded ?Confirmed apixaban 5 mg tablet (Eliquis) 5 mg PO BID 01/06/24 10/19/24 atorvastatin 10 mg tablet 10 mg PO BEDTIME 01/06/24 10/19/24 cholecalciferol (vitamin D3) 25 25 mcg PO DAILY 01/06/24 10/19/24 mcg (1,000 unit) tablet ferrous sulfate 324 mg (65 mg 324 mg PO DAILY 01/06/24 10/19/24 iron) tablet,delayed release gabapentin 100 mg capsule 100 mg PO TID 01/06/24 10/19/24 memantine 5 mg tablet 5 mg PO BID 01/06/24 10/19/24 metoprolol succinate 25 mg 25 mg PO DAILY 01/06/24 10/19/24 tablet,extended release 24 hr mirabegron 50 mg tablet,extended 50 mg PO DAILY 01/06/24 10/19/24 release 24 hr (Myrbetriq) multivitamin 1 tab PO DAILY 01/06/24 10/19/24 acetaminophen 500 mg tablet 1,000 mg PO Q4H PRN Fever Or Pain 01/16/24 10/19/24 docusate sodium 100 mg tablet 100 mg PO DAILY 01/16/24 10/19/24 sennosides 8.6 mg tablet (senna) 8.6 mg PO BEDTIME 01/16/24 10/19/24 silver sulfadiazine 1 % topical 1 appl topical BID PRN Rash 05/14/24 10/19/24 cream (SSD) calcium carbonate 500 mg PO DAILY 10/19/24 10/19/24 folic acid 1 mg tablet 1 mg PO DAILY 10/19/24 10/19/24 magnesium oxide 400 mg PO DAILY 10/19/24 10/19/24 Previous Rx's ?Medication ?Instructions ?Recorded lisinopril 20 mg tablet 20 mg PO DAILY 90 days #90 tabs 10/23/24 vancomycin 125 mg capsule 125 mg PO Q6H 8 days #32 caps 10/23/24 Allergies Allergy/AdvReac Type Severity Reaction Status Date / Time gentamicin (GENTAMICIN) Allergy Intermediate SWELLING Verified 09/12/25 11:59 sulfamethoxazole (From Allergy Intermediate RASH Verified 09/12/25 11:59 BACTRIM) trimethoprim (From BACTRIM) Allergy Intermediate RASH Verified 09/12/25 11:59 Review of Systems Review of Systems: Yes Unobtainable due to mental condition [facility] Past Medical History Medical History (Updated 09/12/25 @ 15:56 by Andre Donato DO) Obesity (BMI 30-39.9) Dementia with behavioral problem Delirium due to another medical condition PAD (peripheral artery disease) Dementia Paroxysmal atrial fibrillation Peripheral neuropathy TIA (transient ischemic attack) Foot drop Carotid artery stenosis Afib Hyperlipidemia Anemia Hypertension Surgical History S/P aortogram with runoff H/O foot surgery History of bilateral knee replacement H/O tubal ligation History of cholecystectomy H/O endarterectomy Social History Social History Household Members: Unknown / Unable to assess Household Members Other:: pt states home with son and also states snf so unsure Housing: Unknown / Unable to assess Unable to assess alcohol history related to: Unable to respond Alcohol intake: former Comment: as per previous Patient Tobacco Use Status: Never used Tobacco Smoked in Last 30 Days: No Use of substances other than those prescribed or required for medical reasons: Unable to respond Advance Directives: Yes Advance Directives on File: Yes Advance Directives Date on File: 01/13/24 Do you have a plan to hurt others: No Plan service: No Physical Exam Exam: Exam: General: Elderly, chronically ill-appearing, no facial trauma noted 2 mm reactive Neck: Supple, no LAD CV: S1-S2 Resp: ? non stridorous moving air well Abd: ?Bowel sounds are present, no distention MSK: contracted left upper extremity held in flexion, bilateral lower extremity contractures Skin: sacral decubitus ulcer noninfected Neuro: ? usually patient is alert and somewhat interaction all, presented nonverbal not responsive to any stimulus Vital Signs: Vital Signs: Last Vital Signs Temp 99.5 F 09/12/25 15:45 Pulse 102 H 09/12/25 15:45 Resp 14 09/12/25 15:45 BP 124/87 09/12/25 15:45 Pulse Ox 93 09/12/25 15:45 O2 Del Method Room Air 09/12/25 15:45 BMI result Body Mass Index 25.1 Medications Administered Discontinued Medications Generic Name Dose Route Start Last Admin Trade Name Freq PRN Reason Stop Dose Admin Diazepam 5 mg 09/12/25 12:04 09/12/25 12:27 Diazepam 10 Mg/2 Ml Cartridge IVPUSH 09/12/25 12:05 5 mg STAT STA Administration Sodium Chloride 1,000 mls @ 999 mls/hr 09/12/25 12:15 09/12/25 14:47 Ns IV 09/12/25 13:15 Infused .Q1H1M MARKEL Infusion Levetiracetam 3,000 mg/ Sodium 130 mls @ 520 mls/hr 09/12/25 12:04 09/12/25 13:01 Chloride IV 09/12/25 12:18 Infused ONCE ONE Infusion Medical Decision Making Medical Decision Making [facility] Narrative: 12:29 PM 09/12/2025 (Dr. Andre Donato): patient presented with seizure lasting at least 20 minutes according to EMS, fail to be 2 5 mg of Versed, I administered 5 mg of Valium and was discussing with her son further care whether patient would need to be intubated if she was not status epilepticus, patient did respond to 5 mg of Valium and I did load her with levetiracetam, she has no history of seizures, there was no trauma, patient's son does not live with her, and OPERATIONS RESEARCH DIRECTOR that presented is able to provide very minimal information, EMS was also not really able to provide additional information because the OPERATIONS RESEARCH DIRECTOR was quite limited, but the son did discuss with me that patient is DNR DNI, she has poor quality of life, he has no issues with her being admitted for further monitoring and management and he did confirm she has no history of seizures giving her age and lack of support at home with new onset of seizure will be aiming to admit 1:26 PM 09/12/2025 (Dr. Andre Donato): slight troponin elevation a lactic of 2.6 is due to seizure and does not constitute infectious etiology 3:41 PM 09/12/2025 (Dr. Andre Donato): Spoke to patient's daughter Yenni( listed in our system as HCP but her brother is the power of corporate associate attorney), she has had some additional concerns about the care mom received of the hands of the brother but it sounds like there is difficult family dynamic, we will reach out to brother who is the power of corporate associate attorney regarding palliative care because daughter states she was bringing it up sometime back and I will see if her brother agrees 3:44 PM 09/12/2025 (Dr. Andre Donato): brother did not olive picker, left a message, urine with some bacteria, we will cover with IV antibiotics given the fact that she is also tachycardic, and slight troponin elevation, and lactic elevation at this point meets septic criteria 3:51 PM 09/12/2025 (Dr. Andre Donato): for now her son wants her to be admitted and figure out seizure management and then if she is going to be palliative care that is to be determined but he does not want any people in the house and I think it would be useful to have case management involvement as well Differential Diagnosis Differential Diagnoses: The differential diagnosis associated with the presentation includes ( stroke, bleed, seizure, hyponatremia, hypoglycemia, trauma) Admission/Observation Consideration of admission/observation: Escalation of care including admission/observation considered Lab Data MDM Lab Attestation statement: I reviewed the patient's lab results. 09/12/25 12:20 09/12/25 12:20 Labs: Lab Results 09/12/25 09/12/25 09/12/25 Range/Units 12:01 12:20 12:35 WBC 8.7 (4.8-10.8) X10*3/uL RBC 5.36 D (4.20-5.50) X10*6/uL Hgb 16.8 H D (12.0-16.0) g/dl Hct 50.1 H D (37.0-47.0) % MCV 93.5 (80.0-98.0) fL MCH 31.3 (27.0-33.0) pg MCHC 33.5 (31.0-35.0) g/dl RDW 12.9 (11.0-16.0) % Plt Count 230 D (160-400) X10*3/uL MPV 12.0 (9.4-12.3) fL Immature Gran % (Auto) 1.0 H (0.0-0.4) % Neut % (Auto) 90.5 H (45-73) % Lymph % (Auto) 6.4 L (20-40) % Daniels % (Auto) 1.8 L (2-11) % Eos % (Auto) 0.2 (0-4) % Baso % (Auto) 0.1 (0-2) % Lymph # (Auto) 0.6 L (1.2-4.9) X10*3/uL Daniels # (Auto) 0.2 (0.1-1.2) X10*3/uL Eos # (Auto) 0.0 (0.0-0.4) X10*3/uL Baso # (Auto) 0.0 (0.0-0.2) X10*3/uL Abs Immat Gran (auto) 0.09 H (0.00-0.03) X10*3/uL Absolute Neuts (auto) 7.9 (2.0-8.3) x10*3/uL Absolute Nucleated RBC 0.000 (0.0-0.012) X10*3/uL Nucleated RBC % (auto) 0.0 (0.0-0.2) /100WBC Smear Tech's Comments VERIFIED PT 12.2 (11.2-13.5) SEC INR 1.0 (0.9-1.1) VBG pH 7.40 (7.32-7.43) VBG pCO2 35 mmHg VBG pO2 131 mmHg VBG HCO3 22 (22-26) mmol/L VBG O2 Saturation 100.0 % VBG Base Excess -1.4 mmol/L Sodium 143 (135-145) mmol/L Potassium 3.4 (3.3-5.1) mmol/L Chloride 106 (96-108) mmol/L Carbon Dioxide 23 (22-29) mmol/L Anion Gap 17 (12-20) BUN 8 L (9-16) mg/dL Creatinine 0.55 (0.5-1.4) mg/dL Estim Creat Clear Calc 78.1 Estimated GFR > 60 POC Glucose 140 H (60-115) mg/dL Random Glucose 162 H (60-115) mg/dL Lactic Acid 2.6 H* (0.5-2.0) mmol/L Lactic Acid F/U @ 2Hr (0.5-2.0) mmol/L Calcium 9.9 D (8.4-10.2) mg/dL Magnesium 1.9 (1.6-2.6) mg/dL Total Bilirubin 0.8 (0.0-1.0) mg/dL AST 27 (5-31) U/L ALT 21 (0-31) U/L Alkaline Phosphatase 95 (39-117) U/L Troponin I High Sens 31.5 H D (<3.5-17.0) ng/L Total Protein 7.7 (6.5-8.0) g/dL Albumin 4.4 (3.5-5.0) g/dL Lipase 7 L (8-78) U/L Urine Color Urine Appearance Urine pH (5.0-9.0) Ur Specific Pearl (1.005-1.025) Urine Protein (Neg-Trace) mg/dL Urine Glucose (UA) (Negative) mg/dL Urine Ketones (Negative) mg/dL Urine Blood (Negative) Urine Nitrite (Negative) Ur Leukocyte Esterase (Negative) Urine RBC (0-2) /HPF Urine WBC (0-5) /HPF Ur Squamous Epith Cells (0-2) /HPF Urine Bacteria (None Seen) Hyaline Casts (0-2) /LPF 09/12/25 09/12/25 Range/Units 14:50 14:58 WBC (4.8-10.8) X10*3/uL RBC (4.20-5.50) X10*6/uL Hgb (12.0-16.0) g/dl Hct (37.0-47.0) % MCV (80.0-98.0) fL MCH (27.0-33.0) pg MCHC (31.0-35.0) g/dl RDW (11.0-16.0) % Plt Count (160-400) X10*3/uL MPV (9.4-12.3) fL Immature Gran % (Auto) (0.0-0.4) % Neut % (Auto) (45-73) % Lymph % (Auto) (20-40) % Daniels % (Auto) (2-11) % Eos % (Auto) (0-4) % Baso % (Auto) (0-2) % Lymph # (Auto) (1.2-4.9) X10*3/uL Daniels # (Auto) (0.1-1.2) X10*3/uL Eos # (Auto) (0.0-0.4) X10*3/uL Baso # (Auto) (0.0-0.2) X10*3/uL Abs Immat Gran (auto) (0.00-0.03) X10*3/uL Absolute Neuts (auto) (2.0-8.3) x10*3/uL Absolute Nucleated RBC (0.0-0.012) X10*3/uL Nucleated RBC % (auto) (0.0-0.2) /100WBC Smear Tech's Comments PT (11.2-13.5) SEC INR (0.9-1.1) VBG pH (7.32-7.43) VBG pCO2 mmHg VBG pO2 mmHg VBG HCO3 (22-26) mmol/L VBG O2 Saturation % VBG Base Excess mmol/L Sodium (135-145) mmol/L Potassium (3.3-5.1) mmol/L Chloride (96-108) mmol/L Carbon Dioxide (22-29) mmol/L Anion Gap (12-20) BUN (9-16) mg/dL Creatinine (0.5-1.4) mg/dL Estim Creat Clear Calc Estimated GFR POC Glucose (60-115) mg/dL Random Glucose (60-115) mg/dL Lactic Acid (0.5-2.0) mmol/L Lactic Acid F/U @ 2Hr 2.0 (0.5-2.0) mmol/L Calcium (8.4-10.2) mg/dL Magnesium (1.6-2.6) mg/dL Total Bilirubin (0.0-1.0) mg/dL AST (5-31) U/L ALT (0-31) U/L Alkaline Phosphatase (39-117) U/L Troponin I High Sens (<3.5-17.0) ng/L Total Protein (6.5-8.0) g/dL Albumin (3.5-5.0) g/dL Lipase (8-78) U/L Urine Color Yellow Urine Appearance Cloudy Urine pH 7.0 (5.0-9.0) Ur Specific Pearl 1.015 (1.005-1.025) Urine Protein 100 (2+) H (Neg-Trace) mg/dL Urine Glucose (UA) 250 H (Negative) mg/dL Urine Ketones >=160 (Negative) mg/dL Urine Blood Trace H (Negative) Urine Nitrite Negative (Negative) Ur Leukocyte Esterase Negative (Negative) Urine RBC 0-2 (0-2) /HPF Urine WBC 0-5 (0-5) /HPF Ur Squamous Epith Cells 0-2 (0-2) /HPF Urine Bacteria 2+ (None Seen) Hyaline Casts 0-2 (0-2) /LPF Independent Interpretation I performed an independent interpretation of an: EKG ( 98 beats per minute no underlying dysrhythmia, no QTC prolongation no evidence for ACS) and Plain X-Ray ( x-ray of the chest with left lung partially obscured by hand) Radiology Impression Discussion of test interpretation with radiology: I have reviewed the radiologist's reading. Independent Historian Clinical information obtained from an independent historian. History obtained from or confirmed by: EMS and Other ( healthcare proxy) Critical Care Time Critical Care Time Critical Care Time: Yes Total Critical Care Time: 60 Attestation: Time is exclusive of separately billable procedures. Time includes: direct patient care, patient reassessment, coordination of patient care, interpretation of data (laboratory data, pulse oximetry, arterial blood gases and chest xrays), review of patient's medical records, medical consultation and documentation of patient care. Procedures excluded from critical care time: central intravenous line placement and electrocardiography. Discharge Plan Discharge Clinical Impression: Epileptic seizure, Bedbound, Decubitus ulcer, stage III Prescriptions: No Action atorvastatin 10 mg tablet 10 mg PO BEDTIME gabapentin 100 mg capsule 100 mg PO TID metoprolol succinate 25 mg tablet extended release 24 hr 25 mg PO DAILY memantine 5 mg tablet 5 mg PO BID cholecalciferol (vitamin D3) 25 mcg (1,000 unit) tablet 25 mcg PO DAILY ferrous sulfate 324 mg (65 mg iron) tablet,delayed release (DR/EC) 324 mg PO DAILY mirabegron [Myrbetriq] 50 mg tablet extended release 24 hr 50 mg PO DAILY Eliquis 5 mg tablet 5 mg PO BID multivitamin Tablet 1 tab PO DAILY sennosides [senna] 8.6 mg Tablet 8.6 mg PO BEDTIME Rx Instructions: HOLD FOR LOOSE STOOL acetaminophen 500 mg Tablet 1,000 mg PO Q4H PRN (Reason: Fever Or Pain) docusate sodium 100 mg Tablet 100 mg PO DAILY silver sulfadiazine [SSD] 1 % cream 1 appl topical BID PRN (Reason: Rash) calcium carbonate 500 mg calcium (1,250 mg) Tablet 500 mg PO DAILY folic acid 1 mg Tablet 1 mg PO DAILY magnesium oxide 400 mg magnesium Tablet 400 mg PO DAILY lisinopril 20 mg Tablet 20 mg PO DAILY 90 Days Qty: 90 0RF Protocol: Hold for SBP< HOLD for SBP < : 90 vancomycin 125 mg Capsule 125 mg PO Q6H 8 Days Qty: 32 0RF Print Language: Vietnamese
[2025-09-12 12:05] LABS: Glucose, Whole Blood 140 mg/dL (60-115)
[2025-09-12] MEDS: levETIRAcetam 3,000 MG in 0.9 % Sodium Chloride 100 ML 520 MG IV (12:17)
[2025-09-12] MEDS: diazePAM 10 MG/2 ML CARTRIDGE 5 MG IVPUSH (12:27)
--- OUTSIDE RECORDS SUMMARY | 2025-09-12 12:31 | XMS_ITS | Encounter Summary ---
Author Organization [facility] Prior to 08/07/2024 Address [address] [place] [address] Care Team Providers Care Health Unit Supervisor Name Role Phone Buster Hyde Primary Care Provider [phone] Claire Linn MD Unavailable [phone] Renetta Morales DNP Unavailable [phone] Reason for Visit * Reason Onset Date Comments medication problems 01/02/2024 Encounter Details Date Type Department Care Team Description 01/02/2024 Telephone Adult Medicine [address] [address] Buster Hyde [address] [place] [address] [id number] medication problems Social History Tobacco Use Types Packs/Day Years Used Date Smoking Tobacco: Never Smokeless Tobacco: Never Alcohol Use Standard Drinks/Week Comments Yes 0 (1 standard drink = 0.6 oz pur e alcohol) socially Sex Assigned at Date Recorded Not on file Job Start Date Occupation Industry Not on file Not on file Not on file documented as of this encounter Miscellaneous Notes * Telephone Encounter - Margaret Hickey M.A. - 01/03/2024 2:30 PM EDT Pt and her home Physical Therapist advised of Juliann's message. She undrstands and will relay it to the Pt's son. * Telephone Encounter - Katiuska Marin RN - 01/02/2024 2:21 PM EDT Called and spoke to pt. She was prescribed macrobid 100 mg for a UTI. She has not taken this medication as her son is requesting a different antibiotic. Apparently she has taken this medication in the past and was sent to the ER as a result. * Telephone Encounter - Bernardo Lowry - 01/02/2024 1:50 PM EDT Who is calling? CORNER BEAD OPERATOR Name of the medication nitrofurantoin, macrocrystal-monohydrate, (MACROBID) 100 MG capsule What is the specific problem or interaction? Patient CORNER BEAD OPERATOR state patient is allergic to this medication If the patient is having a problem with taking the med - how long has the problem been going on? N/A documented in this encounter Plan of Treatment Not on file documented as of this encounter Visit Diagnoses Not on filedocumented in this encounter Care Teams Health Unit Supervisor Relationship Specialty Start Date End Date Buster Hyde [address] [place] [address] PCP - General Internal Medicine 03/20/22 Claire Lnin MD [address] [place] [address] Specialist Cardiology 05/01/22 Renetta Morales DNP [address] [place] [address] Specialist Cardiology 05/01/22 documented as of this encounter
--- OUTSIDE RECORDS SUMMARY | 2025-09-12 12:31 | XMS_ITS | Encounter Summary ---
Author Organization [facility] Prior to 08/07/2024 Address [address] [place] [address] Care Team Providers Care Airport Utility Worker Name Role Phone Tricia Kaur MD Primary Care Provider Unava ilable Ana Moreno MD Primary Care Provider Unavailab Lucien Wilkins MD Primary Care Provider [phone] Buster Hyde Primary Care Provider [phone] Claire Linn MD Unavailable [phone] Renetta Morales DNP Unavailable [phone] Encounter Details Date Type Department Care Team Description 10/27/2020 SNF discharge summary Medical Records [address] [place] [id number] Abstract, Provider Social History Tobacco Use Types Packs/Day Years Used Date Smoking Tobacco: Never Smokeless Tobacco: Never Alcohol Use Standard Drinks/Week Comments Yes 0 (1 standard drink = 0.6 oz pur e alcohol) socially Sex Assigned at Date Recorded Not on file Job Start Date Occupation Industry Not on file Not on file Not on file documented as of this encounter Plan of Treatment Not on file documented as of this encounter Visit Diagnoses Not on filedocumented in this encounter Care Teams Airport Utility Worker Relationship Specialty Start Date End Date Tricia Kaur MD PCP - General 04/16/11 04/18/21 Ana Moreno MD PCP - General Internal Medicine 04/19/21 09/14/21 Lucien Le MD [address] [place] [id number] PCP - General Internal Medicine 09/15/21 03/19/22 Buster Hyde [address] [place] [address] PCP - General Internal Medicine 03/20/22 Claire Linn MD [address] [place] [address] Specialist Cardiology 05/01/22 Renetta Morales DNP [address] [place] [id number] Specialist Cardiology 05/01/22 documented as of this encounter
--- OUTSIDE RECORDS SUMMARY | 2025-09-12 12:31 | XMS_ITS | Encounter Summary ---
Author Organization [facility] Prior to 08/07/2024 Address [address] [place] [address] Care Team Providers Care Grain Distributor Name Role Phone Buster Hyde Primary Care Provider [phone] Claire Linn MD Unavailable [phone] Renetat Morales DNP Unavailable [phone] Reason for Visit * Reason Onset Date Comments Faxed Order 04/23/2024 Encounter Details Date Type Department Care Team Description 04/23/2024 Telephone Adult Medicine [address] [address] Buster Hyde [address] [place] [address] [phone] Faxed Order Social History Tobacco Use Types Packs/Day Years [...] encounter Miscellaneous Notes * Telephone Encounter - Cayla Dang - 04/23/2024 9:44 AM EDT [facility] [id number] placed in providers box. documented in this encounter Plan of Treatment Not on file documented as of this encounter Visit Diagnoses Not on filedocumented in this encounter Care Teams Grain Distributor Relationship Specialty Start Date End Date Buster Hyde [address] [place] [address] PCP - General Internal Medicine 03/20/22 Claire Linn MD [address] [place] [address] Specialist Cardiology 05/01/22 Renetta Morales DNP [address] [place] [address] Specialist Cardiology 05/01/22 documented as of this encounter
--- OUTSIDE RECORDS SUMMARY | 2025-09-12 12:31 | XMS_ITS | Encounter Summary ---
Author Organization [facility] Prior to 08/07/2024 Address [address] [place] [address] Care Team Providers Care Machine Cutter Name Role Phone Buster Hyde Primary Care Provider Claire Linn MD Unavailable [phone] Renetta Morales DNP Unavailable [phone] Reason for Visit * Reason Onset Date Comments Urinary Frequency/Urgency/Burning 07/07/2024 Encounter Details Date Type Department Care Team Description 07/07/2024 Telephone Adult Medicine [address] [phone] Buster Hyde [address] [place] [address] [phone] Urinary Frequency/Urgency/Burn ing Social History Tobacco Use Types Packs/Day Years [...] encounter Miscellaneous Notes * Telephone Encounter - Jaylyn Aggarwal M.A. - 07/08/2024 2:14 PM EDT Spoke with patient's son Jimbo, he states the ER didn't give her any antibiotics. Advised [facility] will send her a prescription, he did say to check her allergies because last time they sent abner medication she is allergic to. She will keep her upcoming appointment with Temi. * Telephone Encounter - Jaylyn Aggarwal M.A. - 07/08/2024 2:14 PM EDT Images from the original note were not included. Buster Hyde [facility] 2 hours ago (11:39 AM) NL Her urine exam was positive for urinary tract infection at [facility]. ??Please check with her if they have given any antibiotics for urinary tract infection, if not then I can send the antibiotic prescription. ??She should keep the upcoming appointment with Temi tomorrow * Telephone Encounter - Katiuska Marin RN - 07/08/2024 11:04 AM EDT Called and spoke to franklin Choi's son. Pt has been experiencing painful/frequent/urgent urination for < 1 week. Pt went to [facility] ER 07/06/24. They gricelda labs and collected a urine. He states the urine was cloudy. She hasa history of demetia. Pt is actively having hallucinations. No CP or SOB. No dizziness/lightheadedness. No N/V/D. They do not have a fever. They do not have abdominal pain. No difficulty with bowels.Their urine is cloudy yellow in color. Their urine does have a strong odor. There is not visible blood in their urine. They do have pain in their back and/or sides. She does not have vaginal symptoms and or discharge. An appointment was made for her to be seen in the office tomorrow at 11:30 am with Temi Jackson and he is in agreement with this plan. Pt is bedbound and does not walk. Her son uses a alberto lift to get her out of bed. She will be coming to the appointment in a wheelcchair. The son is wondering how we will collect a urine sample. * Telephone Encounter - Cally Adam - 07/08/2024 11:00 AM EDT Patients son returning call, requests call back * Telephone Encounter - Nuris Lawton R.N. - 07/07/2024 11:10 AM EDT Call to number given woman that answers states it is the [employer] number , she is not familiar with jeniffer . Call to pt's home number and left message * Telephone Encounter - Maryellen Mcmillan - 07/07/2024 10:47 AM EDT Symptoms patient is presenting: UTI symptoms- forgetful, combative, sleeping a lot, no appitate, urnine has a strong smell. For ALL patients calling to schedule any appointment (routine, sick visit, follow up, consult, etc.) in the outpatient setting please ask the following questions: ?? Do you have fever of higher than 101, sore throat with difficulty swallowing or severe shortnessof breath? NO If YES to any of these above symptoms, send a message to triage and do not book. Red dot. If no, an audio or video visit should be booked. ?? Have you had close contact with someone with Coronavirus in the last 14 days? NO ?? Have you traveled abroad? NO ?? Have you traveled recently to another state outside of [place], [place], [place], [place], [place], [place], [place]? NO o If yes, did you quarantine for 14 days or have a negative covid test? NO If yes to any of the above, patient is not to be scheduled in office until after 14 day quarantine or negative covid test. If pain or injury related was it due to an accident at work or from a motor vehicle accident? NO If yes, gather 3rd alliance party insurance information Date of accident/Injury: How long has patient had these symptoms?: 3-4 days PCP: Buster Hyde [place] / [place] / Product Type: MEDICARE [id number] documented in this encounter Plan of Treatment Not on file documented as of this encounter Visit Diagnoses Not on filedocumented in this encounter Care Teams Machine Cutter Relationship Specialty Start Date End Date Buster Hyde [address] [place] [address] PCP - General Internal Medicine 03/20/22 Claire Linn MD [address] [place] [address] Specialist Cardiology 05/01/22 Renetta Morales DNP [address] [place] [address] Specialist Cardiology 05/01/22 documented as of this encounter
--- OUTSIDE RECORDS SUMMARY | 2025-09-12 12:31 | XMS_ITS | Encounter Summary ---
Author Organization [facility] Prior to 08/07/2024 Address [address] [place] [address] Care Team Providers Care Translator/Interpreter Name Role Phone Buster Hyde Primary Care Provider Claire Linn MD Unavailable [phone] Renetta Morales DNP Unavailable [phone] Reason for Visit * Reason Onset Date Comments Faxed Order 11/13/2023 [facility] OT recertiofication Encounter Details Date Type Department Care Team Description 11/13/2023 Telephone Adult [address] [address] Buster Hyde [address] [place] [address] [phone] Faxed Order ([facility] OT recertiofication) Social History Tobacco Use Types Packs/Day Years [...] encounter Miscellaneous Notes * Telephone Encounter - Eddy Chen L.P.N. - 12/05/2023 10:04 AM EST Paper work received on Dr. Hyde's desk * Telephone Encounter - Eddy April L.P.N. - 12/04/2023 4:53 PM EST Called [facility] he will fax the orders he needs to [phone] att Eddy * Telephone Encounter - Hortencia Huggins M.A. - 12/04/2023 3:31 PM EST Eddy, Did you receive this? * Telephone Encounter - Cayetano Tong - 12/04/2023 3:22 PM EST Eli[facility] stating [facility] have not received the return fax. I confirmed the fax number below to be correct. Please refax. * Telephone Encounter - Eddy April L.P.N. - 11/25/2023 11:40 AM EST Sent a fax to [facility] [phone] Confirmaion received requested they send the orders they need sugned to [phone] * Telephone Encounter - Eddy April L.P.N. - 11/21/2023 1:07 PM EST Mihai Miller left a message for him to call me [phone] Thank you * Telephone Encounter - Eddy Chen L.P.NChristopher - 11/21/2023 12:43 PM EST . * Telephone Encounter - Hortencia Huggins M.A. - 11/21/2023 12:28 PM EST Eddy, Can you please help? Do you know anything about this? * Telephone Encounter - Steve Gamez - 11/21/2023 10:03 AM EST Eliu [employer] Service Asst. Is calling from [facility] on the behalf of the patient requesting recerifaction 3 occupationtal therapy and 1 for physical therapy evaluation for 07/24/23 ; 08/23/23 ;10/22/23; 11/04/23 documented in this encounter Plan of Treatment Not on file documented as of this encounter Visit Diagnoses Not on filedocumented in this encounter Care Teams Translator/Interpreter Relationship Specialty Start Date End Date Buster Hyde [address] [place] [address] PCP - General Internal Medicine 03/20/22 Claire Linn MD [address] [place] [address] Specialist Cardiology 05/01/22 Renetta Morales DNP [address] [place] [address] Specialist Cardiology 05/01/22 documented as of this encounter
--- OUTSIDE RECORDS SUMMARY | 2025-09-12 12:31 | XMS_ITS | Encounter Summary ---
Author Organization [facility] Prior to 08/07/2024 Address [address] [place] [address] Care Team Providers Care Statistical Reporting Analyst Name Role Phone Buster Hyde Primary Care Provider [phone] Claire Linn MD Unavailable [phone] Renetta Morales DNP Unavailable [phone] Reason for Visit * Reason Onset Date Comments Faxed Order 11/11/2023 [facility] O T Recertification 07/24/23-10/22/22, 08/23/23-09/21/23, 10/21/23-11/20/23, 09/22/23-10/22/23 Encounter Details Date Type Department Care Team Description 11/11/2023 Telephone Adult Medicine [address] [address] Buster Hyde [address] [place] [address] Faxed Order ([facility] OT Recertification 07/24/23-10/22/22, 08/23/23-09/21/23, 10/21/23-11/20/23, 09/22/23-10/22/23) Social History Tobacco Use Types Packs/Day Years [...] encounter Miscellaneous Notes * Telephone Encounter - Maryellen Gin Obando - 11/11/2023 1:30 PM EST [facility] Recertification 07/24/23-10/22/22, 08/23/23-09/21/23, 10/21/23- 11/20/23, 09/22/23-10/22/23 documented in this encounter Plan of Treatment Not on file documented as of this encounter Visit Diagnoses Not on filedocumented in this encounter Care Teams Statistical Reporting Analyst Relationship Specialty Start Date End Date Buster Hyde [address] [place] [address] PCP - General Internal Medicine 03/20/22 Claire Linn MD [address] [place] [address] Specialist Cardiology 05/01/22 Renetta Morales DNP [address] [place] [address] Specialist Cardiology 05/01/22 documented as of this encounter
--- OUTSIDE RECORDS SUMMARY | 2025-09-12 12:31 | XMS_ITS | Encounter Summary ---
Author Organization [facility] Prior to 08/07/2024 Address [address] [place] [address] Care Team Providers Care Supervisor Fur Floor Worker Name Role Phone Buster Hyde Primary Care Provider [phone] Claire Linn MD Unavailable [phone] Renetta Morales [facility] Unavailable [phone] Encounter Details Date Type Department Care Team Description 07/09/2024 Hospital Medical Records [address] [place] [address] Social History Tobacco Use Types Packs/Day Years [...] on filedocumented in this encounter Care Teams Supervisor Fur Floor Worker Relationship Specialty Start Date End Date Buster Hyde [address] [place] [address] [phone] PCP - General Internal Medicine 03/20/22 Claire Linn MD [address] [place] [address] Specialist Cardiology 05/01/22 Renetta Morales, RICHARD [address] [place] [address] Specialist Cardiology 05/01/22 documented as of this encounter
--- OUTSIDE RECORDS SUMMARY | 2025-09-12 12:31 | XMS_ITS | Encounter Summary ---
Author Organization [facility] Prior to 08/07/2024 Address [address] [place] [address] Care Team Providers Care Judicial Reporter Name Role Phone Buster Hyde Primary Care Provider [phone] Claire Linn MD Unavailable [phone] Renetta Morales DNP Unavailable [phone] Reason for Visit * Reason Onset Date Comments Faxed Order 2024 Encounter Details Date Type Department Care Team Description 2024 Telephone Adult Medicine [address] [address] Buster Hyde [address] [place] [address] [phone] Faxed Order Social History Tobacco Use Types [...] * Telephone Encounter - Cayla Dang - 2024 10:48 AM EDT Faxed orders received from [facility] [id number], [id number], [id number], [id number] placed in providers box. documented in this encounter Plan of Treatment Not on file documented as of this encounter Visit Diagnoses Not on filedocumented in this encounter Care Teams Judicial Reporter Relationship Specialty Start Date End Date Buster Hyde [address] [place] [address] PCP - General Internal Medicine 03/20/22 Claire Linn MD [address] [place] [address] Specialist Cardiology 05/01/22 Renetta Morales DNP [address] [place] [address] Specialist Cardiology 05/01/22 documented as of this encounter
--- OUTSIDE RECORDS SUMMARY | 2025-09-12 12:31 | XMS_ITS | Encounter Summary ---
Author Organization [facility] Prior to 08/07/2024 Address [address] [place] [address] Care Team Providers Care Traffic Control Signaler Name Role Phone Buster Hyde Primary Care Provider [phone] Claire Linn MD Unavailable [phone] Renetta Morales DNP Unavailable [phone] Encounter Details Date Type Department Care Team Description 03/30/2024 Hospital Medical Records [address] [place] [address] Abstract, Provider Social History Tobacco Use Types [...] on filedocumented in this encounter Care Teams Traffic Control Signaler Relationship Specialty Start Date End Date Buster Hyde [address] [place] [address] PCP - General Internal Medicine 03/20/22 Claire Linn MD [address] [place] [address] Specialist Cardiology 05/01/22 Renetta Morales, RICHARD [address] [place] [address] Specialist Cardiology 05/01/22 documented as of this encounter
--- OUTSIDE RECORDS SUMMARY | 2025-09-12 12:31 | XMS_ITS | Encounter Summary ---
Author Organization [facility] Prior to 08/07/2024 Address [address] [place] [address] Care Team Providers Care Sugarcane Research Technician Name Role Phone Buster Hyde Primary Care Provider [phone] Claire Linn MD Unavailable [phone] Renetta Morales DNP Unavailable [phone] Reason for Visit * Reason Onset Date Comments Faxed Order 09/25/2023 Encounter Details Date Type Department Care Team Description 09/25/2023 Telephone Adult Medicine [address] [address] Buster Hyde [address] [place] [address] [phone] Faxed Order Social History Tobacco Use Types [...] encounter Miscellaneous Notes * Telephone Encounter - Jacob Witt - 09/25/2023 11:05 AM EST Anita from [facility] faxing orders for pt and ot services to be signed and sent back to [phone]. documented in this encounter Plan of Treatment Not on file documented as of this encounter Visit Diagnoses Not on filedocumented in this encounter Care Teams Sugarcane Research Technician Relationship Specialty Start Date End Date Buster Hyde [address] [place] [address] PCP - General Internal Medicine 03/20/22 Claire Linn MD [address] [place] [address] Specialist Cardiology 05/01/22 Renetta Morales DNP [address] [place] [address] Specialist Cardiology 05/01/22 documented as of this encounter
--- OUTSIDE RECORDS SUMMARY | 2025-09-12 12:31 | XMS_ITS | Encounter Summary ---
Author Organization [facility] Prior to 08/07/2024 Address [address] [place] [address] Care Team Providers Care Six Sigma Black Belt Engineer Name Role Phone Buster Hyde Primary Care Provider Claire Linn MD Unavailable [phone] Renetta Morales DNP Unavailable [phone] Reason for Visit * Reason Onset Date Comments Faxed Order 07/07/2024 Faxed order rece ived from [facility] [id number] placed in providers box, Encounter Details Date Type Department Care Team Description 07/07/2024 Telephone Adult Medicine [address] [address] Buster Hyde [address] [place] [address] [phone] Faxed Order (Faxed order received from [facility] [id number] placed in providers box,) Social History Tobacco Use Types Packs/Day Years [...] on filedocumented in this encounter Care Teams Six Sigma Black Belt Engineer Relationship Specialty Start Date End Date Bsuter Hyde [address] [place] [address] PCP - General Internal Medicine 03/20/22 Claire Linn MD [address] [place] [address] Specialist Cardiology 05/01/22 Renetta Morales DNP [address] [place] [address] Specialist Cardiology 05/01/22 documented as of this encounter
--- OUTSIDE RECORDS SUMMARY | 2025-09-12 12:31 | XMS_ITS | Encounter Summary ---
Author Organization [facility] Prior to 08/07/2024 Address [address] [place] [address] Care Team Providers Care Telephone Diaphragm Assembler Name Role Phone Buster Hyde Primary Care Provider [phone] Claire Linn MD Unavailable [phone] Renetta Morales DNP Unavailable [phone] Encounter Details Date Type Department Care Team Description 01/31/2024 Orders Only Medical Records [address] [place] [address] Lanny Babb Social History Tobacco Use Types Packs/Day Years [...] on file documented as of this encounter Procedures Procedure Name Priority Date/Time Associated Diagnosis Comments OUTSIDE PLAIN FILM Routine 01/24/2024 documented in this encounter Results * OUTSIDE PLAIN FILM (01/24/2024) Lanny Babb RADIOLOGY documented in this encounter Visit Diagnoses Not on filedocumented in this encounter Care Teams Telephone Diaphragm Assembler Relationship Specialty Start Date End Date Buster Hyde [address] [place] [address] PCP - General Internal Medicine 03/20/22 Claire Linn MD [address] [place] [address] Specialist Cardiology 05/01/22 Renetta Morales DNP [address] [place] [address] Specialist Cardiology 05/01/22 documented as of this encounter
--- OUTSIDE RECORDS SUMMARY | 2025-09-12 12:31 | XMS_ITS | Encounter Summary ---
Author Organization [facility] Prior to 08/07/2024 Address [address] [place] [address] Care Team Providers Care Project Technician Name Role Phone Tricia Kaur MD Primary Care Provider Unava ilable Ana Moreno MD Primary Care Provider Unavailab Lucien Wilkins MD Primary Care Provider [phone] Buster Hyde Primary Care Provider [phone] Claire Linn MD Unavailable [phone] Renetta Morales DNP Unavailable [phone] Encounter Details Date Type Department Care Team Description 11/08/2020 Telephone Adult Medicine [facility] [address] [place] [address] Tricia Kaur MD Social History Tobacco Use Types Packs/Day Years Used Date Smoking Tobacco: Never Smokeless Tobacco: Never Alcohol Use Standard Drinks/Week Comments Yes 0 (1 standard drink = 0.6 oz pur e alcohol) socially Sex Assigned at Date Recorded Not on file Job Start Date Occupation Industry Not on file Not on file Not on file COVID-19 Exposure Response Date Recorded In the last month, have you been in contact with someone who was confirmed or suspected to have Coronavirus / COVID-19? Unable to assess 11/07/2020 11:53 AM EST documented as of this encounter Plan of Treatment Not on file documented as of this encounter Visit Diagnoses Not on filedocumented in this encounter Care Teams Project Technician Relationship Specialty Start Date End Date Tricia Kaur MD PCP - General 04/16/11 04/18/21 Ana Moreno MD PCP - General Internal Medicine 04/19/21 09/14/21 Lucien Le MD [address] [place] [address] PCP - General Internal Medicine 09/15/21 03/19/22 Buster Hyde [address] [place] [address] PCP - General Internal Medicine 03/20/22 Claire Linn MD [address] [place] [address] Specialist Cardiology 05/01/22 Renetta Morales DNP [address] [place] [address] Specialist Cardiology 05/01/22 documented as of this encounter
--- OUTSIDE RECORDS SUMMARY | 2025-09-12 12:31 | XMS_ITS | Encounter Summary ---
Author Organization [facility] Prior to 08/07/2024 Address [address] [place] [address] Care Team Providers Care Reel Assembler Name Role Phone Buster Hyde Primary Care Provider [phone] Claire Linn MD Unavailable [phone] Renetta Morales DNP Unavailable [phone] Encounter Details Date Type Department Care Team Description 04/23/2024 Orders Only Medical Records [address] [place] [address] Abstract, Provider Social History Tobacco Use Types [...] Name Priority Date/Time Associated Diagnosis Comments OUTSIDE LAB Routine 04/04/2024 documented in this encounter Results * OUTSIDE LAB (04/04/2024) Provider Abstract LAB documented in this encounter Visit Diagnoses Not on filedocumented in this encounter Care Teams Reel Assembler Relationship Specialty Start Date End Date Buster Hyde [address] [place] [address] [phone] PCP - General Internal Medicine 03/20/22 Claire Linn MD [address] [place], [place] [phone] Specialist Cardiology 05/01/22 Renetta Morales DNP [address] [place] [address] Specialist Cardiology 05/01/22 documented as of this encounter
--- OUTSIDE RECORDS SUMMARY | 2025-09-12 12:31 | XMS_ITS | Encounter Summary ---
Author Organization [facility] Prior to 08/07/2024 Address [address] [place] [address] Care Team Providers Care Rod Finisher Name Role Phone Buster Hyde Primary Care Provider [phone] Claire Linn MD Unavailable [phone] Renetta Morales DNP Unavailable [phone] Encounter Details Date Type Department Care Team Description 02/07/2024 Lab Tester Report Medical Records [address] [place] [address] Lanny Babb Social History Tobacco Use Types [...] on filedocumented in this encounter Care Teams Rod Finisher Relationship Specialty Start Date End Date Buster Hyde [address] [place] [address] PCP - General Internal Medicine 03/20/22 Claire Linn MD [address] [place] [address] Specialist Cardiology 05/01/22 Renetta Morales, RICHARD [address] [place] [address] Specialist Cardiology 05/01/22 documented as of this encounter
--- OUTSIDE RECORDS SUMMARY | 2025-09-12 12:31 | XMS_ITS | Encounter Summary ---
Author Organization [facility] Prior to 08/07/2024 Address [address] [place] [address] Care Team Providers Care Set Builder Name Role Phone Lucien Le MD Primary Care Provider [phone] Buster Hyde Primary Care Provider [phone] Claire Linn MD Unavailable [phone] Renetta Morales DNP Unavailable [phone] Reason for Visit * Reason Onset Date Comments [facility] Call 11/08/2021 Encounter Details Date Type Department Care Team Description 11/08/2021 Telephone Adult [address] [address] Lucien Le MD [address] [place] [address] [facility] Call Social History Tobacco Use Types Packs/Day Years [...] Miscellaneous Notes * Telephone Encounter - Eddy AllanP.NChristopher - 11/09/2021 2:34 PM EST See FYI from [facility] * Telephone Encounter - Bernardo Lowry - 11/08/2021 11:56 AM EST [facility] CALL Which [facility] office is calling? Liset King [facility] Full name of caller: amy The caller management advisor Is the caller at the patients home?: NO Reason for call: OT evaluation pending patient is aware Does caller need an urgent call back? NO Was CONTACT Telephone # obtained above?: YES Fax #: documented in this encounter Plan of Treatment Not on file documented as of this encounter Visit Diagnoses Not on filedocumented in this encounter Care Teams Set Builder Relationship Specialty Start Date End Date Lucien Le MD [address] [place] [address] PCP - General Internal Medicine 09/15/21 03/19/22 Buster Hyde [address] [place] [address] PCP - General Internal Medicine 03/20/22 Claire Linn MD [address] [place] [address] Specialist Cardiology 05/01/22 Renetta Morales DNP [address] [place] [address] Specialist Cardiology 05/01/22 documented as of this encounter
--- OUTSIDE RECORDS SUMMARY | 2025-09-12 12:31 | XMS_ITS | Encounter Summary ---
Author Organization [facility] Prior to 08/07/2024 Address [address] [place] [address] Care Team Providers Care Supervisor Mold Construction Name Role Phone Tricia Kaur MD Primary Care Provider Unava ilable Ana Moreno MD Primary Care Provider Unavailab Lucien Wilkins MD Primary Care Provider [phone] Buster Hyde Primary Care Provider [phone] Claire Linn MD Unavailable [phone] Renetta Morales DNP Unavailable [phone] Encounter Details Date Type Department Care Team Description 07/08/2020 Business Doc Medical Records [address] [place] [address] Abstract, Provider Social History Tobacco Use Types [...] or suspected to have Coronavirus / COVID-19? No / Unsure 07/11/2020 11:20 AM EDT documented as of this encounter Plan of Treatment Not on file documented as of this encounter Visit Diagnoses Not on filedocumented in this encounter Care Teams Supervisor Mold Construction Relationship Specialty Start Date End Date Tricia Kaur MD PCP - General 04/16/11 04/18/21 Ana Moreno MD PCP - General Internal Medicine 04/19/21 09/14/21 Lucien Le MD [address] [place] [address] PCP - General Internal Medicine 09/15/21 03/19/22 Buster Hyde [address] [place] [address] PCP - General Internal Medicine 03/20/22 Claire Linn MD [address] [place] [address] Specialist Cardiology 05/01/22 Renetta Morales DNP [address] [place] [address] Specialist Cardiology 05/01/22 documented as of this encounter
--- OUTSIDE RECORDS SUMMARY | 2025-09-12 12:31 | XMS_ITS | Encounter Summary ---
Author Organization [facility] Prior to 08/07/2024 Address [address] [place] [address] Care Team Providers Care Top Frame Maker Name Role Phone Buster Hyde Primary Care Provider [phone] Claire Linn MD Unavailable [phone] Renetta Morales DNP Unavailable [phone] Encounter Details Date Type Department Care Team Description 05/24/2024 Home Health Certification Medical Records [address] [place] [address] Reese Alejo [address] [address] Social History Tobacco Use Types Packs/Day Years [...] on filedocumented in this encounter Care Teams Top Frame Maker Relationship Specialty Start Date End Date Buster Hyde [address] [place], [place] [phone] PCP - General Internal Medicine 03/20/22 Claire Linn MD [address] [place] [address] Specialist Cardiology 05/01/22 Renetta Morales, RICHARD [address] [place] [address] Specialist Cardiology 05/01/22 documented as of this encounter
--- OUTSIDE RECORDS SUMMARY | 2025-09-12 12:31 | XMS_ITS | Encounter Summary ---
Author Organization [facility] Prior to 08/07/2024 Address [address] [place] [address] Care Team Providers Care Small Business Banking Officer Name Role Phone Buster Steele Primary Care Provider [phone] Claire Linn MD Unavailable [phone] Renetta Morales DNP Unavailable [phone] Reason for Visit * Reason Onset Date Comments Provider Call Back 04/10/2024 Encounter Details Date Type Department Care Team Description 04/10/2024 Telephone Adult Medicine [address] [address] Buster Steele [address] [place] [address] [phone] Provider Call Back Social History Tobacco Use Types Packs/Day Years [...] encounter Miscellaneous Notes * Telephone Encounter - Nuris Lawton R.N. - 2024 8:42 AM EDT C&S results placed with dr steele * Telephone Encounter - Nuris Lawton R.N. - 04/13/2024 4:26 PM EDT Pt has > 100,000 e coli and > 10,000 pseudomonas , Karissa will send culture results, pt is more confused , urine is cloudy and foul smelling Need sensitivities as pt has allergies and organism is resistant to Macrobid , sulfa , TCN and betalactam Dr steele aware and we will await results * Telephone Encounter - Maryellen Mcmillan - 04/13/2024 4:15 PM EDT Karissa is calling in [facility] to where we are at with receiving the labs with the UTI. She is becoming very confused and worse as the days go one. She needs medication. What would be the next steps? Please advise. Phone number for Karissa - [phone]. * Telephone Encounter - Helena Arambula R.N - 04/10/2024 2:54 PM EDT Called jimbo back left to return call no vr for him Pt c/o frequent urination on 03/24 ua and culture ordered never done? [facility] fax * Telephone Encounter - Morelia Mccarty L.P.N. - 04/10/2024 2:47 PM EDT Please triage * Telephone Encounter - Esther Davis - 04/10/2024 2:06 PM EDT freddie MUÑOZ is calling to check status on fax from [email or web address] and wants to know whenDr Buster Steele is going to follow up and be able to give patient medication for UTI documented in this encounter Plan of Treatment Not on file documented as of this encounter Visit Diagnoses Not on filedocumented in this encounter Care Teams Small Business Banking Officer Relationship Specialty Start Date End Date Buster Steele [address] [place] [address] PCP - General Internal Medicine 03/20/22 Claire Linn MD [address] [place] [address] Specialist Cardiology 05/01/22 Renetta Morales DNP [address] [place] [address] Specialist Cardiology 05/01/22 documented as of this encounter
--- OUTSIDE RECORDS SUMMARY | 2025-09-12 12:31 | XMS_ITS | Encounter Summary ---
Author Organization [facility] Prior to 08/07/2024 Address [address] [place] [address] Care Team Providers Care Certified Pesticide Applicator Name Role Phone Buster Hyde Primary Care Provider [phone] Claire Linn MD Unavailable [phone] Renetta Morales DNP Unavailable [phone] Encounter Details Date Type Department Care Team Description 01/17/2024 Orders Only Medical Records [address] [place] [id number] [place] [address] Inc Social History Tobacco Use Types Packs/Day Years [...] Name Priority Date/Time Associated Diagnosis Comments OUTSIDE VASCULAR STUDY Routine 01/11/2024 OUTSIDE PLAIN FILM Routine 01/11/2024 documented in this encounter Results * OUTSIDE PLAIN FILM (01/11/2024) [facility] RADIOLOGY * OUTSIDE [facility]ASCULAR STUD[facility]01[facility]11/2024[facility] documented in this encounter Visit Diagnoses Not on filedocumented in this encounter Care Teams Certified Pesticide Applicator Relationship Specialty Start Date End Date Buster Hyde [address] [place] [address] PCP - General Internal Medicine 03/20/22 Claire Linn MD [address] [place] [address] Specialist Cardiology 05/01/22 Renetta Morales DNP [address] [place] [address] Specialist Cardiology 05/01/22 documented as of this encounter
--- OUTSIDE RECORDS SUMMARY | 2025-09-12 12:31 | XMS_ITS | Encounter Summary ---
Author Organization [facility] Address [address] [place] [address] Phone Care Team Providers Care Label Cutter Name Role Phone Tricia Kaur MD Primary Care Provide r Lucien Le MD Primary Care Provider + Reason for Referral * Physical Therapy (Routine) - Closed Specialty Diagnoses / Procedures Referred By Nam goodwin Referred To Contact Physical Therapy Diagnoses Encounter for rehabilitation System, Provider Not In, [facility] [phone] [place] [address] Phone: tel: Referral ID Status Reason Start Date Expiration Date Visits Re quested Visits Authorized [id number] Closed 04/15/2018 10/06/2018 99 99 Encounter Details Date Type Department Care Team (Latest Contact Info) Description 04/15/2018 Transcribe Orders [facility] Rehabilitation Services [address] [place] [address] Renee Chi PA [address] [address] Encounter for rehabilitation (Primary Dx) Social History Tobacco Use Types Packs/Day Years Used Date Smoking Tobacco: Never Assessed Comments Unknown Sex and Gender Information Value Date Recorded Sex Assigned at Not on file Legal Sex Female 10:12 PM EDT Gender Identity Not on file Sexual Orientation Not on file documented as of this encounter Plan of Treatment Scheduled Referrals Name Type Priority Associated Diagnoses Orde r Schedule Ambulatory referral to [facility] Physical Therapy Outpatient Referral Routine Encounter for rehabilitation Ordered: 04/15/2018 documented as of this encounter Visit Diagnoses Diagnosis Encounter for rehabilitation- Primary documented in this encounter Care Teams Label Cutter Relationship Specialty Start Date End Date Tricia Kaur MD [address] [place] [address] PCP - General Internal Medicine 12/18/17 10/31/21 Lucien Le MD [address] [place] [phone] PCP - General Internal Medicine 11/01/21 documented as of this encounter Additional Source Comments The information contained in this document represents components of the legal health record. It is not the complete legal health record.[facility]
--- OUTSIDE RECORDS SUMMARY | 2025-09-12 12:31 | XMS_ITS | Encounter Summary ---
Author Organization [facility] Prior to 08/07/2024 Address [address] [place] [address] Care Team Providers Care Vineyardist Name Role Phone Tricia Kaur MD Primary Care Provider Unava ilYesika Campos MD Primary Care Provider Unavailable Cooper Joaquin Primary Care Provider [phone] Ana Moreno MD Primary Care Provider Unavailab Lucien Wilkins MD Primary Care Provider [phone] Buster Hyde Primary Care Provider [phone] Claire Linn MD Unavailable [phone] Renetta Morales DNP Unavailable [phone] Encounter Details Date Type Department Care Team Description 03/01/2005 Orders Only Medical [address] [place], [place] [phone] Cooper Joaquin [address] [place] [address] [phone] LONG-TERM (CURRENT) USE OF OTHER MEDICATIONS (Primary Dx) Social History Tobacco Use Types Packs/Day Years Used Date Smoking Tobacco: Never Assessed Sex Assigned at Date Recorded Not on file Job Start Date Occupation Industry Not on file Not on file Not on file documented as of this encounter Plan of Treatment Not on file documented as of this encounter Visit Diagnoses Diagnosis Encounter for long-term (current) use of other medications- Primary documented in this encounter Care Teams Vineyardist Relationship Specialty Start Date End Date Tricia Kaur MD PCP - General 04/16/11 04/18/21 Nenita-Yesika Orta MD PCP - General 03/07/0604/15 Cooper Joaquin [address] [place] [address] PCP - General 09/01/04 03/06/06 Ana Moreno MD [address] [place] [address] PCP - General Internal Medicine 04/19/21 09/14/21 Lucien Le MD [address] [place] [address] PCP - General Internal Medicine 09/15/21 03/19/22 Buster Hyde [address] [place] [address] PCP - General Internal Medicine 03/20/22 Claire Linn MD [address] [place] [address] Specialist Cardiology 05/01/22 Renetta Morales DNP [address] [place] [address] Specialist Cardiology 05/01/22 documented as of this encounter
--- OUTSIDE RECORDS SUMMARY | 2025-09-12 12:31 | XMS_ITS | Encounter Summary ---
Author Organization [facility] Prior to 08/07/2024 Address [address] [place] [address] Care Team Providers Care Product Test Engineer Name Role Phone Buster Hyde Primary Care Provider [phone] Claire Linn MD Unavailable [phone] Renetta Morales DNP Unavailable [phone] Encounter Details Date Type Department Care Team Description 01/21/2024 Hospital Medical Records [address] [place] [address] Harlan Ford MD Social History Tobacco Use Types Packs/Day [...] on filedocumented in this encounter Care Teams Product Test Engineer Relationship Specialty Start Date End Date Buster Hyde [address] [place] [address] [phone] PCP - General Internal Medicine 03/20/22 Claire Linn MD [address] [place] [address] Specialist Cardiology 05/01/22 Renetta Morales, RICHARD [address] [place] [address] Specialist Cardiology 05/01/22 documented as of this encounter
--- OUTSIDE RECORDS SUMMARY | 2025-09-12 12:31 | XMS_ITS | Encounter Summary ---
Author Organization [facility] Prior to 08/07/2024 Address [address] [place] [address] Care Team Providers Care Insulation Professional Name Role Phone Tricia Kaur MD Primary Care Provider Unava ilable Ana Moreno MD Primary Care Provider Unavailab Lucien Wilkins MD Primary Care Provider [phone] Buster Hyde Primary Care Provider [phone] Claire Linn MD Unavailable Renetta Morales DNP Unavailable [phone] Encounter Details Date Type Department Care Team Description 12/19/2020 Home Health Certification Medical Records [address] [place] [address] Reese Alejo [address] [place] [address] Social History Tobacco Use Types Packs/Day Years [...] on filedocumented in this encounter Care Teams Insulation Professional Relationship Specialty Start Date End Date Tricia Kaur MD PCP - General 04/16/11 04/18/21 Ana Moreno MD PCP - General Internal Medicine 04/19/21 09/14/21 Lucien Le MD [address] [place] [address] PCP - General Internal Medicine 09/15/21 03/19/22 Buster Hyde [address] [place] [address] PCP - General Internal Medicine 03/20/22 Claire Linn MD [address] [place] [address] Specialist Cardiology 05/01/22 Renetta Morales DNP [address] [place] [address] Specialist Cardiology 05/01/22 documented as of this encounter
--- OUTSIDE RECORDS SUMMARY | 2025-09-12 12:31 | XMS_ITS | Encounter Summary ---
Author Organization [facility] Prior to 08/07/2024 Address [address] [place] [address] Care Team Providers Care Trousseau Consultant Name Role Phone Buster Hyde Primary Care Provider Claire Linn MD Unavailable [phone] Renetta Morales DNP Unavailable [phone] Reason for Visit * Reason Onset Date Comments Faxed Order 07/10/2024 Faxed order rece ived from [employer] [id number] placed in providers box. Encounter Details Date Type Department Care Team Description 07/10/2024 Telephone Adult Medicine [address] [address] Buster Hyde [address] [place] [address] [phone] Faxed Order (Faxed order received from [employer] [id number] placed in providers box.) Social History Tobacco Use Types Packs/Day Years [...] on filedocumented in this encounter Care Teams Trousseau Consultant Relationship Specialty Start Date End Date Buster Hyde [address] [place] [address] PCP - General Internal Medicine 03/20/22 Claire Linn MD [address] [place] [address] Specialist Cardiology 05/01/22 Renetta Morales DNP [address] [place] [address] Specialist Cardiology 05/01/22 documented as of this encounter
--- OUTSIDE RECORDS SUMMARY | 2025-09-12 12:31 | XMS_ITS | Encounter Summary ---
Author Organization [facility] Prior to 08/07/2024 Address [address] [place] [address] Care Team Providers Care Quarry Manager Name Role Phone Buster Hyde Primary Care Provider [phone] Claire Linn MD Unavailable [phone] Renetta Morales DNP Unavailable [phone] Reason for Visit * Reason Onset Date Comments VNA Call 03/25/2024 Encounter Details Date Type Department Care Team Description 03/25/2024 Telephone Adult Medicine [address] [address] Buster Hyde [address] [place] [address] [phone] VNA Call Social History Tobacco Use Types [...] Miscellaneous Notes * Telephone Encounter - Eddy AllanPChristopherNChristopher - 03/26/2024 2:29 PM EDT Spoke with Leti from [facility] son agree to another nurse visit they will stay in with PT and OT * Telephone Encounter - Eddy Chen L.P.N. - 03/25/2024 12:36 PM EDT Leti from [facility] called nurse went out to see the patient today When the nurse was leaving the son said he doesn't want the nurses They will keep the case with just OT and PT if the son allows a least one more nurse visit Other g[place] they will have to discharge Called patient left a message for patient to call me [place] [phone] documented in this encounter Plan of Treatment Not on file documented as of this encounter Visit Diagnoses Not on filedocumented in this encounter Care Teams Quarry Manager Relationship Specialty Start Date End Date Buster Hyde [address] [place] [address] PCP - General Internal Medicine 03/20/22 Claire Linn MD [address] [place] [address] Specialist Cardiology 05/01/22 Renetta Morales DNP [address] [place] [address] Specialist Cardiology 05/01/22 documented as of this encounter
--- OUTSIDE RECORDS SUMMARY | 2025-09-12 12:31 | XMS_ITS | Encounter Summary ---
Author Organization [facility] Prior to 08/07/2024 Address [address] [place] [address] Care Team Providers Care Patent Attorney Name Role Phone Buster Hyde Primary Care Provider [phone] Claire Linn MD Unavailable [phone] Renetta Morales DNP Unavailable [phone] Encounter Details Date Type Department Care Team Description 12/03/2023 Floor Sanding Machine Operator Report Medical Records [address] [place] [address] Buster Hyde [address] [place] [address] [phone] Social History Tobacco Use Types Packs/Day Years [...] on filedocumented in this encounter Care Teams Patent Attorney Relationship Specialty Start Date End Date Buster Hdye [address] [place] [address] [phone] PCP - General Internal Medicine 03/20/22 Claire Linn MD [address] [place] [address] Specialist Cardiology 05/01/22 Renetta Morales DNP [address] [place] [address] Specialist Cardiology 05/01/22 documented as of this encounter
--- OUTSIDE RECORDS SUMMARY | 2025-09-12 12:31 | XMS_ITS | Encounter Summary ---
Author Organization [facility] Prior to 08/07/2024 Address [address] [place] [address] Care Team Providers Care Cobbler Apprentice Name Role Phone Butser Hyde Primary Care Provider [phone] Claire Linn MD Unavailable [phone] Renetta Morales DNP Unavailable [phone] Reason for Visit * Reason Onset Date Comments Faxed Order 06/12/2023 [facility] Encounter Details Date Type Department Care Team Description 06/12/2023 Telephone Adult Medicine [address] [phone] Buster Hyde [address] [place] [address] [phone] Faxed Order ([facility]) Social History Tobacco Use Types Packs/Day Years Used Date Smoking Tobacco: Never Smokeless Tobacco: Never Alcohol Use Standard Drinks/Week Comments Yes 0 (1 standard drink = 0.6 oz pur e alcohol) socially Sex Assigned at Date Recorded Not on file Job Start Date Occupation Industry Not on file Not on file Not on file COVID-19 Exposure Response Date Recorded In the last 10 days, have yo u been in contact with someone who was confirmed or suspected to have Coronavirus/COVID-19? No / Unsure 05/30/2023 3:14 PM EDT documented as of this encounter Miscellaneous Notes * Telephone Encounter - Gin Vergara Aura - 06/12/2023 8:21 PM EDT Fax signed order back to [facility] at [id number] documented in this encounter Plan of Treatment Not on file documented as of this encounter Visit Diagnoses Not on filedocumented in this encounter Care Teams Cobbler Apprentice Relationship Specialty Start Date End Date Buster Hyde [address] [place] [address] PCP - General Internal Medicine 03/20/22 Claire Linn MD [address] [place] [address] Specialist Cardiology 05/01/22 Renetta Morales DNP [address] [place] [address] Specialist Cardiology 05/01/22 documented as of this encounter
--- OUTSIDE RECORDS SUMMARY | 2025-09-12 12:31 | XMS_ITS | Encounter Summary ---
Author Organization [facility] Address [address] [place] [address] Phone Care Team Providers Care Pillowcase Cutter Name Role Phone Tricia Kaur MD Primary Care Provide r Lucien Le MD Primary Care Provider + Reason for Referral * Physical Therapy (Routine) - Closed Specialty Diagnoses / Procedures Referred By Nam goodwin Referred To Contact Physical Therapy Diagnoses Encounter for rehabilitation Sanjuanita Huggins MD Phone: tel: fax: mailto:[email or web address] [address] [place] [address] Phone: tel: Referral ID Status Reason Start Date Expiration Date Visits Re quested Visits Authorized [id number] Closed 12/18/2017 12/18/2018 99 99 Encounter Details Date Type Department Care Team (Latest Contact Info) Description 12/18/2017 Transcribe Orders [facility] Rehabilitation Services [address] [place] [address] Homar Gann MD [address] [place] [address] Encounter for rehabilitation (Primary Dx) Social History [...] Diagnoses Orde r Schedule Ambulatory referral to [facility] Physical Therapy Outpatient Referral Routine Encounter for rehabilitation Ordered: 12/18/2017 documented as of this encounter Visit Diagnoses Diagnosis Encounter for rehabilitation- Primary documented in this encounter Care Teams Pillowcase Cutter Relationship Specialty Start Date End Date Tricia Kaur MD [address] [place] [address] PCP - General Internal Medicine 12/18/17 10/31/21 Lucien Le MD [address] [place] [phone] PCP - General Internal Medicine 11/01/21 documented as of this encounter Additional Source Comments The information contained in this document represents components of the legal health record. It is not the complete legal health record.[facility]
[2025-09-12 12:32] LABS: Hematocrit 50.1 % (37.0-47.0); Hemoglobin 16.8 g/dl (12.0-16.0); Imm Gran Abs Auto 0.09 X10*3/uL (0.00-0.03); Imm Gran Pct Auto 1.0 % (0.0-0.4); Lymphocytes Absolute Auto 0.6 X10*3/uL (1.2-4.9); Mean Corpuscular HGB Conc 33.5 g/dl (31.0-35.0); Mean Corpuscular Hemoglobin 31.3 pg (27.0-33.0); Mean Corpuscular Volume 93.5 fL (80.0-98.0); NRBC Abs Auto 0.000 X10*3/uL (0.0-0.012); NRBC Pct Auto 0.0 /100WBC (0.0-0.2); Platelet Count 230 X10*3/uL (160-400); Red Blood Count 5.36 X10*6/uL (4.20-5.50); SCAN SMEAR FLAG 1; White Blood Count 8.7 X10*3/uL (4.8-10.8)
--- OUTSIDE RECORDS SUMMARY | 2025-09-12 12:32 | XMS_ITS | Encounter Summary ---
Author Organization [facility] Prior to 08/07/2024 Address [address] [place] [address] Care Team Providers Care Security Support Analyst Name Role Phone Buster Hyde Primary Care Provider Claire Linn MD Unavailable [phone] Renetta Morales DNP Unavailable [phone] Reason for Referral * INTERNAL (Routine) - Unable to reach/declined Specialty Diagnoses / Procedures Referred By Nam goodwin Referred To Contact Infectious Disease Procedures REFERRAL TO INFECTIOUS DISEASE Buster Hyde [address] [place] [address] Infectious Disease/175 [address] [facility], [address] [place] [address] Referral ID Status Reason Start Date Expiration Date V isits Requested Visits Authorized [id number] Unable to reach/declin ed 08/03/2024 1 1 Encounter Details Date Type Department Care Team Description 08/03/2024 Telephone Adult Medicine [address] [address] Buster Hyde [address] [place] [address] Social History Tobacco Use Types Packs/Day Years [...] on filedocumented in this encounter Care Teams Security Support Analyst Relationship Specialty Start Date End Date Buster Hyde [address] [place] [address] PCP - General Internal Medicine 03/20/22 Claire Linn MD [address] [place] [address] Specialist Cardiology 05/01/22 Renetta Morales DNP [address] [place] [address] Specialist Cardiology 05/01/22 documented as of this encounter
--- OUTSIDE RECORDS SUMMARY | 2025-09-12 12:32 | XMS_ITS | Encounter Summary ---
Author Organization [facility] Prior to 08/07/2024 Address [address] [place] [address] Care Team Providers Care Partner Marketing Manager Name Role Phone Tricia Kaur MD Primary Care Provider Unava ilable Ana Moreno MD Primary Care Provider Unavailab Lucien Wilkins MD Primary Care Provider [phone] Buster Hyde Primary Care Provider [phone] Claire Linn MD Unavailable [phone] Renetta Morales DNP Unavailable [phone] Encounter Details Date Type Department Care Team Description 07/26/2017 Business Doc Medical Records [address] [place] [address] Abstract, Provider Social History Tobacco Use Types [...] on filedocumented in this encounter Care Teams Partner Marketing Manager Relationship Specialty Start Date End Date Tricia Kaur MD PCP - General 04/16/11 04/18/21 Ana Moreno MD PCP - General Internal Medicine 04/19/21 09/14/21 Lucien Le MD [address] [place] [address] PCP - General Internal Medicine 09/15/21 03/19/22 Buster Hyde [address] [place] [address] PCP - General Internal Medicine 03/20/22 Claire Linn MD [address] [place] [address] Specialist Cardiology 05/01/22 Renetta Morales DNP [address] [place] [address] Specialist Cardiology 05/01/22 documented as of this encounter
--- OUTSIDE RECORDS SUMMARY | 2025-09-12 12:32 | XMS_ITS | Encounter Summary ---
Author Organization [facility] Prior to 08/07/2024 Address [address] [place] [address] Care Team Providers Care Maintenance Engineer Oil Field Name Role Phone Tricia Kaur MD Primary Care Provider Unava ilable Ana Moreno MD Primary Care Provider Unavailab Lucien Wilkins MD Primary Care Provider [phone] Buster Hyde Primary Care Provider [phone] Claire Linn MD Unavailable [phone] Renetta Morales DNP Unavailable [phone] Encounter Details Date Type Department Care Team Description 02/07/2017 Loadmaster Report Medical Records [address] [place] [address] Claudio Crane Social History Tobacco Use Types Packs/Day Years [...] on filedocumented in this encounter Care Teams Maintenance Engineer Oil Field Relationship Specialty Start Date End Date Tricia Kaur MD PCP - General 04/16/11 04/18/21 Ana Moreno MD PCP - General Internal Medicine 04/19/21 09/14/21 Lucien Le MD [address] [place] [address] PCP - General Internal Medicine 09/15/21 03/19/22 Buster Hyde [address] [place] [address] 27717 PCP - General Internal Medicine 03/20/22 Claire Linn MD [address] [place] [address] 77672 Specialist Cardiology 05/01/22 Renetta Morales DNP [address] [place] [address]182 Specialist Cardiology 05/01/22 documented as of this encounter
--- OUTSIDE RECORDS SUMMARY | 2025-09-12 12:32 | XMS_ITS | Encounter Summary ---
Author Organization [facility] Prior to 08/07/2024 Address [address] [place] [address] Care Team Providers Care Audit Senior Associate Name Role Phone Ana Moreno MD Primary Care Provider Unavailab Lucien Wilkins MD Primary Care Provider [phone] Buster Hyde Primary Care Provider [phone] Claire Linn MD Unavailable [phone] Renetta Morales DNP Unavailable [phone] Encounter Details Date Type Department Care Team Description 07/20/2021 Business Doc Medical Records [address] [place] [id number] Abstract, Provider Social History Tobacco Use Types [...] have Coronavirus / COVID-19? No / Unsure 07/17/2021 7:30 AM EDT documented as of this encounter Plan of Treatment Not on file documented as of this encounter Visit Diagnoses Not on filedocumented in this encounter Care Teams Audit Senior Associate Relationship Specialty Start Date End Date Ana Moreno MD PCP - General Internal Medicine 7/14/21 12/9/21 Lucien Le MD [address] [place] [address] 9[address]94 PCP - General Internal Medicine 09/15/21 03/19/22 Buster Hyde [address] [place] [address] 93118 PCP - General Internal Medicine 03/20/22 Claire Linn MD [address] [place] [address] 07441 Specialist Cardiology 05/01/22 Renetta Morales DNP [address] [place] [address] [phone] Specialist Cardiology 05/01/22 documented as of this encounter
--- OUTSIDE RECORDS SUMMARY | 2025-09-12 12:32 | XMS_ITS | Encounter Summary ---
Author Organization [facility] Prior to 08/07/2024 Address [address] [place] [address] Care Team Providers Care Wardsperson Name Role Phone Tricia Kaur MD Primary Care Provider Unava ilable Ana Moreno MD Primary Care Provider Unavailab Lucien Wilkins MD Primary Care Provider [phone] Buster Hyde Primary Care Provider [phone] Claire Linn MD Unavailable [phone] Renetta Morales DNP Unavailable [phone] Encounter Details Date Type Department Care Team Description 06/20/2017 Business Doc Medical Records [address] [place] [address] Abstract, Provider Social History Tobacco Use Types [...] on filedocumented in this encounter Care Teams Wardsperson Relationship Specialty Start Date End Date Tricia Kaur MD PCP - General 04/16/11 04/18/21 Ana Moreno MD PCP - General Internal Medicine 04/19/21 09/14/21 Lucien Le MD [address] [place] [address]87 PCP - General Internal Medicine 09/15/21 03/19/22 Buster Hyde [address] [place] [address] PCP - General Internal Medicine 03/20/22 Claire Linn MD [address] [place] [address] Specialist Cardiology 05/01/22 Renetta Morales DNP [address] [place] [address] Specialist Cardiology 05/01/22 documented as of this encounter
--- OUTSIDE RECORDS SUMMARY | 2025-09-12 12:32 | XMS_ITS | Encounter Summary ---
Author Organization [facility] Prior to 08/07/2024 Address [address] [place] [address] Care Team Providers Care Training Facilitator Name Role Phone Ana Moreno MD Primary Care Provider Unavailab Lucien Wilkins MD Primary Care Provider [phone] Buster Hyde Primary Care Provider [phone] Claire Linn MD Unavailable [phone] Renetta Morales DNP Unavailable [phone] Encounter Details Date Type Department Care Team Description 04/24/2021 [place] [facility] [address] [address] Ana Moreno MD Social History Tobacco Use Types Packs/Day [...] on filedocumented in this encounter Care Teams Training Facilitator Relationship Specialty Start Date End Date Ana Moreno MD PCP - General Internal Medicine 04/19/21 09/14/21 Lucien Le MD [address] [place] [address] PCP - General Internal Medicine 09/15/21 03/19/22 Buster Hyde [address] [place] [address] PCP - General Internal Medicine 03/20/22 Claire Linn MD [address] [place] [address] Specialist Cardiology 05/01/22 Renetta Morales DNP [address] [place] [address] Specialist Cardiology 05/01/22 documented as of this encounter
--- OUTSIDE RECORDS SUMMARY | 2025-09-12 12:32 | XMS_ITS | Encounter Summary ---
Author Organization [facility] Prior to 08/07/2024 Address [address] [place] [address] Care Team Providers Care Mammal Control Agent Name Role Phone Buster Steele Primary Care Provider [phone] Claire Linn MD Unavailable [phone] Renetta Morales DNP Unavailable [phone] Reason for Visit * Reason Onset Date Comments Provider Call Back 07/30/2024 Encounter Details Date Type Department Care Team Description 07/30/2024 Telephone Adult Medicine [address] [address] Buster Steele [address] [place] [address] [phone] Provider Call Back Social History Tobacco Use [...] Telephone Encounter - Nuris Lawton R.N. - 07/30/2024 12:17 PM EDT Pt was seen yesterday by dr steele , she was prescribed doxy for leg cellulitis, deedeejoie disagrees with this and does not feel it is needed, he feels the redness is due to abrasions and this is not a proper dx Deedeerosikofi is asking for Cipro for e coli positive urine infection and when he is told,that per the note , dr steele declined due to concerns with achilles tendonitis . Son states he will be finding another provider now * Telephone Encounter - Hawa Tena - 07/30/2024 9:26 AM EDT Caller requesting call back from provider: Is the caller the patient? NO If caller is not the patient, what is the callers name? Christopher Callers relationship to patient? Son If person calling is not the patient themselves, is there a verbal release in FYI or permanent comments for this person: YES Reason for call back: Jimbo is calling requesting a call back from a nurse in regard to the recent apt with PCP. Please advise. Caller offered to speak with the nurse for assistance: YES Response: Patient offered to speak with nurse for assistance and patient agreed. Message forwarded to nurse. documented in this encounter Plan of Treatment Not on file documented as of this encounter Visit Diagnoses Not on filedocumented in this encounter Care Teams Mammal Control Agent Relationship Specialty Start Date End Date Buster Steele [address] [place] [address] PCP - General Internal Medicine 03/20/22 Claire Linn MD [address] [place] [address] Specialist Cardiology 05/01/22 Renetta Morales DNP [address] [place] [address] Specialist Cardiology 05/01/22 documented as of this encounter
--- OUTSIDE RECORDS SUMMARY | 2025-09-12 12:32 | XMS_ITS | Encounter Summary ---
Author Organization [facility] Prior to 08/07/2024 Address [address] [place] [address] Care Team Providers Care Labor Gang Supervisor Name Role Phone Ana Moreno MD Primary Care Provider Unavailab Lucien Wilkins MD Primary Care Provider [phone] Buster Hyde Primary Care Provider [phone] Claire Linn MD Unavailable [phone] Renetta Morales DNP Unavailable [phone] Encounter Details Date Type Department Care Team Description 09/14/2021 Stock Puller Report Medical Records [address] [place] [address] Evan Talbot MD, MD Social History Tobacco Use Types Packs/Day [...] on filedocumented in this encounter Care Teams Labor Gang Supervisor Relationship Specialty Start Date End Date Ana Moreno MD PCP - General Internal Medicine 04/19/21 09/14/21 Lucien Le MD [address] [place] [address] PCP - General Internal Medicine 09/15/21 03/19/22 Buster Hyde [address] [place] [address] PCP - General Internal Medicine 03/20/22 Claire Linn MD [address] [place] [address] Specialist Cardiology 05/01/22 Renetta Morales DNP [address] [place] [address] Specialist Cardiology 05/01/22 documented as of this encounter
--- OUTSIDE RECORDS SUMMARY | 2025-09-12 12:32 | XMS_ITS | Encounter Summary ---
Author Organization [facility] Prior to 08/07/2024 Address [address] [place] [address] Care Team Providers Care Customer Account Coordinator Name Role Phone Tricia Kaur MD Primary Care Provider Unava ilable Ana Moreno MD Primary Care Provider Unavailab Lucien Wilkins MD Primary Care Provider [phone] Buster Hyde Primary Care Provider [phone] Claire Linn MD Unavailable [phone] Renetta Morales DNP Unavailable [phone] Encounter Details Date Type Department Care Team Description 02/15/2021 Document Control Specialist Report Medical Records [address] [place] [address] Charlie Walker Social History Tobacco Use Types Packs/Day Years [...] on filedocumented in this encounter Care Teams Customer Account Coordinator Relationship Specialty Start Date End Date Tricia Kaur MD PCP - General 04/16/11 04/18/21 Ana Moreno MD PCP - General Internal Medicine 04/19/21 09/14/21 Lucien Le MD [address] [place] [address] PCP - General Internal Medicine 09/15/21 03/19/22 Buster Hyde [address] [place] [address] PCP - General Internal Medicine 03/20/22 Claire Linn MD [address] [place] [address]179 Specialist Cardiology 05/01/22 Renetta Morales DNP [address] [place] [address] Specialist Cardiology 05/01/22 documented as of this encounter
--- OUTSIDE RECORDS SUMMARY | 2025-09-12 12:32 | XMS_ITS | Encounter Summary ---
Author Organization [facility] Prior to 08/07/2024 Address [address] [place] [address] Care Team Providers Care Ems Educator Name Role Phone Tricia Kaur MD Primary Care Provider Unava ilable Ana Moreno MD Primary Care Provider Unavailab Lucien Wilkins MD Primary Care Provider [phone] Buster Hyde Primary Care Provider [phone] Claire Linn MD Unavailable [phone] Renetta Morales DNP Unavailable [phone] Encounter Details Date Type Department Care Team Description 03/21/2017 Cyber Engineer Report Medical Records [address] [place] [address] [place] [address] [place] [address] [phone] Social History Tobacco Use Types Packs/Day Years [...] on filedocumented in this encounter Care Teams Ems Educator Relationship Specialty Start Date End Date Tricia Kaur MD PCP - General 04/16/11 04/18/21 Ana Moreno MD PCP - General Internal Medicine 04/19/21 09/14/21 Lucien Le MD [address] [place] [address] PCP - General Internal Medicine 09/15/21 03/19/22 Buster Hyde [address] [place] [address] 34527 PCP - General Internal Medicine 03/20/22 Claire Linn MD [address] [place] [address] 28194 Specialist Cardiology 05/01/22 Renetta Morales DNP [address] [place] [address] Specialist Cardiology 05/01/22 documented as of this encounter
--- OUTSIDE RECORDS SUMMARY | 2025-09-12 12:32 | XMS_ITS | Encounter Summary ---
Author Organization [facility] Prior to 08/07/2024 Address [address] [place] [address] Care Team Providers Care Casino Slot Supervisor Name Role Phone Buster Steele Primary Care Provider [phone] Claire Linn MD Unavailable [phone] Renetta Morales DNP Unavailable [phone] Reason for Visit * Reason Onset Date Comments VNA Call 07/27/2024 Encounter Details Date Type Department Care Team Description 07/27/2024 Telephone Adult Medicine [address] [address] Buster Steele [address] [place] [address] [phone] VNA Call (/) Social History Tobacco Use Types Packs/Day Years [...] Telephone Encounter - Nuris Lawton R.N. - 07/28/2024 12:22 PM EDT I left a message for the patient's son to return my call.to book tcm in offcie with dr steele Pt does have UTI postivr for e coli Will send results for review .Nurse is concerned that she is having muscle stiffness which is what is causing her muscle pain, she is very tight with high tone they are suggesting baclofen * Telephone Encounter - Nuris Lawton R.N. - 07/28/2024 10:35 AM EDT Pt has been having lower back pain and generalized muscle pain for the past few weeks , the pain has been ongoing but is worse now. There is no known injury. Pt has been using gabapentin TID but she has not had any relief , difficulty sleeping Son has noticed that when the nurse is with her or if she is at the doctors office she does not have any complaints and states she is well . But at home she is yelling , states she is in pain, wakes up states she is terrible pain . She has an aid with her at all times Son is worried about her , she is immobile , must have a alberto lift to move her , she has been to [facility] ? UTI, she was admitted at [facility] for 5 days 2 weeks ago , she has not had a follow up Son is asking for a follow up, can he do a virtual visit ? He can bring her in if needed for TYCM * Telephone Encounter - Pam Wen - 07/28/2024 10:26 AM EDT Pt son is returning phone call and would like to speak to nurse best number to call back on is [phone] or [phone] * Telephone Encounter - Nuris Lawton R.N. - 07/27/2024 2:19 PM EDT Pt has had several months of increasing back pain, she was seen by vna this am and pt/family told the therapist she has not pramod able to get comfortable and needs to discuss pain management with PCP, I left a message for the patient to return my call. * Telephone Encounter - Nuris Lawton R.N. - 07/27/2024 12:28 PM EDT I left a message for the Kendy to return my call. * Telephone Encounter - Jacob Witt - 07/27/2024 12:05 PM EDT VNA CALL Which [facility] office is calling? [facility] Full name of caller: Kendy The caller is A nurse Is the caller at the patients home?: NO Reason for call: Looking to speak to clinician in regards to treating patients ongoing/worsening pain. Also looking for urine swab results taken 07/24/24. Does caller need an urgent call back? NO Was CONTACT Telephone # obtained above?: YES Fax #: documented in this encounter Plan of Treatment Not on file documented as of this encounter Visit Diagnoses Not on filedocumented in this encounter Care Teams Casino Slot Supervisor Relationship Specialty Start Date End Date Crisgalen Buster R. [address] [place] [address] PCP - General Internal Medicine 03/20/22 Claire Linn MD [address] [place] [address] Specialist Cardiology 05/01/22 Renetta Morales DNP [address] [place] [address] Specialist Cardiology 05/01/22 documented as of this encounter
--- OUTSIDE RECORDS SUMMARY | 2025-09-12 12:32 | XMS_ITS | Encounter Summary ---
Author Organization [facility] Prior to 08/07/2024 Address [address] [place] [address] Care Team Providers Care Software Quality Automation Engineer Name Role Phone Ana Moreno MD Primary Care Provider Unavailab Lucien Wilkins MD Primary Care Provider [phone] Buster Hyed Primary Care Provider [phone] Claire Linn MD Unavailable [phone] Renetta Morales DNP Unavailable [phone] Reason for Visit * Reason Onset Date Comments Annual Wellness Outreach 06/30/2021 Encounter Details Date Type Department Care Team Description 06/30/2021 Telephone Adult Medicine [address] [phone] Justus Saavedra MD Annual Wellness Outreach Social History Tobacco Use Types Packs/Day Years [...] have Coronavirus / COVID-19? No / Unsure 06/01/2021 8:47 AM EDT documented as of this encounter Miscellaneous Notes * Telephone Encounter - Nickie Penn - 06/30/2021 10:54 AM EDT Ms. Hernadez was contacted by telephone. First attempt utr lvm documented in this encounter Plan of Treatment Not on file documented as of this encounter Visit Diagnoses Not on filedocumented in this encounter Care Teams Software Quality Automation Engineer Relationship Specialty Start Date End Date Ana Moreno MD PCP - General Internal Medicine 04/19/21 09/14/21 Lucien Le MD [address] [place] [address] PCP - General Internal Medicine 09/15/21 03/19/22 Buster Hyde [address] [place] [address] PCP - General Internal Medicine 03/20/22 Claire Linn MD [address] [place] [address]162 Specialist Cardiology 05/01/22 Renetta Morales DNP [address] [place] [address] 18718 Specialist Cardiology 05/01/22 documented as of this encounter
--- OUTSIDE RECORDS SUMMARY | 2025-09-12 12:32 | XMS_ITS | Encounter Summary ---
Author Organization [facility] Prior to 08/07/2024 Address [address] [place] [address] Care Team Providers Care Asset Protection Officer Name Role Phone Lucien Le MD Primary Care Provider [phone] Buster Hyde Primary Care Provider [phone] Claire Linn MD Unavailable Renetta Morales DNP Unavailable [phone] Reason for Visit * Reason Onset Date Comments VNA Call 11/07/2021 [facility] Encounter Details Date Type Department Care Team Description 11/07/2021 Telephone Adult Medicine [address] [phone] Lucien Le MD [address] [place] [address] [phone] [facility]NA Call ([facility]) Social History Tobacco Use Types Packs/Day Years [...] encounter Miscellaneous Notes * Telephone Encounter - Magda Angel - 11/08/2021 9:38 AM EST Attempted to contact patient twice, unable to leave vm. Mailbox is full. * Telephone Encounter - Eddy Chen L.P.N. - 11/07/2021 2:59 PM EST VO given to Belinda Patient was at [facility] Needs a hospital follow up * Telephone Encounter - Jimbo Koch - 11/07/2021 2:32 PM EST [facility] please contact at [phone] * Telephone Encounter - Lucien Le MD - 11/07/2021 1:45 PM EST Can we give this as a VO * Telephone Encounter - Eddy Chen L.P.N. - 11/07/2021 1:21 PM EST Needs a hospital follow up [facility]NA requesting order for PT Please review and advise * Telephone Encounter - Shonda Huang - 11/07/2021 12:50 PM EST VNA CALL Which [facility]NA office is calling? [facility] A Full name of caller: Belinda The caller is A Physical Therapist Is the caller at the patients home?: YES Reason for call: Saw patient today for physical therapy evaluation. Patient will be seen by PT twice a week for 4 weeks. Does caller need an urgent call back? NO Was CONTACT Telephone # obtained above?: YES Fax #: documented in this encounter Plan of Treatment Not on file documented as of this encounter Visit Diagnoses Not on filedocumented in this encounter Care Teams Asset Protection Officer Relationship Specialty Start Date End Date Lucien Le MD [address] [place] [address] PCP - General Internal Medicine 09/15/21 03/19/22 Buster Hyde [address] [place] [address]882 PCP - General Internal Medicine 03/20/22 Claire Linn MD [address] [place] [address]85 Specialist Cardiology 05/01/22 Renetta Morales DNP [address] [place] [address] Specialist Cardiology 05/01/22 documented as of this encounter
--- OUTSIDE RECORDS SUMMARY | 2025-09-12 12:32 | XMS_ITS | Encounter Summary ---
Author Organization [facility] Prior to 08/07/2024 Address [address] [place] [address] Care Team Providers Care Doper Name Role Phone Tricia Kaur MD Primary Care Provider Unava ilable Ana Moreno MD Primary Care Provider Unavailab Lucien Wilkins MD Primary Care Provider [phone] Buster Hyde Primary Care Provider [phone] Claire Linn MD Unavailable [phone] Renetta Morales DNP Unavailable [phone] Encounter Details Date Type Department Care Team Description 04/01/2017 Wellness Visit Medical Records [address] [place] [address] Tricia Kaur MD Social History Tobacco Use [...] on filedocumented in this encounter Care Teams Doper Relationship Specialty Start Date End Date Tricia Kaur MD PCP - General 04/16/11 04/18/21 Ana Moreno MD PCP - General Internal Medicine 04/19/21 09/14/21 Lucien Le MD [address] [place] [address] PCP - General Internal Medicine 09/15/21 03/19/22 Buster Hyde [address] [place] [address] PCP - General Internal Medicine 03/20/22 Claire Linn MD [address] [place] [address] 89809 Specialist Cardiology 05/01/22 Renetta Morales DNP [address] [place] [address]894 Specialist Cardiology 05/01/22 documented as of this encounter
--- OUTSIDE RECORDS SUMMARY | 2025-09-12 12:32 | XMS_ITS | Encounter Summary ---
Author Organization [facility] Prior to 08/07/2024 Address [address] [place] [address] Care Team Providers Care Heel Painter Name Role Phone Lucien Le MD Primary Care Provider Buster Hyde Primary Care Provider [phone] Claire Linn MD Unavailable [phone] Renetta Morales DNP Unavailable [phone] Reason for Visit * Reason Onset Date Comments Faxed Order 11/14/2021 order id [id number] Encounter Details Date Type Department Care Team Description 11/14/2021 Telephone Adult Medicine [address] [phone] Lucien Le MD [address] [place] [address] [phone] Faxed Order (order id [id number]) Social History Tobacco Use Types Packs/Day Years [...] encounter Miscellaneous Notes * Telephone Encounter - Kacy Diaz - 11/14/2021 11:12 AM EST Faxed order received from [facility] order id [id number]. Order placed in Dr. Le's bin. Please review, sign, date, and fax back to [phone]. documented in this encounter Plan of Treatment Not on file documented as of this encounter Visit Diagnoses Not on filedocumented in this encounter Care Teams Heel Painter Relationship Specialty Start Date End Date Lucien Le MD [address] [place] [address] PCP - General Internal Medicine 09/15/21 03/19/22 Buster Hyde [address] [place] [address] PCP - General Internal Medicine 03/20/22 Claire Linn MD [address] [place] [address] Specialist Cardiology 05/01/22 Renetta Morales DNP [address] [place] [address] Specialist Cardiology 05/01/22 documented as of this encounter
--- OUTSIDE RECORDS SUMMARY | 2025-09-12 12:32 | XMS_ITS | Encounter Summary ---
Author Organization [facility] Prior to 08/07/2024 Address [address] [place] [address] Care Team Providers Care Cook Fry Name Role Phone Buster Hyde Primary Care Provider [phone] Claire Linn MD Unavailable [phone] Renetta Morales DNP Unavailable [phone] Encounter Details Date Type Department Care Team Description 04/26/2022 SCAN Medical Records [address] [place] [id number] Abstract, Provider Social History Tobacco Use Types [...] Name Priority Date/Time Associated Diagnosis Comments OUTSIDE ECHO Routine 04/26/2022 documented in this encounter Results * OUTSIDE ECHO (04/26/2022) Provider Abstract CARDIOLOGY documented in this encounter Visit Diagnoses Not on filedocumented in this encounter Care Teams Cook Fry Relationship Specialty Start Date End Date Buster Hyde [address] [place] [address] PCP - General Internal Medicine 03/20/22 Claire Linn MD [address] [place] [address] Specialist Cardiology 05/01/22 Renetta Morales DNP [address] [place] [address] Specialist Cardiology 05/01/22 documented as of this encounter
--- OUTSIDE RECORDS SUMMARY | 2025-09-12 12:32 | XMS_ITS | Encounter Summary ---
Author Organization [facility] Prior to 08/07/2024 Address [address] [place] [address] Care Team Providers Care Getter Operator Name Role Phone Tricia Kaur MD Primary Care Provider Unava ilAna Augustine MD Primary Care Provider Unavailab Lucien Wilkins MD Primary Care Provider [phone] Buster Hyde Primary Care Provider [phone] Claire Linn MD Unavailable Renetta Morales DNP Unavailable Encounter Details Date Type Department Care Team Description 02/01/2021 Houseperson Report Medical Records [address] [place] [address] Austin Perez Social History Tobacco Use Types Packs/Day Years [...] have Coronavirus / COVID-19? No / Unsure 01/09/2021 8:11 AM EDT documented as of this encounter Plan of Treatment Not on file documented as of this encounter Visit Diagnoses Not on filedocumented in this encounter Care Teams Getter Operator Relationship Specialty Start Date End Date Tricia Kaur MD PCP - General 04/16/11 04/18/21 Ana Moreno MD PCP - General Internal Medicine 04/19/21 09/14/21 Lucien Le MD [address] [place] [address] PCP - General Internal Medicine 09/15/21 03/19/22 Buster Hyde [address] [place] [address] PCP - General Internal Medicine 03/20/22 Claire Linn MD [address] [place] [address] Specialist Cardiology 05/01/22 Renetta Morales DNP [address] [place] [address] Specialist Cardiology 05/01/22 documented as of this encounter
--- OUTSIDE RECORDS SUMMARY | 2025-09-12 12:32 | XMS_ITS | Encounter Summary ---
Author Organization [facility] Prior to 08/07/2024 Address [address] [place] [address] Care Team Providers Care Foundry Hand Name Role Phone Tricia Kaur MD Primary Care Provider Unava ilable Ana Moreno MD Primary Care Provider Unavailab Lucien Wilkins MD Primary Care Provider [phone] Buster Hyde Primary Care Provider [phone] Claire Linn MD Unavailable [phone] Renetta Morales DNP Unavailable [phone] Encounter Details Date Type Department Care Team Description 04/23/2016 Is Support Analyst Report Medical Records [address] [place] [address] Juan Garcia Social History Tobacco Use Types Packs/Day Years [...] on filedocumented in this encounter Care Teams Foundry Hand Relationship Specialty Start Date End Date Tricia Kaur MD PCP - General 04/16/11 04/18/21 Aan Moreno MD PCP - General Internal Medicine 04/19/21 09/14/21 Lucien Le MD [address] [place] [address] PCP - General Internal Medicine 09/15/21 03/19/22 Buster Hyde [address] [place] [address] PCP - General Internal Medicine 03/20/22 Claire Linn MD [address] [place] [address]45 Specialist Cardiology 05/01/22 Renetta Morales DNP [address] [place] [address] Specialist Cardiology 05/01/22 documented as of this encounter
--- OUTSIDE RECORDS SUMMARY | 2025-09-12 12:32 | XMS_ITS | Encounter Summary ---
Author Organization [facility] Prior to 08/07/2024 Address [address] [place] [address] Care Team Providers Care Director Script Name Role Phone Tricia Kaur MD Primary Care Provider Unava ilable Ana Moreno MD Primary Care Provider Unavailab Lucien Wilkins MD Primary Care Provider [phone] Buster Hyde Primary Care Provider [phone] Claire Linn MD Unavailable [phone] Renetta Morales DNP Unavailable [phone] Encounter Details Date Type Department Care Team Description 02/16/2021 Home Health Certification Medical Records [address] [place] [address] Reese Alejo [address] [place] [address] Social History Tobacco Use Types Packs/Day Years [...] on filedocumented in this encounter Care Teams Director Script Relationship Specialty Start Date End Date Tricia Kaur MD PCP - General 04/16/11 04/18/21 Ana Moreno MD PCP - General Internal Medicine 04/19/21 09/14/21 Lucien Le MD [address] [place] [address] PCP - General Internal Medicine 09/15/21 03/19/22 Buster Hyde [address] [place] [address] 149[address] PCP - General Internal Medicine 03/20/22 Claire Linn MD [address] [place] [address] Specialist Cardiology 05/01/22 Renetta Morales DNP [address] [place] [address] 19143 Specialist Cardiology 05/01/22 documented as of this encounter
--- OUTSIDE RECORDS SUMMARY | 2025-09-12 12:32 | XMS_ITS | Encounter Summary ---
Author Organization [facility] Prior to 08/07/2024 Address [address] [place] [address] Care Team Providers Care Spot Facer Name Role Phone Tricia Kaur MD Primary Care Provider Unava ilable Ana Moreno MD Primary Care Provider Unavailab Lucien Wilkins MD Primary Care Provider [phone] Buster Hyde Primary Care Provider [phone] Claire Linn MD Unavailable [phone] Renetta Morales DNP Unavailable [phone] Encounter Details Date Type Department Care Team Description 02/13/2016 Tooth Inspector Report Medical Records [address] [place] [address] Harlan Ford MD Social History Tobacco Use [...] on filedocumented in this encounter Care Teams Spot Facer Relationship Specialty Start Date End Date Tricia Kaur MD PCP - General 04/16/11 04/18/21 Ana Moreno MD PCP - General Internal Medicine 04/19/21 09/14/21 Lucien Le MD [address] [place] [address] PCP - General Internal Medicine 09/15/21 03/19/22 Buster Hyde [address] [place] [address] PCP - General Internal Medicine 03/20/22 Claire Linn MD [address] [place] [address] 10074 Specialist Cardiology 05/01/22 Renetta Morales DNP [address] [place] [address]72 Specialist Cardiology 05/01/22 documented as of this encounter
--- OUTSIDE RECORDS SUMMARY | 2025-09-12 12:32 | XMS_ITS | Encounter Summary ---
Author Organization [facility] Prior to 08/07/2024 Address [address] [place] [address] Care Team Providers Care Mold Closer Helper Name Role Phone Ana Moreno MD Primary Care Provider Unavailab Lucien Wilkins MD Primary Care Provider [phone] Buster Hyde Primary Care Provider [phone] Claire Linn MD Unavailable [phone] Renetta Morales DNP Unavailable [phone] Encounter Details Date Type Department Care Team Description 04/20/2021 Home Health Certification Medical Records [address] [place] [address] Reese Alejo [address] [place] [address] Social History Tobacco Use Types Packs/Day Years [...] on filedocumented in this encounter Care Teams Mold Closer Helper Relationship Specialty Start Date End Date Ana Moreno MD PCP - General Internal Medicine 04/19/21 09/14/21 Lucien Le MD [address] [place], [place] [phone] PCP - General Internal Medicine 09/15/21 03/19/22 Buster Hyde [address] [place] [address] PCP - General Internal Medicine 03/20/22 Claire Linn MD [address] [place] [address] Specialist Cardiology 05/01/22 Renetta Morales DNP [address] [place] [address] Specialist Cardiology 05/01/22 documented as of this encounter
--- OUTSIDE RECORDS SUMMARY | 2025-09-12 12:32 | XMS_ITS | Encounter Summary ---
Author Organization [facility] Prior to 08/07/2024 Address [address] [place] [address] Care Team Providers Care Glass Carrier Name Role Phone Lucien Le MD Primary Care Provider [phone] Buster Hyde Primary Care Provider [phone] Claire Linn MD Unavailable [phone] Renetta Morales DNP Unavailable [phone] Reason for Visit * Reason Onset Date Comments Faxed Order 11/14/2021 Encounter Details Date Type Department Care Team Description 11/14/2021 Telephone Adult Medicine [address] [address] Lucien Le MD [address] [place] [address] [phone] Faxed Order Social History Tobacco Use Types [...] Telephone Encounter - Kacy Diaz - 11/14/2021 11:06 AM EST Faxed order received from [facility]. Order ID [id number] DATE 11/14/[address] Le's bin. Please review, sign, date, and fax back to [phone]. documented in this encounter Plan of Treatment Not on file documented as of this encounter Visit Diagnoses Not on filedocumented in this encounter Care Teams Glass Carrier Relationship Specialty Start Date End Date Lucien Le MD [address] [place] [address] PCP - General Internal Medicine 09/15/21 03/19/22 Buster Hyde [address] [place] [address]10 PCP - General Internal Medicine 03/20/22 Claire Linn MD [address] [place] [address] Specialist Cardiology 05/01/22 Renetta Morales DNP [address] [place] [address] [phone] Specialist Cardiology 05/01/22 documented as of this encounter
--- OUTSIDE RECORDS SUMMARY | 2025-09-12 12:32 | XMS_ITS | Encounter Summary ---
Author Organization [facility] Prior to 08/07/2024 Address [address] [place] [address] Care Team Providers Care Document Analyst Name Role Phone Lucien Le MD Primary Care Provider [phone] Buster Hyde Primary Care Provider [phone] Claire Linn MD Unavailable [phone] Renetta Morales DNP Unavailable [phone] Reason for Visit * Reason Onset Date Comments Faxed Order 11/22/2021 Encounter Details Date Type Department Care Team Description 11/22/2021 Telephone Adult Medicine [address] [phone] Lucien Le MD [address] [place] [address] [phone] Faxed Order Social History Tobacco Use Types [...] encounter Miscellaneous Notes * Telephone Encounter - Sharri Garcia - 11/22/2021 12:47 PM EST Liset pope Order # [id number] documented in this encounter Plan of Treatment Not on file documented as of this encounter Visit Diagnoses Not on filedocumented in this encounter Care Teams Document Analyst Relationship Specialty Start Date End Date Lucien Le MD [address] [place] [address] PCP - General Internal Medicine 09/15/21 03/19/22 Buster Hyde [address] [place] [address] PCP - General Internal Medicine 03/20/22 Claire Linn MD [address] [place] [address] Specialist Cardiology 05/01/22 Renetta Morales DNP [address] [place] [address] Specialist Cardiology 05/01/22 documented as of this encounter
--- OUTSIDE RECORDS SUMMARY | 2025-09-12 12:32 | XMS_ITS | Encounter Summary ---
Author Organization [facility] Prior to 08/07/2024 Address [address] [place] [address] Care Team Providers Care Zoo Director Name Role Phone Buster Hyde Primary Care Provider [phone] Claire Linn MD Unavailable [phone] Renetta Morales DNP Unavailable [phone] Encounter Details Date Type Department Care Team Description 08/04/2024 Telephone INFECTIOUS DISEASE [address], [address] [address] Mayr Mcdaniel MD [address] [place] [phone] Social History Tobacco Use Types Packs/Day Years [...] encounter Miscellaneous Notes * Telephone Encounter - Anjana Morfin MA - 08/06/2024 10:19 AM EDT 2nd attempt made to reach patient for scheduling * Telephone Encounter - Anjana Morfin MA - 08/04/2024 4:30 PM EDT 1st attempt made to reach patient,unable to LVM not set up * Telephone Encounter - Anjana Morfin MA - 08/04/2024 3:08 PM EDT Please review for scheduling documented in this encounter Plan of Treatment Not on file documented as of this encounter Visit Diagnoses Not on filedocumented in this encounter Care Teams Zoo Director Relationship Specialty Start Date End Date Buster Hyde [address] [place] [address] PCP - General Internal Medicine 03/20/22 Claire Linn MD [address] [place] [address] Specialist Cardiology 05/01/22 Renetta Morales DNP [address] [place] [address] Specialist Cardiology 05/01/22 documented as of this encounter
--- OUTSIDE RECORDS SUMMARY | 2025-09-12 12:32 | XMS_ITS | Encounter Summary ---
Author Organization [facility] Prior to 08/07/2024 Address [address] [place] [address] Care Team Providers Care Theology Teacher Name Role Phone Buster Hyde Primary Care Provider [phone] Claire Linn MD Unavailable [phone] Renetta Morales DNP Unavailable [phone] Encounter Details Date Type Department Care Team Description 08/06/2024 Orders Only Medical Records [address] [place] [address] [facility] Social History Tobacco Use Types Packs/Day Years [...] Date/Time Associated Diagnosis Comments OUTSIDE LAB Routine 07/06/2024 documented in this encounter Results * OUTSIDE LAB (07/06/2024) [facility] documented in this encounter Visit Diagnoses Not on filedocumented in this encounter Care Teams Theology Teacher Relationship Specialty Start Date End Date Buster Hyde [address] [place] [address] PCP - General Internal Medicine 03/20/22 Claire Linn MD [address] [place] [address] Specialist Cardiology 05/01/22 Renetta Morales DNP [address] [place] [address] Specialist Cardiology 05/01/22 documented as of this encounter
--- OUTSIDE RECORDS SUMMARY | 2025-09-12 12:33 | XMS_ITS | Encounter Summary ---
Author Organization [facility] Prior to 08/07/2024 Address [address] [place] [address] Care Team Providers Care Grade Checker Name Role Phone Lucien Le MD Primary Care Provider [phone] Buster Hyde Primary Care Provider [phone] Claire Linn MD Unavailable [phone] Renetta Morales DNP Unavailable [phone] Encounter Details Date Type Department Care Team Description 02/11/2022 Hospital Medical Records [address] [place] [id number] [place] [address] Social History Tobacco Use Types Packs/Day Years [...] Date/Time Associated Diagnosis Comments OUTSIDE LAB Routine 02/11/2022 OUTSIDE LAB Routine 02/11/2022 documented in this encounter Results * OUTSIDE LAB (02/11/2022) Provider Abstract LAB * OUTSIDE LAB (02/11/2022) Provider Abstract LAB documented in this encounter Visit Diagnoses Not on filedocumented in this encounter Care Teams Grade Checker Relationship Specialty Start Date End Date Lucien Le MD [address] [place] [address] PCP - General Internal Medicine 09/15/21 03/19/22 Buster Hyde [address] [place] [address] PCP - General Internal Medicine 03/20/22 Claire Linn MD [address] [place] [address] Specialist Cardiology 05/01/22 Renetta Morales DNP [address] [place] [address] Specialist Cardiology 05/01/22 documented as of this encounter
--- OUTSIDE RECORDS SUMMARY | 2025-09-12 12:33 | XMS_ITS | Encounter Summary ---
Author Organization [facility] Prior to 08/07/2024 Address [address] [place] [address] Care Team Providers Care Lime Boiler Name Role Phone Buster Hyde Primary Care Provider [phone] Claire Linn MD Unavailable [phone] Renetta Morales DNP Unavailable [phone] Encounter Details Date Type Department Care Team Description 09/18/2022 Hospital Medical Records [address] [place] [address] Swapna White MD Social History Tobacco Use Types Packs/Day [...] suspected to have Coronavirus/COVID-19? No / Unsure 09/17/2022 11:56 AM EST documented as of this encounter Plan of Treatment Not on file documented as of this encounter Visit Diagnoses Not on filedocumented in this encounter Care Teams Lime Boiler Relationship Specialty Start Date End Date Buster Hyde [address] [place] [address] PCP - General Internal Medicine 03/20/22 Cliare Linn MD [address] [place], [place] [phone] Specialist Cardiology 05/01/22 Renetta Morales DNP [address] [place] [address] Specialist Cardiology 05/01/22 documented as of this encounter
--- OUTSIDE RECORDS SUMMARY | 2025-09-12 12:33 | XMS_ITS | Encounter Summary ---
Author Organization [facility] Prior to 08/07/2024 Address [address] [place] [address] Care Team Providers Care Director Consumer Affairs Name Role Phone Tricia Kaur MD Primary Care Provider Unava ilable Ana Moreno MD Primary Care Provider Unavailab Lucien Wilkins MD Primary Care Provider [phone] Buster Hyde Primary Care Provider [phone] Claire Linn MD Unavailable [phone] Renetta Morales DNP Unavailable [phone] Encounter Details Date Type Department Care Team Description 12/19/2016 Induction Brazer Report Medical Records [address] [place] [address] Claudio Crane Social History Tobacco Use Types [...] filedocumented in this encounter Care Teams Director Consumer Affairs Relationship Specialty Start Date End Date Tricia Kaur MD PCP - General 04/16/11 04/18/21 Ana Moreno MD PCP - General Internal Medicine 04/19/21 09/14/21 Lucien Le MD [address] [place] [address] PCP - General Internal Medicine 09/15/21 03/19/22 Buster Hyde [address] [place] [address] PCP - General Internal Medicine 03/20/22 Claire Linn MD [address] [place] [address] Specialist Cardiology 05/01/22 Renetta Morales DNP [address] [place] [address] Specialist Cardiology 05/01/22 documented as of this encounter
--- OUTSIDE RECORDS SUMMARY | 2025-09-12 12:33 | XMS_ITS | Encounter Summary ---
Author Organization [facility] Prior to 08/07/2024 Address [address] [place] [address] Care Team Providers Care Director Of Community Center Name Role Phone Tricia Kaur MD Primary Care Provider Unava ilable Yesika Rosen MD Primary Care Provider Unavailable Ana Moreno MD Primary Care Provider Unavailab Lucien Wilkins MD Primary Care Provider [phone] Buster Hyde Primary Care Provider [phone] Claire Linn MD Unavailable [phone] Renetta Morales DNP Unavailable [phone] Encounter Details Date Type Department Care Team Description 04/19/2010 Fusion Analyst Report Medical Records [address] [place] [address] Mattie Bernstein Social History Tobacco Use Types Packs/Day Years Used Date Smoking Tobacco: Never Alcohol Use Standard Drinks/Week Comments Yes 0 (1 standard drink = 0.6 oz pur e alcohol) soc Sex Assigned at Date Recorded Not on file Job Start Date Occupation Industry Not on file Not on file Not on file documented as of this encounter Plan of Treatment Not on file documented as of this encounter Visit Diagnoses Not on filedocumented in this encounter Care Teams Director Of Community Center Relationship Specialty Start Date End Date Tricia Kaur MD PCP - General 04/16/11 04/18/21 Yesika Rosen MD PCP - General 03/07/0604/15 Ana Moreno MD PCP - General Internal Medicine 04/19/21 09/14/21 Lucien Le MD [address] [place] [address] PCP - General Internal Medicine 09/15/21 03/19/22 Buster Hyde [address] [place] [address] PCP - General Internal Medicine 03/20/22 Claire Linn MD [address] [place] [address] Specialist Cardiology 05/01/22 Renetta Morales DNP [address] [place] [address] Specialist Cardiology 05/01/22 documented as of this encounter
--- OUTSIDE RECORDS SUMMARY | 2025-09-12 12:33 | XMS_ITS | Encounter Summary ---
Author Organization [facility] Prior to 08/07/2024 Address [address] [place] [address] Care Team Providers Care Load Checker Name Role Phone Tricia Kaur MD Primary Care Provider Unava ilable Ana Moreno MD Primary Care Provider Unavailab Lucien Wilkins MD Primary Care Provider [phone] Buster Hyde Primary Care Provider [phone] Claire Linn MD Unavailable [phone] Renetta Morales DNP Unavailable [phone] Encounter Details Date Type Department Care Team Description 10/27/2018 Home Health Certification Medical Records [address] [place] [address] Social History Tobacco Use Types Packs/Day Years [...] on filedocumented in this encounter Care Teams Load Checker Relationship Specialty Start Date End Date Tricia Kaur MD PCP - General 04/16/11 04/18/21 Ana Moreno MD PCP - General Internal Medicine 04/19/21 09/14/21 Lucien Le MD [address] [place] [address] PCP - General Internal Medicine 09/15/21 03/19/22 Buster Hyde [address] [place] [address] PCP - General Internal Medicine 03/20/22 Claire Linn MD [address] [place] [address] Specialist Cardiology 05/01/22 Renetta Morales DNP [address] [place] [address] Specialist Cardiology 05/01/22 documented as of this encounter
--- OUTSIDE RECORDS SUMMARY | 2025-09-12 12:33 | XMS_ITS | Encounter Summary ---
Author Organization [facility] Prior to 08/07/2024 Address [address] [place] [address] Care Team Providers Care Supervisor Display Fabrication Name Role Phone Tricia Kaur MD Primary Care Provider Unava ilable Ana Moreno MD Primary Care Provider Unavailab Lucien Wilkins MD Primary Care Provider [phone] Buster Hyde Primary Care Provider [phone] Claire Linn MD Unavailable [phone] Renetta Morales DNP Unavailable [phone] Encounter Details Date Type Department Care Team Description 09/17/2018 Hospital Medical Records [address] [place] [address] Aldo Morgan Social History Tobacco Use Types Packs/Day Years [...] filedocumented in this encounter Care Teams Supervisor Display Fabrication Relationship Specialty Start Date End Date Tricia Kaur MD PCP - General 04/16/11 04/18/21 Ana Moreno MD PCP - General Internal Medicine 04/19/21 09/14/21 Lucien Le MD [address] [place] [address] PCP - General Internal Medicine 09/15/21 03/19/22 Buster Hyde [address] [place] [address] PCP - General Internal Medicine 03/20/22 Claire Linn MD [address] [place] [address] Specialist Cardiology 05/01/22 Renetta Morales DNP [address] [place] [address] Specialist Cardiology 05/01/22 documented as of this encounter
--- OUTSIDE RECORDS SUMMARY | 2025-09-12 12:33 | XMS_ITS | Encounter Summary ---
Author Organization [facility] Prior to 08/07/2024 Address [address] [place] [address] Care Team Providers Care Bistro Attendant Name Role Phone Tricia Kaur MD Primary Care Provider Unava ilable Ana Moreno MD Primary Care Provider Unavailab Lucien Wilkins MD Primary Care Provider [phone] Buster Hyde Primary Care Provider [phone] Claire Linn MD Unavailable [phone] Renetta Morales DNP Unavailable [phone] Encounter Details Date Type Department Care Team Description 08/05/2016 SNF discharge summary Medical Records [address] [place] [address] Abstract, Provider Social History Tobacco Use Types [...] on filedocumented in this encounter Care Teams Bistro Attendant Relationship Specialty Start Date End Date Tricia Kaur MD PCP - General 04/16/11 04/18/21 Ana Moreno MD PCP - General Internal Medicine 04/19/21 09/14/21 Lucien Le MD [address] [place] [address] PCP - General Internal Medicine 09/15/21 03/19/22 Buster Hyde [address] [place] [address] PCP - General Internal Medicine 03/20/22 Claire Linn MD [address] [place] [address] Specialist Cardiology 05/01/22 Renetta Morales DNP [address] [place] [address] Specialist Cardiology 05/01/22 documented as of this encounter
--- OUTSIDE RECORDS SUMMARY | 2025-09-12 12:33 | XMS_ITS | Encounter Summary ---
Author Organization [facility] Prior to 08/07/2024 Address [address] [place] [address] Care Team Providers Care Torpedo Specialist Name Role Phone Buster Hyde Primary Care Provider [phone] Claire Linn MD Unavailable [phone] Renetta Morales DNP Unavailable [phone] Encounter Details Date Type Department Care Team Description 04/18/2022 Concrete Pavement Installer Report Medical Records [address] [place] [address] Linden Ledezma MD Social History Tobacco Use Types Packs/Day [...] on filedocumented in this encounter Care Teams Torpedo Specialist Relationship Specialty Start Date End Date Buster Hyde [address] [place] [address] PCP - General Internal Medicine 03/20/22 Claire Linn MD [address] [place] [address] Specialist Cardiology 05/01/22 Renetta Morales, RICHARD [address] [place] [address] Specialist Cardiology 05/01/22 documented as of this encounter
--- OUTSIDE RECORDS SUMMARY | 2025-09-12 12:33 | XMS_ITS | Encounter Summary ---
Author Organization [facility] Prior to 08/07/2024 Address [address] [place] [address] Care Team Providers Care Printing Gray Cloth Tender Name Role Phone Buster Hyde Primary Care Provider [phone] Claire Linn MD Unavailable [phone] Renetta Morales DNP Unavailable [phone] Encounter Details Date Type Department Care Team Description 05/02/2022 Physical Therapy Aide Report Medical Records [address] [place] [address] Neno Nguyen MD Social History Tobacco Use Types Packs/Day [...] on filedocumented in this encounter Care Teams Printing Gray Cloth Tender Relationship Specialty Start Date End Date Buster Hyde [address] [place] [address] PCP - General Internal Medicine 03/20/22 Claire Linn MD [address] [place] [address] Specialist Cardiology 05/01/22 Renetta Morales, RICHARD [address] [place] [address] Specialist Cardiology 05/01/22 documented as of this encounter
--- OUTSIDE RECORDS SUMMARY | 2025-09-12 12:33 | XMS_ITS | Encounter Summary ---
Author Organization [facility] Prior to 08/07/2024 Address [address] [place] [address] Care Team Providers Care Senior Product Development Engineer Name Role Phone Buster Hyde Primary Care Provider [phone] Claire Linn MD Unavailable [phone] Renetta Morales DNP Unavailable [phone] Encounter Details Date Type Department Care Team Description 11/02/2022 SCAN Medical Records [address] [place] [address] Raman Looney MD Social History Tobacco Use Types Packs/Day [...] suspected to have Coronavirus/COVID-19? No / Unsure 10/19/2022 10:02 AM EST documented as of this encounter Plan of Treatment Not on file documented as of this encounter Procedures Procedure Name Priority Date/Time Associated Diagnosis Comments OUTSIDE VASCULAR STUDY Routine 11/02/2022 documented in this encounter Results * OUTSIDE VASCULAR STUDY (11/02/2022) Provider Abstract CARDIOLOGY documented in this encounter Visit Diagnoses Not on filedocumented in this encounter Care Teams Senior Product Development Engineer Relationship Specialty Start Date End Date Buster Hyde [address] [place] [address] PCP - General Internal Medicine 03/20/22 Claire Linn MD [address] [place] [address] Specialist Cardiology 05/01/22 Renetta Morales DNP [address] [place] [address] Specialist Cardiology 05/01/22 documented as of this encounter
--- OUTSIDE RECORDS SUMMARY | 2025-09-12 12:33 | XMS_ITS | Encounter Summary ---
Author Organization [facility] Prior to 08/07/2024 Address [address] [place] [address] Care Team Providers Care Bottle House Quality Control Technician Name Role Phone Lucien Le MD Primary Care Provider [phone] Buster Hyde Primary Care Provider [phone] Claire Linn MD Unavailable [phone] Renetta Morales DNP Unavailable [phone] Encounter Details Date Type Department Care Team Description 02/01/2022 SCAN Medical Records [address] [place] [address] Jack Stallings MD Social History Tobacco Use Types Packs/Day [...] Associated Diagnosis Comments OUTSIDE VASCULAR STUDY Routine 02/01/2022 documented in this encounter Results * OUTSIDE VASCULAR STUDY (02/01/2022) Provider Abstract CARDIOLOGY documented in this encounter Visit Diagnoses Not on filedocumented in this encounter Care Teams Bottle House Quality Control Technician Relationship Specialty Start Date End Date Lucien Le MD [address] [place] [address] PCP - General Internal Medicine 09/15/21 03/19/22 Buster Hyde [address] [place] [address] PCP - General Internal Medicine 03/20/22 Claire Linn MD [address] [place] [address] Specialist Cardiology 05/01/22 Renetta Morales DNP [address] [place] [address] Specialist Cardiology 05/01/22 documented as of this encounter
--- OUTSIDE RECORDS SUMMARY | 2025-09-12 12:33 | XMS_ITS | Encounter Summary ---
Author Organization [facility] Prior to 08/07/2024 Address [address] [place] [address] Care Team Providers Care Public Affairs Specialist Name Role Phone Lucien Le MD Primary Care Provider [phone] Buster Hyde Primary Care Provider [phone] Claire Linn MD Unavailable [phone] Renetta Morales DNP Unavailable [phone] Reason for Visit * Reason Onset Date Comments Faxed Order 12/05/2021 Order # [id number] Encounter Details Date Type Department Care Team Description 12/05/2021 Telephone Adult Medicine [address] [id number] Lucien Le MD [address] [place] [address] [phone] Faxed Order (Order # [id number]) Social History Tobacco Use Types Packs/Day Years [...] encounter Miscellaneous Notes * Telephone Encounter - Angela Keita - 12/05/2021 1:33 PM EST Faxed order from [facility]. Order # [id number]. Please sign, date, and fax back. documented in this encounter Plan of Treatment Not on file documented as of this encounter Visit Diagnoses Not on filedocumented in this encounter Care Teams Public Affairs Specialist Relationship Specialty Start Date End Date Lucien Le MD [address] [place] [address] PCP - General Internal Medicine 09/15/21 03/19/22 Buster Hyde [address] [place] [address] PCP - General Internal Medicine 03/20/22 Claire Linn MD [address] [place] [address] Specialist Cardiology 05/01/22 Renetta Morales DNP [address] [place] [address] Specialist Cardiology 05/01/22 documented as of this encounter
--- OUTSIDE RECORDS SUMMARY | 2025-09-12 12:33 | XMS_ITS | Encounter Summary ---
Author Organization [facility] Prior to 08/07/2024 Address [address] [place] [address] Care Team Providers Care Cashier Credit Name Role Phone Tricia Kaur MD Primary Care Provider Unava ilable Ana Moreno MD Primary Care Provider Unavailab Lucien Wilkins MD Primary Care Provider [phone] Buster Hyde Primary Care Provider [phone] Claire Linn MD Unavailable [phone] Renetta Morales DNP Unavailable [phone] Encounter Details Date Type Department Care Team Description 02/26/2018 Orders Only Adult Medicine [address] [phone] Tricia Kaur MD Preoperative examination; Screening for deficiency anemia; 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 Social History Tobacco Use Types Packs/Day Years [...] on file documented as of this encounter Results * LDH (03/12/2018 7:45 AM EDT) LACTATE DEHYDROGENASE 202 120 - 246 U/L 03/12/2018 2:30 PM EDT [facility] 03/12/2018 7:45 AM EDT 03/12/2018 7:45 AM EDT Trciia Kaur MD LAB [facility] * ASSAY, PREALBUMIN (03/12/2018 7:45 AM EDT) PREALBUMIN 24 18 - 45 mg/dL 03/12/2018 2:30 PM EDT [facility] 03/12/2018 7:45 AM EDT 03/12/2018 7:45 AM EDT Tricia Kaur MD LAB Performing Organization Address City/[facility] Co de Phone Number [facility] * URIC ACID (03/12/2018 7:45 AM EDT) Uric Acid 5.2 2.1 - 6.2 mg/dL 03/12/2018 10:[address] [facility] 03/12/2018 7:45 AM EDT 03/12/2018 7:45 AM EDT Tricia Kaur MD LAB Performing Organization Address City/[facility] Co de Phone Number [facility] [address] [facility] * RBC SEDIMENTATION RATE, NON-AUTO (03/12/2018 7:45 AM EDT) ESR 22 0 - 30 mm/hr 03/12/2018 1:[address] [facility] 03/12/2018 7:45 AM EDT 03/12/2018 7:45 AM EDT Tricia Kaur MD LAB Performing Organization Address City/[facility] Co de Phone Number [facility] [address] [facility] * URINALYSIS, COMPLETE (03/12/2018 7:45 AM EDT) SPECIFIC GRAVITY, URINE <= 1.005 1.005 - 1.030 03/12/2018 11:37 AM [facility] PH, URINE 6.5 5 - 8 03/12/2018 11:37 AM [facility] PROTEIN, URINE NEGATIVE <=TRACE mg/dL 03/12/2018 11:37 AM [facility] GLUCOSE, URINE (UA) NEGATIVE NEGATIVE mg/dL 03/12/2018 11:37 AM [facility] KETONE, URINE NEGATIVE NEGATIVE mg/dL 03/12/2018 11:37 AM [facility] BILIRUBIN URINE NEGATIVE NEGATIVE 03/12/2018 11:37 AM [facility] UROBILINOGEN, URINE 0.2 0.2 - 1.0 E.U./dL 03/12/2018 11:37 AM [facility] BLOOD, URINE NEGATIVE NEGATIVE 03/12/2018 11:37 AM [facility] NITRITE,URINE NEGATIVE NEGATIVE 03/12/2018 11:37 AM [facility] LEUKOCYTE ESTERASE, URINE NEGATIVE NEGATIVE 03/12/2018 11:37 AM [facility] RBC-Urine NONE 0 - 4 /hpf 03/12/2018 4:01 PM [facility] WBC, URINE RARE 0 - 4 /hpf 03/12/2018 4:01 PM [facility] EPITHELIAL CELLS URINE RARE 0 - 60 03/12/2018 4:01 PM [facility] 03/12/2018 7:45 AM EDT 03/12/2018 7:45 AM EDT Tricia Kaur MD LAB Performing Organization Address City/State/[facility] Co de Phone Number [facility] [address] [facility] * THROMBOPLASTIN TIME, PARTIAL (03/12/2018 7:45 AM EDT) PTT 30.6 20.6 - 33.6 SEC 03/12/2018 12:01 PM [facility] Comment: Please note adjusted APTT (sec) reference range effective 2016. 03/12/2018 7:45 AM EDT 03/12/2018 7:45 AM EDT Tricia Kaur MD LAB Performing Organization Address [facility] de Phone Number [address] * PROTHROMBIN TIME (03/12/2018 7:45 AM EDT) PT 12.8 11.6 - 15.6 SEC 03/12/2018 11:45 AM [facility] Comment: Please note adjusted PT(sec)normal reference range effective 15. INR 0.96 03/12/2018 11:45 AM [facility] 03/12/2018 7:45 AM EDT 03/12/2018 7:45 AM EDT Tricia Kaur MD LAB Performing Organization Address [facility] Phone Number [address] * (ABNORMAL) COMPREHENSIVE METABOLIC PANEL (03/12/2018 7:45 AM EDT) GLUCOSE 90 70 - 100 mg/dL 03/12/2018 10:42 AM [facility] Comment: Reference range applicable to fasting specimens only Based on recommendations from the ADA and AACE, the fasting glucose reference range has been changed to 70-100 mg/dL. This change is effective February 20, 2010 BUN 29(H) 5 - 25 mg/dL 03/12/2018 10:42 AM [facility] CREAT 0.6(L) 0.7 - 1.5 mg/dL 03/12/2018 10:42 AM [facility] BUN/CREAT RATIO 48.3(H) 6.0 - 20.0 03/12/2018 10:42 AM [facility] GFR > 60 >60 03/12/2018 11:00 AM [facility] Comment: If patient is -Vietnamese, multiply result by 1.21 Chronic Kidney Disease: < 60 ml/min/1.73 square meters Kidney Failure: < 15 ml/min/1.73 square meters Sodium 140 133 - 145 mEq/L 03/12/2018 10:[address] [facility] Potassium 4.0 3.5 - 5.5 mEq/L 03/12/2018 10:[address] [facility] Chloride 99 96 - 108 mEq/L 03/12/2018 10:[address] [facility] CO2 32.3(H) 21.0 - 32.0 mEq/L 03/12/2018 10:[address] [facility] CALCIUM 10.7(H) 8.5 - 10.5 mg/dL 03/12/2018 10:42 AM EDT [facility] TOTAL PROTEIN 6.8 6.0 - 8.3 gm/dL 03/12/2018 10:[address] [facility] Albumin 4.3 3.2 - 5.6 gm/dL 03/12/2018 10:[address] [facility] GLOBULIN 2.5 1.9 - 4.4 gm/dL 03/12/2018 10:[address] [facility] A/G RATIO 1.7 1.1 - 2.3 03/12/2018 10:[address] [facility] BILI,TOTAL 0.3 0.0 - 1.2 mg/dL 03/12/2018 10:[address] [facility] AST (SGOT) 24 10 - 42 U/L 03/12/2018 10:42 AM EDT [facility] ALT( SGPT) 18 10 - 60 U/L 03/12/2018 10:[address] [facility] ALK PHOS 81 42 - 121 U/L 03/12/2018 10:42 AM [facility] 03/12/2018 7:45 AM EDT 03/12/2018 7:45 AM EDT Tricia Kaur MD LAB [facility] [address] [facility] * (ABNORMAL) CBC (AUTO DIFF PLATELET) (03/12/2018 7:45 AM EDT) WBC 3.1(L) 4.8 - 10.8 x10-3 03/12/2018 8:33 AM EDT [facility] RBC 4.0 3.8 - 4.8 x10-6 03/12/2018 8:33 AM EDT [facility] HGB 12.6 11.5 - 16.0 g/dl 03/12/2018 8:33 AM EDT [facility] HCT 36.9 35 - 47 % 03/12/2018 8:33 AM EDT [facility] MCV 92.9 79 - 98 fl 03/12/2018 8:33 AM EDT [facility] MCH 31.7 27 - 32 pg 03/12/2018 8:33 AM EDT [facility] MCHC 34.1 32 - 37 g/dl 03/12/2018 8:33 AM EDT [facility] RDW 12.3 11 - 15 % 03/12/2018 8:33 AM EDT [facility] PLT COUNT 259 130 - 400 x10-3 03/12/2018 8:33 AM EDT [facility] MEAN PLATELET VOLUME 10.4 7 - 11 fl 03/12/2018 8:33 AM EDT [facility] NEUT % 48.8 41 - 85 % 03/12/2018 8:33 AM EDT [facility] LYMPH % 34.7 15 - 48 % 03/12/2018 8:33 AM EDT [facility] MONO % 10.5 0 - 12 % 03/12/2018 8:33 AM EDT [facility] EOS % 5.4(H) 0 - 5 % 03/12/2018 8:33 AM EDT [facility] BASO % 0.6 0 - 2 % 03/12/2018 8:33 AM EDT [facility] 03/12/2018 7:45 AM EDT 03/12/2018 7:45 AM EDT Tricia Kaur MD LAB [facility] [address] * URINE, CULTURE (03/12/2018 7:44 AM EDT) Urine (Urine) 03/12/2018 7:4 4 AM EDT 03/12/2018 7:45 AM EDT Narrative EIMLY SEGOVIA - 03/13/2018 7:43 AM EDT No growth Tricia Kaur MD LAB EMILY SEGOVIA documented in this encounter Visit Diagnoses Diagnosis Preoperative examination Preoperative examination, unspecified Screening for deficiency anemia Screening for other and unspecified deficiency anemia 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 documented in this encounter Care Teams Cashier Credit Relationship Specialty Start Date End Date Tricia Kaur MD PCP - General 04/16/11 04/18/21 Ana Moreno MD PCP - General Internal Medicine 04/19/21 09/14/21 Lucien Le MD [address] [place] [address] PCP - General Internal Medicine 09/15/21 03/19/22 Buster Hyde [address] [place] [address] PCP - General Internal Medicine 03/20/22 Claire Linn MD [address] [place] [address] Specialist Cardiology 05/01/22 Renetta Morales DNP [address] [place] [address] Specialist Cardiology 05/01/22 documented as of this encounter
--- OUTSIDE RECORDS SUMMARY | 2025-09-12 12:33 | XMS_ITS | Encounter Summary ---
Author Organization [facility] Prior to 08/07/2024 Address [address] [place] [address] Care Team Providers Care News Videotape Editor Name Role Phone Buster Hyde Primary Care Provider [phone] Claire Linn MD Unavailable [phone] Renetta Morales DNP Unavailable [phone] Reason for Visit * Reason Onset Date Comments [facility] Call 11/08/2022 Encounter Details Date Type Department Care Team Description 11/08/2022 Telephone Adult [address] [address] Buster Hyde [address] [place] [address] [phone] [facility] Call Social History Tobacco Use Types [...] AM EST documented as of this encounter Miscellaneous Notes * Telephone Encounter - Eddy Chen L.P.N. - 11/08/2022 4:40 PM EST See HIRAL from [facility] * Telephone Encounter - Cayetano Tong - 11/08/2022 1:33 PM EST [facility] CALL Which [facility] office is calling? [facility] Full name of caller: Flora The caller is An Occupational Therapist Is the caller at the patients home?: NO Reason for call: Flora is calling to let us know that OT services ended yesterday. She tried to call yesterday, but couldn't get through to us. Does caller need an urgent call back? NO Was CONTACT Telephone # obtained above?: YES Fax #: documented in this encounter Plan of Treatment Not on file documented as of this encounter Visit Diagnoses Not on filedocumented in this encounter Care Teams News Videotape Editor Relationship Specialty Start Date End Date Buster Hyde [address] [place] [address] PCP - General Internal Medicine 03/20/22 Claire Linn MD [address] [place] [address] Specialist Cardiology 05/01/22 Renetta Morales DNP [address] [place] [address] Specialist Cardiology 05/01/22 documented as of this encounter
--- OUTSIDE RECORDS SUMMARY | 2025-09-12 12:33 | XMS_ITS | Encounter Summary ---
Author Organization [facility] Prior to 08/07/2024 Address [address] [place] [address] Care Team Providers Care Personal Caregiver Name Role Phone Buster Hyde Primary Care Provider [phone] Claire Linn MD Unavailable [phone] Renetta Morales DNP Unavailable [phone] Encounter Details Date Type Department Care Team Description 08/24/2022 Home Health Certification Medical Records [address] [place] [address] Re[address] Alejo [address] [address] Social History Tobacco Use Types Packs/Day Years [...] on filedocumented in this encounter Care Teams Personal Caregiver Relationship Specialty Start Date End Date Buster Hyde [address] [place], [place] [phone] PCP - General Internal Medicine 03/20/22 Claire Linn MD [address] [place] [address] Specialist Cardiology 05/01/22 Renetta Morales, RICHARD [address] [place] [address] Specialist Cardiology 05/01/22 documented as of this encounter
--- OUTSIDE RECORDS SUMMARY | 2025-09-12 12:33 | XMS_ITS | Encounter Summary ---
Author Organization [facility] Prior to 08/07/2024 Address [address] [place] [address] Care Team Providers Care Hollow Tile Partition Erector Name Role Phone Tricia Kaur MD Primary Care Provider Unava ilable Ana Moreno MD Primary Care Provider Unavailab Lucien Wilkins MD Primary Care Provider [phone] Buster Hyde Primary Care Provider [phone] Claire Linn MD Unavailable [phone] Renetta Morales DNP Unavailable [phone] Encounter Details Date Type Department Care Team Description 03/21/2018 Hospital Medical Records [address] [place] [address] Homar Gann Social History Tobacco Use Types Packs/Day Years [...] on filedocumented in this encounter Care Teams Hollow Tile Partition Erector Relationship Specialty Start Date End Date Tricia Kaur MD PCP - General 04/16/11 04/18/21 Ana Moreno MD PCP - General Internal Medicine 04/19/21 09/14/21 Lucien Le MD [address] [place] [address] PCP - General Internal Medicine 09/15/21 03/19/22 Buster Hyde [address] [place] [address] PCP - General Internal Medicine 03/20/22 Claire Linn MD [address] [place] [address] Specialist Cardiology 05/01/22 Renetta Morales DNP [address] [place] [address] Specialist Cardiology 05/01/22 documented as of this encounter
--- OUTSIDE RECORDS SUMMARY | 2025-09-12 12:33 | XMS_ITS | Encounter Summary ---
Author Organization [facility] Prior to 08/07/2024 Address [address] [place] [address] Care Team Providers Care Assistant Professor Of Philosophy Name Role Phone Buster Hyde Primary Care Provider [phone] Claire Linn MD Unavailable [phone] Renetta Morales DNP Unavailable [phone] Encounter Details Date Type Department Care Team Description 06/14/2022 Wafer Cutter Report Medical Records [address] [place] [address] [facility] Social History Tobacco Use Types Packs/Day Years [...] suspected to have Coronavirus/COVID-19? No / Unsure 05/23/2022 2:18 PM EDT documented as of this encounter Plan of Treatment Not on file documented as of this encounter Visit Diagnoses Not on filedocumented in this encounter Care Teams Assistant Professor Of Philosophy Relationship Specialty Start Date End Date Buster Hyde [address] [place] [address] PCP - General Internal Medicine 03/20/22 Claire Linn MD [address] [place] [address] Specialist Cardiology 05/01/22 Renetta Morales DNP [address] [place] [address] Specialist Cardiology 05/01/22 documented as of this encounter
--- OUTSIDE RECORDS SUMMARY | 2025-09-12 12:33 | XMS_ITS | Encounter Summary ---
Author Organization [facility] Prior to 08/07/2024 Address [address] [place] [address] Care Team Providers Care Weaving Teacher Name Role Phone Buster Hyde Primary Care Provider [phone] Claire Linn MD Unavailable [phone] Renetta Morales DNP Unavailable [phone] Encounter Details Date Type Department Care Team Description 10/11/2022 Social And Political Studies Professor Report Medical Records [address] [place] [address] Abstract, Provider Social History Tobacco Use Types [...] on filedocumented in this encounter Care Teams Weaving Teacher Relationship Specialty Start Date End Date Buster Hyde [address] [place] [address] PCP - General Internal Medicine 03/20/22 Claire Linn MD [address] [place] [address] Specialist Cardiology 05/01/22 Renetta Morales DNP [address] [place] [address] Specialist Cardiology 05/01/22 documented as of this encounter
--- OUTSIDE RECORDS SUMMARY | 2025-09-12 12:33 | XMS_ITS | Encounter Summary ---
Author Organization [facility] Prior to 08/07/2024 Address [address] [place] [address] Care Team Providers Care Civil Rights Representative Name Role Phone Tricia Kaur MD Primary Care Provider Unava ilable Yesika Rosen MD Primary Care Provider Unavailable Ana Moreno MD Primary Care Provider Unavailab Lucien Wilkins MD Primary Care Provider [phone] Buster Hyde Primary Care Provider [phone] Claire Linn MD Unavailable [phone] Renetta Morales DNP Unavailable [phone] Encounter Details Date Type Department Care Team Description 07/25/2010 Home Health Care Coordinator Report Medical Records [address] [place] [address] Artemio Box Social History Tobacco Use Types Packs/Day Years [...] on filedocumented in this encounter Care Teams Civil Rights Representative Relationship Specialty Start Date End Date Tricia Kaur MD PCP - General 04/16/11 04/18/21 Yesika Rosen MD PCP - General 03/07/0604/15 Ana Moreno MD PCP - General Internal Medicine 04/19/21 09/14/21 Lucien Le MD [address] [place] [address] PCP - General Internal Medicine 09/15/21 03/19/22 Buster Hyde [address] [place] [address] PCP - General Internal Medicine 03/20/22 Claire Linn MD [address] [place] [address] Specialist Cardiology 05/01/22 Renetta Morales DNP [address] [place] [address] Specialist Cardiology 05/01/22 documented as of this encounter
--- OUTSIDE RECORDS SUMMARY | 2025-09-12 12:33 | XMS_ITS | Data Portability ---
Author Organization [place] - Pending sale to [facility] Address [address] [place] [address] Care Team Providers Care Camp Dining Room Attendant Name Role Phone [facility] Primary Care Provide r Assessment Encounter Date Assessment Date Assessment LastModified by Organization Details LastModified Time 08/10/2022 08/10/2022 Ms Hernadez is a new patient to [facility] is leaking urine constantly , she does have incontinence that has been controlled with Myrbetriq, sts a few days ago she began to leak at times and yesterday, it seemed constant. No systemic symptoms. DDX includes but not limited to UTI most likely, her urine dip was positive for nitrites and leukocytes. Doubtful for pyelonephritis , no N/V/F/C no flank pain, no symtpoms of renal sone. [email or web address] Not available 08/10/2022 13:44:55 08/15/2022 08/15/2022 Time On Scene with Patient: 01:00:50 82 YO F patient established with , however new to provider. Patient complains of bilateral itchy red lower extremity. States she has had several surgeries to her left foot which includes bunionectomy in 2018. She is followed by [facility] legal support specialist as well as building certifier. Patient states since surgery she some numbness and tingling with limited ROM to toes. Swelling is at baseline however the red appearance seems to be worse than usual for the last several days/week? VSS Exam: Very pleasant, elderly female sitting in recliner conversing with staff and answering all questions appropriately. No acute distress, neurologically intact,EOMI, non injected. Respiration even and nonlabored, able to complete sentences, no use of accessory muscles. Heart RRR, BLE with venous stasis/discolorat ion from upper calf region to remainder of extremity/erythem atous. Temp wnl. L>R non pitting +1/2 edema. Skin: xerosis cutis, patient seen scratching throughout DH visit. DDx: fungal infection, atopic dermatitis, venous stasis, PVD, PAD, cellulitis, DVT Test:U/S Plan: -Less likely DVT and patient is currently on Eliquis, which I explained will not action of treatment if positive. Patient requesting u/s to rule out DVT. U/S ordered. -Appearance of venous stasis with dry skin upon assessment. Discussed elevating legs with rest as well as compression stockings with zippers/velcro for easy application and removal. Recommended lubricants for dry skin with no fragrance or dyes. Triamcinolone prescribed. -Recommended follow up with [facility] for revise of surgical procedure(bunione ctomy). The patient is advised to make an appt with PCP in 3-5 days to discuss ongoing symptoms/ further management. The patient is also advised to go to the ED immediately for any worsening symptoms. The patient understood and agreed with this plan. The patient was given discharge instructions and all questions were answered prior to team departure. [email or web address] Not available 08/20/2022 10:30:42 Plan of Treatment Reminders Order Date Submit Date Provider Last Modified By Organization Details Last Modified Time Details Appointments None recorded. Lab urinalysis, dipstick 2021 [facility], [address] [place] [address], [id number], 13:06:47 urinary tract pathogens panel, ROMAIN+probe, urine 2021 [facility], [address] [place], [address], 11:19:40 Referral None recorded. Procedures None recorded. Surgeries None recorded. Imaging US, duplex, venous, extremity, limited 2021 [facility] ([facility] [employer]), [address] [place] [address], [place], [address], 18:31:15 Medication Orders triamcinolo ne acetonide 0.1 % topical cream 2021 [id number], [address] [place], [address], 13:43:17 nitrofurant oin macrocrysta l 100 mg capsule 2021 [id number], [address] [place], [address], 13:20:29 Patient TargetsNo targets recorded. Patient Instructions Encounter Date Encounter Id Patient Instructions Last Modified By Organization Details Last Modified Time 08/15/2022 [id number] dry skin: care instructions [email or web address] [id number] Not available 08/15/2022 13:43:05 Thank you for yo ur visit with [employer] today. We cannot always find the exact cause of your symptoms during your initial visit. Please follow up with your primary care provider or specialist as needed to be rechecked or seek medical attention if your symptoms do not go away or get worse. If you develop any new or worsening symptoms and need after hours care, please go to nearest ER and/or call 911. If you have additional concerns or develop a change in your condition between 8am-10pm, please call [employer] at [phone] to help navigate your care. Thank you for your visit with [employer] today. We cannot always find the exact cause of your symptoms during your initial visit. Please follow up with your primary care provider or specialist within 2-3 days to be rechecked or seek medical attention if your symptoms do not go away or get worse. If you develop any new or worsening symptoms and need after hours care, please go to nearest ER and/or call 911. If you have additional concerns or develop a change in your condition between 8am-10pm, please call [employer] at [phone] to help navigate your care. Please seek care or call your primary provider if the rash: 1. Worsens 2. Lasts longer than one week 3. Shows signs of local infection (redness, oozing, or swelling) 4. Occurs together with fever, chills, swollen glands, or other symptoms of infection 5. Looks dark purple or spotted 6. Occurs together with symptoms that suggest autoimmune disorder (recurring fever, malaise, fatigue, unexplained weight loss, or joint swelling) If you have additional concerns or develop a change in your condition between 8am-10pm, please call [facility] at [phone] to help navigate your care. [email or web address] [id number] Not available 08/15/2022 13:33:18 Reason for Referral None Reported. Results Created Date Observation Date Name Description Value Unit Range Abnormal Flag Note LastModifiedBy Organization Detail LastModifiedTime 08/10/2008/10/2022 MONICO POOLE UTI- RECUR RENT, PERSI STENT , COMPL ICATE D UTI OBX: SPECI MEN TYPE test result: Urine, Clean Catch, Test Result : PATHOG ENIC DNA DETECT ED#A*F Not Available [facility] [address] [place] [address], [address], 08/14/2022 11:19:40 08/10/20 22 08/10/2022 urina lysis , dipst ick Appearance clear Not Available [facility] [address] [place], [address], 08/10/2022 13:03:57 08/10/20 22 08/10/2022 urina lysis , dipst ick Color yellow Not Available [facility] [address] [place], [address], 08/10/2022 13:03:57 08/10/20 22 08/10/2022 urina lysis , dipst ick Glucose (ref: neg Neg Not Available [facility] [address] [place], [address], 08/10/2022 13:03:57 08/10/20 22 08/10/2022 urina lysis , dipst ick Bilirubin (ref: neg) Neg Not Available [facility] [address] [place], [address], 08/10/2022 13:03:57 08/10/20 22 08/10/2022 urina lysis , dipst ick Ketones (ref: neg) Neg Not Available [facility] [address] [place], [address], 08/10/2022 13:03:57 08/10/20 22 08/10/2022 urina lysis , dipst ick Specific [place] (ref: 1.003 - 1.035) 1.010 Not Available [facility] [address] [place], [address], 08/10/2022 13:03:57 08/10/20 22 08/10/2022 urina lysis , dipst ick Blood (ref: neg) Neg Not Available [facility] [address] [place], [address], 08/10/2022 13:03:57 08/10/20 22 08/10/2022 urina lysis , dipst ick pH (ref: 5.0-7.0) 9.0 Not Available [facility] [address] [place], [address], 08/10/2022 13:03:57 08/10/20 22 08/10/2022 urina lysis , dipst ick Protein (ref: neg) Not Available [facility] [address] [place], [address], 08/10/2022 13:03:57 08/10/20 22 08/10/2022 urina lysis , dipst ick Urobilinogen (ref: 0.2-1.0) 0.2 Not Available [facility] [address] [place], [address], 08/10/2022 13:03:57 08/10/20 22 08/10/2022 urina lysis , dipst ick Nitrites (ref: neg) positi ve Not Available [facility] [address] [place], [address], 08/10/2022 13:03:57 08/10/20 22 08/10/2022 urina lysis , dipst ick Leukocytes (ref: neg) ++ Not Available [facility] [address], [place], [address], 08/10/2022 13:03:57 08/10/20 22 08/10/2022 urina lysis , dipst ick [facility], [address], [place] [address], [id number] Not Available [facility] [address], [place], [address], 08/10/2022 13:03:57 08/17/20 22 08/17/2022 venou s doppl er extre m/mesa VENOUS DOPPLE R EXTREM /MESA, LEFT FINDIN GS: Left lower extrem ity venous duplex ultras ound. CLINIC AL INDICA TION: Duplex imagin g of the left lower extrem ity venous circul ation was perfor med. There is normal flow and compre ssibil ity obtain ed from the left common femora l vein throug h the left poplit eal vein trifur cation in the calf. No thromb us is identi fied within the lumen of the vessel s. CONCLU JERRICA: No eviden ce of deep venous thromb osis in the left lower extrem ity. ELECTR ONICAL LY SIGNED BY IRASEMA Sanchez M.D. 2021 6:23:4 1 PM EST. VENOUS DOPPLE R EXTREM /MESA, LEFT Result s: Left lower extrem ity venous duplex ultras ound. CLINIC AL INDICA TION: Duplex imagin g of the left lower extrem ity venous circul ation was perfor med. There is normal flow and compre ssibil ity obtain ed from the left common femora l vein throug h the left poplit eal vein trifur cation in the calf. No thromb us is identi fied within the lumen of the vessel s. Conclu jerrica: No eviden ce of deep venous thromb osis in the left lower extrem ity. Electr onical ly signed by IRASEMA Sanchez M.D. 2021 6:23:4 1 PM EST. [email or web address] [facility] [address] [facility] [address], [place], [address], 08/18/2022 10:57:41 Result Notes None recorded. Medical Equipment None Reported. Allergies No known drug allergies Medications Name Sig Start Date Stop Date Status Note LastModified by Organization Details LastModified Time diclofenac 3% / baclofen 2% / gabapentin 6% / bupivacaine hcl 1% / ketamine 10% Apply 1-3 grams to the affected area 3-4 times daily (FEET) active Not Available Not Available No t Available atorvastati n 10 mg tablet TAKE 1 TABLET BY MOUTH DAILY 08/10 completed Not Available Not Available Not Available cefpodoxime 100 mg tablet TAKE 1 TABLET BY MOUTH TWICE A DAY FOR 5 DAYS 08/10 completed Not Available Not Available Not Available metronidazo le 500 mg tablet TAKE 1 TABLET BY MOUTH 3 TIMES A DAY FOR 5 DAYS 08/10 completed Not Available Not Available Not Available triamcinolo ne acetonide 0.1 % topical cream APPLY THIN COAT TO AFFECTED AREA TWICE A DAY active Not Available Not Available No t Available amoxicillin 500 mg tablet TAKE 4 TABLETS BY MOUTH 1 HOUR BEFORE APPOINTME NT active Not Available Not Available No t Available simvastatin 40 mg tablet Take 1 tablet every day by oral route. active Not Available Not Available No t Available cephalexin 500 mg capsule TAKE 1 CAPSULE BY MOUTH TWICE A DAY FOR 7 DAYS 08/10 completed Not Available Not Available Not Available nitrofurant oin macrocrysta l 100 mg capsule TAKE 1 CAPSULE BY MOUTH EVERY 12 HOURS DIRECTED FOR 7 DAYS active Not Available Not Available No t Available lisinopril 10 mg tablet TAKE 1 TABLET BY MOUTH DAILY 08/10 completed Not Available Not Available Not Available lisinopril 5 mg tablet TAKE 1 TABLET BY MOUTH EVERY DAY active Not Available Not Available No t Available gabapentin 100 mg capsule TAKE 1 CAPSULE BY MOUTH THREE TIMES A DAY active Not Available Not Available No t Available metoprolol succinate ER 25 mg tablet,exte nded release 24 hr TAKE 1 TABLET BY MOUTH EVERY DAY active Not Available Not Available No t Available cefuroxime axetil 500 mg tablet TAKE 1 TABLET BY MOUTH TWICE A DAY FOR 7 DAYS 08/10 completed Not Available Not Available Not Available Ferrocite 324 mg (106 mg iron) tablet TAKE 1 TABLET BY MOUTH EVERY DAY active Not Available Not Available No t Available hydrochloro thiazide 12.5 mg tablet TAKE 1 TABLET BY MOUTH DAILY active Not Available Not Available No t Available Myrbetriq 50 mg tablet,exte nded release TAKE 1 TABLET BY MOUTH EVERY DAY active Not Available Not Available No t Available Eliquis 5 mg tablet TAKE 1 TABLET BY MOUTH TWICE A DAY active Not Available Not Available No t Available metoprolol succinate ER 25 mg capsule sprinkle, ext. release 24 hr Take 1 capsule every day by oral route. active Not Available Not Available No t Available Paxlovid 300 mg (150 mg x 2)-100 mg tablets in a dose pack TAKE 3 TABLETS BY MOUTH TWICE A DAY FOR 5 DAYS DIRECTED ON PACKAGING 08/10 completed Not Available Not Available Not Available Vitals Date Recorded Oxygen saturation Respiratory rate Body temperature Heart rate Systolic And Diastolic Provider Name and Address Organization Details Last Updated DateTime 2 97 % 18 /min 99.8 [degF] 68 /min 146/72 mm[Hg] Not Available [facility] 12:53:52 Date Recorded Respiratory rate Body temperature Oxygen saturation Heart rate Systolic And Diastolic Provider Name and Address Organization Details Last Updated DateTime 2 18 /min 98.8 [degF] 97 % 74 /min 136/64 mm[Hg] Not Available [facility] 12:29:52 Social History Question Answer Notes LastModified by Organization D etails LastModified Time Does This Patient Have A PCP? Yes [email or web address] Information not available 08/10/2022 Has The Patient Seen Their PCP In The Past 6 Months? Yes [email or web address] Information not available 08/10/2022 Sex: Unknown Functional Status None recorded. Mental Status None recorded. Family History Nothing Reported. Medical History No medical history recorded. Gynecological HistoryNo gynecological history recorded. Obstetrics History GPAL:G 0 P 0 0 0 0 Past Encounters Encounter ID Performer Location Encounter Start Date Encounter Closed Date Diagnosis/Indication Diagnosis SNOMED-CT Code Diagnosis ICD10 Code Diagnosis IMO Codes Diagnosis Note [id number] SHARON Crook [facility] [address] [facility], [place] [address] 08/10/2022 12:11:02 08/11/2022 15:37:47 Urge incontinence of urine 71308446 N39.41 history of urinary incontinen ce, takes Myrbetriq 50 mg which is usually good for me , has recently (past couple days ) been leaking constantly which is what happened to her last time she had an infection. She is otherwise asymptomat ic. will rreat with Nitrofuroi ntin 100 mg BID x 7 days , Given education of worsening condition, she will call if any question. [id number] April [facility]INE [facility] [address] [place] [address] 08/15/2022 12:14:22 08/21/2022 15:49:36 Venous stasis edema of bilateral lower limbs [id number] 1868997 I87.2 Dry skin dermatitis 2600 64938 L85.3 Health Concerns Section Related Observation LastModified by Organization Detai ls LastModified Time None Recorded Concern Status LastModified by Organization Details LastModified Time None Recorded Advance Directives Directive None Recorded Payers Insurance Date Sequence Insurance Name Policy Number Policy Julio Covered Member ID Julio Member ID Guarantor Name 08/10/2022 1 *SELF PAY* Shonda Hernadez [id number] Shonda Toure. 08/14/2022 1 [place] Shonda A Kane [id number] Shonda Cerda 09/12/2022 2 [place]) [id number] Shonda Hernadez [id number] Shonda Toure. Notes Date Note Type Note Provider Name and Address Organization Details Recorded Time 08/10/2022 text/html Ms. Hernadez is new to , She has had urinary tract infections and as a result has had botox injection x 2 bladder not up to par after having 7 children She has not noted any blood in urine, however, has been having incontinence which is wht her sx were last time she had infection last time. No dysuria She wears depends and pads. Denies F/CN/V, no flank pain. No urgency. SHARON Crook [address], [place], [address], [place] [facility] 08/10/2022 13:49:12 08/15/2022 text/html General HPI Template - DHReported by Patient 82 YO F patient established with , however new to provider. Patient complains of bilateral itchy red lower extremity. States she has had several surgeries to her left foot which includes bunionectomy in 2018. She is followed by [facility] legal support specialist as well as building certifier. Patient states since surgery she some numbness and tingling with limited ROM to toes. Swelling is at baseline however the red appearance seems to be worse than usual for the last several days/week? April Ramos, LAINE [address], [place], [address], [place] [facility] 08/20/2022 10:30:52 OBGyn Episode No OBEpisode recorded.
--- OUTSIDE RECORDS SUMMARY | 2025-09-12 12:33 | XMS_ITS | Encounter Summary ---
Author Organization [facility] Prior to 08/07/2024 Address [address] [place] [address] Care Team Providers Care Fuel System Maintenance Worker Name Role Phone Buster Hyde Primary Care Provider [phone] Claire Linn MD Unavailable [phone] Renetta Morales DNP Unavailable [phone] Reason for Visit * Reason Onset Date Comments VNA Call 05/24/2022 Encounter Details Date Type Department Care Team Description 05/24/2022 Telephone Adult Medicine [address] [address] Buster Hyde [address] [place] [address] [id number] [facility]NA Call Social History Tobacco Use Types [...] encounter Miscellaneous Notes * Telephone Encounter - Buster Hyde - 05/24/2022 10:28 PM EDT Noted * Telephone Encounter - Eddy Chen L.P.N. - 05/24/2022 4:21 PM EDT See FYI from VNA * Telephone Encounter - Norah Bustamante - 05/24/2022 3:58 PM EDT VNA CALL Which VNA office is calling? [facility] Full name of caller: Adriana The caller is An Occupational Therapist Is the caller at the patients home?: NO Reason for call: FYI- saw patient for OT assessment plan is to see her once next week and twice a week for 2 weeks after that Does caller need an urgent call back? NO Was CONTACT Telephone # obtained above?: YES Fax #: documented in this encounter Plan of Treatment Not on file documented as of this encounter Visit Diagnoses Not on filedocumented in this encounter Care Teams Fuel System Maintenance Worker Relationship Specialty Start Date End Date Buster Hyde [address] [place] [address] PCP - General Internal Medicine 03/20/22 Claire Linn MD [address] [place] [address] Specialist Cardiology 05/01/22 Renetta Morales DNP [address] [place] [address] Specialist Cardiology 05/01/22 documented as of this encounter
--- OUTSIDE RECORDS SUMMARY | 2025-09-12 12:33 | XMS_ITS | Encounter Summary ---
Author Organization [employer] [facility] Prior to 08/07/2024 Address [address] [place] [address] Care Team Providers Care Testing Manager Name Role Phone Buster Hyde Primary Care Provider [phone] Claire Linn MD Unavailable [phone] Renetta Morales [facility] Unavailable [phone] Reason for Visit * Reason Onset Date Comments APPOINTMENT 05/01/2022 I called pt to s beryl a hosp f/u appt for her to see Renetta Morales Encounter Details Date Type Department Care Team Description 05/01/2022 Telephone Cardio PVC [address] [facility] [address] [place] [address] Claire Linn MD Medical [facility] [address] [place] [address] APPOINTMENT (I called pt to schedule a hosp f/u appt for her to see Renetta Morales) Social History Tobacco Use Types Packs/Day Years [...] encounter Miscellaneous Notes * Telephone Encounter - Prabha Pang - 05/01/2022 5:20 PM EDT I called Shonda and left her voicemail letting her know that we scheduled a hospital follow up appt for her to see Renetta Morales on Monday, May 23, 2022 at 1:40 PM. I also mailed an appt reminder. documented in this encounter Plan of Treatment Not on file documented as of this encounter Visit Diagnoses Not on filedocumented in this encounter Care Teams Testing Manager Relationship Specialty Start Date End Date Buster Hyde [address] [place] [address] PCP - General Internal Medicine 03/20/22 Claire Linn MD [address] [place] [address] Specialist Cardiology 05/01/22 Renetta Morales DNP [address] [place] [address] Specialist Cardiology 05/01/22 documented as of this encounter
--- OUTSIDE RECORDS SUMMARY | 2025-09-12 12:33 | XMS_ITS | Encounter Summary ---
Author Organization [facility] Prior to 08/07/2024 Address [address] [place] [address] Care Team Providers Care Nuclear Engineering Technician Name Role Phone Buster Hyde Primary Care Provider [phone] Claire Linn MD Unavailable [phone] Renetta Morales DNP Unavailable [phone] Encounter Details Date Type Department Care Team Description 09/12/2022 Escape Wheel Tooth Cutter Report Medical Records [address] [place], [place] [id number] [place] [id number] Social History Tobacco Use Types Packs/Day Years [...] on filedocumented in this encounter Care Teams Nuclear Engineering Technician Relationship Specialty Start Date End Date Buster Hyde [address] [place] [address] PCP - General Internal Medicine 03/20/22 Claire Linn MD [address] [place] [address] Specialist Cardiology 05/01/22 Renetta Morales, RICHARD [address] [place] [address] Specialist Cardiology 05/01/22 documented as of this encounter
--- OUTSIDE RECORDS SUMMARY | 2025-09-12 12:33 | XMS_ITS | Encounter Summary ---
Author Organization [facility] Prior to 08/07/2024 Address [address] [place] [address] Care Team Providers Care Internet Assessor Name Role Phone Tricia Kaur MD Primary Care Provider Unava Yesika Gan MD Primary Care Provider Unavailable Cooper Joaquin Primary Care Provider [phone] Ana Moreno MD Primary Care Provider Unavailab Lucien Wilkins MD Primary Care Provider [phone] Buster Hyde Primary Care Provider [phone] Claire Linn MD Unavailable [phone] Renetta Morales DNP Unavailable [phone] Encounter Details Date Type Department Care Team Description 03/01/2005 Orders Only Medical [address] [place], [place] [id number] Cooper Joaquin [address] [place] [address] [phone] LONG-TERM (CURRENT) USE OF OTHER MEDICATIONS (Primary Dx) Social History Tobacco Use Types Packs/Day Years Used Date Smoking Tobacco: Never Assessed Sex Assigned at Date Recorded Not on file Job Start Date Occupation Industry Not on file Not on file Not on file documented as of this encounter Plan of Treatment Scheduled Orders Name Type Priority Associated Diagnoses Orde r Schedule VENIPUNCTURE Lab Routine Long-Term (Current) Use Of Other Medications Ordered: 03/01/2005 documented as of this encounter Procedures Procedure Name Priority Date/Time Associated Diagnosis Comments CHG POTASSIUM SERUM PLASMA/WHOLE BLOOD Routine 03/01/2005 9:00 AM EDT Long-Term (Current) Use Of Other Medications documented in this encounter Results * POTASSIUM ASSAY (03/01/2005 9:00 AM EDT) Potassium 4.6 3.5 - 5.2 mEq/L [facility] [employer] 03/01/2005 9:00 AM EDT 03/01/2005 9:01 AM EDT Cooper Joaquin LAB [facility] [employer] documented in this encounter Visit Diagnoses Diagnosis Encounter for long-term (current) use of other medications- Primary documented in this encounter Care Teams Internet Assessor Relationship Specialty Start Date End Date Tricia Kaur MD PCP - General 04/16/11 04/18/21 [facility] PCP - General 03/07/0604/15 Cooper Joaquin [address] [place] [address] PCP - General 09/01/04 03/06/06 Ana Moreno MD [address] [place] [address] PCP - General Internal Medicine 04/19/21 09/14/21 Lucien Le MD [address] [place] [address] PCP - General Internal Medicine 09/15/21 03/19/22 Buster Hyde [address] [place] [address] PCP - General Internal Medicine 03/20/22 Claire Linn MD [address] [place] [address] Specialist Cardiology 05/01/22 Renetta Morales RICHARD [address] [place] [address] Specialist Cardiology 05/01/22 documented as of this encounter
--- OUTSIDE RECORDS SUMMARY | 2025-09-12 12:33 | XMS_ITS | Encounter Summary ---
Author Organization [facility] Prior to 08/07/2024 Address [address] [place] [address] Care Team Providers Care Digital Commentator Name Role Phone Tricia Kaur MD Primary Care Provider Unava ilable Ana Moreno MD Primary Care Provider Unavailab Lucien Wilkins MD Primary Care Provider [phone] Buster Hyde Primary Care Provider [phone] Claire Linn MD Unavailable [phone] Renetta Morales DNP Unavailable [phone] Encounter Details Date Type Department Care Team Description 10/02/2018 Hospital Medical Records [address] Social History Tobacco Use Types Packs/Day Years [...] on filedocumented in this encounter Care Teams Digital Commentator Relationship Specialty Start Date End Date Tricia Kaur MD PCP - General 04/16/11 04/18/21 Ana Moreno MD PCP - General Internal Medicine 04/19/21 09/14/21 Lucien Le MD [address] [place] [address] PCP - General Internal Medicine 09/15/21 03/19/22 Buster Hyde [address] [place] [address] PCP - General Internal Medicine 03/20/22 Claire Linn MD [address] [place] [address] Specialist Cardiology 05/01/22 Renetta Morales DNP [address] [place] [address] Specialist Cardiology 05/01/22 documented as of this encounter
--- OUTSIDE RECORDS SUMMARY | 2025-09-12 12:33 | XMS_ITS | Encounter Summary ---
Author Organization [facility] Prior to 08/07/2024 Address [address] [place] [address] Care Team Providers Care Frame Sample And Pattern Supervisor Name Role Phone Tricia Kaur MD Primary Care Provider Unava ilable Ana Moreno MD Primary Care Provider Unavailab Lucien Wilkins MD Primary Care Provider [phone] Buster Hyde Primary Care Provider [phone] Claire Linn MD Unavailable [phone] Renetta Morales DNP Unavailable [phone] Encounter Details Date Type Department Care Team Description 07/31/2018 Angle Shear Operator Report Medical Records [address] [place] [address] Aldo Morgan Social History Tobacco Use Types [...] on filedocumented in this encounter Care Teams Frame Sample And Pattern Supervisor Relationship Specialty Start Date End Date Tricia Kaur MD PCP - General 04/16/11 04/18/21 Ana Moreno MD PCP - General Internal Medicine 04/19/21 09/14/21 Lucien Le MD [address] [place] [address] PCP - General Internal Medicine 09/15/21 03/19/22 Buster Hyde [address] [place] [address] PCP - General Internal Medicine 03/20/22 Claire Linn MD [address] [place] [address] Specialist Cardiology 05/01/22 Renetta Morales DNP [address] [place] [address] Specialist Cardiology 05/01/22 documented as of this encounter
--- OUTSIDE RECORDS SUMMARY | 2025-09-12 12:33 | XMS_ITS | Encounter Summary ---
Author Organization [facility] Prior to 08/07/2024 Address [address] [place] [address] Care Team Providers Care Welt Butter Hand Name Role Phone Buster Hyde Primary Care Provider Claire Linn MD Unavailable [phone] Renetta Morales DNP Unavailable [phone] Reason for Visit * Reason Onset Date Comments Faxed Order 05/31/2022 Order #[id number] Encounter Details Date Type Department Care Team Description 05/31/2022 Telephone Adult Medicine [address] [address] Buster Hyde [address] [place] [address] [phone] Faxed Order ( Order #[id number]) Social History Tobacco Use Types Packs/Day Years [...] * Telephone Encounter - Angela Keita - 05/31/2022 11:10 AM EDT Faxed order from [facility],??Order #[id number]. Please sign, date, and fax back. documented in this encounter Plan of Treatment Not on file documented as of this encounter Visit Diagnoses Not on filedocumented in this encounter Care Teams Welt Butter Hand Relationship Specialty Start Date End Date Buster Hyde [address] [place] [address] PCP - General Internal Medicine 03/20/22 Claire Linn MD [address] [place] [address] Specialist Cardiology 05/01/22 Renetta Morales DNP [address] [place] [address] Specialist Cardiology 05/01/22 documented as of this encounter
--- OUTSIDE RECORDS SUMMARY | 2025-09-12 12:33 | XMS_ITS | Encounter Summary ---
Author Organization [facility] Prior to 08/07/2024 Address [address] [place] [address] Care Team Providers Care Poultry Veterinarian Name Role Phone Tricia Kaur MD Primary Care Provider Unava ilable Ana Moreno MD Primary Care Provider Unavailab Lucien Wilkins MD Primary Care Provider [phone] Buster Hyde Primary Care Provider [phone] Claire Linn MD Unavailable Renetta Morales DNP Unavailable [phone] Encounter Details Date Type Department Care Team Description 02/21/2017 Fish Icer Report Medical Records [address] [place] [address] Claudio Crane Social History Tobacco Use Types [...] on filedocumented in this encounter Care Teams Poultry Veterinarian Relationship Specialty Start Date End Date Tricia Kaur MD PCP - General 04/16/11 04/18/21 Ana Moreno MD PCP - General Internal Medicine 04/19/21 09/14/21 Lucien Le MD [address] [place] [address] PCP - General Internal Medicine 09/15/21 03/19/22 Buster Hyde [address] [place] [address] PCP - General Internal Medicine 03/20/22 Claire Linn MD [address] [place] [address] Specialist Cardiology 05/01/22 Renetta Morales DNP [address] [place] [address] Specialist Cardiology 05/01/22 documented as of this encounter
--- OUTSIDE RECORDS SUMMARY | 2025-09-12 12:33 | XMS_ITS | Encounter Summary ---
Author Organization [facility] Prior to 08/07/2024 Address [address] [place] [address] Care Team Providers Care Hair And Makeup Designer Name Role Phone Buster Hyde Primary Care Provider [phone] Claire Linn MD Unavailable [phone] Renetta Morales DNP Unavailable [phone] Reason for Visit * Reason Onset Date Comments VNA Call 05/01/2022 Encounter Details Date Type Department Care Team Description 05/01/2022 Telephone Adult Medicine [address] [address] Buster Hyde [address] [place] [address] [phone] VNA Call Social History Tobacco Use Types [...] Telephone Encounter - Eddy Chen L.P.N. - 05/02/2022 3:16 PM EDT Vo given * Telephone Encounter - Buster Hyde - 05/02/2022 2:51 PM EDT Please give verbal orders for OT * Telephone Encounter - Eddy Chen L.P.N. - 05/02/2022 2:31 PM EDT VNA requesting VO to add OT Please review and advise * Telephone Encounter - Cayetano Ricci - 05/01/2022 4:32 PM EDT VNA CALL Which [facility] office is calling? [facility] Full name of caller: Nirmal The caller is An Occupational Therapist Is the caller at the patients home?: NO Reason for call: Asking for ot 2 times a week for 4 weeks Does caller need an urgent call back? YES Was CONTACT Telephone # obtained above?: YES Fax #: documented in this encounter Plan of Treatment Not on file documented as of this encounter Visit Diagnoses Not on filedocumented in this encounter Care Teams Hair And Makeup Designer Relationship Specialty Start Date End Date Buster Hyde [address] [place] [address] PCP - General Internal Medicine 03/20/22 Claire Linn MD [address] [place] [address] Specialist Cardiology 05/01/22 Renetta Morales DNP [address] [place] [address] Specialist Cardiology 05/01/22 documented as of this encounter
--- OUTSIDE RECORDS SUMMARY | 2025-09-12 12:33 | XMS_ITS | Encounter Summary ---
Author Organization [facility] Prior to 08/07/2024 Address [address] [place] [address] Care Team Providers Care Ortho Rn Name Role Phone Buster Hyde Primary Care Provider [phone] Claire Linn MD Unavailable [phone] Renetta Morales DNP Unavailable [phone] Reason for Visit * Reason Onset Date Comments Faxed Order 10/18/2022 [email or web address] Encounter Details Date Type Department Care Team Description 10/18/2022 Telephone Adult Medicine [address] [address] Buster Hyde [address] [place] [address] [phone] Faxed Order ([facility]) Social History Tobacco Use Types Packs/Day Years [...] encounter Miscellaneous Notes * Telephone Encounter - Nery Beasley - 10/18/2022 9:14 AM EST Orders from [facility] to be signed and faxed back to [phone] . documented in this encounter Plan of Treatment Not on file documented as of this encounter Visit Diagnoses Not on filedocumented in this encounter Care Teams Ortho Rn Relationship Specialty Start Date End Date Buster Hyde [address] [place] [address] PCP - General Internal Medicine 03/20/22 Claire Linn MD [address] [place] [address] Specialist Cardiology 05/01/22 Renetta Morales DNP [address] [place] [address] Specialist Cardiology 05/01/22 documented as of this encounter
--- OUTSIDE RECORDS SUMMARY | 2025-09-12 12:33 | XMS_ITS | Encounter Summary ---
Author Organization [facility] Prior to 08/07/2024 Address [address] [place] [address] Care Team Providers Care Banquet Server On Call Name Role Phone Tricia Kaur MD Primary Care Provider Unava ilable Ana Moreno MD Primary Care Provider Unavailab Lucien Wilkins MD Primary Care Provider [phone] Buster Hyde Primary Care Provider [phone] Claire Linn MD Unavailable [phone] Renetta Morales DNP Unavailable [phone] Encounter Details Date Type Department Care Team Description 08/01/2016 Hospital Medical Records [address] [place] [address] Homar Gann Social History Tobacco Use Types [...] on filedocumented in this encounter Care Teams Banquet Server On Call Relationship Specialty Start Date End Date Tricia Kaur MD PCP - General 04/16/11 04/18/21 Ana Moreno MD PCP - General Internal Medicine 04/19/21 09/14/21 Lucien Le MD [address] [place] [address] PCP - General Internal Medicine 09/15/21 03/19/22 Buster Hyde [address] [place] [address] PCP - General Internal Medicine 03/20/22 Claire Linn MD [address] [place] [address] Specialist Cardiology 05/01/22 Renetta Morales DNP [address] [place] [address] Specialist Cardiology 05/01/22 documented as of this encounter
--- OUTSIDE RECORDS SUMMARY | 2025-09-12 12:33 | XMS_ITS | Encounter Summary ---
Author Organization [facility] Prior to 08/07/2024 Address [address] [place] [address] Care Team Providers Care Substance Abuse Specialist Name Role Phone Buster Hyde Primary Care Provider [phone] Claire Linn MD Unavailable [phone] Renetta Morales DNP Unavailable Encounter Details Date Type Department Care Team Description 04/28/2022 Hospital Medical Records [address] [place] [address] Social History Tobacco Use Types Packs/Day Years [...] Name Priority Date/Time Associated Diagnosis Comments OUTSIDE EKG Routine 04/25/[address] Routine 04/25/[address] Routine 04/25/2022 documented in this encounter Results * OUTSIDE CT (04/25/2022) Provider Abstract RADIOLOGY * OUTSIDE CT (04/25/2022) Provider Abstract RADIOLOGY * OUTSIDE EKG (04/25/2022) Provider Abstract CARDIOLOGY documented in this encounter Visit Diagnoses Not on filedocumented in this encounter Care Teams Substance Abuse Specialist Relationship Specialty Start Date End Date Buster Hyde [address] [place] [address] PCP - General Internal Medicine 03/20/22 Claire Linn MD [address] [place] [address] Specialist Cardiology 05/01/22 Renetta Morales DNP [address] [place] [address] Specialist Cardiology 05/01/22 documented as of this encounter
--- OUTSIDE RECORDS SUMMARY | 2025-09-12 12:33 | XMS_ITS | Encounter Summary ---
Author Organization [facility] Prior to 08/07/2024 Address [address] [place] [address] Care Team Providers Care Cna Caregiver Name Role Phone Tricia Kaur MD Primary Care Provider Unava ilable Yesika Rosen MD Primary Care Provider Unavailable Ana Moreno MD Primary Care Provider Unavailab Lucien Wilkins MD Primary Care Provider Buster Hyde Primary Care Provider [phone] Claire Linn MD Unavailable [phone] Renetta Morales [facility] Unavailable [phone] Encounter Details Date Type Department Care Team Description 06/20/2010 Supervisor Sandblaster Report Medical Records [address] [place] [address] Criss Brown MD Social History Tobacco Use Types Packs/Day [...] on filedocumented in this encounter Care Teams Cna Caregiver Relationship Specialty Start Date End Date Tricia Kaur MD PCP - General 04/16/11 04/18/21 Yesika Rosen MD PCP - General 03/07/0604/15 Ana Moreno MD PCP - General Internal Medicine 04/19/21 09/14/21 Lucien Le MD [address] [place] [address] PCP - General Internal Medicine 09/15/21 03/19/22 Buster Hyde [address] [place] [address] PCP - General Internal Medicine 03/20/22 Claire Linn MD [address] [place] [address] Specialist Cardiology 05/01/22 Renetta Morales DNP [address] [place] [address] Specialist Cardiology 05/01/22 documented as of this encounter
--- OUTSIDE RECORDS SUMMARY | 2025-09-12 12:33 | XMS_ITS | Encounter Summary ---
Author Organization [facility] Prior to 08/07/2024 Address [address] [place] [address] Care Team Providers Care Draw Off Worker Name Role Phone Lucien Le MD Primary Care Provider [phone] Buster Hyde Primary Care Provider [phone] Claire Linn MD Unavailable [phone] Renetta Morales DNP Unavailable [phone] Reason for Visit * Reason Onset Date Comments Faxed Order 12/06/2021 Order #[id number] Encounter Details Date Type Department Care Team Description 12/06/2021 Telephone Adult Medicine [address] [phone] Lucien Le MD [address] [place] [address] [phone] Faxed Order (Order #[id number]) Social History Tobacco Use Types Packs/Day Years [...] * Telephone Encounter - Angela Keita - 12/06/2021 12:13 PM EST Faxed order from [facility]. Order #[id number]. Please sign, date, and fax back. documented in this encounter Plan of Treatment Not on file documented as of this encounter Visit Diagnoses Not on filedocumented in this encounter Care Teams Draw Off Worker Relationship Specialty Start Date End Date Lucien Le MD [address] [place] [address] PCP - General Internal Medicine 09/15/21 03/19/22 Buster Hyde [address] [place] [address] PCP - General Internal Medicine 03/20/22 Claire Linn MD [address] [place] [address] Specialist Cardiology 05/01/22 Renetta Morales DNP [address] [place] [address] Specialist Cardiology 05/01/22 documented as of this encounter
--- OUTSIDE RECORDS SUMMARY | 2025-09-12 12:33 | XMS_ITS | Encounter Summary ---
Author Organization [facility] Prior to 08/07/2024 Address [address] [place] [address] Care Team Providers Care County Agent Name Role Phone Buster Hyde Primary Care Provider [phone] Claire Linn MD Unavailable [phone] Renetta Morales DNP Unavailable [phone] Encounter Details Date Type Department Care Team Description 04/28/2022 SCAN Medical Records [address] [place] [address] Abstract, Provider Social History Tobacco Use Types [...] Date/Time Associated Diagnosis Comments OUTSIDE LAB Routine 04/28/2022 documented in this encounter Results * OUTSIDE LAB (04/28/2022) Provider Abstract LAB documented in this encounter Visit Diagnoses Not on filedocumented in this encounter Care Teams County Agent Relationship Specialty Start Date End Date Buster Hyde [address] [place] [address] PCP - General Internal Medicine 03/20/22 Claire Linn MD [address] [place] [address] Specialist Cardiology 05/01/22 Renetta Morales DNP [address] [place] [address] Specialist Cardiology 05/01/22 documented as of this encounter
--- OUTSIDE RECORDS SUMMARY | 2025-09-12 12:33 | XMS_ITS | Encounter Summary ---
Author Organization [facility] Prior to 08/07/2024 Address [address] [place] [address] Care Team Providers Care Product Applications Engineer Name Role Phone Buster Hyde Primary Care Provider [phone] Claire Linn MD Unavailable [phone] Renetta Morales DNP Unavailable [phone] Encounter Details Date Type Department Care Team Description 04/29/2022 Home Health Certification Medical Records [address] [place] [address] [facility] [address] [place] [address] Social History Tobacco Use Types Packs/Day Years [...] filedocumented in this encounter Care Teams Product Applications Engineer Relationship Specialty Start Date End Date Buster Hyde [address] [place] [address] PCP - General Internal Medicine 03/20/22 Claire Linn MD [address] [place] [address] Specialist Cardiology 05/01/22 Renetta Morales DNP [address] [place] [address] Specialist Cardiology 05/01/22 documented as of this encounter
--- OUTSIDE RECORDS SUMMARY | 2025-09-12 12:33 | XMS_ITS | Encounter Summary ---
Author Organization [facility] Prior to 08/07/2024 Address [address] [place] [address] Care Team Providers Care Food Service Ambassador Name Role Phone Tricia Kaur MD Primary Care Provider Unava ilable Yesika Rosen MD Primary Care Provider Unavailable Ana Moreno MD Primary Care Provider Unavailab Lucien Wilkins MD Primary Care Provider [phone] Buster Hyde Primary Care Provider [phone] Claire Linn MD Unavailable [phone] Renetta Morales DNP Unavailable [phone] Encounter Details Date Type Department Care Team Description 05/15/2010 Color Strainer Report Medical Records [address] [place] [address] Mattie Bernstein Social History Tobacco Use Types [...] on filedocumented in this encounter Care Teams Food Service Ambassador Relationship Specialty Start Date End Date Tricia Kaur MD PCP - General 04/16/11 04/18/21 Yesika Rosen MD PCP - General 03/07/0604/15 Ana Moreno MD PCP - General Internal Medicine 04/19/21 09/14/21 Lucien Le MD [address] [place] [address] PCP - General Internal Medicine 09/15/21 03/19/22 Buster Hyde [address] [place] [address] PCP - General Internal Medicine 03/20/22 Claire Linn MD [address] [place] [address] Specialist Cardiology 05/01/22 Renetta Morales DNP [address] [place] [address] Specialist Cardiology 05/01/22 documented as of this encounter
--- OUTSIDE RECORDS SUMMARY | 2025-09-12 12:33 | XMS_ITS | Encounter Summary ---
Author Organization [facility] Prior to 08/07/2024 Address [address] [place] [address] Care Team Providers Care Repair Coil Winder Name Role Phone Tricia Kaur MD Primary Care Provider Unava ilable Ana Moreno MD Primary Care Provider Unavailab Lucien Wilkins MD Primary Care Provider [phone] Buster Hyde Primary Care Provider [phone] Claire Linn MD Unavailable [phone] Renetta Morales DNP Unavailable [phone] Encounter Details Date Type Department Care Team Description 06/27/2018 Business Doc Medical Records [address] [place] [address] Abstract, Provider Social History Tobacco Use Types [...] on filedocumented in this encounter Care Teams Repair Coil Winder Relationship Specialty Start Date End Date Tricia Kaur MD PCP - General 04/16/11 04/18/21 Ana Moreno MD PCP - General Internal Medicine 04/19/21 09/14/21 Lucien Le MD [address] [place] [address] PCP - General Internal Medicine 09/15/21 03/19/22 Buster Hyde [address] [place] [address] PCP - General Internal Medicine 03/20/22 Claire Linn MD [address] [place] [address] Specialist Cardiology 05/01/22 Renetta Morales DNP [address] [place] [address] Specialist Cardiology 05/01/22 documented as of this encounter
--- OUTSIDE RECORDS SUMMARY | 2025-09-12 12:33 | XMS_ITS | Encounter Summary ---
Author Organization [facility] Prior to 08/07/2024 Address [address] [place] [address] Care Team Providers Care Area Director Name Role Phone Buster Hyde Primary Care Provider Claire Linn MD Unavailable [phone] Renetta Morales DNP Unavailable [phone] Encounter Details Date Type Department Care Team Description 12/03/2022 Telephone Adult Medicine [address] [phone] Buster Hyde [address] [place] [address] [phone] Social History Tobacco Use Types Packs/Day Years [...] on filedocumented in this encounter Care Teams Area Director Relationship Specialty Start Date End Date Buster Hyde [address] [place] [address] [phone] PCP - General Internal Medicine 03/20/22 Claire Linn MD [address] [place] [address] Specialist Cardiology 05/01/22 Renetta Morales DNP [address] [place] [address] Specialist Cardiology 05/01/22 documented as of this encounter
--- OUTSIDE RECORDS SUMMARY | 2025-09-12 12:33 | XMS_ITS | Encounter Summary ---
Author Organization [facility] Prior to 08/07/2024 Address [address] [place] [address] Care Team Providers Care Bread Dough Mixer Name Role Phone Buster Hyde Primary Care Provider [phone] Claire Linn MD Unavailable [phone] Renetta Morales DNP Unavailable [phone] Reason for Visit * Reason Onset Date Comments Faxed Order 05/14/2022 Encounter Details Date Type Department Care Team Description 05/14/2022 Telephone Adult Medicine [address] [address] Buster Hyde [address] [place] [address] [phone] Faxed Order Social History Tobacco Use Types [...] * Telephone Encounter - Nery Beasley - 05/14/2022 2:39 PM EDT Order Number: [id number] Orders from [facility] to be signed and faxed back to [phone] . documented in this encounter Plan of Treatment Not on file documented as of this encounter Visit Diagnoses Not on filedocumented in this encounter Care Teams Bread Dough Mixer Relationship Specialty Start Date End Date Buster Hyde [address] [place] [address] PCP - General Internal Medicine 03/20/22 Claire Linn MD [address] [place] [address] Specialist Cardiology 05/01/22 Renetta Morales DNP [address] [place] [address] Specialist Cardiology 05/01/22 documented as of this encounter
--- OUTSIDE RECORDS SUMMARY | 2025-09-12 12:34 | XMS_ITS | Encounter Summary ---
Author Organization [facility] Prior to 08/07/2024 Address [address] [place] [address] Care Team Providers Care Software Requirements Engineer Name Role Phone Tricia Kaur MD Primary Care Provider Unava ilable Ana Moreno MD Primary Care Provider Unavailab Lucien Wilkins MD Primary Care Provider [phone] Buster Hyde Primary Care Provider [phone] Claire Linn MD Unavailable [phone] Renetta Morales DNP Unavailable [phone] Encounter Details Date Type Department Care Team Description 08/04/2019 Hospital Medical Records [address] [place] [address] Lacey Russell PA-C Social History Tobacco Use Types Packs/Day Years [...] filedocumented in this encounter Care Teams Software Requirements Engineer Relationship Specialty Start Date End Date Tricia Kaur MD PCP - General 04/16/11 04/18/21 Ana Moreno MD PCP - General Internal Medicine 04/19/21 09/14/21 Lucien Le MD [address] [place] [address] PCP - General Internal Medicine 09/15/21 03/19/22 Buster Hyde [address] [place] [address] PCP - General Internal Medicine 03/20/22 Claire Linn MD [address] [place] [address] Specialist Cardiology 05/01/22 Renetta Morales DNP [address] [place] [address] [phone] Specialist Cardiology 05/01/22 documented as of this encounter
--- OUTSIDE RECORDS SUMMARY | 2025-09-12 12:34 | XMS_ITS | Encounter Summary ---
Author Organization [facility] Prior to 08/07/2024 Address [address] [place] [address] Care Team Providers Care Wood Block Artist Name Role Phone Buster Hyde Primary Care Provider [phone] Claire Linn MD Unavailable [phone] Renetta Morales DNP Unavailable [phone] Encounter Details Date Type Department Care Team Description 02/28/2023 Home Health Certification Medical Records [address] [place] [address] Social History Tobacco Use Types Packs/Day Years [...] on filedocumented in this encounter Care Teams Wood Block Artist Relationship Specialty Start Date End Date Buster Hyde [address] [place] [address] PCP - General Internal Medicine 03/20/22 Claire Linn MD [address] [place] [address] Specialist Cardiology 05/01/22 Renetta Morales, RICHARD [address] [place] [address] Specialist Cardiology 05/01/22 documented as of this encounter
--- OUTSIDE RECORDS SUMMARY | 2025-09-12 12:34 | XMS_ITS | Encounter Summary ---
Author Organization [facility] Prior to 08/07/2024 Address [address] [place] [address] Care Team Providers Care Urology Nurse Name Role Phone Buster Hyde Primary Care Provider [phone] Claire Linn MD Unavailable [phone] Renetta Morales DNP Unavailable [phone] Encounter Details Date Type Department Care Team Description 04/15/2023 Engine Assembler Report Medical Records [address] [place] [address] Social History Tobacco Use Types Packs/Day Years [...] on filedocumented in this encounter Care Teams Urology Nurse Relationship Specialty Start Date End Date Buster Hyde [address] [place] [address] PCP - General Internal Medicine 03/20/22 Claire Linn MD [address] [place] [address] Specialist Cardiology 05/01/22 Renetta Morales, RICHARD [address] [place] [address] Specialist Cardiology 05/01/22 documented as of this encounter
--- OUTSIDE RECORDS SUMMARY | 2025-09-12 12:34 | XMS_ITS | Encounter Summary ---
Author Organization [facility] Prior to 08/07/2024 Address [address] [place] [address] Care Team Providers Care Project Intern Name Role Phone Buster Hyde Primary Care Provider [phone] Claire Linn MD Unavailable [phone] Renetta Morales DNP Unavailable [phone] Encounter Details Date Type Department Care Team Description 02/11/2023 Telephone Adult Medicine [address] [address] Buster Hyde [address] [place] [address] [phone] Social History Tobacco Use Types Packs/Day Years [...] Telephone Encounter - Margaret Hickey M.A. - 02/12/2023 2:36 PM EDT Pt has appointment on 02/20/23. * Telephone Encounter - Keagan Carlson M.A. - 02/11/2023 9:29 AM EDT Left message for patient to return call. documented in this encounter Plan of Treatment Not on file documented as of this encounter Visit Diagnoses Not on filedocumented in this encounter Care Teams Project Intern Relationship Specialty Start Date End Date Buster Hyde [address] [place] [address] PCP - General Internal Medicine 03/20/22 Claire Linn MD [address] [place] [address] Specialist Cardiology 05/01/22 Renetta Morales DNP [address] [place] [address] Specialist Cardiology 05/01/22 documented as of this encounter
--- OUTSIDE RECORDS SUMMARY | 2025-09-12 12:34 | XMS_ITS | Encounter Summary ---
Author Organization [facility] Prior to 08/07/2024 Address [address] [place] [address] Care Team Providers Care Poultry Vaccinator Name Role Phone Tricia Kaur MD Primary Care Provider Unava ilable Ana Moreno MD Primary Care Provider Unavailab Lucien Wilkins MD Primary Care Provider [phone] Buster Hyde Primary Care Provider [phone] Claire Linn MD Unavailable [phone] Renetta Morales DNP Unavailable [phone] Encounter Details Date Type Department Care Team Description 12/01/2018 Drawbench Operator Report Medical Records [address] [place] [address] Abstract, Provider Social History Tobacco Use Types [...] filedocumented in this encounter Care Teams Poultry Vaccinator Relationship Specialty Start Date End Date Tricia Kaur MD PCP - General 04/16/11 04/18/21 Ana Moreno MD PCP - General Internal Medicine 04/19/21 09/14/21 Lucien Le MD [address] [place] [address] PCP - General Internal Medicine 09/15/21 03/19/22 Buster Hyde [address] [place] [address] PCP - General Internal Medicine 03/20/22 Claire Linn MD [address] [place] [address] Specialist Cardiology 05/01/22 Renetta Morales DNP [address] [place] [address] Specialist Cardiology 05/01/22 documented as of this encounter
--- OUTSIDE RECORDS SUMMARY | 2025-09-12 12:34 | XMS_ITS | Encounter Summary ---
Author Organization [facility] Prior to 08/07/2024 Address [address] [place] [address] Care Team Providers Care Organizational Research Consultant Name Role Phone Buster Hyde Primary Care Provider [phone] Claire Linn MD Unavailable [phone] Renetta Morales DNP Unavailable [phone] Reason for Visit * Reason Onset Date Comments VNA Call 12/31/2022 Encounter Details Date Type Department Care Team Description 12/31/2022 Telephone Triage [address] [place], [place] [phone] Buster Hyde [address] [place], [place] [phone] VNA Call Social History Tobacco Use Types [...] suspected to have Coronavirus/COVID-19? No / Unsure 12/21/2022 8:44 AM EDT documented as of this encounter Miscellaneous Notes * Telephone Encounter - Eddy Chen L.P.N. - 12/31/2022 9:58 AM EDT See FYI below from [facility]NA * Telephone Encounter - Elizabeth Manley - 12/31/2022 9:09 AM EDT VNA CALL Which [facility]NA office is calling? [facility] Full name of caller: Lucy The caller is A nurse Is the caller at the patients home?: NO Reason for call: Lucy states she went to see patient this morning and was told she went to ER. States patient was having weakness and inability to transfer and went to [facility]. States family is hoping she goes to rehab from there. Does caller need an urgent call back? NO Was CONTACT Telephone # obtained above?: YES Fax #: n/a documented in this encounter Plan of Treatment Not on file documented as of this encounter Visit Diagnoses Not on filedocumented in this encounter Care Teams Organizational Research Consultant Relationship Specialty Start Date End Date Buster Hyde [address] [place] [address] PCP - General Internal Medicine 03/20/22 Claire Linn MD [address] [place] [address] Specialist Cardiology 05/01/22 Renetta Morales DNP [address] [place] [address] Specialist Cardiology 05/01/22 documented as of this encounter
--- OUTSIDE RECORDS SUMMARY | 2025-09-12 12:34 | XMS_ITS | Encounter Summary ---
Author Organization [facility] Prior to 08/07/2024 Address [address] [place] [address] Care Team Providers Care Carbon Furnace Operator Helper Name Role Phone Tricia Kaur MD Primary Care Provider Unava ilable Ana Moreno MD Primary Care Provider Unavailab Lucien Wilkins MD Primary Care Provider [phone] Buster Hyde Primary Care Provider Claire Linn MD Unavailable [phone] Renetta Morales DNP Unavailable [phone] Encounter Details Date Type Department Care Team Description 12/28/2018 Hospital Medical Records [address] [place] [address] Manny Gutierrez Social History Tobacco Use Types Packs/Day Years [...] on filedocumented in this encounter Care Teams Carbon Furnace Operator Helper Relationship Specialty Start Date End Date Tricia Kaur MD PCP - General 04/16/11 04/18/21 Ana Moreno MD PCP - General Internal Medicine 04/19/21 09/14/21 Lucien Le MD [address] [place] [address] PCP - General Internal Medicine 09/15/21 03/19/22 Buster Hyde [address] [place] [address] PCP - General Internal Medicine 03/20/22 Claire Linn MD [address] [place] [address] Specialist Cardiology 05/01/22 Renetta Morales DNP [address] [place] [address] Specialist Cardiology 05/01/22 documented as of this encounter
--- OUTSIDE RECORDS SUMMARY | 2025-09-12 12:34 | XMS_ITS | Encounter Summary ---
Author Organization [facility] Prior to 08/07/2024 Address [address] [place] [address] Care Team Providers Care Surveyor Rod Helper Name Role Phone Tricia Kaur MD Primary Care Provider Unava ilable Ana Moreno MD Primary Care Provider Unavailab Lucien Wilkins MD Primary Care Provider [phone] Buster Hyde Primary Care Provider [phone] Claire Linn MD Unavailable [phone] Renetta Morales DNP Unavailable [phone] Encounter Details Date Type Department Care Team Description 01/28/2019 Business Ethics Professor Report Medical Records [address] [place] [address] Social History Tobacco Use Types Packs/Day Years [...] on filedocumented in this encounter Care Teams Surveyor Rod Helper Relationship Specialty Start Date End Date Tricia Kaur MD PCP - General 04/16/11 04/18/21 Ana Moreno MD PCP - General Internal Medicine 04/19/21 09/14/21 Lucien Le MD [address] [place] [address] PCP - General Internal Medicine 09/15/21 03/19/22 Buster Hyde [address] [place] [address] PCP - General Internal Medicine 03/20/22 Claire Linn MD [address] [place] [address] Specialist Cardiology 05/01/22 Renetta Morales DNP [address] [place] [address] Specialist Cardiology 05/01/22 documented as of this encounter
--- OUTSIDE RECORDS SUMMARY | 2025-09-12 12:34 | XMS_ITS | Encounter Summary ---
Author Organization [facility] Prior to 08/07/2024 Address [address] [place] [address] Care Team Providers Care Grip Wrapper Name Role Phone Tricia Kaur MD Primary Care Provider Unava ilable Ana Moreno MD Primary Care Provider Unavailab Lucien Wilkins MD Primary Care Provider [phone] Buster Hyde Primary Care Provider [phone] Claire Linn MD Unavailable [phone] Renetta Morales DNP Unavailable [phone] Encounter Details Date Type Department Care Team Description 07/24/2019 Hospital Medical Records [address] [place] [address] Paco Maria MD Social History Tobacco Use Types Packs/Day [...] on filedocumented in this encounter Care Teams Grip Wrapper Relationship Specialty Start Date End Date Tricia Kaur MD PCP - General 04/16/11 04/18/21 Ana Moreno MD PCP - General Internal Medicine 04/19/21 09/14/21 Lucien Le MD [address] [place] [address] PCP - General Internal Medicine 09/15/21 03/19/22 Buster Hyde [address] [place] [address] PCP - General Internal Medicine 03/20/22 Claire Linn MD [address] [place] [address] Specialist Cardiology 05/01/22 Renetta Morales DNP [address] [place] [address] Specialist Cardiology 05/01/22 documented as of this encounter
--- OUTSIDE RECORDS SUMMARY | 2025-09-12 12:34 | XMS_ITS | Encounter Summary ---
Author Organization [facility] Prior to 08/07/2024 Address [address] [place] [address] Care Team Providers Care Cooker Meal Name Role Phone Buster Hyde Primary Care Provider [phone] Claire Linn MD Unavailable [phone] Renetta Morales DNP Unavailable [phone] Encounter Details Date Type Department Care Team Description 12/22/2022 Orders Only Adult Medicine [address] [address] Buster Hyde [address] [place] [address] [phone] Social History Tobacco Use Types Packs/Day Years [...] on filedocumented in this encounter Care Teams Cooker Meal Relationship Specialty Start Date End Date Buster Hyde [address] [place] [address] PCP - General Internal Medicine 03/20/22 Claire Linn MD [address] [place] [address] Specialist Cardiology 05/01/22 Renetta Morales DNP [address] [place] [address] Specialist Cardiology 05/01/22 documented as of this encounter
--- OUTSIDE RECORDS SUMMARY | 2025-09-12 12:34 | XMS_ITS | Encounter Summary ---
Author Organization [facility] Prior to 08/07/2024 Address [address] [place] [address] Care Team Providers Care Ski Maker Name Role Phone Buster Hyde Primary Care Provider [phone] Claire Linn MD Unavailable [phone] Renetta Morales DNP Unavailable [phone] Reason for Visit * Reason Onset Date Comments VNA Call 06/25/2022 Encounter Details Date Type Department Care Team Description 06/25/2022 Telephone Adult Medicine [address] [address] Buster Hyde [address] [place] [address] [phone] VNA Call Social History Tobacco Use Types [...] Telephone Encounter - Eddy Chen L.P.N. - 06/26/2022 10:56 AM EDT Spoke with VNA nurse VO given She will tell patient to bring all her meds to her appointment * Telephone Encounter - Buster Hyde - 06/26/2022 10:51 AM EDT Please give verbal orders for PT and nursing Please tell the patient to bring all her medication/current medication list * Telephone Encounter - Eddy April L.P.N. - 06/25/2022 4:18 PM EDT VNA needs VO nursing and pt She has a hospital follow up on 06/[address] Hyde She is missing her iron tab [address] [employer] Told the nurse Dr Peterson will go over her med list at the appointment Please review and advise * Telephone Encounter - Funmi Barth - 06/25/2022 3:20 PM EDT VNA CALL Which VNA office is calling? Re[facility] LAUGHLIN Full name of caller: Mouna - [phone] The caller is A nurse Is the caller at the patients home?: NO Reason for call: Caller states they are starting home health services again with the patient and patient has some missing medications please call Does caller need an urgent call back? YES Was CONTACT Telephone # obtained above?: YES Fax #: documented in this encounter Plan of Treatment Not on file documented as of this encounter Visit Diagnoses Not on filedocumented in this encounter Care Teams Ski Maker Relationship Specialty Start Date End Date Buster Hyde [address] [place] [address] PCP - General Internal Medicine 03/20/22 Claire Linn MD [address] [place] [address] Specialist Cardiology 05/01/22 Renetta Morales DNP [address] [place] [address] Specialist Cardiology 05/01/22 documented as of this encounter
--- OUTSIDE RECORDS SUMMARY | 2025-09-12 12:34 | XMS_ITS | Encounter Summary ---
Author Organization [facility] Prior to 08/07/2024 Address [address] [place] [address] Care Team Providers Care Facialist Name Role Phone Tricia Kaur MD Primary Care Provider Unava ilAna Augustine MD Primary Care Provider Unavailab Lucien Wilkins MD Primary Care Provider [phone] Bsuter Hyde Primary Care Provider Claire Linn MD Unavailable [phone] Renetta Morales DNP Unavailable [phone] Encounter Details Date Type Department Care Team Description 03/10/2019 Orders Only Medical Records [address] [place] [address] Mg Montiel MD Social History Tobacco Use Types Packs/Day [...] Associated Diagnosis Comments OUTSIDE VASCULAR STUDY Routine 03/04/2019 documented in this encounter Results * OUTSIDE VASCULAR STUDY (03/04/2019) Mg Montiel MD CARDIOLOGY documented in this encounter Visit Diagnoses Not on filedocumented in this encounter Care Teams Facialist Relationship Specialty Start Date End Date Tricia Kaur MD PCP - General 04/16/11 04/18/21 Ana Moreno MD PCP - General Internal Medicine 04/19/21 09/14/21 Lucien Le MD [address] [place] [address] PCP - General Internal Medicine 09/15/21 03/19/22 Buster Hyde [address] [place] [address] PCP - General Internal Medicine 03/20/22 Claire Linn MD [address] [place] [address] Specialist Cardiology 05/01/22 Renetta Morales DNP [address] [place] [address] Specialist Cardiology 05/01/22 documented as of this encounter
--- OUTSIDE RECORDS SUMMARY | 2025-09-12 12:34 | XMS_ITS | Encounter Summary ---
Author Organization [facility] Prior to 08/07/2024 Address [address] [place] [address] Care Team Providers Care Information Systems Planner Name Role Phone Tricia Kaur MD Primary Care Provider Unava ilable Ana Moreno MD Primary Care Provider Unavailab Lucien Wilkins MD Primary Care Provider [phone] Buster Hyde Primary Care Provider [phone] Claire Linn MD Unavailable [phone] Renetta Morales DNP Unavailable Encounter Details Date Type Department Care Team Description 01/08/2019 Home Health Certification Medical Records [address] [place] [address] Social History Tobacco Use Types Packs/Day Years [...] on filedocumented in this encounter Care Teams Information Systems Planner Relationship Specialty Start Date End Date Tricia Kaur MD PCP - General 04/16/11 04/18/21 Ana Moreno MD PCP - General Internal Medicine 04/19/21 09/14/21 Lucien Le MD [address] [place] [address] PCP - General Internal Medicine 09/15/21 03/19/22 Buster Hyde [address] [place] [address] PCP - General Internal Medicine 03/20/22 Claire Linn MD [address] [place] [address] Specialist Cardiology 05/01/22 Renetta Morales DNP [address] [place] [address] Specialist Cardiology 05/01/22 documented as of this encounter
--- OUTSIDE RECORDS SUMMARY | 2025-09-12 12:34 | XMS_ITS | Encounter Summary ---
Author Organization [facility] Prior to 08/07/2024 Address [address] [place] [address] Care Team Providers Care Assistant Oceanographer Name Role Phone Tricia Kaur MD Primary Care Provider Unava ilable Ana Moreno MD Primary Care Provider Unavailab Lucien Wilkins MD Primary Care Provider [phone] Buster Hyde Primary Care Provider [phone] Claire Linn MD Unavailable [phone] Renetta Morales DNP Unavailable [phone] Encounter Details Date Type Department Care Team Description 08/05/2019 Hospital Medical Records [address] [place] [address] Lacey Russell PA-C Social History Tobacco Use [...] filedocumented in this encounter Care Teams Assistant Oceanographer Relationship Specialty Start Date End Date Tricia Kaur MD PCP - General 04/16/11 04/18/21 Ana Moreno MD PCP - General Internal Medicine 04/19/21 09/14/21 Lucien Le MD [address] [place] [address] PCP - General Internal Medicine 09/15/21 03/19/22 Buster Hyde [address] [place] [address] PCP - General Internal Medicine 03/20/22 Claire Linn MD [address] [place] [address] Specialist Cardiology 05/01/22 Renetta Morales DNP [address] [place] [address] [phone] Specialist Cardiology 05/01/22 documented as of this encounter
--- OUTSIDE RECORDS SUMMARY | 2025-09-12 12:34 | XMS_ITS | Encounter Summary ---
Author Organization [facility] Prior to 08/07/2024 Address [address] [place] [address] Care Team Providers Care Lab Technician Name Role Phone Buster Hyde Primary Care Provider [phone] Claire Linn MD Unavailable [phone] Renetta Morales DNP Unavailable [phone] Reason for Visit * Reason Onset Date Comments er follow up 01/18/2023 Encounter Details Date Type Department Care Team Description 01/18/2023 Telephone Adult Medicine [address] [address] Buster Hyde [address] [place] [address] [phone] er follow up Social History Tobacco Use Types Packs/Day Years [...] Miscellaneous Notes * Telephone Encounter - Magda Cranedonado - 01/18/2023 4:02 PM EDT Called Darcy and left vm to return my call. * Telephone Encounter - Lizeth Dejesus - 01/18/2023 3:08 PM EDT Hospital follow up appointment needed Hospital patient was treated at: [facility] Was this only an ER visit or was the patient admitted to the hospital? Admitted to hospital Date of visit if ER visit only: N/A If patient was admitted what was the date of discharge? 01/01/2023 Reason/diagnosis for visit or stay: fall When was the patient told to follow up? Was visit or stay related to an injury? YES If yes, what was the date of injury (DOI)? N/A If yes, was the injury due to N/A documented in this encounter Plan of Treatment Not on file documented as of this encounter Visit Diagnoses Not on filedocumented in this encounter Care Teams Lab Technician Relationship Specialty Start Date End Date Buster Hyde [address] [place] [address] PCP - General Internal Medicine 03/20/22 Claire Linn MD [address] [place] [address] Specialist Cardiology 05/01/22 Renetta Morales DNP [address] [place] [address] Specialist Cardiology 05/01/22 documented as of this encounter
--- OUTSIDE RECORDS SUMMARY | 2025-09-12 12:34 | XMS_ITS | Encounter Summary ---
Author Organization [facility] Prior to 08/07/2024 Address [address] [place] [address] Care Team Providers Care Sprayer Automatic Spray Machine Name Role Phone Tricia Kaur MD Primary Care Provider Unava ilable Ana Moreno MD Primary Care Provider Unavailab Lucien Wilkins MD Primary Care Provider [phone] Buster Hyde Primary Care Provider [phone] Claire Linn MD Unavailable [phone] Renetta Morales DNP Unavailable [phone] Encounter Details Date Type Department Care Team Description 07/31/2019 Old Medical Records Medical Records [address] [place] [address] Abstract, Provider Social History Tobacco Use Types [...] on filedocumented in this encounter Care Teams Sprayer Automatic Spray Machine Relationship Specialty Start Date End Date Tricia Kaur MD PCP - General 04/16/11 04/18/21 Ana Moreno MD PCP - General Internal Medicine 04/19/21 09/14/21 Lucien Le MD [address] [place] [address] PCP - General Internal Medicine 09/15/21 03/19/22 Buster Hyde [address] [place] [address] PCP - General Internal Medicine 03/20/22 Claire Linn MD [address] [place] [address] Specialist Cardiology 05/01/22 Renetta Morales DNP [address] [place] [address] Specialist Cardiology 05/01/22 documented as of this encounter
--- OUTSIDE RECORDS SUMMARY | 2025-09-12 12:34 | XMS_ITS | Encounter Summary ---
Author Organization [facility] Prior to 08/07/2024 Address [address] [place] [address] Care Team Providers Care School Lunch Monitor Name Role Phone Buster Hyde Primary Care Provider Claire Linn MD Unavailable [phone] Renetta Morales DNP Unavailable [phone] Reason for Visit * Reason Onset Date Comments Faxed Order 02/18/2023 Order number [id number] Encounter Details Date Type Department Care Team Description 02/18/2023 Telephone Adult Medicine [address] [address] Buster Hyde [address] [place] [address] [phone] Faxed Order (Order number [id number]) Social History Tobacco Use Types Packs/Day Years [...] encounter Miscellaneous Notes * Telephone Encounter - Jimbo Koch - 02/18/2023 2:26 PM EDT Faxed orders from [facility] Order number [id number], please sign, date and fax back to [phone] documented in this encounter Plan of Treatment Not on file documented as of this encounter Visit Diagnoses Not on filedocumented in this encounter Care Teams School Lunch Monitor Relationship Specialty Start Date End Date Buster Hyde [address] [place] [address] PCP - General Internal Medicine 03/20/22 Claire Linn MD [address] [place] [address] Specialist Cardiology 05/01/22 Renetta Morales DNP [address] [place] [address] Specialist Cardiology 05/01/22 documented as of this encounter
--- OUTSIDE RECORDS SUMMARY | 2025-09-12 12:34 | XMS_ITS | Encounter Summary ---
Author Organization [facility] Prior to 08/07/2024 Address [address] [place] [address] Care Team Providers Care Mounter Saxophones Name Role Phone Tricia Kaur MD Primary Care Provider Unava ilable Ana Moreno MD Primary Care Provider Unavailab Lucien Wilkins MD Primary Care Provider [phone] Buster Hyde Primary Care Provider [phone] Claire Linn MD Unavailable [phone] Renetta Morales DNP Unavailable [phone] Encounter Details Date Type Department Care Team Description 12/20/2011 Regional Forester Report Medical Records [address] [place] [address] Criss Brown MD Social History Tobacco Use [...] on filedocumented in this encounter Care Teams Mounter Saxophones Relationship Specialty Start Date End Date Tricia Kaur MD PCP - General 04/16/11 04/18/21 Ana Moreno MD PCP - General Internal Medicine 04/19/21 09/14/21 Lucien Le MD [address] [place] [address] PCP - General Internal Medicine 09/15/21 03/19/22 Buster Hyde [address] [place] [address] PCP - General Internal Medicine 03/20/22 Claire Linn MD [address] [place] [address] Specialist Cardiology 05/01/22 Renetta Morales DNP [address] [place] [address] Specialist Cardiology 05/01/22 documented as of this encounter
--- OUTSIDE RECORDS SUMMARY | 2025-09-12 12:34 | XMS_ITS | Encounter Summary ---
Author Organization [facility] Prior to 08/07/2024 Address [address] [place] [address] Care Team Providers Care Immigration Attorney Name Role Phone Buster Hyde Primary Care Provider [phone] Claire Linn MD Unavailable [phone] Renetta Morales DNP Unavailable [phone] Reason for Visit * Reason Onset Date Comments VNA Call 01/01/2023 Encounter Details Date Type Department Care Team Description 01/01/2023 Telephone Adult Medicine [address] [address] Buster Hyde [address] [place] [address] [phone] VNA Call Social History Tobacco Use Types [...] Notes * Telephone Encounter - Eddy Chen L.P.NChristopher - 01/01/2023 12:31 PM EDT Read message to Meliza LAUGHLIN nurse she understands And will let the patient know * Telephone Encounter - Eddy Chen L.P.NChristopher - 01/01/2023 9:17 AM EDT Spoke with VNA nurse she wanted to know if the patient is suppose to take Metoprolol This is not onour med list appears an RX was filled on 12/[address] Hyde Reviewing cardi note 12/14 Please review and advise * Telephone Encounter - Maryellen Obando - 01/01/2023 9:02 AM EDT VNA CALL Which VNA office is calling? [facility] Full name of caller: Ally The caller is A Physical Therapist Is the caller at the patients home?: NO Reason for call: Needs verbal orders for PT 2x a week for 1 week then 1 week for 7 weeks to work ontranfers, strengthening and balance also wants to confirm if patient is supposed to be on metoprolol, its not in her chart but shes taking it just wants to make sure if this is ok Does caller need an urgent call back? YES Was CONTACT Telephone # obtained above?: YES Fax #: documented in this encounter Plan of Treatment Not on file documented as of this encounter Visit Diagnoses Not on filedocumented in this encounter Care Teams Immigration Attorney Relationship Specialty Start Date End Date Buster Hyde [address] [place] [address] PCP - General Internal Medicine 03/20/22 Claire Linn MD [address] [place] [address] Specialist Cardiology 05/01/22 Renetta Morales DNP [address] [place] [address] Specialist Cardiology 05/01/22 documented as of this encounter
--- OUTSIDE RECORDS SUMMARY | 2025-09-12 12:34 | XMS_ITS | Encounter Summary ---
Author Organization [facility] Prior to 08/07/2024 Address [address] [place] [address] Care Team Providers Care Shirring Tender Name Role Phone Tricia Kaur MD Primary Care Provider Unava ilAna [place] MD Primary Care Provider Unavailab Lucien Wilkins MD Primary Care Provider [phone] Buster Hyde Primary Care Provider Claire Linn MD Unavailable [phone] Renetta Morales DNP Unavailable [phone] Reason for Visit * Reason Onset Date Comments Faxed Order 01/27/2019 Encounter Details Date Type Department Care Team Description 01/27/2019 Telephone Adult Medicine [address] [address] Tricia Kaur MD Faxed Order Social History Tobacco Use Types [...] encounter Miscellaneous Notes * Telephone Encounter - Magdablaine CraneOrtiz - 01/27/2019 11:53 AM EDT [facility] faxed over plan of care to be signed and faxed to [phone]. Orders placedin pcp bin documented in this encounter Plan of Treatment Not on file documented as of this encounter Visit Diagnoses Not on filedocumented in this encounter Care Teams Shirring Tender Relationship Specialty Start Date End Date Tricia Kaur MD PCP - General 04/16/11 04/18/21 Ana Moreno MD PCP - General Internal Medicine 04/19/21 09/14/21 Lucien Le MD [address] [place] [address] PCP - General Internal Medicine 09/15/21 03/19/22 Buster Hyde [address] [place] [address] PCP - General Internal Medicine 03/20/22 Claire Linn MD [address] [place] [address] Specialist Cardiology 05/01/22 Renetta Morales DNP [address] [place] [address] Specialist Cardiology 05/01/22 documented as of this encounter
--- OUTSIDE RECORDS SUMMARY | 2025-09-12 12:34 | XMS_ITS | Encounter Summary ---
Author Organization [facility] Prior to 08/07/2024 Address [address] [place] [address] Care Team Providers Care Manager Of Distribution Name Role Phone Buster Hyde Primary Care Provider [phone] Claire Linn MD Unavailable [phone] Renetta Morales DNP Unavailable [phone] Encounter Details Date Type Department Care Team Description 12/30/2022 Home Health Certification Medical Records [address] [place] [address] Social History Tobacco Use Types Packs/Day Years [...] on filedocumented in this encounter Care Teams Manager Of Distribution Relationship Specialty Start Date End Date Buster Hyde [address] [place] [address] PCP - General Internal Medicine 03/20/22 Claire Linn MD [address] [place] [address] Specialist Cardiology 05/01/22 Renetta Morales DNP [address] [place] [address] Specialist Cardiology 05/01/22 documented as of this encounter
--- OUTSIDE RECORDS SUMMARY | 2025-09-12 12:35 | XMS_ITS | Encounter Summary ---
Author Organization [facility] Prior to 08/07/2024 Address [address] [place] [address] Care Team Providers Care Fiber Technologist Name Role Phone Tricia Kaur MD Primary Care Provider Unava ilable Ana Moreno MD Primary Care Provider Unavailab Lucien Wilkins MD Primary Care Provider Buster Hyde Primary Care Provider [phone] Claire Linn MD Unavailable [phone] Renetta Morales DNP Unavailable [phone] Encounter Details Date Type Department Care Team Description 04/01/2020 Telephone Vascular Surgery - [place] [address] [facility] [address] [place] [phone] Kelly Marie PA-C [address] [facility] [address] [place] [phone] Social History Tobacco Use Types Packs/Day Years [...] encounter Miscellaneous Notes * Telephone Encounter - Jackeline Youngnard - 04/01/2020 1:21 PM EDT PT HAS BEEN SCREENED FOR COVID-19 documented in this encounter Plan of Treatment Not on file documented as of this encounter Visit Diagnoses Not on filedocumented in this encounter Care Teams Fiber Technologist Relationship Specialty Start Date End Date Tricia Kaur MD PCP - General 04/16/11 04/18/21 Ana Moreno MD PCP - General Internal Medicine 04/19/21 09/14/21 Lucien Le MD [address] [place] [address] PCP - General Internal Medicine 09/15/21 03/19/22 Buster Hyde [address] [place] [address] PCP - General Internal Medicine 03/20/22 Claire Linn MD [address] [place] [address] Specialist Cardiology 05/01/22 Renetta Morales DNP [address] [place] [address] Specialist Cardiology 05/01/22 documented as of this encounter
--- OUTSIDE RECORDS SUMMARY | 2025-09-12 12:35 | XMS_ITS | Encounter Summary ---
Author Organization [facility] Prior to 08/07/2024 Address [address] [place] [address] Care Team Providers Care Showcase Maker Name Role Phone Tricia Kaur MD Primary Care Provider Unava ilable Ana Moreno MD Primary Care Provider Unavailab Lucien Wilkins MD Primary Care Provider [phone] Buster Hyde Primary Care Provider [phone] Claire Linn MD Unavailable Renetta Morales DNP Unavailable [phone] Encounter Details Date Type Department Care Team Description 10/28/2012 Digital Computer Operator Report Medical Records [address] [place] [address] Criss Brown MD Social History Tobacco Use [...] on filedocumented in this encounter Care Teams Showcase Maker Relationship Specialty Start Date End Date Tricia Kaur MD PCP - General 04/16/11 04/18/21 Ana Moreno MD PCP - General Internal Medicine 04/19/21 09/14/21 Lucien Le MD [address] [place] [address] PCP - General Internal Medicine 09/15/21 03/19/22 Buster Hyde [address] [place] [address] PCP - General Internal Medicine 03/20/22 Claire Linn MD [address] [place] [address] Specialist Cardiology 05/01/22 Renetta Morales DNP [address] [place] [address] Specialist Cardiology 05/01/22 documented as of this encounter
--- OUTSIDE RECORDS SUMMARY | 2025-09-12 12:35 | XMS_ITS | Encounter Summary ---
Author Organization [facility] Prior to 08/07/2024 Address [address] [place] [address] Care Team Providers Care Engineering Aid Name Role Phone Tricia Kaur MD Primary Care Provider Unava ilable Ana Moreno MD Primary Care Provider Unavailab Lucien Wilkins MD Primary Care Provider [phone] Buster Hyde Primary Care Provider [phone] Claire Linn MD Unavailable [phone] Renetta Morales DNP Unavailable [phone] Encounter Details Date Type Department Care Team Description 03/14/2020 It Support Consultant Report Medical Records [address] [place] [address] [facility] Social History Tobacco Use Types Packs/Day Years [...] on filedocumented in this encounter Care Teams Engineering Aid Relationship Specialty Start Date End Date Tricia Kaur MD PCP - General 04/16/11 04/18/21 Ana Moreno MD PCP - General Internal Medicine 04/19/21 09/14/21 Lucien Le MD [address] [place] [address] PCP - General Internal Medicine 09/15/21 03/19/22 Buster Hyde [address] [place] [address] PCP - General Internal Medicine 03/20/22 Claire Linn MD [address] [place] [address] Specialist Cardiology 05/01/22 Renetta Morales DNP [address] [place] [address] Specialist Cardiology 05/01/22 documented as of this encounter
--- OUTSIDE RECORDS SUMMARY | 2025-09-12 12:35 | XMS_ITS | Encounter Summary ---
Author Organization [facility] Prior to 08/07/2024 Address [address] [place] [address] Care Team Providers Care Associate Professor Of Economics Name Role Phone Tricia Kaur MD Primary Care Provider Unava ilable Ana Moreno MD Primary Care Provider Unavailab Lucien Wilkins MD Primary Care Provider [phone] Buster Hyde Primary Care Provider [phone] Claire Linn MD Unavailable [phone] Renetta Morales DNP Unavailable [phone] Encounter Details Date Type Department Care Team Description 09/14/2019 Home Health Certification Medical Records [address] [place] [address] Tricia Kaur MD Social History Tobacco Use [...] on filedocumented in this encounter Care Teams Associate Professor Of Economics Relationship Specialty Start Date End Date Tricia Kaur MD PCP - General 04/16/11 04/18/21 Ana Moreno MD PCP - General Internal Medicine 04/19/21 09/14/21 Lucien Le MD [address] [place] [address] PCP - General Internal Medicine 09/15/21 03/19/22 Buster Hyde [address] [place] [address] PCP - General Internal Medicine 03/20/22 Claire Linn MD [address] [place] [address] Specialist Cardiology 05/01/22 Renetta Morales DNP [address] [place] [address] Specialist Cardiology 05/01/22 documented as of this encounter
--- OUTSIDE RECORDS SUMMARY | 2025-09-12 12:35 | XMS_ITS | Encounter Summary ---
Author Organization [facility] Prior to 08/07/2024 Address [address] [place] [address] Care Team Providers Care Ged Tutor Name Role Phone Tricia Kaur MD Primary Care Provider Unava ilable Ana Moreno MD Primary Care Provider Unavailab Lucien Wilkins MD Primary Care Provider [phone] Buster Hyde Primary Care Provider [phone] Claire Linn MD Unavailable [phone] Renetta Morales DNP Unavailable [phone] Encounter Details Date Type Department Care Team Description 10/20/2014 Water Quality Tester Report Medical Records [address] [place] [address] Abstract, Provider Social History Tobacco Use Types [...] on filedocumented in this encounter Care Teams Ged Tutor Relationship Specialty Start Date End Date Tricia Kaur MD PCP - General 04/16/11 04/18/21 Ana Moreno MD PCP - General Internal Medicine 04/19/21 09/14/21 Lucien Le MD [address] [place] [address] PCP - General Internal Medicine 09/15/21 03/19/22 Buster Hyde [address] [place] [address] PCP - General Internal Medicine 03/20/22 Claire Linn MD [address] [place] [address] Specialist Cardiology 05/01/22 Renetta Morales DNP [address] [place] [address] Specialist Cardiology 05/01/22 documented as of this encounter
--- OUTSIDE RECORDS SUMMARY | 2025-09-12 12:35 | XMS_ITS | Encounter Summary ---
Author Organization [facility] Prior to 08/07/2024 Address [address] [place] [address] Care Team Providers Care Edger Hand Name Role Phone Tricia Kaur MD Primary Care Provider Unava ilable Ana Moreno MD Primary Care Provider Unavailab Lucien Wilkins MD Primary Care Provider [phone] Buster Hyde Primary Care Provider [phone] Claire Linn MD Unavailable [phone] Renetta Morales DNP Unavailable Encounter Details Date Type Department Care Team Description 07/07/2012 Buttermaker Continuous Churn Report Medical Records [address] [place] [address] Criss Brown MD Social History Tobacco Use [...] on filedocumented in this encounter Care Teams Edger Hand Relationship Specialty Start Date End Date Tricia Kaur MD PCP - General 04/16/11 04/18/21 Ana Moreno MD PCP - General Internal Medicine 04/19/21 09/14/21 Lucien Le MD [address] [place] [address] PCP - General Internal Medicine 09/15/21 03/19/22 Buster Hyde [address] [place] [address] PCP - General Internal Medicine 03/20/22 Claire Linn MD [address] [place] [address] Specialist Cardiology 05/01/22 Renetta Morales DNP [address] [place] [address] Specialist Cardiology 05/01/22 documented as of this encounter
--- OUTSIDE RECORDS SUMMARY | 2025-09-12 12:35 | XMS_ITS | Encounter Summary ---
Author Organization [facility] Prior to 08/07/2024 Address [address] [place] [address] Care Team Providers Care Imaging Account Manager Name Role Phone Tricia Kaur MD Primary Care Provider Unava ilable Ana Moreno MD Primary Care Provider Unavailab Lucien Wilkins MD Primary Care Provider [phone] Buster Hyde Primary Care Provider [phone] Claire Linn MD Unavailable [phone] Renetta Morales DNP Unavailable [phone] Encounter Details Date Type Department Care Team Description 10/01/2019 Marketing Services Coordinator Report Medical Records [address] [place] [address] Abstract, Provider Social History Tobacco Use Types [...] on filedocumented in this encounter Care Teams Imaging Account Manager Relationship Specialty Start Date End Date Tricia Kaur MD PCP - General 04/16/11 04/18/21 Ana Moreno MD PCP - General Internal Medicine 04/19/21 09/14/21 Lucien Le MD [address] [place] [address] PCP - General Internal Medicine 09/15/21 03/19/22 Buster Hyde [address] [place] [address] PCP - General Internal Medicine 03/20/22 Claire Linn MD [address] [place] [address] Specialist Cardiology 05/01/22 Renetta Morales DNP [address] [place] [address] Specialist Cardiology 05/01/22 documented as of this encounter
--- OUTSIDE RECORDS SUMMARY | 2025-09-12 12:35 | XMS_ITS | Encounter Summary ---
Author Organization [facility] Prior to 08/07/2024 Address [address] [place] [address] Care Team Providers Care Nurse Intern Name Role Phone Tricia Kaur MD Primary Care Provider Unava ilable Ana Moreno MD Primary Care Provider Unavailab Lucien Wilkins MD Primary Care Provider [phone] Buster Hyde Primary Care Provider Claire Linn MD Unavailable [phone] Renetta Morales DNP Unavailable [phone] Encounter Details Date Type Department Care Team Description 12/29/2018 Casino Slot Supervisor Report Medical Records [address] [place] [address] Abstract, Provider Social History Tobacco Use Types [...] on filedocumented in this encounter Care Teams Nurse Intern Relationship Specialty Start Date End Date Tricia Kaur MD PCP - General 04/16/11 04/18/21 Ana Moreno MD PCP - General Internal Medicine 04/19/21 09/14/21 Lucien Le MD [address] [place] [address] PCP - General Internal Medicine 09/15/21 03/19/22 Buster Hyde [address] [place] [address] PCP - General Internal Medicine 03/20/22 Claire Linn MD [address] [place] [address] Specialist Cardiology 05/01/22 Renetta Morales DNP [address] [place] [address] Specialist Cardiology 05/01/22 documented as of this encounter
--- OUTSIDE RECORDS SUMMARY | 2025-09-12 12:35 | XMS_ITS | Clinical Summary ---
Author Organization [facility] Address [address] [place] [address] Phone Care Team Providers Care Insurance Instructor Name Role Phone Lucien Le MD Primary Care Provider + Allergies Active Allergy Reactions Criticality Noted Date Comments Atropine 08/16/2005 Other reaction(s): eye pain Gentamicin 08/16/2005 Other reaction(s): eye pain Naproxen Hallucinations High 10/19/2021 Sulfa (Sulfonamide Antibiotics) Nausea And Vomiting 07/01/2007 nausea and metal taste in mouth Sulfamethoxazole-Trime thoprim Itching 10/19/2021 Medications atorvastatin (LIPITOR) 10 MG tablet Take 20 mg by mouth daily. 3 Active lisinopril (PRINIVIL,ZESTR IL) 10 MG tablet Take 20 mg by mouth daily. 3 Active gabapentin (NEURONTIN) 100 MG capsule Take 100 mg by mouth 3 (three) times a day. Active multivitamin-mi nerals-lutein (CENTRUM SILVER) Tab Take 1 tablet by mouth daily. Active mirabegron (MYRBETRIQ) 50 mg Tb24 Take 50 mg by mouth daily. 2 Active apixaban (ELIQUIS) 5 mg tablet Take 5 mg by mouth 2 (two) times a day. 3 Active cholecalciferol (VITAMIN D3) 25 MCG (1,000 unit) tablet Take 2,000 Units by mouth daily. 3 Active cranberry fruit (CRANBERRY) 450 mg Tab Take 450 mg by mouth 2 (two) times a day. 3 Active metoprolol succinate (TOPROL-XL) 25 MG 24 hr tablet Take 25 mg by mouth daily. 3 Active acetaminophen (TYLENOL) 500 MG tablet Take 1,000 mg by mouth 3 (three) times a day. 3 Active ascorbic acid, vitamin C, (ASCORBIC ACID WITH AARON HIPS) 500 MG tablet Take 500 mg by mouth daily. 3 Active zinc sulfate (ZINC-220) 50 mg zinc (220 mg) capsule Take 220 mg by mouth daily. 3 Active ibuprofen (ADVIL,MOTRIN) 600 MG tablet Take 600 mg by mouth every 8 (eight) hours as needed for pain (specific location in comments). 2 10/11/19 Discontinu ed(Therapy Completed/ No Longer Necessary) Immunizations Immunization Administration Dates Next Due COVID-19 (Pre-07/29) Pfizer Vaccine, mRNA, PF Social History Tobacco Use Types Packs/Day Years Used Date Smoking Tobacco: Never Assessed Home Health Assessment: Transportation Answer Date Recorded Lack of Transportation (Medical) No 11/09/2022 Lack of Transportation (Non-Medical) No 11/09/2022 Patient Unable or Declines to Respond No 11/09/2022 Education Answer Date Recorded Are you interested in more education? Not on judson e 02/01/2023 Are you concerned about learning? Not on file 02/01/2023 No 02/01/2023 No 02/01/2023 Digital Access Answer Date Recorded No 03/02/2023 No 03/02/2023 No 03/02/2023 Reliable internet access at home? Not on file 03/02/2023 Device with a working camera? Not on file Comments Unknown Sex and Gender Information Value Date Recorded Sex Assigned at Not on file Legal Sex Female 10:12 PM EDT Gender Identity Not on file Sexual Orientation Not on file Last Filed Vital Signs Vital Sign Reading Time Taken Comments Blood Pressure 126/62 11/09/2022 10:08 AM EST Pulse 72 11/09/2022 10:08 AM EST Temperature 36.7 C (98.1 F) 11/09/2022 10:08 AM EST Respiratory Rate 18 11/09/2022 10:08 AM EST Oxygen Saturation 98% 11/09/2022 10:08 AM EST Inhaled Oxygen Concentration - - Weight 81.6 kg (180 lb) 10/19/2021 9:59 AM EST Height 160 cm (5' 3 ) 10/19/2021 9:59 AM EST Body Mass Index 31.89 10/19/2021 9:59 AM EST Plan of Treatment Health Maintenance Due Date Last Done Comments DEPRESSION SCREENING 1952 ZOSTER VACCINES (1 of 2) 1990 OSTEOPOROSIS SCREENING INITIAL (ONE-TIME) 2005 RSV VACCINE (1 - 1-dose 75+ series) 2015 CREATININE LEVEL 01/02/2024 01/01/2023 POTASSIUM LEVEL 01/02/2024 01/01/2023 INFLUENZA VACCINE (#1) 2025 , 06/21/2020, 06/21/2020, Additional history exists COVID-19 VACCINE ( season) 2025 07/22/2021, 11/01/2020, 10/11/2020 Adult Td,Tdap Booster 10/22/2029 10/22/2019, 009 PNEUMOCOCCAL VACCINES (50+ years) Completed 07/25/2017, 09/26/2006 HEPATITIS A VACCINES Aged Out No long er eligible based on patient's age to complete this topic HIB VACCINES Aged Out No longer eligi ble based on patient's age to complete this topic MENINGOCOCCAL VACCINES (ACWY) Aged Out No longer eligible based on patient's age to complete this topic MENINGOCOCCAL VACCINES (B) Aged Out N o longer eligible based on patient's age to complete this topic Medical Devices Not on file Procedures Procedure Name Priority Date/Time Associated Diagnosis Comments COMPREHENSIVE METABOLIC PANEL (CMP) Routine 01/01/2023 6:35 AM EDT Atrial fibrillation, unspecified type Hyperlipidemia, unspecified hyperlipidemia type from Last 3 Months or Most Recently Relevant to Health Maintenance Results * (ABNORMAL) Comprehensive metabolic panel (01/01/2023 6:35 AM EDT) SODIUM 141 133 - 146 mmol/L [facility] POTASSIUM 4.2 3.3 - 5.1 mmol/L [facility] CHLORIDE 105 96 - 108 mmol/L [facility] CO2 26 21 - 35 mmol/L [facility] BUN 18 6 - 19 mg/dL [facility] CREATININE 0.60 0.5 - 1.5 mg/dL [facility] GLUCOSE 80 70 - 99 mg/dL [facility] ALBUMIN 3.4(L) 3.9 - 4.8 g/dL [facility] TOTAL PROTEIN 5.7(L) 6.5 - 8.0 g/dL [facility] CALCIUM 8.9 8.4 - 10.3 mg/dL [facility] ALKALINE PHOSPHATASE 106 39 - 117 U/L [facility] TOTAL BILIRUBIN 0.5 0.0 - 1.2 mg/dL [facility] AST 14 0 - 37 U/L [facility] ALT 7 0 - 40 U/L [facility] GLOBULIN 2.3 1 - 4.8 g/dL [facility] EGFR 90 >59 mL/min/1.7 3m2 [facility] Comment:Estimated glomerular filtration rate calculated using the CKD-EPI refit equation. ANION GAP 14 10 - 20 mmol/L [facility] Blood 01/01/2023 6:35 AM EDT 01/01/2023 9:46 AM EDT Rubina Asif MD LAB BLOOD BKR ORDERABLES Final Result [facility] [address] [place], [place] [id number] from Last 3 Months or Most Recently Relevant to Health Maintenance Insurance MEDICARE PART A & B [employer] SUPPLEMENT MEDICARE PART A & B [employer] CROSS MEDEX SUPPLEMENT MEDICARE PART A & B [employer] CROSS MEDEX SUPPLEMENT MEDICARE PART A & B [employer] CROSS MEDEX SUPPLEMENT MEDICARE PART A & B [employer] MEDEX SUPPLEMENT MEDICARE PART A & B [employer] MEDEX SUPPLEMENT MEDICARE PART A & B [facility] MEDEX SUPPLEMENT MEDICARE PART A & B [employer] MEDEX SUPPLEMENT MEDICARE PART A & B [employer] MEDEX SUPPLEMENT Advance Directives For more information, please contact: [phone] (9AM - 5PM Jennifer/[facility], Saturday-Saturday) Documents on File Type Date Recorded Patient Second Steward Expl anation Healthcare Proxy 10/19/2021 signed heal [facility] proxy Care Teams Insurance Instructor Relationship Specialty Start Date End Date Lucien Le MD [address] [place] [phone] PCP - General Internal Medicine 11/01/21 Additional Source Comments The information contained in this document represents components of the legal health record. It is not the complete legal health record.[facility]
--- OUTSIDE RECORDS SUMMARY | 2025-09-12 12:35 | XMS_ITS | Encounter Summary ---
Author Organization [facility] Prior to 08/07/2024 Address [address] [place] [address] Care Team Providers Care Building Dismantler Name Role Phone Tricia Kaur MD Primary Care Provider Unava ilAna Augustine MD Primary Care Provider Unavailab Lucien Wilkins MD Primary Care Provider [phone] Buster Hyde Primary Care Provider [phone] Claire Linn MD Unavailable [phone] Renetta Morales DNP Unavailable [phone] Encounter Details Date Type Department Care Team Description 07/05/2020 Bobbin Coil Winder Report Medical Records [address] [place] [id number] Jackeline Baker Social History Tobacco Use Types Packs/Day Years [...] have Coronavirus / COVID-19? No / Unsure 07/06/2020 7:37 AM EDT documented as of this encounter Plan of Treatment Not on file documented as of this encounter Visit Diagnoses Not on filedocumented in this encounter Care Teams Building Dismantler Relationship Specialty Start Date End Date Tricia Kaur MD PCP - General 04/16/11 04/18/21 Ana Moreno MD PCP - General Internal Medicine 04/19/21 09/14/21 Lucien Le MD [address] [place] [address] PCP - General Internal Medicine 09/15/21 03/19/22 Buster Hyde [address] [place] [address] PCP - General Internal Medicine 03/20/22 Claire Linn MD [address] [place] [address] Specialist Cardiology 05/01/22 Renetta Morales DNP [address] [place] [address] Specialist Cardiology 05/01/22 documented as of this encounter
--- OUTSIDE RECORDS SUMMARY | 2025-09-12 12:35 | XMS_ITS | Encounter Summary ---
Author Organization [facility] Prior to 08/07/2024 Address [address] [place] [address] Care Team Providers Care Director Of Transportation Name Role Phone Tricia Kaur MD Primary Care Provider Unava ilable Ana Moreno MD Primary Care Provider Unavailab Lucien Wilkins MD Primary Care Provider [phone] Buster Hyde Primary Care Provider [phone] Claire Linn MD Unavailable [phone] Renetta Morales DNP Unavailable [phone] Encounter Details Date Type Department Care Team Description 02/25/2020 Chemotherapist Report Medical Records [address] [place] [address] [facility] Social History Tobacco Use Types Packs/Day [...] in this encounter Care Teams Director Of Transportation Relationship Specialty Start Date End Date Tircia Kaur MD PCP - General 04/16/11 04/18/21 Ana Moreno MD PCP - General Internal Medicine 04/19/21 09/14/21 Lucien Le MD [address] [place] [address] PCP - General Internal Medicine 09/15/21 03/19/22 Buster Hyde [address] [place] [address] PCP - General Internal Medicine 03/20/22 Claire Linn MD [address] [place] [address] Specialist Cardiology 05/01/22 Renetta Morales DNP [address] [place] [address] Specialist Cardiology 05/01/22 documented as of this encounter
--- OUTSIDE RECORDS SUMMARY | 2025-09-12 12:35 | XMS_ITS | Encounter Summary ---
Author Organization [facility] Prior to 08/07/2024 Address [address] [place] [address] Care Team Providers Care Hardware Developer Name Role Phone Tricia Kaur MD Primary Care Provider Unava ilable Ana Moreno MD Primary Care Provider Unavailab Lucien Wilkins MD Primary Care Provider [phone] Buster Hyde Primary Care Provider [phone] Claire iLnn MD Unavailable [phone] Renetta Morales DNP Unavailable [phone] Encounter Details Date Type Department Care Team Description 11/09/2014 Hospital Medical Records [address] [place] [address] Harlan Ford MD Social History Tobacco Use [...] on filedocumented in this encounter Care Teams Hardware Developer Relationship Specialty Start Date End Date Tricia Kaur MD PCP - General 04/16/11 04/18/21 Ana Moreno MD PCP - General Internal Medicine 04/19/21 09/14/21 Lucien Le MD [address] [place] [address] PCP - General Internal Medicine 09/15/21 03/19/22 Buster Hyde [address] [place] [address] PCP - General Internal Medicine 03/20/22 Claire Linn MD [address] [place] [address] Specialist Cardiology 05/01/22 Renetta Morales DNP [address] [place] [address] Specialist Cardiology 05/01/22 documented as of this encounter
--- OUTSIDE RECORDS SUMMARY | 2025-09-12 12:35 | XMS_ITS | Encounter Summary ---
Author Organization [facility] Prior to 08/07/2024 Address [address] [place] [address] Care Team Providers Care Nursing Informatics Analyst Name Role Phone Buster Hyde Primary Care Provider [phone] Claire Linn MD Unavailable [phone] Renetta Morales DNP Unavailable [phone] Encounter Details Date Type Department Care Team Description 12/30/2022 Home Health Certification Medical Records [address] [place] [address] Social History Tobacco Use Types Packs/Day Years [...] on filedocumented in this encounter Care Teams Nursing Informatics Analyst Relationship Specialty Start Date End Date Buster Hyde [address] [place] [address] PCP - General Internal Medicine 03/20/22 Claire Linn MD [address] [place] [address] Specialist Cardiology 05/01/22 Renetta Morales DNP [address] [place] [address] Specialist Cardiology 05/01/22 documented as of this encounter
--- OUTSIDE RECORDS SUMMARY | 2025-09-12 12:35 | XMS_ITS | Encounter Summary ---
Author Organization [facility] Address [address] [place] [address] Phone Care Team Providers Care Hand Laminator Name Role Phone Tricia Kaur MD Primary Care Provide r Lucien Le MD Primary Care Provider + Reason for Referral * Physical Therapy (Routine) - Closed Specialty Diagnoses / Procedures Referred By Contjuan carlos goodwin Referred To Contact Physical Therapy Diagnoses Encounter for rehabilitation System, Provider Not In, [facility] [id number] [place] [address] Phone: tel: Referral ID Status Reason Start Date Expiration Date Visits Re quested Visits Authorized [id number] Closed 08/08/2018 08/08/2019 99 99 Encounter Details Date Type Department Care Team (Latest Contact Info) Description 08/08/2018 Transcribe Orders [facility] [address] [place] [address] Aldo Morgan MD [address] [place] [address] Encounter for rehabilitation (Primary Dx) Social History [...] Diagnoses Orde r Schedule Ambulatory referral to [facility] Physical Therapy Outpatient Referral Routine Encounter for rehabilitation Ordered: 08/08/2018 documented as of this encounter Visit Diagnoses Diagnosis Encounter for rehabilitation- Primary documented in this encounter Care Teams Hand Laminator Relationship Specialty Start Date End Date Tricia Kaur MD [address] [place] [address] PCP - General Internal Medicine 12/18/17 10/31/21 Lucien Le MD [address] [place] [phone] PCP - General Internal Medicine 11/01/21 documented as of this encounter Additional Source Comments The information contained in this document represents components of the legal health record. It is not the complete legal health record.[facility]
--- OUTSIDE RECORDS SUMMARY | 2025-09-12 12:35 | XMS_ITS | Encounter Summary ---
Author Organization [facility] Prior to 08/07/2024 Address [address] [place] [address] Care Team Providers Care Torch Operator Name Role Phone Tricia Kaur MD Primary Care Provider Unava ilable Ana Moreno MD Primary Care Provider Unavailab Lucien Wilkins MD Primary Care Provider [phone] Buster Hyde Primary Care Provider [phone] Claire Linn MD Unavailable [phone] Renetta Morales DNP Unavailable [phone] Encounter Details Date Type Department Care Team Description 12/31/2018 Hospital Medical Records [address] [place] [address] Evelyn Patton MD Social History Tobacco Use Types Packs/Day [...] on filedocumented in this encounter Care Teams Torch Operator Relationship Specialty Start Date End Date Tricia Kaur MD PCP - General 04/16/11 04/18/21 Ana Moreno MD PCP - General Internal Medicine 04/19/21 09/14/21 Lucien Le MD [address] [place] [address] PCP - General Internal Medicine 09/15/21 03/19/22 Buster Hyde [address] [place] [address] PCP - General Internal Medicine 03/20/22 Claire Linn MD [address] [place] [address] Specialist Cardiology 05/01/22 Renetta Morales DNP [address] [place] [address] Specialist Cardiology 05/01/22 documented as of this encounter
--- OUTSIDE RECORDS SUMMARY | 2025-09-12 12:35 | XMS_ITS | Encounter Summary ---
Author Organization [facility] Prior to 08/07/2024 Address [address] [place] [address] Care Team Providers Care Electromechanical Assembler Name Role Phone Tricia Kaur MD Primary Care Provider Unava ilable Ana Moreno MD Primary Care Provider Unavailab Lucien Wilkins MD Primary Care Provider [phone] Buster Hyde Primary Care Provider [phone] Claire Linn MD Unavailable [phone] Renetta Morales DNP Unavailable [phone] Encounter Details Date Type Department Care Team Description 06/09/2020 Hospital Medical Records [address] [place] [address] Evan Talbot MD, MD Social History Tobacco [...] on filedocumented in this encounter Care Teams Electromechanical Assembler Relationship Specialty Start Date End Date Tricia Kaur MD PCP - General 04/16/11 04/18/21 Ana Moreno MD PCP - General Internal Medicine 04/19/21 09/14/21 Lucien Le MD [address] [place] [address] PCP - General Internal Medicine 09/15/21 03/19/22 Buster Hyde [address] [place] [address] PCP - General Internal Medicine 03/20/22 Claire Linn MD [address] [place] [address] Specialist Cardiology 05/01/22 Renetta Morales DNP [address] [place] [address] [phone] Specialist Cardiology 05/01/22 documented as of this encounter
--- OUTSIDE RECORDS SUMMARY | 2025-09-12 12:35 | XMS_ITS | Encounter Summary ---
Author Organization [facility] Prior to 08/07/2024 Address [address] [place] [address] Care Team Providers Care Microbiology Professor Name Role Phone Tricia Kaur MD Primary Care Provider Unava ilAna Augustine MD Primary Care Provider Unavailab Lucien Wilkins MD Primary Care Provider [phone] Buster Hyde Primary Care Provider [phone] Claire Linn MD Unavailable [phone] Renetta Morales DNP Unavailable [phone] Reason for Visit * Reason Onset Date Comments Provider Call Back 01/01/2020 medication problems 01/01/2020 Encounter Details Date Type Department Care Team Description 01/01/2020 Telephone OBGYN - [address] [phone] Tricia Kaur MD Provider Call Back; medication problems Social History Tobacco Use Types [...] Telephone Encounter - Eddy Chen L.P.N. - 01/01/2020 3:18 PM EDT Reinforced phone consultation and advice Reviewed with the patient S/S to watch for that would require immediate attention If symptoms worsen patient can call the triage nurse immediately or go to the ER if needed can call 911 Patient states he/she is satisfied with information and homecare instructions he is able to verbalize the instructions given * Telephone Encounter - Aysha Le - 01/01/2020 3:13 PM EDT Caller requesting call back from provider: Is the caller the patient? YES Reason for call back: Patient has been taking Motrin 800mg for the past month. She has been seeing in the media that Motrin can aggravate COVID19 symptoms and is wondering if she should stop taking this medication. Please call patient back and advise. Caller offered to speak with the nurse for assistance: YES Response: Patient offered to speak with nurse for assistance and patient agreed. Message forwarded to nurse. documented in this encounter Plan of Treatment Not on file documented as of this encounter Visit Diagnoses Not on filedocumented in this encounter Care Teams Microbiology Professor Relationship Specialty Start Date End Date Tricia Kaur MD PCP - General 04/16/11 04/18/21 Ana Moreno MD PCP - General Internal Medicine 04/19/21 09/14/21 Lucien Le MD [address] [place] [address] PCP - General Internal Medicine 09/15/21 03/19/22 Buster Hyde [address] [place] [address] PCP - General Internal Medicine 03/20/22 Claire Linn MD [address] [place] [address] Specialist Cardiology 05/01/22 Renetta Morales DNP [address] [place] [address] Specialist Cardiology 05/01/22 documented as of this encounter
[2025-09-12 12:36] LABS: MANUAL DIFF FLAG SCAN
[2025-09-12 12:38] LABS: INTERNATIONAL NORM RATIO 1.0 (0.9-1.1); Prothrombin Time 12.2 SEC (11.2-13.5); Venous Blood Gas Refer to POC result
[2025-09-12 12:39] LABS: VBG HCO3 22 mmol/L (22-26); VBG O2 % Saturation 100.0 %
[2025-09-12 12:53] LABS: Alanine Aminotransferase 21 U/L (0-31); Albumin Level 4.4 g/dL (3.5-5.0); Alkaline Phosphatase 95 U/L (39-117); Anion Gap 17 (12-20); Aspartate Amino Transferase 27 U/L (5-31); Blood Urea Nitrogen 8 mg/dL (9-16); Calcium 9.9 mg/dL (8.4-10.2); Carbon Dioxide 23 mmol/L (22-29); Chloride 106 mmol/L (96-108); Creatinine Clr Calc Pharmacy 78.1; Estimated Glomerular Filt Rate > 60; Lipase 7 U/L (8-78); Magnesium 1.9 mg/dL (1.6-2.6); Potassium 3.4 mmol/L (3.3-5.1); Sodium 143 mmol/L (135-145); Total Protein 7.7 g/dL (6.5-8.0)
[2025-09-12 12:58] LABS: Troponin-I High Sensitivity 31.5 ng/L (<3.5-17.0)
--- NOTE | 2025-09-12 13:01 | PC.NURSE ---
Patient BIBA from home Baseline patient has dementia and is verbal Patient experienced a seizure lasting 10 minutes according to EMS EMS administered 5mg versed Upon arrival to ED patient was seizing, patient was given 5mg valium and keppra per MD Rectal temp 99.8 Patient incontinent of bowel and bladder Purewick put in place, patient stool very loose collected a sample for testing IV 20G RAC, IV 20G right hand Patient was on NRB 15L 100%, titrated to RA 95% RR 17 Patient non responsive at this time Blood collected sent to lab Patient on director design = NSR Patient awaiting imaging Plan of care on going
[2025-09-12 14:29] LABS: Reflex Lactate? Lactic Acid Added
[2025-09-12 15:08] LABS: ~Lactic Acid-LAB USE ONLY 2.0 mmol/L (0.5-2.0)
[2025-09-12 15:11] LABS: Appearance Urine Cloudy; Glucose Urine UA 250 mg/dL (Negative); PH 7.0 (5.0-9.0); Specific Gravity - Urine 1.015 (1.005-1.025); UMIC TRIGGER UACC YES
[2025-09-12 15:58] LABS: CDiff Gene PCR NEGATIVE (Negative)
[2025-09-12] MEDS: Lactated Ringers 1,000 ML 100 ML IVCONT (17:04)
--- NOTE | 2025-09-12 17:26 | PM.IMHP ---
History of Present Illness Date of Service: 09/12/25 Chief Complaint: Seizure 85-year-old female with past medical history significant for dementia who was brought in by ambulance for witnessed seizure lasting at least 20 minutes, failed 2 doses of 5 mg Versed by EMS, the ED patient received additional 5 mg of Valium and levetiracetam load. Labs showing WBC 8.7, hemoglobin 16.8, hematocrit 50.1, anion gap 17, lactic acid 2.6, troponin 31.5, beta hydroxybutyrate 2.8, UA with ketones over 160, head CT with no acute intracranial findings with moderate atrophy like changes in white matter disease. Patient at this time patient nonverbal, grunting to stimuli, with tremors, history was obtained through chart review and speaking with daughter at bedside. Refers that her brother has power of deputy county attorney for medical decision making. Review of Systems Review of Systems: Yes Unobtainable due to mental status [facility] Medical History (Updated 09/12/25 @ 17:27 by Luis Alberto Alvarenga MD) Obesity (BMI 30-39.9) Dementia with behavioral problem Delirium due to another medical condition PAD (peripheral artery disease) Dementia Paroxysmal atrial fibrillation Peripheral neuropathy TIA (transient ischemic attack) Foot drop Carotid artery stenosis Afib Hyperlipidemia Anemia Hypertension Surgical History S/P aortogram with runoff H/O foot surgery History of bilateral knee replacement H/O tubal ligation History of cholecystectomy H/O endarterectomy Social History Household Members: Unknown / Unable to assess Household Members Other:: pt states home with son and also states snf so unsure Housing: Unknown / Unable to assess Unable to assess alcohol history related to: Unable to respond Alcohol intake: former Comment: as per previous Patient Tobacco Use Status: Never used Tobacco Smoked in Last 30 Days: No Use of substances other than those prescribed or required for medical reasons: Unable to respond Advance Directives: Yes Advance Directives on File: Yes Advance Directives Date on File: 01/13/24 Do you have a plan to hurt others: No Plan service: No Meds Allergies Allergy/AdvReac Type Severity Reaction Status Date / Time gentamicin (GENTAMICIN) Allergy Intermediate SWELLING Verified 09/12/25 11:59 sulfamethoxazole (From Allergy Intermediate RASH Verified 09/12/25 11:59 BACTRIM) trimethoprim (From BACTRIM) Allergy Intermediate RASH Verified 09/12/25 11:59 Active Medications: Current Medications Acetaminophen (Acetaminophen 325 Mg Tablet) 650 mg PO Q6H PRN PRN Reason: Pain, Mild 1-3,fever,headache Calcium Carbonate (Calcium Carbonate 750 Mg Tab.Chew) 750 mg PO Q4H PRN PRN Reason: Heartburn Diazepam (Diazepam 10 Mg/2 Ml Cartridge) 10 mg IVPUSH Q4H PRN PRN Reason: Seizures Lactated Ringer's (Lr) 1,000 mls @ 100 mls/hr IVCONT .Q10H [facility] Last Admin: 09/12/25 17:04 Dose: 100 mls/hr Levetiracetam (Keppra) 500 mg in 100 mls @ 400 mls/hr IV Q12H [facility] Magnesium Hydroxide (Milk Of Magnesia 30 Ml Oral.Susp) 30 ml PO DAILY PRN PRN Reason: Constipation Melatonin (Melatonin 3 Mg Tablet) 6 mg PO BEDTIME PRN PRN Reason: Insomnia Sodium Chloride (0.9 % Sodium Chloride Flush 3 Ml Syringe) 3 ml IVFLUSH QSHIFT [facility] Home Medications ?Medication ?Instructions ?Recorded ?Confirmed ?Last Taken ?Type mirabegron 50 mg tablet,extended 50 mg PO DAILY 01/06/24 10/19/24 10/18/24 History release 24 hr (Myrbetriq) multivitamin 1 tab PO DAILY 01/06/24 10/19/24 10/18/24 History acetaminophen 500 mg tablet 1,000 mg PO Q4H PRN Fever Or Pain 01/16/24 09/12/25 05/14/24 08:30 History sennosides 8.6 mg tablet (senna) 8.6 mg PO BEDTIME 01/16/24 10/19/24 05/13/24 History silver sulfadiazine 1 % topical 1 appl topical BID PRN Rash 05/14/24 10/19/24 05/14/24 08:30 History cream (SSD) Physical Exam Vital Signs and Narrative: Vital Signs: Last Vital Signs Temp 99.3 F 09/12/25 16:47 Pulse 99 09/12/25 16:47 Resp 12 09/12/25 16:47 BP 118/67 09/12/25 16:47 Pulse Ox 93 09/12/25 16:47 O2 Del Method Room Air 09/12/25 16:47 BMI result Body Mass Index 25.1 General: Obtunded, poorly responsive Head: AT/NC ENT: Dry mucous membranes Neck: supple CVS; RRR, S1 S2 normal Lungs: Clear bilateral breath sounds, no wheezes or crackles Abd: Soft non tender, non distended Ext: Left upper extremity contracture MSK: moving all 4 limbs Skin: Senile purpura, sacral ulcer Psych: UTO Neurology: UTO Results Labs 09/12/25 12:20 09/12/25 12:20 Labs: Laboratory Results - last 24 hr 09/12/25 09/12/25 09/12/25 12:01 12:20 12:35 MCV 93.5 MCH 31.3 MCHC 33.5 RDW 12.9 Plt Count 230 D MPV 12.0 Immature Gran % (Auto) 1.0 H Neut % (Auto) 90.5 H Lymph % (Auto) 6.4 L [place] % (Auto) 1.8 L Eos % (Auto) 0.2 Baso % (Auto) 0.1 Lymph # (Auto) 0.6 L [place] # (Auto) 0.2 Eos # (Auto) 0.0 Baso # (Auto) 0.0 Abs Immat Gran (auto) 0.09 H Absolute Neuts (auto) 7.9 Absolute Nucleated RBC 0.000 Nucleated RBC % (auto) 0.0 Smear Tech's Comments VERIFIED PT 12.2 INR 1.0 VBG pH 7.40 VBG pCO2 35 VBG pO2 131 VBG HCO3 22 VBG O2 Saturation 100.0 VBG Base Excess -1.4 Anion Gap 17 Estim Creat Clear Calc 78.1 Estimated GFR > 60 POC Glucose 140 H Random Glucose 162 H Lactic Acid 2.6 H* Lactic Acid F/U @ 2Hr Calcium 9.9 D Magnesium 1.9 Total Bilirubin 0.8 AST 27 ALT 21 Alkaline Phosphatase 95 Total Creatine Kinase 61 Troponin I High Sens 31.5 H D Total Protein 7.7 Albumin 4.4 Lipase 7 L Beta-Hydroxybutyrate 2.83 H Urine Color Urine Appearance Urine pH Ur Specific [place] Urine Protein Urine Glucose (UA) Urine Ketones Urine Blood Urine Nitrite Ur Leukocyte Esterase Urine RBC Urine WBC Ur Squamous Epith Cells Urine Bacteria Hyaline Casts C. difficile Tox B Gene 09/12/25 09/12/25 14:50 14:58 MCV MCH MCHC RDW Plt Count MPV Immature Gran % (Auto) Neut % (Auto) Lymph % (Auto) [place] % (Auto) Eos % (Auto) Baso % (Auto) Lymph # (Auto) [place] # (Auto) Eos # (Auto) Baso # (Auto) Abs Immat Gran (auto) Absolute Neuts (auto) Absolute Nucleated RBC Nucleated RBC % (auto) Smear Tech's Comments PT INR VBG pH VBG pCO2 VBG pO2 VBG HCO3 VBG O2 Saturation VBG Base Excess Anion Gap Estim Creat Clear Calc Estimated GFR POC Glucose Random Glucose Lactic Acid Lactic Acid F/U @ 2Hr 2.0 Calcium Magnesium Total Bilirubin AST ALT Alkaline Phosphatase Total Creatine Kinase Troponin I High Sens Total Protein Albumin Lipase Beta-Hydroxybutyrate Urine Color Yellow Urine Appearance Cloudy Urine pH 7.0 Ur Specific [place] 1.015 Urine Protein 100 (2+) H Urine Glucose (UA) 250 H Urine Ketones >=160 Urine Blood Trace H Urine Nitrite Negative Ur Leukocyte Esterase Negative Urine RBC 0-2 Urine WBC 0-5 Ur Squamous Epith Cells 0-2 Urine Bacteria 2+ Hyaline Casts 0-2 C. difficile Tox B Gene NEGATIVE Assessment and Plan (1) Decubitus ulcer, stage III: Qualifiers: Pressure injury location: sacral region Qualified Code(s): L89.153 - Pressure ulcer of sacral region, stage 3 Status: Acute (2) Epileptic seizure: Status: Acute Plan Assessment: 85-year-old female who presented to hospital after witnessed seizure not relieved by Valium given by EMS, received 5 mg dose of Valium in hospital. At this time admitted for encephalopathy and new onset seizures. Impression Toxic metabolic encephalopathy, likely multifactorial in the setting of recent Valium and seizure New onset seizure Lactic acidosis, likely secondary to dehydration Elevated troponin, likely in the setting of dehydration Dementia, patient on memantine at home Stage III decubitus ulcer Ambulatory dysfunction, bed-bound at baseline Plan CT and labs reviewed Blood cultures, UDS ordered and pending We will order MRI to assess for prior CVA, EEG ordered Status post Valium and Keppra loading dose, we will initiate Keppra 500 mg b.i.d. IV given patient's NPO status, p.r.n. Valium ordered. Telemetry order placed Neurology consulted We will continue with Rocephin 1 g Q 24 hours Continue with LR at 100 mL/hour We will restart patient's medications once med rec is done Wound care consulted for stage III decubitus ulcer, offloading q.2 hours At this time we will place SCDs, DVT prophylaxis on hold until MRI is obtained FEN: LR, replete as needed, NPO until assessed by speech and mentation approved Gi PPx: Protonix 40 mg IV DVT PPX: SCDs Code status: DNR/DNI Disposition: Clinical and brother, however no response, per ED physician spoke with son who is patient's power of deputy county attorney, who agreed having patient DNR DNI. Case management has been consulted. Total time managing care of this patient today: 75 minutes. Quality Stroke Does the patient have a stroke diagnosis?: No VTE Prior VTE?: No VTE Risk Level:: Medical - moderate - high VTE Device Contraindication: N/A - Device Ordered VTE Drug Contraindication: Treatment Not Indicated
--- NOTE | 2025-09-12 17:29 | PHA.MEDREC ---
Pharmacy Consult ? Medication Reconciliation Pharmacy has completed the medication reconciliation.Spoke to patient's son Horacio. He stated that she is no longer taking any of her previous medications or vitamins. He agreed that she may occasionally take tylenol so I left her prn order
[2025-09-12 17:32] LABS: Troponin-I High Sensitivity 48.9 ng/L (<3.5-17.0)
--- NOTE | 2025-09-12 19:17 | PC.NURSE ---
Pt came to floor via stretcher with dtr at bedside. Pt is non-responsive to voice. Eyes closed, face twitching. Facial movements are symmetrical. Left arm contracted, body rigid. Open sore over her coccyx, abrasions to right buttock, maceration and redness to buttocks area. on room air. Snoring. Seizure pads in place. Dtr reports pt has dementia and contracture at baseline. She has not been walking for months. She reports that her brother Jimbo is software installation engineer and HCP. [phone]. Dtr Audelia ([phone]) has expressed concerns about pt's care at home, but has a complicated relationship with the brother. APS may be involved.
[2025-09-12 20:33] LABS: Glucose, Whole Blood 118 mg/dL (60-115)
[2025-09-12] MEDS: levETIRAcetam in NaCl (iso-os) 500 MG/100 ML PIGGYBACK 400 MG IV (22:50)
[2025-09-13 03:11] VITALS: BP 152/89; PULSE 104; RESP 19; TEMP 36.9; O2SAT 93
[2025-09-13] MEDS: Lactated Ringers 1,000 ML 100 ML IVCONT ×2 (05:58→17:10)
[2025-09-13 07:29] LABS: Glucose, Whole Blood 84 mg/dL (60-115)
[2025-09-13 08:00] VITALS: BP 161/74; PULSE 70; RESP 19; TEMP 36.6; O2SAT 96
[2025-09-13 08:11] LABS: MANUAL DIFF FLAG NO
[2025-09-13 08:27] LABS: Hematocrit 41.1 % (37.0-47.0); Hemoglobin 13.9 g/dl (12.0-16.0); Imm Gran Abs Auto 0.04 X10*3/uL (0.00-0.03); Imm Gran Pct Auto 0.5 % (0.0-0.4); Lymphocytes Absolute Auto 1.4 X10*3/uL (1.2-4.9); Mean Corpuscular HGB Conc 33.8 g/dl (31.0-35.0); Mean Corpuscular Hemoglobin 31.2 pg (27.0-33.0); Mean Corpuscular Volume 92.2 fL (80.0-98.0); NRBC Abs Auto 0.000 X10*3/uL (0.0-0.012); NRBC Pct Auto 0.0 /100WBC (0.0-0.2); Platelet Count 202 X10*3/uL (160-400); Red Blood Count 4.46 X10*6/uL (4.20-5.50); White Blood Count 8.0 X10*3/uL (4.8-10.8)
[2025-09-13 08:28] LABS: Anion Gap 15 (12-20); Blood Urea Nitrogen 9 mg/dL (9-16); Calcium 9.4 mg/dL (8.4-10.2); Carbon Dioxide 22 mmol/L (22-29); Chloride 108 mmol/L (96-108); Creatinine Clr Calc Pharmacy 101.7; Estimated Glomerular Filt Rate > 60; Magnesium 1.8 mg/dL (1.6-2.6); Potassium 3.2 mmol/L (3.3-5.1); Sodium 142 mmol/L (135-145)
[2025-09-13 08:49] LABS: Thyroid Stimulating Hormone 0.80 uIU/mL (0.32-4.0)
--- NOTE | 2025-09-13 09:29 | P.PNIM_ITS ---
Subjective Subjective Date of Service: 09/13/25 Interval History: Patient seen and examined at bedside this morning, patient continues to be nonresponsive, blood cultures positive for Gram-positive cocci. Review of Systems Review of Systems: Yes all other systems are reviewed and are negative Physical Exam 2 Exam: Exam: General: Obtunded, poorly responsive Head: AT/NC ENT: Dry mucous membranes Neck: supple CVS; RRR, S1 S2 normal Lungs: Clear bilateral breath sounds, no wheezes or crackles Abd: Soft non tender, non distended Ext: Left upper extremity contracture MSK: moving all 4 limbs Skin: Senile purpura, sacral ulcer Psych: UTO Neurology: UTO Vital Signs: Vital Signs: Last Vital Signs Temp 97.8 F 09/13/25 08:00 Pulse 70 09/13/25 08:00 Resp 19 09/13/25 08:00 BP 161/74 H 09/13/25 08:00 Pulse Ox 96 09/13/25 08:00 O2 Del Method Room Air 09/13/25 08:00 BMI result Body Mass Index 26.3 Objective Data Active Medications Acetaminophen (Acetaminophen 325 Mg Tablet) 650 mg PO Q6H PRN PRN Reason: Pain, Mild 1-3,fever,headache Calcium Carbonate (Calcium Carbonate 750 Mg Tab.Chew) 750 mg PO Q4H PRN PRN Reason: Heartburn Diazepam (Diazepam 10 Mg/2 Ml Cartridge) 10 mg IVPUSH Q4H PRN PRN Reason: Seizures Lactated Ringer's (Lr) 1,000 mls @ 100 mls/hr IVCONT .Q10H [facility] Last Admin: 09/13/25 05:58 Dose: 100 mls/hr Documented By: MOIRA Levetiracetam (Keppra) 500 mg in 100 mls @ 400 mls/hr IV Q12H [facility] Last Infusion: 09/12/25 23:05 Dose: Infused Documented By: ALICIA Magnesium Hydroxide (Milk Of Magnesia 30 Ml Oral.Susp) 30 ml PO DAILY PRN PRN Reason: Constipation Melatonin (Melatonin 3 Mg Tablet) 6 mg PO BEDTIME PRN PRN Reason: Insomnia Pantoprazole Sodium (Pantoprazole Sodium 40 Mg/10 Ml Vial) 40 mg IVPUSH DAILY@0630 [facility] Last Admin: 09/13/25 05:58 Dose: 40 mg Documented By: MOIRA Sodium Chloride (0.9 % Sodium Chloride Flush 3 Ml Syringe) 3 ml IVFLUSH QSHIFT [facility] Last Admin: 09/13/25 09:18 Dose: Not Given Documented By: JOHN Non-Admin Reason: IV Running Labs 09/13/25 08:04 09/13/25 08:04 Labs: Laboratory Results - last 24 hr 09/12/25 09/12/25 09/12/25 12:01 12:20 12:35 MCV 93.5 MCH 31.3 MCHC 33.5 RDW 12.9 Plt Count 230 D MPV 12.0 Immature Gran % (Auto) 1.0 H Neut % (Auto) 90.5 H Lymph % (Auto) 6.4 L [place] % (Auto) 1.8 L Eos % (Auto) 0.2 Baso % (Auto) 0.1 Lymph # (Auto) 0.6 L [place] # (Auto) 0.2 Eos # (Auto) 0.0 Baso # (Auto) 0.0 Abs Immat Gran (auto) 0.09 H Absolute Neuts (auto) 7.9 Absolute Nucleated RBC 0.000 Nucleated RBC % (auto) 0.0 Smear Tech's Comments VERIFIED PT 12.2 INR 1.0 VBG pH 7.40 VBG pCO2 35 VBG pO2 131 VBG HCO3 22 VBG O2 Saturation 100.0 VBG Base Excess -1.4 Anion Gap 17 Estim Creat Clear Calc 78.1 Estimated GFR > 60 POC Glucose 140 H Random Glucose 162 H Lactic Acid 2.6 H* Lactic Acid F/U @ 2Hr Calcium 9.9 D Magnesium 1.9 Total Bilirubin 0.8 AST 27 ALT 21 Alkaline Phosphatase 95 Total Creatine Kinase 61 Troponin I High Sens 31.5 H D Total Protein 7.7 Albumin 4.4 Lipase 7 L Beta-Hydroxybutyrate 2.83 H TSH Urine Color Urine Appearance Urine pH Ur Specific [place] Urine Protein Urine Glucose (UA) Urine Ketones Urine Blood Urine Nitrite Ur Leukocyte Esterase Urine RBC Urine WBC Ur Squamous Epith Cells Urine Bacteria Hyaline Casts C. difficile Tox B Gene 09/12/25 09/12/25 09/12/25 14:50 14:58 17:06 MCV MCH MCHC RDW Plt Count MPV Immature Gran % (Auto) Neut % (Auto) Lymph % (Auto) [place] % (Auto) Eos % (Auto) Baso % (Auto) Lymph # (Auto) [place] # (Auto) Eos # (Auto) Baso # (Auto) Abs Immat Gran (auto) Absolute Neuts (auto) Absolute Nucleated RBC Nucleated RBC % (auto) Smear Tech's Comments PT INR VBG pH VBG pCO2 VBG pO2 VBG HCO3 VBG O2 Saturation VBG Base Excess Anion Gap Estim Creat Clear Calc Estimated GFR POC Glucose Random Glucose Lactic Acid Lactic Acid F/U @ 2Hr 2.0 Calcium Magnesium Total Bilirubin AST ALT Alkaline Phosphatase Total Creatine Kinase Troponin I High Sens 48.9 H D Total Protein Albumin Lipase Beta-Hydroxybutyrate TSH Urine Color Yellow Urine Appearance Cloudy Urine pH 7.0 Ur Specific [place] 1.015 Urine Protein 100 (2+) H Urine Glucose (UA) 250 H Urine Ketones >=160 Urine Blood Trace H Urine Nitrite Negative Ur Leukocyte Esterase Negative Urine RBC 0-2 Urine WBC 0-5 Ur Squamous Epith Cells 0-2 Urine Bacteria 2+ Hyaline Casts 0-2 C. difficile Tox B Gene NEGATIVE 09/12/25 09/13/25 09/13/25 20:29 07:24 08:04 MCV 92.2 MCH 31.2 MCHC 33.8 RDW 13.0 Plt Count 202 MPV 12.4 H Immature Gran % (Auto) 0.5 H Neut % (Auto) 74.7 H Lymph % (Auto) 17.2 L [place] % (Auto) 7.3 Eos % (Auto) 0.0 Baso % (Auto) 0.3 Lymph # (Auto) 1.4 [place] # (Auto) 0.6 Eos # (Auto) 0.0 Baso # (Auto) 0.0 Abs Immat Gran (auto) 0.04 H Absolute Neuts (auto) 6.0 Absolute Nucleated RBC 0.000 Nucleated RBC % (auto) 0.0 Smear Tech's Comments PT INR VBG pH VBG pCO2 VBG pO2 VBG HCO3 VBG O2 Saturation VBG Base Excess Anion Gap 15 Estim Creat Clear Calc 101.7 Estimated GFR > 60 POC Glucose 118 H 84 Random Glucose 96 Lactic Acid Lactic Acid F/U @ 2Hr Calcium 9.4 Magnesium 1.8 Total Bilirubin AST ALT Alkaline Phosphatase Total Creatine Kinase Troponin I High Sens Total Protein Albumin Lipase Beta-Hydroxybutyrate TSH 0.80 Urine Color Urine Appearance Urine pH Ur Specific [place] Urine Protein Urine Glucose (UA) Urine Ketones Urine Blood Urine Nitrite Ur Leukocyte Esterase Urine RBC Urine WBC Ur Squamous Epith Cells Urine Bacteria Hyaline Casts C. difficile Tox B Gene Assessment and Plan (1) Decubitus ulcer, stage III: Status: Acute (2) Seizure disorder: Status: Acute (3) Bacteremia: Status: Acute Plan Assessment: 85-year-old female who presented to hospital after witnessed seizure not relieved by Valium given by EMS, received 5 mg dose of Valium in hospital. At this time admitted for encephalopathy and new onset seizures. with blood cultures growing GPC on 2/2 bottles. Impression Toxic metabolic encephalopathy, likely multifactorial in the setting of recent Valium, seizure and newly diagnosed bacteremia Bacteremia New onset seizure Lactic acidosis, likely multifactorial in setting of dehydration and bacteremia Elevated troponin, likely in the setting of dehydration Dementia, not on home medications Stage III decubitus ulcer Ambulatory dysfunction, bed-bound at baseline Hypokalemia Plan CT and labs reviewed Blood cultures growing gram positive cocci 2/2, UDS ordered and pending We will order MRI to assess for prior CVA, EEG ordered Status post Valium and Keppra loading dose, continue Keppra 500 mg b.i.d. IV given patient's NPO status, p.r.n. Valium ordered. Telemetry Neurology consulted, consulted ID given bacteremia We will continue with Rocephin 1 g Q 24 hours Continue with LR at 100 mL/hour Per son, patient only taking tylenol as outpatient Wound care consulted for stage III decubitus ulcer, offloading q.2 hours At this time we will place SCDs, DVT prophylaxis on hold until MRI is obtained continue LR FEN: LR, replete as needed, NPO mentation approved Gi PPx: Protonix 40 mg IV DVT PPX: SCDs Code status: DNR/DNI Total time managing care of this patient today: 55 minutes. Quality Stroke Does the patient have a stroke diagnosis?: No VTE Prior VTE?: No VTE Risk Level:: Medical - moderate - high VTE Device Contraindication: N/A - Device Ordered VTE Drug Contraindication: Treatment Not Indicated
--- NOTE | 2025-09-13 10:45 | P.CNNE_ITS ---
History of Present Illness Data of Consult Service Date: 09/13/25 Primary Care Provider: Unknown Physician HPI Reason for consult: Encephalopathy 85 years old woman who probably has nnxnfzmy-[id number]-cgcdsg degenerative dementia with significant cortical and anterior temporal lobe atrophy noted on her brain scan came to hospital after prolonged seizure. Details of seizures were unclear but apparently she had many minutes of seizure and was given benzodiazepine and was brought here. She was unable to communicate and not able to provide any history. Review of Systems 2 Review of Systems: Could not be done with [facility] Past Medical History Medical History (Updated 09/13/25 @ 10:49 by Jared Chiu MD) Obesity (BMI 30-39.9) Dementia with behavioral problem Delirium due to another medical condition PAD (peripheral artery disease) Dementia Paroxysmal atrial fibrillation Peripheral neuropathy TIA (transient ischemic attack) Foot drop Carotid artery stenosis Afib Hyperlipidemia Anemia Hypertension Surgical History Surgical History S/P aortogram with runoff H/O foot surgery History of bilateral knee replacement H/O tubal ligation History of cholecystectomy H/O endarterectomy Social History Social History Household Members: Family Household Members Other:: pt states home with son and also states snf so unsure Housing: House Alcohol intake: former Comment: as per previous Patient Tobacco Use Status: Never used Tobacco Advance Directives Date on File: 01/13/24 service: No Meds Allergies Allergy/AdvReac Type Severity Reaction Status Date / Time gentamicin (GENTAMICIN) Allergy Intermediate SWELLING Verified 09/12/25 11:59 sulfamethoxazole (From Allergy Intermediate RASH Verified 09/12/25 11:59 BACTRIM) trimethoprim (From BACTRIM) Allergy Intermediate RASH Verified 09/12/25 11:59 Active Medications: Current Medications Acetaminophen (Acetaminophen 325 Mg Tablet) 650 mg PO Q6H PRN PRN Reason: Pain, Mild 1-3,fever,headache Calcium Carbonate (Calcium Carbonate 750 Mg Tab.Chew) 750 mg PO Q4H PRN PRN Reason: Heartburn Diazepam (Diazepam 10 Mg/2 Ml Cartridge) 10 mg IVPUSH Q4H PRN PRN Reason: Seizures Lactated Ringer's (Lr) 1,000 mls @ 100 mls/hr IVCONT .Q10H [facility] Last Admin: 09/13/25 05:58 Dose: 100 mls/hr Levetiracetam (Keppra) 500 mg in 100 mls @ 400 mls/hr IV Q12H [facility] Last Infusion: 09/12/25 23:05 Dose: Infused Magnesium Hydroxide (Milk Of Magnesia 30 Ml Oral.Susp) 30 ml PO DAILY PRN PRN Reason: Constipation Melatonin (Melatonin 3 Mg Tablet) 6 mg PO BEDTIME PRN PRN Reason: Insomnia Pantoprazole Sodium (Pantoprazole Sodium 40 Mg/10 Ml Vial) 40 mg IVPUSH DAILY@0630 [facility] Last Admin: 09/13/25 05:58 Dose: 40 mg Sodium Chloride (0.9 % Sodium Chloride Flush 3 Ml Syringe) 3 ml IVFLUSH QSHIFT [facility] Last Admin: 09/13/25 09:18 Dose: Not Given Home Medications ?Medication ?Instructions ?Recorded ?Confirmed ?Last Taken ?Type acetaminophen 500 mg tablet 1,000 mg PO Q4H PRN Fever Or Pain 01/16/24 09/12/25 05/14/24 08:30 History Physical Exam 2 Vital Signs: Vital Signs: Last Vital Signs Temp 97.8 F 09/13/25 08:00 Pulse 70 09/13/25 08:00 Resp 19 09/13/25 08:00 BP 161/74 H 09/13/25 08:00 Pulse Ox 96 09/13/25 08:00 O2 Del Method Room Air 09/13/25 08:00 BMI result Body Mass Index 26.3 Neuro: Other: Mental Status: She is moaning and groaning with eyes closed. She did not follow any commands even with shouting. Cranial Nerves: I was able to open her eyes and eyes were midline about 3 mm round. Face seems symmetrical. Other cranial nerves could not be checked. Motor: No obvious focal arm or leg weakness though exam was limited. Deep tendon reflexes are absent with flexor plantars. Extrapyramidal: Limited exam. Speech: Did not speak. Results Labs 09/13/25 08:04 09/13/25 08:04 Labs: Short CBC 09/12/25 09/13/25 Range/Units 12:20 08:04 WBC 8.7 8.0 (4.8-10.8) X10*3/uL Hgb 16.8 H D 13.9 (12.0-16.0) g/dl Hct 50.1 H D 41.1 (37.0-47.0) % Plt Count 230 D 202 (160-400) X10*3/uL BMP 09/12/25 09/13/25 12:20 08:04 Sodium 143 142 Potassium 3.4 3.2 L Chloride 106 108 Carbon Dioxide 23 22 BUN 8 L 9 Creatinine 0.55 0.46 L Calcium 9.9 D 9.4 Cardiac Enzymes 09/12/25 Range/Units 12:20 Total Creatine Kinase 61 (26-140) U/L Liver Function 09/12/25 Range/Units 12:20 Total Bilirubin 0.8 (0.0-1.0) mg/dL AST 27 (5-31) U/L ALT 21 (0-31) U/L Alkaline Phosphatase 95 (39-117) U/L Albumin 4.4 (3.5-5.0) g/dL Urine 09/12/25 Range/Units 14:58 Urine Color Yellow Urine Appearance Cloudy Urine pH 7.0 (5.0-9.0) Ur Specific [place] 1.015 (1.005-1.025) Urine Protein 100 (2+) H (Neg-Trace) mg/dL Urine Glucose (UA) 250 H (Negative) mg/dL [place] [id number] CT Scan Report Signed Patient: Shonda Hernadez MR#: [id number] : 1940 Acct:[id number] Age/Sex: 85 / F ADM Date: 09/12/25 Loc: HO.ED Attending Dr: Ordering Physician: Andre Donato DO Date of Service: 09/12/25 Procedure(s): CT head/brain wo IV con Accession Number(s): [id number] cc: Physician,Unknown ; Andre Donato DO~ Report Number: [id number]: Total DLP = 655.00 mGy-cm Reason for Exam: new onset seizure CLINICAL HISTORY: new onset seizure CT head without contrast Comparison: CT head 10/19/2024 Findings: No intra-axial mass, midline shift, hydrocephalus, or acute hemorrhage. Moderate atrophy-like change and white matter disease. The visualized paranasal sinuses and mastoid air cells are normal. The orbits are within normal limits. There is no acute fracture. IMPRESSION: 1. No acute intracranial findings. Microbiology Microbiology Results: Microbiology 09/12/25 15:58 Blood - Venous Blood Culture - Preliminary Prelim: GPC Gram Stain only 09/12/25 15:58 Blood - Venous Blood Culture - Preliminary Prelim: GPC Gram Stain only Assessment and Plan (1) Seizure disorder: Status: Acute 85 years old woman with probably tmewggbn-nv-tfhoul dementia of degenerative type with significant cortical and anterior temporal atrophy was brought to hospital after prolonged seizure and was treated with benzodiazepine. Presently she was unresponsive. Etiology probably is multifactorial. My recommendation is to obtain an EEG to rule out nonconvulsive status. In the meantime my recommendation is to load her with levetiracetam. Procedures Date of Service Date of Service: 09/13/25
--- NOTE | 2025-09-13 11:10 | P.CDIM_ITS ---
PROVIDER RESPONSE TEXT: To clarify, the appropriate diagnosis supported by the clinical indicators: Acute QUERY TEXT: PHYSICIAN'S DOCUMENTATION REQUEST Date of Query: 09/13/2025 11:02 AM EST Patient Name: Shonda Hernadez Admit Date: 09/12/2025 Dear Luis Alberto Alvarenga MD, A review of the medical record indicates additional documentation may be needed. Please review below and update the documentation accordingly. Clinical Indicators: H&P - Lactic acidosis, likely secondary to dehydration. LA 2.6 Clarify which of the following accurately represents the acuity of the Lactic acidosis: Possible options might include: Acute Chronic Other (explain) Clinically unable to determine (explain) Thank you, Libertad Mcconnell, CCS, CDIS Use of terms such as suspected, likely, concern for, or probable (associated with a specific diagnosis that is being evaluated, monitored, or treated as if it exists) are acceptable and can be coded in the inpatient setting, when documented at the time of discharge. Please use your independent medical judgment in providing your response. THIS QUERY IS PART OF THE PERMANENT MEDICAL RECORD
--- NOTE | 2025-09-13 11:12 | MHC.CM.PN ---
IMM 09/13/25, Pt. 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 CM spoke with first HCP, dtr Yenni. Yenni explained that pt. was in a memory care [facility], son took her out (son, Jimbo is POA and lives in pt.'s home.) Pt was in a STR in January, and Jimbo took her out AMA. Yenni reported that when she visited her mother and asked about med. care, her brother told her to leave the home. Yenni said they also have other siblings. CM let her know that she is the decision maker for health care, she is listed first on the HCP, copy was left in room for her. 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 back in the home. CM gave info on STR, Ins. and LTC. and suggested she reach back out to the memory care [facility], that may be a good option if they have a room available. CM will follow and assist with DCP.
[2025-09-13 11:29] VITALS: BMI 26.3
[2025-09-13 11:37] VITALS: BP 130/84; PULSE 86; RESP 19; TEMP 36.2; O2SAT 93
[2025-09-13] MEDS: levETIRAcetam in NaCl (iso-os) 500 MG/100 ML PIGGYBACK 400 MG IV ×2 (13:28→22:25)
--- NOTE | 2025-09-13 13:29 | HO.WOUND ---
Wound Consult: Initial 85 yr old [place] [facility] [place] See progress notes and H&P for detailed history. Wound consult placed for sacral wound. Patient agreeable to assessment and photo documentation. seen with direct care RN at bedside. Coccyx and bilateral buttocks Etiology: Coccyx deep tissue pressure injury Present on Admission Bilateral buttocks with MASD Wound Bed: coccyx- intact deep maroon/purple discoloration, area of open wound that is full thickness moist pink - deep tissue pressure injury declaring - appears to be over pale pink scar tissue bilateral buttocks with intact pink and blanching areas likely MASD in the setting of incontinence Drainage / Odor: scant no odor Edges: ? open Kevin wound: ? No Induration, Fluctuance or Warmth noted Pain: none Goals of Treatment: ? triad paste to provide an occlusive dressing for autolytic debridment, to allow moist wound healing with absorption of mild exudate, to minimize contamination of urine/stool or bacteria, and to soothe and protect kevin wound skin, cover with foam Left heel- history of pressure injury - now appears healed with area of adherent dry callus - surrounding skin is intact, red and blanching - recommend preventative measures with foam and offloading right heel intact pink and blanching Recommendations: 1. Turn and Reposition every 2 hours and as needed for patient comfort. Use pillows or wedges to support off loading positions. 2. Off Load all bony prominences with use of pillows and heel boots if needed. Apply Preventative foams where needed. 3. Monitor for incontinence and moisture control, use barrier creams when needed for prevention and treatment. 4. Provide adequate and supplemental nutrition. 5. Order or Continue low air loss mattress. 6. When applicable maintain blood glucose levels per Providers order. Coccyx: Off Load Pressure with Q2 hr turns and use of pillows - Cleanse with PH balance spray or wipes, pat dry. ?Apply thin layer of Triad to wound bed. Do not remove all of paste between applications as this may cause further skin damage.? Cover with foam dressing to aid in off loading and protection from friction. Change every other day and PRN. Bilateral Heels - Elevate heels off of bed surface with pillows. Float heels off of pillows. Apply skin prep allow to dry. Apply heel foam dressings, peel back and assess Q shift and change every 3-5 days and PRN. Re-consult wound care Nurse for wound deterioration or wound changes.
--- NOTE | 2025-09-13 14:04 | PC.NURSE ---
assumed care at 0700, pt is on RA nonlabored breathing, SR on tele, very lethargic, sedated, responses to light pain only unable to further follow commands, L arm contracted and stiffness to thuy legs noted. pt woke up intermittently and crying, moaning, unable to answer any questions from this contract writer and fall back to sleep. MRi form completed with daughter HCP via phone this morning at 10AM. Pt completed her brain MRI this noon time and result came back to be positive for stroke, MD Rausch made aware, no new order at this time, cont to monitor
--- NOTE | 2025-09-13 14:19 | MHC.SLORD ---
Addendum entered and electronically signed by Jazz Nicole MS, CCC-HAIRSPRING II INSPECTOR 09/13/25 16:02: Pt is on hospice with [facility]. Original Note: Speech Language Pathology Order Status: Pt is an 85 y/o F with PMH dementia and seizures. Head CT non-acute with moderate atrophylike changes in white matter . RN consulted, pt is non-verbal, not opening eyes, only raising eyebrows in response to voice/sternal rub. Pt remains NPO pending clinical bedside swallow evaluation.
[2025-09-13 15:38] LABS: Cholesterol 279 mg/dL (<200); HDL Cholesterol 38 mg/dL (>40); Triglycerides 128 mg/dL (<150)
[2025-09-13 16:00] VITALS: BP 138/113; PULSE 113; RESP 20; TEMP 36.1
[2025-09-13 17:36] LABS: Cannabinoid Screen Urine POSITIVE (Not Detect)
[2025-09-13 19:19] VITALS: BP 112/68; PULSE 79; RESP 15; TEMP 36.7; O2SAT 95
[2025-09-13 23:44] VITALS: BP 156/90; PULSE 61; RESP 18; TEMP 36.6; O2SAT 98
[2025-09-14] MEDS: Lactated Ringers 1,000 ML 100 ML IVCONT ×3 (02:05→18:36)
[2025-09-14 03:18] VITALS: BP 140/93; PULSE 77; RESP 17; TEMP 37.1; O2SAT 93
--- NOTE | 2025-09-14 05:11 | PC.NURSE ---
assumed care of patient at 0300. upon entering room, patient moaning loudly and attempting to mumble words. Patient vital signs within normal range and respirations remain even and unlabored. upon visual inspection. mouth is notably dry and lips appear crusted . Oral care preformed on patient with mouth swabs. mouth moisturizer applied. Patient then went back to resting comfortably in bed, respirations remain equal and unlabored. while preforming neuro check, patient noted to be frequently scrunching eyebrows. patient does not follow commands or answer questions but remains arousable to name with eyes opening, but eyes do not track movement. L pupil 2mm while right is 3mm. Both pupils constrict to light. when asked to move legs, RN did feel movement to toes on R foot, but nowhere else. L arm/hand contracted. R arm able to be moved out of contracted position by RN, but returns to contracted position immediately after. Saliva noted to be coming out of patient's mouth. Patient repositioned upright to prevent aspiration. ANABELA orientation or comprehension ability.
[2025-09-14 07:42] VITALS: BP 114/66; PULSE 68; RESP 16; TEMP 37; O2SAT 97
[2025-09-14 08:07] LABS: Hematocrit 41.2 % (37.0-47.0); Hemoglobin 13.9 g/dl (12.0-16.0); Imm Gran Abs Auto 0.03 X10*3/uL (0.00-0.03); Imm Gran Pct Auto 0.5 % (0.0-0.4); Lymphocytes Absolute Auto 1.4 X10*3/uL (1.2-4.9); Mean Corpuscular HGB Conc 33.7 g/dl (31.0-35.0); Mean Corpuscular Hemoglobin 31.7 pg (27.0-33.0); Mean Corpuscular Volume 93.8 fL (80.0-98.0); NRBC Abs Auto 0.000 X10*3/uL (0.0-0.012); NRBC Pct Auto 0.0 /100WBC (0.0-0.2); Red Blood Count 4.39 X10*6/uL (4.20-5.50)
[2025-09-14 08:08] LABS: MANUAL DIFF FLAG NO; White Blood Count 5.7 X10*3/uL (4.8-10.8)
[2025-09-14 08:34] LABS: Anion Gap 13 (12-20); Blood Urea Nitrogen 10 mg/dL (9-16); Calcium 9.0 mg/dL (8.4-10.2); Carbon Dioxide 22 mmol/L (22-29); Chloride 110 mmol/L (96-108); Creatinine Clr Calc Pharmacy 97.4; Estimated Glomerular Filt Rate > 60; Magnesium 1.9 mg/dL (1.6-2.6); Potassium 3.4 mmol/L (3.3-5.1); Sodium 142 mmol/L (135-145)
[2025-09-14] MEDS: levETIRAcetam in NaCl (iso-os) 500 MG/100 ML PIGGYBACK 400 MG IV ×2 (11:17→22:45)
[2025-09-14 11:30] VITALS: BP 139/70; PULSE 73; RESP 16; O2SAT 96
--- NOTE | 2025-09-14 13:55 | MHC.SL.SWA ---
Speech Pathologist Impression: Severe oropharyngeal dysphagia Risk of Aspiration Due to: S/p stroke Dysphasia Diet Status: Recommend CONTINUE NPO Liquid Consistency and Strategies for Safe Swallow: Liquid Intake Recommendation: NPO Liquid Intake Strategies: Solid Food Consistency: Dietary Recommendations: NPO Additional Modifications to Solid Foods: Oral Medication Intake: NPO Please contact the pharmacy regarding appropriate crushable or liquid drug formulations that are available whenever modified delivery is recommended. Compensatory Strategies and Precautions to be Taken for Safe Swallow: Supervision While Eating and Drinking for Safe Swallow: PO with CHEESEMAKER Foods to Avoid: Swallowing Recommended Treatments: Compensatory strategies Recommendation for Speech: Inpatient Speech Therapy Speech Therapy through Rehab Facility Comment: Patient with severe oropharyngeal dysphagia. Oral care completed this date and minimal amount of thin liquids given via teaspoon. Per RN, patient not initiating swallow, could not feel pharyngolaryngeal elevation upon palpation of swallow. Patient able to open mouth and accept oral care. Entirety of thin liquids anteriorly escaping L side. Weak labial seal, patient noted to not be able to manage secretions. Gag reflex present and timely. No initiation of swallow noted this date. Speech assessed informally; severe expressive aphasia and apraxia. Patient with physical groping; able to repeat hi from daughter. Unable to repeat yes no. Unable to perform any automatic sequences this date. Patient raising eyebrow, smiling and laughing. Labial retraction adequate and symmetric. Per family, patient with daily improvements. Educated family over recommendations and POC; in agreement. Recommend CONTINUE NPO. Encourage oral care/use of moist swabs. Recommendations communicated with RN, MD, and RD via secure chat. CHEESEMAKER to follow. Frequency/Duration: M-F Daily Date Range for Service Req: Timeline to reassess: Welfare Worker Clinican/Clinical Fellow: No Supervisory Statement: I have reviewed and agree with the student/clinical fellow's documentation: N/A Speech Language Pathologist: Madalyn Norwood M.A., CCC-CHEESEMAKER
--- NOTE | 2025-09-14 14:06 | P.PNIM_ITS ---
Subjective Subjective Date of Service: 09/14/25 Interval History: Patient seen examined at bedside this morning, patient today is awake and alert, however continues to be poorly verbal, blood cultures positive for coagulase negative Staphylococcus in 2/2 bottles. On labs no leukocytosis, UDS positive for benzos and marijuana, brain MRI with acute nonhemorrhagic ischemic stroke of left thalamus, white matter disease. Review of Systems Review of Systems: Yes all other systems are reviewed and are negative Physical Exam 2 Exam: Exam: General: Alert, opens eyes Head: AT/NC ENT: moist mucous membranes Neck: supple CVS; RRR, S1 S2 normal Lungs: Clear bilateral breath sounds, no wheezes or crackles Abd: Soft non tender, non distended Ext: Left upper extremity contracture MSK: moving all 4 limbs Skin: Senile purpura, sacral ulcer Psych: UTO Neurology: UTO Vital Signs: Vital Signs: Last Vital Signs Temp 98.6 F 09/14/25 07:42 Pulse 73 09/14/25 11:30 Resp 16 09/14/25 11:30 BP 139/70 09/14/25 11:30 Pulse Ox 96 09/14/25 11:30 O2 Del Method Room Air 09/14/25 11:30 BMI result Body Mass Index 26.3 Objective Data Active Medications Acetaminophen (Acetaminophen 325 Mg Tablet) 650 mg PO Q6H PRN PRN Reason: Pain, Mild 1-3,fever,headache Aspirin (Aspirin 81 Mg Tab.Chew) 81 mg PO DAILY [facility] Last Admin: 09/14/25 11:04 Dose: Not Given Documented By: JOHN Non-Admin Reason: NPO pending speech eval Atorvastatin Calcium (Atorvastatin Calcium 40 Mg Tablet) 40 mg PO DAILY [facility] Last Admin: 09/14/25 11:04 Dose: Not Given Documented By: JOHN Non-Admin Reason: NPO pending speech eval Calcium Carbonate (Calcium Carbonate 750 Mg Tab.Chew) 750 mg PO Q4H PRN PRN Reason: Heartburn Diazepam (Diazepam 10 Mg/2 Ml Cartridge) 10 mg IVPUSH Q4H PRN PRN Reason: Seizures Lactated Ringer's (Lr) 1,000 mls @ 100 mls/hr IVCONT .Q10H [facility] Last Admin: 09/14/25 12:30 Dose: 100 mls/hr Documented By: JOHN Levetiracetam (Keppra) 500 mg in 100 mls @ 400 mls/hr IV Q12H [facility] Last Infusion: 09/14/25 11:32 Dose: Infused Documented By: JOHN Vancomycin HCl (Vancomycin/Ns) 2,000 mg in 500 mls @ 250 mls/hr IV ONCE ONE Stop: 09/14/25 15:59 Magnesium Hydroxide (Milk Of Magnesia 30 Ml Oral.Susp) 30 ml PO DAILY PRN PRN Reason: Constipation Melatonin (Melatonin 3 Mg Tablet) 6 mg PO BEDTIME PRN PRN Reason: Insomnia Pantoprazole Sodium (Pantoprazole Sodium 40 Mg/10 Ml Vial) 40 mg IVPUSH DAILY@0630 [facility] Last Admin: 09/14/25 06:00 Dose: 40 mg Documented By: GLENROY Pharmacy Consult (Consult Rx Vancomycin Dosing) 1 each MISCELLANE DAILY PRN PRN Reason: Consult order Sodium Chloride (0.9 % Sodium Chloride Flush 3 Ml Syringe) 3 ml IVFLUSH QSHIFT [facility] Last Admin: 09/14/25 09:31 Dose: Not Given Documented By: JOHN Non-Admin Reason: IV Running Labs 09/14/25 07:51 09/14/25 07:51 Labs: Laboratory Results - last 24 hr 09/13/25 09/13/25 09/14/25 08:04 17:05 07:51 MCV 93.8 MCH 31.7 MCHC 33.7 RDW 13.0 Plt Count TNP MPV TNP Immature Gran % (Auto) 0.5 H Neut % (Auto) 64.3 Lymph % (Auto) 24.9 Fleming % (Auto) 8.9 Eos % (Auto) 0.9 Baso % (Auto) 0.5 Lymph # (Auto) 1.4 Fleming # (Auto) 0.5 Eos # (Auto) 0.1 Baso # (Auto) 0.0 Abs Immat Gran (auto) 0.03 Absolute Neuts (auto) 3.7 Absolute Nucleated RBC 0.000 Nucleated RBC % (auto) 0.0 Anion Gap 13 Estim Creat Clear Calc 97.4 Estimated GFR > 60 Random Glucose 72 Calcium 9.0 Magnesium 1.9 Triglycerides 128 Cholesterol 279 H LDL Cholesterol, Calc 216 H HDL Cholesterol 38 L Urine Opiates Screen Not Detected Ur Buprenorphine Scrn Not Detected Ur Oxycodone Screen Not Detected Urine Methadone Screen Not Detected Urine Fentanyl Screen Not Detected Ur Barbiturates Screen Not Detected Ur Phencyclidine Scrn Not Detected Ur Amphetamines Screen Not Detected U Benzodiazepines Scrn POSITIVE H Urine Cocaine Screen Not Detected U Marijuana (THC) Screen POSITIVE H Microbiology Microbiology Results: Microbiology 09/12/25 15:58 Blood Culture - Preliminary Blood - Venous Coag negative Staphylococcus 09/12/25 15:58 Blood Culture - Preliminary Blood - Venous Coag negative Staphylococcus Assessment and Plan (1) Decubitus ulcer, stage III: Status: Acute (2) Seizure disorder: Status: Acute (3) Bacteremia: Status: Acute Plan Assessment: 85-year-old female who presented to hospital after witnessed seizure not relieved by Valium given by EMS, received 5 mg dose of Valium in hospital. At this time admitted for encephalopathy and new onset seizures. with blood cultures growing GPC on 2/2 bottles. Impression Toxic metabolic encephalopathy, likely multifactorial in the setting of recent Valium, seizure, stroke and bacteremia Stroke Bacteremia, secondary to coagulase negative bacteria 2/2 bottles New onset seizure Lactic acidosis, likely multifactorial in setting of dehydration and bacteremia Elevated troponin, likely in the setting of dehydration Dementia, not on home medications Stage III decubitus ulcer Ambulatory dysfunction, bed-bound at baseline Plan CT and labs reviewed Blood cultures growing gram positive coagulase negative bacteria in 2/2 Will initiate aspirin and statin for secondary stroke prevention Status post Valium and Keppra loading dose, continue Keppra 500 mg b.i.d. IV given patient's NPO status, p.r.n. Valium ordered. Continue with LR at 100 mL/hour Will switch from IV ceftriaxone to IV vancomycin given coagulaste negative bacteria in 2/2 bottles Per son, patient only taking tylenol as outpatient Telemetry Neurology and ID consulted Wound care consulted for stage III decubitus ulcer, offloading q.2 hours At this time we will place SCDs, DVT prophylaxis given recent CVA FEN: LR, replete as needed, NPO mentation improving Gi PPx: Protonix 40 mg IV DVT PPX: SCDs Code status: DNR/DNI Total time managing care of this patient today: 55 minutes. Quality Stroke Does the patient have a stroke diagnosis?: No VTE Prior VTE?: No VTE Risk Level:: Medical - moderate - high VTE Device Contraindication: N/A - Device Ordered VTE Drug Contraindication: Treatment Not Indicated
--- NOTE | 2025-09-14 15:30 | W.PM.IDCN ---
History of Present Illness Data of Consult Service Date: 09/14/25 Requesting physician: Luis Alberto Alvarenga Primary Care Provider: Unknown Physician HPI Reason for consult: coagulase negative staph bacteremia She was brought in by family with new onset seizure. She had reported tonic clonic motions and staccato gaze eyes She has PAD as well Review of Systems Review of Systems: Yes Unobtainable due to mental status PMFSH Past Medical History Medical History Obesity (BMI 30-39.9) Dementia with behavioral problem Delirium due to another medical condition PAD (peripheral artery disease) Dementia Paroxysmal atrial fibrillation Peripheral neuropathy TIA (transient ischemic attack) Foot drop Carotid artery stenosis Afib Hyperlipidemia Anemia Hypertension Family History Family history: reviewed and not pertinent Surgical History Surgical History S/P aortogram with runoff H/O foot surgery History of bilateral knee replacement H/O tubal ligation History of cholecystectomy H/O endarterectomy Social History Social History Household Members: Family Household Members Other:: pt states home with son and also states snf so unsure Housing: House Alcohol intake: former Comment: as per previous Patient Tobacco Use Status: Never used Tobacco Advance Directives Date on File: 01/13/24 service: No Meds Allergies Allergy/AdvReac Type Severity Reaction Status Date / Time gentamicin (GENTAMICIN) Allergy Intermediate SWELLING Verified 09/12/25 11:59 sulfamethoxazole (From Allergy Intermediate RASH Verified 09/12/25 11:59 BACTRIM) trimethoprim (From BACTRIM) Allergy Intermediate RASH Verified 09/12/25 11:59 Active Medications: Current Medications Acetaminophen (Acetaminophen 325 Mg Tablet) 650 mg PO Q6H PRN PRN Reason: Pain, Mild 1-3,fever,headache Aspirin (Aspirin 81 Mg Tab.Chew) 81 mg PO DAILY [facility] Last Admin: 09/14/25 11:04 Dose: Not Given Atorvastatin Calcium (Atorvastatin Calcium 40 Mg Tablet) 40 mg PO DAILY [facility] Last Admin: 09/14/25 11:04 Dose: Not Given Calcium Carbonate (Calcium Carbonate 750 Mg Tab.Chew) 750 mg PO Q4H PRN PRN Reason: Heartburn Diazepam (Diazepam 10 Mg/2 Ml Cartridge) 10 mg IVPUSH Q4H PRN PRN Reason: Seizures Lactated Ringer's (Lr) 1,000 mls @ 100 mls/hr IVCONT .Q10H [facility] Last Admin: 09/14/25 12:30 Dose: 100 mls/hr Levetiracetam (Keppra) 500 mg in 100 mls @ 400 mls/hr IV Q12H [facility] Last Infusion: 09/14/25 11:32 Dose: Infused Vancomycin HCl (Vancomycin/Ns) 2,000 mg in 500 mls @ 250 mls/hr IV ONCE ONE Stop: 09/14/25 15:59 Magnesium Hydroxide (Milk Of Magnesia 30 Ml Oral.Susp) 30 ml PO DAILY PRN PRN Reason: Constipation Melatonin (Melatonin 3 Mg Tablet) 6 mg PO BEDTIME PRN PRN Reason: Insomnia Pantoprazole Sodium (Pantoprazole Sodium 40 Mg/10 Ml Vial) 40 mg IVPUSH DAILY@0630 [facility] Last Admin: 09/14/25 06:00 Dose: 40 mg Pharmacy Consult (Consult Rx Vancomycin Dosing) 1 each MISCELLANE DAILY PRN PRN Reason: Consult order Sodium Chloride (0.9 % Sodium Chloride Flush 3 Ml Syringe) 3 ml IVFLUSH QSHIFT [facility] Last Admin: 09/14/25 09:31 Dose: Not Given Home Medications ?Medication ?Instructions ?Recorded ?Confirmed ?Last Taken ?Type acetaminophen 500 mg tablet 1,000 mg PO Q4H PRN Fever Or Pain 01/16/24 09/12/25 05/14/24 08:30 History Physical Exam Vital Signs: Vital Signs: Last Vital Signs Temp 98.6 F 09/14/25 07:42 Pulse 73 09/14/25 11:30 Resp 16 09/14/25 11:30 BP 139/70 09/14/25 11:30 Pulse Ox 96 09/14/25 11:30 O2 Del Method Room Air 09/14/25 11:30 BMI result Body Mass Index 26.3 Neuro: Other: staccato eye movements to left otherwise somnolent Results Labs 09/14/25 07:51 09/14/25 07:51 Labs: Short CBC 09/14/25 Range/Units 07:51 WBC 5.7 (4.8-10.8) X10*3/uL Hgb 13.9 (12.0-16.0) g/dl Hct 41.2 (37.0-47.0) % Plt Count TNP BMP 09/14/25 07:51 Sodium 142 Potassium 3.4 Chloride 110 H Carbon Dioxide 22 BUN 10 Creatinine 0.48 L Calcium 9.0 Microbiology Microbiology Results: Microbiology 09/12/25 15:58 Blood - Venous Blood Culture - Preliminary Coag negative Staphylococcus 09/12/25 15:58 Blood - Venous Blood Culture - Preliminary Coag negative Staphylococcus Assessment and Plan (1) Bacteremia: Status: Acute Plan There are no signs of sepsis Coagulase negative staph is contaminant Would stop Vancomycin Prognosis guarded
[2025-09-14 15:57] VITALS: BP 131/59; PULSE 80; RESP 16; O2SAT 96
[2025-09-14] MEDS: vancomycin/NS 2,000 MG/500 ML PLAST..BAG 250 MG IV (16:04)
[2025-09-14 20:00] VITALS: BP 142/95; PULSE 88; RESP 20; TEMP 36.3; O2SAT 96
[2025-09-14] MEDS: 0.9 % Sodium Chloride Flush 3 ML SYRINGE IVFLUSH (22:47)
[2025-09-14 23:51] VITALS: BP 165/111; PULSE 85; RESP 14; TEMP 36; O2SAT 99
[2025-09-15 03:14] VITALS: BP 174/75; PULSE 77; RESP 16; TEMP 36.2; O2SAT 99
[2025-09-15] MEDS: Lactated Ringers 1,000 ML 100 ML IVCONT (04:39)
[2025-09-15 08:00] VITALS: BP 166/101; PULSE 91; RESP 21; TEMP 36.5; O2SAT 97
[2025-09-15] MEDS: 0.9 % Sodium Chloride Flush 3 ML SYRINGE IVFLUSH ×3 (08:16→23:53)
[2025-09-15 09:15] LABS: MANUAL DIFF FLAG NO
[2025-09-15 09:17] LABS: Hematocrit 42.5 % (37.0-47.0); Hemoglobin 14.9 g/dl (12.0-16.0); Imm Gran Abs Auto 0.03 X10*3/uL (0.00-0.03); Imm Gran Pct Auto 0.4 % (0.0-0.4); Lymphocytes Absolute Auto 0.8 X10*3/uL (1.2-4.9); Mean Corpuscular HGB Conc 35.1 g/dl (31.0-35.0); Mean Corpuscular Hemoglobin 31.4 pg (27.0-33.0); Mean Corpuscular Volume 89.7 fL (80.0-98.0); NRBC Abs Auto 0.000 X10*3/uL (0.0-0.012); NRBC Pct Auto 0.0 /100WBC (0.0-0.2); Platelet Count 161 X10*3/uL (160-400); Red Blood Count 4.74 X10*6/uL (4.20-5.50); White Blood Count 7.7 X10*3/uL (4.8-10.8)
[2025-09-15 09:42] LABS: Anion Gap 18 (12-20); Blood Urea Nitrogen 5 mg/dL (9-16); Calcium 8.6 mg/dL (8.4-10.2); Carbon Dioxide 21 mmol/L (22-29); Chloride 102 mmol/L (96-108); Creatinine Clr Calc Pharmacy 114.1; Estimated Glomerular Filt Rate > 60; Magnesium 1.5 mg/dL (1.6-2.6); Potassium 2.9 mmol/L (3.3-5.1); Sodium 138 mmol/L (135-145)
--- NOTE | 2025-09-15 09:52 | P.PNIM_ITS ---
Subjective Subjective Date of Service: 09/15/25 Interval History: Seen in f/u for stroke, Stap epi bacteremia and dysphagia. Daughter at Bedside, she is signficantly more drowsy, not communicating, mouth droop and not able to swallow, having failed swallow evals Review of Systems Review of Systems: Yes all other systems are reviewed and are negative Physical Exam 2 Exam: Exam: General: Alert, not conversing, not following direction ENT: moist mucous membranes CVS; RRR, S1 S2 normal Lungs: Clear bilateral breath sounds, no wheezes or crackles Abd: Soft non tender, non distended Ext: Left upper extremity contracture MSK: moving all 4 limbs Skin: Senile purpura, sacral ulcer Psych: UTO Neurology: difficult to assess, as not able to follow commands Vital Signs: Vital Signs: Last Vital Signs Temp 97.7 F 09/15/25 08:00 Pulse 91 09/15/25 08:00 Resp 21 H 09/15/25 08:00 BP 166/101 H 09/15/25 08:00 Pulse Ox 97 09/15/25 08:00 O2 Del Method Room Air 09/15/25 08:00 BMI result Body Mass Index 26.3 Objective Data Active Medications Acetaminophen (Acetaminophen 325 Mg Tablet) 650 mg PO Q6H PRN PRN Reason: Pain, Mild 1-3,fever,headache Aspirin (Aspirin 81 Mg Tab.Chew) 81 mg PO DAILY [facility] Last Admin: 09/15/25 08:14 Dose: Not Given Documented By: LEEANNE Non-Admin Reason: NPO Atorvastatin Calcium (Atorvastatin Calcium 40 Mg Tablet) 40 mg PO DAILY [facility] Last Admin: 09/15/25 08:14 Dose: Not Given Documented By: LEEANNE Non-Admin Reason: NPO Calcium Carbonate (Calcium Carbonate 750 Mg Tab.Chew) 750 mg PO Q4H PRN PRN Reason: Heartburn Diazepam (Diazepam 10 Mg/2 Ml Cartridge) 10 mg IVPUSH Q4H PRN PRN Reason: Seizures Levetiracetam (Keppra) 500 mg in 100 mls @ 400 mls/hr IV Q12H [facility] Last Infusion: 09/14/25 23:06 Dose: Infused Documented By: EMILIANA Vancomycin HCl 1,000 mg/ (Sodium Chloride) 270 mls @ 270 mls/hr IV Q12H [facility] Last Infusion: 09/15/25 05:44 Dose: Infused Documented By: EMILIANA Lactated Ringer's (Lr) 1,000 mls @ 100 mls/hr IVCONT .Q10H [facility] Last Admin: 09/15/25 04:39 Dose: 100 mls/hr Documented By: EMILIANA Potassium Chloride (Potassium Chloride/H20) 10 meq in 100 mls @ 100 mls/hr IV Q1H [facility] Stop: 09/15/25 11:59 Magnesium Hydroxide (Milk Of Magnesia 30 Ml Oral.Susp) 30 ml PO DAILY PRN PRN Reason: Constipation Melatonin (Melatonin 3 Mg Tablet) 6 mg PO BEDTIME PRN PRN Reason: Insomnia Pantoprazole Sodium (Pantoprazole Sodium 40 Mg/10 Ml Vial) 40 mg IVPUSH DAILY@0630 [facility] Last Admin: 09/15/25 05:22 Dose: 40 mg Documented By: EMILIANA Pharmacy Consult (Consult Rx Vancomycin Dosing) 1 each MISCELLANE DAILY PRN PRN Reason: Consult order Sodium Chloride (0.9 % Sodium Chloride Flush 3 Ml Syringe) 3 ml IVFLUSH QSHIFT [facility] Last Admin: 09/15/25 08:16 Dose: 3 ml Documented By: LEEANNE Labs 09/15/25 09:01 09/15/25 09:01 Labs: Laboratory Results - last 24 hr 09/15/25 09:01 MCV 89.7 MCH 31.4 MCHC 35.1 H RDW 12.6 Plt Count 161 MPV 12.4 H Immature Gran % (Auto) 0.4 Neut % (Auto) 81.6 H Lymph % (Auto) 10.2 L Gaines % (Auto) 6.7 Eos % (Auto) 0.6 Baso % (Auto) 0.5 Lymph # (Auto) 0.8 L Gaines # (Auto) 0.5 Eos # (Auto) 0.1 Baso # (Auto) 0.0 Abs Immat Gran (auto) 0.03 Absolute Neuts (auto) 6.3 Absolute Nucleated RBC 0.000 Nucleated RBC % (auto) 0.0 Anion Gap 18 Estim Creat Clear Calc 114.1 Estimated GFR > 60 Random Glucose 89 Calcium 8.6 Magnesium 1.5 L Microbiology Microbiology Results: Microbiology 09/12/25 15:58 Blood Culture - Preliminary Blood - Venous Coag negative Staphylococcus 09/12/25 15:58 Blood Culture - Preliminary Blood - Venous Coag negative Staphylococcus Assessment and Plan (1) Decubitus ulcer, stage III: Status: Acute (2) Seizure disorder: Status: Acute (3) Bacteremia: Status: Acute Plan 85-year-old female with history of AFib not on anticoagulation, who presented to hospital after witnessed seizure not relieved by Valium given by EMS, received 5 mg dose of Valium in hospital, work up ultimately revealed a left thalamic acute stroke, complicated by dysphagia, aphasia, abd staph epi bacteremia. Acute ischemic stroke Toxic metabolic encephalopathy, likely multifactorial related benzo use, seizure, stroke and and bacteremia -addresing underlying issues. Acute stroke with dysphagia, aphagia ASA, statin, PT/OT, speech progosis is poor Dysphagia relate to above CHANGE MANAGEMENT ANALYST following, NPO, IVF, discussing Gtube with daughter, and also will discuss hospice Staph Epi bacteremia from 09/12, likely contamination repeat cultures today ID recommends stopping Vanco Seizure continue Keppra Stage 3 decub ulcer, POA wound care following Frequent turning and other preventative measure per protocol Hypokalemia, IV K replacment Hypomagnesemia, IV Mag FEN: LR, replete as needed, NPO mentation improving Gi PPx: Protonix 40 mg IV DVT PPX: SCDs, heparin added Code status: DNR/DNI Goals of care conversation to be have with daughter listed as HCP Total time managing care of this patient today: 55 minutes. Quality Stroke Does the patient have a stroke diagnosis?: No VTE Prior VTE?: No VTE Risk Level:: Medical - moderate - high VTE Device Contraindication: N/A - Device Ordered VTE Drug Contraindication: Treatment Not Indicated
--- NOTE | 2025-09-15 11:43 | MHC.SL.SWA ---
Speech Pathologist Impression: Severe oropharyngeal dysphagia Risk of Aspiration Due to: Severe oropharyngeal deficits in both swallowing and motor speech production Generalized weakness Reduced cognition Hx of dysphagia and dysarthria Dysphasia Diet Status: NPO strict, oral care Liquid Consistency and Strategies for Safe Swallow: Liquid Intake Recommendation: NPO Liquid Intake Strategies: Solid Food Consistency: Dietary Recommendations: NPO Additional Modifications to Solid Foods: Oral Medication Intake: NPO Please contact the pharmacy regarding appropriate crushable or liquid drug formulations that are available whenever modified delivery is recommended. Compensatory Strategies and Precautions to be Taken for Safe Swallow: Supervision While Eating and Drinking for Safe Swallow: PO with CHRONIC MANAGER Foods to Avoid: Swallowing Recommended Treatments: Compens. Strategy Educat. Recommendation for Speech: Inpatient Speech Therapy Speech Therapy through Rehab Facility Comment: Pt seen for repeat clinical bedside swallow. Daughter at bedside, education provided. Pt presents with severe dysarthria characterized by apraxia: inability to elicit voice beyond brief whisper, poor labial closure, limited tongue and jaw mobility and visible groping. Pt daughter reports pt has spontaneously produced some speech, again characteristic of 'islands of clear speech' in Apraxia. Thermal/tactile/gustatory stim administered, with slight improvements in oropharyngeal coordination. Minimal trials of 1/4 tsp of applesauce provided twice, but pt unable to achieve anterior to posterior transit of bolus and trigger of pharyngeal swallow. Laryngeal elevation reduced upon trigger. Pt considered at high risk for aspiration d/t significance of motor speech deficits and dysphagia. MD and RN consulted. CHRONIC MANAGER recc alternative nutrition, with consideration of termite renewal inspector care needs (comfort measures vs PEG). Pt daughter in agreement, anticipates speaking with MD, CM and family in making decisions. Frequency/Duration: M-F Daily Date Range for Service Req: Timeline to reassess: Director Of Intelligence Clinican/Clinical Fellow: No Supervisory Statement: I have reviewed and agree with the student/clinical fellow's documentation: N/A Speech Language Pathologist: Jazz Nicole M.S., [facility]-CHRONIC MANAGER
[2025-09-15] MEDS: levETIRAcetam in NaCl (iso-os) 500 MG/100 ML PIGGYBACK 400 MG IV ×2 (11:57→23:49)
[2025-09-15 12:00] VITALS: BP 166/83; PULSE 82; RESP 16; TEMP 36.5; O2SAT 97
--- NOTE | 2025-09-15 12:12 | HO.WOUND ---
Wound Consult: Follow up 85 yr old female admitted to [facility] [place] on 09/12/25- See progress notes and H&P for detailed history. Wound consult follow up for sacral wound. Patient agreeable to assessment and photo documentation. Seen during P&I Data collection. Coccyx and bilateral buttocks 09/13/25 09/15/25 - Overall improving periwound and wound bed. Appearance of psuedo slough on wound bed no new topical recommendations needed at this time. Etiology: Coccyx deep tissue pressure injury Present on Admission Bilateral buttocks with MASD Wound Bed: coccyx- intact deep maroon/purple discoloration, area of open wound that is full thickness moist pink - deep tissue pressure injury declaring - appears to be over pale pink scar tissue bilateral buttocks with intact pink and blanching areas likely MASD in the setting of incontinence Drainage / Odor: scant no odor Edges: ? open Kevin wound: ? No Induration, Fluctuance or Warmth noted Pain: none Goals of Treatment: ? triad paste to provide an occlusive dressing for autolytic debridment, to allow moist wound healing with absorption of mild exudate, to minimize contamination of urine/stool or bacteria, and to soothe and protect kevin wound skin, cover with foam Left heel- unchanged - history of pressure injury - now appears healed with area of adherent dry callus - surrounding skin is intact, red and blanching - recommend preventative measures with foam and offloading right heel intact pink and blanching Recommendations: 1. Turn and Reposition every 2 hours and as needed for patient comfort. Use pillows or wedges to support off loading positions. 2. Off Load all bony prominences with use of pillows and heel boots if needed. Apply Preventative foams where needed. 3. Monitor for incontinence and moisture control, use barrier creams when needed for prevention and treatment. 4. Provide adequate and supplemental nutrition. 5. Order or Continue low air loss mattress. 6. When applicable maintain blood glucose levels per Providers order. Coccyx: Off Load Pressure with Q2 hr turns and use of pillows - Cleanse with PH balance spray or wipes, pat dry. ?Apply thin layer of Triad to wound bed. Do not remove all of paste between applications as this may cause further skin damage.? Cover with foam dressing to aid in off loading and protection from friction. Change every other day and PRN. Bilateral Heels - Elevate heels off of bed surface with pillows. Float heels off of pillows. Apply skin prep allow to dry. Apply heel foam dressings, peel back and assess Q shift and change every 3-5 days and PRN. Re-consult wound care Nurse for wound deterioration or wound changes.
[2025-09-15] MEDS: Potassium Chloride/H20 10 MEQ/100 ML PIGGYBACK 100 MEQ IV ×2 (12:37→13:59)
[2025-09-15] MEDS: KCl 20 mEq in 5 % Dex/Lact Rin 20 MEQ/1,000 ML IV.SOLN 100 MEQ IVCONT (14:08)
--- NOTE | 2025-09-15 14:26 | MHC.CLN ---
F/U STRICT NPO PER SENIOR RESEARCH SCIENTIST REC. PATIENT WITH ACUTE ISCHEMIC STROKE AND UNABLE TO SWALLOW. SKIN WITH DTI TO COCCYX PER WOUND RN. FOLLOW FOR PLAN OF CARE, PEG VS COMFORT CARE. RD CAN ADDRESS APPROPRIATE TUBE FEEDING IF NEEDED.
--- NOTE | 2025-09-15 14:47 | MHC.CM.PN ---
Per rounds, pt. did not pass swallow eval. MD will discuss next steps with family. CM to follow for DC needs.
[2025-09-15 15:19] VITALS: BP 136/91; PULSE 90; RESP 16; TEMP 36.7; O2SAT 95
[2025-09-15] MEDS: Magnesium Sulfate/H2O 2 GM/50 ML PIGGYBACK IV (16:37)
[2025-09-15 18:43] LABS: Anion Gap 18 (12-20); Carbon Dioxide 21 mmol/L (22-29); Chloride 102 mmol/L (96-108); Magnesium 2.1 mg/dL (1.6-2.6); Potassium 3.3 mmol/L (3.3-5.1); Sodium 138 mmol/L (135-145)
[2025-09-15 19:15] VITALS: BP 119/70; PULSE 77; RESP 16; TEMP 36.6; O2SAT 95
[2025-09-15 23:26] VITALS: BP 90/60; PULSE 68; RESP 16; TEMP 36.9; O2SAT 93
[2025-09-16] VITALS (7 sets, daily range): BP systolic 107–140; BP diastolic 50–94; PULSE 68–88; RESP 16–20; TEMP 36.3–37; O2SAT 93–97
[2025-09-16] MEDS: KCl 20 mEq in 5 % Dex/Lact Rin 20 MEQ/1,000 ML IV.SOLN 100 MEQ IVCONT ×2 (00:05→12:18)
[2025-09-16] MEDS: levETIRAcetam in NaCl (iso-os) 500 MG/100 ML PIGGYBACK 100 MG IV (12:17)
[2025-09-16] MEDS: diazePAM 10 MG/2 ML CARTRIDGE IVPUSH (12:46)
--- NOTE | 2025-09-16 13:36 | P.PNIM_ITS ---
Subjective Subjective Date of Service: 09/16/25 Interval History: Seen in f/u for stroke, dysogia, decrease responsive, not eating, not communicating, she is minimally responsive this morning, and one could not converse with her, spoke to daughter and son Misael yesterday regarding clinical course and prognosis which doesn' look good Review of Systems Review of Systems: Yes all other systems are reviewed and are negative Physical Exam 2 Exam: Exam: General: Alert, not conversing, not following direction ENT: moist mucous membranes CVS; RRR, S1 S2 normal Lungs: Clear bilateral breath sounds, no wheezes or crackles Abd: Soft non tender, non distended Ext: Left upper extremity contracture MSK: moving all 4 limbs Skin: Senile purpura, sacral ulcer Psych: UTO Neurology: difficult to assess, as not able to follow commands Vital Signs: Vital Signs: Last Vital Signs Temp 98.0 F 09/16/25 12:00 Pulse 88 09/16/25 12:00 Resp 20 09/16/25 12:00 BP 127/94 H 09/16/25 12:00 Pulse Ox 97 09/16/25 12:00 O2 Del Method Room Air 09/16/25 12:00 BMI result Body Mass Index 26.3 Objective Data Active Medications Acetaminophen (Acetaminophen 325 Mg Tablet) 650 mg PO Q6H PRN PRN Reason: Pain, Mild 1-3,fever,headache Aspirin (Aspirin 81 Mg Tab.Chew) 81 mg PO DAILY [facility] Last Admin: 09/16/25 11:52 Dose: Not Given Documented By: TIAGO Non-Admin Reason: NPO Atorvastatin Calcium (Atorvastatin Calcium 40 Mg Tablet) 40 mg PO DAILY [facility] Last Admin: 09/16/25 11:53 Dose: Not Given Documented By: TIAGO Non-Admin Reason: NPO Calcium Carbonate (Calcium Carbonate 750 Mg Tab.Chew) 750 mg PO Q4H PRN PRN Reason: Heartburn Diazepam (Diazepam 10 Mg/2 Ml Cartridge) 10 mg IVPUSH Q4H PRN PRN Reason: Seizures Last Admin: 09/16/25 12:46 Dose: 10 mg Documented By: PRICE Heparin Sodium (Porcine) (Heparin Sodium,Porcine 5,000 Unit/Ml Vial) 5,000 unit SUBCUT Q12H [facility] Last Admin: 09/16/25 12:17 Dose: 5,000 unit Documented By: PRICE Levetiracetam (Keppra) 500 mg in 100 mls @ 400 mls/hr IV Q12H [facility] Last Admin: 09/16/25 12:17 Dose: 100 mls/hr Documented By: PRICE Potassium Cl/Dextrose/Lact Ringer's (Kcl 20 Meq In 5 % Dex/Lact Rin) 20 meq in 1,000 mls @ 100 mls/hr IVCONT .Q10H [facility] Last Admin: 09/16/25 12:18 Dose: 100 mls/hr Documented By: PRICE Magnesium Hydroxide (Milk Of Magnesia 30 Ml Oral.Susp) 30 ml PO DAILY PRN PRN Reason: Constipation Melatonin (Melatonin 3 Mg Tablet) 6 mg PO BEDTIME PRN PRN Reason: Insomnia Sodium Chloride (0.9 % Sodium Chloride Flush 3 Ml Syringe) 3 ml IVFLUSH QSHIFT [facility] Last Admin: 09/16/25 11:52 Dose: Not Given Documented By: TIAGO Non-Admin Reason: IV Running Labs 09/15/25 09:01 09/15/25 17:45 Labs: Laboratory Results - last 24 hr 09/15/25 17:45 Anion Gap 18 Magnesium 2.1 Microbiology Microbiology Results: Microbiology 09/15/25 10:10 Blood Culture - Preliminary Blood - Venous No growth after 24 hours. 09/15/25 10:10 Blood Culture - Preliminary Blood - Venous No growth after 24 hours. 09/12/25 15:58 Blood Culture - Final Blood - Venous Coag negative Staphylococcus 09/12/25 15:58 Blood Culture - Final Blood - Venous Coag negative Staphylococcus Assessment and Plan (1) Decubitus ulcer, stage III: Status: Acute (2) Seizure disorder: Status: Acute (3) Bacteremia: Status: Acute Plan 85-year-old female with history of AFib not on anticoagulation, who presented to hospital after witnessed seizure not relieved by Valium given by EMS, received 5 mg dose of Valium in hospital, work up ultimately revealed a left thalamic acute stroke, complicated by dysphagia, aphasia, abd staph epi bacteremia. 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 Acute stroke with dysphagia, aphagia ASA, statin, PT/OT, speech progosis is poor Staph Epi bacteremia from 09/12, likely contamination repeat cultures 09/15 ID recommends stopping Vanco Seizure continue Keppra Stage 3 decub ulcer, POA wound care following Frequent turning and other preventative measure per protocol Hypokalemia, IV K replacment Hypomagnesemia, IV Mag mag and K corrected FEN: LR, replete as needed, NPO mentation improving Gi PPx: Protonix 40 mg IV DVT PPX: SCDs, heparin added Code status: DNR/DNI Goals of care conversation with family again today Prognosis is poor Total time managing care of this patient today: 55 minutes. Quality Stroke Does the patient have a stroke diagnosis?: No VTE Prior VTE?: No VTE Risk Level:: Medical - moderate - high VTE Device Contraindication: N/A - Device Ordered VTE Drug Contraindication: Treatment Not Indicated
--- NOTE | 2025-09-16 16:34 | PM.EVENT ---
Event Note Date of Service: 09/16/25 Event Note: Discussed goals of care with daughter again and they are leaning towards hospice and comfort care, patient has been having crying spells and morphine given with good effect Time Spent With Patient Time: Total time managing care of this patient today ____ minutes.
--- NOTE | 2025-09-16 18:35 | MHC.SLORD ---
Speech Language Pathology Order Status: ADDICTIONS COUNSELOR unable to see patient this date. Per MD note; family leaning towards hospice/GRANT OFFICER. Will continue to follow.
[2025-09-17] VITALS (8 sets, daily range): BP systolic 107–177; BP diastolic 49–106; PULSE 62–82; RESP 16–20; TEMP 36.2–37.1; O2SAT 93–97
[2025-09-17] MEDS: levETIRAcetam in NaCl (iso-os) 500 MG/100 ML PIGGYBACK 400 MG IV ×3 (00:03→23:05)
[2025-09-17] MEDS: KCl 20 mEq in 5 % Dex/Lact Rin 20 MEQ/1,000 ML IV.SOLN 100 MEQ IVCONT ×3 (00:31→20:08)
--- NOTE | 2025-09-17 06:29 | PC.NURSE ---
Upon initial assessment it was noted that right arm was swollen more than left. DOCK SUPERINTENDENT Law was notified, DOCK SUPERINTENDENT in to see pt. DOCK SUPERINTENDENT orders to elevate extremity. Swelling better after elevation. Arm remains elevated on pillow. Plan of care continues.
--- NOTE | 2025-09-17 09:39 | MHC.CLN ---
F/U CONTINUES NPO SINE 09/12. PATIENT WITH ACUTE ISCHEMIC STROKE AND UNABLE TO SWALLOW. SKIN WITH DTI TO COCCYX. PER PROVIDER NOTE, FAMILY CONSIDERING HOSPICE/COMFORT CARE. FOLLOW FOR PLAN OF CARE.
--- NOTE | 2025-09-17 10:17 | P.PNIM_ITS ---
Subjective Subjective Date of Service: 09/17/25 Interval History: Seen in f/u for stroke, dysogia, decrease responsive, not eating, not communicating, she is minimally responsive this morning, and one could not converse with her, spoke to daughter and son Misael yesterday regarding clinical course and prognosis which doesn' look. No significant improvement overnight Review of Systems Review of Systems: Yes all other systems are reviewed and are negative Physical Exam 2 Exam: Exam: General: Alert, not conversing, not following direction ENT: moist mucous membranes CVS; RRR, S1 S2 normal Lungs: Clear bilateral breath sounds, no wheezes or crackles Abd: Soft non tender, non distended Ext: Left upper extremity contracture MSK: moving all 4 limbs Skin: Senile purpura, sacral ulcer Psych: UTO Neurology: difficult to assess, as not able to follow commands Vital Signs: Vital Signs: Last Vital Signs Temp 98.0 F 09/17/25 08:00 Pulse 80 09/17/25 08:00 Resp 16 09/17/25 08:00 BP 177/74 H 09/17/25 08:00 Pulse Ox 93 09/17/25 08:00 O2 Del Method Room Air 09/17/25 08:00 O2 Flow Rate 98 09/17/25 03:16 BMI result Body Mass Index 26.3 Objective Data Active Medications Acetaminophen (Acetaminophen 325 Mg Tablet) 650 mg PO Q6H PRN PRN Reason: Pain, Mild 1-3,fever,headache Aspirin (Aspirin 81 Mg Tab.Chew) 81 mg PO DAILY [facility] Last Admin: 09/17/25 08:14 Dose: Not Given Documented By: KIMBERLY Non-Admin Reason: NPO Atorvastatin Calcium (Atorvastatin Calcium 40 Mg Tablet) 40 mg PO DAILY [facility] Last Admin: 09/17/25 08:14 Dose: Not Given Documented By: KIMBERLY Non-Admin Reason: NPO Calcium Carbonate (Calcium Carbonate 750 Mg Tab.Chew) 750 mg PO Q4H PRN PRN Reason: Heartburn Diazepam (Diazepam 10 Mg/2 Ml Cartridge) 10 mg IVPUSH Q4H PRN PRN Reason: Seizures Last Admin: 09/16/25 12:46 Dose: 10 mg Documented By: PRICE Heparin Sodium (Porcine) (Heparin Sodium,Porcine 5,000 Unit/Ml Vial) 5,000 unit SUBCUT Q12H [facility] Last Admin: 09/17/25 00:02 Dose: 5,000 unit Documented By: SHERRY Levetiracetam (Keppra) 500 mg in 100 mls @ 400 mls/hr IV Q12H [facility] Last Infusion: 09/17/25 00:32 Dose: Infused Documented By: SHERRY Magnesium Hydroxide (Milk Of Magnesia 30 Ml Oral.Susp) 30 ml PO DAILY PRN PRN Reason: Constipation Melatonin (Melatonin 3 Mg Tablet) 6 mg PO BEDTIME PRN PRN Reason: Insomnia Morphine Sulfate (Morphine Sulfate 4 Mg/Ml Cartridge) 2 mg IVPUSH Q3H PRN; Protocol PRN Reason: Pain, Severe (Pain Scale 7-10) Last Admin: 09/17/25 00:55 Dose: 2 mg Documented By: SHERRY Sodium Chloride (0.9 % Sodium Chloride Flush 3 Ml Syringe) 3 ml IVFLUSH QSHIFT [facility] Last Admin: 09/17/25 08:14 Dose: Not Given Documented By: KIMBERLY Non-Admin Reason: IV Running Labs 09/15/25 09:01 09/15/25 17:45 Labs: Laboratory Results - last 24 hr 09/15/25 17:45 Anion Gap 18 Magnesium 2.1 Microbiology Microbiology Results: Microbiology 09/15/25 10:10 Blood Culture - Preliminary Blood - Venous No growth after 24 hours. 09/15/25 10:10 Blood Culture - Preliminary Blood - Venous No growth after 24 hours. 09/12/25 15:58 Blood Culture - Final Blood - Venous Coag negative Staphylococcus 09/12/25 15:58 Blood Culture - Final Blood - Venous Coag negative Staphylococcus Assessment and Plan (1) Decubitus ulcer, stage III: Status: Acute (2) Seizure disorder: Status: Acute (3) Bacteremia: Status: Acute Plan 85-year-old female with history of AFib not on anticoagulation, who presented to hospital after witnessed seizure not relieved by Valium given by EMS, received 5 mg dose of Valium in hospital, work up ultimately revealed a left thalamic acute stroke, complicated by dysphagia, aphasia, abd staph epi bacteremia. 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 Acute stroke with dysphagia, aphagia ASA, statin, PT/OT, speech progosis is poor Staph Epi bacteremia from 09/12, likely contamination repeat cultures 09/15, negative ID recommends stopping Vanco Seizure continue Keppra Stage 3 decub ulcer, POA wound care following Frequent turning and other preventative measure per protocol Hypokalemia, IV K replacment Hypomagnesemia, IV Mag mag and K corrected FEN: LR, replete as needed, NPO mentation improving Gi PPx: Protonix 40 mg IV DVT PPX: SCDs, heparin added Code status: DNR/DNI Goals of care conversation with family again today, they are leaning towards hospice/comfort carre Prognosis is poor Total time managing care of this patient today: 55 minutes. Quality Stroke Does the patient have a stroke diagnosis?: No VTE Prior VTE?: No VTE Risk Level:: Medical - moderate - high VTE Device Contraindication: N/A - Device Ordered VTE Drug Contraindication: Treatment Not Indicated
--- NOTE | 2025-09-17 15:28 | MHC.CM.PN ---
pt had an imformstional with hospice pts daughter plans on taking her mother to her home when dcd
--- NOTE | 2025-09-17 15:49 | MHC.SL.SWA ---
Speech Pathologist Impression: Severe Oropharyngeal Dysphagia Risk of Aspiration Due to: Severe Dysphagia, Reduced Cognition, Acute CVA Dysphasia Diet Status: Continue NPO Liquid Consistency and Strategies for Safe Swallow: Liquid Intake Recommendation: NPO Solid Food Consistency: Dietary Recommendations: NPO Additional Modifications to Solid Foods: Failed bedside swallow evaluations x3 09/14, 09/15, 09/17- Some improvement when seen today, with increased awareness and more responsive on oral swabbing. Patient pursing lips, chewing swab, and demonstrated some tongue pumping movements, but still with no swallow initiation and total spillage from mouth on trials of trace ice chips/ water, jello, and pudding thick juice. Recommend CONTINUE NPO strict, provide oral care daily for comfort/oral moisture. Patient to be considered for alternative method for nutrition versus comfort care. Per MD, ongoing goals of care conversation with family. Oral Medication Intake: NPO Please contact the pharmacy regarding appropriate crushable or liquid drug formulations that are available whenever modified delivery is recommended. Supervision While Eating and Drinking for Safe Swallow: PO with [employer]FILL GAS TECHNICIAN Swallowing Recommended Treatments: Compens. Strategy Educat. Recommendation for Speech: Inpatient Speech Therapy Speech Therapy through Rehab Facility Frequency/Duration: M-F Daily Date Range for Service Req: Timeline to reassess: Caul Fat Puller Clinican/Clinical Fellow: No Supervisory Statement: I have reviewed and agree with the student/clinical fellow's documentation: N/A Speech Language Pathologist: Fabby Vera M.A., [facility] G[employer] TECHNICIAN
[2025-09-17] MEDS: 0.9 % Sodium Chloride Flush 3 ML SYRINGE IVFLUSH (19:46)
[2025-09-18 03:41] VITALS: BP 139/67; PULSE 66; RESP 17; TEMP 37.1; O2SAT 97
[2025-09-18] MEDS: KCl 20 mEq in 5 % Dex/Lact Rin 20 MEQ/1,000 ML IV.SOLN 100 MEQ IVCONT ×2 (06:02→16:53)
--- NOTE | 2025-09-18 07:44 | P.PNIM_ITS ---
Subjective Subjective Date of Service: 09/18/25 Interval History: Seen and examined this morning. F/up for cva, decreased responsiveness, no p.o. intake Interval history: Minimally responsive, opening her eyes for a 2nd inconsistently. Grimacing with any touch or movement. Does appear comfortable at rest. No PO intake in over one week per family. Review of Systems Review of Systems: Yes Unobtainable due to mental status Physical Exam 2 Exam: Exam: EXAM: Constitutional - minimally response opening eyes inconsistently to touch and name Cardiovascular - S1S2, RRR, No edema Respiratory - Normal lung expansion, Normal respiratory effort, No respiratory distress, CTA bilaterally Abd- soft, nontender, nondistended. BSx4 Extremities - no calf tenderness bilaterally, no swelling Skin - Warm/Dry Neurological - minimally responsive Psychological - Appropriate affect Vital Signs: Vital Signs: Last Vital Signs Temp 98.8 F 09/18/25 03:41 Pulse 66 09/18/25 03:41 Resp 17 09/18/25 03:41 BP 139/67 09/18/25 03:41 Pulse Ox 97 09/18/25 03:41 O2 Del Method Room Air 09/18/25 03:41 O2 Flow Rate 98 09/17/25 03:16 BMI result Body Mass Index 26.3 Objective Data Active Medications Acetaminophen (Acetaminophen 325 Mg Tablet) 650 mg PO Q6H PRN PRN Reason: Pain, Mild 1-3,fever,headache Aspirin (Aspirin 81 Mg Tab.Chew) 81 mg PO DAILY [facility] Last Admin: 09/17/25 08:14 Dose: Not Given Documented By: KIMBERLY Non-Admin Reason: NPO Atorvastatin Calcium (Atorvastatin Calcium 40 Mg Tablet) 40 mg PO DAILY [facility] Last Admin: 09/17/25 08:14 Dose: Not Given Documented By: KIMBERLY Non-Admin Reason: NPO Calcium Carbonate (Calcium Carbonate 750 Mg Tab.Chew) 750 mg PO Q4H PRN PRN Reason: Heartburn Diazepam (Diazepam 10 Mg/2 Ml Cartridge) 5 mg IVPUSH Q4H PRN PRN Reason: anxiety or seizure Heparin Sodium (Porcine) (Heparin Sodium,Porcine 5,000 Unit/Ml Vial) 5,000 unit SUBCUT Q12H [facility] Last Admin: 09/17/25 23:05 Dose: 5,000 unit Documented By: ARTI Levetiracetam (Keppra) 500 mg in 100 mls @ 400 mls/hr IV Q12H [facility] Last Infusion: 09/17/25 23:26 Dose: Infused Documented By: ARTI Potassium Cl/Dextrose/Lact Ringer's (Kcl 20 Meq In 5 % Dex/Lact Rin) 20 meq in 1,000 mls @ 100 mls/hr IVCONT .Q10H [facility] Last Admin: 09/18/25 06:02 Dose: 100 mls/hr Documented By: ARTI Magnesium Hydroxide (Milk Of Magnesia 30 Ml Oral.Susp) 30 ml PO DAILY PRN PRN Reason: Constipation Melatonin (Melatonin 3 Mg Tablet) 6 mg PO BEDTIME PRN PRN Reason: Insomnia Morphine Sulfate (Morphine Sulfate 4 Mg/Ml Cartridge) 2 mg IVPUSH Q3H PRN; Protocol PRN Reason: Pain, Severe (Pain Scale 7-10) Last Admin: 09/18/25 06:00 Dose: 2 mg Documented By: ARTI Sodium Chloride (0.9 % Sodium Chloride Flush 3 Ml Syringe) 3 ml IVFLUSH QSHIFT [facility] Last Admin: 09/17/25 19:46 Dose: 3 ml Documented By: ARTI Labs 09/15/25 09:01 09/18/25 11:20 Microbiology Microbiology Results: Microbiology 09/15/25 10:10 Blood Culture - Preliminary Blood - Venous No growth after 48 hours. 09/15/25 10:10 Blood Culture - Preliminary Blood - Venous No growth after 48 hours. Assessment and Plan (1) Decubitus ulcer, stage III: Status: Acute (2) Seizure disorder: Status: Acute (3) Bacteremia: Status: Acute Plan 85-year-old female with history of AFib not on anticoagulation, who presented to hospital after witnessed seizure not relieved by Valium given by EMS, received 5 mg dose of Valium in hospital, work up ultimately revealed a left thalamic acute stroke, complicated by dysphagia, aphasia, abd staph epi bacteremia. Acute ischemic stroke, complicated aphasia/dysphasia Dysphagia/dysphagia relate to above ORTHOPAEDIC GENERAL following, NPO, IVF, discussed- family is in agreement regarding no g tube Awaiting family decision on direction/goal of care, ie comfort/hospice Toxic metabolic encephalopathy, likely multifactorial related benzo use, seizure, stroke and and bacteremia addresing underlying issues. Acute stroke with dysphagia, aphagia NPO- asa, statin on hold prognosis is poor Staph Epi bacteremia from 09/12, likely contamination repeat cultures 09/15, negative Vanco discontinued per ID recommendations Seizure continue Keppra Stage 3 decub ulcer, POA wound care following Frequent turning and other preventative measure per protocol Hypokalemia, IV K replacment Hypomagnesemia, IV Mag mag and K corrected FEN: LR, replete as needed, NPO mentation improving Gi PPx: Protonix 40 mg IV DVT PPX: SCDs, heparin added Code status: DNR/DNI Goals of care conversation with family again today, they are leaning towards hospice/comfort carre Prognosis is poor Total time managing care of this patient today: 55 minutes. Quality Stroke Does the patient have a stroke diagnosis?: No VTE Prior VTE?: No VTE Risk Level:: Medical - moderate - high VTE Device Contraindication: N/A - Device Ordered VTE Drug Contraindication: Treatment Not Indicated
[2025-09-18 07:54] VITALS: BP 161/77; PULSE 78; RESP 18; TEMP 36.8; O2SAT 97
[2025-09-18] MEDS: levETIRAcetam in NaCl (iso-os) 500 MG/100 ML PIGGYBACK 400 MG IV ×2 (11:20→23:06)
[2025-09-18] MEDS: 0.9 % Sodium Chloride Flush 3 ML SYRINGE IVFLUSH ×2 (11:25→20:17)
[2025-09-18 11:51] LABS: Anion Gap 11 (12-20); Blood Urea Nitrogen 4 mg/dL (9-16); Calcium 9.0 mg/dL (8.4-10.2); Carbon Dioxide 26 mmol/L (22-29); Chloride 109 mmol/L (96-108); Creatinine Clr Calc Pharmacy 114.1; Estimated Glomerular Filt Rate > 60; Potassium 4.0 mmol/L (3.3-5.1); Sodium 142 mmol/L (135-145)
[2025-09-18 11:53] VITALS: BP 180/73; PULSE 74; RESP 18; TEMP 36.3; O2SAT 99
--- NOTE | 2025-09-18 13:30 | P.ACPN_ITS ---
Advanced Care Planning Note Advanced Care Planning Note Discussed with: family member(s) Time spent (in minutes): 60 Narrative: Discussed patient's poor prognosis with patient's son, daughter (HCP), and daughter in law (grandchildren were present as well). She has been only minimally responsive with dysphagia and known p.o. intake in over 1 week. The patient remains encephalopathic/minimally responsive despite treatment of acute issues. She remains on IV fluids . Elected against parental nutrition/declined gtube. Discussed PRESIDENT/[employer]ODUCTION [employer]IVE EXPERIENCES with daughter, Yenni, and 3 sons as there is a low likelihood of meaningful recovery with poor prognosis. Family is desiring co mfort measures but would like to continue therapies until additional family arrives tomorrow. Made clear waiting may prolong patient's suffering. Problems Discussed (1) Decubitus ulcer, stage III: (2) Seizure disorder: (3) Bacteremia:
--- NOTE | 2025-09-18 14:50 | PC.NURSE ---
Patient moved to room 356 - family at bedside. Call patel within reach, bed alarm on. Airloss mattress in place.
[2025-09-18 15:35] VITALS: BP 156/67; PULSE 68; RESP 16; TEMP 36.5; O2SAT 94
[2025-09-18 19:22] VITALS: PULSE 78; RESP 16; TEMP 36.2; O2SAT 98
[2025-09-18] MEDS: diazePAM 10 MG/2 ML CARTRIDGE 5 MG IVPUSH (20:16)
[2025-09-18] MEDS: Dextrose 5 % and Lactated Ring 1,000 ML 100 ML IVCONT (21:35)
[2025-09-19] VITALS: PULSE 74; RESP 16; TEMP 36.9
[2025-09-19 03:40] VITALS: BP 154/84
[2025-09-19] MEDS: Dextrose 5 % and Lactated Ring 1,000 ML 100 ML IVCONT (06:16)
[2025-09-19 07:16] VITALS: BP 198/94; PULSE 69; RESP 14; TEMP 36.2; O2SAT 97
--- NOTE | 2025-09-19 08:14 | PC.NURSE ---
Patient appears to be resting comfortably, eyes closed. Patient opened eyes briefly to voice. Daughter and son at bedside, discussed with the nurse about possibly transitioning to METAL DRESSER, family informed they can ask questions and that they can let this know to facilitate conversation with the provider. No further needs or questions from family at this time.
--- NOTE | 2025-09-19 09:57 | HO.PM.IMPN ---
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 Resting comfortably in bed, in no acute distress Resp: CTA bilaterally. Breathing unlabored CVS: S1, S2, RRR Skin: Warm, dry Extremities: No edema Vital Signs: Vital Signs: Last Vital Signs Temp 97.2 F 09/19/25 07:16 Pulse 69 09/19/25 07:16 Resp 14 09/19/25 07:16 BP 198/94 H 09/19/25 07:16 Pulse Ox 97 09/19/25 07:16 O2 Del Method Room Air 09/19/25 07:16 O2 Flow Rate 98 09/17/25 03:16 BMI result Body Mass Index 26.3 Objective Data Active Medications Acetaminophen (Acetaminophen 325 Mg Tablet) 650 mg PO Q6H PRN PRN Reason: Pain, Mild 1-3,fever,headache Diazepam (Diazepam 10 Mg/2 Ml Cartridge) 5 mg IVPUSH Q4H PRN PRN Reason: anxiety or seizure Last Admin: 09/18/25 20:16 Dose: 5 mg Documented By: ARTI Comments: pt crying and restless in bed Levetiracetam (Keppra) 500 mg in 100 mls @ 400 mls/hr IV Q12H [facility] Last Infusion: 09/18/25 23:23 Dose: Infused Documented By: ARTI Morphine Sulfate (Morphine Sulfate 4 Mg/Ml Cartridge) 2 mg IVPUSH Q1H PRN; Protocol PRN Reason: Pain or respiratory distress Ondansetron HCl (Ondansetron Hcl 4 Mg/2 Ml Vial) 4 mg IVPUSH Q8H PRN PRN Reason: Nausea and Vomiting Scopolamine (Scopolamine 1.5 Mg Patch.Td.3) 1.5 mg TRANSDERMA Q72H [facility] Sodium Chloride (0.9 % Sodium Chloride Flush 3 Ml Syringe) 3 ml IVFLUSH QSHIFT [facility] Last Admin: 09/18/25 20:17 Dose: 3 ml Documented By: ARTI Labs 09/15/25 09:01 09/18/25 11:20 Labs: Laboratory Results - last 24 hr 09/18/25 09/18/25 11:20 11:39 Hold Purple Top SEE NOTE Anion Gap 11 L Estim Creat Clear Calc 114.1 Estimated GFR > 60 Random Glucose 111 Calcium 9.0 Assessment and Plan (1) Acute ischemic stroke: Status: Acute Plan 85-year-old female with history of AFib not on anticoagulation, who presented to hospital after witnessed seizure not relieved by Valium given by EMS, received 5 mg dose of Valium in hospital, work up ultimately revealed a left thalamic acute stroke, complicated by dysphagia, aphasia, abd staph epi bacteremia. 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 Family does not want g tube or PPN Pt has elected to make pt AIRFLIGHT ATTENDANTS SUPERVISOR Morphine, scopolamine, and Valium Toxic metabolic encephalopathy, likely multifactorial related benzo use, seizure, stroke and and bacteremia Acute stroke with dysphagia, aphagia NPO with poor p.o. intake x1 week prognosis is poor Staph Epi bacteremia from 09/12, likely contamination repeat cultures 09/15, negative Vanco discontinued per ID recommendations Seizure Continue Keppra IV Stage 3 decub ulcer, POA wound care following Frequent turning and other preventative measure per protocol Hypokalemia, IV K replacement Hypomagnesemia, IV Mag mag and K corrected Code status: AIRFLIGHT ATTENDANTS SUPERVISOR Given poor prognosis, goals of care conversation with family again today and they wish to make pt AIRFLIGHT ATTENDANTS SUPERVISOR. Quality Stroke Does the patient have a stroke diagnosis?: No VTE Prior VTE?: No VTE Risk Level:: Medical - low VTE Device Contraindication: Treatment Not Indicated VTE Drug Contraindication: Treatment Not Indicated
[2025-09-19] MEDS: 0.9 % Sodium Chloride Flush 3 ML SYRINGE IVFLUSH ×3 (10:27→22:52)
--- NOTE | 2025-09-19 10:45 | PC.NURSE ---
Patient was moaning out, crying, grimacing face. PRN pain medications administered, patient still seemed uncomfortable and tearful, pulled IV Valium from Pyxis, upon return patient appeared to be resting comfortably with unlabored breathing. Family at bedside, discussed medications with family, at this time we will hold of Valium as patient appears comfortable and is no longer moaning or grimacing.
[2025-09-19] MEDS: levETIRAcetam in NaCl (iso-os) 500 MG/100 ML PIGGYBACK 400 MG IV ×2 (11:06→22:51)
[2025-09-19] MEDS: diazePAM 10 MG/2 ML CARTRIDGE 2.5 MG IVPUSH ×3 (11:06→16:01)
--- NOTE | 2025-09-19 11:47 | PC.NURSE ---
Administered IV Valium before repositioning and cleaning patient. During position change and clean (patient had large incontinent urine. After care performed patient continued to moan and groin and grimace. IV Morphine administered with minimal effect. Reached out to provider Jhoan via [employer], as patient continued to moan out, family at bedside. Additional IV Valium ordered and administered with positive effect as patient appears comfortable and is no longer moaning. Family remains at bedside and instructed to utilize call patel if needed.
--- NOTE | 2025-09-19 16:05 | PC.NURSE ---
Family utilized call patel, concerned patient was in pain and having increased work of breathing. PRN medications administered. Patient is surrounded by large group of family and friends. Repositioning offered, family declined at this time due to visiting and patient appearing to be more comfortable after medication administered. Family educated to feel free to use call patel with any needs or assistance, family verbalized understanding.
[2025-09-19 16:53] VITALS: RESP 21
--- NOTE | 2025-09-19 16:58 | PC.NURSE ---
Family called for nursing, concerned of patient's breathing. Noted patient having some wheezing and increased work of breathing. PRN medications administered, repositioned patient and mouth care performed. Family aware to utilize call patel if needed.
[2025-09-19 17:23] VITALS: RESP 11
[2025-09-19 19:16] VITALS: RESP 14
--- NOTE | 2025-09-20 08:46 | HO.PM.IMPN ---
Subjective Subjective Date of Service: 09/20/25 Interval History: Follow RECLAMATION ENGINEER from stroke Pt is somnolent, resting comfortably No acute distress Review of Systems Review of Systems: Yes Unobtainable due to mental status Physical Exam Exam: Exam: alert, non verbal at this time Vital Signs: Vital Signs: Last Vital Signs Temp 97.2 F 09/19/25 07:16 Pulse 69 09/19/25 07:16 Resp 14 09/19/25 19:16 BP 198/94 H 09/19/25 07:16 Pulse Ox 97 09/19/25 07:16 O2 Del Method Room Air 09/19/25 07:16 O2 Flow Rate 98 09/17/25 03:16 BMI result Body Mass Index 26.3 Objective Data Active Medications Acetaminophen (Acetaminophen 325 Mg Tablet) 650 mg PO Q6H PRN PRN Reason: Pain, Mild 1-3,fever,headache Diazepam (Diazepam 10 Mg/2 Ml Cartridge) 2.5 mg IVPUSH Q4H PRN PRN Reason: anxiety or seizure Last Admin: 09/19/25 16:01 Dose: 2.5 mg Documented By: SHANITA Levetiracetam (Keppra) 500 mg in 100 mls @ 400 mls/hr IV Q12H [facility] Last Infusion: 09/19/25 23:08 Dose: Infused Documented By: ARTI Morphine Sulfate (Morphine Sulfate 4 Mg/Ml Cartridge) 2 mg IVPUSH Q1H PRN; Protocol PRN Reason: Pain or respiratory distress Last Admin: 09/20/25 08:36 Dose: 2 mg Documented By: KATE Ondansetron HCl (Ondansetron Hcl 4 Mg/2 Ml Vial) 4 mg IVPUSH Q8H PRN PRN Reason: Nausea and Vomiting Scopolamine (Scopolamine 1.5 Mg Patch.Td.3) 1.5 mg TRANSDERMA Q72H [facility] Last Admin: 09/19/25 10:24 Dose: 1.5 mg Documented By: SHANITA Sodium Chloride (0.9 % Sodium Chloride Flush 3 Ml Syringe) 3 ml IVFLUSH QSHIFT [facility] Last Admin: 09/19/25 22:52 Dose: 3 ml Documented By: ARTI Labs 09/15/25 09:01 09/18/25 11:20 Assessment and Plan (1) Acute ischemic stroke: Status: Acute Plan 85-year-old female with history of AFib not on anticoagulation, who presented to hospital after witnessed seizure not relieved by Valium given by EMS, received 5 mg dose of Valium in hospital, work up ultimately revealed a left thalamic acute stroke, complicated by dysphagia, aphasia, abd staph epi bacteremia. 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 Family does not want g tube or PPN Morphine, scopolamine, and Valium Toxic metabolic encephalopathy likely multifactorial related benzo use, seizure, stroke and and bacteremia Acute stroke with dysphagia, aphagia NPO with poor p.o. intake x1 week prognosis is poor Staph Epi bacteremia from 09/12, likely contamination repeat cultures 09/15, negative Vanco discontinued per ID recommendations Seizure Continue Keppra IV for comfort Stage 3 decub ulcer, POA Frequent turning and other preventative measure per protocol Hypokalemia/Hypomagnesemia repleted Given poor prognosis, goals of care conversation with family again today and they wish to make pt RECLAMATION ENGINEER. Quality Stroke Does the patient have a stroke diagnosis?: No VTE Prior VTE?: No VTE Risk Level:: Medical - low VTE Device Contraindication: Treatment Not Indicated VTE Drug Contraindication: Treatment Not Indicated
[2025-09-20] MEDS: 0.9 % Sodium Chloride Flush 3 ML SYRINGE IVFLUSH ×2 (09:38→17:08)
[2025-09-20] MEDS: levETIRAcetam in NaCl (iso-os) 500 MG/100 ML PIGGYBACK 400 MG IV ×2 (10:46→23:03)
--- NOTE | 2025-09-20 13:45 | MHC.CLN ---
F/U PT TRANSITIONED TO TELLER REMAINS NPO WILL FOLLOW WITH TEAM AND PROVIDE SUPPORT NEEDED
[2025-09-20] MEDS: diazePAM 10 MG/2 ML CARTRIDGE 2.5 MG IVPUSH (21:33)
[2025-09-21] MEDS: 0.9 % Sodium Chloride Flush 3 ML SYRINGE IVFLUSH ×3 (00:12→15:57)
[2025-09-21] MEDS: diazePAM 10 MG/2 ML CARTRIDGE 2.5 MG IVPUSH (05:45)
--- NOTE | 2025-09-21 10:20 | HO.PM.IMPN ---
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 Pt is somnolent, resting comfortably No acute distress Review of Systems Review of Systems: Yes Unobtainable due to mental status Physical Exam Vital Signs: Vital Signs: Last Vital Signs Temp 97.2 F 09/19/25 07:16 Pulse 69 09/19/25 07:16 Resp 14 09/19/25 19:16 BP 198/94 H 09/19/25 07:16 Pulse Ox 97 09/19/25 07:16 O2 Del Method Room Air 09/19/25 07:16 O2 Flow Rate 98 09/17/25 03:16 BMI result Body Mass Index 26.3 Objective Data Active Medications Acetaminophen (Acetaminophen 325 Mg Tablet) 650 mg PO Q6H PRN PRN Reason: Pain, Mild 1-3,fever,headache Atropine Sulfate (Atropine Sulfate 1 % Ophth Angélica 2 Ml Bottle) 1 drop SUBLINGUAL Q4H PRN PRN Reason: Secretions Diazepam (Diazepam 10 Mg/2 Ml Cartridge) 2.5 mg IVPUSH Q4H PRN PRN Reason: anxiety or seizure Last Admin: 09/21/25 05:45 Dose: 2.5 mg Documented By: ARTI Levetiracetam (Keppra) 500 mg in 100 mls @ 400 mls/hr IV Q12H [facility] Last Infusion: 09/20/25 23:25 Dose: Infused Documented By: ARTI Morphine Sulfate (Morphine Sulfate 4 Mg/Ml Cartridge) 2 mg IVPUSH Q1H PRN; Protocol PRN Reason: Pain or respiratory distress Last Admin: 09/21/25 06:37 Dose: 2 mg Documented By: ARTI Ondansetron HCl (Ondansetron Hcl 4 Mg/2 Ml Vial) 4 mg IVPUSH Q8H PRN PRN Reason: Nausea and Vomiting Scopolamine (Scopolamine 1.5 Mg Patch.Td.3) 1.5 mg TRANSDERMA Q72H [facility] Last Admin: 09/19/25 10:24 Dose: 1.5 mg Documented By: SHANITA Sodium Chloride (0.9 % Sodium Chloride Flush 3 Ml Syringe) 3 ml IVFLUSH QSHIFT [facility] Last Admin: 09/21/25 08:17 Dose: 3 ml Documented By: GRAZIC Labs 09/15/25 09:01 09/18/25 11:20 Microbiology Microbiology Results: Microbiology 09/15/25 10:10 Blood Culture - Final Blood - Venous No growth after 5 days. 09/15/25 10:10 Blood Culture - Final Blood - Venous No growth after 5 days. Assessment and Plan (1) Acute ischemic stroke: Status: Acute Plan 85-year-old female with history of AFib not on anticoagulation, who presented to hospital after witnessed seizure not relieved by Valium given by EMS, received 5 mg dose of Valium in hospital, work up ultimately revealed a left thalamic acute stroke, complicated by dysphagia, aphasia, abd staph epi bacteremia. INSPECTOR BARREL status Pt with acute ischemic stroke complicated by acute metabolic encephalopathy, and significant aphasia/dysphasia COMPOUNDER continues to recommend NPO. Family does not want g tube or PPN Morphine, scopolamine, and Valium Toxic metabolic encephalopathy likely multifactorial related benzo use, seizure, stroke and and bacteremia Acute stroke with dysphagia, aphagia NPO with poor p.o. intake x1 week prognosis is poor Staph Epi bacteremia from 09/12, likely contamination repeat cultures 09/15, negative Vanco discontinued per ID recommendations Seizure Continue Keppra IV for comfort Stage 3 decub ulcer, POA Frequent turning and other preventative measure per protocol Hypokalemia/Hypomagnesemia repleted Given poor prognosis, goals of care conversation with family again today and they wish to make pt INSPECTOR BARREL. Quality Stroke Does the patient have a stroke diagnosis?: No VTE Prior VTE?: No VTE Risk Level:: Medical - low VTE Device Contraindication: Treatment Not Indicated VTE Drug Contraindication: Treatment Not Indicated
[2025-09-21] MEDS: levETIRAcetam in NaCl (iso-os) 500 MG/100 ML PIGGYBACK 400 MG IV ×2 (10:42→23:32)
--- NOTE | 2025-09-21 17:08 | HO.WOUND ---
Wound Consult: Follow up 85 yr old female admitted to [facility] [place] on 09/12/25- See progress notes and H&P for detailed history. Wound consult follow up for sacral wound. Recent code status change to ETHANOL QUALITY LEADER (Comfort Measures Only). Patient skin not assessed brief chart review completed. Topical orders remains appropriate for wound care to maintain comfort and dignity. Etiology: Coccyx deep tissue pressure injury Present on Admission Bilateral buttocks with MASD Goals of Treatment: ? triad paste to provide an occlusive dressing for autolytic debridment, to allow moist wound healing with absorption of mild exudate, to minimize contamination of urine/stool or bacteria, and to soothe and protect kevin wound skin, cover with foam Recommendations: 1. Turn and Reposition every 2 hours and as needed for patient comfort. Use pillows or wedges to support off loading positions. 2. Off Load all bony prominences with use of pillows and heel boots if needed. Apply Preventative foams where needed. 3. Monitor for incontinence and moisture control, use barrier creams when needed for prevention and treatment. 4. Provide adequate and supplemental nutrition. 5. Order or Continue low air loss mattress. 6. When applicable maintain blood glucose levels per Providers order. Coccyx: Off Load Pressure with Q2 hr turns and use of pillows - Cleanse with PH balance spray or wipes, pat dry. ?Apply thin layer of Triad to wound bed. Do not remove all of paste between applications as this may cause further skin damage.? Cover with foam dressing to aid in off loading and protection from friction. Change every other day and PRN. Bilateral Heels - Elevate heels off of bed surface with pillows. Float heels off of pillows. Apply skin prep allow to dry. Apply heel foam dressings, peel back and assess Q shift and change every 3-5 days and PRN. Re-consult wound care Nurse for wound deterioration or wound changes.
[2025-09-22] MEDS: Atropine Sulfate 1 % Ophth Sol 2 ML BOTTLE 1 DROP SUBLINGUAL (02:52)
[2025-09-22] MEDS: diazePAM 10 MG/2 ML CARTRIDGE 2.5 MG IVPUSH ×4 (07:41→19:47)
--- NOTE | 2025-09-22 08:12 | HO.PM.IMPN ---
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 Pt is somnolent had pain overnight that required increased pain medication Review of Systems Review of Systems: Yes Unobtainable due to mental status Physical Exam Exam: Exam: Appearing in no acute distress Vital Signs: Vital Signs: Last Vital Signs Temp 97.2 F 09/19/25 07:16 Pulse 69 09/19/25 07:16 Resp 14 09/19/25 19:16 BP 198/94 H 09/19/25 07:16 Pulse Ox 97 09/19/25 07:16 O2 Del Method Room Air 09/19/25 07:16 O2 Flow Rate 98 09/17/25 03:16 BMI result Body Mass Index 26.3 Objective Data Active Medications Acetaminophen (Acetaminophen 325 Mg Tablet) 650 mg PO Q6H PRN PRN Reason: Pain, Mild 1-3,fever,headache Atropine Sulfate (Atropine Sulfate 1 % Ophth Angélica 2 Ml Bottle) 1 drop SUBLINGUAL Q4H PRN PRN Reason: Secretions Last Admin: 09/22/25 02:52 Dose: 1 drop Documented By: WESLY Diazepam (Diazepam 10 Mg/2 Ml Cartridge) 2.5 mg IVPUSH Q4H PRN PRN Reason: anxiety or seizure Last Admin: 09/22/25 07:41 Dose: 2.5 mg Documented By: NIYA Levetiracetam (Keppra) 500 mg in 100 mls @ 400 mls/hr IV Q12H [facility] Last Infusion: 09/21/25 23:47 Dose: Infused Documented By: WESLY Morphine Sulfate (Morphine Sulfate 4 Mg/Ml Cartridge) 2 mg IVPUSH Q1H PRN; Protocol PRN Reason: Pain or respiratory distress Last Admin: 09/22/25 06:30 Dose: 2 mg Documented By: WESLY Comments: VP DIRECTOR OF FINANCE Ondansetron HCl (Ondansetron Hcl 4 Mg/2 Ml Vial) 4 mg IVPUSH Q8H PRN PRN Reason: Nausea and Vomiting Scopolamine (Scopolamine 1.5 Mg Patch.Td.3) 1.5 mg TRANSDERMA Q72H [facility] Last Admin: 09/19/25 10:24 Dose: 1.5 mg Documented By: BURAurora Sodium Chloride (0.9 % Sodium Chloride Flush 3 Ml Syringe) 3 ml IVFLUSH QSHIFT [facility] Last Admin: 09/22/25 00:26 Dose: Not Given Documented By: WESLY Non-Admin Reason: Previously Administered Labs 09/15/25 09:01 09/18/25 11:20 Assessment and Plan (1) Acute ischemic stroke: Status: Acute Plan 85-year-old female with history of AFib not on anticoagulation, who presented to hospital after witnessed seizure not relieved by Valium given by EMS, received 5 mg dose of Valium in hospital, work up ultimately revealed a left thalamic acute stroke, complicated by dysphagia, aphasia, abd staph epi bacteremia. 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 Family does not want g tube or PPN Morphine, scopolamine, and Valium as needed Toxic metabolic encephalopathy likely multifactorial related benzo use, seizure, stroke and and bacteremia Acute stroke with dysphagia, aphagia NPO with poor p.o. intake x1 week prognosis is poor Staph Epi bacteremia from 09/12, likely contamination repeat cultures 09/15, negative Vanco discontinued per ID recommendations Seizure Continue Keppra IV for comfort Stage 3 decub ulcer, POA Frequent turning and other preventative measure per protocol Hypokalemia/Hypomagnesemia repleted Quality Stroke Does the patient have a stroke diagnosis?: No VTE Prior VTE?: No VTE Risk Level:: Medical - low VTE Device Contraindication: Treatment Not Indicated VTE Drug Contraindication: Treatment Not Indicated
[2025-09-22] MEDS: 0.9 % Sodium Chloride Flush 3 ML SYRINGE IVFLUSH ×2 (10:26→15:58)
[2025-09-22] MEDS: levETIRAcetam in NaCl (iso-os) 500 MG/100 ML PIGGYBACK 100 MG IV (10:27)
--- NOTE | 2025-09-22 13:56 | MHC.CM.PN ---
per rounds pt is poor
--- NOTE | 2025-09-22 15:37 | PC.NURSE ---
Discussed possibility of morphine drip, pt family want to wait, at this time, and continue with valium and morphine IV push. Provider alerted. Pharmacy alerted.
[2025-09-22] MEDS: levETIRAcetam in NaCl (iso-os) 500 MG/100 ML PIGGYBACK 400 MG IV (23:21)
[2025-09-23] MEDS: diazePAM 10 MG/2 ML CARTRIDGE 2.5 MG IVPUSH ×5 (06:21→21:04)
[2025-09-23] MEDS: 0.9 % Sodium Chloride Flush 3 ML SYRINGE IVFLUSH ×2 (09:56→17:58)
--- NOTE | 2025-09-23 10:43 | MHC.CM.PN ---
PT NOW DRY COLOR TESTER, NO PLAN TO DC AT THIS TIME CM AND [facility] FOLLOWING
[2025-09-23] MEDS: levETIRAcetam in NaCl (iso-os) 500 MG/100 ML PIGGYBACK 400 MG IV ×2 (12:02→23:08)
--- NOTE | 2025-09-23 16:15 | HO.PM.IMPN ---
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 not responsive Review of Systems unable to obtain ROS Physical Exam Vital Signs: Vital Signs: Last Vital Signs Temp 97.2 F 09/19/25 07:16 Pulse 69 09/19/25 07:16 Resp 14 09/19/25 19:16 BP 198/94 H 09/19/25 07:16 Pulse Ox 97 09/19/25 07:16 O2 Del Method Room Air 09/19/25 07:16 O2 Flow Rate 98 09/17/25 03:16 BMI result Body Mass Index 26.3 Const: Other: non responsive, appears comfortable Resp: Other: nonlabored Objective Data Active Medications Acetaminophen (Acetaminophen 325 Mg Tablet) 650 mg PO Q6H PRN PRN Reason: Pain, Mild 1-3,fever,headache Atropine Sulfate (Atropine Sulfate 1 % Ophth Angélica 2 Ml Bottle) 1 drop SUBLINGUAL Q4H PRN PRN Reason: Secretions Last Admin: 09/22/25 02:52 Dose: 1 drop Documented By: WESLY Diazepam (Diazepam 10 Mg/2 Ml Cartridge) 2.5 mg IVPUSH Q3H PRN PRN Reason: anxiety or seizure Last Admin: 09/23/25 14:18 Dose: 2.5 mg Documented By: NIYA Levetiracetam (Keppra) 500 mg in 100 mls @ 400 mls/hr IV Q12H [facility] Last Infusion: 09/23/25 12:40 Dose: Infused Documented By: NIYA Morphine Sulfate (Morphine Sulfate 4 Mg/Ml Cartridge) 2 mg IVPUSH Q1H PRN; Protocol PRN Reason: Pain or respiratory distress Last Admin: 09/22/25 20:29 Dose: 2 mg Documented By: WESLY Comments: PACKAGE DELIVERY DRIVER Naloxone HCl (Naloxone Hcl 0.4 Mg/Ml Vial) 0.2 mg IVPUSH Q2M PRN PRN Reason: Excessive sedation or RR < 8 Ondansetron HCl (Ondansetron Hcl 4 Mg/2 Ml Vial) 4 mg IVPUSH Q8H PRN PRN Reason: Nausea and Vomiting Scopolamine (Scopolamine 1.5 Mg Patch.Td.3) 1.5 mg TRANSDERMA Q72H [facility] Last Admin: 09/22/25 10:24 Dose: 1.5 mg Documented By: NIYA Sodium Chloride (0.9 % Sodium Chloride Flush 3 Ml Syringe) 3 ml IVFLUSH QSHIFT [facility] Last Admin: 09/23/25 09:56 Dose: 3 ml Documented By: NIYA Labs 09/15/25 09:01 09/18/25 11:20 Assessment and Plan (1) Epileptic seizure: Status: Acute (2) Bacteremia: Status: Acute Plan 85-year-old female with history of AFib not on anticoagulation, who presented to hospital after witnessed seizure not relieved by Valium given by EMS, received 5 mg dose of Valium in hospital, work up ultimately revealed a left thalamic acute stroke, complicated by dysphagia, aphasia, abd staph epi bacteremia. 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 Family does not want g tube or PPN Morphine, scopolamine, and Valium as needed Toxic metabolic encephalopathy likely multifactorial related benzo use, seizure, stroke and and bacteremia Acute stroke with dysphagia, aphagia NPO with poor p.o. intake x1 week prognosis is poor Staph Epi bacteremia from 09/12, likely contamination repeat cultures 09/15, negative Vanco discontinued per ID recommendations Seizure Continue Keppra IV for comfort Stage 3 decub ulcer, POA Frequent turning and other preventative measure per protocol Hypokalemia/Hypomagnesemia repleted Quality Stroke Does the patient have a stroke diagnosis?: No VTE Prior VTE?: No VTE Risk Level:: Medical - low VTE Device Contraindication: Treatment Not Indicated VTE Drug Contraindication: Treatment Not Indicated
[2025-09-24] MEDS: diazePAM 10 MG/2 ML CARTRIDGE 2.5 MG IVPUSH ×7 (00:01→23:09)
[2025-09-24] MEDS: 0.9 % Sodium Chloride Flush 3 ML SYRINGE IVFLUSH ×4 (08:19→22:59)
[2025-09-24] MEDS: levETIRAcetam in NaCl (iso-os) 500 MG/100 ML PIGGYBACK 400 MG IV ×2 (10:42→22:47)
--- NOTE | 2025-09-24 13:12 | HO.PM.IMPN ---
Subjective Subjective Date of Service: 09/24/25 Interval History: seen and examined, CLERK GUIDE appears comfirtable, breathing non-labored Physical Exam Vital Signs: Vital Signs: Last Vital Signs Temp 97.2 F 09/19/25 07:16 Pulse 69 09/19/25 07:16 Resp 14 09/19/25 19:16 BP 198/94 H 09/19/25 07:16 Pulse Ox 97 09/19/25 07:16 O2 Del Method Room Air 09/19/25 07:16 O2 Flow Rate 98 09/17/25 03:16 BMI result Body Mass Index 26.3 Objective Data Active Medications Acetaminophen (Acetaminophen 325 Mg Tablet) 650 mg PO Q6H PRN PRN Reason: Pain, Mild 1-3,fever,headache Atropine Sulfate (Atropine Sulfate 1 % Ophth Angélica 2 Ml Bottle) 1 drop SUBLINGUAL Q4H PRN PRN Reason: Secretions Last Admin: 09/22/25 02:52 Dose: 1 drop Documented By: WESLY Diazepam (Diazepam 10 Mg/2 Ml Cartridge) 2.5 mg IVPUSH Q3H PRN PRN Reason: anxiety or seizure Last Admin: 09/24/25 09:39 Dose: 2.5 mg Documented By: BRADY Levetiracetam (Keppra) 500 mg in 100 mls @ 400 mls/hr IV Q12H [facility] Last Infusion: 09/24/25 10:58 Dose: Infused Documented By: BRADY Morphine Sulfate (Morphine Sulfate 4 Mg/Ml Cartridge) 2 mg IVPUSH Q1H PRN; Protocol PRN Reason: pain or respiratory distress Last Admin: 09/24/25 10:58 Dose: 2 mg Documented By: BRADY Naloxone HCl (Naloxone Hcl 0.4 Mg/Ml Vial) 0.2 mg IVPUSH Q2M PRN PRN Reason: Excessive sedation or RR < 8 Ondansetron HCl (Ondansetron Hcl 4 Mg/2 Ml Vial) 4 mg IVPUSH Q8H PRN PRN Reason: Nausea and Vomiting Scopolamine (Scopolamine 1.5 Mg Patch.Td.3) 1.5 mg TRANSDERMA Q72H [facility] Last Admin: 09/22/25 10:24 Dose: 1.5 mg Documented By: NIYA Sodium Chloride (0.9 % Sodium Chloride Flush 3 Ml Syringe) 3 ml IVFLUSH QSHIFT [facility] Last Admin: 09/24/25 08:19 Dose: 3 ml Documented By: BRADY Labs 09/15/25 09:01 09/18/25 11:20 Assessment and Plan (1) Seizure disorder: Status: Acute (2) Acute ischemic stroke: Status: Acute Plan 85-year-old female with history of AFib not on anticoagulation, who presented to hospital after witnessed seizure not relieved by Valium given by EMS, received 5 mg dose of Valium in hospital, work up ultimately revealed a left thalamic acute stroke, complicated by dysphagia, aphasia, abd staph epi bacteremia. 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 Family does not want g tube or PPN Morphine, scopolamine, and Valium as needed Toxic metabolic encephalopathy likely multifactorial related benzo use, seizure, stroke and and bacteremia Acute stroke with dysphagia, aphagia NPO with poor p.o. intake x1 week prognosis is poor Staph Epi bacteremia from 09/12, likely contamination repeat cultures 09/15, negative Vanco discontinued per ID recommendations Seizure Continue Keppra IV for comfort Stage 3 decub ulcer, POA Frequent turning and other preventative measure per protocol Hypokalemia/Hypomagnesemia repleted Quality Stroke Does the patient have a stroke diagnosis?: No VTE Prior VTE?: No VTE Risk Level:: Medical - low VTE Device Contraindication: Treatment Not Indicated VTE Drug Contraindication: Treatment Not Indicated
--- NOTE | 2025-09-24 15:30 | MHC.CM.PN ---
per rounds pt rmains in poor condition
--- NOTE | 2025-09-25 03:33 | PC.NURSE ---
This RN went to check on patient and daughter in the room. Earlier patient had several family members at the bedside that wished for patient to not be repositioned too much in which I explained the importance of frequent repositioning but family still wanted to leave the patient alone. Just now when asked if it would be alright before the day shift if we can check to make sure patient wasn't wet underneath and to change the purewick the daughter said she wanted to wait until around 11 in the morning as to not disturb the patient since she was calm right now.
[2025-09-25] MEDS: diazePAM 10 MG/2 ML CARTRIDGE 2.5 MG IVPUSH (04:40)
--- NOTE | 2025-09-25 05:52 | PC.NURSE ---
This morning this RN went into patients room to administer morphine and again told the daughter that we wanted to check if the pads under the patient were wet and to change the purewick. The daughter agreed and patient was able to get cleaned up and purewick changed.
[2025-09-25] MEDS: 0.9 % Sodium Chloride Flush 3 ML SYRINGE IVFLUSH (08:15)
[2025-09-25 08:35] VITALS: RESP 13
--- NOTE | 2025-09-25 10:24 | HO.PM.IMPN ---
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, breathing non-labored Physical Exam Exam: Exam: sleeping Vital Signs: Vital Signs: Last Vital Signs Temp 97.2 F 09/19/25 07:16 Pulse 69 09/19/25 07:16 Resp 14 09/19/25 19:16 BP 198/94 H 09/19/25 07:16 Pulse Ox 97 09/19/25 07:16 O2 Del Method Room Air 09/19/25 07:16 O2 Flow Rate 98 09/17/25 03:16 BMI result Body Mass Index 26.3 Objective Data Active Medications Acetaminophen (Acetaminophen 325 Mg Tablet) 650 mg PO Q6H PRN PRN Reason: Pain, Mild 1-3,fever,headache Atropine Sulfate (Atropine Sulfate 1 % Ophth Angélica 2 Ml Bottle) 1 drop SUBLINGUAL Q4H PRN PRN Reason: Secretions Last Admin: 09/22/25 02:52 Dose: 1 drop Documented By: WESLY Diazepam (Diazepam 10 Mg/2 Ml Cartridge) 2.5 mg IVPUSH Q3H PRN PRN Reason: anxiety or seizure Last Admin: 09/25/25 04:40 Dose: 2.5 mg Documented By: SHANDA Levetiracetam (Keppra) 500 mg in 100 mls @ 400 mls/hr IV Q12H [facility] Last Infusion: 09/24/25 23:11 Dose: Infused Documented By: SHANDA Morphine Sulfate (Morphine Sulfate 4 Mg/Ml Cartridge) 2 mg IVPUSH Q1H PRN; Protocol PRN Reason: pain or respiratory distress Last Admin: 09/25/25 08:11 Dose: 2 mg Documented By: RODOLFO Naloxone HCl (Naloxone Hcl 0.4 Mg/Ml Vial) 0.2 mg IVPUSH Q2M PRN PRN Reason: Excessive sedation or RR < 8 Ondansetron HCl (Ondansetron Hcl 4 Mg/2 Ml Vial) 4 mg IVPUSH Q8H PRN PRN Reason: Nausea and Vomiting Scopolamine (Scopolamine 1.5 Mg Patch.Td.3) 1.5 mg TRANSDERMA Q72H [facility] Last Admin: 09/25/25 08:12 Dose: 1.5 mg Documented By: RODOLFO Sodium Chloride (0.9 % Sodium Chloride Flush 3 Ml Syringe) 3 ml IVFLUSH QSHIFT [facility] Last Admin: 09/25/25 08:15 Dose: 3 ml Documented By: RODOLFO Labs 09/15/25 09:01 09/18/25 11:20 Assessment and Plan (1) Seizure disorder: Status: Acute (2) Acute ischemic stroke: Status: Acute Plan 85-year-old female with history of AFib not on anticoagulation, who presented to hospital after witnessed seizure not relieved by Valium given by EMS, received 5 mg dose of Valium in hospital, work up ultimately revealed a left thalamic acute stroke, complicated by dysphagia, aphasia, abd staph epi bacteremia. 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 Family does not want g tube or PPN Morphine, scopolamine, and Valium as needed Toxic metabolic encephalopathy likely multifactorial related benzo use, seizure, stroke and and bacteremia Acute stroke with dysphagia, aphagia NPO with poor p.o. intake x1 week prognosis is poor Staph Epi bacteremia from 09/12, likely contamination repeat cultures 09/15, negative Vanco discontinued per ID recommendations Seizure s/p keppra Stage 3 decub ulcer, POA Frequent turning and other preventative measure per protocol Hypokalemia/Hypomagnesemia repleted Quality Stroke Does the patient have a stroke diagnosis?: No VTE Prior VTE?: No VTE Risk Level:: Medical - low VTE Device Contraindication: Treatment Not Indicated VTE Drug Contraindication: Treatment Not Indicated
[2025-09-25 11:40] VITALS: RESP 14
[2025-09-25 14:12] VITALS: RESP 15
[2025-09-25 14:40] VITALS: RESP 12
[2025-09-25 17:41] VITALS: RESP 16
[2025-09-25 23:55] VITALS: RESP 12
[2025-09-26] MEDS: diazePAM 10 MG/2 ML CARTRIDGE 2.5 MG IVPUSH (06:30)
[2025-09-26 07:09] VITALS: RESP 15
--- NOTE | 2025-09-26 08:40 | HO.PM.IMPN ---
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, breathing non-labored has more discomfort with personal care otherwise comfortable with current medication plan Physical Exam Exam: Exam: somnolent Vital Signs: Vital Signs: Last Vital Signs Temp 97.2 F 09/19/25 07:16 Pulse 69 09/19/25 07:16 Resp 15 09/26/25 07:09 BP 198/94 H 09/19/25 07:16 Pulse Ox 97 09/19/25 07:16 O2 Del Method Room Air 09/19/25 07:16 O2 Flow Rate 98 09/17/25 03:16 BMI result Body Mass Index 26.3 Objective Data Active Medications Acetaminophen (Acetaminophen 325 Mg Tablet) 650 mg PO Q6H PRN PRN Reason: Pain, Mild 1-3,fever,headache Atropine Sulfate (Atropine Sulfate 1 % Ophth Angélica 2 Ml Bottle) 1 drop SUBLINGUAL Q4H PRN PRN Reason: Secretions Last Admin: 09/22/25 02:52 Dose: 1 drop Documented By: WESLY Diazepam (Diazepam 10 Mg/2 Ml Cartridge) 2.5 mg IVPUSH Q3H PRN PRN Reason: anxiety or seizure Last Admin: 09/26/25 06:30 Dose: 2.5 mg Documented By: SHANDA Morphine Sulfate (Morphine Sulfate 4 Mg/Ml Cartridge) 2 mg IVPUSH Q1H PRN; Protocol PRN Reason: pain or respiratory distress Last Admin: 09/26/25 07:09 Dose: 2 mg Documented By: CRYSTAL Naloxone HCl (Naloxone Hcl 0.4 Mg/Ml Vial) 0.2 mg IVPUSH Q2M PRN PRN Reason: Excessive sedation or RR < 8 Ondansetron HCl (Ondansetron Hcl 4 Mg/2 Ml Vial) 4 mg IVPUSH Q8H PRN PRN Reason: Nausea and Vomiting Scopolamine (Scopolamine 1.5 Mg Patch.Td.3) 1.5 mg TRANSDERMA Q72H [facility] Last Admin: 09/25/25 08:12 Dose: 1.5 mg Documented By: RODOLFO Sodium Chloride (0.9 % Sodium Chloride Flush 3 Ml Syringe) 3 ml IVFLUSH QSHIFT [facility] Last Admin: 09/26/25 07:30 Dose: Not Given Documented By: CRYSTAL Non-Admin Reason: Previously Administered Labs 09/15/25 09:01 09/18/25 11:20 Assessment and Plan (1) Seizure disorder: Status: Acute (2) Acute ischemic stroke: Status: Acute Plan 85-year-old female with history of AFib not on anticoagulation, who presented to hospital after witnessed seizure not relieved by Valium given by EMS, received 5 mg dose of Valium in hospital, work up ultimately revealed a left thalamic acute stroke, complicated by dysphagia, aphasia, abd staph epi bacteremia. 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 Family did not want g tube or PPN continue Morphine, scopolamine, and Valium as needed especially pre-medication during personal care no unnecessary lab draws or vital signs Other diagnosis: Toxic metabolic encephalopathy likely multifactorial related benzo use, seizure, stroke and and bacteremia Acute stroke with dysphagia, aphagia NPO with poor p.o. intake x1 week Staph Epi bacteremia from 09/12, likely contamination repeat cultures 09/15, negative Vanco discontinued per ID recommendations Seizure s/p keppra Stage 3 decub ulcer, POA Frequent turning and other preventative measure per protocol Hypokalemia/Hypomagnesemia repleted Quality Stroke Does the patient have a stroke diagnosis?: No VTE Prior VTE?: No VTE Risk Level:: Medical - low VTE Device Contraindication: Treatment Not Indicated VTE Drug Contraindication: Treatment Not Indicated
--- NOTE | 2025-09-26 18:31 | PC.NURSE ---
Patient resting comfortably in bed for most of shift. Intermittent groaning and increased respiratory effort during morning and midday- PRN medications administered with positive effect. Foam dressing remains in place on coccyx- C/D/I. Skin warm, pink, and dry. Foam dressings to bilateral heels for protection in place. Pressure off-loaded. Occasional cough present- upper lung sounds clear. No secretions noted. Scopolamine patch remains in place. Suction setup at bedside. Patient repositioned and oral care provided. Tolerated well with PRN medications. Non-pitting edema to right arm. Purewick in place- no urine output. Patient intermittently opens eyes when behaviors indicate pain. 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 Family at bedside throughout day. Patient sleeping throughout afternoon and evening. Respirations even and unlabored.
[2025-09-26] MEDS: 0.9 % Sodium Chloride Flush 3 ML SYRINGE IVFLUSH ×2 (22:21)
[2025-09-26 22:45] VITALS: RESP 18
[2025-09-26 23:45] VITALS: RESP 18
[2025-09-27] MEDS: 0.9 % Sodium Chloride Flush 3 ML SYRINGE IVFLUSH ×2 (07:29→15:54)
--- NOTE | 2025-09-27 09:07 | P.PNIM_ITS ---
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, breathing non-labored has more discomfort with personal care otherwise comfortable with current medication plan Physical Exam 2 Exam: Exam: somnolent Vital Signs: Vital Signs: Last Vital Signs Temp 97.2 F 09/19/25 07:16 Pulse 69 09/19/25 07:16 Resp 18 09/26/25 23:45 BP 198/94 H 09/19/25 07:16 Pulse Ox 97 09/19/25 07:16 O2 Del Method Room Air 09/19/25 07:16 O2 Flow Rate 98 09/17/25 03:16 BMI result Body Mass Index 26.3 Objective Data Active Medications Acetaminophen (Acetaminophen 325 Mg Tablet) 650 mg PO Q6H PRN PRN Reason: Pain, Mild 1-3,fever,headache Atropine Sulfate (Atropine Sulfate 1 % Ophth Angélica 2 Ml Bottle) 1 drop SUBLINGUAL Q4H PRN PRN Reason: Secretions Last Admin: 09/22/25 02:52 Dose: 1 drop Documented By: WESLY Diazepam (Diazepam 10 Mg/2 Ml Cartridge) 2.5 mg IVPUSH Q3H PRN PRN Reason: anxiety or seizure Last Admin: 09/26/25 06:30 Dose: 2.5 mg Documented By: SHANDA Morphine Sulfate (Morphine Sulfate 4 Mg/Ml Cartridge) 2 mg IVPUSH Q1H PRN; Protocol PRN Reason: pain or respiratory distress Last Admin: 09/27/25 07:27 Dose: 2 mg Documented By: VALERIY Naloxone HCl (Naloxone Hcl 0.4 Mg/Ml Vial) 0.2 mg IVPUSH Q2M PRN PRN Reason: Excessive sedation or RR < 8 Ondansetron HCl (Ondansetron Hcl 4 Mg/2 Ml Vial) 4 mg IVPUSH Q8H PRN PRN Reason: Nausea and Vomiting Scopolamine (Scopolamine 1.5 Mg Patch.Td.3) 1.5 mg TRANSDERMA Q72H [facility] Last Admin: 09/25/25 08:12 Dose: 1.5 mg Documented By: RODOLFO Sodium Chloride (0.9 % Sodium Chloride Flush 3 Ml Syringe) 3 ml IVFLUSH QSHIFT [facility] Last Admin: 09/27/25 07:29 Dose: 3 ml Documented By: VALERIY Labs 09/15/25 09:01 09/18/25 11:20 Assessment and Plan (1) Seizure disorder: Status: Acute (2) Acute ischemic stroke: Status: Acute Plan 85-year-old female with history of AFib not on anticoagulation, who presented to hospital after witnessed seizure not relieved by Valium given by EMS, received 5 mg dose of Valium in hospital, work up ultimately revealed a left thalamic acute stroke, complicated by dysphagia, aphasia, abd staph epi bacteremia. BET TAKER status Pt with acute ischemic stroke complicated by acute metabolic encephalopathy, and significant aphasia/dysphasia curently NPO. Family did not want g tube or PPN continue Morphine, scopolamine, and Valium as needed especially pre-medication during personal care no unnecessary lab draws or vital signs Other diagnosis: Toxic metabolic encephalopathy likely multifactorial related benzo use, seizure, stroke and and bacteremia Acute stroke with dysphagia, aphagia NPO with poor p.o. intake x1 week Staph Epi bacteremia from 09/12, likely contamination repeat cultures 09/15, negative Vanco discontinued per ID recommendations Seizure s/p keppra Stage 3 decub ulcer, POA Frequent turning and other preventative measure per protocol Hypokalemia/Hypomagnesemia repleted Quality Stroke Does the patient have a stroke diagnosis?: No VTE Prior VTE?: No VTE Risk Level:: Medical - low VTE Device Contraindication: Treatment Not Indicated VTE Drug Contraindication: Treatment Not Indicated
--- NOTE | 2025-09-27 15:43 | MHC.CM.PN ---
per rounds pt remains in poor condition
--- NOTE | 2025-09-27 17:50 | PC.NURSE ---
Family remains at bedside. PRN medications administered for discomfort, anxiety and increased work of breathing. Patient has periods of moaning and increased work of breathing. Family utilizes call patel to inform nursing staff of assistance. Patient turned and repositioned every 2 hours or as needed by family for comfort. Bed alarm remains in place.
[2025-09-27 20:59] VITALS: RESP 18
[2025-09-28] MEDS: 0.9 % Sodium Chloride Flush 3 ML SYRINGE IVFLUSH ×4 (00:44→20:05)
--- NOTE | 2025-09-28 09:22 | P.PNIM_ITS ---
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, breathing non-labored has more discomfort with personal care otherwise comfortable with current medication plan Physical Exam 2 Exam: Exam: somnolent normal lung expansion Vital Signs: Vital Signs: Last Vital Signs Temp 97.2 F 09/19/25 07:16 Pulse 69 09/19/25 07:16 Resp 18 09/27/25 20:59 BP 198/94 H 09/19/25 07:16 Pulse Ox 97 09/19/25 07:16 O2 Del Method Room Air 09/19/25 07:16 O2 Flow Rate 98 09/17/25 03:16 BMI result Body Mass Index 26.3 Objective Data Active Medications Acetaminophen (Acetaminophen 325 Mg Tablet) 650 mg PO Q6H PRN PRN Reason: Pain, Mild 1-3,fever,headache Atropine Sulfate (Atropine Sulfate 1 % Ophth Angélica 2 Ml Bottle) 1 drop SUBLINGUAL Q4H PRN PRN Reason: Secretions Last Admin: 09/22/25 02:52 Dose: 1 drop Documented By: WESLY Diazepam (Diazepam 10 Mg/2 Ml Cartridge) 2.5 mg IVPUSH Q3H PRN PRN Reason: anxiety or seizure Last Admin: 09/26/25 06:30 Dose: 2.5 mg Documented By: SHANDA Morphine Sulfate (Morphine Sulfate 4 Mg/Ml Cartridge) 2 mg IVPUSH Q1H PRN; Protocol PRN Reason: pain or respiratory distress Last Admin: 09/28/25 05:51 Dose: 2 mg Documented By: LORRAINE Naloxone HCl (Naloxone Hcl 0.4 Mg/Ml Vial) 0.2 mg IVPUSH Q2M PRN PRN Reason: Excessive sedation or RR < 8 Ondansetron HCl (Ondansetron Hcl 4 Mg/2 Ml Vial) 4 mg IVPUSH Q8H PRN PRN Reason: Nausea and Vomiting Scopolamine (Scopolamine 1.5 Mg Patch.Td.3) 1.5 mg TRANSDERMA Q72H [facility] Last Admin: 09/25/25 08:12 Dose: 1.5 mg Documented By: RODOLFO Sodium Chloride (0.9 % Sodium Chloride Flush 3 Ml Syringe) 3 ml IVFLUSH QSHIFT [facility] Last Admin: 09/28/25 00:44 Dose: 3 ml Documented By: LORRAINE Labs 09/15/25 09:01 09/18/25 11:20 Assessment and Plan (1) Seizure disorder: Status: Acute (2) Acute ischemic stroke: Status: Acute Plan 85-year-old female with history of AFib not on anticoagulation, who presented to hospital after witnessed seizure not relieved by Valium given by EMS, received 5 mg dose of Valium in hospital, work up ultimately revealed a left thalamic acute stroke, complicated by dysphagia, aphasia, abd staph epi bacteremia. Comfort measures only Pt with acute ischemic stroke complicated by acute metabolic encephalopathy, and significant aphasia/dysphasia curently NPO. Family did not want g tube or PPN continue Morphine, scopolamine, and Valium as needed especially pre-medication during personal care no unnecessary lab draws or vital signs Other diagnosis: Toxic metabolic encephalopathy likely multifactorial related benzo use, seizure, stroke and and bacteremia Acute stroke with dysphagia, aphagia NPO with poor p.o. intake x1 week Staph Epi bacteremia from 09/12, likely contamination repeat cultures 09/15, negative Vanco discontinued per ID recommendations Seizure s/p keppra Stage 3 decub ulcer, POA Frequent turning and other preventative measure per protocol Hypokalemia/Hypomagnesemia repleted Quality Stroke Does the patient have a stroke diagnosis?: No VTE Prior VTE?: No VTE Risk Level:: Medical - low VTE Device Contraindication: Treatment Not Indicated VTE Drug Contraindication: Treatment Not Indicated
[2025-09-28 10:41] VITALS: RESP 14
--- NOTE | 2025-09-28 18:39 | PC.NURSE ---
Assumed care of patient at 0645. Patient resting comfortably in bed with family at bedside. Respirations even and unlabored. Occasional dry cough. Skin warm, pink, and dry. Purewick in place- patient continues to produce urine. DTI to coccyx- Foam dressing C/D/I. Preventative foam dressings to heels- dressings changed today. No redness noted to heels. Airloss mattress active. Patient repositioned at regular intervals. Pressure off-loaded with pillows. Morphine utilized for pain management with positive effect.
[2025-09-29] MEDS: 0.9 % Sodium Chloride Flush 3 ML SYRINGE IVFLUSH ×2 (08:55→23:26)
--- NOTE | 2025-09-29 13:20 | MHC.CM.PN ---
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
--- NOTE | 2025-09-29 15:14 | HO.PM.IMPN ---
Subjective Subjective Date of Service: 09/29/25 Interval History: Continues to decline. Appears comfortable with pulse dose morphine Review of Systems Unable to obtain Physical Exam Vital Signs: Vital Signs: Last Vital Signs Temp 97.2 F 09/19/25 07:16 Pulse 69 09/19/25 07:16 Resp 14 09/28/25 10:41 BP 198/94 H 09/19/25 07:16 Pulse Ox 97 09/19/25 07:16 O2 Del Method Room Air 09/19/25 07:16 O2 Flow Rate 98 09/17/25 03:16 BMI result Body Mass Index 26.3 Const: Other: Comfortable appearing; opens eyes to verbal stimuli only Resp: Other: Clear to auscultation bilaterally no rales rhonchi or wheezes Cardio: Other: No S4; positive S1-S2; no S3 murmurs rubs or gallops Extrem: Other: No edema bilaterally Objective Data Active Medications Acetaminophen (Acetaminophen 325 Mg Tablet) 650 mg PO Q6H PRN PRN Reason: Pain, Mild 1-3,fever,headache Atropine Sulfate (Atropine Sulfate 1 % Ophth Angélica 2 Ml Bottle) 1 drop SUBLINGUAL Q4H PRN PRN Reason: Secretions Last Admin: 09/22/25 02:52 Dose: 1 drop Documented By: WESLY Diazepam (Diazepam 10 Mg/2 Ml Cartridge) 2.5 mg IVPUSH Q3H PRN PRN Reason: anxiety or seizure Last Admin: 09/26/25 06:30 Dose: 2.5 mg Documented By: SHANDA Morphine Sulfate (Morphine Sulfate 4 Mg/Ml Cartridge) 2 mg IVPUSH Q1H PRN; Protocol PRN Reason: anxiety/restlessness Naloxone HCl (Naloxone Hcl 0.4 Mg/Ml Vial) 0.2 mg IVPUSH Q2M PRN PRN Reason: Excessive sedation or RR < 8 Ondansetron HCl (Ondansetron Hcl 4 Mg/2 Ml Vial) 4 mg IVPUSH Q8H PRN PRN Reason: Nausea and Vomiting Scopolamine (Scopolamine 1.5 Mg Patch.Td.3) 1.5 mg TRANSDERMA Q72H [facility] Last Admin: 09/28/25 09:38 Dose: 1.5 mg Documented By: CRYSTAL Sodium Chloride (0.9 % Sodium Chloride Flush 3 Ml Syringe) 3 ml IVFLUSH QSHIFT [facility] Last Admin: 09/29/25 08:55 Dose: 3 ml Documented By: CRYSTAL Labs 09/15/25 09:01 09/18/25 11:20 Assessment and Plan (1) Acute ischemic stroke: Status: Acute Plan 85-year-old female with history of AFib not on anticoagulation, who presented to hospital after witnessed seizure not relieved by Valium given by EMS, received 5 mg dose of Valium in hospital, work up ultimately revealed a left thalamic acute stroke, complicated by dysphagia, aphasia, abd staph epi bacteremia. 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 Acute left thalamic stroke -TECHNICAL TRAINING SPECIALIST as per family -morphine drip as ordered -Valium 2.5 mg IV q.3 hours p.r.n. agitation or restlessness -scopolamine patch Quality Stroke Does the patient have a stroke diagnosis?: No VTE Prior VTE?: No VTE Risk Level:: Medical - low VTE Device Contraindication: Treatment Not Indicated VTE Drug Contraindication: Treatment Not Indicated
[2025-09-30] MEDS: 0.9 % Sodium Chloride Flush 3 ML SYRINGE IVFLUSH ×3 (07:54→21:14)
--- NOTE | 2025-09-30 10:21 | PC.NURSE ---
Pt resting comfortably at this time breaths even and unlabored. This RN went into the room to reposition pt, family expressed that they didn't want pt repositioned at this time since shes was resting comfortably. Education on importance of frequent repositioning given, family still declined repositioning at this time.
--- NOTE | 2025-09-30 12:28 | P.PNIM_ITS ---
Subjective Subjective Date of Service: 09/30/25 Interval History: Comfortable appearing. Slow decline Review of Systems Unable to obtain Physical Exam 2 Vital Signs: Vital Signs: Last Vital Signs Temp 97.2 F 09/19/25 07:16 Pulse 69 09/19/25 07:16 Resp 14 09/28/25 10:41 BP 198/94 H 09/19/25 07:16 Pulse Ox 97 09/19/25 07:16 O2 Del Method Room Air 09/19/25 07:16 O2 Flow Rate 98 09/17/25 03:16 BMI result Body Mass Index 26.3 Const: Other: Comfortable appearing; opens eyes to verbal stimuli only Resp: Other: Clear to auscultation bilaterally no rales rhonchi or wheezes Cardio: Other: No S4; positive S1-S2; no S3 murmurs rubs or gallops Extrem: Other: No edema bilaterally Objective Data Active Medications Atropine Sulfate (Atropine Sulfate 1 % Ophth Angélica 2 Ml Bottle) 1 drop SUBLINGUAL Q4H PRN PRN Reason: Secretions Last Admin: 09/22/25 02:52 Dose: 1 drop Documented By: WESLY Diazepam (Diazepam 10 Mg/2 Ml Cartridge) 2.5 mg IVPUSH Q3H PRN PRN Reason: anxiety or seizure Last Admin: 09/26/25 06:30 Dose: 2.5 mg Documented By: SHANDA Morphine Sulfate (Morphine Sulfate 4 Mg/Ml Cartridge) 2 mg IVPUSH Q1H PRN; Protocol PRN Reason: anxiety/restlessness Last Admin: 09/30/25 11:38 Dose: 2 mg Documented By: BRADY Naloxone HCl (Naloxone Hcl 0.4 Mg/Ml Vial) 0.2 mg IVPUSH Q2M PRN PRN Reason: Excessive sedation or RR < 8 Ondansetron HCl (Ondansetron Hcl 4 Mg/2 Ml Vial) 4 mg IVPUSH Q8H PRN PRN Reason: Nausea and Vomiting Scopolamine (Scopolamine 1.5 Mg Patch.Td.3) 1.5 mg TRANSDERMA Q72H [facility] Last Admin: 09/28/25 09:38 Dose: 1.5 mg Documented By: CRYSTAL Sodium Chloride (0.9 % Sodium Chloride Flush 3 Ml Syringe) 3 ml IVFLUSH QSHIFT [facility] Last Admin: 09/30/25 07:54 Dose: 3 ml Documented By: BRADY Labs 09/15/25 09:01 09/18/25 11:20 Assessment and Plan (1) Acute ischemic stroke: Status: Acute Plan 85-year-old female with history of AFib not on anticoagulation, who presented to hospital after witnessed seizure not relieved by Valium given by EMS, received 5 mg dose of Valium in hospital, work up ultimately revealed a left thalamic acute stroke, complicated by dysphagia, aphasia, abd staph epi bacteremia. 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 Acute left thalamic stroke -GRADES 6 THROUGH 8 TEACHER as per family -morphine drip as ordered -Valium 2.5 mg IV q.3 hours p.r.n. agitation or restlessness -scopolamine patch Quality Stroke Does the patient have a stroke diagnosis?: No VTE Prior VTE?: No VTE Risk Level:: Medical - low VTE Device Contraindication: Treatment Not Indicated VTE Drug Contraindication: Treatment Not Indicated
[2025-10-01] MEDS: 0.9 % Sodium Chloride Flush 3 ML SYRINGE IVFLUSH ×2 (10:24→12:25)
--- NOTE | 2025-10-01 11:42 | MHC.CM.PN ---
Addendum entered by Amie Loredo RN 10/01/25 13:54: Per hospice, will admit GIP. Original Note: Per RN - increased need for morphine. Message to hospice who will evaluate for GIP.
--- NOTE | 2025-10-01 14:05 | PM.DS ---
DS: Providers Provider Date of admission: 09/12/25 15:58 Date of discharge: 10/01/25 Primary care physician: Buster Hyde MD Consults: 09/12/25 16:27 Consult to Neurology Routine Consulting Provider: [facility] Reason for consultation: breakthrough seizure Has provider been notified: No 09/12/25 16:29 Consult to Wound Care Routine Consulting Provider: [facility] W[facility] Care Management Reason for consultation: sacral wound 09/13/25 09:47 Consult to Infectious Diseases Routine Consulting Provider: [facility] Reason for consultation: Bacteremia Has provider been notified: No DS: Diagnosis Discharge Diagnosis (1) Acute ischemic stroke: Status: Acute DS: Summary Hospital Course Hospital Course: 85-year-old female with past medical history significant for dementia who was brought in by ambulance for witnessed seizure lasting at least 20 minutes, failed 2 doses of 5 mg Versed by EMS, the ED patient received additional 5 mg of Valium and levetiracetam load. Labs showing WBC 8.7, hemoglobin 16.8, hematocrit 50.1, anion gap 17, lactic acid 2.6, troponin 31.5, beta hydroxybutyrate 2.8, UA with ketones over 160, head CT with no acute intracranial findings with moderate atrophy like changes in white matter disease. Patient at this time patient nonverbal, grunting to stimuli, with tremors, history was obtained through chart review and speaking with daughter at bedside. Refers that her brother has power of senior trial attorney for medical decision making. Hospital Course Patient admitted to general medical floor and continued to decline. Discussion was had with family who opted for comfort measures all the. At this time she has been treated as GI IP hospice and morphine drip will be started Time Attestation Discharge Coordination Time (in mins): 35 Quality: Safe Use of Opioids Does Pt have an Active Cancer Diagnosis on the Problem List?: No Quality: Stroke Does the patient have a stroke diagnosis?: Yes Reason for No Anti-thrombotic at DC: Not indicated Reason for No Anticoagulant at DC: Not indicated Reason Not Initiating IV-Tpa: Not indicated Reason for No Anti-thrombotic by Day Two: Not indicated Reason for No Statin at DC: Not indicated Physical Exam Vital Signs: Vital Signs: Last Vital Signs Temp 97.2 F 09/19/25 07:16 Pulse 69 09/19/25 07:16 Resp 14 09/28/25 10:41 BP 198/94 H 09/19/25 07:16 Pulse Ox 97 09/19/25 07:16 O2 Del Method Room Air 09/19/25 07:16 O2 Flow Rate 98 09/17/25 03:16 BMI result Body Mass Index 26.3 Const: Other: Unresponsive Resp: Other: Clear to auscultation bilaterally no rales rhonchi or wheezes Cardio: Other: No S4; positive S1-S2; no S3 murmurs rubs or gallops Extrem: Other: No edema bilaterally DS: Data Data Completed and Pending Completed studies during hospitalization [Text1]: Procedures Extirpation of Matter from Left Upper Leg Subcutaneous Tissue and Fascia, Open Approach (01/16/24) Release Left Upper Leg Muscle, Open Approach (01/16/24) Reposition Left Lower Femur with Intramedullary Internal Fixation Device, Percutaneous Approach (01/06/24) Restriction of Left Femoral Artery with Intraluminal Device, Percutaneous Approach (01/16/24) Transfusion of Nonautologous Red Blood Cells into Peripheral Vein, Percutaneous Approach (01/16/24) Discharge Plan Discharge Anticipated Discharge Date/Time: 10/01/25 14:01 Patient Disposition: Hospice - Medical Facility Discharge Diagnosis: End-stage dementia Referrals: Buster Hyde MD [Primary Care Provider, Internal Medicine] - 1 Week Discharge Medications: New scopolamine base [Transderm-Scop] 1 mg over 3 days Patch 3 Day 1.5 mg transdermal Q72H Qty: 1 0RF Discontinued acetaminophen 500 mg Tablet 1,000 mg PO Q4H PRN (Reason: Fever Or Pain) Discharge Orders: Discharge Order (Routine); Ordered 10/01/25 Ordered By: Matteo Ambrose Diet: hospice Activity on Discharge: hospice Stand Alone Forms: Patient Portal Discharge page Print Language: Spanish Care Plan Goals: Hospice Health Concerns: Hospice Plan of Treatment: Hospice Assessment: See discharge summary
== END 2025-10-01 14:19 | disposition hospice, inpatient (51) | DRG 64 ==
LOC: HO.ED 12:28 → HO.EDOVER 16:02 → HO.IMC 16:47 → HO.S3 09-16 17:53
PROVIDERS: Internal Medicine; Physician Assistant; Student in an Organized Health Care Education/Training Program; Admitting Provider Student in an Organized Health Care Education/Training Program; Emergency Provider Emergency Medicine; PCP Internal Medicine; Visit Provider Hospitalist
DX: I63.9 Cerebral infarction, unspecified (principal); G92.8 Other toxic encephalopathy; L89.153 Pressure ulcer of sacral region, stage 3; E87.21 Acute metabolic acidosis; R13.10 Dysphagia, unspecified; I73.9 Peripheral vascular disease, unspecified; E83.42 Hypomagnesemia; Z66 Do not resuscitate; Z51.5 Encounter for palliative care; E86.0 Dehydration; F03.C0 Unspecified dementia, severe, without behavioral disturbance, psychotic disturbance, mood disturbance, and anxiety; E87.6 Hypokalemia; T42.4X5A Adverse effect of benzodiazepines, initial encounter; Z74.01 Bed confinement status; Z79.899 Other long term (current) drug therapy
CPT/HCPCS: 36415; 70450; 70551; 71045; 80048; 80051; 80053; 80061; 80307; 81001; 82010; 82550; 82803; 82947; 83605; 83690; 83735; 84443; 84484; 85025; 85610; 87040; 87147; 87205; 87493; 92526; 92610; 93005; 95816; 99285; J0696; J1644; J1953; J2270; J2470; J3360; J3373; J3374; J3475; J3480; J7120

== ENCOUNTER → 2025-09-12 12:03 | Outpatient (BNV) | payer MEDICARE, SELFPAY | PROVIDERS: Admitting Provider Student in an Organized Health Care Education/Training Program; Emergency Provider Emergency Medicine; Visit Provider Internal Medicine Cardiovascular Disease | DX: R94.31 Abnormal electrocardiogram [ECG] [EKG] (principal); R56.9 Unspecified convulsions | CPT/HCPCS: 93010 ==

== ENCOUNTER → 2025-09-12 12:05 | Outpatient (BNV) | payer MEDICARE, SELFPAY | PROVIDERS: Emergency Provider Emergency Medicine; Visit Provider Radiology Diagnostic Radiology | DX: R56.9 Unspecified convulsions (principal); R06.00 Dyspnea, unspecified | CPT/HCPCS: 70450; 71045 ==

== ENCOUNTER 2025-09-12 15:58 | Outpatient (BNV) | payer MEDICARE, SELFPAY | END 2025-09-13 12:34 | PROVIDERS: Admitting Provider Student in an Organized Health Care Education/Training Program; Emergency Provider Emergency Medicine; Visit Provider Radiology Diagnostic Radiology | DX: I63.9 Cerebral infarction, unspecified (principal); R90.82 White matter disease, unspecified | CPT/HCPCS: 70551 ==

== ENCOUNTER → 2025-09-12 15:58 | Outpatient (BNV) | payer MEDICARE, SELFPAY | PROVIDERS: Admitting Provider Student in an Organized Health Care Education/Training Program; Emergency Provider Emergency Medicine; Visit Provider Psychiatry & Neurology Neurology | DX: G40.909 Epilepsy, unspecified, not intractable, without status epilepticus (principal) | CPT/HCPCS: 95816; 99222 ==

== ENCOUNTER → 2025-09-12 15:58 | Outpatient (BNV) | payer MEDICARE, SELFPAY | PROVIDERS: Admitting Provider Student in an Organized Health Care Education/Training Program; Emergency Provider Emergency Medicine; Visit Provider Internal Medicine | DX: R78.81 Bacteremia (principal) | CPT/HCPCS: 99222 ==

== ENCOUNTER → 2025-09-12 15:58 | Outpatient (BNV) | payer MEDICARE, SELFPAY | PROVIDERS: Admitting Provider Student in an Organized Health Care Education/Training Program; Emergency Provider Emergency Medicine; Visit Provider Student in an Organized Health Care Education/Training Program | DX: G40.909 Epilepsy, unspecified, not intractable, without status epilepticus (principal); L89.153 Pressure ulcer of sacral region, stage 3; G93.41 Metabolic encephalopathy | CPT/HCPCS: 99222; 99233; 99499 ==

== ENCOUNTER 2025-10-01 14:17 | Inpatient (IN) | payer OTHER, SELFPAY ==
--- NOTE | 2025-10-01 14:19 | MHC.CM.PN ---
Patient is now GIP.
--- NOTE | 2025-10-01 14:22 | PM.IMHP ---
History of Present Illness Date of Service: 10/01/25 Chief Complaint: GIP hospive 85-year-old female presents [facility] with confusion and decreased responsiveness. Found to have an acute ischemic stroke. After several days patient continued to decline and discussion was had with family. 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 We will be admitted to hospice on morphine drip/scopolamine patch/Valium p.r.n. Review of Systems Review of Systems: Unable to obtain [facility] Medical History Obesity (BMI 30-39.9) Dementia with behavioral problem Delirium due to another medical condition PAD (peripheral artery disease) Dementia Paroxysmal atrial fibrillation Peripheral neuropathy TIA (transient ischemic attack) Foot drop Carotid artery stenosis Afib Hyperlipidemia Anemia Hypertension Surgical History S/P aortogram with runoff H/O foot surgery History of bilateral knee replacement H/O tubal ligation History of cholecystectomy H/O endarterectomy Social History Household Members: Family Household Members Other:: pt states home with son and also states snf so unsure Housing: House Alcohol intake: former Comment: as per previous Patient Tobacco Use Status: Never used Tobacco Advance Directives: Yes Advance Directives on File: Yes Advance Directives Date on File: 01/13/24 service: No Meds Allergies Allergy/AdvReac Type Severity Reaction Status Date / Time gentamicin (GENTAMICIN) Allergy Intermediate SWELLING Verified 09/12/25 11:59 sulfamethoxazole (From Allergy Intermediate RASH Verified 09/12/25 11:59 BACTRIM) trimethoprim (From BACTRIM) Allergy Intermediate RASH Verified 09/12/25 11:59 Active Medications: Current Medications Acetaminophen (Acetaminophen 325 Mg Tablet) 650 mg PO Q4H PRN PRN Reason: Fever >/= 100, Pain, mild 1-3 Docusate Sodium (Docusate Sodium 100 Mg Capsule) 100 mg PO BEDTIME MARKEL Morphine Sulfate (Morphine Sulfate/Ns) 100 mg in 100 mls @ 0 mls/hr IVCONT .Q0M MARKEL; Protocol Ondansetron HCl (Ondansetron Odt 4 Mg Tab.Rapdis) 4 mg TRANSLINGU Q8H PRN PRN Reason: Nausea and Vomiting Physical Exam Const: Other: Unresponsive Resp: Other: Clear to auscultation bilaterally no rales rhonchi or wheezes Cardio: Other: No S4; positive S1-S2; no S3 murmurs rubs or gallops GI: Other: Soft nontender nondistended normoactive bowel sounds Extrem: Other: No edema bilaterally Assessment and Plan (1) Acute ischemic stroke: Status: Acute Plan 85-year-old female suffered an acute ischemic stroke with poor response to therapy. Admitted GI IP hospice. -morphine drip -PRN Valium as needed for agitation/anxiety -scopolamine patch Quality Stroke Does the patient have a stroke diagnosis?: No VTE Prior VTE?: No VTE Risk Level:: Medical - moderate - high VTE Device Contraindication: Treatment Not Indicated VTE Drug Contraindication: Treatment Not Indicated
[2025-10-01] MEDS: Morphine Sulfate/NS 100 MG/100 ML PLAST..BAG IVCONT (15:12)
--- OUTSIDE RECORDS SUMMARY | 2025-10-01 15:44 | XMS_ITS | Encounter Summary ---
Author Organization [facility] Address [address] [place] [id number] Phone Care Team Providers Care [place] Name Role Phone Tricia Kaur MD Primary Care Provide r Lucien Le MD Primary Care Provider + Reason for Referral * Physical Therapy (Routine) - Closed Specialty Diagnoses / Procedures Referred By Nam goodwin Referred To Contact Physical Therapy Diagnoses Encounter for rehabilitation Sanjuanita Huggins MD Phone: tel: fax: mailto:[email or web address] [address] [place] [address] Phone: tel: Referral ID Status Reason Start Date Expiration Date Visits Re quested Visits Authorized [id number] Closed 12/18/2017 12/18/2018 [id number] [phone] Encounter Details Date Type Department Care Team (Latest Contact Info) Description 12/18/2017 Transcribe Orders [facility] [address] [place] [phone] Homar Gann MD [address] [place] [id number] Encounter for rehabilitation (Primary Dx) Social History [...] Diagnoses Orde r Schedule Ambulatory referral to [facility] Physical Therapy Outpatient Referral Routine Encounter for rehabilitation Ordered: 12/18/2017 documented as of this encounter Visit Diagnoses Diagnosis Encounter for rehabilitation- Primary documented in this encounter Care Teams [place] Relationship Specialty Start Date End Date Tricia Kaur MD [address] [place] [id number] PCP - General Internal Medicine 12/18/17 10/31/21 Lucien Le MD [address] [place] [id number] PCP - General Internal Medicine 11/01/21 documented as of this encounter Additional Source Comments The information contained in this document represents components of the legal health record. It is not the complete legal health record.[facility]
--- OUTSIDE RECORDS SUMMARY | 2025-10-01 15:44 | XMS_ITS | Encounter Summary ---
Author Organization [facility] Address [address] [place] [phone] Phone Care Team Providers Care Economics Faculty Member Name Role Phone Tricia Kaur MD Primary Care Provide r Lucien Le MD Primary Care Provider + Reason for Referral * Physical Therapy (Routine) - Closed Specialty Diagnoses / Procedures Referred By Nam goodwin Referred To Contact Physical Therapy Diagnoses Encounter for rehabilitation System, Provider Not In, PhD [id number] [place] [address] Phone: tel: Referral ID Status Reason Start Date Expiration Date Visits Re quested Visits Authorized [id number] Closed 08/08/2018 08/08/2019 99 [phone] Encounter Details Date Type Department Care Team (Latest Contact Info) Description 08/08/2018 Transcribe Orders [facility] [address] [place] [phone] Aldo Morgan MD [address] [place] [address] Encounter for rehabilitation (Primary Dx) Social History [...] Diagnoses Orde r Schedule Ambulatory referral to [facility] Physical Therapy Outpatient Referral Routine Encounter for rehabilitation Ordered: 08/08/2018 documented as of this encounter Visit Diagnoses Diagnosis Encounter for rehabilitation- Primary documented in this encounter Care Teams Economics Faculty Member Relationship Specialty Start Date End Date Tricia Kaur MD [address] [place] [phone] PCP - General Internal Medicine 12/18/17 10/31/21 Lucien Le MD [address] [place] [phone] PCP - General Internal Medicine 11/01/21 documented as of this encounter Additional Source Comments The information contained in this document represents components of the legal health record. It is not the complete legal health record.[facility]
--- OUTSIDE RECORDS SUMMARY | 2025-10-01 15:44 | XMS_ITS | Clinical Summary ---
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 Sulfa (Sulfonamide Antibiotics) Nausea And Vomiting 07/01/2007 nausea and metal taste in mouth Medications silver sulfADIAZINE (SILVADENE, SSD) 1 % cream APPLY TOPICALLY TO THE AFFECTED AREA TWICE DAILY 50 g 1 4 Active gabapentin (NEURONTIN) 100 mg capsule 1 cap in AM, 1 cap at noon and 2 caps at night 4 Active lisinopriL (PRINIVIL,ZESTRIL ) 10 mg tablet Take 1 Tablet by mouth daily. 4 Active lisinopriL (PRINIVIL,ZESTRIL ) 5 mg tablet Take 1 Tablet by mouth daily. 4 Active memantine (NAMENDA) 5 mg tablet Take 1 Tablet by mouth 2 times daily for 180 days. 4 Active mirabegron (Myrbetriq) 50 mg tablet extended release 24 hr 24 hr tablet Take 1 Tablet by mouth daily. 4 Active nitrofurantoin, macrocrystal-mono hydrate, (MACROBID) 100 mg capsule Take 1 Capsule by mouth 2 times daily. 4 Active cholecalciferol (VITAMIN D-3) 25 mcg (1,000 unit) tablet Take 1,000 Units by mouth daily. 4 Active ferrous sulfate 325 mg (65 mg iron) EC tablet Take 1 Tablet by mouth daily. 4 Active docusate sodium (COLACE) 100 mg capsule Take 1 Capsule by mouth daily. Active multivitamin with iron Take by mouth. 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 Her [id number] score is 4. Had a long conversation with patient's son who is her healthcare proxy about the risks and benefits of anticoagulation. They decided as a family that she would benefit from anticoagulation. She had 1 other mechanical fall since her discharge and as such has taken corrective action to ensure that she does not take a shower without her home health aide present. I commended her for her safety efforts. She also walks with a walker utilizes motorized scooter any other time that she is out of her apartment. For now, we will continue rate control strategy with beta-donavan along with anticoagulation with apixaban. She has not had any bleeding issues. She does understand that if she falls and hits her head she needs to seek medical attention for evaluation. The patient's daughter is present and agrees with this plan as well. Hyperlipidemia 05/22/2022 Overview (10/01/2024): Last Assessment & Plan: Patient's LDL is elevated based on her last check from September 2021. If LDL remains elevated above 70 given her vascular disease, would recommend intensifying statin therapy to atorvastatin. Sigmoid diverticulitis 05/22/2022 Cervical stenosis of spine 04/25/2022 Overview (10/01/2024): 04/18/2022, [facility] neurosurgery, Dr. Ledezma, MRI showed age-related degenerative spondylosis, C4-5 spinal cord compression, C5-6 severe bilateral foraminal stenosis without central compression, discussed completing anterior cervical discectomy and fusion, patient states she would like to talk to her children prior to committing to complete surgery Urge and stress incontinence 09/14/2021 Overview (10/01/2024): Sees urology Hallux rigidus of left foot 08/30/2020 Lumbar compression fracture, sequela 03/31/2020 Overview (10/01/2024): L1 and L2; s/p kyphoplasty (Dr. Lester, [facility]) Closed nondisplaced fracture of greater trochanter of left femur with routine healing 08/25/2019 Overview (10/01/2024): 07/23-08/04 [place] admission Tearing of muscle 01/15/2019 Overview (10/01/2024): Left iliopsoas tendon tear Arthritis of midfoot 10/20/2018 Carotid artery stenosis, asymptomatic, bilateral 05/13/2018 Overview (10/01/2024): Dr Mg Montiel Overactive bladder 05/27/2012 Overview (10/01/2024): Sees Uro. Currently asymptomatic. IBS (irritable bowel syndrome) 08/02/2011 Primary hypertension 09/26/2006 Overview (10/01/2024): Last Assessment & Plan: Patient has well-controlled blood pressure on current regimen of beta-donavan and MOISÉS inhibitor. Continue current treatment plan Pure hypercholesterolemia 09/26/2006 Obesity (BMI 30.0-34.9) 09/04/2005 Overview (10/01/2024): Lost wt with [employer], 40 lb in 6 yrs Immunizations Immunization Administration Dates Next Due Influenza Quadravalent, MDCK , 0.5ml, with preservative (Flucelvax) 6mo and older 07/25/2017 Influenza trivalent, 0.5mL ( Fluad) 65yo and older 08/18/2018 Influenza trivalent, 0.5mL, preservative free (Fluarix; FluLaval; Fluzone) ages 6mo and older (Afluria) 3 years and older 06/21/2020,07/24/2019,07/19/2016,07/15,06/17/2013,09/21/2012,08/02/2011 ,09/26/2006,08/08/2005 Influenza trivalent, with pr eservative (Fluzone; Afluria) 6mo and older 07/17/2015 Influenza, Unspecified 06/22/2022,07/22/2019,09/2018 Pneumococcal conjugate 13 va lent (Prevnar 13, PCV13) 2mo and older 07/25/2017 Pneumococcal polysaccharide 23 valent (Pneumovax 23) 2yo and older 09/26/2006 Td Tetanus diptheria (Tdvax) 7yo and older 10/22/2019 Tdap Tetanus diptheria acell ular pertussis (Boostrix; Adacel) 7yo and older 05/30/2009 Surgical History Surgery Date Site/Laterality Comments CHOLECYSTECTOMY PROCEDURE: HISTORICAL CHOLECYSTECTOMY ANKLE SURGERY PROCEDURE: HISTORICAL ANKLE SURGERY; COMMENT: broken ankle TUBAL LIGATION PROCEDURE: HISTORICAL TUBAL LIGATION CAROTID ENDARTERECTOMY 11/09/2014 PROCEDURE: HISTORICAL CAROTID ENDART TOTAL KNEE ARTHROPLASTY Right PROCEDURE: CT ARTHRP KNE CONDYLE&PLATU MEDIAL&LAT COMPARTMENTS; COMMENT: 2015 CATARACT EXTRACTION Bilateral PROCEDURE: HISTORICAL CATARACT REMOVAL FOOT SURGERY 09/17/2018 PROCEDURE: HISTORICAL FOOT SURGERY; COMMENT: fusion for midfoot arthritis OTHER SURGICAL HISTORY 03/2020 PROCEDURE: CT VERTEBROPLASTY EACH ADDL CERVICOTHOR/LUMBOSACRAL; COMMENT: kyphoplasty l1 l2 Medical History Medical History Date Comments Obesity, unspecified DX:Obesity, unspecified Essential hypertension, benign 09/26/2006 D X:Essential hypertension, benign Pure hypercholesterolemia 09/26/2006 DX:Pur e hypercholesterolemia Cholecystitis, unspecified 09/26/2006 DX:Ch olecystitis, unspecified Tubal ligation status 09/26/2006 DX:Tubal l igation status DJD (degenerative joint dise ase), ankle and foot, left 10/20/2018 DX:DJD (degenerative joint d isease), ankle and foot, left Arthritis of midfoot 10/20/2018 DX:Arthriti s of midfoot Closed nondisplaced fracture of greater trochanter of left femur with routine healing 08/25/2019 DX:Closed nondisplaced fract ure of greater trochanter of left femur with routine healing; COMMENT: 07/23-08/04 [facility] admission Urge and stress incontinence 09/14/2021 DX: Urge and stress incontinence; COMMENT: Sees urology Family History Medical History Relation Name Comments Other cancer Brother pancreatic No Known Problems Daughter Lung cancer Father No Known Problems Maternal Grandfather No Known Problems Maternal Grandmother Stroke Mother age 85 No Known Problems Other No Known Problems Paternal Grandfather No Known Problems Paternal Grandmother Stroke Sister age 71 Relation Name Status Comments Brother Daughter Father (Age 74) Maternal Grandfather Maternal Grandmother Mother Other Paternal Grandfather Paternal Grandmother Sister Social History Tobacco Use Types Packs/Day Years Used Date Smoking Tobacco: Never Smokeless Tobacco: Never Alcohol Use Standard Drinks/Week Comments Yes 0 (1 standard drink = 0.6 oz pur e alcohol) Comments Unknown Sex and Gender Information Value Date Recorded Sex Assigned at Not on file Legal Sex Female 8:57 PM EST Gender Identity Not on file Sexual Orientation Not on file Last Filed Vital Signs Vital Sign Reading Time Taken Comments Blood Pressure 126/74 07/29/2024 4:04 PM EDT Pulse 76 07/29/2024 4:04 PM EDT Temperature - - Respiratory Rate - - Oxygen Saturation - - Inhaled Oxygen Concentration - - Weight 96.6 kg (213 lb) 05/07/2024 1:58 PM EDT Height 165.1 cm (5' 5 ) 07/29/2024 4:04 PM EDT Body Mass Index 35.44 05/07/2024 1:58 PM EDT Plan of Treatment Health Maintenance Due Date Last Done Comments Zoster Vaccines (1 of 2) 1990 RSV Immunization Adult Patients (1 - 1-dose 75+ series) 2015 Medicare Annual Wellness Visit 09/15/2022 Osteoporosis Screening (Bone Density Screening) 09/15/2022 Social Influencers of Health Screening 09/15/2022 Depression Screening 10/07/2024 12/26/2023 Falls Risk Assessment 12/25/2024 12/26/2023 Hypertension/CHF/CAD Annual BMP Blood Test 03/24/2025 03/24/2024, 03/24/2024 COVID-19 Vaccine ( season) 2025 02/05/2022, 07/22/2021, 11/01/2020, Additional history exists Influenza Vaccine (#1) 2025 , 07/19/2021, 06/21/2020, Additional history exists Cholesterol Screening (Lipid Panel) 05/24/2028 05/24/2023 DTaP,Tdap,and Td Vaccines (3 - Td or Tdap) 10/22/2029 10/22/2019, 05/30/2009 Pneumococcal Vaccine: 50+ Years Completed 07/25/2017, 09/26/2006 HIB Vaccines Aged Out No longer eligi ble based on patient's age to complete this topic HPV Vaccines Aged Out No longer eligi ble based on patient's age to complete this topic Hepatitis A Vaccines Aged Out No long er eligible based on patient's age to complete this topic Hepatitis B Vaccines Aged Out No long er eligible based on patient's age to complete this topic IPV Vaccines Aged Out No longer eligi ble based on patient's age to complete this topic MMR Vaccines Aged Out No longer eligi ble based on patient's age to complete this topic Meningococcal ACWY Vaccine Aged Out N o longer eligible based on patient's age to complete this topic Meningococcal B Vaccine Aged Out No l onger eligible based on patient's age to complete this topic RSV Immunization Patients Under 20 months Aged Out No longer eligible based on patient's age to complete this topic Varicella Vaccines Aged Out No longer eligible based on patient's age to complete this topic Procedures Procedure Name Priority Date/Time Associated Diagnosis Comments ANNUAL BMP BLOOD TEST Routine 03/24/2024 DEPRESSION SCREENING Routine 12/26/2023 FALLS RISK ASSESSMENT Routine 12/26/2023 LIPID PANEL Routine 05/24/2023 from Last 3 Months or Most Recently Relevant to Health Maintenance Results * Annual BMP Blood Test (03/24/2024) Pathologist Counts include 234 beds at the [facility] Annual BMP Blood Test abstracted [facility] Provider HEALTH MAINTENANCE Final Result * Falls Risk Assessment (12/26/2023) [facility] Falls Risk Assessment abstracted [facility] Provider HEALTH MAINTENANCE Final Result * Depression Screening (12/26/2023) Pathologist Counts include 234 beds at the [facility] Depression Screening abstracted [facility] Provider HEALTH MAINTENANCE Final Result * (ABNORMAL) Lipid panel (05/24/2023) Pathologist [facility] LDL/HDL Ratio 3 0 - 4 Triglycerides 47 0 - 150 mg/dL Cholesterol 206(A) 0 - 200 mg/dL HDL 82 >=40 mg/dL LDL Cholesterol 115(A) 0 - 100 mg/dL Blood Venous blood specimen / Unknown Result [facility] Provider LAB BLOOD ORDERABLES Karina l Result from Last 3 Months or Most Recently Relevant to Health Maintenance Care Teams Medical Photographer Relationship Specialty Start Date End Date Buster Hyde MD [address] [place] [address] PCP - General Internal Medicine 03/20/22
--- OUTSIDE RECORDS SUMMARY | 2025-10-01 15:44 | XMS_ITS | Encounter Summary ---
Author Organization [facility] Address [address] [place] [address] Phone Care Team Providers Care Italian Lecturer Name Role Phone Tricia Kaur MD Primary Care Provide r Lucien Le MD Primary Care Provider + Reason for Referral * Physical Therapy (Routine) - Closed Specialty Diagnoses / Procedures Referred By Nam goodwin Referred To Contact Physical Therapy Diagnoses Encounter for rehabilitation System, Provider Not In, PhD [facility] [id number] [place] [address] Phone: tel: Referral ID Status Reason Start Date Expiration Date Visits Re quested Visits Authorized [id number] Closed 04/15/2018 10/06/2018 99 [phone] Encounter Details Date Type Department Care Team (Latest Contact Info) Description 04/15/2018 Transcribe Orders [facility] Physical Therapy Clinic [address] [place] [id number] Renee Chi PA [address]a [address] [address] Encounter for rehabilitation (Primary Dx) Social History [...] Diagnoses Orde r Schedule Ambulatory referral to [facility] Physical Therapy Outpatient Referral Routine Encounter for rehabilitation Ordered: 04/15/2018 documented as of this encounter Visit Diagnoses Diagnosis Encounter for rehabilitation- Primary documented in this encounter Care Teams Italian Lecturer Relationship Specialty Start Date End Date Tricia Kaur MD [address] [place] [address] PCP - General Internal Medicine 12/18/17 10/31/21 Lucien Le MD [address] [place] [phone] PCP - General Internal Medicine 11/01/21 documented as of this encounter Additional Source Comments The information contained in this document represents components of the legal health record. It is not the complete legal health record.[facility]
--- OUTSIDE RECORDS SUMMARY | 2025-10-01 15:44 | XMS_ITS | Clinical Summary ---
Author Organization [facility] Address [address] [place] [address] Phone Care Team Providers Care Sprayer Automatic Spray Machine Name Role Phone Lucien Le MD Primary [...] EDT) SODIUM 141 133 - 146 mmol/L [facility] POTASSIUM 4.2 3.3 - 5.1 mmol/L [facility] CHLORIDE 105 96 - 108 mmol/L [facility] CO2 26 21 - 35 mmol/L [facility] BUN 18 6 - 19 mg/dL [facility] CREATININE 0.60 0.5 - 1.5 mg/dL [facility] GLUCOSE 80 70 - 99 mg/dL [facility] ALBUMIN 3.4(L) 3.9 - 4.8 g/dL [facility] TOTAL PROTEIN 5.7(L) 6.5 - 8.0 g/dL [facility] CALCIUM 8.9 8.4 - 10.3 mg/dL [facility] ALKALINE PHOSPHATASE 106 39 - 117 U/L [facility] TOTAL BILIRUBIN 0.5 0.0 - 1.2 mg/dL [facility] AST 14 0 - 37 U/L [facility] ALT 7 0 - 40 U/L [facility] GLOBULIN 2.3 1 - 4.8 g/dL [facility] EGFR 90 >59 mL/min/1.7 3m2 [facility] Comment:Estimated glomerular filtration rate calculated using the CKD-EPI refit equation. ANION GAP 14 10 - 20 mmol/L [facility] Blood 01/01/2023 6:35 AM EDT 01/01/2023 9:46 AM EDT Rubina Asif MD LAB BLOOD BKR ORDERABLES Final Result [facility] [address] [place], [place] [phone] from Last 3 Months or Most Recently Relevant to Health Maintenance Insurance MEDICARE PART A & B [employer] SUPPLEMENT MEDICARE PART A & B [employer] CROSS MEDEX SUPPLEMENT MEDICARE PART A & B [employer] CROSS MEDEX SUPPLEMENT MEDICARE PART A & B [employer] CROSS MEDEX SUPPLEMENT MEDICARE PART A & B [employer] MEDEX SUPPLEMENT MEDICARE PART A & B [employer] MEDEX SUPPLEMENT MEDICARE PART A & B [facility] MEDEX SUPPLEMENT MEDICARE PART A & B [employer] MEDEX SUPPLEMENT MEDICARE PART A & B [employer] MEDEX SUPPLEMENT Advance Directives For more information, please contact: [phone] (9AM - 5PM Jennifer/[facility], Saturday-Saturday) Documents on File Type Date Recorded Patient Maintenance Mgr Expl anation Healthcare Proxy 10/19/2021 signed heal [facility] proxy Care Teams Sprayer Automatic Spray Machine Relationship Specialty Start Date End Date Lucien Le MD [address] [place] [phone] PCP - General Internal Medicine 11/01/21 Additional Source Comments The information contained in this document represents components of the legal health record. It is not the complete legal health record.[facility]
--- OUTSIDE RECORDS SUMMARY | 2025-10-01 15:44 | XMS_ITS | Patient Health Record ---
[facility] Organization [facility] Address [address] [place] [address] Care Team Providers Care Mat Sewer Name Role Phone Buster Hyde Primary Care Provider UnavailFabio Lepe Unavailable [phone] Allergies Allergen (clinical drug ingredient) Drug/Non Drug Allergy documented on EMR Reaction Allergy Type Onset Date Status atropine Atropine Sulfate Unknown Drug Allergy Active sulfamethoxazole / trimethoprim Bactrim Unknown Drug Allergy Active naproxen Naproxen Unknown Drug Allergy Active gentamicin Gentamicin Unknown Drug Allergy Activ e Reason For Referral No Information Medications Medication SIG (Take, Route, Frequency, Duration) Notes Start Date End Date Status Amoxicillin 875 MG TAKE 1 TABLET BY MOUTH TWICE DAILY UNTIL FINISHED Oral; Duration: 10 prn dental Active Antibiotic 5 days Not-Takshamar lua Walker as directed Active Ondansetron HCl 4 MG Oral; Duration: 5 Not-Taking Aspir-81 81 MG 1 tablet Orally Once a day Not-Taking ASO Ankle/Foot Stablizing AFO As directed Wear Daily; Duration: as needed Not-Taking Ibuprofen 600 MG 1 tablet with food or milk as needed Orally Three times a day PRN Not-Taking hydroCHLOROthiazide 12.5 MG 1 tablet in the morning Orally Once a day Not-Taking Clindamycin HCl 300 MG Oral; Duration: 14 Not-Taking Santyl 250 UNIT/GM APPLY EXTERNALLY TO THE AFFECTED AREA ON FOOT EVERY DAY External; Duration: 15 Not-Taking Nitrofurantoin Monohyd Macro 100 MG Oral; Duration: 7 Not-Taking amLODIPine Besylate 5 MG TAKE 1 TABLET B Y MOUTH DAILY Oral; Duration: 30 Not-Taking Multivitamin Adult - Orally Active Zinc Active Simvastatin 40 MG 1 tablet in the evening Orally Once a day Active Eliquis Active Calcium + D Active Acetaminophen Extra Strength 500 MG TK 2 TS PO TID Diagnosis Unavailable Oral; Duration: 30 prn Active Aspirin 81 MG 1 tablet Orally Not-Taking Myrbetriq Active Magnesium Active Lisinopril 10 MG 1 tablet Orally Once a day Active Gabapentin Active Physical Therapy . . . 2-3x/week; Duration: 3-4 weeks 06/21/2020 Not-Taking oxyBUTYnin Chloride ER 30 mg 1 tablet Orally Once a day Not-Taking Immunizations Vaccine Route Administration Date Status Comme nts COVID-19 Pfizer BioNTech Vaccine Unknown 10/31/2020 Adm inistered Social History Tobacco Use: Social History Observation Description Date Details (start date - stop date) Never Smoker NA - NA Tobacco Use/Smoking Question Answer Notes Are you a: nonsmoker Additional Findings: Tobacco Non-User Current no n-smoker Alcohol Screen Question Answer Notes Did you have a drink containing alcohol in the p ast year? No Points 0 Interpretation Negative Tobacco use other than smoking: Question Answer Notes Are you an other tobacco user? No Problems Problem Type SNOMED Code ICD Code Onset Dates Problem Status W/U Status Risk Notes Problem Localized, primary osteoarthritis of the ankle and/or foot (322951200) Primary osteoarthritis, right ankle and foot (M19.071) Active confirmed Problem Localized, primary osteoarthritis of the ankle and/or foot (658577395) Primary osteoarthritis, left ankle and foot (M19.072) Active confirmed Problem Bilateral atherosclerosis of arteries of lower limbs (disorder) (90843533043249470 ) Unspecified atherosclerosis of [place] arteries of extremities, bilateral legs (I70.203) Active confirmed Problem Acquired hammer toe of right foot (2785656711395021) Other hammer toe(s) (acquired), right foot (M20.41) Active confirmed Problem Acquired hammer toe of left foot (1537237384183331) Other hammer toe(s) (acquired), left foot (M20.42) Active confirmed Plan Of Treatment Pending Test Test Name Order Date X ray : Foot, left 3V 06/04/2018 X ray : Foot, left 3V 06/24/2019 X ray : Foot, left 3V 06/21/2020 X ray : Foot, right 3V 06/04/2018 X ray : Foot, right 3V 06/29/2022 X ray : Foot, right 3V 09/17/2022 12465-BIXXLPO NAIL, 6 OR MORE 09/03/2018, J0702- INJECT or DRAIN, JOINT/BUR SA 06/04/2018 35059-YRCG SKIN LESIONS, 2 TO 4 02/18/20 21 07096-LCMQ SKIN LESIONS, 2 TO 4 07/28/20 02822-LJYR SKIN LESIONS, 2 TO 4 10/17/19 55876-BCGJ SKIN LESIONS, 2 TO 4 01/13/20, I9205-RGDNI/INJECT, JOINT/BURSA 0 12/17/2023 46185-Apox. Subungual Hematoma 4 24471- Nail Unit Biopsy 06/04/2018 Insurance Providers Payer Name Payer Address Payer Phone Subscriber Number Group Number Insured Name Patient Relationship to Insured Coverage Start Date Coverage End Date Medicare National Govt Sv[employer] [address] [facility] [place] [address] [id number] Shonda Hernadez Self - patient is the insured 5 [employer] Blue Shield [address] [place] [address] [phone] [id number] Shonda Hernadez Self - patient is the insured Medical (General) History Medical History History ICD Code Atrial fibrillation Back,Hip,and Knee pain Broken bones Cataracts Chicken pox Diverticulitis Fall Risk Gall bladder problems High blood pressure Hypercholesterolemia Irritable bowel syndrome Joint implants/screws Measles Mumps osteoarthritis Surgical History Surgery Date(Month/Year) right knee replacement 07/2017 left knee replacement 03/2018 ankle surgery, plate installed 1999 gall bladder 2006 carotid artery 2012 Plate put in bottom of foot due to midfo ot arthritis 09/2018 Left foot surgery 09/21/20 botox bladder injections [id number] Hospitalization History Reason Date(Month/Year) [facility] [place]/ [facility] - Fall - tear in muscle 07/07 03/25 Urgent Care 12/05/19 [facility] for rehab 09/25 Out pt therapy, [facility], [facility] in [place] 10/27 [facility]- chest pain, abdomen pain, 5 day sta y 2021 fell, Salma Valdes for 2 weeks 2021 [facility] -Falls 6 x times 3 days Rehab 3weeks 2794-1660 UTI given antibiotics 2021 [facility] [place], fell 11/2022 [facility] 05/2023
--- OUTSIDE RECORDS SUMMARY | 2025-10-01 15:44 | XMS_ITS | Data Portability ---
Author Organization [place] [facility] Address [address] [place] [address] Care Team Providers Care Life Skills Coordinator Name Role Phone [facility] Primary Care Provide r Assessment [...] flank pain, no symtpoms of renal sone. [email or web address] Not available 08/10/2022 13:44:55 08/15/2022 08/15/2022 Time On Scene with Patient: 01:00:50 82 YO F patient established with , however new to provider. Patient complains of bilateral itchy red lower extremity. States she has had several surgeries to her left foot which includes bunionectomy in 2018. She is followed by [facility] document preparation specialist as well as cotton wringer. Patient states since surgery she some numbness [...] questions were answered prior to team departure. [email or web address] Not available 08/20/2022 10:30:42 Plan of Treatment Reminders Order Date Submit Date Provider Last Modified By Organization Details Last Modified Time Details Appointments None recorded. Lab urinalysis, dipstick 2021 [facility], [address] [place] [address], [address], 13:06:47 urinary tract pathogens panel, ROMAIN+probe, urine 2021 [facility], [address] [place], [address], 11:19:40 Referral None recorded. Procedures None recorded. Surgeries None recorded. Imaging US, duplex, venous, extremity, limited 2021 [facility] ([facility]), [address] [place] [address], [place], [address], 18:31:15 Medication Orders triamcinolo ne acetonide 0.1 % topical cream 2021 [id number], [address] [place], [address], 13:43:17 nitrofurant oin macrocrysta l 100 mg capsule 2021 [id number], [address] [place], [address], 13:20:29 Patient TargetsNo targets recorded. Patient Instructions Encounter Date Encounter Id Patient Instructions Last Modified By Organization Details Last Modified Time 08/15/2022 [id number] dry skin: care instructions [email or web address] [id number] Not available 08/15/2022 13:43:05 Thank you for yo ur visit with [facility] today. We cannot always find the exact [...] in your condition between 8am-10pm, please call [facility] at [phone] to help navigate your care. Thank you for your visit with [facility] today. We cannot always find the exact [...] in your condition between 8am-10pm, please call [facility] at [phone] to help navigate your care. Please seek [...] in your condition between 8am-10pm, [facility] at [phone] to help navigate your care. [email or web address] [id number] Not available 08/15/2022 13:33:18 Reason for Referral None Reported. Results Created Date Observation Date Name Description Value Unit Range Abnormal Flag Note LastModifiedBy Organization Detail LastModifiedTime 08/10/2008/10/2022 MONICO POOLE UTI- RECUR RENT, PERSI STENT , COMPL ICATE D UTI OBX: SPECI MEN TYPE test result: Urine, Clean Catch, Test Result : PATHOG ENIC DNA DETECT ED#A*F Not Available [facility] [address] [place] [address], [address], 08/14/2022 11:19:40 08/10/20 22 08/10/2022 urina lysis , dipst ick Appearance clear Not Available [facility] - [facility] [address] [place], [address], 08/10/2022 13:03:57 08/10/20 22 08/10/2022 urina lysis , dipst ick Color yellow Not Available [facility] - Home [address] [place], [address], 08/10/2022 13:03:57 08/10/20 22 08/10/2022 urina lysis , dipst ick Glucose (ref: neg Neg Not Available [facility] - [facility] [address] [place], [address], 08/10/2022 13:03:57 08/10/20 22 08/10/2022 urina lysis , dipst ick Bilirubin (ref: neg) Neg Not Available [facility] - [facility] [address] [place], [address], 08/10/2022 13:03:57 08/10/20 22 08/10/2022 urina lysis , dipst ick Ketones (ref: neg) Neg Not Available [facility] [place] [address] [place], [address], 08/10/2022 13:03:57 08/10/20 22 08/10/2022 urina lysis , dipst ick Specific [place] (ref: 1.003 - 1.035) 1.010 Not Available [facility] [place] [address] [place], [address], 08/10/2022 13:03:57 08/10/20 22 08/10/2022 urina lysis , dipst ick Blood (ref: neg) Neg Not Available [facility] [place] [address] [place], [address], 08/10/2022 13:03:57 08/10/20 22 08/10/2022 urina lysis , dipst ick pH (ref: 5.0-7.0) 9.0 Not Available [facility] [place] [address] [place], [address], 08/10/2022 13:03:57 08/10/20 22 08/10/2022 urina lysis , dipst ick Protein (ref: neg) Not Available [facility] [place] [address] [place], [address], 08/10/2022 13:03:57 08/10/20 22 08/10/2022 urina lysis , dipst ick Urobilinogen (ref: 0.2-1.0) 0.2 Not Available [facility] [place] [address] [place], [address], 08/10/2022 13:03:57 08/10/20 22 08/10/2022 urina lysis , dipst ick Nitrites (ref: neg) positi ve Not Available [facility] [place] [address] [place], [address], 08/10/2022 13:03:57 08/10/20 22 08/10/2022 urina lysis , dipst ick Leukocytes (ref: neg) ++ Not Available [facility] [address], [place], [address], 08/10/2022 13:03:57 08/10/20 22 08/10/2022 urina lysis , dipst ick [facility], [address], [place] [address], [id number] Not Available [facility] Home [address], [place], [address], 08/10/2022 13:03:57 08/17/20 22 08/17/2022 venou s [...] 2021 6:23:4 1 PM EST. [email or web address] [address] [facility] [address], [place], [address], 08/18/2022 10:57:41 Result Notes None recorded. Medical [...] % 74 /min 136/64 mm[Hg] Not Available [facility] 12:29:52 Social History Question Answer Notes LastModified [...] ICD10 Code Diagnosis IMO Codes Diagnosis Note [id number] SHARON Crook [facility] - HOME [address] [facility], [place] [address] 08/10/2022 12:11:02 08/11/2022 15:37:47 Urge incontinence of urine [id number] N39.41 history of urinary incontinen ce, takes [...] condition, she will call if any question. [id number] Mohini LAINE Be[facility] - HOME [address] [place] [address] 08/15/2022 12:14:22 08/21/2022 15:49:36 Venous stasis edema of bilateral lower limbs [id number] 4499741 I87.2 Dry skin dermatitis 2600 23809 L85.3 Health Concerns Section Related Observation LastModified by Organization Detai ls LastModified Time None Recorded Concern Status LastModified by Organization Details LastModified Time None Recorded Advance Directives Directive None Recorded Payers Insurance Date Sequence Insurance Name Policy Number Policy Julio Covered Member ID Julio Member ID Guarantor Name 08/10/2022 1 *SELF PAY* Shonda Hernadez [id number] Shonda Toure. 08/14/2022 1 [place] [employer] Shonda A Kane [id number] Shonda Cerda 09/12/2022 2 [place]) [id number] Shonda Hernadez [id number] Shonda Toure. Notes Date Note Type [...] No urgency. SHARON Crook [address], [place], [address], [place] [facility] 08/10/2022 13:49:12 08/15/2022 text/html General HPI Template - DHReported by Patient 82 YO F patient established with , however new to provider. Patient complains of bilateral itchy red lower extremity. States she has had several surgeries to her left foot which includes bunionectomy in 2018. She is followed by [facility] document preparation specialist as well as cotton wringer. Patient states since surgery she some numbness and tingling with limited ROM to toes. Swelling is at baseline however the red appearance seems to be worse than usual for the last several days/week? April Ramos, LAINE [address], [place], [address], [place] [facility] 08/20/2022 10:30:52 OBGyn Episode No OBEpisode recorded.
--- NOTE | 2025-10-01 16:18 | PHA.MEDREC ---
Pharmacy Consult ? Medication Reconciliation Pharmacy has completed the medication reconciliation. Patient was transferred to SALARY AND WAGE ADMINISTRATOR status from [id number].
--- NOTE | 2025-10-01 18:29 | PC.NURSE ---
Continuous morphine drip started at 1711, verified with BRADEN Leonardo
--- NOTE | 2025-10-02 08:58 | MHC.CM.PN ---
PT ASSESSED BY [facility] RN AND ADMISSION STATUS CHANGED TO GIP ON 10/01/25 CM FOLLOWING.
--- NOTE | 2025-10-02 09:33 | PC.NURSE ---
Morphine ggt checked at change of shift with RN Lisy, values in pump confirmed with orders in MAR.
--- NOTE | 2025-10-02 09:36 | PC.NURSE ---
Pt continues to be on GIP hopsice. Morphine ggt infusing per MAR, pt appears comfortable. Daughter at bedside politely declining any AM hygiene or turn and reposition at this time.
--- NOTE | 2025-10-02 12:54 | HO.PM.IMPN ---
Subjective Subjective Date of Service: 10/02/25 Interval History: Remains unresponsive but comfortable on morphine drip Review of Systems Unable to obtain Physical Exam Const: Other: Unresponsive Resp: Other: Clear to auscultation bilaterally no rales rhonchi or wheezes Cardio: Other: No S4; positive S1-S2; no S3 murmurs rubs or gallops GI: Other: Soft nontender nondistended normoactive bowel sounds Extrem: Other: No edema bilaterally Objective Data Active Medications Acetaminophen (Acetaminophen 325 Mg Tablet) 650 mg PO Q4H PRN PRN Reason: Fever >/= 100, Pain, mild 1-3 Diazepam (Diazepam 10 Mg/2 Ml Cartridge) 2.5 mg IVPUSH Q2H PRN PRN Reason: anxiety/restlessness Docusate Sodium (Docusate Sodium 100 Mg Capsule) 100 mg PO BEDTIME [facility] Last Admin: 10/01/25 19:05 Dose: Not Given Documented By: ANDREW Non-Admin Reason: NPO Morphine Sulfate (Morphine Sulfate/Ns) 100 mg in 100 mls @ 0 mls/hr IVCONT .Q0M [facility]; Protocol Last Admin: 10/01/25 15:12 Dose: 2 mg/hr, 2 mls/hr Documented By: BRADY Ondansetron HCl (Ondansetron Odt 4 Mg Tab.Rapdis) 4 mg TRANSLINGU Q8H PRN PRN Reason: Nausea and Vomiting Assessment and Plan (1) Acute ischemic stroke: Status: Acute Plan 85-year-old female suffered an acute ischemic stroke with poor response to therapy. Admitted GI IP hospice. -morphine drip -PRN Valium as needed for agitation/anxiety -scopolamine patch Quality Stroke Does the patient have a stroke diagnosis?: No VTE Prior VTE?: No VTE Risk Level:: Medical - moderate - high VTE Device Contraindication: Treatment Not Indicated VTE Drug Contraindication: Treatment Not Indicated
--- NOTE | 2025-10-02 17:11 | PC.NURSE ---
Home Son states family will be using [facility].
--- NOTE | 2025-10-02 22:38 | PC.NURSE ---
morphine drip confirmed with BRADEN Leonardo at shift change, family at bedside requesting that pt care be minimized to frequent checks of pulse and respirations, they are refusing any other pt care, q2 turning and repositioning at this time. Pt resting with eyes closed, breathing even and unlabored with a resp rate of 12, pulse strong and even in all extremities. Pt family has no other requests at this time.
[2025-10-03 07:12] VITALS: RESP 12
[2025-10-03] MEDS: diazePAM 10 MG/2 ML CARTRIDGE 2.5 MG IVPUSH (08:59)
[2025-10-03] MEDS: Morphine Sulfate/NS 100 MG/100 ML PLAST..BAG IVCONT (09:58)
--- NOTE | 2025-10-03 11:53 | PC.NURSE ---
Family allowed this RN and METAL CRAFTS TEACHER to preform AM hygiene earlier in shift, PRN Valium given at this time for restlessness per MAR. Hospice Nurse and MD Ambrose at bedside for assessment, see report for details.
--- NOTE | 2025-10-03 11:57 | PC.NURSE ---
06:45 change of shift safety check preformed with BRADEN Vallejo, Morphine dose and rate confirmed with MAR. 11:58 New Bag of Morphine hung with BRADEN Obregon, rate and dose unchanged 2mg/hr. No waste required from old bag, non-luer lock tubing remained the same with morphine in ggt chamber and tubing from previous bag.
--- NOTE | 2025-10-03 13:58 | P.PNIM_ITS ---
Subjective Subjective Date of Service: 10/03/25 Interval History: Remains comfortable on morphine drip Review of Systems Unable to obtain Physical Exam Vital Signs: Vital Signs: Last Vital Signs Resp 12 10/03/25 07:12 Const: Other: Unresponsive Resp: Other: Clear to auscultation bilaterally no rales rhonchi or wheezes Cardio: Other: No S4; positive S1-S2; no S3 murmurs rubs or gallops GI: Other: Soft nontender nondistended normoactive bowel sounds Extrem: Other: No edema bilaterally Objective Data Active Medications Acetaminophen (Acetaminophen 325 Mg Tablet) 650 mg PO Q4H PRN PRN Reason: Fever >/= 100, Pain, mild 1-3 Diazepam (Diazepam 10 Mg/2 Ml Cartridge) 2.5 mg IVPUSH Q2H PRN PRN Reason: anxiety/restlessness Last Admin: 10/03/25 08:59 Dose: 2.5 mg Documented By: WALI Docusate Sodium (Docusate Sodium 100 Mg Capsule) 100 mg PO BEDTIME [facility] Last Admin: 10/02/25 20:21 Dose: Not Given Documented By: LORRAINE Non-Admin Reason: Patient Condition Contraindication Morphine Sulfate (Morphine Sulfate/Ns) 100 mg in 100 mls @ 0 mls/hr IVCONT .Q0M [facility]; Protocol Last Admin: 10/03/25 09:58 Dose: 2 mg/hr, 2 mls/hr Documented By: WALI Ondansetron HCl (Ondansetron Odt 4 Mg Tab.Rapdis) 4 mg TRANSLINGU Q8H PRN PRN Reason: Nausea and Vomiting Assessment and Plan (1) Acute ischemic stroke: Status: Acute Plan 85-year-old female suffered an acute ischemic stroke with poor response to therapy. Admitted GI IP hospice. -morphine drip -PRN Valium as needed for agitation/anxiety -scopolamine patch Quality Stroke Does the patient have a stroke diagnosis?: No VTE Prior VTE?: No VTE Risk Level:: Medical - moderate - high VTE Device Contraindication: Treatment Not Indicated VTE Drug Contraindication: Treatment Not Indicated
[2025-10-03 17:00] VITALS: RESP 12
[2025-10-03 17:13] VITALS: RESP 12
--- NOTE | 2025-10-03 20:40 | PC.NURSE ---
Morphine drip verified with Malissa at bedside. Family at bedside. Pt RR 14. Will continue to monitor pt.
[2025-10-03 20:51] VITALS: RESP 14
[2025-10-04] MEDS: diazePAM 10 MG/2 ML CARTRIDGE 2.5 MG IVPUSH (00:19)
[2025-10-04 01:45] VITALS: RESP 13
[2025-10-04 03:32] VITALS: RESP 12
[2025-10-04 06:01] VITALS: RESP 13
[2025-10-04] MEDS: Morphine Sulfate/NS 100 MG/100 ML PLAST..BAG IVCONT (13:29)
--- NOTE | 2025-10-04 14:05 | P.PNIM_ITS ---
Subjective Subjective Date of Service: 10/04/25 Interval History: No acute changes. Remains on morphine drip 2 mg an Review of Systems Unable to obtain Physical Exam Vital Signs: Vital Signs: Last Vital Signs Resp 13 10/04/25 06:01 Const: Other: Unresponsive Resp: Other: Clear to auscultation bilaterally no rales rhonchi or wheezes Cardio: Other: No S4; positive S1-S2; no S3 murmurs rubs or gallops GI: Other: Soft nontender nondistended normoactive bowel sounds Extrem: Other: No edema bilaterally Objective Data Active Medications Acetaminophen (Acetaminophen 325 Mg Tablet) 650 mg PO Q4H PRN PRN Reason: Fever >/= 100, Pain, mild 1-3 Diazepam (Diazepam 10 Mg/2 Ml Cartridge) 2.5 mg IVPUSH Q2H PRN PRN Reason: anxiety/restlessness Last Admin: 10/04/25 00:19 Dose: 2.5 mg Documented By: ANDREW Docusate Sodium (Docusate Sodium 100 Mg Capsule) 100 mg PO BEDTIME [facility] Last Admin: 10/03/25 19:10 Dose: Not Given Documented By: ANDREW Non-Admin Reason: NPO Morphine Sulfate (Morphine Sulfate/Ns) 100 mg in 100 mls @ 0 mls/hr IVCONT .Q0M [facility]; Protocol Last Admin: 10/04/25 13:29 Dose: 2 mg/hr, 2 mls/hr Documented By: NIYA Ondansetron HCl (Ondansetron Odt 4 Mg Tab.Rapdis) 4 mg TRANSLINGU Q8H PRN PRN Reason: Nausea and Vomiting Scopolamine (Scopolamine 1.5 Mg Patch.Td.3) 1.5 mg TRANSDERMA Q72H [facility] Last Admin: 10/04/25 00:20 Dose: 1.5 mg Documented By: ANDREW Assessment and Plan (1) Acute ischemic stroke: Status: Acute Plan 85-year-old female suffered an acute ischemic stroke with poor response to therapy. Admitted GI IP hospice. -morphine drip -PRN Valium as needed for agitation/anxiety -scopolamine patch Quality Stroke Does the patient have a stroke diagnosis?: No VTE Prior VTE?: No VTE Risk Level:: Medical - moderate - high VTE Device Contraindication: Treatment Not Indicated VTE Drug Contraindication: Treatment Not Indicated
--- NOTE | 2025-10-05 07:30 | P.PNIM_ITS ---
Subjective Subjective Date of Service: 10/05/25 Interval History: Pt appears comfortable Review of Systems Review of Systems: Yes all other systems are reviewed and are negative Physical Exam Vital Signs: Vital Signs: Last Vital Signs Resp 13 10/04/25 06:01 Objective Data Active Medications Acetaminophen (Acetaminophen 325 Mg Tablet) 650 mg PO Q4H PRN PRN Reason: Fever >/= 100, Pain, mild 1-3 Diazepam (Diazepam 10 Mg/2 Ml Cartridge) 2.5 mg IVPUSH Q2H PRN PRN Reason: anxiety/restlessness Last Admin: 10/04/25 00:19 Dose: 2.5 mg Documented By: ANDREW Docusate Sodium (Docusate Sodium 100 Mg Capsule) 100 mg PO BEDTIME [facility] Last Admin: 10/04/25 19:40 Dose: Not Given Documented By: LORRAINE Non-Admin Reason: Patient Condition Contraindication Morphine Sulfate (Morphine Sulfate/Ns) 100 mg in 100 mls @ 0 mls/hr IVCONT .Q0M [facility]; Protocol Last Admin: 10/04/25 13:29 Dose: 2 mg/hr, 2 mls/hr Documented By: NIYA Ondansetron HCl (Ondansetron Odt 4 Mg Tab.Rapdis) 4 mg TRANSLINGU Q8H PRN PRN Reason: Nausea and Vomiting Scopolamine (Scopolamine 1.5 Mg Patch.Td.3) 1.5 mg TRANSDERMA Q72H [facility] Last Admin: 10/04/25 00:20 Dose: 1.5 mg Documented By: ANDREW Assessment and Plan (1) Acute ischemic stroke: Status: Acute Plan Acute left thalamic infarct Bacteremia advanced alzheimers dementia pafib htn, hld tia carotid stenosis pvd Decubitus ulcer, stage III Seizure disorder Patient is an 84 year old female with history of advanced alzheimers dementia, pafib, htn, hld, tia, carotid stenosis, pvd, presented with confusion and was noted acute left thalamic infarct 09/13/25. She was noted to be encephalopathic and the team discussed patient's poor prognosis with patient's son, daughter (HCP), and daughter in law (grandchildren were present as well). She has been only minimally responsive with dysphagia and known p.o. intake in over 1 week. The patient remained encephalopathic/minimally responsive despite treatment of acute issues. She remains on IV fluids . Elected against parental nutrition/declined gtube. Discussed [employer] with daughter, Yenni, and 3 sons as there is a low likelihood of meaningful recovery with poor prognosis. Patient was nonverbal, grunting to stimuli, with tremors, history was obtained through chart review and speaking with daughter at bedside. Patient admitted to general medical floor and continued to decline. Discussion was had with family who opted for comfort measures . Treatment is geared towards keeping her comfortable. Plan -Morphine drip -PRN Valium as needed for agitation/anxiety -scopolamine patch -[place] Quality Stroke Does the patient have a stroke diagnosis?: No VTE Prior VTE?: No VTE Risk Level:: Medical - moderate - high VTE Device Contraindication: Treatment Not Indicated VTE Drug Contraindication: Treatment Not Indicated
--- NOTE | 2025-10-05 12:43 | PC.NURSE ---
Safety check performed at change of shift and morphine drip rate and dose confirmed with Nelsy FELICIANO, per DEC.
[2025-10-05] MEDS: Morphine Sulfate/NS 100 MG/100 ML PLAST..BAG IVCONT (14:10)
--- NOTE | 2025-10-05 14:12 | PC.NURSE ---
Morphine drip bag changed with Horacio Barrios RN as witness. Rate increased to 3mg/hr per protocol.
--- NOTE | 2025-10-05 15:37 | MHC.CM.PN ---
CM WAS CALLED TO ROOM PER REQUEST OF THE FAMILY. SON IS INQUIRING HOW THEY MAY GET ACCESS TO PT'S PORTAL SO THEY HAVE UP TO THE MINUTE INFORMATION ON HER CONDITION. CM OFFERED SUPPORT AND SUGGESTED THEY SPEAK WITH HOSPICE IN REGARDS TO SPECIFIC PLAN. SON HAS CONTACT CARD AND WILL REACH OUT TO HOSPICE. CM WILL CONTINUE TO FOLLOW.
--- NOTE | 2025-10-05 19:15 | PC.NURSE ---
Safety check performed at change of shift. Pt's morphine drip rate & dose was confirmed with previous shift RN [place], see MAR.
[2025-10-06] MEDS: Atropine Sulfate 1 % Ophth Sol 2 ML BOTTLE 2 DROP SUBLINGUAL (02:58)
--- NOTE | 2025-10-06 04:51 | PC.NURSE ---
Pt w/ increased secretions, PRN Atropine drops were administered along w/ bedside suctioning. Pt's morphine drip was increased by 1mg/hr with RN Margaret Pruett as witness at 03:17. Morphine drip increased to 4mg/hr, per protocol, see MAR.
--- NOTE | 2025-10-06 07:01 | P.DN_ITS ---
Discharge Sum: Prov Provider Primary care physician: Buster Hyde MD Admitting clinician: Matteo Ambrose Attending physician on admission: Slime Quarles Pronouncing clinician: Shonda Swanson Discharge Sum: Diag PCOD Cause of : Acute ischemic stroke Contributing Factors (1) Bacteremia: (2) Dementia with behavioral problem: Discharge Sum: Summary Date and Time Date of admission: 10/01/25 14:17 Date of : 10/06/25 Time of : 06:30 Summary Details: Patient is an 84 year old female with history of advanced alzheimers dementia, pafib, htn, hld, tia, carotid stenosis, pvd, presented with confusion and was noted acute left thalamic infarct 09/13/25. She was noted to be encephalopathic and the team discussed patient's poor prognosis with patient's son, daughter (HCP), and daughter in law (grandchildren were present as well). She has been only minimally responsive with dysphagia and known p.o. intake in over 1 week. The patient remained encephalopathic/minimally responsive despite treatment of acute issues. She remains on IV fluids . Elected against parental nutrition /declined gtube. Discussed [employer] with daughter, Yenni, and 3 sons as there is a low likelihood of meaningful recovery with poor prognosis. Patient was nonverbal, grunting to stimuli, with tremors, history was obtained through chart review and speaking with daughter at bedside. Patient admitted to general medical floor and continued to decline. Discussion was had with family who opted for comfort measures on 10/01/25. Treatment geared towards keeping her comfortable. I was called to patient's bedside to pronounce patient has passed . No spontaneous movement were present. There was not respond to verbal or tactile stimuli. Pupils were mid dilated and fixed. No breath sounds were appreciated over either lung field. No carotid pulses were palpable. No heart sounds were auscultated over entire pericardium. Patient was pronounced at 10/06/2025 at 6:30AM. Family was bedside.? Patient was [employer]. Additional Data Confirmation of as documented by pronouncing clinician: no pulse, no respirations, no heart sounds and pupils fixed and dilated Family: at bedside Attending physician: Slime Quarles MD Was code activated?: No Autopsy requested?: No tax examiner notified?: No Hospice patient?: Yes
--- NOTE | 2025-10-06 07:28 | PC.NURSE ---
Pt , morphine drip stopped, remaining morphine wasted w/ Alisha Tamez RN.
== END 2025-10-06 06:30 | disposition expired | DRG 951 ==
PROVIDERS: Admitting Provider Hospitalist; PCP Internal Medicine; Visit Provider Student in an Organized Health Care Education/Training Program
DX: Z51.5 Encounter for palliative care (principal); F03.918 Unspecified dementia, unspecified severity, with other behavioral disturbance; I69.398 Other sequelae of cerebral infarction; I69.391 Dysphagia following cerebral infarction; R13.10 Dysphagia, unspecified
CPT/HCPCS: J2270; J3360

== ENCOUNTER → 2025-10-01 | Outpatient (BNV) | payer OTHER, SELFPAY | PROVIDERS: Admitting Provider Hospitalist; Visit Provider Hospitalist | DX: I63.9 Cerebral infarction, unspecified (principal) | CPT/HCPCS: 99222; 99233 ==